=== PATIENT | male | born 1940 | race Two or more races ===

== ENCOUNTER 2016-09-19 13:43 | Emergency (ER) | payer OTHER ==
[2016-09-19 13:59] VITALS: TEMP 98.7; BMI 43.4
[2016-09-19] MEDS ORDERED: morphine CARPU-JECT 2 MG/1 ML DISP.SYRIN IVPUSH ONE (14:16)
[2016-09-19] MEDS ORDERED: morphine CARPU-JECT 2 MG/1 ML DISP.SYRIN ONE (14:38)
--- NOTE | 2016-09-19 15:17 | PDOC ---
History of Present Illness - General Chief Complaint: Pain, Acute Stated Complaint: PAIN Time Seen by Provider: 09/19/16 14:00 History Source: Patient Exam Limitations: No Limitations - History of Present Illness Travel History: No Initial Comments: 09/19/16 14:09 76-year-old male presents to the ED with complaints of right lower back pain that began yesterday without fever, chills, nausea, change in urine pattern, recent injury, diarrhea, constipation history of gallstones, history of kidney stones abdominal distention, or rash Timing/Duration: reports: constant Quality: reports: moderate, aching, sharpness Abdominal Pain Onset Location: reports: flank Pain Radiation: reports: back Activities at Onset: reports: none Aggravating Factors: improves with: None Alleviating Factors: improves with: None Past History - Travel Traveled outside of the country in the last 30 days: No - Past Medical History Allergies/Adverse Reactions: Allergies Allergy/AdvReac Type Severity Reaction Status Date / Time No Known Allergies Allergy Verified 09/19/16 13:55 Home Medications: Ambulatory Orders Acetaminophen [Tylenol .Regular Strength -] 650 mg PO Q4H PRN #0 tablet Atorvastatin Ca [Lipitor] 80 mg PO HS #0 tab 04/27/13 Omeprazole [Prilosec (RX)] 40 mg PO DAILY #0 capsule.dr 04/27/13 Aspirin [Aspirin EC] 81 mg PO DAILY 10/19/15 Furosemide [Lasix -] 40 mg PO DAILY 10/19/15 Insulin Aspart [Novolog] 15 unit SQ AC 10/19/15 Insulin Degludec [Tresiba Flextouch U-200] 90 unit SQ DAILY 10/19/15 Metolazone [Zaroxolyn -] 2.5 mg PO DAILY 10/19/15 Metoprolol Tartrate [Lopressor -] 25 mg PO DAILY 10/19/15 Tamsulosin HCl [Flomax] 0.4 mg PO DAILY 10/19/15 Cardiac Disorders: Yes (LA X 2) COPD: Yes Diabetes: Yes GI Disorders: Yes (GERD) HTN: Yes Hypercholesterolemia: Yes - Surgical History Cardiac Surgery: Yes (CATH,cardiac bypass in ) - Psycho/Social/Smoking Cessation Hx Anxiety: No Suicidal Ideation: No Smoking Status: No Smoking History: Former smoker Have you smoked in the past 12 months: No Number of Cigarettes Smoked Daily: 0 If you are a former smoker, when did you quit?: 30 years ago Information on smoking cessation initiated: No Hx Alcohol Use: No Drug/Substance Use Hx: No Substance Use Type: None Hx Substance Use Treatment: No Patient Lives Alone: No Lives with/in: spouse/SO Review of Systems - Review of Systems Able to Perform ROS?: Yes Constitutional: No: Symptoms Reported HEENTM: No: Symptoms Reported Respiratory: No: Symptoms reported Cardiac (ROS): No: Symptoms Reported ABD/GI: No: Symptoms Reported : Yes: Flank Pain Musculoskeletal: Yes: Back Pain Integumentary: No: Symptoms Reported Neurological: No: Symptoms reported Psychiatric: No: Emotional Problems *Physical Exam - Vital Signs Last Vital Signs Temp Pulse Resp BP Pulse Ox 98.7 F 95 H 20 150/59 96 09/19/16 13:56 09/19/16 13:56 09/19/16 13:56 09/19/16 13:56 09/19/16 13:56 - Physical Exam General Appearance: Yes: Nourished, Appropriately Dressed. No: Apparent Distress HEENT: positive: EOMI, RC. negative: Pale Conjunctivae Neck: positive: Supple Respiratory/Chest: positive: Lungs Clear, Normal Breath Sounds. negative: Respiratory Distress, Accessory Muscle Use Cardiovascular: positive: Regular Rhythm, Regular Rate. negative: Murmur Gastrointestinal/Abdominal: positive: Soft, Tenderness (right flank) Musculoskeletal: positive: CVA Tenderness (R) (mild) Integumentary: positive: Normal Color, Warm, Moist Neurologic: positive: Motor Strength 5/5 ( ambulatory) ED Treatment Course - LABORATORY CBC & Chemistry Diagram: 09/19/16 14:28 09/19/16 14:28 - RADIOLOGY Radiology Studies Ordered: Category Date Time Status CHEST X-RAY PORTABLE* [RAD] Stat Radiology 09/19/16 14:15 Taken - Medications Given in the ED: ED Medications Discontinued Medications Generic Name Dose Route Start Last Admin Trade Name Freq PRN Reason Stop Dose Admin Morphine Sulfate 2 mg 09/19/16 14:16 09/19/16 15:00 Morphine Injection - IVPUSH 09/19/16 14:17 2 mg ONCE ONE Administration Medical Decision Making - Medical Decision Making 09/19/16 15:01 Patient with complaints of right flank right lower back pain. Patient exam had mild right CVA tenderness with mild right flank pain and right posterior iliac crest discomfort patient ordered for labs, x-ray, urine and morphine for pain. 09/19/16 16:56 Laboratory Tests 10/19/15 04/15/16 09/19/16 23:00 21:00 14:28 WBC 8.9 D Hgb 11.3 L Hct 35.0 L RDW 16.3 H MPV 9.1 Neutrophils % 82.8 Sodium Potassium Chloride Carbon Dioxide Anion Gap BUN Creatinine 1.7 H 2.5 H D Random Glucose AST ALT Total Protein Albumin Lipase Urine Glucose (UA) Urine Ketones Urine Blood Urine Nitrite Ur Leukocyte Esterase Urine RBC Urine WBC 09/19/16 09/19/16 09/19/16 14:28 14:28 14:28 WBC Hgb Hct RDW MPV Neutrophils % Sodium 139 Potassium 4.1 Chloride 101 Carbon Dioxide 25 Anion Gap 13 BUN 47 H Creatinine 2.1 H Random Glucose 167 H D AST 13 L D ALT 15 D Total Protein 7.5 Albumin 3.0 L Lipase 133 Urine Glucose (UA) 1+ H Urine Ketones Negative Urine Blood 1+ H Urine Nitrite Negative Ur Leukocyte Esterase Negative Urine RBC 1 Urine WBC <1 Chest x-ray shows cardiomegaly without acute disease. Patient states feeling better after receiving the morphine. Patient will be discharged home to follow up with his primary care physician. *DC/Admit/Observation/Transfer Diagnosis at time of Disposition: Right flank pain - Discharge Dispostion Disposition: HOME Condition at time of disposition: Improved - Referrals Referrals: Diamante Alvarado MD [Primary Care Provider] - - Patient Instructions Printed Discharge Instructions: DI for Flank Pain Additional Instructions: Take Motrin for discomfort and follow-up with your primary care physician. Return to ED if symptoms worsen
[2016-09-19 15:22] LABS: BASOPHIL 0.5 % (0-2.0); EOSINOPHIL 0.4 % (0-4.5); MCH 26.9 pg (25.7-33.7); MCHC 32.2 g/dl (32.0-35.9); MEAN CELL VOLUME 83.6 fl (80-96); MEAN PLT VOLUME 9.1 fl (7.5-11.1); NEUTROPHILS 82.8 % (42.8-82.8); PLATELET COUNT 175 K/MM3 (134-434); RDW 16.3 % (11.9-15.9); WHITE BLOOD COUNT 8.9 K/mm3 (4.0-10.0)
[2016-09-19 15:25] LABS: URINE APPEARANCE CLEAR; URINE BILIRUBIN NEGATIVE (NEGATIVE); URINE COLOR STRAW; URINE GLUCOSE (UA) 1+ (NEGATIVE); URINE KETONE NEGATIVE (NEGATIVE); URINE LEUK ESTERASE NEGATIVE (NEGATIVE); URINE NITRITE NEGATIVE (NEGATIVE); URINE PROTEIN NEGATIVE (NEGATIVE); URINE UROBILINOGEN NEGATIVE E.U./dl (0.2-1.0)
[2016-09-19 15:29] LABS: BILIRUBIN,TOTAL 0.6 mg/dL (0.2-1.0); COCKROFT - GAULT 43.46; CREATININE 2.1 mg/dL (0.7-1.3); TOT PROT 7.5 g/dl (6.4-8.2); URINE BLOOD 1+ (NEGATIVE)
[2016-09-19 15:35] LABS: URINE HYALINE CAST 4 /lpf; URINE MUCUS RARE; URINE RBC 1 /hpf (0-3); URINE WBC <1 /hpf (3-5)
[2016-09-19 19:00] VITALS: BP 130/71; PULSE 81
== END 2016-09-19 17:20 | disposition home or self-care (01) ==
LOC: JER 13:43
PROC: 3E033NZ Introduction of Analgesics, Hypnotics, Sedatives into Peripheral Vein, Percutaneous Approach (ICD-10-PCS; principal; 2016-09-19)
DX: R10.31 Right lower quadrant pain (principal); I10 Essential (primary) hypertension; J44.9 Chronic obstructive pulmonary disease, unspecified; I25.2 Old myocardial infarction; Z79.4 Long term (current) use of insulin; Z79.82 Long term (current) use of aspirin; K21.9 Gastro-esophageal reflux disease without esophagitis; E78.00 Pure hypercholesterolemia, unspecified; Z87.891 Personal history of nicotine dependence
CPT/HCPCS: 36415; 71010-TC; 80053; 81003; 81015; 83690; 85025; 87086; 99283-25

== ENCOUNTER 2016-10-13 19:17 | Inpatient (IN) | payer OTHER ==
[2016-10-13] MEDS ORDERED: KETOROLAC TROMETHAMINE 30 MG/1 ML VIAL IVPUSH ONE (20:35)
[2016-10-13] MEDS ORDERED: SODIUM CHLORIDE 0.9% 500 ML INFUS.BAG IV ONE (20:36)
[2016-10-13] MEDS ORDERED: KETOROLAC TROMETHAMINE 30 MG/1 ML VIAL ONE (21:01)
[2016-10-13 21:10] LABS: BASOPHIL 0.7 % (0-2.0); MCH 26.5 pg (25.7-33.7); MEAN CELL VOLUME 82.9 fl (80-96); PLATELET COUNT 208 K/MM3 (134-434); RDW 16.3 % (11.9-15.9); WHITE BLOOD COUNT 10.6 K/mm3 (4.0-10.0)
[2016-10-13] MEDS ORDERED: FUROSEMIDE 40 MG/4 ML INJECTABLE VIAL IVPB ONE (21:22)
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
[2016-10-13 21:31] LABS: ALBUMIN 3.1 g/dl (3.4-5.0); ANION GAP 11 (8-16); BILIRUBIN,TOTAL 0.8 mg/dL (0.2-1.0); CALCIUM 8.6 mg/dL (8.5-10.1); CO2 27 mmol/L (21-32); GLUCOSE,RANDOM 76 mg/dL (74-106); SGOT/AST 16 U/L (15-37); SGPT/ALT 17 U/L (12-78); TOT PROT 7.7 g/dl (6.4-8.2)
[2016-10-13 21:34] LABS: ALK PHOS 122 U/L (45-117); TROPONIN I < 0.02 ng/ml (0.00-0.05)
[2016-10-13] MEDS ORDERED: morphine CARPU-JECT 2 MG/1 ML DISP.SYRIN IVPUSH ONE (21:40)
[2016-10-13] MEDS ORDERED: METOPROLOL SUCCINATE 25 MG TAB.SR.24H (FP) PO ONE (23:06)
[2016-10-13] MEDS ORDERED: TAMSULOSIN HCL 0.4 MG CAP.ER.24H (FP) PO ONE (23:10)
[2016-10-13] MEDS ORDERED: morphine CARPU-JECT 2 MG/1 ML DISP.SYRIN ONE (23:32)
[2016-10-13] MEDS ORDERED: TAMSULOSIN HCL 0.4 MG CAP.ER.24H (FP) ONE (23:33)
[2016-10-13] MEDS ORDERED: METOPROLOL SUCCINATE 50 MG TAB.SR.24H (FP) ONE (23:33)
[2016-10-13] MEDS ORDERED: FUROSEMIDE 40 MG/4 ML INJECTABLE VIAL ONE (23:33)
[2016-10-14] MEDS ORDERED: ACETAMINOPHEN 1000 MG/100 ML VIAL (NON FORMULARY) IVPB ONE
[2016-10-14] MEDS ORDERED: ACETAMINOPHEN INJECTION 100 ML IVPB ONE (01:17)
[2016-10-14] MEDS ORDERED: morphine CARPU-JECT 2 MG/1 ML DISP.SYRIN IVPUSH ONE (01:28)
[2016-10-14] MEDS: FUROSEMIDE 40 MG/4 ML INJECTABLE VIAL IVPB SCH ×2 (07:10→15:19)
[2016-10-14] MEDS ORDERED: FUROSEMIDE 40 MG/4 ML INJECTABLE VIAL ONE (07:11)
[2016-10-14 07:18] LABS: BASOPHIL 0.8 % (0-2.0); EOSINOPHIL 2.6 % (0-4.5); MCH 27.2 pg (25.7-33.7); MEAN CELL VOLUME 82.4 fl (80-96); MEAN PLT VOLUME 8.8 fl (7.5-11.1); NEUTROPHILS 70.5 % (42.8-82.8); PLATELET COUNT 193 K/MM3 (134-434); RDW 16.3 % (11.9-15.9); WHITE BLOOD COUNT 7.2 K/mm3 (4.0-10.0)
[2016-10-14 07:37] LABS: ANION GAP 8 (8-16); CALCIUM 8.3 mg/dL (8.5-10.1); CO2 29 mmol/L (21-32); CREATININE 2.1 mg/dL (0.7-1.3); GLUCOSE,RANDOM 73 mg/dL (74-106)
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
[2016-10-14] MEDS: INSULIN SLIDING SCALE (NOVOLOG) 1 VIAL SQ SCH ×4 (11:10→22:53)
[2016-10-14] MEDS: INSULIN DETEMIR 100 UNITS/ML MDV SQ SCH ×2 (11:11→22:54)
[2016-10-14] MEDS: PANTOPRAZOLE 40 MG TABLET (FP) PO SCH (11:12)
[2016-10-14] MEDS: HEPARIN NA (PORCINE) 5,000 UNITS/ML 1ML VIAL SQ SCH ×2 (11:12→21:02)
[2016-10-14] MEDS ORDERED: INSULIN REGULAR HUMAN 100 UNITS/ML *VIAL ONE (11:15)
--- NOTE | 2016-10-14 14:20 | EKG ---
Test Reason : Blood Pressure : / mmHG Vent. Rate : 091 BPM Atrial Rate : 066 BPM P-R Int : 000 ms QRS Dur : 142 ms QT Int : 400 ms P-R-T Axes : 000 -30 025 degrees QTc Int : 492 ms UNDETERMINED RHYTHM WITH FREQUENT PREMATURE VENTRICULAR COMPLEXES , POSSIBLE ATRIAL FIBRILLATION LEFT AXIS DEVIATION RIGHT BUNDLE BRANCH BLOCK CANNOT RULE OUT INFERIOR INFARCT , AGE UNDETERMINED ABNORMAL ECG WHEN COMPARED WITH ECG OF 24-APR-2013 10:40, POSSIBLE RHYTHM CHANGE Confirmed by JESSE MARCANO MD ([id number]) on 10/14/2016 2:20:00 PM Referred By: Confirmed By:JESSE MARCANO MD
[2016-10-14 16:18] VITALS: BMI 37.5
--- NOTE | 2016-10-14 19:06 | HP ---
Admitting History and Physical - Primary Care Physician PCP: pain LBP - Admission History of Present Illness: 76 year old male, with a significant PMH of hypertension, [place] x2, cardiac stents (2012), COPD, diabetes, and hyperlipidemia, s/p CABG s/p MA (2012) who presents to the ER with increased low back pain for 4 days, along with increased edema to legs bilateral. The patient reports he has experienced low back pain in the past, however, reports he has been unable to walk without pain today. He reports the pain is localized to the lumbar region of his spine with pain to bilateral paraspinal muscles. ++ numbness in legs,( HX of DM); difficulty walking, no BB issues. VAs 5/10 He denies dysuria, frequency, urgency and hematuria. no weight loss. History Source: Patient, Medical Record Limitations to Obtaining History: No Limitations - Past Medical History Cardiovascular: Yes: HTN, MA, Other (CABG) Renal/: Yes: Renal Inusuff Endocrine: Yes: Diabetes Mellitus - Past Surgical History Past Surgical History: Yes: Bypass, CABG - Smoking History Smoking history: Never smoked Have you smoked in the past 12 months: No Aproximately how many cigarettes per day: 0 If you are a former smoker, when did you quit?: 30 years ago - Alcohol/Substance Use Hx Alcohol Use: No - Social History ADL: Independent History of Recent Travel: No Home Medications - Allergies Allergies/Adverse Reactions: Allergies Allergy/AdvReac Type Severity Reaction Status Date / Time No Known Allergies Allergy Verified 10/13/16 19:32 - Home Medications Home Medications: Ambulatory Orders Atorvastatin Ca [Lipitor] 80 mg PO HS #0 tab 04/27/13 Omeprazole [Prilosec (RX)] 40 mg PO DAILY #0 capsule. 04/27/13 Aspirin [Aspirin EC] 81 mg PO DAILY 10/19/15 Furosemide [Lasix -] 40 mg PO DAILY 10/19/15 Insulin Aspart [Novolog] 15 unit SQ AC 10/19/15 Insulin Degludec [Tresiba Flextouch U-200] 70 unit SQ AM 10/19/15 Metolazone [Zaroxolyn -] 2.5 mg PO DAILY 10/19/15 Metoprolol Tartrate [Lopressor -] 25 mg PO DAILY 10/19/15 Tamsulosin HCl [Flomax] 0.4 mg PO DAILY 10/19/15 Acetaminophen W/ Codeine #3 [Tylenol # 3 -] 1 tab PO PRN 10/13/16 Potassium Chloride 20 meq PO DAILY 10/13/16 Tamsulosin HCl [Flomax] 0.4 mg PO DAILY 10/13/16 Family Disease History - Family Disease History Family Disease History: Diabetes: Father, Mother Physical Examination Vital Signs: Vital Signs Temperature 97.8 F 10/14/16 15:50 Pulse Rate 80 10/14/16 15:50 Respiratory Rate 20 10/14/16 15:50 Blood Pressure 125/72 10/14/16 15:50 O2 Sat by Pulse Oximetry (%) 97 10/14/16 15:50 Constitutional: Yes: Well Nourished, No Distress, Calm Eyes: Yes: WNL, Conjunctiva Clear, EOM Intact HENT: Yes: WNL, Atraumatic, Normocephalic Neck: Yes: WNL, Supple, Trachea Midline Cardiovascular: Yes: WNL, Regular Rate and Rhythm Respiratory: Yes: WNL, Regular, CTA Bilaterally, Other (decreased at right base) Gastrointestinal: Yes: WNL, Normal Bowel Sounds, Other (midline surgical scar) Renal/: Yes: WNL Breast(s): Yes: WNL Musculoskeletal: Yes: WNL, Back Pain, Joint Stiffness, Muscle Pain Extremities: Yes: WNL Edema: No Peripheral Pulses WNL: Yes Integumentary: Yes: WNL Neurological: Yes: WNL, Alert, Oriented ...Motor Strength: WNL Psychiatric: Yes: WNL, Alert, Oriented Labs: CBC, BMP 10/14/16 06:51 10/14/16 06:51 Problem List - Problems (1) CHF (congestive heart failure) Assessment/Plan: elevated BMP ++Le edema + rales on exam EGAN not manifesteddue to severe DJD / possible spinal stenosis as limiting factor Plan IV lasix BID Follow BUN / Cr daily weights Code(s): I50.9 - HEART FAILURE, UNSPECIFIED (2) Spinal stenosis of lumbar region Assessment/Plan: MRI ordered Neurology consult ordered PT evaluation Code(s): M48.06 - SPINAL STENOSIS, LUMBAR REGION (3) Musculoskeletal pain Assessment/Plan: due to LB pathology neuropathy ?? Code(s): M79.1 - MYALGIA (4) HTN (hypertension) Assessment/Plan: controlled continue medications Code(s): I10 - ESSENTIAL (PRIMARY) HYPERTENSION
[2016-10-14 20:12] LABS: URINE APPEARANCE CLEAR; URINE BILIRUBIN NEGATIVE (NEGATIVE); URINE BLOOD NEGATIVE (NEGATIVE); URINE COLOR STRAW; URINE GLUCOSE (UA) NEGATIVE (NEGATIVE); URINE KETONE NEGATIVE (NEGATIVE); URINE LEUK ESTERASE NEGATIVE (NEGATIVE); URINE NITRITE NEGATIVE (NEGATIVE); URINE PROTEIN NEGATIVE (NEGATIVE); URINE UROBILINOGEN NEGATIVE E.U./dl (0.2-1.0)
[2016-10-14] MEDS: ATORVASTATIN CA 80 MG TABLET (FP) PO SCH (22:53)
[2016-10-15] MEDS: INSULIN SLIDING SCALE (NOVOLOG) 1 VIAL SQ SCH ×4 (06:29→23:04)
[2016-10-15] MEDS: FUROSEMIDE 40 MG/4 ML INJECTABLE VIAL IVPB SCH ×2 (06:29→15:45)
[2016-10-15] MEDS: INSULIN DETEMIR 100 UNITS/ML MDV SQ SCH ×2 (06:29→23:01)
[2016-10-15 07:45] LABS: BASOPHIL 0.8 % (0-2.0); EOSINOPHIL 2.4 % (0-4.5); MCH 27.4 pg (25.7-33.7); MCHC 33.6 g/dl (32.0-35.9); MEAN CELL VOLUME 81.6 fl (80-96); MEAN PLT VOLUME 8.3 fl (7.5-11.1); PLATELET COUNT 227 K/MM3 (134-434); RDW 16.5 % (11.9-15.9); WHITE BLOOD COUNT 8.9 K/mm3 (4.0-10.0)
[2016-10-15 09:00] LABS: CALCIUM 9.3 mg/dL (8.5-10.1)
[2016-10-15 09:08] LABS: ANION GAP 11 (8-16); CO2 30 mmol/L (21-32); GLUCOSE,RANDOM 74 mg/dL (74-106); MAGNESIUM 1.9 mg/dL (1.8-2.4)
[2016-10-15] MEDS: PANTOPRAZOLE 40 MG TABLET (FP) PO SCH (09:28)
[2016-10-15] MEDS: HEPARIN NA (PORCINE) 5,000 UNITS/ML 1ML VIAL SQ SCH ×2 (09:28→23:39)
[2016-10-15] MEDS ORDERED: BETAMET ACET/BETAMET NA PH 30 MG/5 ML VIAL ONE (14:43)
[2016-10-15] MEDS ORDERED: LIDOCAINE HCL 1%, 10 MG/ML (20ML VIAL) ONE (14:43)
[2016-10-15] MEDS ORDERED: LIDOCAINE HCL 1%, 10 MG/ML (20ML VIAL) IJ ONE (14:46)
[2016-10-15] MEDS ORDERED: IOHEXOL 180 MG/1 ML ML IJ ONE (14:47)
[2016-10-15] MEDS ORDERED: BUPIVACAINE HCL/PF 0.25% (2.5MG/ML) 10 ML VIAL IJ ONE (14:49)
[2016-10-15] MEDS ORDERED: BETAMET ACET/BETAMET NA PH 30 MG/5 ML VIAL IM ONE (14:50)
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
--- NOTE | 2016-10-15 17:37 | PN ---
Progress Note (short form) - Note Progress Note: 76 year old male, with a significant past medical history of hypertension, [place] x2 , cardiac stents (2012), COPD, diabetes, and hyperlipidemia, who presents to the emergency department with increased low back pain for 4 days. The patient reports he has experienced low back pain in the past, however, reports he has been unable to walk without pain today. He reports the pain is localized to the lumbar region of his spine with pain to bilateral paraspinal muscles. ++ numbness in legs,( HX of DM); difficulty walking, no BB issues. VAs 5/10 He denies dysuria, frequency, urgency and hematuria. no weight loss. FU : pain improved from yesterday , s/p epidural walking around without assist studies: MRI LSPINE : Impression: Moderate degenerative disease of lumbosacral spine. Degenerative changes articular facets predominant articular facets L4 L5, L5- S1. Diffuse bulging annulus L4-L5 contributing to minimal degree of stenosis with no evidence of large disc herniation. No evidence of spondylolisthesis, spondylolysis. The visualized retroperitoneal structures unremarkable. Doppler --no DVT - History Source History Provided By: Patient, Medical Record - Past Medical History Cardio/Vascular: Yes: HTN Renal/: Yes: Renal Inusuff Endocrine: Yes: Diabetes Mellitus - Alcohol/Substance Use Hx Alcohol Use: No - Smoking History Smoking history: Never smoked Have you smoked in the past 12 months: No Aproximately how many cigarettes per day: 0 If you are a former smoker, when did you quit?: 30 years ago - Social History Usual Living Arrangement: With Child ADL: Independent Home Medications - Allergies Allergies/Adverse Reactions: Allergies Allergy/AdvReac Type Severity Reaction Status Date / Time No Known Allergies Allergy Verified 10/13/16 19:32 - Home Medications Home Medications: Ambulatory Orders Atorvastatin Ca [Lipitor] 80 mg PO HS #0 tab 04/27/13 Omeprazole [Prilosec (RX)] 40 mg PO DAILY #0 oliver. 04/27/13 Aspirin [Aspirin EC] 81 mg PO DAILY 10/19/15 Furosemide [Lasix -] 40 mg PO DAILY 10/19/15 Insulin Aspart [Novolog] 15 unit SQ AC 10/19/15 Insulin Degludec [Tresiba Flextouch U-200] 70 unit SQ AM 10/19/15 Metolazone [Zaroxolyn -] 2.5 mg PO DAILY 10/19/15 Metoprolol Tartrate [Lopressor -] 25 mg PO DAILY 10/19/15 Tamsulosin HCl [Flomax] 0.4 mg PO DAILY 10/19/15 Acetaminophen W/ Codeine #3 [Tylenol # 3 -] 1 tab PO PRN 10/13/16 Potassium Chloride 20 meq PO DAILY 10/13/16 Tamsulosin HCl [Flomax] 0.4 mg PO DAILY 10/13/16 Family Disease History - Family Disease History Family Disease History: Diabetes: Father, Mother Physical Exam-Neuro Vital Signs: Vital Signs Period Temp Pulse Resp BP Sys/Whitehead Pulse Ox Last 24 Hr 97.7 F-98.1 F 70-89 18-20 117-140/60-81 97-97 Constitutional: Yes: Well Nourished, No Distress Neck: Yes: Supple Cardiovascular: Yes: Regular Rate and Rhythm Respiratory: Yes: Regular Labs: CBCD WBC 8.9 K/mm3 (4.0-10.0) 10/15/16 07:00 RBC 4.28 M/mm3 (4.00-5.60) 10/15/16 07:00 Hgb 11.7 GM/dL (11.7-16.9) D 10/15/16 07:00 Hct 35.0 % (35.4-49) L 10/15/16 07:00 MCV 81.6 fl (80-96) 10/15/16 07:00 MCHC 33.6 g/dl (32.0-35.9) 10/15/16 07:00 RDW 16.5 % (11.9-15.9) H 10/15/16 07:00 Plt Count 227 K/MM3 (134-434) 10/15/16 07:00 MPV 8.3 fl (7.5-11.1) 10/15/16 07:00 CMP Sodium 136 mmol/L (136-145) 10/15/16 07:00 Potassium 3.8 mmol/L (3.5-5.1) 10/15/16 07:00 Chloride 95 mmol/L (98-107) L 10/15/16 07:00 Carbon Dioxide 30 mmol/L (21-32) 10/15/16 07:00 Anion Gap 11 (8-16) 10/15/16 07:00 BUN 49 mg/dL (7-18) H 10/15/16 07:00 Creatinine 2.0 mg/dL (0.7-1.3) H 10/15/16 07:00 Creat Clearance w eGFR 32.56 (>60) 10/13/16 21:00 Calcium 9.3 mg/dL (8.5-10.1) 10/15/16 07:00 Total Bilirubin 0.8 mg/dL (0.2-1.0) D 10/13/16 21:00 AST 16 U/L (15-37) D 10/13/16 21:00 ALT 17 U/L (12-78) 10/13/16 21:00 Alkaline Phosphatase 122 U/L (45-117) H D 10/13/16 21:00 Total Protein 7.7 g/dl (6.4-8.2) 10/13/16 21:00 Albumin 3.1 g/dl (3.4-5.0) L 10/13/16 21:00 - Neuro Exam Level Of Consciousness: Yes: Alert, Oriented to Person (EOMI, VFF, no facial, motor 5/5, sig edema in LE 2+, surgical scars knees, +PVD changes, reflexes absent LE, no level. ) NIH Stroke Scale - Total Score NIH Stroke Scale Score: 0 Imaging - Results Cat Scan: Pending (CT L Spine -spondylosis, report P), Report Reviewed, Image Reviewed Assessment/Plan 76 year old male, with a significant past medical history of hypertension, [place] x2 , cardiac stents (2012), COPD, diabetes, and hyperlipidemia, with increased low back pain for 4 days. ++ numbness in legs,( HX of DM); difficulty walking, no BB issues. no focal weakness, suspect spinal stenosis, combined with PVD and diabetic neuropathy no signs of a myelopathy or acute radiculopathy MRI shows more facet pathology than NF disease , would manage conservatively with NSAIDS, PT etc Doppler (-) for DVT can add neurontin 300qd, watch creatinine thanks for including us in his care Dr Ching [phone] Problem List - Problems (1) Spinal stenosis of lumbar region Code(s): M48.06 - SPINAL STENOSIS, LUMBAR REGION (2) Unable to ambulate Code(s): R26.2 - DIFFICULTY IN WALKING, NOT ELSEWHERE CLASSIFIED (3) Musculoskeletal pain Code(s): M79.1 - MYALGIA
[2016-10-15] MEDS ORDERED: ACETAMINOPHEN 325 MG TABLET (FP) PO PRN (21:09)
[2016-10-15] MEDS ORDERED: ACETAMINOPHEN WITH CODEINE 300MG/30MG TABLET PO PRN (21:10)
--- NOTE | 2016-10-15 21:31 | PN ---
Progress Note (short form) - Note Progress Note: seen and examined in his room sitting in chair states less back pain also reports effort of breathing much improved significantly reduced edema to LE weight 233lb >> 227lb today Vital Signs Period Temp Pulse Resp BP Sys/Whitehead Pulse Ox Last 24 Hr 97.8 F-98.1 F 70-89 18-18 117-140/64-81 97 neck supple heart reg S1/s2 Lungs clear bilat abd soft non tender Ext trace edema gait improved / uses cane inefficiently able to ambulate without assistance CBC, BMP 10/15/16 07:00 10/15/16 07:00 Active Medications Acetaminophen (Tylenol -) 650 mg PO Q6H PRN PRN Reason: FEVER OR PAIN Acetaminophen/Codeine Phosphate (Tylenol # 3 -) 1 tab PO Q4H PRN PRN Reason: MODERATE PAIN Atorvastatin Calcium (Lipitor -) 80 mg PO HS [facility] Last Admin: 10/14/16 22:53 Dose: 80 mg Furosemide (Lasix Injection -) 40 mg IVPB BID@0600,1400 [facility] Last Admin: 10/15/16 15:45 Dose: 40 mg Heparin Sodium (Porcine) (Heparin -) 5,000 unit SQ BID [facility] Last Admin: 10/15/16 09:28 Dose: Not Given Insulin Aspart (Novolog Vial Sliding Scale -) 1 vial SQ ACHS [facility] PRN Reason: Protocol Last Admin: 10/15/16 18:06 Dose: 4 units Insulin Detemir (Levemir Vial) 40 units SQ BID@0700,2200 [facility] Last Admin: 10/15/16 06:29 Dose: Not Given Pantoprazole Sodium (Protonix -) 40 mg PO DAILY [facility] Last Admin: 10/15/16 09:28 Dose: Not Given appreciate Pain management appreciate Neurology Problem List - Problems (1) CHF (congestive heart failure) Assessment/Plan: elevated BMP ++Le edema >> trace edema + rales on exam >> lungs clear EGAN not manifested due to severe DJD / possible spinal stenosis as limiting factor Plan IV lasix BID Follow BUN / Cr .. stable Cr=2 ( baseline) daily weights >>5-6 lb weight loss Code(s): I50.9 - HEART FAILURE, UNSPECIFIED (2) Spinal stenosis of lumbar region Assessment/Plan: MRI ordered Neurology consult ordered PT evaluation S/P epidural with some improvement tonight will benefit from PT Home arrangements in process Code(s): M48.06 - SPINAL STENOSIS, LUMBAR REGION (3) Musculoskeletal pain Assessment/Plan: due to LB pathology neuropathy ?? Code(s): M79.1 - MYALGIA (4) HTN (hypertension) Assessment/Plan: controlled continue medications Code(s): I10 - ESSENTIAL (PRIMARY) HYPERTENSION
[2016-10-15] MEDS: ATORVASTATIN CA 80 MG TABLET (FP) PO SCH (22:57)
[2016-10-16] MEDS: INSULIN DETEMIR 100 UNITS/ML MDV SQ SCH (06:16)
[2016-10-16] MEDS: INSULIN SLIDING SCALE (NOVOLOG) 1 VIAL SQ SCH ×2 (06:18→11:49)
[2016-10-16 07:34] LABS: BASOPHIL 0.1 % (0-2.0); MCH 27.2 pg (25.7-33.7); MCHC 33.1 g/dl (32.0-35.9); MEAN PLT VOLUME 8.5 fl (7.5-11.1); NEUTROPHILS 90.8 % (42.8-82.8); PLATELET COUNT 230 K/MM3 (134-434); WHITE BLOOD COUNT 7.1 K/mm3 (4.0-10.0)
[2016-10-16 08:41] LABS: ANION GAP 12 (8-16); CALCIUM 8.8 mg/dL (8.5-10.1); CO2 29 mmol/L (21-32); CREATININE 2.1 mg/dL (0.7-1.3)
[2016-10-16 09:34] LABS: GLUCOSE,RANDOM 315 mg/dL (74-106)
[2016-10-16] MEDS: PANTOPRAZOLE 40 MG TABLET (FP) PO SCH (10:10)
[2016-10-16] MEDS: HEPARIN NA (PORCINE) 5,000 UNITS/ML 1ML VIAL SQ SCH (10:10)
[2016-10-16] MEDS ORDERED: INSULIN (NOVOLOG) ASPART 100 UNITS/ML 10ML VIAL ONE (11:45)
[2016-10-16 13:33] VITALS: BP 133/72; PULSE 90; TEMP 97.9
--- NOTE | 2016-10-29 13:15 | OP ---
DATE OF OPERATION: 10/15/2016 PREOPERATIVE DIAGNOSIS: Low back pain with lumbar radiculopathy on the left side. POSTOPERATIVE DIAGNOSIS: Low back pain with lumbar radiculopathy on the left side. PROCEDURE: Lumbar epidural steroid injection, interlaminar approach, at the L4-L5 level on the left side. ANESTHESIA: Local and MAC. PR INTERN: Georgia Steven CRNA PROCEDURE: I discussed with him about risks, benefits, and alternative treatment not only limited to infection, fever, headache, numbness, tingling, weakness, injury to nerves, blood vessels, and muscles. He understood and signed written consent. Patient was placed in the prone position, head, abdomen, and legs supported with pillows. Lumbosacral area was prepped and draped with Betadine x3 and alcohol x3. Under fluoroscopy, left L4-L5 level was identified. At this level, 3 mL of 1% lidocaine was . A 22-gauge, 3-1/2-inch Tuohy needle was used to approach the epidural space with loss of resistance technique via interlaminar approach under intermittent fluoroscopy. After negative aspiration, 2 mL of Omnipaque 180 was injected to see the flow of dye into the epidural space both cranially and caudally. There was no venous uptake or CSF uptake. Then, 2.5 mL of Celestone mixed with 2.5 mL of 0.25% Marcaine, total volume mL, injected at this level after negative aspiration. While needle was withdrawn, 1 mL of 1% lidocaine was infiltrated. Patient tolerated the procedure well. There was no immediate complication. Bleeding was checked. Betadine was wiped off. Sterile bandage was placed. Patient was transferred to the recovery room and from there to the floor. Patient was under observation of nursing care. Patient was advised to follow up with me. JAIME BERMAN M.D. WAQAS/[id number]
== END 2016-10-16 13:48 | disposition home or self-care (01) | DRG 551 ==
LOC: JER 19:17 → JERBED 23:58 → J5S 10-14 14:28
PROVIDERS: ADMIT Family Medicine; ATTEND Family Medicine
PROC: 3E0R3BZ Introduction of Anesthetic Agent into Spinal Canal, Percutaneous Approach (ICD-10-PCS; 2016-10-15)
PROC: 3E0R33Z Introduction of Anti-inflammatory into Spinal Canal, Percutaneous Approach (ICD-10-PCS; principal; 2016-10-15 13:30)
DX: M48.06 Spinal stenosis, lumbar region (principal); I50.33 Acute on chronic diastolic (congestive) heart failure; I25.2 Old myocardial infarction; J44.9 Chronic obstructive pulmonary disease, unspecified; E78.5 Hyperlipidemia, unspecified; Z79.4 Long term (current) use of insulin; I11.0 Hypertensive heart disease with heart failure; E11.40 Type 2 diabetes mellitus with diabetic neuropathy, unspecified; Z95.1 Presence of aortocoronary bypass graft
CPT/HCPCS: 36415; 71010-TC; 71020-TC; 72131-TC; 72148-TC; 76000-TC; 80048; 80053; 81003; 82550; 83735; 83880; 84484; 85025; 93005; 93010; 93970-TC; 99284-25; J1644

== ENCOUNTER 2016-11-22 18:49 | Inpatient (IN) | payer OTHER ==
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
[2016-11-22] MEDS ORDERED: CEFAZOLIN 1 GM in DEXTROSE 5%-WATER - 50 ML IVPB ONE (22:41)
[2016-11-22 23:01] LABS: BASOPHIL 0.6 % (0-2.0); EOSINOPHIL 1.3 % (0-4.5); MCH 26.6 pg (25.7-33.7); MEAN CELL VOLUME 83.1 fl (80-96); MEAN PLT VOLUME 8.7 fl (7.5-11.1); NEUTROPHILS 79.8 % (42.8-82.8); PLATELET COUNT 211 K/MM3 (134-434); RDW 17.5 % (11.9-15.9); WHITE BLOOD COUNT 8.3 K/mm3 (4.0-10.0)
[2016-11-22] MEDS ORDERED: CEFAZOLIN (PRE-DOCKED) 50 ML IVPB ONE (23:24)
[2016-11-22 23:39] LABS: ALBUMIN 2.9 g/dl (3.4-5.0); ANION GAP 10 (8-16); BILIRUBIN,TOTAL 0.5 mg/dL (0.2-1.0); CALCIUM 8.5 mg/dL (8.5-10.1); CO2 25 mmol/L (21-32); CREATININE 1.7 mg/dL (0.7-1.3); GLUCOSE,RANDOM 131 mg/dL (74-106); SGPT/ALT 22 U/L (12-78); TOT PROT 6.7 g/dl (6.4-8.2)
[2016-11-22 23:40] LABS: ALK PHOS 143 U/L (45-117)
[2016-11-22 23:52] LABS: URINE APPEARANCE CLEAR; URINE BILIRUBIN NEGATIVE (NEGATIVE); URINE BLOOD 1+ (NEGATIVE); URINE COLOR COLORLESS; URINE GLUCOSE (UA) NEGATIVE (NEGATIVE); URINE KETONE NEGATIVE (NEGATIVE); URINE LEUK ESTERASE NEGATIVE (NEGATIVE); URINE NITRITE NEGATIVE (NEGATIVE); URINE PROTEIN NEGATIVE (NEGATIVE); URINE UROBILINOGEN NEGATIVE mg/dL (0.2-1.0)
[2016-11-23 00:05] LABS: SGOT/AST 20 U/L (15-37)
[2016-11-23 00:43] LABS: URINE BACTERIA RARE /hpf (NONE SEEN); URINE MUCUS RARE; URINE RBC 1 /hpf (0-3); URINE WBC <1 /hpf (3-5)
--- NOTE | 2016-11-23 02:52 | PN ---
Teaching Attending Note ATTENDING PHYSICIAN STATEMENT I saw and evaluated the patient. I reviewed the resident's note and discussed the case with the resident. I agree with the resident's findings and plan as documented. SUBJECTIVE: OBJECTIVE: Vital Signs Temperature 98.6 F 11/22/16 18:56 Pulse Rate 87 11/22/16 18:56 Respiratory Rate 19 11/22/16 18:56 Blood Pressure 134/75 11/22/16 18:56 O2 Sat by Pulse Oximetry (%) 95 11/22/16 19:26 CBCD WBC 8.3 K/mm3 (4.0-10.0) 11/22/16 22:48 RBC 3.96 M/mm3 (4.00-5.60) L 11/22/16 22:48 Hgb 10.5 GM/dL (11.7-16.9) L D 11/22/16 22:48 Hct 32.9 % (35.4-49) L 11/22/16 22:48 MCV 83.1 fl (80-96) 11/22/16 22:48 MCHC 32.0 g/dl (32.0-35.9) 11/22/16 22:48 RDW 17.5 % (11.9-15.9) H 11/22/16 22:48 Plt Count 211 K/MM3 (134-434) 11/22/16 22:48 MPV 8.7 fl (7.5-11.1) 11/22/16 22:48 CMP Sodium 142 mmol/L (136-145) 11/22/16 22:48 Potassium 4.2 mmol/L (3.5-5.1) 11/22/16 22:48 Chloride 107 mmol/L (98-107) D 11/22/16 22:48 Carbon Dioxide 25 mmol/L (21-32) 11/22/16 22:48 Anion Gap 10 (8-16) 11/22/16 22:48 BUN 26 mg/dL (7-18) H D 11/22/16 22:48 Creatinine 1.7 mg/dL (0.7-1.3) H 11/22/16 22:48 Creat Clearance w eGFR 39.28 (>60) 11/22/16 22:48 Random Glucose 131 mg/dL (74-106) H D 11/22/16 22:48 Calcium 8.5 mg/dL (8.5-10.1) 11/22/16 22:48 Total Bilirubin 0.5 mg/dL (0.2-1.0) D 11/22/16 22:48 AST 20 U/L (15-37) D 11/22/16 22:48 ALT 22 U/L (12-78) D 11/22/16 22:48 Alkaline Phosphatase 143 U/L (45-117) H 11/22/16 22:48 Total Protein 6.7 g/dl (6.4-8.2) 11/22/16 22:48 Albumin 2.9 g/dl (3.4-5.0) L 11/22/16 22:48 Home Medications Medication Instructions Recorded Omeprazole [Prilosec (RX)] 40 mg PO DAILY #0 capsule. 04/27/13 Aspirin [Aspirin EC] 81 mg PO DAILY 10/19/15 Insulin Degludec [Tresiba 70 unit SQ AM 10/19/15 Flextouch U-200] Tamsulosin HCl [Flomax] 0.4 mg PO DAILY 10/13/16 Atorvastatin Ca [Lipitor] 80 mg PO HS tablet 10/16/16 Furosemide [Lasix -] 40 mg PO BID #60 tablet 10/16/16 Insulin Degludec [Tresiba 0 unit SQ DAILY 11/22/16 Flextouch U-200] Metolazone 2.5 mg PO DAILY 11/22/16 Pot Chloride/Pot Bicarb/Cit AC 20 meq PO DAILY 11/22/16 [Potassium Cl 25 Meq Tab Eff] ASSESSMENT AND PLAN: The patient is a 76 year old male with a significant past medical history of HTN , [place] x 2, cardiac stents (2012), COPD, diabetes, GERD, and HLD who presents to the ED with complaints of bilateral leg edema for 2 days. # Acute BL edema of LE r/o DVT # ARF IVF, repeat levels in am
[2016-11-23] MEDS ORDERED: FUROSEMIDE 40 MG/4 ML INJECTABLE VIAL IVPUSH ONE (03:08)
--- NOTE | 2016-11-23 03:11 | HP ---
CHIEF COMPLAINT: PCP: HISTORY OF PRESENT ILLNESS: 10/13/16 for CHF exacerbation ER course was notable for: (1) (2) (3) Recent Travel: PAST MEDICAL HISTORY: PAST SURGICAL HISTORY: Social History: Smoking: Alcohol: Drugs: Family History: Allergies No Known Allergies Allergy (Verified 11/22/16 20:51) HOME MEDICATIONS: Home Medications Medication Instructions Recorded Omeprazole [Prilosec (RX)] 40 mg PO DAILY #0 capsule. 04/27/13 Aspirin [Aspirin EC] 81 mg PO DAILY 10/19/15 Insulin Degludec [Tresiba 70 unit SQ AM 10/19/15 Flextouch U-200] Tamsulosin HCl [Flomax] 0.4 mg PO DAILY 10/13/16 Atorvastatin Ca [Lipitor] 80 mg PO HS tablet 10/16/16 Furosemide [Lasix -] 40 mg PO BID #60 tablet 10/16/16 Insulin Degludec [Tresiba 0 unit SQ DAILY 11/22/16 Flextouch U-200] Metolazone 2.5 mg PO DAILY 11/22/16 Pot Chloride/Pot Bicarb/Cit AC 20 meq PO DAILY 11/22/16 [Potassium Cl 25 Meq Tab Eff] REVIEW OF SYSTEMS CONSTITUTIONAL: Absent: fever, chills, diaphoresis, generalized weakness, malaise, loss of appetite, weight change HEENT: Absent: rhinorrhea, nasal congestion, throat pain, throat swelling, difficulty swallowing, mouth swelling, ear pain, eye pain, visual changes CARDIOVASCULAR: Absent: chest pain, syncope, palpitations, irregular heart rate, lightheadedness , peripheral edema RESPIRATORY: Absent: cough, shortness of breath, dyspnea with exertion, orthopnea, wheezing, stridor, hemoptysis GASTROINTESTINAL: Absent: abdominal pain, abdominal distension, nausea, vomiting, diarrhea, constipation, melena, hematochezia GENITOURINARY: Absent: dysuria, frequency, urgency, hesitancy, hematuria, flank pain, genital pain MUSCULOSKELETAL: Absent: myalgia, arthralgia, joint swelling, back pain, neck pain SKIN: Absent: rash, itching, pallor HEMATOLOGIC/IMMUNOLOGIC: Absent: easy bleeding, easy bruising, lymphadenopathy, frequent infections ENDOCRINE: Absent: unexplained weight gain, unexplained weight loss, heat intolerance, cold intolerance NEUROLOGIC: Absent: headache, focal weakness or paresthesias, dizziness, unsteady gait, seizure, mental status changes, bladder or bowel incontinence PSYCHIATRIC: Absent: anxiety, depression, suicidal or homicidal ideation, hallucinations. PHYSICAL EXAMINATION Vital Signs - 24 hr 11/22/16 11/22/16 18:56 19:26 Temperature 98.6 F Pulse Rate 87 Respiratory 19 Rate Blood Pressure 134/75 O2 Sat by Pulse 95 95 Oximetry (%) GENERAL: Awake, alert, and fully oriented, in no acute distress. HEAD: Normal with no signs of trauma. EYES: Pupils equal, round and reactive to light, extraocular movements intact, sclera anicteric, conjunctiva clear. No lid lag. EARS, NOSE, THROAT: Ears normal, nares patent, oropharynx clear without exudates. Moist mucous membranes. NECK: Normal range of motion, supple without lymphadenopathy, JVD, or masses. LUNGS: Breath sounds equal, clear to auscultation bilaterally. No wheezes, and no crackles. No accessory muscle use. HEART: Regular rate and rhythm, normal S1 and S2 without murmur, rub or gallop. ABDOMEN: Soft, nontender, not distended, normoactive bowel sounds, no guarding, no rebound, no masses. No hepatomegaly or splenomegaly. MUSCULOSKELETAL: Normal range of motion at all joints. No bony deformities or tenderness. No CVA tenderness. UPPER EXTREMITIES: 2+ pulses, warm, well-perfused. No cyanosis. No clubbing. No peripheral edema. LOWER EXTREMITIES: 2+ pulses, warm, well-perfused. No calf tenderness. No peripheral edema. NEUROLOGICAL: Cranial nerves II-XII intact. Normal speech. Normal gait. PSYCHIATRIC: Cooperative. Good eye contact. Appropriate mood and affect. SKIN: Warm, dry, normal turgor, no rashes or lesions noted, normal capillary refill. Laboratory Results - last 24 hr 11/22/16 11/22/16 11/22/16 22:40 22:48 22:48 WBC 8.3 RBC 3.96 L Hgb 10.5 L D Hct 32.9 L MCV 83.1 MCH 26.6 MCHC 32.0 RDW 17.5 H Plt Count 211 MPV 8.7 Neutrophils % 79.8 Lymphocytes % 11.8 D Monocytes % 6.5 D Eosinophils % 1.3 D Basophils % 0.6 D D-Dimer Cancelled Sodium 142 Potassium 4.2 Chloride 107 D Carbon Dioxide 25 Anion Gap 10 BUN 26 H D Creatinine 1.7 H Creat Clearance w eGFR 39.28 Random Glucose 131 H D Calcium 8.5 Total Bilirubin 0.5 D AST 20 D ALT 22 D Alkaline Phosphatase 143 H B-Natriuretic Peptide Total Protein 6.7 Albumin 2.9 L Urine Color Urine Appearance Urine pH Urine Protein Urine Glucose (UA) Urine Ketones Urine Blood Urine Nitrite Urine Bilirubin Urine Urobilinogen Ur Leukocyte Esterase Urine RBC Urine WBC Urine Bacteria Urine Mucus 11/22/16 11/22/16 11/23/16 22:48 23:09 00:14 WBC RBC Hgb Hct MCV MCH MCHC RDW Plt Count MPV Neutrophils % Lymphocytes % Monocytes % Eosinophils % Basophils % D-Dimer Cancelled Sodium Potassium Chloride Carbon Dioxide Anion Gap BUN Creatinine Creat Clearance w eGFR Random Glucose Calcium Total Bilirubin AST ALT Alkaline Phosphatase B-Natriuretic Peptide 1617.24 H Total Protein Albumin Urine Color Colorless Urine Appearance Clear Urine pH 7.0 D Urine Protein Negative Urine Glucose (UA) Negative Urine Ketones Negative Urine Blood 1+ H Urine Nitrite Negative Urine Bilirubin Negative Urine Urobilinogen Negative Ur Leukocyte Esterase Negative Urine RBC 1 Urine WBC <1 Urine Bacteria Rare Urine Mucus Rare 11/23/16 01:23 WBC RBC Hgb Hct MCV MCH MCHC RDW Plt Count MPV Neutrophils % Lymphocytes % Monocytes % Eosinophils % Basophils % D-Dimer 684 H Sodium Potassium Chloride Carbon Dioxide Anion Gap BUN Creatinine Creat Clearance w eGFR Random Glucose Calcium Total Bilirubin AST ALT Alkaline Phosphatase B-Natriuretic Peptide Total Protein Albumin Urine Color Urine Appearance Urine pH Urine Protein Urine Glucose (UA) Urine Ketones Urine Blood Urine Nitrite Urine Bilirubin Urine Urobilinogen Ur Leukocyte Esterase Urine RBC Urine WBC Urine Bacteria Urine Mucus ASSESSMENT/PLAN:
[2016-11-23] MEDS ORDERED: FUROSEMIDE 40 MG/4 ML INJECTABLE VIAL ONE (03:19)
[2016-11-23 05:08] VITALS: BMI 37.5
[2016-11-23] MEDS ORDERED: FUROSEMIDE 40 MG/4 ML INJECTABLE VIAL IVPUSH SCH (10:00)
[2016-11-23] MEDS ORDERED: ASPIRIN COATED 81 MG TABLET.EC PO SCH (10:00)
[2016-11-23] MEDS ORDERED: HEPARIN NA (PORCINE) 5,000 UNITS/ML 1ML VIAL SQ SCH (10:00)
[2016-11-23] MEDS ORDERED: PANTOPRAZOLE 40 MG TABLET (FP) PO SCH (10:00)
[2016-11-23] MEDS ORDERED: METOLAZONE 2.5 MG TABLET (FP) PO SCH (10:00)
[2016-11-23] MEDS ORDERED: TAMSULOSIN HCL 0.4 MG CAP.ER.24H (FP) PO SCH (10:00)
[2016-11-23] MEDS: INSULIN SLIDING SCALE (NOVOLOG) 1 VIAL SQ SCH ×3 (11:41→21:31)
[2016-11-23] MEDS ORDERED: INSULIN (NOVOLOG) ASPART 100 UNITS/ML 10ML VIAL ONE (11:45)
--- NOTE | 2016-11-23 13:04 | PN ---
Progress Note (short form) - Note Progress Note: ID consult dictated imp/reccd probable chf with lower extremity edema no signs of cellulitis no fevers or leukocytosis d/w Dr Alvarado no need for antibiotics
[2016-11-23] MEDS: FUROSEMIDE 40 MG/4 ML INJECTABLE VIAL IVPUSH SCH (13:10)
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
[2016-11-23] MEDS: HEPARIN NA (PORCINE) 5,000 UNITS/ML 1ML VIAL SQ SCH (21:32)
[2016-11-23] MEDS: PANTOPRAZOLE 20 MG TABLET (FP) PO SCH (21:32)
[2016-11-23] MEDS: ATORVASTATIN CA 80 MG TABLET (FP) PO SCH (21:32)
[2016-11-23] MEDS: INSULIN DETEMIR 100 UNITS/ML MDV SQ SCH (21:33)
[2016-11-23] MEDS: ACETAMINOPHEN 325 MG TABLET (FP) PO PRN (21:50)
[2016-11-23] MEDS ORDERED: ATORVASTATIN CA 80 MG TABLET (FP) PO SCH (22:00)
[2016-11-24] MEDS: FUROSEMIDE 40 MG/4 ML INJECTABLE VIAL IVPUSH SCH ×2 (06:09→14:35)
[2016-11-24] MEDS: INSULIN SLIDING SCALE (NOVOLOG) 1 VIAL SQ SCH ×4 (06:12→21:43)
[2016-11-24] MEDS: INSULIN DETEMIR 100 UNITS/ML MDV SQ SCH ×2 (06:12→21:42)
[2016-11-24 08:08] LABS: BASOPHIL 0.8 % (0-2.0); EOSINOPHIL 2.1 % (0-4.5); MCH 26.9 pg (25.7-33.7); MCHC 32.4 g/dl (32.0-35.9); MEAN PLT VOLUME 8.3 fl (7.5-11.1); NEUTROPHILS 72.3 % (42.8-82.8); PLATELET COUNT 224 K/MM3 (134-434); RDW 16.8 % (11.9-15.9)
[2016-11-24 08:49] LABS: THYROID STIMULATING HORMONE 0.95 uIU/ml (0.358-3.74)
[2016-11-24 08:59] LABS: ANION GAP 11 (8-16); CALCIUM 8.9 mg/dL (8.5-10.1); CO2 25 mmol/L (21-32); GLUCOSE,RANDOM 125 mg/dL (74-106); MAGNESIUM 2.2 mg/dL (1.8-2.4)
[2016-11-24 09:01] LABS: CREATININE 1.7 mg/dL (0.7-1.3); PHOSPHOROUS 2.8 mg/dL (2.5-4.9)
[2016-11-24] MEDS: TAMSULOSIN HCL 0.4 MG CAP.ER.24H (FP) PO SCH (09:45)
[2016-11-24] MEDS: ASPIRIN 81 MG CHEWABLE TABLETS PO SCH (09:45)
[2016-11-24] MEDS: HEPARIN NA (PORCINE) 5,000 UNITS/ML 1ML VIAL SQ SCH ×2 (09:45→21:42)
[2016-11-24] MEDS: PANTOPRAZOLE 20 MG TABLET (FP) PO SCH ×2 (09:45→21:41)
[2016-11-24] MEDS: GABAPENTIN 100 MG CAPSULE (FP) PO SCH ×2 (14:35→21:42)
[2016-11-24] MEDS: CYCLOBENZAPRINE HCL 10 MG TABLET (FP) PO SCH ×2 (14:35→21:42)
--- NOTE | 2016-11-24 14:45 | PN ---
Progress Note (short form) - Note Progress Note: patient seen and examined in room breathing improved and legs less swollen however c/o severe LBP actually more on left flank with no radiation to groin feels muscle pulling with every movement Vital Signs Period Temp Pulse Resp BP Sys/Whitehead Pulse Ox Last 24 Hr 97.7 F-98.5 F 50-74 18-20 105-139/60-80 97 neck supple heart reg S1/S2 Lungs grossly clear / decreased at bases abd soft obese ext + edema bilat some improvement CBC, BMP 11/24/16 06:20 11/24/16 06:20 Active Medications Acetaminophen (Tylenol -) 650 mg PO Q6H PRN PRN Reason: FEVER OR PAIN Last Admin: 11/23/16 21:50 Dose: 650 mg Aspirin (Asa -) 81 mg PO DAILY [facility] Last Admin: 11/24/16 09:45 Dose: 81 mg Atorvastatin Calcium (Lipitor -) 80 mg PO HS [facility] Last Admin: 11/23/16 21:32 Dose: 80 mg Cyclobenzaprine HCl (Flexeril -) 10 mg PO TID [facility] Last Admin: 11/24/16 14:35 Dose: 10 mg Furosemide (Lasix Injection -) 40 mg IVPUSH BID@0600,1400 [facility] Last Admin: 11/24/16 14:35 Dose: 40 mg Gabapentin (Neurontin -) 100 mg PO TID [facility] Last Admin: 11/24/16 14:35 Dose: 100 mg Heparin Sodium (Porcine) (Heparin -) 5,000 unit SQ BID [facility] Last Admin: 11/24/16 09:45 Dose: 5,000 unit Insulin Aspart (Novolog Vial Sliding Scale -) 1 vial SQ [facility] PRN Reason: Protocol Last Admin: 11/24/16 12:00 Dose: 2 units Insulin Detemir (Levemir Vial) 30 units SQ BID@07,22 [facility] Last Admin: 11/24/16 06:12 Dose: 30 units Pantoprazole Sodium (Protonix -) 20 mg PO BID [facility] Last Admin: 11/24/16 09:45 Dose: 20 mg Tamsulosin HCl (Flomax -) 0.4 mg PO DAILY@0830 [facility] Last Admin: 11/24/16 09:45 Dose: 0.4 mg CXR reviewed Problem List - Problems (1) Diabetes Code(s): E11.9 - TYPE 2 DIABETES MELLITUS WITHOUT COMPLICATIONS Qualifiers: Diabetes mellitus complication detail: with unspecified neuropathy Diabetes mellitus assisted insulin use: with termite treater use (2) Leg edema Code(s): R60.0 - LOCALIZED EDEMA (3) Acute on chronic diastolic (congestive) heart failure Code(s): I50.33 - ACUTE ON CHRONIC DIASTOLIC (CONGESTIVE) HEART FAILURE (4) HTN (hypertension) Code(s): I10 - ESSENTIAL (PRIMARY) HYPERTENSION (5) Musculoskeletal pain Code(s): M79.1 - MYALGIA (6) Spinal stenosis of lumbar region Code(s): M48.06 - SPINAL STENOSIS, LUMBAR REGION
--- NOTE | 2016-11-24 16:39 | EKG ---
Test Reason : Blood Pressure : / mmHG Vent. Rate : 082 BPM Atrial Rate : 082 BPM P-R Int : 000 ms QRS Dur : 158 ms QT Int : 426 ms P-R-T Axes : 000 -37 -05 degrees QTc Int : 497 ms SINUS RHYTHM WITH AV DISSOCIATION, ACCELERATED JUNCTIONAL RHYTHM. FREQUENT VPBs,UNIFOCAL AND SINGLE,ATTIMES IN BIGEMINY ATRIAL ABNORMALITY LEFT AXIS DEVIATION RIGHT BUNDLE BRANCH BLOCK BASE LINE ARTIFACTS ABNORMAL ECG WHEN COMPARED WITH ECG OF 23-NOV-2016 03:30, PREVIOUS ECG HAS UNDETERMINED RHYTHM, NEEDS REVIEW CLINICAL CORRELATION IS RECOMMENDED AND SUGGEST F/U TRACING Confirmed by TERRELL BERG MD ([id number]) on 11/24/2016 4:39:21 PM Referred By: Андрей ALFORD Confirmed By:TERRELL BERG MD
--- NOTE | 2016-11-24 18:32 | EKG ---
Test Reason : Blood Pressure : / mmHG Vent. Rate : 100 BPM Atrial Rate : 129 BPM P-R Int : 000 ms QRS Dur : 132 ms QT Int : 404 ms P-R-T Axes : 000 -31 -06 degrees QTc Int : 521 ms SUBOPTIMAL ECG ATRIAL RHYTHM IS UNCERTAIN FREQUENT VPBs ATTIMES SUCCCESSIVE AND SEEN IN A BYGEMINAL PATTERN LEFT AXIS DEVIATION RIGHT BUNDLE BRANCH BLOCK INFERIOR INFARCT , AGE UNDETERMINED ABNORMAL ECG WHEN COMPARED WITH ECG OF 13-OCT-2016 21:07, CURRENT UNDETERMINED RHYTHM PRECLUDES RHYTHM COMPARISON, NEEDS REVIEW REPEAT TRACING Confirmed by TERRELL BERG MD ([id number]) on 11/24/2016 6:31:52 PM Referred By: Confirmed By:TERRELL BERG MD
[2016-11-24] MEDS: ATORVASTATIN CA 80 MG TABLET (FP) PO SCH (21:42)
[2016-11-25] MEDS: ACETAMINOPHEN 325 MG TABLET (FP) PO PRN ×2 (01:45→15:57)
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
[2016-11-25] MEDS: GABAPENTIN 100 MG CAPSULE (FP) PO SCH ×3 (06:20→21:20)
[2016-11-25] MEDS: INSULIN DETEMIR 100 UNITS/ML MDV SQ SCH ×2 (06:20→21:21)
[2016-11-25] MEDS: CYCLOBENZAPRINE HCL 10 MG TABLET (FP) PO SCH ×3 (06:20→21:20)
[2016-11-25] MEDS: FUROSEMIDE 40 MG/4 ML INJECTABLE VIAL IVPUSH SCH ×2 (06:20→13:52)
[2016-11-25] MEDS: INSULIN SLIDING SCALE (NOVOLOG) 1 VIAL SQ SCH ×4 (06:21→21:21)
[2016-11-25] MEDS: TAMSULOSIN HCL 0.4 MG CAP.ER.24H (FP) PO SCH (07:59)
--- NOTE | 2016-11-25 09:48 | EKG ---
Test Reason : Blood Pressure : / mmHG Vent. Rate : 086 BPM Atrial Rate : 097 BPM P-R Int : 000 ms QRS Dur : 144 ms QT Int : 452 ms P-R-T Axes : 043 -37 011 degrees QTc Int : 540 ms SINUS RHYTHM WITH PREMATURE SUPRAVENTRICULAR COMPLEXES AND WITH FREQUENT PREMATURE VENTRICULAR COMPLEXES LEFT AXIS DEVIATION RIGHT BUNDLE BRANCH BLOCK INFERIOR INFARCT , AGE UNDETERMINED ABNORMAL ECG WHEN COMPARED WITH ECG OF 24-NOV-2016 09:12, NO SIGNIFICANT CHANGE WAS FOUND Confirmed by JESSE MARCANO MD ([id number]) on 11/25/2016 9:48:19 AM Referred By: DEANA LOPEZ Confirmed By:JESSE MARCANO MD
[2016-11-25] MEDS: ASPIRIN 81 MG CHEWABLE TABLETS PO SCH (10:22)
[2016-11-25] MEDS: PANTOPRAZOLE 20 MG TABLET (FP) PO SCH ×2 (10:22→21:20)
[2016-11-25] MEDS: HEPARIN NA (PORCINE) 5,000 UNITS/ML 1ML VIAL SQ SCH ×2 (10:22→21:20)
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
[2016-11-25] MEDS: ATORVASTATIN CA 80 MG TABLET (FP) PO SCH (21:20)
[2016-11-26] MEDS: ACETAMINOPHEN 325 MG TABLET (FP) PO PRN ×2 (01:03→13:35)
[2016-11-26] MEDS: CYCLOBENZAPRINE HCL 10 MG TABLET (FP) PO SCH ×3 (07:02→21:40)
[2016-11-26] MEDS: GABAPENTIN 100 MG CAPSULE (FP) PO SCH (07:03)
[2016-11-26] MEDS: FUROSEMIDE 40 MG/4 ML INJECTABLE VIAL IVPUSH SCH ×2 (07:04→13:35)
[2016-11-26] MEDS: INSULIN SLIDING SCALE (NOVOLOG) 1 VIAL SQ SCH ×4 (07:12→21:39)
[2016-11-26] MEDS: INSULIN DETEMIR 100 UNITS/ML MDV SQ SCH ×2 (07:12→21:41)
[2016-11-26] MEDS: TAMSULOSIN HCL 0.4 MG CAP.ER.24H (FP) PO SCH (08:29)
--- NOTE | 2016-11-26 09:16 | PN ---
Progress Note (short form) - Note Progress Note: patient seen and examined in room breathing improved and legs less swollen family at bedside family gives info of patients poor compliance with dietary intake patient voices c/o LBP / right hip pain started on Neurontin and re -asses pain management Vital Signs Period Temp Pulse Resp BP Sys/Whitehead Pulse Ox Last 24 Hr 97.7 F-98.5 F 50-74 18-20 105-139/60-80 97 neck supple heart reg S1/S2 Lungs grossly clear / decreased at bases abd soft obese ext + edema bilat some improvement CBC, BMP 11/24/16 06:20 11/24/16 06:20 Active Medications Acetaminophen (Tylenol -) 650 mg PO Q6H PRN PRN Reason: FEVER OR PAIN Last Admin: 11/23/16 21:50 Dose: 650 mg Aspirin (Asa -) 81 mg PO DAILY [facility] Last Admin: 11/24/16 09:45 Dose: 81 mg Atorvastatin Calcium (Lipitor -) 80 mg PO HS [facility] Last Admin: 11/23/16 21:32 Dose: 80 mg Cyclobenzaprine HCl (Flexeril -) 10 mg PO TID [facility] Last Admin: 11/24/16 14:35 Dose: 10 mg Furosemide (Lasix Injection -) 40 mg IVPUSH BID@0600,1400 [facility] Last Admin: 11/24/16 14:35 Dose: 40 mg Gabapentin (Neurontin -) 100 mg PO TID [facility] Last Admin: 11/24/16 14:35 Dose: 100 mg Heparin Sodium (Porcine) (Heparin -) 5,000 unit SQ BID [facility] Last Admin: 11/24/16 09:45 Dose: 5,000 unit Insulin Aspart (Novolog Vial Sliding Scale -) 1 vial SQ ACHS [facility] PRN Reason: Protocol Last Admin: 11/24/16 12:00 Dose: 2 units Insulin Detemir (Levemir Vial) 30 units SQ BID@,22 [facility] Last Admin: 11/24/16 06:12 Dose: 30 units Pantoprazole Sodium (Protonix -) 20 mg PO BID [facility] Last Admin: 11/24/16 09:45 Dose: 20 mg Tamsulosin HCl (Flomax -) 0.4 mg PO DAILY@0830 [facility] Last Admin: 11/24/16 09:45 Dose: 0.4 mg CXR reviewed Problem List - Problems (1) Leg edema Assessment/Plan: LE edema improved with lasix recommend to patient to keep legs elevated continue to monitor lytes / replace as needed Code(s): R60.0 - LOCALIZED EDEMA (2) Acute on chronic diastolic (congestive) heart failure Assessment/Plan: mild crackles on admission now resolved admits improved breathing Code(s): I50.33 - ACUTE ON CHRONIC DIASTOLIC (CONGESTIVE) HEART FAILURE (3) HTN (hypertension) Code(s): I10 - ESSENTIAL (PRIMARY) HYPERTENSION (4) Musculoskeletal pain Assessment/Plan: c/o LBP / hip pain / leg pain known to have spinal stenosis has been seen by pain management previously will adjust neurontin on daily basis cill consider consult with pain Mgmt Code(s): M79.1 - MYALGIA (5) Spinal stenosis of lumbar region Code(s): M48.06 - SPINAL STENOSIS, LUMBAR REGION (6) Diabetes Code(s): E11.9 - TYPE 2 DIABETES MELLITUS WITHOUT COMPLICATIONS Qualifiers: Diabetes mellitus complication detail: with unspecified neuropathy 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
[2016-11-26 09:56] LABS: BASOPHIL 0.6 % (0-2.0); EOSINOPHIL 2.4 % (0-4.5); MCH 26.7 pg (25.7-33.7); MCHC 32.5 g/dl (32.0-35.9); MEAN CELL VOLUME 82.2 fl (80-96); MEAN PLT VOLUME 8.6 fl (7.5-11.1); NEUTROPHILS 76.2 % (42.8-82.8); PLATELET COUNT 174 K/MM3 (134-434); RDW 17.3 % (11.9-15.9); WHITE BLOOD COUNT 7.6 K/mm3 (4.0-10.0)
[2016-11-26] MEDS: HEPARIN NA (PORCINE) 5,000 UNITS/ML 1ML VIAL SQ SCH ×2 (10:02→21:41)
[2016-11-26] MEDS: PANTOPRAZOLE 20 MG TABLET (FP) PO SCH ×2 (10:02→21:41)
[2016-11-26] MEDS: ASPIRIN 81 MG CHEWABLE TABLETS PO SCH (10:02)
[2016-11-26 10:11] LABS: ANION GAP 8 (8-16); CALCIUM 8.2 mg/dL (8.5-10.1); CO2 27 mmol/L (21-32); CREATININE 1.8 mg/dL (0.7-1.3); GLUCOSE,RANDOM 162 mg/dL (74-106); MAGNESIUM 1.9 mg/dL (1.8-2.4)
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
[2016-11-26] MEDS: GABAPENTIN 300 MG CAPSULE (FP) PO SCH ×2 (13:35→21:41)
[2016-11-26] MEDS: ATORVASTATIN CA 80 MG TABLET (FP) PO SCH (21:41)
[2016-11-27] MEDS: CYCLOBENZAPRINE HCL 10 MG TABLET (FP) PO SCH ×3 (06:56→21:13)
[2016-11-27] MEDS: GABAPENTIN 300 MG CAPSULE (FP) PO SCH ×3 (06:57→21:14)
[2016-11-27] MEDS: INSULIN DETEMIR 100 UNITS/ML MDV SQ SCH ×2 (06:57→21:17)
[2016-11-27] MEDS: FUROSEMIDE 40 MG/4 ML INJECTABLE VIAL IVPUSH SCH ×2 (06:57→13:49)
[2016-11-27] MEDS: INSULIN SLIDING SCALE (NOVOLOG) 1 VIAL SQ SCH ×4 (06:58→21:17)
[2016-11-27 08:41] LABS: BASOPHIL 0.6 % (0-2.0); EOSINOPHIL 2.7 % (0-4.5); MCH 26.9 pg (25.7-33.7); MCHC 32.9 g/dl (32.0-35.9); MEAN CELL VOLUME 81.7 fl (80-96); MEAN PLT VOLUME 8.8 fl (7.5-11.1); NEUTROPHILS 78.6 % (42.8-82.8); PLATELET COUNT 183 K/MM3 (134-434); RDW 17.5 % (11.9-15.9); WHITE BLOOD COUNT 7.5 K/mm3 (4.0-10.0)
[2016-11-27] MEDS: TAMSULOSIN HCL 0.4 MG CAP.ER.24H (FP) PO SCH (08:50)
[2016-11-27 09:10] LABS: ANION GAP 7 (8-16); CALCIUM 8.9 mg/dL (8.5-10.1); CO2 31 mmol/L (21-32); CREATININE 1.6 mg/dL (0.7-1.3); GLUCOSE,RANDOM 115 mg/dL (74-106); MAGNESIUM 2.2 mg/dL (1.8-2.4)
[2016-11-27] MEDS: HEPARIN NA (PORCINE) 5,000 UNITS/ML 1ML VIAL SQ SCH ×2 (10:00→21:14)
[2016-11-27] MEDS: PANTOPRAZOLE 20 MG TABLET (FP) PO SCH ×2 (10:01→21:14)
[2016-11-27] MEDS: ASPIRIN 81 MG CHEWABLE TABLETS PO SCH (10:01)
[2016-11-27] MEDS: ACETAMINOPHEN 325 MG TABLET (FP) PO PRN (10:10)
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
[2016-11-27] MEDS ORDERED: INSULIN (NOVOLOG) ASPART 100 UNITS/ML 10ML VIAL ONE (12:07)
[2016-11-27] MEDS: ATORVASTATIN CA 80 MG TABLET (FP) PO SCH (21:13)
--- NOTE | 2016-11-27 21:36 | PN ---
Progress Note (short form) - Note Progress Note: patient seen andexamined laying in bed NAD breathing improved reports back pain only slightly better with current medications Vital Signs Period Temp Pulse Resp BP Sys/Whitehead Pulse Ox Last 24 Hr 97.3 F-98.7 F 50-81 20-20 115-140/52-80 97 neck supple heart S1/S2 lungs clear bilat abd soft non tender ext decreased edema - no calf tenderness CBC, BMP 11/27/16 07:05 11/27/16 07:05 Active Medications Acetaminophen (Tylenol -) 650 mg PO Q6H PRN PRN Reason: FEVER OR PAIN Last Admin: 11/27/16 10:10 Dose: 650 mg Acetaminophen/Codeine Phosphate (Tylenol # 3 -) 1 tab PO BID PRN Aspirin (Asa -) 81 mg PO DAILY [facility] Last Admin: 11/27/16 10:01 Dose: 81 mg Atorvastatin Calcium (Lipitor -) 80 mg PO HS [facility] Last Admin: 11/27/16 21:13 Dose: 80 mg Cyclobenzaprine HCl (Flexeril -) 10 mg PO TID [facility] Last Admin: 11/27/16 21:13 Dose: 10 mg Furosemide (Lasix Injection -) 40 mg IVPUSH BID@0600,1400 [facility] Last Admin: 11/27/16 13:49 Dose: 40 mg Gabapentin (Neurontin -) 300 mg PO TID [facility] Last Admin: 11/27/16 21:14 Dose: 300 mg Heparin Sodium (Porcine) (Heparin -) 5,000 unit SQ BID [facility] Last Admin: 11/27/16 21:14 Dose: 5,000 unit Insulin Aspart (Novolog Vial Sliding Scale -) 1 vial SQ ACHS [facility] PRN Reason: Protocol Last Admin: 11/27/16 21:17 Dose: 2 units Insulin Detemir (Levemir Vial) 30 units SQ BID@07,22 [facility] Last Admin: 11/27/16 21:17 Dose: 30 units Pantoprazole Sodium (Protonix -) 20 mg PO BID [facility] Last Admin: 11/27/16 21:14 Dose: 20 mg Tamsulosin HCl (Flomax -) 0.4 mg PO DAILY@0830 [facility] Last Admin: 11/27/16 08:50 Dose: 0.4 mg Problem List - Problems (1) Leg edema Assessment/Plan: LE edema improved with lasix recommend to patient to keep legs elevated continue to monitor lytes / replace as needed Code(s): R60.0 - LOCALIZED EDEMA (2) Acute on chronic diastolic (congestive) heart failure Assessment/Plan: mild crackles on admission now resolved admits improved breathing Code(s): I50.33 - ACUTE ON CHRONIC DIASTOLIC (CONGESTIVE) HEART FAILURE (3) HTN (hypertension) Assessment/Plan: Bp has remained stable will start manohar -- re challange Code(s): I10 - ESSENTIAL (PRIMARY) HYPERTENSION (4) Musculoskeletal pain Assessment/Plan: c/o LBP / hip pain / leg pain known to have spinal stenosis has been seen by pain management previously will adjust neurontin on daily basis consult with pain Mgmt Code(s): M79.1 - MYALGIA (5) Spinal stenosis of lumbar region Code(s): M48.06 - SPINAL STENOSIS, LUMBAR REGION (6) Diabetes Code(s): E11.9 - TYPE 2 DIABETES MELLITUS WITHOUT COMPLICATIONS Qualifiers: Diabetes mellitus complication detail: with unspecified neuropathy Diabetes mellitus intermediate insulin use: with technician terminal and repeater use
--- NOTE | 2016-11-27 21:45 | PN ---
Progress Note (short form) - Note Progress Note: patient in bed although comfortable c/o severe pain upon moving and getting up on questioning admits new medication is helping ( neurontin) respiratory status improved Vital Signs Period Temp Pulse Resp BP Sys/Whitehead Pulse Ox Last 24 Hr 97.3 F-98.7 F 50-81 20-20 115-140/52-80 97 neck supple heart reg S1/S2 lungs clear bilat abd soft no tenderness ext minimal edema no calf tenderness / leg raises ++ painful CBC, BMP 11/27/16 07:05 11/27/16 07:05 Active Medications Acetaminophen (Tylenol -) 650 mg PO Q6H PRN PRN Reason: FEVER OR PAIN Last Admin: 11/27/16 10:10 Dose: 650 mg Acetaminophen/Codeine Phosphate (Tylenol # 3 -) 1 tab PO BID PRN Aspirin (Asa -) 81 mg PO DAILY [facility] Last Admin: 11/27/16 10:01 Dose: 81 mg Atorvastatin Calcium (Lipitor -) 80 mg PO HS [facility] Last Admin: 11/27/16 21:13 Dose: 80 mg Cyclobenzaprine HCl (Flexeril -) 10 mg PO TID [facility] Last Admin: 11/27/16 21:13 Dose: 10 mg Furosemide (Lasix Injection -) 40 mg IVPUSH BID@0600,1400 [facility] Last Admin: 11/27/16 13:49 Dose: 40 mg Gabapentin (Neurontin -) 300 mg PO TID [facility] Last Admin: 11/27/16 21:14 Dose: 300 mg Heparin Sodium (Porcine) (Heparin -) 5,000 unit SQ BID [facility] Last Admin: 11/27/16 21:14 Dose: 5,000 unit Insulin Aspart (Novolog Vial Sliding Scale -) 1 vial SQ ACHS [facility] PRN Reason: Protocol Last Admin: 11/27/16 21:17 Dose: 2 units Insulin Detemir (Levemir Vial) 30 units SQ BID@, [facility] Last Admin: 11/27/16 21:17 Dose: 30 units Pantoprazole Sodium (Protonix -) 20 mg PO BID [facility] Last Admin: 11/27/16 21:14 Dose: 20 mg Tamsulosin HCl (Flomax -) 0.4 mg PO DAILY@0830 [facility] Last Admin: 11/27/16 08:50 Dose: 0.4 mg Problem List - Problems (1) Leg edema Assessment/Plan: LE edema improved with lasix recommend to patient to keep legs elevated continue to monitor lytes / replace as needed Code(s): R60.0 - LOCALIZED EDEMA (2) Acute on chronic diastolic (congestive) heart failure Assessment/Plan: mild crackles on admission now resolved admits improved breathing Code(s): I50.33 - ACUTE ON CHRONIC DIASTOLIC (CONGESTIVE) HEART FAILURE (3) HTN (hypertension) Assessment/Plan: Bp has remained stable will start manohar -- re challange Code(s): I10 - ESSENTIAL (PRIMARY) HYPERTENSION (4) Musculoskeletal pain Code(s): M79.1 - MYALGIA (5) Spinal stenosis of lumbar region Code(s): M48.06 - SPINAL STENOSIS, LUMBAR REGION (6) Diabetes Code(s): E11.9 - TYPE 2 DIABETES MELLITUS WITHOUT COMPLICATIONS Qualifiers: Diabetes mellitus complication detail: with unspecified neuropathy Diabetes mellitus rodent exterminator insulin use: with fpc use
[2016-11-28] MEDS: INSULIN DETEMIR 100 UNITS/ML MDV SQ SCH ×2 (06:34→21:36)
[2016-11-28] MEDS: FUROSEMIDE 40 MG/4 ML INJECTABLE VIAL IVPUSH SCH ×2 (06:34→13:30)
[2016-11-28] MEDS: GABAPENTIN 300 MG CAPSULE (FP) PO SCH ×3 (06:34→21:34)
[2016-11-28] MEDS: CYCLOBENZAPRINE HCL 10 MG TABLET (FP) PO SCH ×3 (06:34→21:33)
[2016-11-28] MEDS: INSULIN SLIDING SCALE (NOVOLOG) 1 VIAL SQ SCH ×4 (06:35→21:35)
[2016-11-28] MEDS ORDERED: PT OWN MED DRAWER 7, Y5N ONE (07:02)
[2016-11-28 07:53] LABS: MCH 27.1 pg (25.7-33.7); MCHC 32.9 g/dl (32.0-35.9); MEAN CELL VOLUME 82.4 fl (80-96); MEAN PLT VOLUME 8.4 fl (7.5-11.1); PLATELET COUNT 194 K/MM3 (134-434); WHITE BLOOD COUNT 7.9 K/mm3 (4.0-10.0)
[2016-11-28] MEDS: TAMSULOSIN HCL 0.4 MG CAP.ER.24H (FP) PO SCH (08:05)
[2016-11-28 08:28] LABS: ANION GAP 5 (8-16); CALCIUM 9.1 mg/dL (8.5-10.1); CO2 29 mmol/L (21-32); CREATININE 1.6 mg/dL (0.7-1.3); GLUCOSE,RANDOM 150 mg/dL (74-106)
[2016-11-28] MEDS: HEPARIN NA (PORCINE) 5,000 UNITS/ML 1ML VIAL SQ SCH ×2 (09:39→21:34)
[2016-11-28] MEDS: PANTOPRAZOLE 20 MG TABLET (FP) PO SCH ×2 (09:39→21:34)
[2016-11-28] MEDS: ACETAMINOPHEN WITH CODEINE 300MG/30MG TABLET PO PRN ×2 (09:39→21:33)
[2016-11-28] MEDS: ASPIRIN 81 MG CHEWABLE TABLETS PO SCH (09:40)
[2016-11-28] MEDS: LISINOPRIL 5 MG TABLET (FP) PO SCH (09:40)
--- NOTE | 2016-11-28 11:26 | EKG ---
Test Reason : Blood Pressure : / mmHG Vent. 

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
--- NOTE | 2016-11-28 15:30 | HOL ---
Hook-up date: 2016-11-25 09:42:00 Duration: 24:00:00 Test Indications: Medications: 526299 QRS complexes 1368 Ventricular ectopics which represent 1 % of total QRS comp. 506 Supraventricular ectopics which represent <1 % of total QRS comp. * Paced QRS complexs which represent % of total QRS comp. * % of Time Classified as Noise VENTRICULAR ECTOPY 1288 Isolated 0 Bigeminal Cycles 29 Couplets 2 Runs 22 Beats in Runs 19 Beats LONGEST at 171 BPM at 16:32:23 2016-11-25 19 Beats FASTEST at 171 BPM at 16:32:23 2016-11-25 SUPRAVENTRICULAR ECTOPY 506 Isolated 0 Couplets 0 Runs 0 Beats in Runs * Beats LONGEST at * BPM at :: -- * Beats FASTEST at * BPM at :: -- HEART RATES 48 MIN at 18:56:16 2016-11-25 72 AVG 98 MAX at 08:33:50 2016-11-26 LONGEST RR 1.888 secs at 14:44:45 2016-11-25 SCANNED BY TERRIE MCKEE ON 11/28/16 1. Baseline sinus rhythm with avg hr 72 and range 48-98. 2. No significant bradycardia or pauses. 3. Occasional Mobitz I second degree avb with 2:1 av block. 4. Frequent isolated PVCS and PACS. 5. Two episodes of NSVT, 19 beats and 3 beats. 6. No VF, afib, aflutter, svt. 7. No diary submitted. Confirmed by [facility] LARSON, KASANDRA (2014) on 11/28/2016 3:29:38 PM Referred By: Overread By: KASANDRA SANZ MD
[2016-11-28] MEDS: ATORVASTATIN CA 80 MG TABLET (FP) PO SCH (21:34)
--- NOTE | 2016-11-28 22:17 | PN ---
Progress Note (short form) - Note Progress Note: patient in bed although comfortable c/o severe pain upon moving and getting up on questioning admits new medication is helping ( neurontin) respiratory status improved / lower ext edema almost resolved Vital Signs Period Temp Pulse Resp BP Sys/Whitehead Pulse Ox Last 24 Hr 97.3 F-98.7 F 50-81 20-20 115-140/52-80 97 neck supple heart reg S1/S2 lungs clear bilat abd soft no tenderness ext minimal edema no calf tenderness / leg raises ++ painful CBC, BMP 11/27/16 07:05 11/27/16 07:05 CBC, BMP 11/28/16 06:00 11/28/16 06:00 Active Medications Acetaminophen (Tylenol -) 650 mg PO Q6H PRN PRN Reason: FEVER OR PAIN Last Admin: 11/27/16 10:10 Dose: 650 mg Acetaminophen/Codeine Phosphate (Tylenol # 3 -) 1 tab PO BID PRN Aspirin (Asa -) 81 mg PO DAILY [facility] Last Admin: 11/27/16 10:01 Dose: 81 mg Atorvastatin Calcium (Lipitor -) 80 mg PO HS [facility] Last Admin: 11/27/16 21:13 Dose: 80 mg Cyclobenzaprine HCl (Flexeril -) 10 mg PO TID [facility] Last Admin: 11/27/16 21:13 Dose: 10 mg Furosemide (Lasix Injection -) 40 mg IVPUSH BID@0600,1400 [facility] Last Admin: 11/27/16 13:49 Dose: 40 mg Gabapentin (Neurontin -) 300 mg PO TID [facility] Last Admin: 11/27/16 21:14 Dose: 300 mg Heparin Sodium (Porcine) (Heparin -) 5,000 unit SQ BID [facility] Last Admin: 11/27/16 21:14 Dose: 5,000 unit Insulin Aspart (Novolog Vial Sliding Scale -) 1 vial SQ ACHS [facility] PRN Reason: Protocol Last Admin: 11/27/16 21:17 Dose: 2 units Insulin Detemir (Levemir Vial) 30 units SQ BID@,22 [facility] Last Admin: 11/27/16 21:17 Dose: 30 units Pantoprazole Sodium (Protonix -) 20 mg PO BID [facility] Last Admin: 11/27/16 21:14 Dose: 20 mg Tamsulosin HCl (Flomax -) 0.4 mg PO DAILY@0830 [facility] Last Admin: 11/27/16 08:50 Dose: 0.4 mg Problem List - Problems (1) Leg edema Assessment/Plan: LE edema improved with lasix recommend to patient to keep legs elevated continue to monitor lytes / replace as needed Code(s): R60.0 - LOCALIZED EDEMA (2) Acute on chronic diastolic (congestive) heart failure Assessment/Plan: mild crackles on admission now resolved admits improved breathing appreciate cardiology follow up Code(s): I50.33 - ACUTE ON CHRONIC DIASTOLIC (CONGESTIVE) HEART FAILURE (3) HTN (hypertension) Assessment/Plan: Bp has remained stable will start manohar -- re challange will follow Cr/ K Code(s): I10 - ESSENTIAL (PRIMARY) HYPERTENSION (4) Musculoskeletal pain Code(s): M79.1 - MYALGIA (5) Spinal stenosis of lumbar region Code(s): M48.06 - SPINAL STENOSIS, LUMBAR REGION (6) Diabetes Code(s): E11.9 - TYPE 2 DIABETES MELLITUS WITHOUT COMPLICATIONS Qualifiers: Diabetes mellitus complication detail: with unspecified neuropathy Diabetes mellitus senior care insulin use: with manager terminal use
[2016-11-29] MEDS: GABAPENTIN 300 MG CAPSULE (FP) PO SCH ×3 (05:41→21:32)
[2016-11-29] MEDS: FUROSEMIDE 40 MG/4 ML INJECTABLE VIAL IVPUSH SCH ×2 (05:41→14:27)
[2016-11-29] MEDS: CYCLOBENZAPRINE HCL 10 MG TABLET (FP) PO SCH ×3 (05:41→21:32)
[2016-11-29] MEDS ORDERED: INSULIN (NOVOLOG) ASPART 100 UNITS/ML 10ML VIAL ONE (06:09)
[2016-11-29] MEDS: INSULIN DETEMIR 100 UNITS/ML MDV SQ SCH ×2 (06:27→21:28)
[2016-11-29] MEDS: INSULIN SLIDING SCALE (NOVOLOG) 1 VIAL SQ SCH ×4 (06:28→21:33)
[2016-11-29] MEDS: TAMSULOSIN HCL 0.4 MG CAP.ER.24H (FP) PO SCH (08:04)
[2016-11-29] MEDS: ASPIRIN 81 MG CHEWABLE TABLETS PO SCH (10:00)
[2016-11-29] MEDS: PANTOPRAZOLE 20 MG TABLET (FP) PO SCH ×2 (10:00→21:32)
[2016-11-29] MEDS: LISINOPRIL 5 MG TABLET (FP) PO SCH (10:00)
[2016-11-29] MEDS: HEPARIN NA (PORCINE) 5,000 UNITS/ML 1ML VIAL SQ SCH ×2 (10:00→21:32)
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
[2016-11-29] MEDS: ATORVASTATIN CA 80 MG TABLET (FP) PO SCH (21:32)
[2016-11-29] MEDS: ACETAMINOPHEN WITH CODEINE 300MG/30MG TABLET PO PRN (21:32)
--- NOTE | 2016-11-29 23:15 | PN ---
Progress Note (short form) - Note Progress Note: patient in bed although comfortable c/o severe pain upon moving and getting up on questioning admits new medication is helping ( neurontin) respiratory status improved / lower ext edema almost resolved case discussed with family who report patient always complaining of pain 'get out of bed and sits in chair all day long' has not been able to ambulate or do ADL independently poor compliance with diet Vital Signs Period Temp Pulse Resp BP Sys/Whitehead Pulse Ox Last 24 Hr 97.3 F-98.7 F 50-81 20-20 115-140/52-80 97 neck supple heart reg S1/S2 lungs clear bilat abd soft no tenderness ext minimal edema no calf tenderness / leg raises ++ painful CBC, [facility] 11/27/16 07:05 11/27/16 07:05 CBC, [facility] 11/28/16 06:00 11/28/16 06:00 Active Medications Acetaminophen (Tylenol -) 650 mg PO Q6H PRN PRN Reason: FEVER OR PAIN Last Admin: 11/27/16 10:10 Dose: 650 mg Acetaminophen/Codeine Phosphate (Tylenol # 3 -) 1 tab PO BID PRN Aspirin (Asa -) 81 mg PO DAILY [facility] Last Admin: 11/27/16 10:01 Dose: 81 mg Atorvastatin Calcium (Lipitor -) 80 mg PO HS [facility] Last Admin: 11/27/16 21:13 Dose: 80 mg Cyclobenzaprine HCl (Flexeril -) 10 mg PO TID [facility] Last Admin: 11/27/16 21:13 Dose: 10 mg Furosemide (Lasix Injection -) 40 mg IVPUSH BID@0600,1400 [facility] Last Admin: 11/27/16 13:49 Dose: 40 mg Gabapentin (Neurontin -) 300 mg PO TID [facility] Last Admin: 11/27/16 21:14 Dose: 300 mg Heparin Sodium (Porcine) (Heparin -) 5,000 unit SQ BID [facility] Last Admin: 11/27/16 21:14 Dose: 5,000 unit Insulin Aspart (Novolog Vial Sliding Scale -) 1 vial SQ ACHS [facility] PRN Reason: Protocol Last Admin: 11/27/16 21:17 Dose: 2 units Insulin Detemir (Levemir Vial) 30 units SQ BID@07,22 [facility] Last Admin: 11/27/16 21:17 Dose: 30 units Pantoprazole Sodium (Protonix -) 20 mg PO BID [facility] Last Admin: 11/27/16 21:14 Dose: 20 mg Tamsulosin HCl (Flomax -) 0.4 mg PO DAILY@0830 [facility] Last Admin: 11/27/16 08:50 Dose: 0.4 mg Problem List - Problems (1) Leg edema Assessment/Plan: LE edema improved with lasix recommend to patient to keep legs elevated continue to monitor lytes / replace as needed Code(s): R60.0 - LOCALIZED EDEMA (2) Acute on chronic diastolic (congestive) heart failure Assessment/Plan: mild crackles on admission now resolved admits improved breathing appreciate cardiology follow up Code(s): I50.33 - ACUTE ON CHRONIC DIASTOLIC (CONGESTIVE) HEART FAILURE (3) HTN (hypertension) Assessment/Plan: Bp has remained stable will start manohar -- re challange will follow Cr/ K tolerating well --better BP control Code(s): I10 - ESSENTIAL (PRIMARY) HYPERTENSION (4) Musculoskeletal pain Assessment/Plan: c/o LBP / hip pain / leg pain known to have spinal stenosis has been seen by pain management previously will adjust neurontin on daily basis consult with pain Mgmt physical theray evaluarion discussed with family STR for reconditioning Code(s): M79.1 - MYALGIA (5) Spinal stenosis of lumbar region Code(s): M48.06 - SPINAL STENOSIS, LUMBAR REGION (6) Diabetes Assessment/Plan: poor diet control education for family and patient regarding diet Code(s): E11.9 - TYPE 2 DIABETES MELLITUS WITHOUT COMPLICATIONS Qualifiers: Diabetes mellitus complication detail: with unspecified neuropathy Diabetes mellitus longterm insulin use: 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
[2016-11-30] MEDS: INSULIN DETEMIR 100 UNITS/ML MDV SQ SCH ×2 (06:32→21:28)
[2016-11-30] MEDS: FUROSEMIDE 40 MG/4 ML INJECTABLE VIAL IVPUSH SCH ×2 (06:33→14:52)
[2016-11-30] MEDS: CYCLOBENZAPRINE HCL 10 MG TABLET (FP) PO SCH ×3 (06:33→21:28)
[2016-11-30] MEDS: GABAPENTIN 300 MG CAPSULE (FP) PO SCH ×3 (06:33→21:27)
[2016-11-30] MEDS: INSULIN SLIDING SCALE (NOVOLOG) 1 VIAL SQ SCH ×4 (06:35→21:29)
[2016-11-30 07:46] LABS: BASOPHIL 0.7 % (0-2.0); EOSINOPHIL 2.7 % (0-4.5); MCH 26.9 pg (25.7-33.7); MCHC 32.6 g/dl (32.0-35.9); MEAN CELL VOLUME 82.4 fl (80-96); MEAN PLT VOLUME 8.8 fl (7.5-11.1); PLATELET COUNT 199 K/MM3 (134-434); RDW 17.6 % (11.9-15.9); WHITE BLOOD COUNT 6.5 K/mm3 (4.0-10.0)
[2016-11-30] MEDS: TAMSULOSIN HCL 0.4 MG CAP.ER.24H (FP) PO SCH (07:47)
[2016-11-30 08:14] LABS: ANION GAP 7 (8-16); CALCIUM 8.7 mg/dL (8.5-10.1); CO2 28 mmol/L (21-32); CREATININE 2.2 mg/dL (0.7-1.3); GLUCOSE,RANDOM 120 mg/dL (74-106)
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
[2016-11-30] MEDS: ASPIRIN 81 MG CHEWABLE TABLETS PO SCH (09:53)
[2016-11-30] MEDS: HEPARIN NA (PORCINE) 5,000 UNITS/ML 1ML VIAL SQ SCH ×2 (09:53→21:28)
[2016-11-30] MEDS: PANTOPRAZOLE 20 MG TABLET (FP) PO SCH ×2 (09:53→21:28)
[2016-11-30] MEDS: LISINOPRIL 5 MG TABLET (FP) PO SCH (09:53)
[2016-11-30 10:04] LABS: ERYTHROCYTE SEDIMENTATION RATE 68 mm/hr (0-20)
[2016-11-30] MEDS: ATORVASTATIN CA 80 MG TABLET (FP) PO SCH (21:28)
[2016-11-30] MEDS: ACETAMINOPHEN 325 MG TABLET (FP) PO PRN (21:32)
--- NOTE | 2016-11-30 23:39 | PN ---
Progress Note (short form) - Note Progress Note: patient in bed although comfortable c/o severe pain upon moving and getting up case discussed with family who report patient always complaining of pain 'get out of bed and sits in chair all day long' has not been able to ambulate or do ADL independently poor compliance with diet Vital Signs Period Temp Pulse Resp BP Sys/Whitehead Pulse Ox Last 24 Hr 97.3 F-98.7 F 50-81 20-20 115-140/52-80 97 neck supple heart reg S1/S2 lungs clear bilat abd soft no tenderness ext minimal edema no calf tenderness / leg raises ++ painful CBC, [facility] 11/27/16 07:05 11/27/16 07:05 CBC, [facility] 11/28/16 06:00 11/28/16 06:00 CBC, [facility] 11/30/16 07:31 11/30/16 07:31 renal function elevated will hold lasix Active Medications Acetaminophen (Tylenol -) 650 mg PO Q6H PRN PRN Reason: FEVER OR PAIN Last Admin: 11/27/16 10:10 Dose: 650 mg Acetaminophen/Codeine Phosphate (Tylenol # 3 -) 1 tab PO BID PRN Aspirin (Asa -) 81 mg PO DAILY [facility] Last Admin: 11/27/16 10:01 Dose: 81 mg Atorvastatin Calcium (Lipitor -) 80 mg PO HS [facility] Last Admin: 11/27/16 21:13 Dose: 80 mg Cyclobenzaprine HCl (Flexeril -) 10 mg PO TID [facility] Last Admin: 11/27/16 21:13 Dose: 10 mg Furosemide (Lasix Injection -) 40 mg IVPUSH BID@0600,1400 [facility] Last Admin: 11/27/16 13:49 Dose: 40 mg Gabapentin (Neurontin -) 300 mg PO TID [facility] hold lasix Last Admin: 11/27/16 21:14 Dose: 300 mg Heparin Sodium (Porcine) (Heparin -) 5,000 unit SQ BID [facility] Last Admin: 11/27/16 21:14 Dose: 5,000 unit Insulin Aspart (Novolog Vial Sliding Scale -) 1 vial SQ ACHS [facility] PRN Reason: Protocol Last Admin: 11/27/16 21:17 Dose: 2 units Insulin Detemir (Levemir Vial) 30 units SQ BID@07,22 [facility] Last Admin: 11/27/16 21:17 Dose: 30 units Pantoprazole Sodium (Protonix -) 20 mg PO BID [facility] Last Admin: 11/27/16 21:14 Dose: 20 mg Tamsulosin HCl (Flomax -) 0.4 mg PO DAILY@0830 [facility] Last Admin: 11/27/16 08:50 Dose: 0.4 mg Problem List - Problems (1) Leg edema Assessment/Plan: LE edema improved with lasix now elevated BUN /Cr will hold lasix recommend to patient to keep legs elevated continue to monitor lytes / replace as needed Code(s): R60.0 - LOCALIZED EDEMA (2) Acute on chronic diastolic (congestive) heart failure Assessment/Plan: mild crackles on admission now resolved admits improved breathing appreciate cardiology follow up Code(s): I50.33 - ACUTE ON CHRONIC DIASTOLIC (CONGESTIVE) HEART FAILURE (3) HTN (hypertension) Code(s): I10 - ESSENTIAL (PRIMARY) HYPERTENSION (4) Musculoskeletal pain Assessment/Plan: c/o LBP / hip pain / leg pain known to have spinal stenosis has been seen by pain management previously will adjust neurontin on daily basis consult with pain Mgmt physical theray evaluarion discussed with family STR for reconditioning Code(s): M79.1 - MYALGIA (5) Spinal stenosis of lumbar region Code(s): M48.06 - SPINAL STENOSIS, LUMBAR REGION (6) Diabetes Code(s): E11.9 - TYPE 2 DIABETES MELLITUS WITHOUT COMPLICATIONS
[2016-12-01] MEDS: INSULIN SLIDING SCALE (NOVOLOG) 1 VIAL SQ SCH ×4 (06:30→22:17)
[2016-12-01] MEDS: ACETAMINOPHEN 325 MG TABLET (FP) PO PRN ×2 (06:34→22:14)
[2016-12-01] MEDS: CYCLOBENZAPRINE HCL 10 MG TABLET (FP) PO SCH ×3 (06:35→22:14)
[2016-12-01] MEDS: GABAPENTIN 300 MG CAPSULE (FP) PO SCH ×3 (06:35→22:14)
[2016-12-01] MEDS: INSULIN DETEMIR 100 UNITS/ML MDV SQ SCH ×2 (06:35→22:14)
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
[2016-12-01] MEDS: TAMSULOSIN HCL 0.4 MG CAP.ER.24H (FP) PO SCH (10:19)
[2016-12-01] MEDS: PANTOPRAZOLE 20 MG TABLET (FP) PO SCH ×2 (10:19→22:14)
[2016-12-01] MEDS: ASPIRIN 81 MG CHEWABLE TABLETS PO SCH (10:19)
[2016-12-01] MEDS: LISINOPRIL 5 MG TABLET (FP) PO SCH (10:19)
--- NOTE | 2016-12-01 21:20 | PN ---
Progress Note (short form) - Note Progress Note: patient in bed breathing improved and edema resolved discussed with patient plans to refer to STR he is agreeable Las week case discussed with family who report patient always complaining of pain 'get out of bed and sits in chair all day long' has not been able to ambulate or do ADL independently poor compliance with diet Vital Signs Period Temp Pulse Resp BP Sys/Whitehead Pulse Ox Last 24 Hr 97.3 F-98.7 F 50-81 20-20 115-140/52-80 97 neck supple heart reg S1/S2 lungs clear bilat abd soft no tenderness ext no edema no calf tenderness / leg raises ++ painful CBC, [facility] 11/27/16 07:05 11/27/16 07:05 CBC, [facility] 11/28/16 06:00 11/28/16 06:00 CBC, [facility] 11/30/16 07:31 11/30/16 07:31 renal function elevated lasix on hold Active Medications Acetaminophen (Tylenol -) 650 mg PO Q6H PRN PRN Reason: FEVER OR PAIN Last Admin: 11/27/16 10:10 Dose: 650 mg Acetaminophen/Codeine Phosphate (Tylenol # 3 -) 1 tab PO BID PRN Aspirin (Asa -) 81 mg PO DAILY [facility] Last Admin: 11/27/16 10:01 Dose: 81 mg Atorvastatin Calcium (Lipitor -) 80 mg PO HS [facility] Last Admin: 11/27/16 21:13 Dose: 80 mg Cyclobenzaprine HCl (Flexeril -) 10 mg PO TID [facility] Last Admin: 11/27/16 21:13 Dose: 10 mg Furosemide (Lasix Injection -) 40 mg IVPUSH BID@0600,1400 [facility] Last Admin: 11/27/16 13:49 Dose: 40 mg Gabapentin (Neurontin -) 300 mg PO TID [facility] hold lasix Last Admin: 11/27/16 21:14 Dose: 300 mg Heparin Sodium (Porcine) (Heparin -) 5,000 unit SQ BID [facility] Last Admin: 11/27/16 21:14 Dose: 5,000 unit Insulin Aspart (Novolog Vial Sliding Scale -) 1 vial SQ ACHS [facility] PRN Reason: Protocol Last Admin: 11/27/16 21:17 Dose: 2 units Insulin Detemir (Levemir Vial) 30 units SQ BID@ [facility] Last Admin: 11/27/16 21:17 Dose: 30 units Pantoprazole Sodium (Protonix -) 20 mg PO BID [facility] Last Admin: 11/27/16 21:14 Dose: 20 mg Tamsulosin HCl (Flomax -) 0.4 mg PO DAILY@0830 [facility] Last Admin: 11/27/16 08:50 Dose: 0.4 mg Problem List - Problems (1) Leg edema Code(s): R60.0 - LOCALIZED EDEMA (2) Acute on chronic diastolic (congestive) heart failure Code(s): I50.33 - ACUTE ON CHRONIC DIASTOLIC (CONGESTIVE) HEART FAILURE (3) HTN (hypertension) Code(s): I10 - ESSENTIAL (PRIMARY) HYPERTENSION (4) Musculoskeletal pain Code(s): M79.1 - MYALGIA (5) Spinal stenosis of lumbar region Code(s): M48.06 - SPINAL STENOSIS, LUMBAR REGION (6) Diabetes Code(s): E11.9 - TYPE 2 DIABETES MELLITUS WITHOUT COMPLICATIONS
[2016-12-01] MEDS: ATORVASTATIN CA 80 MG TABLET (FP) PO SCH (22:14)
[2016-12-02] MEDS ORDERED: INSULIN (NOVOLOG) ASPART 100 UNITS/ML 10ML VIAL ONE ×2 (06:03→12:05)
[2016-12-02] MEDS: GABAPENTIN 300 MG CAPSULE (FP) PO SCH ×2 (06:04→14:56)
[2016-12-02] MEDS: CYCLOBENZAPRINE HCL 10 MG TABLET (FP) PO SCH ×2 (06:04→14:57)
[2016-12-02] MEDS: INSULIN DETEMIR 100 UNITS/ML MDV SQ SCH (06:29)
[2016-12-02] MEDS: INSULIN SLIDING SCALE (NOVOLOG) 1 VIAL SQ SCH ×3 (06:30→17:40)
[2016-12-02 07:59] LABS: BASOPHIL 0.6 % (0-2.0); EOSINOPHIL 3.3 % (0-4.5); MCHC 32.6 g/dl (32.0-35.9); MEAN CELL VOLUME 82.7 fl (80-96); MEAN PLT VOLUME 8.8 fl (7.5-11.1); NEUTROPHILS 76.3 % (42.8-82.8); PLATELET COUNT 219 K/MM3 (134-434); RDW 17.7 % (11.9-15.9); WHITE BLOOD COUNT 6.3 K/mm3 (4.0-10.0)
[2016-12-02 08:42] LABS: ANION GAP 5 (8-16); CALCIUM 8.7 mg/dL (8.5-10.1); CO2 28 mmol/L (21-32); CREATININE 1.9 mg/dL (0.7-1.3); GLUCOSE,RANDOM 164 mg/dL (74-106); MAGNESIUM 2.3 mg/dL (1.8-2.4)
[2016-12-02 08:44] VITALS: BP 115/55; PULSE 62; TEMP 98
[2016-12-02] MEDS: TAMSULOSIN HCL 0.4 MG CAP.ER.24H (FP) PO SCH (09:00)
[2016-12-02] MEDS: LISINOPRIL 5 MG TABLET (FP) PO SCH (10:00)
[2016-12-02] MEDS: ASPIRIN 81 MG CHEWABLE TABLETS PO SCH (10:00)
[2016-12-02] MEDS: PANTOPRAZOLE 20 MG TABLET (FP) PO SCH (10:00)
--- NOTE | 2016-12-02 10:02 | DS ---
Physical Examination Vital Signs: Vital Signs Temperature 98.0 F 12/02/16 08:43 Pulse Rate 62 12/02/16 08:43 Respiratory Rate 18 12/02/16 08:43 Blood Pressure 115/55 12/02/16 08:43 O2 Sat by Pulse Oximetry (%) 98 12/01/16 21:00 Findings/Remarks: The patient is a 76 year old male with a significant past medical history of HTN , [place] x 2, cardiac stents (2012), CABG , COPD, diabetes, GERD, and HLD who presents to the ED with complaints of bilateral leg edema for 2 days. The patient reports a gradual onset of bilateral edema below the knees to his feet. He reports painful white bumps bilaterally on his lower extremities that is also itchy. Patient also reports lower back pain which is chronic but has gotten worse for 2 days, agrees it was at the same time as the presentation of edema. Known to have spinal stenosis. Denies fevers or chills. Denies chest pain or shortness of breath. Denies abdominal pain, nausea, vomiting, or diarrhea. Denies changes in urinary output. Denies changes in appetite. Denies any other symptoms. During hospital stay treated with lasix with good response -- resolution of Edema and improvement of respiratory status, he has persistent c/o of back pain and inability to "move around" due to severe pain. I was able to talk to daughter who reports patient does minimal physical activity at home and is always c/o of pain-- they are in agreement to do STR. Day of d/c patient states pain is practically resolved and prefers to go home... / Will have PT evaluation should patient benefit from STR will arrange for transfer to [facility] for continuity of care. Constitutional: Yes: Well Nourished, No Distress Eyes: Yes: WNL, Conjunctiva Clear HENT: Yes: WNL, Atraumatic, Normocephalic Neck: Yes: WNL, Supple, Trachea Midline Cardiovascular: Yes: WNL, Regular Rate and Rhythm Respiratory: Yes: CTA Bilaterally Gastrointestinal: Yes: WNL, Normal Bowel Sounds, Soft Renal/: Yes: WNL Breast(s): Yes: WNL Musculoskeletal: Yes: WNL Extremities: Yes: WNL Edema: No Peripheral Pulses WNL: Yes Integumentary: Yes: WNL Neurological: Yes: Alert, Oriented Psychiatric: Yes: Alert, Oriented Labs: CBC, BMP 12/02/16 07:05 12/02/16 07:05 Discharge Summary Reason For Visit: LEG EDEMA, CELLULITIS LEG DIABETES Current Active Problems Cellulitis, leg (Acute) Diabetes (Acute) Hx of CABG (Acute) Leg edema (Acute) RBBB (Acute) Renal dysfunction (Acute) Condition: Improved - Instructions Referrals: Diamante Alvarado MD [Primary Care Provider] - - Home Medications Comprehensive Discharge Medication List: Ambulatory Orders Omeprazole [Prilosec (RX)] 40 mg PO DAILY #0 capsule. 04/27/13 Aspirin [Aspirin EC] 81 mg PO DAILY 10/19/15 Insulin Degludec [Tresiba Flextouch U-200] 70 unit SQ AM 10/19/15 Tamsulosin HCl [Flomax] 0.4 mg PO DAILY 10/13/16 Atorvastatin Ca [Lipitor] 80 mg PO HS tablet 10/16/16 Furosemide [Lasix -] 40 mg PO BID #60 tablet 10/16/16 Insulin Degludec [Tresiba Flextouch U-200] 0 unit SQ DAILY 11/22/16 Metolazone 2.5 mg PO DAILY 11/22/16 Pot Chloride/Pot Bicarb/Cit AC [Potassium Cl 25 Meq Tab Eff] 20 meq PO DAILY
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
== END 2016-12-02 17:56 | disposition home or self-care (01) | DRG 292 ==
LOC: JER 18:49 → JERBED 11-23 02:57 → J6S 11-23 04:35
PROVIDERS: ADMIT Family Medicine; ATTEND Family Medicine
DX: I11.0 Hypertensive heart disease with heart failure (principal); L03.116 Cellulitis of left lower limb; L03.115 Cellulitis of right lower limb; I50.33 Acute on chronic diastolic (congestive) heart failure; J44.9 Chronic obstructive pulmonary disease, unspecified; K21.9 Gastro-esophageal reflux disease without esophagitis; E78.5 Hyperlipidemia, unspecified; I25.2 Old myocardial infarction; E11.40 Type 2 diabetes mellitus with diabetic neuropathy, unspecified; M54.5 Low back pain; I45.19 Other right bundle-branch block; M19.90 Unspecified osteoarthritis, unspecified site; M79.1 Myalgia; N28.9 Disorder of kidney and ureter, unspecified; I44.1 Atrioventricular block, second degree; M48.06 Spinal stenosis, lumbar region; Z96.653 Presence of artificial knee joint, bilateral; Z87.891 Personal history of nicotine dependence; Z95.1 Presence of aortocoronary bypass graft
CPT/HCPCS: 36415; 71010-TC; 71020-TC; 80048; 80053; 80061; 81003; 81015; 82947; 83721; 83735; 83880; 84100; 84443; 85025; 85027; 85379; 85651; 93005; 93010; 93225; 93226; 93306-TC; 93970-TC; 97116-GP; 97161-GP; 99283-25; J1644

== ENCOUNTER 2018-03-11 13:03 | Inpatient (IN) | payer OTHER ==
--- NOTE | 2018-03-11 13:25 | PDOC ---
History of Present Illness - General Chief Complaint: Pain Stated Complaint: FOOT SWELLING Time Seen by Provider: 03/11/18 13:23 - History of Present Illness Initial Comments: 77yo with history of CHF, HTN, [place] s/p CABG, HLD, CKD, COPD, DM presenting with leg swelling x 2 weeks. Reports dyspnea on exertion and leg swelling. He takes lasix 40 BID as instructed by his physician. He states that he cannot even walk across the room without feeling short-winded. When patient lies flat he feels like he cannot breathe. Patient reports that he has had this before and been admitted before but does not really know whats going on. Denies fever, chills, chest pain, or abdominal pain. Past History - Past Medical History Allergies/Adverse Reactions: Allergies Allergy/AdvReac Type Severity Reaction Status Date / Time No Known Allergies Allergy Verified 01/01/18 12:26 Home Medications: Ambulatory Orders Insulin Aspart [Novolog] 15 unit SQ ASDIR 07/16/17 Insulin Degludec [Tresiba Flextouch U-100] 70 unit SQ DAILY 07/16/17 Aspirin [Ecotrin] 162 mg PO DAILY #60 tablet. 01/06/18 Atorvastatin Ca [Lipitor] 40 mg PO HS #30 tablet 01/06/18 Furosemide [Lasix] 40 mg PO BID #60 tablet 01/06/18 Omeprazole 40 mg PO DAILY #30 tablet. 01/06/18 Tamsulosin HCl [Flomax] 0.4 mg PO DAILY #30 capsule 01/06/18 Cardiac Disorders: Yes (NJ X 2, stents, CABG) COPD: Yes Diabetes: Yes GI Disorders: Yes (GERD) HTN: Yes Hypercholesterolemia: Yes - Surgical History Cardiac Surgery: Yes (CATH,cardiac bypass in ) - Immunization History Immunization Up to Date: No - Suicide/Smoking/Psychosocial Hx Smoking Status: No Smoking History: Never smoked Have you smoked in the past 12 months: No Number of Cigarettes Smoked Daily: 0 If you are a former smoker, when did you quit?: 30 years ago Information on smoking cessation initiated: No Hx Alcohol Use: No Drug/Substance Use Hx: No Substance Use Type: None Hx Substance Use Treatment: No Review of Systems - Review of Systems Comments:: Constitutional: no fever, no chills HEENT: no throat pain, no dysphagia Cardiovascular: no chest pain, no palpitations Respiratory: no cough, +shortness of breath Gastrointestinal: no abdominal pain, no nausea, no vomiting Genitourinary: no dysuria, no frequency Musculoskeletal: +leg swelling, no arthralgia Skin: no rash, no itching Neurologic: no headache, no dizziness *Physical Exam - Vital Signs Last Vital Signs Temp Pulse Resp BP Pulse Ox 97.7 F 82 18 169/74 100 03/11/18 13:10 03/11/18 13:10 03/11/18 13:10 03/11/18 13:10 03/11/18 13:10 - Physical Exam Comments: General: Awake, alert, and fully oriented, in no acute distress Head: No signs of trauma Eyes: EOMI, sclera anicteric ENT: Moist mucus membranes Neck: Normal ROM, supple Lungs: Crackles present at right lower lung base Cardio: Regular rhythm, S1 and S2 present Abdomen: Soft, nontender. No guarding, no rebound, no masses Extremities: Normal range of motion, Distal pulses present; 2+ bilateral pitting edema in LE; blood from nailbed of left second toe, hemostatic SKIN: Warm, Dry, normal turgor Neurologic: Cranial nerves II through XII grossly intact. Normal speech ED Treatment Course - LABORATORY CBC & Chemistry Diagram: 03/12/18 06:30 03/12/18 06:30 Medical Decision Making - Medical Decision Making 77yo with history of CHF, HTN, [place] s/p CABG, HLD, CKD, COPD, DM presenting with leg swelling x 2 weeks. -Labs: no leukocytosis, BNP elevated~5400, BUN and Cr elevated but appear to be at patient's baseline -CXR: some increased density at the left base compared with atelectasis or infiltrate with fluid -EKG: rate 76, QTc 522, sinus rhythm with type 1 block -Lasix 40 IV: patient reports that he feels somewhat better -Bacitracin for injured left second toe -Plan to admit patient for CHF exacerbation Discussed case with nurse practitioner Corinne who accepted patient for admission under Dr. Alvarado 03/11/18 16:31 *DC/Admit/Observation/Transfer Diagnosis at time of Disposition: CHF exacerbation - Discharge Dispostion Condition at time of disposition: Guarded Decision to Admit order: Yes - Referrals - Patient Instructions - Post Discharge Activity
[2018-03-11] MEDS ORDERED: BACITRACIN 0.9 GM PACKET ONE (14:18)
[2018-03-11] MEDS ORDERED: FUROSEMIDE 40 MG/4 ML INJECTABLE VIAL IVPUSH ONE (14:25)
[2018-03-11] MEDS ORDERED: BACITRACIN 0.9 GM PACKET TP ONE (14:25)
[2018-03-11] MEDS ORDERED: FUROSEMIDE 40 MG/4 ML INJECTABLE VIAL ONE (14:33)
[2018-03-11 14:37] LABS: BASO % 0.7 % (0-2.0); EOS % 0.8 % (0-4.5); HEMATOCRIT 32.9 % (35.4-49); HEMOGLOBIN 10.3 GM/dL (11.7-16.9); LYMPH % 9.7 % (8-40); MCH 25.4 pg (25.7-33.7); MCHC 31.4 g/dl (32.0-35.9); MEAN CELL VOLUME 80.9 fl (80-96); MONO % 5.8 % (3.8-10.2); PLATELET COUNT 182 K/MM3 (134-434); RBC 4.07 M/mm3 (4.00-5.60); WHITE BLOOD COUNT 8.6 K/mm3 (4.0-10.0)
[2018-03-11 15:17] LABS: ALK PHOS 119 U/L (45-117); ANION GAP 6 MMOL/L (8-16); BILIRUBIN,TOTAL 0.5 mg/dL (0.2-1); BLOOD UREA NITROGEN 30 mg/dL (7-18); CALCIUM 8.3 mg/dL (8.5-10.1); CHLORIDE 106 mmol/L (98-107); CO2 27 mmol/L (21-32); CREATININE 1.8 mg/dL (0.55-1.3); GLUCOSE,RANDOM 65 mg/dL (74-106); N-TERMINAL BNP 5413.2 pg/ml (5-450); POTASSIUM 3.9 mmol/L (3.5-5.1); SGOT/AST 18 U/L (15-37); SGPT/ALT 14 U/L (13-61); SODIUM 139 mmol/L (136-145); TOT PROT 6.8 g/dl (6.4-8.2)
--- NOTE | 2018-03-11 16:02 | PDOC ---
Attending Attestation - Resident Resident Name: Rachel Prado - ED Attending Attestation I have performed the following: I have examined & evaluated the patient, The case was reviewed & discussed with the resident, I agree w/resident's findings & plan, Exceptions are as noted - HPI HPI: 03/11/18 15:53 77 M with h/o CAD/NE, CHF, diabetes, hypertension, COPD and hyperlipidemia presenting to ED with SOB x 2 weeks. Pt endorses BLE swelling as well as worsening EGAN and SOB. Pt denies CP. Denies F/C. Denies N/V/D. Denies abdominal pain. Reports compliance with his meds, including lasix. - Physicial Exam PE: 03/11/18 15:54 "GENERAL: Awake, alert, and fully oriented, in no acute distress. HEAD: No signs of trauma EYES: PERRLA, EOMI, sclera anicteric, conjunctiva clear ENT: Auricles normal inspection, hearing grossly normal, nares patent, oropharynx clear without exudates. Moist mucosa NECK: Nontender, no stepoffs, Normal ROM, supple, no lymphadenopathy, JVD, or masses LUNGS: Breath sounds equal, clear to auscultation bilaterally. No wheezes, and no crackles HEART: Regular rate and rhythm, normal S1 and S2, no murmurs, rubs or gallops ABDOMEN: Soft, nontender, normoactive bowel sounds. No guarding, no rebound. No masses EXTREMITIES: +2 PE BLE, No clubbing or cyanosis. No cords, erythema, or tenderness NEUROLOGICAL: Cranial nerves II through XII intact. 5/5 strength and sensation in all extremities, Normal speech, normal gait, normal cerebellar function SKIN: Warm, Dry, normal turgor, no rashes or lesions noted. - Medical Decision Making 03/11/18 15:54 77 M with EGAN, SOB, and BLE swelling. Clinically consistent with volume overload. Will also r/o infectious process. - Labs, trop, BNP - CXR - IV lasix 03/11/18 16:02 Pt's CXR with likely pulmonary congestion BNP elevated, labs otherwise normal
--- NOTE | 2018-03-11 23:45 | HP ---
Admitting History and Physical - Admission Chief Complaint: shortness of breath / edema LE History of Present Illness: 77 M with h/o CAD/SC, CHF, diabetes, hypertension, COPD and hyperlipidemia presenting to ED with SOB x 2 weeks. Pt endorses BLE swelling as well as worsening EGAN and SOB. Pt denies CP. Denies F/C. Denies N/V/D. Denies abdominal pain. Reports compliance with his meds, including lasix. 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: Peripheral Neuropathy Cardiovascular: Yes: CHF, HTN, Hyperlipdemia, SC, Other (CABG) Pulmonary: Yes: COPD, Other (former smoker) Renal/: Yes: Renal Inusuff Musculoskeletal: Yes: Chronic low back pain, Osteoarthritis Endocrine: Yes: Diabetes Mellitus - Past Surgical History Past Surgical History: Yes: Bypass, CABG, Joint Replacement (bilateral knees) - Smoking History Smoking history: Never smoked Have you smoked in the past 12 months: No Aproximately how many cigarettes per day: 0 If you are a former smoker, when did you quit?: 30 years ago - Alcohol/Substance Use Hx Alcohol Use: No History of Substance Use: reports: None - Social History ADL: Family Assistance History of Recent Travel: No Home Medications - Allergies Allergies/Adverse Reactions: Allergies Allergy/AdvReac Type Severity Reaction Status Date / Time No Known Allergies Allergy Verified 01/01/18 12:26 - Home Medications Home Medications: Ambulatory Orders Insulin Aspart [Novolog] 15 unit SQ ASDIR 07/16/17 Insulin Degludec [Tresiba Flextouch U-100] 70 unit SQ DAILY 07/16/17 Aspirin [Ecotrin] 162 mg PO DAILY #60 tablet. 01/06/18 Atorvastatin Ca [Lipitor] 40 mg PO HS #30 tablet 01/06/18 Furosemide [Lasix] 40 mg PO BID #60 tablet 01/06/18 Omeprazole 40 mg PO DAILY #30 tablet. 01/06/18 Tamsulosin HCl [Flomax] 0.4 mg PO DAILY #30 capsule 01/06/18 Family Disease History - Family Disease History Family Disease History: Diabetes: Father, Mother Review of Systems - Review of Systems Constitutional: reports: Loss of Appetite. denies: Chills, Fever, Night Sweats Eyes: reports: No Symptoms HENT: reports: No Symptoms Neck: reports: No Symptoms Cardiovascular: reports: Edema, Shortness of Breath. denies: Chest Pain Respiratory: reports: Cough, Orthopnea, SOB, SOB on Exertion Gastrointestinal: reports: Abdominal Pain. denies: Nausea, Vomiting Genitourinary: reports: No Symptoms Breasts: reports: No Symptoms Reported Musculoskeletal: reports: Back Pain, Extremity Pain, Joint Pain Integumentary: reports: No Symptoms Neurological: reports: Pre-Existing Deficit Endocrine: reports: No Symptoms Hematology/Lymphatic: reports: No Symptoms Psychiatric: reports: No Symptoms Physical Examination Vital Signs: Vital Signs Temperature 97.6 F 03/11/18 20:12 Pulse Rate 65 03/11/18 20:12 Respiratory Rate 20 03/11/18 20:12 Blood Pressure 154/77 03/11/18 20:12 O2 Sat by Pulse Oximetry (%) 97 03/11/18 20:12 Labs: CBC, BMP 03/11/18 14:20 03/11/18 14:20 Problem List - Problems (1) CHF exacerbation Code(s): I50.9 - HEART FAILURE, UNSPECIFIED (2) Acute on chronic diastolic (congestive) heart failure Code(s): I50.33 - ACUTE ON CHRONIC DIASTOLIC (CONGESTIVE) HEART FAILURE (3) CHF (congestive heart failure) Code(s): I50.9 - HEART FAILURE, UNSPECIFIED (4) CKD (chronic kidney disease) Code(s): N18.9 - CHRONIC KIDNEY DISEASE, UNSPECIFIED (5) Cellulitis, leg Code(s): L03.119 - CELLULITIS OF UNSPECIFIED PART OF LIMB (6) Diabetes Code(s): E11.9 - TYPE 2 DIABETES MELLITUS WITHOUT COMPLICATIONS Qualifiers: Diabetes mellitus ad 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 use: with senior care use Diabetes mellitus complication detail: with unspecified neuropathy (7) Electrolyte abnormality Code(s): E87.8 - OTH DISORDERS OF ELECTROLYTE AND FLUID BALANCE, NEC (8) HTN (hypertension) Code(s): I10 - ESSENTIAL (PRIMARY) HYPERTENSION (9) Hx of CABG Code(s): Z95.1 - PRESENCE OF AORTOCORONARY BYPASS GRAFT (10) Hyperlipidemia Code(s): E78.5 - HYPERLIPIDEMIA, UNSPECIFIED (11) Inflammatory arthritis Code(s): M19.90 - UNSPECIFIED OSTEOARTHRITIS, UNSPECIFIED SITE (12) Leg edema Code(s): R60.0 - LOCALIZED EDEMA (13) Musculoskeletal pain Code(s): M79.1 - MYALGIA * DO NOT USE * (14) Old myocardial infarction Code(s): I25.2 - OLD MYOCARDIAL INFARCTION (15) Sleep apnea Code(s): G47.30 - SLEEP APNEA, UNSPECIFIED (16) Spinal stenosis of lumbar region Code(s): M48.06 - SPINAL STENOSIS, LUMBAR REGION * DO NOT USE * (17) Swelling of joint, wrist, right Code(s): M25.431 - EFFUSION, RIGHT WRIST
[2018-03-12] MEDS: FUROSEMIDE 40 MG/4 ML INJECTABLE VIAL IVPUSH SCH ×2 (06:54→14:00)
[2018-03-12] MEDS: INSULIN SLIDING SCALE (NOVOLOG) 1 VIAL SQ SCH ×4 (07:00→22:40)
[2018-03-12] MEDS: INSULIN (NOVOLOG) ASPART 100 UNITS/ML 10ML VIAL SQ SCH ×3 (07:01→17:08)
[2018-03-12 08:00] LABS: HEMATOCRIT 30.7 % (35.4-49); HEMOGLOBIN 9.8 GM/dL (11.7-16.9); MCH 25.7 pg (25.7-33.7); MCHC 31.9 g/dl (32.0-35.9); MEAN CELL VOLUME 80.7 fl (80-96); MEAN PLT VOLUME 8.7 fl (7.5-11.1); PLATELET COUNT 174 K/MM3 (134-434); WHITE BLOOD COUNT 7.2 K/mm3 (4.0-10.0)
[2018-03-12] MEDS: TAMSULOSIN HCL 0.4 MG CAP PO SCH (08:07)
[2018-03-12 08:21] LABS: ANION GAP 6 MMOL/L (8-16); BLOOD UREA NITROGEN 31 mg/dL (7-18); CALCIUM 8.6 mg/dL (8.5-10.1); CHLORIDE 106 mmol/L (98-107); CO2 28 mmol/L (21-32); CREATININE 1.9 mg/dL (0.55-1.3); GLUCOSE,RANDOM 72 mg/dL (74-106); MAGNESIUM 2.1 mg/dL (1.8-2.4); PHOSPHOROUS 3.3 mg/dL (2.5-4.9); POTASSIUM 4.1 mmol/L (3.5-5.1); SODIUM 141 mmol/L (136-145)
--- NOTE | 2018-03-12 09:48 | EKG ---
Test Reason : Blood Pressure : / mmHG Vent. Rate : 076 BPM Atrial Rate : 048 BPM P-R Int : 272 ms QRS Dur : 142 ms QT Int : 464 ms P-R-T Axes : 013 -28 020 degrees QTc Int : 522 ms SINUS RHYTHM WITH MOBITZ I (WENCKEBACH) BLOCK PREMATURE VENTRICULAR COMPLEXES RIGHT BUNDLE BRANCH BLOCK INFERIOR INFARCT , AGE UNDETERMINED ABNORMAL ECG Confirmed by KASANDRA SANZ MD ([id number]) on 03/12/2018 9:47:57 AM Referred By: Confirmed By:KASANDRA SANZ MD
[2018-03-12] MEDS: ASPIRIN COATED 81 MG TABLET.EC PO SCH (10:25)
[2018-03-12] MEDS: PANTOPRAZOLE 40 MG TABLET (FP) PO SCH (10:25)
--- NOTE | 2018-03-12 10:36 | PN ---
Progress Note (short form) - Note Progress Note: ID Consult dictated Cellulitis LE, L 2nd toe DM CKD Advise IV cefazolin for 24-48 h followed by po keflex
--- NOTE | 2018-03-12 11:09 | CONS ---
INFECTIOUS DISEASE CONSULTATION DATE OF CONSULTATION: DATE OF DICTATION: 03/12/2018 The patient is a 77-year-old diabetic male who is evaluated for cellulitis of the lower extremities bilaterally. He presented to the hospital on March 11, 2018, with complaints of bilateral lower extremity swelling and shortness of breath for 2 weeks. He was admitted to the hospital where he was noted to have bilateral lower extremity and also some erythema. Infectious disease consultation was requested for possible cellulitis of the lower extremities bilaterally. Via modeling manager, the patient reports that he had developed a wound on his left 2nd toe. He states that he developed a wound on the distal aspect of the toe, which spontaneously "exploded," resulting in bloody drainage. He denied any traumatic injury to his lower extremities. No insect or animal bites or scratches. He denies any associated fever or chills. Patient was admitted with cellulitis in the past. His most recent hospital admission was in December of this year. He has no history of MRSA. PAST MEDICAL HISTORY: Positive for diabetes mellitus, congestive heart failure, hypertension, chronic kidney disease, COPD, hyperlipidemia. PAST SURGICAL HISTORY: Status post coronary artery bypass graft. ALLERGIES: No known allergies. MEDICATIONS: Include Flomax, Lipitor, NovoLog, Lasix, Ecotrin, Protonix. SOCIAL HISTORY: He lives at home in the community. Nonsmoker, nondrinker. SYSTEMS REVIEW: Neurologic: No loss of consciousness, seizure activity, focal weakness. Cardiac: Negative chest pain or palpitations. Respiratory: As per HPI. Gastrointestinal: Negative vomiting or diarrhea. Genitourinary: Negative for urinary tract infection. LABORATORY DATA: White count 7.2, hematocrit 30.7, platelets 174. BUN 31, creatinine 1.9. Urinalysis pending. PHYSICAL EXAMINATION: General: He is out of bed to chair. He is in no acute distress. His breathing is non-labored. Vital Signs: Temperature 97.9; blood pressure 144/78, pulse 64, regular; respirations 18 per minute. HEENT: Sclerae are anicteric. Heart: Sounds S1, S2. Lungs: Decreased breath sounds bilaterally. Abdomen: Obese, soft, nontender. Lower Extremities: Bilateral lower extremity edema, 2+. Skin is shiny and slightly erythematous. There is no warmth appreciated. There is some swelling and ulceration of the left 2nd toe. There is no purulent drainage. No lymphangitis. IMPRESSION: 1. Possible lower extremity cellulitis bilaterally. 2. Probable decompensated congestive heart failure. 3. Diabetes mellitus. 4. Chronic kidney disease. Advise empiric antibiotic coverage of skin pathogens with cefazolin 1 g IV piggyback every 12 hours, adjusted for his renal insufficiency, with a switch to p.o. Keflex in the next 24-48 hours depending on clinical response. Will follow. Thank you for the kind referral. ROD CHRISTIE M.D. [id number]
--- NOTE | 2018-03-12 11:28 | CON.CARD ---
Cardiology Consult (text) - Consultation Consultation Note: cc: sob, le edema hpi: 77 m hx cad, mi x2, cabg 2013, pci x2 2017, mobitz I, dchf, copd, dm, htn , hld, ckd here with sob, le edema. Pt takes lasix 80 qd, hasnt missed any doses , but over past 2 wks increased le edema and diaz. No cp palps dizzy loc pnd orthopnea. Sees dr smith for cardio. pmh: per hpi psh: cabg, knee surgery social: ex tob fam: no premature cad, scd ros: per hpi; no nvd fever cough frausto vision changes, gib hematuria dysuria meds: Home Medications Medication Instructions Recorded Insulin Aspart [Novolog] 15 unit SQ ASDIR 07/16/17 Insulin Degludec [Tresiba 70 unit SQ DAILY 07/16/17 Flextouch U-100] Aspirin [Ecotrin] 162 mg PO DAILY #60 tablet. 01/06/18 Atorvastatin Ca [Lipitor] 40 mg PO HS #30 tablet 01/06/18 Furosemide [Lasix] 40 mg PO BID #60 tablet 01/06/18 Omeprazole 40 mg PO DAILY #30 tablet. 01/06/18 Tamsulosin HCl [Flomax] 0.4 mg PO DAILY #30 capsule 01/06/18 pe: Vital Signs Period Temp Pulse Resp BP Sys/Whitehead Pulse Ox Last 24 Hr 97.6 F-98.3 F 55-92 18-20 141-169/74-89 95-100 nad no jvd rrr s1s2 no mrg cta bl nl eff aaox3 2+le edema bl, cellulitis appearance bl shins/feet abd nt nd pos bs no jaundice diaphoresis pos dp pt no carotid bruits Laboratory Last Values WBC 7.2 K/mm3 (4.0-10.0) 03/12/18 06:30 RBC 3.80 M/mm3 (4.00-5.60) L 03/12/18 06:30 Hgb 9.8 GM/dL (11.7-16.9) L 03/12/18 06:30 Hct 30.7 % (35.4-49) L 03/12/18 06:30 MCV 80.7 fl (80-96) 03/12/18 06:30 MCH 25.7 pg (25.7-33.7) 03/12/18 06:30 MCHC 31.9 g/dl (32.0-35.9) L 03/12/18 06:30 RDW 17.0 % (11.9-15.9) H 03/12/18 06:30 Plt Count 174 K/MM3 (134-434) 03/12/18 06:30 MPV 8.7 fl (7.5-11.1) 03/12/18 06:30 Absolute Neuts (auto) 7.1 K/mm3 (1.5-8.0) 03/11/18 14:20 Neutrophils % 83.0 % (42.8-82.8) H 03/11/18 14:20 Lymphocytes % 9.7 % (8-40) 03/11/18 14:20 Monocytes % 5.8 % (3.8-10.2) 03/11/18 14:20 Eosinophils % 0.8 % (0-4.5) D 03/11/18 14:20 Basophils % 0.7 % (0-2.0) D 03/11/18 14:20 Nucleated RBC % 0 % (0-0) 03/11/18 14:20 Sodium 141 mmol/L (136-145) 03/12/18 06:30 Potassium 4.1 mmol/L (3.5-5.1) 03/12/18 06:30 Chloride 106 mmol/L (98-107) 03/12/18 06:30 Carbon Dioxide 28 mmol/L (21-32) 03/12/18 06:30 Anion Gap 6 MMOL/L (8-16) L 03/12/18 06:30 BUN 31 mg/dL (7-18) H 03/12/18 06:30 Creatinine 1.9 mg/dL (0.55-1.3) H 03/12/18 06:30 Creat Clearance w eGFR 34.46 (>60) 03/12/18 06:30 POC Glucometer 85 UNITS (80-120) 03/12/18 06:56 Random Glucose 72 mg/dL (74-106) L 03/12/18 06:30 Calcium 8.6 mg/dL (8.5-10.1) 03/12/18 06:30 Phosphorus 3.3 mg/dL (2.5-4.9) 03/12/18 06:30 Magnesium 2.1 mg/dL (1.8-2.4) 03/12/18 06:30 Total Bilirubin 0.5 mg/dL (0.2-1) 03/11/18 14:20 AST 18 U/L (15-37) 03/11/18 14:20 ALT 14 U/L (13-61) 03/11/18 14:20 Alkaline Phosphatase 119 U/L (45-117) H 03/11/18 14:20 Troponin I 0.03 ng/ml (0.00-0.05) 03/11/18 14:20 B-Natriuretic Peptide 5413.2 pg/ml (5-450) H 03/11/18 14:20 Total Protein 6.8 g/dl (6.4-8.2) 03/11/18 14:20 Albumin 3.0 g/dl (3.4-5.0) L 03/11/18 14:20 cxr: clear lungs echo 06/2017: mild dec lvef, nl rv, mild mr, mild-mod tr, rvsp 40-50, mild ar, mild pr ecg: sr, pvcs, mobitz 1, old rbbb a/p: 77 m hx cad, mi x2, cabg 2012, pci x2 2017, mobitz I, dchf, copd, dm, htn , hld, ckd here with sob, le edema. sob,acute diastolic chf: -no signs acs -pt was on lasix 80 qd at home -cont lasix 40 iv bid, daily chem7, wts cad: -stable, no signs acs -cont asa, statin abnl ecg, mobitz 1: -chronic finding htn: -stable hld: -cont statin ckd: -cr at baseline, monitor with lasix
[2018-03-12] MEDS ORDERED: DEXTROSE 5%-WATER - 50 ML IVPB ONE ×2 (11:34→21:22)
[2018-03-12] MEDS ORDERED: ceFAZolin SODIUM 1 GM VIAL ONE ×2 (11:34→21:22)
[2018-03-12] MEDS: CEFAZOLIN 1 GM in DEXTROSE 5%-WATER - 50 ML IVPB SCH ×2 (11:48→22:33)
--- NOTE | 2018-03-12 14:02 | CONSULT ---
Consult Consult Specialty:: Nephrology Reason for Consultation:: CKD - History of Present Illness Chief Complaint: lower ext edema History of Present Illness: Pt is a 77 year old male with pmhx of CKD, CHF, HTN, AL, CABG, CAD, HLD, DM and COPD who presents with lower ext edema that has been getting worse. He also complains of shortness of breath with exertion. He has CKD however has not followed up with me in quite some time.He takes lasix 40 mg twice per day at home. He denies fevers or chills. SHe denies dysuria or hematuria. He denies nsaid use. 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: Peripheral Neuropathy Cardio/Vascular: Yes: CHF, HTN, Hyperlipdemia, AL, Other (CABG) Pulmonary: Yes: COPD, Other (former smoker) Renal/: Yes: Renal Inusuff Musculoskeletal: Yes: Chronic low back pain, Osteoarthritis Endocrine: Yes: Diabetes Mellitus - Past Surgical History Past Surgical History: Yes: Bypass, CABG, Joint Replacement (bilateral knees) - Alcohol/Substance Use Hx Alcohol Use: No History of Substance Use: reports: None - Smoking History Smoking history: Never smoked Have you smoked in the past 12 months: No Aproximately how many cigarettes per day: 0 If you are a former smoker, when did you quit?: 30 years ago - Social History Usual Living Arrangement: With Child ADL: Family Assistance History of Recent Travel: No Home Medications - Allergies Allergies/Adverse Reactions: Allergies Allergy/AdvReac Type Severity Reaction Status Date / Time No Known Allergies Allergy Verified 01/01/18 12:26 - Home Medications Home Medications: Ambulatory Orders Insulin Aspart [Novolog] 15 unit SQ ASDIR 07/16/17 Insulin Degludec [Tresiba Flextouch U-100] 70 unit SQ DAILY 07/16/17 Aspirin [Ecotrin] 162 mg PO DAILY #60 tablet. 01/06/18 Atorvastatin Ca [Lipitor] 40 mg PO HS #30 tablet 01/06/18 Furosemide [Lasix] 40 mg PO BID #60 tablet 01/06/18 Omeprazole 40 mg PO DAILY #30 tablet. 01/06/18 Tamsulosin HCl [Flomax] 0.4 mg PO DAILY #30 capsule 01/06/18 Family Disease History - Family Disease History Family Disease History: Diabetes: Father, Mother Review of Systems - Review of Systems Constitutional: reports: No Symptoms Eyes: reports: No Symptoms HENT: reports: No Symptoms Neck: reports: No Symptoms Cardiovascular: reports: Edema, Shortness of Breath Respiratory: reports: SOB, SOB on Exertion Gastrointestinal: reports: No Symptoms Genitourinary: reports: No Symptoms Musculoskeletal: reports: No Symptoms Integumentary: reports: No Symptoms Neurological: reports: No Symptoms Endocrine: reports: No Symptoms Hematology/Lymphatic: reports: No Symptoms Psychiatric: reports: No Symptoms Physical Exam Vital Signs: Vital Signs Temperature 98.1 F 03/12/18 13:49 Pulse Rate 63 03/12/18 13:49 Respiratory Rate 20 03/12/18 09:00 Blood Pressure 153/71 03/12/18 13:49 O2 Sat by Pulse Oximetry (%) 93 L 03/12/18 09:00 Constitutional: Yes: Calm Eyes: Yes: Conjunctiva Clear HENT: Yes: Atraumatic Cardiovascular: Yes: S1, S2 Respiratory: Yes: Rhonchi Gastrointestinal: Yes: Soft, Abdomen, Obese Renal/: Yes: WNL Musculoskeletal: Yes: WNL Edema: Yes Edema: LLE: 2+, RLE: 2+ Integumentary: Yes: Venous Stasis Changes Neurological: Yes: Oriented Psychiatric: Yes: Oriented Labs: CBC, BMP 03/12/18 06:30 03/12/18 06:30 Laboratory Tests 01/01/18 01/02/18 01/04/18 14:15 07:20 10:01 WBC Hgb Plt Count Sodium Carbon Dioxide BUN Creatinine 1.9 H 1.8 H 2.2 H B-Natriuretic Peptide 01/05/18 03/11/18 03/11/18 07:00 14:20 14:20 WBC Hgb 10.3 L Plt Count 182 D Sodium Carbon Dioxide BUN 30 H Creatinine 2.2 H 1.8 H B-Natriuretic Peptide 5413.2 H 03/12/18 03/12/18 06:30 06:30 WBC 7.2 Hgb 9.8 L Plt Count 174 Sodium 141 Carbon Dioxide 28 BUN 31 H Creatinine 1.9 H B-Natriuretic Peptide Imaging - Results Chest X-ray: Report Reviewed Problem List - Problems (1) CHF exacerbation Code(s): I50.9 - HEART FAILURE, UNSPECIFIED (2) CHF (congestive heart failure) Code(s): I50.9 - HEART FAILURE, UNSPECIFIED (3) CKD (chronic kidney disease) Code(s): N18.9 - CHRONIC KIDNEY DISEASE, UNSPECIFIED (4) HTN (hypertension) Code(s): I10 - ESSENTIAL (PRIMARY) HYPERTENSION (5) Morbid obesity Code(s): E66.01 - MORBID (SEVERE) OBESITY DUE TO EXCESS CALORIES Assessment/Plan Current Medications Generic Name Dose Route Start Last Admin Trade Name [place] PRN Reason Stop Dose Admin Aspirin 162 mg 03/12/18 10:00 03/12/18 10:25 Ecotrin - PO 162 mg DAILY JENNIFER Administration Atorvastatin Calcium 40 mg 03/12/18 22:00 Lipitor - PO HS JENNIFER Furosemide 40 mg 03/12/18 06:00 03/12/18 06:54 Lasix Injection - IVPUSH 40 mg BID@0600,1400 JENNIFER Administration Cefazolin Sodium 1 gm/ 50 mls @ 100 mls/hr 03/12/18 11:00 03/12/18 11:48 Dextrose IVPB 100 mls/hr BID JENNIFER Administration Insulin Aspart 15 units 03/12/18 07:00 03/12/18 11:49 Novolog Vial SQ 15 units TIDAC JENNIFER Administration Insulin Aspart 1 vial 03/12/18 07:00 03/12/18 11:38 Novolog Vial Sliding Scale - SQ Not Given ACHS JENNIFER Protocol Pantoprazole Sodium 40 mg 03/12/18 10:00 03/12/18 10:25 Protonix - PO 40 mg DAILY JENNIFER Administration Tamsulosin HCl 0.4 mg 03/12/18 08:30 03/12/18 08:07 Flomax - PO 0.4 mg DAILY@0830 JENNIFER Administration Impression 1. CKD 2. CHF 3. DM 4. obesity 5. HTN 6. dyspnea 7. HLD 8. 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
--- NOTE | 2018-03-12 21:05 | PN ---
Progress Note, Physician - Current Medication List Current Medications: Active Medications Aspirin (Ecotrin -) 162 mg PO DAILY [facility] Last Admin: 03/12/18 10:25 Dose: 162 mg Atorvastatin Calcium (Lipitor -) 40 mg PO HS [facility] Furosemide (Lasix Injection -) 40 mg IVPUSH BID@0600,1400 [facility] Last Admin: 03/12/18 14:00 Dose: 40 mg Cefazolin Sodium 1 gm/ (Dextrose) 50 mls @ 100 mls/hr IVPB BID [facility] Last Admin: 03/12/18 11:48 Dose: 100 mls/hr Insulin Aspart (Novolog Vial) 15 units SQ TIDAC [facility] Last Admin: 03/12/18 17:08 Dose: Not Given Insulin Aspart (Novolog Vial Sliding Scale -) 1 vial SQ ACHS [facility]; Protocol Last Admin: 03/12/18 17:08 Dose: Not Given Pantoprazole Sodium (Protonix -) 40 mg PO DAILY [facility] Last Admin: 03/12/18 10:25 Dose: 40 mg Tamsulosin HCl (Flomax -) 0.4 mg PO DAILY@0830 [facility] Last Admin: 03/12/18 08:07 Dose: 0.4 mg - Objective Vital Signs: Vital Signs Temperature 98.1 F 03/12/18 13:49 Pulse Rate 63 03/12/18 13:49 Respiratory Rate 20 03/12/18 09:00 Blood Pressure 153/71 03/12/18 13:49 O2 Sat by Pulse Oximetry (%) 93 L 03/12/18 09:00 Constitutional: Yes: Obese Neck: Yes: WNL, Supple Cardiovascular: Yes: WNL, Regular Rate and Rhythm Respiratory: Yes: WNL, Regular, CTA Bilaterally Gastrointestinal: Yes: WNL, Normal Bowel Sounds, Soft, Abdomen, Obese Edema: LLE: Trace, RLE: Trace Labs: CBC, BMP 03/12/18 06:30 03/12/18 06:30 Problem List - Problems (1) Acute on chronic diastolic (congestive) heart failure Code(s): I50.33 - ACUTE ON CHRONIC DIASTOLIC (CONGESTIVE) HEART FAILURE (2) CKD (chronic kidney disease) Code(s): N18.9 - CHRONIC KIDNEY DISEASE, UNSPECIFIED (3) Cellulitis, leg Code(s): L03.119 - CELLULITIS OF UNSPECIFIED PART OF LIMB (4) Diabetes Code(s): E11.9 - TYPE 2 DIABETES MELLITUS WITHOUT COMPLICATIONS Qualifiers: Diabetes mellitus oysterman insulin use: with senior care use Diabetes mellitus complication detail: with unspecified neuropathy (5) HTN (hypertension) Code(s): I10 - ESSENTIAL (PRIMARY) HYPERTENSION (6) Hx of CABG Code(s): Z95.1 - PRESENCE OF AORTOCORONARY BYPASS GRAFT (7) Hyperlipidemia Code(s): E78.5 - HYPERLIPIDEMIA, UNSPECIFIED (8) Morbid obesity Code(s): E66.01 - MORBID (SEVERE) OBESITY DUE TO EXCESS CALORIES (9) Sleep apnea Code(s): G47.30 - SLEEP APNEA, UNSPECIFIED
[2018-03-12] MEDS: ATORVASTATIN CA 40 MG TABLET (FP) PO SCH (22:34)
[2018-03-13] MEDS: INSULIN (NOVOLOG) ASPART 100 UNITS/ML 10ML VIAL SQ SCH ×3 (06:01→16:55)
[2018-03-13] MEDS: FUROSEMIDE 40 MG/4 ML INJECTABLE VIAL IVPUSH SCH ×2 (06:01→14:18)
[2018-03-13] MEDS: INSULIN SLIDING SCALE (NOVOLOG) 1 VIAL SQ SCH ×4 (06:02→21:26)
[2018-03-13 08:36] LABS: ALBUMIN 2.9 g/dl (3.4-5.0); ALK PHOS 110 U/L (45-117); ANION GAP 6 MMOL/L (8-16); BILIRUBIN,TOTAL 0.5 mg/dL (0.2-1); BLOOD UREA NITROGEN 34 mg/dL (7-18); CALCIUM 8.9 mg/dL (8.5-10.1); CHLORIDE 103 mmol/L (98-107); CO2 30 mmol/L (21-32); CREATININE 1.9 mg/dL (0.55-1.3); GLUCOSE,RANDOM 100 mg/dL (74-106); POTASSIUM 4.2 mmol/L (3.5-5.1); SGOT/AST 15 U/L (15-37); SGPT/ALT 12 U/L (13-61); SODIUM 139 mmol/L (136-145); TOT PROT 6.6 g/dl (6.4-8.2)
[2018-03-13] MEDS ORDERED: DEXTROSE 5%-WATER - 50 ML IVPB ONE (10:01)
[2018-03-13] MEDS ORDERED: ceFAZolin SODIUM 1 GM VIAL ONE (10:01)
[2018-03-13] MEDS: CEFAZOLIN 1 GM in DEXTROSE 5%-WATER - 50 ML IVPB SCH (10:07)
[2018-03-13] MEDS: ASPIRIN COATED 81 MG TABLET.EC PO SCH (10:08)
[2018-03-13] MEDS: PANTOPRAZOLE 40 MG TABLET (FP) PO SCH (10:08)
[2018-03-13] MEDS: TAMSULOSIN HCL 0.4 MG CAP PO SCH (10:08)
--- NOTE | 2018-03-13 13:28 | PN ---
Progress Note (short form) - Note Progress Note: 77 y/o male found sitting in room. Reports SOB improving. Denies pain. Vital Signs Period Temp Pulse Resp BP Sys/Whitehead Pulse Ox Last 24 Hr 98 F-98.8 F 56-70 20-20 130-153/58-88 94 CBC, BMP 03/12/18 06:30 03/13/18 07:25 HEENT- NL Neck-supple Lungs-CTAB Heart-S1/S2 Abd-Obese Ext-2+ b/l pitting edema Active Medications Aspirin (Ecotrin -) 162 mg PO DAILY [facility] Last Admin: 03/13/18 10:08 Dose: 162 mg Atorvastatin Calcium (Lipitor -) 40 mg PO HS [facility] Last Admin: 03/12/18 22:34 Dose: 40 mg Furosemide (Lasix Injection -) 40 mg IVPUSH BID@0600,1400 [facility] Last Admin: 03/13/18 06:01 Dose: 40 mg Cefazolin Sodium 1 gm/ (Dextrose) 50 mls @ 100 mls/hr IVPB BID [facility] Last Admin: 03/13/18 10:07 Dose: 100 mls/hr Insulin Aspart (Novolog Vial) 15 units SQ TIDAC [facility] Last Admin: 03/13/18 11:54 Dose: 15 units Insulin Aspart (Novolog Vial Sliding Scale -) 1 vial SQ ACHS [facility]; Protocol Last Admin: 03/13/18 11:52 Dose: Not Given Pantoprazole Sodium (Protonix -) 40 mg PO DAILY [facility] Last Admin: 03/13/18 10:08 Dose: 40 mg Tamsulosin HCl (Flomax -) 0.4 mg PO DAILY@0830 [facility] Last Admin: 03/13/18 10:08 Dose: 0.4 mg # B/L LE edema Lasix IV push bid #Cellulitis IV antibiotics #Diabetes Cont Novolog #HLD Cont statin Problem List - Problems (1) CHF exacerbation Code(s): I50.9 - HEART FAILURE, UNSPECIFIED (2) Acute on chronic diastolic (congestive) heart failure Code(s): I50.33 - ACUTE ON CHRONIC DIASTOLIC (CONGESTIVE) HEART FAILURE (3) CHF (congestive heart failure) Code(s): I50.9 - HEART FAILURE, UNSPECIFIED (4) CKD (chronic kidney disease) Code(s): N18.9 - CHRONIC KIDNEY DISEASE, UNSPECIFIED (5) Cellulitis, leg Code(s): L03.119 - CELLULITIS OF UNSPECIFIED PART OF LIMB (6) Diabetes Code(s): E11.9 - TYPE 2 DIABETES MELLITUS WITHOUT COMPLICATIONS Qualifiers: Diabetes mellitus manager terminal insulin use: with detention use Diabetes mellitus complication detail: with unspecified neuropathy (7) Electrolyte abnormality Code(s): E87.8 - OTH DISORDERS OF ELECTROLYTE AND FLUID BALANCE, NEC (8) HTN (hypertension) Code(s): I10 - ESSENTIAL (PRIMARY) HYPERTENSION (9) Hx of CABG Code(s): Z95.1 - PRESENCE OF AORTOCORONARY BYPASS GRAFT (10) Hyperlipidemia Code(s): E78.5 - HYPERLIPIDEMIA, UNSPECIFIED (11) Inflammatory arthritis Code(s): M19.90 - UNSPECIFIED OSTEOARTHRITIS, UNSPECIFIED SITE (12) Leg edema Code(s): R60.0 - LOCALIZED EDEMA (13) Musculoskeletal pain Code(s): M79.1 - MYALGIA * DO NOT USE * (14) Old myocardial infarction Code(s): I25.2 - OLD MYOCARDIAL INFARCTION (15) Sleep apnea Code(s): G47.30 - SLEEP APNEA, UNSPECIFIED (16) Spinal stenosis of lumbar region Code(s): M48.06 - SPINAL STENOSIS, LUMBAR REGION * DO NOT USE * (17) Swelling of joint, wrist, right Code(s): M25.431 - EFFUSION, RIGHT WRIST
--- NOTE | 2018-03-13 15:26 | PN ---
Progress Note, Physician History of Present Illness: No c/o foot/ leg pain No fever/ chills - Current Medication List Current Medications: Active Medications Aspirin (Ecotrin -) 162 mg PO DAILY [facility] Last Admin: 03/13/18 10:08 Dose: 162 mg Atorvastatin Calcium (Lipitor -) 40 mg PO HS [facility] Last Admin: 03/12/18 22:34 Dose: 40 mg Furosemide (Lasix Injection -) 40 mg IVPUSH BID@0600,1400 [facility] Last Admin: 03/13/18 14:18 Dose: 40 mg Cefazolin Sodium 1 gm/ (Dextrose) 50 mls @ 100 mls/hr IVPB BID [facility] Last Admin: 03/13/18 10:07 Dose: 100 mls/hr Insulin Aspart (Novolog Vial) 15 units SQ TIDAC [facility] Last Admin: 03/13/18 11:54 Dose: 15 units Insulin Aspart (Novolog Vial Sliding Scale -) 1 vial SQ ACHS [facility]; Protocol Last Admin: 03/13/18 11:52 Dose: Not Given Pantoprazole Sodium (Protonix -) 40 mg PO DAILY [facility] Last Admin: 03/13/18 10:08 Dose: 40 mg Tamsulosin HCl (Flomax -) 0.4 mg PO DAILY@0830 [facility] Last Admin: 03/13/18 10:08 Dose: 0.4 mg - Objective Vital Signs: Vital Signs Temperature 98.0 F 03/13/18 14:07 Pulse Rate 58 L 03/13/18 14:07 Respiratory Rate 20 03/13/18 10:00 Blood Pressure 163/83 03/13/18 14:07 O2 Sat by Pulse Oximetry (%) 94 L 03/12/18 21:00 Constitutional: Yes: Obese Cardiovascular: Yes: Regular Rate and Rhythm, S1, S2 Respiratory: Yes: Other (+ crepitations at bases bilaterally) Gastrointestinal: Yes: Normal Bowel Sounds, Soft, Abdomen, Obese Extremities: Yes: Other (erythema LE resolved L 2nd toe no drainage) Edema: Yes Labs: CBC, BMP 03/12/18 06:30 03/13/18 07:25 Assessment/Plan Cellulitis LE, L 2ndtoe CHF DM CKD Substitute Keflex 500mg po bid
--- NOTE | 2018-03-13 17:39 | PN ---
Progress Note (short form) - Note Progress Note: 1. CKD 2. CHF 3. DM 4. obesity 5. HTN 6. dyspnea 7. HLD 8. CAD s/p cabg Current Medications Aspirin (Ecotrin -) 162 mg PO DAILY [facility] Last Admin: 03/13/18 10:08 Dose: 162 mg Atorvastatin Calcium (Lipitor -) 40 mg PO HS [facility] 234 [facility]S [facility] Last Admin: 03/12/18 22:34 Dose: 40 mg Cephalexin HCl (Keflex -) 500 mg PO BID [facility] 234 [facility]S AT [facility] Furosemide (Lasix Injection -) 40 mg IVPUSH BID@0600,1400 [facility] 234 [facility]S [facility] Last Admin: 03/13/18 14:18 Dose: 40 mg Insulin Aspart (Novolog Vial) 15 units SQ TIDAC [facility] 234 [facility]S [facility] Last Admin: 03/13/18 16:55 Dose: Not Given Insulin Aspart (Novolog Vial Sliding Scale -) 1 vial SQ ACHS [facility]S [facility]; Protocol Last Admin: 03/13/18 16:55 Dose: Not Given Pantoprazole Sodium (Protonix -) 40 mg PO DAILY [facility] Last Admin: 03/13/18 10:08 Dose: 40 mg Tamsulosin HCl (Flomax -) 0.4 mg PO DAILY@0830 [facility] 234 [facility]S [facility] Last Admin: 03/13/18 10:08 Dose: 0.4 mg Last Vital Signs Temp Pulse Resp BP Pulse Ox 98.0 F 58 L 20 163/83 94 L 03/13/18 14:07 03/13/18 14:07 03/13/18 10:00 03/13/18 14:07 03/12/18 21:00 CBC, BMP 03/12/18 06:30 03/13/18 07:25
[2018-03-13] MEDS ORDERED: ACETAMINOPHEN 325 MG TABLET (FP) PO ONE (17:45)
[2018-03-13 18:42] LABS: URINE APPEARANCE CLEAR; URINE BILIRUBIN NEGATIVE (<2.0 mg/dL); URINE COLOR STRAW; URINE GLUCOSE (UA) NEGATIVE (NEGATIVE); URINE KETONE NEGATIVE (NEGATIVE); URINE LEUK ESTERASE NEGATIVE (NEGATIVE); URINE NITRITE NEGATIVE (NEGATIVE); URINE PROTEIN 1+ (NEGATIVE); URINE UROBILINOGEN NEGATIVE mg/dL (0.2-1.0)
[2018-03-13 19:18] LABS: EPI CELLS RARE /HPF (FEW); URINE MUCUS RARE
[2018-03-13 20:08] LABS: RATIO URIN PROTEIN/URIN CREAT 1.45 MG/DL
[2018-03-13] MEDS: CEPHALEXIN MONOHYDRATE 500 MG CAPSULE (UD) PO SCH (21:27)
[2018-03-13] MEDS: ATORVASTATIN CA 40 MG TABLET (FP) PO SCH (21:27)
[2018-03-14] MEDS: INSULIN SLIDING SCALE (NOVOLOG) 1 VIAL SQ SCH ×4 (06:00→21:56)
[2018-03-14] MEDS: FUROSEMIDE 40 MG/4 ML INJECTABLE VIAL IVPUSH SCH ×2 (06:01→13:16)
[2018-03-14] MEDS: INSULIN (NOVOLOG) ASPART 100 UNITS/ML 10ML VIAL SQ SCH ×3 (06:01→16:15)
[2018-03-14 07:29] LABS: BASO % 0.7 % (0-2.0); EOS % 2.2 % (0-4.5); HEMATOCRIT 32.5 % (35.4-49); HEMOGLOBIN 10.1 GM/dL (11.7-16.9); LYMPH % 12.1 % (8-40); MCH 25.2 pg (25.7-33.7); MCHC 31.2 g/dl (32.0-35.9); MEAN CELL VOLUME 80.9 fl (80-96); MEAN PLT VOLUME 8.7 fl (7.5-11.1); MONO % 8.1 % (3.8-10.2); NEUT % 76.9 % (42.8-82.8); PLATELET COUNT 187 K/MM3 (134-434); RBC 4.02 M/mm3 (4.00-5.60); WHITE BLOOD COUNT 7.6 K/mm3 (4.0-10.0)
[2018-03-14 07:52] LABS: ALBUMIN 2.9 g/dl (3.4-5.0); ALK PHOS 112 U/L (45-117); ANION GAP 8 MMOL/L (8-16); BILIRUBIN,TOTAL 0.6 mg/dL (0.2-1); BLOOD UREA NITROGEN 39 mg/dL (7-18); CALCIUM 8.3 mg/dL (8.5-10.1); CHLORIDE 102 mmol/L (98-107); CO2 28 mmol/L (21-32); CREATININE 2.1 mg/dL (0.55-1.3); GLUCOSE,RANDOM 126 mg/dL (74-106); POTASSIUM 4.3 mmol/L (3.5-5.1); SGOT/AST 13 U/L (15-37); SGPT/ALT 12 U/L (13-61); SODIUM 138 mmol/L (136-145); TOT PROT 6.7 g/dl (6.4-8.2)
[2018-03-14] MEDS: TAMSULOSIN HCL 0.4 MG CAP PO SCH (08:37)
[2018-03-14] MEDS: ASPIRIN COATED 81 MG TABLET.EC PO SCH (09:43)
[2018-03-14] MEDS: PANTOPRAZOLE 40 MG TABLET (FP) PO SCH (09:43)
[2018-03-14] MEDS: CEPHALEXIN MONOHYDRATE 500 MG CAPSULE (UD) PO SCH ×2 (09:43→21:57)
[2018-03-14 14:26] VITALS: BMI 40.5
--- NOTE | 2018-03-14 15:12 | PN ---
Progress Note (short form) - Note Progress Note: 1. CKD 2. CHF 3. DM 4. obesity 5. HTN 6. dyspnea 7. HLD 8. CAD s/p cabg Current Medications Aspirin (Ecotrin -) 162 mg PO DAILY [facility] Last Admin: 03/14/18 09:43 Dose: 162 mg Atorvastatin Calcium (Lipitor -) 40 mg PO HS [facility] Last Admin: 03/13/18 21:27 Dose: 40 mg Cephalexin HCl (Keflex -) 500 mg PO BID [facility] Last Admin: 03/14/18 09:43 Dose: 500 mg Furosemide (Lasix Injection -) 40 mg IVPUSH BID@0600,1400 [facility] Last Admin: 03/14/18 13:16 Dose: 40 mg Insulin Aspart (Novolog Vial) 15 units SQ TIDAC [facility] Last Admin: 03/14/18 11:55 Dose: Not Given Insulin Aspart (Novolog Vial Sliding Scale -) 1 vial SQ ACHS [facility]; Protocol Last Admin: 03/14/18 11:55 Dose: Not Given Pantoprazole Sodium (Protonix -) 40 mg PO DAILY [facility] Last Admin: 03/14/18 09:43 Dose: 40 mg Tamsulosin HCl (Flomax -) 0.4 mg PO DAILY@0830 [facility] Last Admin: 03/14/18 08:37 Dose: 0.4 mg Last Vital Signs Temp Pulse Resp BP Pulse Ox 97.6 F 68 15 137/64 94 L 03/14/18 08:57 03/14/18 08:57 03/14/18 08:57 03/14/18 08:57 03/12/18 21:00 sitting in chair "tired of being in the bed" denies sob in bed Lungs clear Heart reg Abd soft nontender Ext 2-3 edema CBC, BMP 03/14/18 06:10 03/14/18 06:10 CBC, BMP 03/12/18 06:30 03/13/18 07:25 IMP CHF ckd renal function remains stable fluid overload tolerating diuretic tx continue diuretic tx
--- NOTE | 2018-03-14 17:11 | PN ---
Progress Note (short form) - Note Progress Note: sitting in chair legs elevated patient reports improvement with respect to abdominal girth and EGAN able to ambulate in room without becoming dyspneic legs " less swollen" Vital Signs Period Temp Pulse Resp BP Sys/Whitehead Pulse Ox Last 24 Hr 97.6 F-98.3 F 58-73 15-20 135-152/64-79 neck supple heart s1/S2 lung clear bilat abd protuberant / soft / BS + Ext ++edema / firm bilat surgical scar Knees left foot cooler than right + pulses bilat CBC, BMP 03/14/18 06:10 03/14/18 06:10 Active Medications Aspirin (Ecotrin -) 162 mg PO DAILY [facility] Last Admin: 03/14/18 09:43 Dose: 162 mg Atorvastatin Calcium (Lipitor -) 40 mg PO HS [facility] Last Admin: 03/13/18 21:27 Dose: 40 mg Cephalexin HCl (Keflex -) 500 mg PO BID [facility] Last Admin: 03/14/18 09:43 Dose: 500 mg Furosemide (Lasix Injection -) 40 mg IVPUSH BID@0600,1400 [facility] Last Admin: 03/14/18 13:16 Dose: 40 mg Insulin Aspart (Novolog Vial) 15 units SQ TIDAC [facility] Last Admin: 03/14/18 16:15 Dose: 15 units Insulin Aspart (Novolog Vial Sliding Scale -) 1 vial SQ ACHS [facility]; Protocol Last Admin: 03/14/18 16:16 Dose: 2 units Pantoprazole Sodium (Protonix -) 40 mg PO DAILY [facility] Last Admin: 03/14/18 09:43 Dose: 40 mg Tamsulosin HCl (Flomax -) 0.4 mg PO DAILY@0830 [facility] Last Admin: 03/14/18 08:37 Dose: 0.4 mg # CHF fluid overload - responding to Lasix continue to trend renal function daily weights # DM sliding scale ada diet / statins # CKD appreciate nephrology follow up renal function remains stable will continue management # BPH continue home meds Problem List - Problems (1) CHF exacerbation Code(s): I50.9 - HEART FAILURE, UNSPECIFIED (2) Acute on chronic diastolic (congestive) heart failure Code(s): I50.33 - ACUTE ON CHRONIC DIASTOLIC (CONGESTIVE) HEART FAILURE (3) CHF (congestive heart failure) Code(s): I50.9 - HEART FAILURE, UNSPECIFIED (4) CKD (chronic kidney disease) Code(s): N18.9 - CHRONIC KIDNEY DISEASE, UNSPECIFIED (5) Cellulitis, leg Code(s): L03.119 - CELLULITIS OF UNSPECIFIED PART OF LIMB (6) Diabetes Code(s): E11.9 - TYPE 2 DIABETES MELLITUS WITHOUT COMPLICATIONS Qualifiers: Diabetes mellitus superintendent terminal insulin use: with superintendent terminal use Diabetes mellitus complication detail: with unspecified neuropathy (7) Electrolyte abnormality Code(s): E87.8 - OTH DISORDERS OF ELECTROLYTE AND FLUID BALANCE, NEC (8) HTN (hypertension) Code(s): I10 - ESSENTIAL (PRIMARY) HYPERTENSION (9) Hx of CABG Code(s): Z95.1 - PRESENCE OF AORTOCORONARY BYPASS GRAFT (10) Hyperlipidemia Code(s): E78.5 - HYPERLIPIDEMIA, UNSPECIFIED (11) Inflammatory arthritis Code(s): M19.90 - UNSPECIFIED OSTEOARTHRITIS, UNSPECIFIED SITE (12) Leg edema Code(s): R60.0 - LOCALIZED EDEMA (13) Musculoskeletal pain Code(s): M79.1 - MYALGIA * DO NOT USE * (14) Old myocardial infarction Code(s): I25.2 - OLD MYOCARDIAL INFARCTION (15) Sleep apnea Code(s): G47.30 - SLEEP APNEA, UNSPECIFIED (16) Spinal stenosis of lumbar region Code(s): M48.06 - SPINAL STENOSIS, LUMBAR REGION * DO NOT USE * (17) Swelling of joint, wrist, right Code(s): M25.431 - EFFUSION, RIGHT WRIST
[2018-03-14] MEDS ORDERED: INSULIN (NOVOLOG) ASPART 100 UNITS/ML 10ML VIAL ONE (21:08)
[2018-03-14] MEDS: ATORVASTATIN CA 40 MG TABLET (FP) PO SCH (21:56)
[2018-03-15] MEDS ORDERED: ACETAMINOPHEN 325 MG TABLET (FP) PO ONE (02:04)
[2018-03-15] MEDS: INSULIN SLIDING SCALE (NOVOLOG) 1 VIAL SQ SCH ×4 (06:08→21:09)
[2018-03-15] MEDS: INSULIN (NOVOLOG) ASPART 100 UNITS/ML 10ML VIAL SQ SCH ×3 (06:08→16:34)
[2018-03-15] MEDS: FUROSEMIDE 40 MG/4 ML INJECTABLE VIAL IVPUSH SCH ×2 (06:09→13:59)
[2018-03-15 08:17] LABS: BASO % 1.1 % (0-2.0); EOS % 1.9 % (0-4.5); HEMATOCRIT 33.4 % (35.4-49); HEMOGLOBIN 10.5 GM/dL (11.7-16.9); LYMPH % 13.3 % (8-40); MCH 25.6 pg (25.7-33.7); MCHC 31.6 g/dl (32.0-35.9); MEAN PLT VOLUME 9.3 fl (7.5-11.1); NEUT % 76.7 % (42.8-82.8); PLATELET COUNT 205 K/MM3 (134-434); RBC 4.12 M/mm3 (4.00-5.60); RDW 16.9 % (11.9-15.9); WHITE BLOOD COUNT 8.4 K/mm3 (4.0-10.0)
[2018-03-15 08:48] LABS: ANION GAP 9 MMOL/L (8-16); BLOOD UREA NITROGEN 46 mg/dL (7-18); CALCIUM 8.4 mg/dL (8.5-10.1); CHLORIDE 103 mmol/L (98-107); CO2 26 mmol/L (21-32); CREATININE 2.1 mg/dL (0.55-1.3); GLUCOSE,RANDOM 124 mg/dL (74-106); POTASSIUM 4.2 mmol/L (3.5-5.1); SODIUM 138 mmol/L (136-145)
[2018-03-15] MEDS: TAMSULOSIN HCL 0.4 MG CAP PO SCH (09:33)
[2018-03-15] MEDS: ASPIRIN COATED 81 MG TABLET.EC PO SCH (09:33)
[2018-03-15] MEDS: CEPHALEXIN MONOHYDRATE 500 MG CAPSULE (UD) PO SCH ×2 (09:33→21:08)
[2018-03-15] MEDS: PANTOPRAZOLE 40 MG TABLET (FP) PO SCH (09:33)
[2018-03-15] MEDS ORDERED: PT OWN MED DRAWER 7, Y5N ONE (10:47)
--- NOTE | 2018-03-15 13:56 | PN ---
Progress Note (short form) - Note Progress Note: sitting in chair legs elevated patient reports improvement with respect to abdominal girth and EGAN more comfortable legs " less swollen" Vital Signs Period Temp Pulse Resp BP Sys/Whitehead Pulse Ox Last 24 Hr 97.6 F-98.3 F 58-73 15-20 135-152/64-79 neck supple heart s1/S2 lung clear bilat abd protuberant / soft / BS + Ext ++edema / firm bilat surgical scar Knees left foot cooler than right + pulses bilat CBC, BMP 03/15/18 07:30 03/15/18 07:30 CBC, BMP 03/14/18 06:10 03/14/18 06:10 Active Medications Aspirin (Ecotrin -) 162 mg PO DAILY [facility] Last Admin: 03/15/18 09:33 Dose: 162 mg Atorvastatin Calcium (Lipitor -) 40 mg PO HS [facility] Last Admin: 03/14/18 21:56 Dose: 40 mg Cephalexin HCl (Keflex -) 500 mg PO BID [facility] Last Admin: 03/15/18 09:33 Dose: 500 mg Furosemide (Lasix Injection -) 40 mg IVPUSH BID@0600,1400 [facility] Last Admin: 03/15/18 06:09 Dose: 40 mg Insulin Aspart (Novolog Vial) 15 units SQ TIDAC [facility] Last Admin: 03/15/18 12:18 Dose: 15 units Insulin Aspart (Novolog Vial Sliding Scale -) 1 vial SQ ACHS [facility]; Protocol Last Admin: 03/15/18 12:18 Dose: Not Given Pantoprazole Sodium (Protonix -) 40 mg PO DAILY [facility] Last Admin: 03/15/18 09:33 Dose: 40 mg Tamsulosin HCl (Flomax -) 0.4 mg PO DAILY@0830 [facility] Last Admin: 03/15/18 09:33 Dose: 0.4 mg # CHF fluid overload - responding to Lasix continue lasix continue to trend renal function daily weights # DM sliding scale ada diet / statins # CKD appreciate nephrology follow up renal function remains stable will continue management # BPH continue home meds Problem List - Problems (1) CHF exacerbation Code(s): I50.9 - HEART FAILURE, UNSPECIFIED (2) Acute on chronic diastolic (congestive) heart failure Code(s): I50.33 - ACUTE ON CHRONIC DIASTOLIC (CONGESTIVE) HEART FAILURE (3) CHF (congestive heart failure) Code(s): I50.9 - HEART FAILURE, UNSPECIFIED (4) CKD (chronic kidney disease) Code(s): N18.9 - CHRONIC KIDNEY DISEASE, UNSPECIFIED (5) Cellulitis, leg Code(s): L03.119 - CELLULITIS OF UNSPECIFIED PART OF LIMB (6) Diabetes Code(s): E11.9 - TYPE 2 DIABETES MELLITUS WITHOUT COMPLICATIONS Qualifiers: Diabetes mellitus jail insulin use: with hogshead salvage use Diabetes mellitus complication detail: with unspecified neuropathy (7) Electrolyte abnormality Code(s): E87.8 - OTH DISORDERS OF ELECTROLYTE AND FLUID BALANCE, NEC (8) HTN (hypertension) Code(s): I10 - ESSENTIAL (PRIMARY) HYPERTENSION (9) Hx of CABG Code(s): Z95.1 - PRESENCE OF AORTOCORONARY BYPASS GRAFT (10) Hyperlipidemia Code(s): E78.5 - HYPERLIPIDEMIA, UNSPECIFIED (11) Inflammatory arthritis Code(s): M19.90 - UNSPECIFIED OSTEOARTHRITIS, UNSPECIFIED SITE (12) Leg edema Code(s): R60.0 - LOCALIZED EDEMA (13) Musculoskeletal pain Code(s): M79.1 - MYALGIA * DO NOT USE * (14) Old myocardial infarction Code(s): I25.2 - OLD MYOCARDIAL INFARCTION (15) Sleep apnea Code(s): G47.30 - SLEEP APNEA, UNSPECIFIED (16) Spinal stenosis of lumbar region Code(s): M48.06 - SPINAL STENOSIS, LUMBAR REGION * DO NOT USE * (17) Swelling of joint, wrist, right Code(s): M25.431 - EFFUSION, RIGHT WRIST
[2018-03-15] MEDS: ATORVASTATIN CA 40 MG TABLET (FP) PO SCH (21:08)
[2018-03-16] MEDS: FUROSEMIDE 40 MG/4 ML INJECTABLE VIAL IVPUSH SCH ×2 (05:32→13:44)
[2018-03-16] MEDS: INSULIN SLIDING SCALE (NOVOLOG) 1 VIAL SQ SCH ×4 (06:27→21:41)
[2018-03-16] MEDS: INSULIN (NOVOLOG) ASPART 100 UNITS/ML 10ML VIAL SQ SCH ×3 (06:30→17:21)
[2018-03-16] MEDS: TAMSULOSIN HCL 0.4 MG CAP PO SCH (08:13)
[2018-03-16] MEDS: PANTOPRAZOLE 40 MG TABLET (FP) PO SCH (09:38)
[2018-03-16] MEDS: ASPIRIN COATED 81 MG TABLET.EC PO SCH (09:38)
[2018-03-16] MEDS: CEPHALEXIN MONOHYDRATE 500 MG CAPSULE (UD) PO SCH ×2 (09:39→21:08)
[2018-03-16] MEDS: ACETAMINOPHEN 325 MG TABLET (FP) PO PRN (15:18)
--- NOTE | 2018-03-16 16:24 | PN ---
Progress Note, Physician History of Present Illness: Pt seen and examined at bedside. He is awake and alert. He feels that his edema is slowly improving. - Current Medication List Current Medications: Active Medications Acetaminophen (Tylenol -) 650 mg PO Q4H PRN PRN Reason: PAIN Last Admin: 03/16/18 15:18 Dose: 650 mg Aspirin (Ecotrin -) 162 mg PO DAILY [facility] Last Admin: 03/16/18 09:38 Dose: 162 mg Atorvastatin Calcium (Lipitor -) 40 mg PO HS [facility] Last Admin: 03/15/18 21:08 Dose: 40 mg Cephalexin HCl (Keflex -) 500 mg PO BID [facility] Last Admin: 03/16/18 09:39 Dose: 500 mg Furosemide (Lasix Injection -) 40 mg IVPUSH BID@0600,1400 [facility] Last Admin: 03/16/18 13:44 Dose: 40 mg Insulin Aspart (Novolog Vial) 15 units SQ TIDAC [facility] Last Admin: 03/16/18 12:15 Dose: 15 units Insulin Aspart (Novolog Vial Sliding Scale -) 1 vial SQ ACHS [facility]; Protocol Last Admin: 03/16/18 12:09 Dose: Not Given Pantoprazole Sodium (Protonix -) 40 mg PO DAILY [facility] Last Admin: 03/16/18 09:38 Dose: 40 mg Tamsulosin HCl (Flomax -) 0.4 mg PO DAILY@0830 [facility] Last Admin: 03/16/18 08:13 Dose: 0.4 mg - Objective Vital Signs: Vital Signs Temperature 98.5 F 03/16/18 15:21 Pulse Rate 57 L 03/16/18 15:21 Respiratory Rate 20 03/16/18 15:21 Blood Pressure 152/60 03/16/18 15:21 O2 Sat by Pulse Oximetry (%) 96 03/16/18 09:00 Constitutional: Yes: Calm Eyes: Yes: Conjunctiva Clear HENT: Yes: Atraumatic Neck: Yes: Supple Cardiovascular: Yes: S1, S2 Respiratory: Yes: CTA Bilaterally Gastrointestinal: Yes: Normal Bowel Sounds, Soft, Abdomen, Obese Genitourinary: Yes: WNL Musculoskeletal: Yes: WNL Edema: Yes Edema: LLE: 2+, RLE: 2+ Neurological: Yes: Oriented Psychiatric: Yes: Oriented Labs: CBC, BMP 03/15/18 07:30 03/15/18 07:30 Problem List - Problems (1) CHF exacerbation Code(s): I50.9 - HEART FAILURE, UNSPECIFIED (2) CHF (congestive heart failure) Code(s): I50.9 - HEART FAILURE, UNSPECIFIED (3) CKD (chronic kidney disease) Code(s): N18.9 - CHRONIC KIDNEY DISEASE, UNSPECIFIED (4) HTN (hypertension) Code(s): I10 - ESSENTIAL (PRIMARY) HYPERTENSION (5) Morbid obesity Code(s): E66.01 - MORBID (SEVERE) OBESITY DUE TO EXCESS CALORIES Assessment/Plan Current Medications Generic Name Dose Route Start Last Admin Trade Name Freq PRN Reason Stop Dose Admin Acetaminophen 650 mg 03/16/18 15:09 03/16/18 15:18 Tylenol - PO 650 mg Q4H PRN Administration PAIN Aspirin 162 mg 03/12/18 10:00 03/16/18 09:38 Ecotrin - PO 162 mg DAILY [facility] Administration Atorvastatin Calcium 40 mg 03/12/18 22:00 03/15/18 21:08 Lipitor - PO 40 mg HS [facility] Administration Cephalexin HCl 500 mg 03/13/18 22:00 03/16/18 09:39 Keflex - PO 500 mg BID [facility] Administration Furosemide 40 mg 03/12/18 06:00 03/16/18 13:44 Lasix Injection - IVPUSH 40 mg BID@0600,1400 [facility] Administration Insulin Aspart 15 units 03/12/18 07:00 03/16/18 12:15 Novolog Vial SQ 15 units TIDAC [facility] Administration Insulin Aspart 1 vial 03/12/18 07:00 03/16/18 12:09 Novolog Vial Sliding Scale - SQ Not Given ACHS [facility] Protocol Pantoprazole Sodium 40 mg 03/12/18 10:00 03/16/18 09:38 Protonix - PO 40 mg DAILY [facility] Administration Tamsulosin HCl 0.4 mg 03/12/18 08:30 03/16/18 08:13 Flomax - PO 0.4 mg DAILY@0830 [facility] Administration Selected Entries 03/11/18 03/15/18 03/16/18 20:12 06:00 06:00 Weight 255 lb 247 lb 0.3 oz 251 lb Laboratory Tests 03/13/18 15:00 Protein/Creatinin Ratio 1.45 Impression 1. CKD 2. CHF 3. DM 4. obesity 5. HTN 6. dyspnea 7. HLD 8. CAD s/p cabg Plan - cont lasix - will give a dose of metolazone - pt still appears overloaded - discussed fluid intake - will need outpt follow up after discharge - will follow Dr Omer
[2018-03-16] MEDS ORDERED: METOLAZONE 5 MG TABLET PO ONE (16:30)
--- NOTE | 2018-03-16 18:06 | PN ---
Progress Note (short form) - Note Progress Note: - Consultation Consultation Note: cc: sob, le edema s: le edema and sob improving, still sob when walking to bathroom. no chest pain , palps, dizzy, lightheadedness Current Medications Acetaminophen (Tylenol -) 650 mg PO Q4H PRN PRN Reason: PAIN Last Admin: 03/16/18 15:18 Dose: 650 mg Aspirin (Ecotrin -) 162 mg PO DAILY [facility] Last Admin: 03/16/18 09:38 Dose: 162 mg Atorvastatin Calcium (Lipitor -) 40 mg PO HS [facility] Last Admin: 03/15/18 21:08 Dose: 40 mg Cephalexin HCl (Keflex -) 500 mg PO BID [facility] Last Admin: 03/16/18 09:39 Dose: 500 mg Furosemide (Lasix Injection -) 40 mg IVPUSH BID@0600,1400 [facility] Last Admin: 03/16/18 13:44 Dose: 40 mg Insulin Aspart (Novolog Vial) 15 units SQ TIDAC [facility] Last Admin: 03/16/18 17:21 Dose: 15 units Insulin Aspart (Novolog Vial Sliding Scale -) 1 vial SQ ACHS [facility]; Protocol Last Admin: 03/16/18 16:31 Dose: Not Given Metolazone (Zaroxolyn -) 2.5 mg PO ONCE ONE Stop: 03/17/18 05:31 Pantoprazole Sodium (Protonix -) 40 mg PO DAILY [facility] Last Admin: 03/16/18 09:38 Dose: 40 mg Tamsulosin HCl (Flomax -) 0.4 mg PO DAILY@0830 [facility] Last Admin: 03/16/18 08:13 Dose: 0.4 mg Vital Signs Period Temp Pulse Resp BP Sys/Whitehead Pulse Ox Last 24 Hr 97.6 F-98.3 F 55-92 18-20 141-169/74-89 95-100 nad no jvd rrr s1s2 no mrg cta bl nl eff + rales L base aaox3 1+le edema bl, cellulitis appearance bl shins/feet abd nt nd pos bs no jaundice diaphoresis pos dp pt no carotid bruits cxr: clear lungs echo 06/2017: mild dec lvef, nl rv, mild mr, mild-mod tr, rvsp 40-50, mild ar, mild pr ecg: sr, pvcs, mobitz 1, old rbbb a/p: 77 m hx cad, mi x2, cabg 2012, pci x2 2017, mobitz I, dchf, copd, dm, htn , hld, ckd here with sob, le edema. sob,acute diastolic chf: -no signs acs -pt was on lasix 80 qd at home -improving with lasix 40 iv bid, continue, metolazone x 1 today per renal - daily chem7, wts, I/O cad: -stable, no signs acs -cont asa, statin abnl ecg, akiraitz 1: -chronic finding htn: -stable hld: -cont statin ckd: -cr at baseline, monitor with lasix
[2018-03-16] MEDS: ATORVASTATIN CA 40 MG TABLET (FP) PO SCH (21:08)
--- NOTE | 2018-03-16 23:18 | PN ---
Progress Note (short form) - Note Progress Note: sitting in chair legs elevated patient reports improvement with respect to abdominal girth and EGAN more comfortable legs " less swollen" Vital Signs Period Temp Pulse Resp BP Sys/Whitehead Pulse Ox Last 24 Hr 97.6 F-98.3 F 58-73 15-20 135-152/64-79 neck supple heart s1/S2 lung clear bilat abd protuberant / soft / BS + Ext ++edema / firm bilat surgical scar Knees left foot cooler than right + pulses bilat CBC, BMP 03/15/18 07:30 03/15/18 07:30 Active Medications Acetaminophen (Tylenol -) 650 mg PO Q4H PRN PRN Reason: PAIN Last Admin: 03/16/18 15:18 Dose: 650 mg Aspirin (Ecotrin -) 162 mg PO DAILY [facility] Last Admin: 03/16/18 09:38 Dose: 162 mg Atorvastatin Calcium (Lipitor -) 40 mg PO HS [facility] Last Admin: 03/16/18 21:08 Dose: 40 mg Cephalexin HCl (Keflex -) 500 mg PO BID [facility] Last Admin: 03/16/18 21:08 Dose: 500 mg Furosemide (Lasix Injection -) 40 mg IVPUSH BID@0600,1400 [facility] Last Admin: 03/16/18 13:44 Dose: 40 mg Insulin Aspart (Novolog Vial) 15 units SQ TIDAC [facility] Last Admin: 03/16/18 17:21 Dose: 15 units Insulin Aspart (Novolog Vial Sliding Scale -) 1 vial SQ ACHS [facility]; Protocol Last Admin: 03/16/18 21:41 Dose: Not Given Metolazone (Zaroxolyn -) 2.5 mg PO ONCE ONE Stop: 03/17/18 05:31 Pantoprazole Sodium (Protonix -) 40 mg PO DAILY [facility] Last Admin: 03/16/18 09:38 Dose: 40 mg Tamsulosin HCl (Flomax -) 0.4 mg PO DAILY@0830 [facility] Last Admin: 03/16/18 08:13 Dose: 0.4 mg # CHF fluid overload - responding to Lasix continue lasix continue to trend renal function daily weights # DM sliding scale ada diet / statins # CKD appreciate nephrology follow up renal function remains stable will continue management # BPH continue home meds Problem List - Problems (1) CHF exacerbation Code(s): I50.9 - HEART FAILURE, UNSPECIFIED (2) Acute on chronic diastolic (congestive) heart failure Code(s): I50.33 - ACUTE ON CHRONIC DIASTOLIC (CONGESTIVE) HEART FAILURE (3) CHF (congestive heart failure) Code(s): I50.9 - HEART FAILURE, UNSPECIFIED (4) CKD (chronic kidney disease) Code(s): N18.9 - CHRONIC KIDNEY DISEASE, UNSPECIFIED (5) Cellulitis, leg Code(s): L03.119 - CELLULITIS OF UNSPECIFIED PART OF LIMB (6) Diabetes Code(s): E11.9 - TYPE 2 DIABETES MELLITUS WITHOUT COMPLICATIONS Qualifiers: Diabetes mellitus residential insulin use: with cat cracker operator use Diabetes mellitus complication detail: with unspecified neuropathy (7) Electrolyte abnormality Code(s): E87.8 - OTH DISORDERS OF ELECTROLYTE AND FLUID BALANCE, NEC (8) HTN (hypertension) Code(s): I10 - ESSENTIAL (PRIMARY) HYPERTENSION (9) Hx of CABG Code(s): Z95.1 - PRESENCE OF AORTOCORONARY BYPASS GRAFT (10) Hyperlipidemia Code(s): E78.5 - HYPERLIPIDEMIA, UNSPECIFIED (11) Inflammatory arthritis Code(s): M19.90 - UNSPECIFIED OSTEOARTHRITIS, UNSPECIFIED SITE (12) Leg edema Code(s): R60.0 - LOCALIZED EDEMA (13) Musculoskeletal pain Code(s): M79.1 - MYALGIA * DO NOT USE * (14) Old myocardial infarction Code(s): I25.2 - OLD MYOCARDIAL INFARCTION (15) Sleep apnea Code(s): G47.30 - SLEEP APNEA, UNSPECIFIED (16) Spinal stenosis of lumbar region Code(s): M48.06 - SPINAL STENOSIS, LUMBAR REGION * DO NOT USE * (17) Swelling of joint, wrist, right Code(s): M25.431 - EFFUSION, RIGHT WRIST
[2018-03-17] MEDS ORDERED: METOLAZONE 5 MG TABLET PO ONE ×2 (05:30→13:36)
[2018-03-17] MEDS: INSULIN SLIDING SCALE (NOVOLOG) 1 VIAL SQ SCH ×4 (05:59→21:55)
[2018-03-17] MEDS: FUROSEMIDE 40 MG/4 ML INJECTABLE VIAL IVPUSH SCH ×2 (06:00→14:39)
[2018-03-17] MEDS: INSULIN (NOVOLOG) ASPART 100 UNITS/ML 10ML VIAL SQ SCH ×3 (06:44→16:59)
[2018-03-17] MEDS: TAMSULOSIN HCL 0.4 MG CAP PO SCH (07:41)
[2018-03-17 08:06] LABS: BASO % 0.5 % (0-2.0); EOS % 1.7 % (0-4.5); HEMOGLOBIN 10.2 GM/dL (11.7-16.9); LYMPH % 9.9 % (8-40); MEAN CELL VOLUME 80.7 fl (80-96); MEAN PLT VOLUME 8.8 fl (7.5-11.1); MONO % 6.6 % (3.8-10.2); NEUT % 81.3 % (42.8-82.8); PLATELET COUNT 188 K/MM3 (134-434); RBC 4.09 M/mm3 (4.00-5.60); RDW 16.5 % (11.9-15.9); WHITE BLOOD COUNT 8.3 K/mm3 (4.0-10.0)
[2018-03-17 08:26] LABS: ALBUMIN 2.9 g/dl (3.4-5.0); ALK PHOS 108 U/L (45-117); ANION GAP 10 MMOL/L (8-16); BILIRUBIN,TOTAL 0.7 mg/dL (0.2-1); BLOOD UREA NITROGEN 43 mg/dL (7-18); CALCIUM 8.3 mg/dL (8.5-10.1); CHLORIDE 103 mmol/L (98-107); CO2 26 mmol/L (21-32); GLUCOSE,RANDOM 150 mg/dL (74-106); POTASSIUM 4.1 mmol/L (3.5-5.1); SGOT/AST 11 U/L (15-37); SGPT/ALT 10 U/L (13-61); SODIUM 138 mmol/L (136-145); TOT PROT 6.7 g/dl (6.4-8.2)
[2018-03-17] MEDS: CEPHALEXIN MONOHYDRATE 500 MG CAPSULE (UD) PO SCH ×2 (09:34→21:49)
[2018-03-17] MEDS: ASPIRIN COATED 81 MG TABLET.EC PO SCH (09:34)
[2018-03-17] MEDS: PANTOPRAZOLE 40 MG TABLET (FP) PO SCH (09:34)
--- NOTE | 2018-03-17 13:36 | PN ---
Progress Note, Physician History of Present Illness: Pt seen and examined at bedside. He is awake and alert. He still complains of lower ext edema. - Current Medication List Current Medications: Active Medications Acetaminophen (Tylenol -) 650 mg PO Q4H PRN PRN Reason: PAIN Last Admin: 03/16/18 15:18 Dose: 650 mg Aspirin (Ecotrin -) 162 mg PO DAILY [facility] Last Admin: 03/17/18 09:34 Dose: 162 mg Atorvastatin Calcium (Lipitor -) 40 mg PO HS [facility] Last Admin: 03/16/18 21:08 Dose: 40 mg Cephalexin HCl (Keflex -) 500 mg PO BID [facility] Last Admin: 03/17/18 09:34 Dose: 500 mg Furosemide (Lasix Injection -) 40 mg IVPUSH BID@0600,1400 [facility] Last Admin: 03/17/18 06:00 Dose: 40 mg Insulin Aspart (Novolog Vial) 15 units SQ TIDAC [facility] Last Admin: 03/17/18 11:20 Dose: 15 units Insulin Aspart (Novolog Vial Sliding Scale -) 1 vial SQ ACHS [facility]; Protocol Last Admin: 03/17/18 11:20 Dose: 2 units Pantoprazole Sodium (Protonix -) 40 mg PO DAILY [facility] Last Admin: 03/17/18 09:34 Dose: 40 mg Tamsulosin HCl (Flomax -) 0.4 mg PO DAILY@0830 [facility] Last Admin: 03/17/18 07:41 Dose: 0.4 mg - Objective Vital Signs: Vital Signs Temperature 98.7 F 03/17/18 05:55 Pulse Rate 56 L 03/17/18 05:55 Respiratory Rate 20 03/17/18 09:00 Blood Pressure 134/69 03/17/18 05:55 O2 Sat by Pulse Oximetry (%) 94 L 03/17/18 09:00 Constitutional: Yes: Calm Eyes: Yes: Conjunctiva Clear HENT: Yes: Atraumatic Neck: Yes: Supple Cardiovascular: Yes: S1, S2 Respiratory: Yes: CTA Bilaterally Gastrointestinal: Yes: Soft, Abdomen, Obese Genitourinary: Yes: WNL Edema: Yes Edema: LLE: 2+, RLE: 2+ Neurological: Yes: Oriented Psychiatric: Yes: Oriented Labs: CBC, BMP 03/17/18 07:10 03/17/18 07:10 Problem List - Problems (1) CHF exacerbation Code(s): I50.9 - HEART FAILURE, UNSPECIFIED (2) CHF (congestive heart failure) Code(s): I50.9 - HEART FAILURE, UNSPECIFIED (3) CKD (chronic kidney disease) Code(s): N18.9 - CHRONIC KIDNEY DISEASE, UNSPECIFIED (4) HTN (hypertension) Code(s): I10 - ESSENTIAL (PRIMARY) HYPERTENSION (5) Morbid obesity Code(s): E66.01 - MORBID (SEVERE) OBESITY DUE TO EXCESS CALORIES Assessment/Plan Current Medications Generic Name Dose Route Start Last Admin Trade Name Freq PRN Reason Stop Dose Admin Acetaminophen 650 mg 03/16/18 15:09 03/16/18 15:18 Tylenol - PO 650 mg Q4H PRN Administration PAIN Aspirin 162 mg 03/12/18 10:00 03/17/18 09:34 Ecotrin - PO 162 mg DAILY [facility] Administration Atorvastatin Calcium 40 mg 03/12/18 22:00 03/16/18 21:08 Lipitor - PO 40 mg HS [facility] Administration Cephalexin HCl 500 mg 03/13/18 22:00 03/17/18 09:34 Keflex - PO 500 mg BID [facility] Administration Furosemide 40 mg 03/12/18 06:00 03/17/18 06:00 Lasix Injection - IVPUSH 40 mg BID@0600,1400 [facility] Administration Insulin Aspart 15 units 03/12/18 07:00 03/17/18 11:20 Novolog Vial SQ 15 units TIDAC [facility] Administration Insulin Aspart 1 vial 03/12/18 07:00 03/17/18 11:20 Novolog Vial Sliding Scale - SQ 2 units ACHS [facility] Administration Protocol Pantoprazole Sodium 40 mg 03/12/18 10:00 03/17/18 09:34 Protonix - PO 40 mg DAILY [facility] Administration Tamsulosin HCl 0.4 mg 03/12/18 08:30 03/17/18 07:41 Flomax - PO 0.4 mg DAILY@0830 [facility] Administration Impression 1. CKD 2. CHF 3. DM 4. obesity 5. HTN 6. dyspnea 7. HLD 8. CAD s/p cabg Plan - will give another dose of metolazone - cont with lasix - repeat labs in am - daily weights - still volume overloaded - will need outpt follow up after discharge - will follow Dr Omer
--- NOTE | 2018-03-17 17:09 | PN ---
Progress Note, Physician Chief Complaint: sob, swelling History of Present Illness: still a little sob. a little cp when coughs a lot. legs still swollen no palpitations - Current Medication List Current Medications: Active Medications Acetaminophen (Tylenol -) 650 mg PO Q4H PRN PRN Reason: PAIN Last Admin: 03/16/18 15:18 Dose: 650 mg Aspirin (Ecotrin -) 162 mg PO DAILY [facility] Last Admin: 03/17/18 09:34 Dose: 162 mg Atorvastatin Calcium (Lipitor -) 40 mg PO HS [facility] Last Admin: 03/16/18 21:08 Dose: 40 mg Cephalexin HCl (Keflex -) 500 mg PO BID [facility] Last Admin: 03/17/18 09:34 Dose: 500 mg Furosemide (Lasix Injection -) 40 mg IVPUSH BID@0600,1400 [facility] Last Admin: 03/17/18 14:39 Dose: 40 mg Insulin Aspart (Novolog Vial) 15 units SQ TIDAC [facility] Last Admin: 03/17/18 16:59 Dose: 15 units Insulin Aspart (Novolog Vial Sliding Scale -) 1 vial SQ ACHS [facility]; Protocol Last Admin: 03/17/18 16:56 Dose: Not Given Pantoprazole Sodium (Protonix -) 40 mg PO DAILY [facility] Last Admin: 03/17/18 09:34 Dose: 40 mg Tamsulosin HCl (Flomax -) 0.4 mg PO DAILY@0830 [facility] Last Admin: 03/17/18 07:41 Dose: 0.4 mg - Objective Vital Signs: Vital Signs Temperature 98.4 F 03/17/18 14:00 Pulse Rate 51 L 03/17/18 14:00 Respiratory Rate 18 03/17/18 14:00 Blood Pressure 126/59 L 03/17/18 14:00 O2 Sat by Pulse Oximetry (%) 94 L 03/17/18 09:00 Constitutional: Yes: Well Nourished, No Distress, Calm Cardiovascular: Yes: Regular Rate and Rhythm, S1, S2. No: JVD (very tds neck habitus), Gallop, Murmur Respiratory: Yes: Regular, CTA Bilaterally. No: Accessory Muscle Use, Rales, Wheezes Extremities: No: Cold Edema: Yes (1+ pretib) Neurological: Yes: Alert. No: Seizure Psychiatric: No: Agitated Labs: CBC, BMP 03/17/18 07:10 03/17/18 07:10 Assessment/Plan cxr: clear lungs echo 06/2017: mild dec lvef, nl rv, mild mr, mild-mod tr, rvsp 40-50, mild ar, mild pr ecg: sr, pvcs, mobitz 1, old rbbb a/p: 77 m hx cad, mi x2, cabg 2012, pci x2 2016, mobitz I, dchf, copd, dm, htn , hld, ckd here with sob, le edema. sob,acute diastolic chf: -no signs acs -pt was on lasix 80 qd at home -improving with lasix 40 iv bid, prn metolazone 03/16 and 03/17 -remains overloaded today, reassess in am, consider increase lasix to 80 iv bid cad: -stable, no signs acs -cont asa, statin abnl ecg, mobitz 1: -chronic finding htn: -stable -same plan hld: -cont statin ckd: -baseline creat 1.8-2.2 -renal fxn stable here, continue to monitor with lasix
--- NOTE | 2018-03-17 21:18 | PN ---
Progress Note (short form) - Note Progress Note: seen ambulating in room - remains with marked EGAN patient reports improvement with respect to abdominal girth and EGAN states more comfortable legs " less swollen" Vital Signs Period Temp Pulse Resp BP Sys/Whitehead Pulse Ox Last 24 Hr 97.6 F-98.3 F 58-73 15-20 135-152/64-79 neck supple heart s1/S2 lung clear bilat / rles at bases abd protuberant / soft / BS + Ext ++edema / firm bilat surgical scar Knees left foot cooler than right + pulses bilat CBC, BMP 03/17/18 07:10 03/17/18 07:10 CBC, BMP 03/15/18 07:30 03/15/18 07:30 cxr: clear lungs echo 06/2017: mild dec lvef, nl rv, mild mr, mild-mod tr, rvsp 40-50, mild ar, mild pr ecg: sr, pvcs, mobitz 1, old rbbb Active Medications Acetaminophen (Tylenol -) 650 mg PO Q4H PRN PRN Reason: PAIN Last Admin: 03/16/18 15:18 Dose: 650 mg Aspirin (Ecotrin -) 162 mg PO DAILY [facility] Last Admin: 03/17/18 09:34 Dose: 162 mg Atorvastatin Calcium (Lipitor -) 40 mg PO HS [facility] Last Admin: 03/16/18 21:08 Dose: 40 mg Cephalexin HCl (Keflex -) 500 mg PO BID [facility] Last Admin: 03/17/18 09:34 Dose: 500 mg Furosemide (Lasix Injection -) 60 mg IVPUSH BID@0600,1400 [facility] Insulin Aspart (Novolog Vial) 15 units SQ TIDAC [facility] Last Admin: 03/17/18 16:59 Dose: 15 units Insulin Aspart (Novolog Vial Sliding Scale -) 1 vial SQ ACHS [facility]; Protocol Last Admin: 03/17/18 16:56 Dose: Not Given Pantoprazole Sodium (Protonix -) 40 mg PO DAILY [facility] Last Admin: 03/17/18 09:34 Dose: 40 mg Tamsulosin HCl (Flomax -) 0.4 mg PO DAILY@0830 [facility] Last Admin: 03/17/18 07:41 Dose: 0.4 mg c a/p: 77 m hx cad, mi x2, cabg 2012, pci x2 2016, mobitz I, dchf, copd, dm, htn , hld, ckd here with sob, le edema. sob,acute diastolic chf: -no signs acs -pt was on lasix 80 qd at home -improving with lasix 40 iv bid, prn metolazone 03/16 and 03/17 -remains overloaded today, reassess in am, consider increase lasix to 80 iv bid c # CHF acute diastolic fluid overload - responding to Lasix continue lasix - appreciate cardio not -- will inc to 60 mg bid had been on 80 mg at home continue to trend renal function daily weights - weight seems unreliable # DM sliding scale ada diet / statins # CKD appreciate nephrology follow up renal function remains stable will increase lasix # BPH continue home meds Problem List - Problems (1) CHF exacerbation Code(s): I50.9 - HEART FAILURE, UNSPECIFIED (2) Acute on chronic diastolic (congestive) heart failure Code(s): I50.33 - ACUTE ON CHRONIC DIASTOLIC (CONGESTIVE) HEART FAILURE (3) CHF (congestive heart failure) Code(s): I50.9 - HEART FAILURE, UNSPECIFIED (4) CKD (chronic kidney disease) Code(s): N18.9 - CHRONIC KIDNEY DISEASE, UNSPECIFIED (5) Cellulitis, leg Code(s): L03.119 - CELLULITIS OF UNSPECIFIED PART OF LIMB (6) Diabetes Code(s): E11.9 - TYPE 2 DIABETES MELLITUS WITHOUT COMPLICATIONS Qualifiers: Diabetes mellitus nursing home insulin use: 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 Diabetes mellitus complication detail: with unspecified neuropathy (7) Electrolyte abnormality Code(s): E87.8 - OTH DISORDERS OF ELECTROLYTE AND FLUID BALANCE, NEC (8) HTN (hypertension) Code(s): I10 - ESSENTIAL (PRIMARY) HYPERTENSION (9) Hx of CABG Code(s): Z95.1 - PRESENCE OF AORTOCORONARY BYPASS GRAFT (10) Hyperlipidemia Code(s): E78.5 - HYPERLIPIDEMIA, UNSPECIFIED (11) Inflammatory arthritis Code(s): M19.90 - UNSPECIFIED OSTEOARTHRITIS, UNSPECIFIED SITE (12) Leg edema Code(s): R60.0 - LOCALIZED EDEMA (13) Musculoskeletal pain Code(s): M79.1 - MYALGIA * DO NOT USE * (14) Old myocardial infarction Code(s): I25.2 - OLD MYOCARDIAL INFARCTION (15) Sleep apnea Code(s): G47.30 - SLEEP APNEA, UNSPECIFIED (16) Spinal stenosis of lumbar region Code(s): M48.06 - SPINAL STENOSIS, LUMBAR REGION * DO NOT USE * (17) Swelling of joint, wrist, right Code(s): M25.431 - EFFUSION, RIGHT WRIST
[2018-03-17] MEDS ORDERED: INSULIN (NOVOLOG) ASPART 100 UNITS/ML 10ML VIAL ONE (21:34)
[2018-03-17] MEDS: ACETAMINOPHEN 325 MG TABLET (FP) PO PRN (21:48)
[2018-03-17] MEDS: ATORVASTATIN CA 40 MG TABLET (FP) PO SCH (21:49)
[2018-03-18] MEDS: INSULIN (NOVOLOG) ASPART 100 UNITS/ML 10ML VIAL SQ SCH ×3 (06:02→17:08)
[2018-03-18] MEDS: INSULIN SLIDING SCALE (NOVOLOG) 1 VIAL SQ SCH ×4 (06:05→21:39)
[2018-03-18] MEDS: FUROSEMIDE 40 MG/4 ML INJECTABLE VIAL IVPUSH SCH ×2 (06:06→14:18)
[2018-03-18] MEDS: TAMSULOSIN HCL 0.4 MG CAP PO SCH (08:00)
[2018-03-18 08:23] LABS: ALBUMIN 2.9 g/dl (3.4-5.0); ALK PHOS 112 U/L (45-117); ANION GAP 10 MMOL/L (8-16); BILIRUBIN,TOTAL 0.6 mg/dL (0.2-1); BLOOD UREA NITROGEN 47 mg/dL (7-18); CALCIUM 8.5 mg/dL (8.5-10.1); CHLORIDE 100 mmol/L (98-107); CO2 28 mmol/L (21-32); CREATININE 2.2 mg/dL (0.55-1.3); GLUCOSE,RANDOM 146 mg/dL (74-106); POTASSIUM 3.5 mmol/L (3.5-5.1); SGOT/AST 10 U/L (15-37); SGPT/ALT 11 U/L (13-61); SODIUM 137 mmol/L (136-145); TOT PROT 6.9 g/dl (6.4-8.2)
[2018-03-18] MEDS: ASPIRIN COATED 81 MG TABLET.EC PO SCH (11:56)
[2018-03-18] MEDS: CEPHALEXIN MONOHYDRATE 500 MG CAPSULE (UD) PO SCH ×2 (11:56→21:35)
[2018-03-18] MEDS: PANTOPRAZOLE 40 MG TABLET (FP) PO SCH (11:56)
[2018-03-18] MEDS ORDERED: SPIRONOLACTONE 25 MG TABLET (FP) PO ONE ×2 (12:20→14:15)
--- NOTE | 2018-03-18 12:20 | PN ---
Progress Note, Physician History of Present Illness: Pt seen and examined at bedside. He is awake and alert. He does not feel that the edema is any better. - Current Medication List Current Medications: Active Medications Acetaminophen (Tylenol -) 650 mg PO Q4H PRN PRN Reason: PAIN Last Admin: 03/17/18 21:48 Dose: 650 mg Aspirin (Ecotrin -) 162 mg PO DAILY [facility] Last Admin: 03/18/18 11:56 Dose: 162 mg Atorvastatin Calcium (Lipitor -) 40 mg PO HS [facility] Last Admin: 03/17/18 21:49 Dose: 40 mg Cephalexin HCl (Keflex -) 500 mg PO BID [facility] Last Admin: 03/18/18 11:56 Dose: 500 mg Furosemide (Lasix Injection -) 60 mg IVPUSH BID@0600,1400 [facility] Last Admin: 03/18/18 06:06 Dose: 60 mg Insulin Aspart (Novolog Vial) 15 units SQ TIDAC [facility] Last Admin: 03/18/18 11:56 Dose: 15 units Insulin Aspart (Novolog Vial Sliding Scale -) 1 vial SQ ACHS [facility]; Protocol Last Admin: 03/18/18 11:57 Dose: Not Given Pantoprazole Sodium (Protonix -) 40 mg PO DAILY [facility] Last Admin: 03/18/18 11:56 Dose: 40 mg Tamsulosin HCl (Flomax -) 0.4 mg PO DAILY@0830 [facility] Last Admin: 03/18/18 08:00 Dose: 0.4 mg - Objective Vital Signs: Vital Signs Temperature 98.9 F 03/18/18 05:30 Pulse Rate 71 03/18/18 05:30 Respiratory Rate 20 03/18/18 05:30 Blood Pressure 131/69 03/18/18 05:30 O2 Sat by Pulse Oximetry (%) 94 L 03/17/18 21:00 Constitutional: Yes: Calm Eyes: Yes: Conjunctiva Clear HENT: Yes: Atraumatic Neck: Yes: Supple Cardiovascular: Yes: S1, S2 Respiratory: Yes: Rhonchi Gastrointestinal: Yes: Soft Genitourinary: Yes: WNL Musculoskeletal: Yes: WNL Edema: Yes Edema: LLE: 2+, RLE: 2+ Neurological: Yes: Oriented Psychiatric: Yes: Oriented Labs: CBC, BMP 03/17/18 07:10 03/18/18 06:50 Problem List - Problems (1) CHF exacerbation Code(s): I50.9 - HEART FAILURE, UNSPECIFIED (2) CHF (congestive heart failure) Code(s): I50.9 - HEART FAILURE, UNSPECIFIED (3) CKD (chronic kidney disease) Code(s): N18.9 - CHRONIC KIDNEY DISEASE, UNSPECIFIED (4) HTN (hypertension) Code(s): I10 - ESSENTIAL (PRIMARY) HYPERTENSION (5) Morbid obesity Code(s): E66.01 - MORBID (SEVERE) OBESITY DUE TO EXCESS CALORIES Assessment/Plan Current Medications Generic Name Dose Route Start Last Admin Trade Name Freq PRN Reason Stop Dose Admin Acetaminophen 650 mg 03/16/18 15:09 03/17/18 21:48 Tylenol - PO 650 mg Q4H PRN Administration PAIN Aspirin 162 mg 03/12/18 10:00 03/18/18 11:56 Ecotrin - PO 162 mg DAILY [facility] Administration Atorvastatin Calcium 40 mg 03/12/18 22:00 03/17/18 21:49 Lipitor - PO 40 mg HS [facility] Administration Cephalexin HCl 500 mg 03/13/18 22:00 03/18/18 11:56 Keflex - PO 500 mg BID [facility] Administration Furosemide 60 mg 03/17/18 21:16 03/18/18 06:06 Lasix Injection - IVPUSH 60 mg BID@0600,1400 [facility] Administration Insulin Aspart 15 units 03/12/18 07:00 03/18/18 11:56 Novolog Vial SQ 15 units TIDAC [facility] Administration Insulin Aspart 1 vial 03/12/18 07:00 03/18/18 11:57 Novolog Vial Sliding Scale - SQ Not Given ACHS [facility] Protocol Pantoprazole Sodium 40 mg 03/12/18 10:00 03/18/18 11:56 Protonix - PO 40 mg DAILY [facility] Administration Tamsulosin HCl 0.4 mg 03/12/18 08:30 03/18/18 08:00 Flomax - PO 0.4 mg DAILY@0830 [facility] Administration Impression 1. CKD 2. CHF 3. DM 4. obesity 5. HTN 6. dyspnea 7. HLD 8. CAD s/p cabg Plan - cont with lasix, agree with increasing dose - will give a dose of spironolactone - cardio input appreciated - discussed with medical attending - daily weights - volume status appears the same - will need outpt follow up after discharge - will follow Dr Omer
--- NOTE | 2018-03-18 12:34 | PN ---
Progress Note (short form) - Note Progress Note: sitting in lobby - remains with marked EGAN states more comfortable legs " less swollen" but remain painful and swollen Vital Signs Period Temp Pulse Resp BP Sys/Whitehead Pulse Ox Last 24 Hr 97.6 F-98.3 F 58-73 15-20 135-152/64-79 neck supple heart s1/S2 lung clear bilat / rles at bases abd protuberant / soft / BS + Ext +edema / firm bilat surgical scar Knees left foot cooler than right + pulses bilat CBC, BMP 03/17/18 07:10 03/17/18 07:10 CBC, BMP 03/15/18 07:30 03/15/18 07:30 cxr: clear lungs echo 06/2017: mild dec lvef, nl rv, mild mr, mild-mod tr, rvsp 40-50, mild ar, mild pr ecg: sr, pvcs, mobitz 1, old rbbb Active Medications Acetaminophen (Tylenol -) 650 mg PO Q4H PRN PRN Reason: PAIN Last Admin: 03/16/18 15:18 Dose: 650 mg Aspirin (Ecotrin -) 162 mg PO DAILY [facility] Last Admin: 03/17/18 09:34 Dose: 162 mg Atorvastatin Calcium (Lipitor -) 40 mg PO HS [facility] Last Admin: 03/16/18 21:08 Dose: 40 mg Cephalexin HCl (Keflex -) 500 mg PO BID [facility] Last Admin: 03/17/18 09:34 Dose: 500 mg Furosemide (Lasix Injection -) 60 mg IVPUSH BID@0600,1400 [facility] Insulin Aspart (Novolog Vial) 15 units SQ TIDAC [facility] Last Admin: 03/17/18 16:59 Dose: 15 units Insulin Aspart (Novolog Vial Sliding Scale -) 1 vial SQ ACHS [facility]; Protocol Last Admin: 03/17/18 16:56 Dose: Not Given Pantoprazole Sodium (Protonix -) 40 mg PO DAILY [facility] Last Admin: 03/17/18 09:34 Dose: 40 mg Tamsulosin HCl (Flomax -) 0.4 mg PO DAILY@0830 [facility] Last Admin: 03/17/18 07:41 Dose: 0.4 mg # CHF acute diastolic fluid overload - responding to Lasix continue lasix - appreciate cardio not -- will inc to 60 mg bid had been on 80 mg at home continue to trend renal function daily weights - weight seems unreliable # DM sliding scale ada diet / statins # CKD appreciate nephrology follow up renal function remains stable will increase lasix # BPH continue home meds Problem List - Problems (1) CHF exacerbation Code(s): I50.9 - HEART FAILURE, UNSPECIFIED (2) Acute on chronic diastolic (congestive) heart failure Code(s): I50.33 - ACUTE ON CHRONIC DIASTOLIC (CONGESTIVE) HEART FAILURE (3) CHF (congestive heart failure) Code(s): I50.9 - HEART FAILURE, UNSPECIFIED (4) CKD (chronic kidney disease) Code(s): N18.9 - CHRONIC KIDNEY DISEASE, UNSPECIFIED (5) Cellulitis, leg Code(s): L03.119 - CELLULITIS OF UNSPECIFIED PART OF LIMB (6) Diabetes Code(s): E11.9 - TYPE 2 DIABETES MELLITUS WITHOUT COMPLICATIONS Qualifiers: Diabetes mellitus long-term insulin use: with long-term use Diabetes mellitus complication detail: with unspecified neuropathy (7) Electrolyte abnormality Code(s): E87.8 - OTH DISORDERS OF ELECTROLYTE AND FLUID BALANCE, NEC (8) HTN (hypertension) Code(s): I10 - ESSENTIAL (PRIMARY) HYPERTENSION (9) Hx of CABG Code(s): Z95.1 - PRESENCE OF AORTOCORONARY BYPASS GRAFT (10) Hyperlipidemia Code(s): E78.5 - HYPERLIPIDEMIA, UNSPECIFIED (11) Inflammatory arthritis Code(s): M19.90 - UNSPECIFIED OSTEOARTHRITIS, UNSPECIFIED SITE (12) Leg edema Code(s): R60.0 - LOCALIZED EDEMA (13) Musculoskeletal pain Code(s): M79.1 - MYALGIA * DO NOT USE * (14) Old myocardial infarction Code(s): I25.2 - OLD MYOCARDIAL INFARCTION (15) Sleep apnea Code(s): G47.30 - SLEEP APNEA, UNSPECIFIED (16) Spinal stenosis of lumbar region Code(s): M48.06 - SPINAL STENOSIS, LUMBAR REGION * DO NOT USE * (17) Swelling of joint, wrist, right Code(s): M25.431 - EFFUSION, RIGHT WRIST
--- NOTE | 2018-03-18 14:06 | PN ---
Progress Note (short form) - Note Progress Note: Chief Complaint: sob, swelling History of Present Illness: sob better no cp legs still swollen but less no palpitations - Current Medication List Current Medications Generic Name Dose Route Start Last Admin Trade Name [place] PRN Reason Stop Dose Admin Acetaminophen 650 mg 03/16/18 15:09 03/17/18 21:48 Tylenol - PO 650 mg Q4H PRN Administration PAIN Aspirin 162 mg 03/12/18 10:00 03/18/18 11:56 Ecotrin - PO 162 mg DAILY [facility] Administration Atorvastatin Calcium 40 mg 03/12/18 22:00 03/17/18 21:49 Lipitor - PO 40 mg HS [facility] Administration Cephalexin HCl 500 mg 03/13/18 22:00 03/18/18 11:56 Keflex - PO 500 mg BID [facility] Administration Furosemide 60 mg 03/17/18 21:16 03/18/18 06:06 Lasix Injection - IVPUSH 60 mg BID@0600,1400 [facility] Administration Insulin Aspart 15 units 03/12/18 07:00 03/18/18 11:56 Novolog Vial SQ 15 units TIDAC [facility] Administration Insulin Aspart 1 vial 03/12/18 07:00 03/18/18 11:57 Novolog Vial Sliding Scale - SQ Not Given ACHS [facility] Protocol Pantoprazole Sodium 40 mg 03/12/18 10:00 03/18/18 11:56 Protonix - PO 40 mg DAILY [facility] Administration Tamsulosin HCl 0.4 mg 03/12/18 08:30 03/18/18 08:00 Flomax - PO 0.4 mg DAILY@0830 [facility] Administration - Objective Vital Signs: Vital Signs Period Temp Pulse Resp BP Sys/Whitehead Pulse Ox Last 24 Hr 98.5 F-98.9 F 69-71 20-20 131-150/68-69 94 Constitutional: Yes: Well Nourished, No Distress, Calm Cardiovascular: Yes: Regular Rate and Rhythm, S1, S2. No: JVD (very tds neck habitus), Gallop, Murmur Respiratory: Yes: Regular, CTA Bilaterally. No: Accessory Muscle Use, Rales, Wheezes Extremities: No: Cold Edema: Yes (1+ pretib) Neurological: Yes: Alert. No: Seizure Psychiatric: No: Agitated Labs: CBC, BMP 03/17/18 07:10 03/18/18 06:50 cxr: clear lungs echo 06/2017: mild dec lvef, nl rv, mild mr, mild-mod tr, rvsp 40-50, mild ar, mild pr ecg: sr, pvcs, mobitz 1, old rbbb a/p: 77 m hx cad, mi x2, cabg 2012, pci x2 2016, mobitz I, dchf, copd, dm, htn , hld, ckd here with sob, le edema. sob,acute diastolic chf: -no signs acs -pt was on lasix 80 qd at home -improving with iv lasix here, agree with increase to 60 iv bid. Monitor daily wt, chem7 cad: -stable, no signs acs -cont asa, statin abnl ecg, mobitz 1: -chronic finding htn: -stable -same plan hld: -cont statin ckd: -baseline creat 1.8-2.2 -renal fxn stable here, continue to monitor with lasix -renal following
[2018-03-18] MEDS: ATORVASTATIN CA 40 MG TABLET (FP) PO SCH (21:35)
[2018-03-19] MEDS: FUROSEMIDE 40 MG/4 ML INJECTABLE VIAL IVPUSH SCH ×2 (06:21→13:49)
[2018-03-19] MEDS: INSULIN SLIDING SCALE (NOVOLOG) 1 VIAL SQ SCH ×5 (06:27→21:24)
[2018-03-19] MEDS: INSULIN (NOVOLOG) ASPART 100 UNITS/ML 10ML VIAL SQ SCH ×3 (06:27→17:09)
[2018-03-19 08:23] LABS: BASO % 0.7 % (0-2.0); EOS % 1.1 % (0-4.5); HEMATOCRIT 34.2 % (35.4-49); HEMOGLOBIN 10.7 GM/dL (11.7-16.9); LYMPH % 11.8 % (8-40); MCH 25.1 pg (25.7-33.7); MCHC 31.3 g/dl (32.0-35.9); MEAN CELL VOLUME 80.3 fl (80-96); MEAN PLT VOLUME 8.9 fl (7.5-11.1); MONO % 7.3 % (3.8-10.2); NEUT % 79.1 % (42.8-82.8); PLATELET COUNT 213 K/MM3 (134-434); RBC 4.27 M/mm3 (4.00-5.60); RDW 16.9 % (11.9-15.9)
[2018-03-19 08:39] LABS: ALBUMIN 2.9 g/dl (3.4-5.0); ALK PHOS 110 U/L (45-117); ANION GAP 9 MMOL/L (8-16); BILIRUBIN,TOTAL 0.8 mg/dL (0.2-1); BLOOD UREA NITROGEN 55 mg/dL (7-18); CALCIUM 8.3 mg/dL (8.5-10.1); CHLORIDE 95 mmol/L (98-107); CO2 30 mmol/L (21-32); CREATININE 2.3 mg/dL (0.55-1.3); GLUCOSE,RANDOM 162 mg/dL (74-106); POTASSIUM 3.7 mmol/L (3.5-5.1); SGOT/AST 10 U/L (15-37); SGPT/ALT 13 U/L (13-61); SODIUM 135 mmol/L (136-145); TOT PROT 6.9 g/dl (6.4-8.2)
[2018-03-19] MEDS: TAMSULOSIN HCL 0.4 MG CAP PO SCH (08:49)
--- NOTE | 2018-03-19 09:03 | PN ---
Progress Note, Physician Chief Complaint: sob History of Present Illness: walked in [place] to [facility]--no sob with this. legs/feet still swollen no palpit, cp - Current Medication List Current Medications: Active Medications Acetaminophen (Tylenol -) 650 mg PO Q4H PRN PRN Reason: PAIN Last Admin: 03/17/18 21:48 Dose: 650 mg Aspirin (Ecotrin -) 162 mg PO DAILY [facility] Last Admin: 03/18/18 11:56 Dose: 162 mg Atorvastatin Calcium (Lipitor -) 40 mg PO HS [facility] Last Admin: 03/18/18 21:35 Dose: 40 mg Cephalexin HCl (Keflex -) 500 mg PO BID [facility] Last Admin: 03/18/18 21:35 Dose: 500 mg Furosemide (Lasix Injection -) 60 mg IVPUSH BID@0600,1400 [facility] Last Admin: 03/19/18 06:21 Dose: 60 mg Insulin Aspart (Novolog Vial) 15 units SQ TIDAC [facility] Last Admin: 03/19/18 06:27 Dose: 15 units Insulin Aspart (Novolog Vial Sliding Scale -) 1 vial SQ ACHS [facility]; Protocol Last Admin: 03/19/18 06:27 Dose: Not Given Pantoprazole Sodium (Protonix -) 40 mg PO DAILY [facility] Last Admin: 03/18/18 11:56 Dose: 40 mg Tamsulosin HCl (Flomax -) 0.4 mg PO DAILY@0830 [facility] Last Admin: 03/19/18 08:49 Dose: 0.4 mg - Objective Vital Signs: Vital Signs Temperature 98.6 F 03/19/18 06:00 Pulse Rate 74 03/19/18 06:00 Respiratory Rate 20 03/19/18 06:00 Blood Pressure 142/72 03/19/18 06:00 O2 Sat by Pulse Oximetry (%) 94 L 03/18/18 21:00 Constitutional: Yes: Well Nourished, No Distress, Calm Cardiovascular: Yes: Regular Rate and Rhythm, S1, S2. No: JVD (in chair in solarium), Gallop, Murmur Respiratory: Yes: Regular, Rales (faint at R base). No: Accessory Muscle Use, Wheezes Extremities: No: Cold Edema: Yes (1+ pretib/feet) Neurological: Yes: Alert. No: Seizure Psychiatric: No: Agitated Labs: CBC, BMP 03/19/18 06:00 11/22/18 06:00 Assessment/Plan cxr: clear lungs echo 06/2017: mild dec lvef, nl rv, mild mr, mild-mod tr, rvsp 40-50, mild ar, mild pr ecg: sr, pvcs, mobitz 1, old rbbb a/p: 77 m hx cad, mi x2, cabg 2012, pci x2 2017, mobitz I, dchf, copd, dm, htn , hld, ckd here with sob, le edema. acute diastolic chf: -no signs acs -pt was on lasix 80 qd at home -improving with iv lasix here, increased to 60 iv bid 03/18 -bedscale not accurate. chair scale wts overall trend improving today at 242 from 247 peak -03/19: bun/creat up slightly. pt denies sob walking halls though pedal edema persists (is the edema new?? venous ins'y component?). given wt down and sx's improved, will cont lasix 60 iv bid today and reassess wt, exam and labs in am cad: -stable, no signs acs -cont asa, statin abnl ecg, mobitz 1: -chronic finding htn: -stable -same plan hld: -cont statin ckd: -baseline creat 1.8-2.2 -renal fxn stable here, continue to monitor with lasix -renal following
--- NOTE | 2018-03-19 09:23 | PN ---
Progress Note (short form) - Note Progress Note: sitting in lobby - remains with marked EGAN states more comfortable legs " less swollen" but remain painful and swollen Vital Signs Period Temp Pulse Resp BP Sys/Whitehead Pulse Ox Last 24 Hr 98.1 F-98.6 F 63-74 20-20 119-142/52-72 94 neck supple heart s1/S2 lung clear bilat decreased BS at bases abd protuberant / soft / BS + Ext +edema / firm bilat surgical scar Knees left foot cooler than right + pulses bilat CBC, BMP 03/19/18 06:00 03/19/18 06:00 CBC, BMP 03/17/18 07:10 03/17/18 07:10 CBC, BMP 03/15/18 07:30 03/15/18 07:30 cxr: clear lungs echo 06/2017: mild dec lvef, nl rv, mild mr, mild-mod tr, rvsp 40-50, mild ar, mild pr ecg: sr, pvcs, mobitz 1, old rbbb Active Medications Acetaminophen (Tylenol -) 650 mg PO Q4H PRN PRN Reason: PAIN Last Admin: 03/17/18 21:48 Dose: 650 mg Aspirin (Ecotrin -) 162 mg PO DAILY [facility] Last Admin: 03/18/18 11:56 Dose: 162 mg Atorvastatin Calcium (Lipitor -) 40 mg PO HS [facility] Last Admin: 03/18/18 21:35 Dose: 40 mg Cephalexin HCl (Keflex -) 500 mg PO BID [facility] Last Admin: 03/18/18 21:35 Dose: 500 mg Furosemide (Lasix Injection -) 60 mg IVPUSH BID@0600,1400 [facility] Last Admin: 03/19/18 06:21 Dose: 60 mg Insulin Aspart (Novolog Vial) 15 units SQ TIDAC [facility] Last Admin: 03/19/18 06:27 Dose: 15 units Insulin Aspart (Novolog Vial Sliding Scale -) 1 vial SQ ACHS [facility]; Protocol Last Admin: 03/19/18 06:27 Dose: Not Given Pantoprazole Sodium (Protonix -) 40 mg PO DAILY [facility] Last Admin: 03/18/18 11:56 Dose: 40 mg Tamsulosin HCl (Flomax -) 0.4 mg PO DAILY@0830 [facility] Last Admin: 03/19/18 08:49 Dose: 0.4 mg # CHF acute diastolic fluid overload - responding to Lasix at inc doses continue lasix - appreciate cardio note -- had been on 80 mg at home continue to trend renal function daily weights - weight seems unreliable # DM sliding scale ada diet / statins # CKD appreciate nephrology follow up renal function remains stable will increase lasix # BPH continue home meds Problem List - Problems (1) CHF exacerbation Code(s): I50.9 - HEART FAILURE, UNSPECIFIED (2) Acute on chronic diastolic (congestive) heart failure Code(s): I50.33 - ACUTE ON CHRONIC DIASTOLIC (CONGESTIVE) HEART FAILURE (3) CHF (congestive heart failure) Code(s): I50.9 - HEART FAILURE, UNSPECIFIED (4) CKD (chronic kidney disease) Code(s): N18.9 - CHRONIC KIDNEY DISEASE, UNSPECIFIED (5) Cellulitis, leg Code(s): L03.119 - CELLULITIS OF UNSPECIFIED PART OF LIMB (6) Diabetes Code(s): E11.9 - TYPE 2 DIABETES MELLITUS WITHOUT COMPLICATIONS Qualifiers: Diabetes mellitus fci 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 use: 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 terminal 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 use Diabetes mellitus complication detail: with unspecified neuropathy (7) Electrolyte abnormality Code(s): E87.8 - OTH DISORDERS OF ELECTROLYTE AND FLUID BALANCE, NEC (8) HTN (hypertension) Code(s): I10 - ESSENTIAL (PRIMARY) HYPERTENSION (9) Hx of CABG Code(s): Z95.1 - PRESENCE OF AORTOCORONARY BYPASS GRAFT (10) Hyperlipidemia Code(s): E78.5 - HYPERLIPIDEMIA, UNSPECIFIED (11) Inflammatory arthritis Code(s): M19.90 - UNSPECIFIED OSTEOARTHRITIS, UNSPECIFIED SITE (12) Leg edema Code(s): R60.0 - LOCALIZED EDEMA (13) Musculoskeletal pain Code(s): M79.1 - MYALGIA * DO NOT USE * (14) Old myocardial infarction Code(s): I25.2 - OLD MYOCARDIAL INFARCTION (15) Sleep apnea Code(s): G47.30 - SLEEP APNEA, UNSPECIFIED (16) Spinal stenosis of lumbar region Code(s): M48.06 - SPINAL STENOSIS, LUMBAR REGION * DO NOT USE * (17) Swelling of joint, wrist, right Code(s): M25.431 - EFFUSION, RIGHT WRIST
[2018-03-19] MEDS: ASPIRIN COATED 81 MG TABLET.EC PO SCH (09:57)
[2018-03-19] MEDS: PANTOPRAZOLE 40 MG TABLET (FP) PO SCH (09:57)
[2018-03-19] MEDS: CEPHALEXIN MONOHYDRATE 500 MG CAPSULE (UD) PO SCH ×2 (09:57→21:24)
[2018-03-19] MEDS: ACETAMINOPHEN 325 MG TABLET (FP) PO PRN ×2 (11:40→22:41)
[2018-03-19] MEDS ORDERED: SPIRONOLACTONE 25 MG TABLET (FP) PO ONE (12:44)
--- NOTE | 2018-03-19 12:44 | PN ---
Progress Note, Physician History of Present Illness: Pt seen and examined at bedside. He feels that his lower ext edema is starting to improve. - Current Medication List Current Medications: Active Medications Acetaminophen (Tylenol -) 650 mg PO Q4H PRN PRN Reason: PAIN Last Admin: 03/19/18 11:40 Dose: 650 mg Aspirin (Ecotrin -) 162 mg PO DAILY [facility] Last Admin: 03/19/18 09:57 Dose: 162 mg Atorvastatin Calcium (Lipitor -) 40 mg PO HS [facility] Last Admin: 03/18/18 21:35 Dose: 40 mg Cephalexin HCl (Keflex -) 500 mg PO BID [facility] Last Admin: 03/19/18 09:57 Dose: 500 mg Furosemide (Lasix Injection -) 60 mg IVPUSH BID@0600,1400 [facility] Last Admin: 03/19/18 06:21 Dose: 60 mg Insulin Aspart (Novolog Vial) 15 units SQ TIDAC [facility] Last Admin: 03/19/18 11:41 Dose: 15 units Insulin Aspart (Novolog Vial Sliding Scale -) 1 vial SQ ACHS [facility]; Protocol Last Admin: 03/19/18 11:43 Dose: Not Given Pantoprazole Sodium (Protonix -) 40 mg PO DAILY [facility] Last Admin: 03/19/18 09:57 Dose: 40 mg Tamsulosin HCl (Flomax -) 0.4 mg PO DAILY@0830 [facility] Last Admin: 03/19/18 08:49 Dose: 0.4 mg - Objective Vital Signs: Vital Signs Temperature 98.1 F 03/19/18 09:08 Pulse Rate 67 03/19/18 09:08 Respiratory Rate 20 03/19/18 09:08 Blood Pressure 119/59 L 03/19/18 09:08 O2 Sat by Pulse Oximetry (%) 94 L 03/18/18 21:00 Constitutional: Yes: Calm Eyes: Yes: Conjunctiva Clear HENT: Yes: Atraumatic Cardiovascular: Yes: S1, S2 Respiratory: Yes: CTA Bilaterally Gastrointestinal: Yes: Soft Genitourinary: Yes: WNL Musculoskeletal: Yes: WNL Edema: Yes Edema: LLE: 1+, RLE: 1+ Neurological: Yes: Oriented Psychiatric: Yes: Oriented Labs: CBC, BMP 03/19/18 06:00 03/19/18 06:00 Problem List - Problems (1) CHF exacerbation Code(s): I50.9 - HEART FAILURE, UNSPECIFIED (2) CHF (congestive heart failure) Code(s): I50.9 - HEART FAILURE, UNSPECIFIED (3) CKD (chronic kidney disease) Code(s): N18.9 - CHRONIC KIDNEY DISEASE, UNSPECIFIED (4) HTN (hypertension) Code(s): I10 - ESSENTIAL (PRIMARY) HYPERTENSION (5) Morbid obesity Code(s): E66.01 - MORBID (SEVERE) OBESITY DUE TO EXCESS CALORIES Assessment/Plan Current Medications Generic Name Dose Route Start Last Admin Trade Name Freq PRN Reason Stop Dose Admin Acetaminophen 650 mg 03/16/18 15:09 03/19/18 11:40 Tylenol - PO 650 mg Q4H PRN Administration PAIN Aspirin 162 mg 03/12/18 10:00 03/19/18 09:57 Ecotrin - PO 162 mg DAILY [facility] Administration Atorvastatin Calcium 40 mg 03/12/18 22:00 03/18/18 21:35 Lipitor - PO 40 mg HS [facility] Administration Cephalexin HCl 500 mg 03/13/18 22:00 03/19/18 09:57 Keflex - PO 500 mg BID [facility] Administration Furosemide 60 mg 03/17/18 21:16 03/19/18 06:21 Lasix Injection - IVPUSH 60 mg BID@0600,1400 [facility] Administration Insulin Aspart 15 units 03/12/18 07:00 03/19/18 11:41 Novolog Vial SQ 15 units TIDAC [facility] Administration Insulin Aspart 1 vial 03/12/18 07:00 03/19/18 11:43 Novolog Vial Sliding Scale - SQ Not Given ACHS [facility] Protocol Pantoprazole Sodium 40 mg 03/12/18 10:00 03/19/18 09:57 Protonix - PO 40 mg DAILY [facility] Administration Tamsulosin HCl 0.4 mg 03/12/18 08:30 03/19/18 08:49 Flomax - PO 0.4 mg DAILY@0830 [facility] Administration Impression 1. CKD 2. CHF 3. DM 4. obesity 5. HTN 6. dyspnea 7. HLD 8. CAD s/p cabg Plan - cont lasix - will give spironolactone - will order cxr - monitor lytes - check weight in am - clinically improved from yesterday - will need outpt follow up after discharge - will follow Dr Omer
[2018-03-19] MEDS: ATORVASTATIN CA 40 MG TABLET (FP) PO SCH (21:24)
[2018-03-20] MEDS: INSULIN SLIDING SCALE (NOVOLOG) 1 VIAL SQ SCH ×4 (06:03→21:24)
[2018-03-20] MEDS: FUROSEMIDE 40 MG/4 ML INJECTABLE VIAL IVPUSH SCH (06:04)
[2018-03-20] MEDS: INSULIN (NOVOLOG) ASPART 100 UNITS/ML 10ML VIAL SQ SCH ×3 (06:39→17:18)
[2018-03-20 08:33] LABS: ALK PHOS 110 U/L (45-117); ANION GAP 11 MMOL/L (8-16); BILIRUBIN,TOTAL 0.8 mg/dL (0.2-1); BLOOD UREA NITROGEN 57 mg/dL (7-18); CALCIUM 8.4 mg/dL (8.5-10.1); CHLORIDE 94 mmol/L (98-107); CO2 30 mmol/L (21-32); CREATININE 2.5 mg/dL (0.55-1.3); GLUCOSE,RANDOM 183 mg/dL (74-106); POTASSIUM 3.9 mmol/L (3.5-5.1); SGOT/AST 13 U/L (15-37); SGPT/ALT 13 U/L (13-61); SODIUM 134 mmol/L (136-145); TOT PROT 7.2 g/dl (6.4-8.2)
[2018-03-20] MEDS: TAMSULOSIN HCL 0.4 MG CAP PO SCH (08:53)
[2018-03-20] MEDS: CEPHALEXIN MONOHYDRATE 500 MG CAPSULE (UD) PO SCH (09:56)
[2018-03-20] MEDS: PANTOPRAZOLE 40 MG TABLET (FP) PO SCH (09:56)
[2018-03-20] MEDS: ASPIRIN COATED 81 MG TABLET.EC PO SCH (09:56)
--- NOTE | 2018-03-20 10:39 | PN ---
Progress Note (short form) - Note Progress Note: Chief Complaint: sob, swelling History of Present Illness: sob better no cp le edema better no palpitations - Current Medication List Current Medications Generic Name Dose Route Start Last Admin Trade Name [place] PRN Reason Stop Dose Admin Acetaminophen 650 mg 03/16/18 15:09 03/19/18 22:41 Tylenol - PO 650 mg Q4H PRN Administration PAIN Aspirin 162 mg 03/12/18 10:00 03/20/18 09:56 Ecotrin - PO 162 mg DAILY [facility] Administration Atorvastatin Calcium 40 mg 03/12/18 22:00 03/19/18 21:24 Lipitor - PO 40 mg HS [facility] Administration Cephalexin HCl 500 mg 03/13/18 22:00 03/20/18 09:56 Keflex - PO 500 mg BID [facility] Administration Furosemide 80 mg 03/20/18 14:00 Lasix - PO BID@0600,1400 [facility] Insulin Aspart 15 units 03/12/18 07:00 03/20/18 06:39 Novolog Vial SQ 15 units TIDAC [facility] Administration Insulin Aspart 1 vial 03/12/18 07:00 03/20/18 06:03 Novolog Vial Sliding Scale - SQ Not Given ACHS [facility] Protocol Pantoprazole Sodium 40 mg 03/12/18 10:00 03/20/18 09:56 Protonix - PO 40 mg DAILY [facility] Administration Tamsulosin HCl 0.4 mg 03/12/18 08:30 03/20/18 08:53 Flomax - PO 0.4 mg DAILY@0830 [facility] Administration - Objective Vital Signs: Vital Signs Period Temp Pulse Resp BP Sys/Whitehead Pulse Ox Last 24 Hr 97.4 F-98.3 F 57-68 20-20 123-149/60-77 96 Constitutional: Yes: Well Nourished, No Distress, Calm Cardiovascular: Yes: Regular Rate and Rhythm, S1, S2. No: JVD (very tds neck habitus), Gallop, Murmur Respiratory: Yes: Regular, CTA Bilaterally. No: Accessory Muscle Use, Rales, Wheezes Extremities: No: Cold Edema: trace le edema bl Neurological: Yes: Alert. No: Seizure Psychiatric: No: Agitated Labs: CBC, BMP 03/19/18 06:00 03/20/18 07:00 cxr: clear lungs echo 06/2017: mild dec lvef, nl rv, mild mr, mild-mod tr, rvsp 40-50, mild ar, mild pr ecg: sr, pvcs, mobitz 1, old rbbb a/p: 77 m hx cad, mi x2, cabg 2012, pci x2 2017, mobitz I, dchf, copd, dm, htn , hld, ckd here with sob, le edema. acute diastolic chf: -no signs acs -pt was on lasix 80 qd at home -improving with iv lasix here, increased to 60 iv bid 03/18 -bedscale not accurate. chair scale wts overall trend improving today at 242 from 247 peak -03/19: bun/creat up slightly. pt denies sob walking halls though pedal edema persists (is the edema new?? venous ins'y component?). given wt down and sx's improved, will cont lasix 60 iv bid today and reassess wt, exam and labs in am -03/20: clinically vol status much improved. cxr w/o chf. bun and cr rising, will change to po lasix now, 80 bid. cad: -stable, no signs acs -cont asa, statin abnl ecg, mobitz 1: -chronic finding htn: -stable -same plan hld: -cont statin ckd: -baseline creat 1.8-2.2 -bun and cr rising with iv lasix, will change to po lasix now, 80 bid. -renal following
[2018-03-20] MEDS ORDERED: CYCLOBENZAPRINE HCL 5 MG TABLET PO ONE (12:45)
[2018-03-20] MEDS ORDERED: PT OWN MED DRAWER 7, Y5N ONE (14:18)
[2018-03-20] MEDS: FUROSEMIDE 40 MG TABLET (FP) PO SCH (14:21)
--- NOTE | 2018-03-20 15:52 | PN ---
Progress Note, Physician History of Present Illness: Pt seen and examined at bedside. He is awake and alert. He feels that the edema is improved. - Current Medication List Current Medications: Active Medications Acetaminophen (Tylenol -) 650 mg PO Q4H PRN PRN Reason: PAIN Last Admin: 03/19/18 22:41 Dose: 650 mg Aspirin (Ecotrin -) 162 mg PO DAILY [facility] Last Admin: 03/20/18 09:56 Dose: 162 mg Atorvastatin Calcium (Lipitor -) 40 mg PO HS [facility] Last Admin: 03/19/18 21:24 Dose: 40 mg Cephalexin HCl (Keflex -) 500 mg PO BID [facility] Last Admin: 03/20/18 09:56 Dose: 500 mg Cyclobenzaprine HCl (Cyclobenzaprine Hcl) 5 mg PO DAILY [facility] Furosemide (Lasix -) 80 mg PO BID@0600,1400 [facility] Last Admin: 03/20/18 14:21 Dose: 80 mg Insulin Aspart (Novolog Vial) 15 units SQ TIDAC [facility] Last Admin: 03/20/18 11:58 Dose: 15 units Insulin Aspart (Novolog Vial Sliding Scale -) 1 vial SQ ACHS [facility]; Protocol Last Admin: 03/20/18 11:58 Dose: Not Given Pantoprazole Sodium (Protonix -) 40 mg PO DAILY [facility] Last Admin: 03/20/18 09:56 Dose: 40 mg Tamsulosin HCl (Flomax -) 0.4 mg PO DAILY@0830 [facility] Last Admin: 03/20/18 08:53 Dose: 0.4 mg - Objective Vital Signs: Vital Signs Temperature 97.7 F 03/20/18 09:01 Pulse Rate 61 03/20/18 09:01 Respiratory Rate 20 03/20/18 09:01 Blood Pressure 149/77 03/20/18 09:01 O2 Sat by Pulse Oximetry (%) 96 03/19/18 21:00 Constitutional: Yes: Calm Eyes: Yes: Conjunctiva Clear HENT: Yes: Atraumatic Cardiovascular: Yes: S1, S2 Respiratory: Yes: CTA Bilaterally Gastrointestinal: Yes: Soft Genitourinary: Yes: WNL Edema: Yes Edema: LLE: 1+, RLE: 1+ Neurological: Yes: Oriented Psychiatric: Yes: Oriented Labs: CBC, BMP 03/19/18 06:00 03/20/18 07:00 Problem List - Problems (1) CHF exacerbation Code(s): I50.9 - HEART FAILURE, UNSPECIFIED (2) CHF (congestive heart failure) Code(s): I50.9 - HEART FAILURE, UNSPECIFIED (3) CKD (chronic kidney disease) Code(s): N18.9 - CHRONIC KIDNEY DISEASE, UNSPECIFIED (4) HTN (hypertension) Code(s): I10 - ESSENTIAL (PRIMARY) HYPERTENSION (5) Morbid obesity Code(s): E66.01 - MORBID (SEVERE) OBESITY DUE TO EXCESS CALORIES Assessment/Plan Current Medications Generic Name Dose Route Start Last Admin Trade Name Freq PRN Reason Stop Dose Admin Acetaminophen 650 mg 03/16/18 15:09 03/19/18 22:41 Tylenol - PO 650 mg Q4H PRN Administration PAIN Aspirin 162 mg 03/12/18 10:00 03/20/18 09:56 Ecotrin - PO 162 mg DAILY [facility] Administration Atorvastatin Calcium 40 mg 03/12/18 22:00 03/19/18 21:24 Lipitor - PO 40 mg HS [facility] Administration Cephalexin HCl 500 mg 03/13/18 22:00 03/20/18 09:56 Keflex - PO 500 mg BID [facility] Administration Cyclobenzaprine HCl 5 mg 03/21/18 10:00 Cyclobenzaprine Hcl PO DAILY [facility] Furosemide 80 mg 03/20/18 14:00 03/20/18 14:21 Lasix - PO 80 mg BID@0600,1400 [facility] Administration Insulin Aspart 15 units 03/12/18 07:00 03/20/18 11:58 Novolog Vial SQ 15 units TIDAC [facility] Administration Insulin Aspart 1 vial 03/12/18 07:00 03/20/18 11:58 Novolog Vial Sliding Scale - SQ Not Given ACHS [facility] Protocol Pantoprazole Sodium 40 mg 03/12/18 10:00 03/20/18 09:56 Protonix - PO 40 mg DAILY [facility] Administration Tamsulosin HCl 0.4 mg 03/12/18 08:30 03/20/18 08:53 Flomax - PO 0.4 mg DAILY@0830 [facility] Administration Impression 1. CKD 2. CHF 3. DM 4. obesity 5. HTN 6. dyspnea 7. HLD 8. CAD s/p cabg Plan - volume status is improved - renal function is worse - change lasix to PO - repeat labs in am - cardio input appreciated - will need outpt follow up after discharge - will follow Dr Omer
[2018-03-20] MEDS: ACETAMINOPHEN 325 MG TABLET (FP) PO PRN ×2 (17:18→21:23)
--- NOTE | 2018-03-20 20:57 | PN ---
Progress Note (short form) - Note Progress Note: sitting in lobby - remains with marked EGAN c/o of body aches and spasms to lower legs legs " less swollen" but remain painful and swollen Vital Signs Period Temp Pulse Resp BP Sys/Whitehead Pulse Ox Last 24 Hr 98.1 F-98.6 F 63-74 20-20 119-142/52-72 94 neck supple heart s1/S2 lung clear bilat decreased BS at bases abd protuberant / soft / BS + Ext +edema / firm bilat surgical scar Knees left foot cooler than right + pulses bilat CBC, BMP 03/19/18 06:00 03/20/18 07:00 CBC, BMP 03/19/18 06:00 03/19/18 06:00 cxr: clear lungs echo 06/2017: mild dec lvef, nl rv, mild mr, mild-mod tr, rvsp 40-50, mild ar, mild pr ecg: sr, pvcs, mobitz 1, old rbbb Active Medications Acetaminophen (Tylenol -) 650 mg PO Q4H PRN PRN Reason: PAIN Last Admin: 03/20/18 17:18 Dose: 650 mg Aspirin (Ecotrin -) 162 mg PO DAILY [facility] Last Admin: 03/20/18 09:56 Dose: 162 mg Atorvastatin Calcium (Lipitor -) 40 mg PO HS [facility] Last Admin: 03/19/18 21:24 Dose: 40 mg Cephalexin HCl (Keflex -) 500 mg PO BID [facility] Last Admin: 03/20/18 09:56 Dose: 500 mg Cyclobenzaprine HCl (Cyclobenzaprine Hcl) 5 mg PO DAILY [facility] Furosemide (Lasix -) 80 mg PO BID@0600,1400 [facility] Last Admin: 03/20/18 14:21 Dose: 80 mg Insulin Aspart (Novolog Vial) 15 units SQ TIDAC [facility] Last Admin: 03/20/18 17:18 Dose: 15 units Insulin Aspart (Novolog Vial Sliding Scale -) 1 vial SQ ACHS [facility]; Protocol Last Admin: 03/20/18 17:11 Dose: Not Given Pantoprazole Sodium (Protonix -) 40 mg PO DAILY [facility] Last Admin: 03/20/18 09:56 Dose: 40 mg Tamsulosin HCl (Flomax -) 0.4 mg PO DAILY@0830 [facility] Last Admin: 03/20/18 08:53 Dose: 0.4 mg # CHF acute diastolic compensated - less dyspnea will resume home dose of lasix appreciate cardio amd renal follow up # DM sliding scale ada diet / statins # CKD renal function worse lasix changed to PO # BPH continue home meds Problem List - Problems (1) CHF exacerbation Code(s): I50.9 - HEART FAILURE, UNSPECIFIED (2) Acute on chronic diastolic (congestive) heart failure Code(s): I50.33 - ACUTE ON CHRONIC DIASTOLIC (CONGESTIVE) HEART FAILURE (3) CHF (congestive heart failure) Code(s): I50.9 - HEART FAILURE, UNSPECIFIED (4) CKD (chronic kidney disease) Code(s): N18.9 - CHRONIC KIDNEY DISEASE, UNSPECIFIED (5) Cellulitis, leg Code(s): L03.119 - CELLULITIS OF UNSPECIFIED PART OF LIMB (6) Diabetes Code(s): E11.9 - TYPE 2 DIABETES MELLITUS WITHOUT COMPLICATIONS Qualifiers: Diabetes mellitus alf insulin use: with alf use Diabetes mellitus complication detail: with unspecified neuropathy (7) Electrolyte abnormality Code(s): E87.8 - OTH DISORDERS OF ELECTROLYTE AND FLUID BALANCE, NEC (8) HTN (hypertension) Code(s): I10 - ESSENTIAL (PRIMARY) HYPERTENSION (9) Hx of CABG Code(s): Z95.1 - PRESENCE OF AORTOCORONARY BYPASS GRAFT (10) Hyperlipidemia Code(s): E78.5 - HYPERLIPIDEMIA, UNSPECIFIED (11) Inflammatory arthritis Code(s): M19.90 - UNSPECIFIED OSTEOARTHRITIS, UNSPECIFIED SITE (12) Leg edema Code(s): R60.0 - LOCALIZED EDEMA (13) Musculoskeletal pain Code(s): M79.1 - MYALGIA * DO NOT USE * (14) Old myocardial infarction Code(s): I25.2 - OLD MYOCARDIAL INFARCTION (15) Sleep apnea Code(s): G47.30 - SLEEP APNEA, UNSPECIFIED (16) Spinal stenosis of lumbar region Code(s): M48.06 - SPINAL STENOSIS, LUMBAR REGION * DO NOT USE * (17) Swelling of joint, wrist, right Code(s): M25.431 - EFFUSION, RIGHT WRIST
[2018-03-20] MEDS: ATORVASTATIN CA 40 MG TABLET (FP) PO SCH (21:24)
[2018-03-21] MEDS: FUROSEMIDE 40 MG TABLET (FP) PO SCH (06:02)
[2018-03-21] MEDS: INSULIN SLIDING SCALE (NOVOLOG) 1 VIAL SQ SCH ×4 (06:03→21:48)
[2018-03-21] MEDS: INSULIN (NOVOLOG) ASPART 100 UNITS/ML 10ML VIAL SQ SCH ×3 (06:38→17:20)
[2018-03-21 07:58] LABS: BASO % 0.7 % (0-2.0); HEMATOCRIT 34.7 % (35.4-49); HEMOGLOBIN 10.9 GM/dL (11.7-16.9); LYMPH % 14.5 % (8-40); MCHC 31.5 g/dl (32.0-35.9); MEAN CELL VOLUME 79.4 fl (80-96); MEAN PLT VOLUME 8.6 fl (7.5-11.1); MONO % 6.7 % (3.8-10.2); NEUT % 76.1 % (42.8-82.8); PLATELET COUNT 235 K/MM3 (134-434); RBC 4.37 M/mm3 (4.00-5.60); RDW 16.6 % (11.9-15.9)
[2018-03-21] MEDS: TAMSULOSIN HCL 0.4 MG CAP PO SCH (08:05)
[2018-03-21 08:43] LABS: ANION GAP 11 MMOL/L (8-16); BLOOD UREA NITROGEN 58 mg/dL (7-18); CALCIUM 8.5 mg/dL (8.5-10.1); CHLORIDE 93 mmol/L (98-107); CO2 30 mmol/L (21-32); CREATININE 2.5 mg/dL (0.55-1.3); GLUCOSE,RANDOM 150 mg/dL (74-106); MAGNESIUM 2.4 mg/dL (1.8-2.4); POTASSIUM 3.8 mmol/L (3.5-5.1); SODIUM 133 mmol/L (136-145)
--- NOTE | 2018-03-21 09:36 | PN ---
Progress Note, Physician Chief Complaint: sob History of Present Illness: no more sob. feet less swollen, not quite resolved no cp, palpit - Current Medication List Current Medications: Active Medications Acetaminophen (Tylenol -) 650 mg PO Q4H PRN PRN Reason: PAIN Last Admin: 03/20/18 21:23 Dose: 650 mg Aspirin (Ecotrin -) 162 mg PO DAILY [facility] Last Admin: 03/20/18 09:56 Dose: 162 mg Atorvastatin Calcium (Lipitor -) 40 mg PO HS [facility] Last Admin: 03/20/18 21:24 Dose: 40 mg Cyclobenzaprine HCl (Cyclobenzaprine Hcl) 5 mg PO DAILY [facility] Furosemide (Lasix -) 80 mg PO BID@0600,1400 [facility] Last Admin: 03/21/18 06:02 Dose: 80 mg Insulin Aspart (Novolog Vial) 15 units SQ TIDAC [facility] Last Admin: 03/21/18 06:38 Dose: 15 units Insulin Aspart (Novolog Vial Sliding Scale -) 1 vial SQ ACHS [facility]; Protocol Last Admin: 03/21/18 06:03 Dose: Not Given Pantoprazole Sodium (Protonix -) 40 mg PO DAILY [facility] Last Admin: 03/20/18 09:56 Dose: 40 mg Tamsulosin HCl (Flomax -) 0.4 mg PO DAILY@0830 [facility] Last Admin: 03/20/18 08:53 Dose: 0.4 mg - Objective Vital Signs: Vital Signs Temperature 98.3 F 03/21/18 05:35 Pulse Rate 72 03/21/18 05:35 Respiratory Rate 18 03/21/18 05:35 Blood Pressure 134/92 03/21/18 05:35 O2 Sat by Pulse Oximetry (%) 97 03/20/18 21:00 Constitutional: Yes: Well Nourished, No Distress, Calm Cardiovascular: Yes: Regular Rate and Rhythm, S1, S2. No: JVD (in chair), Gallop, Murmur Respiratory: Yes: Regular, CTA Bilaterally. No: Accessory Muscle Use, Rales, Wheezes Extremities: No: Cold Edema: Yes (trace feet) Neurological: Yes: Alert, Oriented Psychiatric: No: Agitated Labs: CBC, BMP 03/21/18 07:15 03/21/18 07:15 Assessment/Plan cxr: clear lungs echo 06/2017: mild dec lvef, nl rv, mild mr, mild-mod tr, rvsp 40-50, mild ar, mild pr ecg: sr, pvcs, mobitz 1, old rbbb a/p: 77 m hx cad, mi x2, cabg 2012, pci x2 2017, mobitz I, dchf, copd, dm, htn , hld, ckd here with sob, le edema. acute diastolic chf: -no signs acs -pt was on lasix 80 qd at home -improving with iv lasix here, increased to 60 iv bid 03/18 -bedscale not accurate. chair scale wts overall trend improving today at 242 from 247 peak -03/19: bun/creat up slightly. pt denies sob walking halls though pedal edema persists (is the edema new?? venous ins'y component?). given wt down and sx's improved, will cont lasix 60 iv bid today and reassess wt, exam and labs in am -03/20: clinically vol status much improved. cxr w/o chf. bun and cr rising, will change to po lasix now, 80 bid. -03/21: symptomatically improved, rpt CXR yest congestion cleared. wt trend ( chair scale recordings) 252 to 244 yest, ? 238 today?. bun/creat stable vs yest , slightly up vs prior trend. -recommend lasix 80 po qd--outpt f/u of renal fxn in 3-5 days pulm HTN: -likely WHO 2 sec to diast chf -no further w/u indicated at present--reconsider if PH persists on f/u echo as outpt once pt well-diuresed, or RV dilation seen in future cad: -stable, no signs acs -cont asa, statin abnl ecg, mobitz 1: -chronic finding htn: -stable overall. tight bp goal warranted here (<130/80_ -same meds as doing, outpt f/u hld: -cont statin ckd: -baseline creat 1.8-2.2 -bun and cr rising with iv lasix, will change to po lasix now, 80 bid. -renal following
[2018-03-21] MEDS: CYCLOBENZAPRINE HCL 5 MG TABLET PO SCH (10:05)
[2018-03-21] MEDS: ASPIRIN COATED 81 MG TABLET.EC PO SCH (10:05)
[2018-03-21] MEDS: PANTOPRAZOLE 40 MG TABLET (FP) PO SCH (10:05)
[2018-03-21] MEDS ORDERED: INSULIN (NOVOLOG) ASPART 100 UNITS/ML 10ML VIAL ONE (11:04)
[2018-03-21] MEDS: ACETAMINOPHEN 325 MG TABLET (FP) PO PRN ×2 (11:05→20:17)
[2018-03-21] MEDS: FINASTERIDE 5 MG TABLET (FP) PO SCH (14:19)
--- NOTE | 2018-03-21 14:22 | PN ---
Progress Note (short form) - Note Progress Note: sitting in lobby - ambulation improved case discussed with daughter who informs me patient known to be non compliant with diet "all the time "' c/o feeling tired / dry mouth legs are "back to normal " Vital Signs Period Temp Pulse Resp BP Sys/Whitehead Pulse Ox Last 24 Hr 98.3 F-98.5 F 59-72 18-20 134-145/81-92 94-97 neck supple heart s1/S2 lung clear bilat decreased BS at bases abd protuberant / soft / BS + Ext trace edema LE bilat surgical scar Knees left foot cooler than right + pulses bilat CBC, BMP 03/21/18 07:15 03/21/18 07:15 CBC, BMP 03/19/18 06:00 03/20/18 07:00 CBC, BMP 03/19/18 06:00 03/19/18 06:00 cxr: clear lungs echo 06/2017: mild dec lvef, nl rv, mild mr, mild-mod tr, rvsp 40-50, mild ar, mild pr ecg: sr, pvcs, mobitz 1, old rbbb Active Medications Acetaminophen (Tylenol -) 650 mg PO Q4H PRN PRN Reason: PAIN Last Admin: 03/21/18 11:05 Dose: 650 mg Aspirin (Ecotrin -) 162 mg PO DAILY [facility] Last Admin: 03/21/18 10:05 Dose: 162 mg Atorvastatin Calcium (Lipitor -) 40 mg PO HS [facility] Last Admin: 03/20/18 21:24 Dose: 40 mg Cyclobenzaprine HCl (Cyclobenzaprine Hcl) 5 mg PO DAILY [facility] Last Admin: 03/21/18 10:05 Dose: 5 mg Furosemide (Lasix -) 80 mg PO DAILY [facility] Insulin Aspart (Novolog Vial) 15 units SQ TIDAC [facility] Last Admin: 03/21/18 12:33 Dose: 15 units Insulin Aspart (Novolog Vial Sliding Scale -) 1 vial SQ ACHS [facility]; Protocol Last Admin: 03/21/18 12:33 Dose: Not Given Pantoprazole Sodium (Protonix -) 40 mg PO DAILY [facility] Last Admin: 03/21/18 10:05 Dose: 40 mg Tamsulosin HCl (Flomax -) 0.4 mg PO DAILY@0830 [facility] Last Admin: 03/21/18 08:05 Dose: 0.4 mg # CHF acute diastolic compensated - less dyspnea will resume home dose of lasix patient c/o leg spasms 2/2 to fluid shifts appreciate cardio amd renal follow up # DM ada diet sliding scale ada diet / statins # CKD renal function worse however has remained stable lasix changed to PO # BPH continue home meds Problem List - Problems (1) CHF exacerbation Code(s): I50.9 - HEART FAILURE, UNSPECIFIED (2) Acute on chronic diastolic (congestive) heart failure Code(s): I50.33 - ACUTE ON CHRONIC DIASTOLIC (CONGESTIVE) HEART FAILURE (3) CHF (congestive heart failure) Code(s): I50.9 - HEART FAILURE, UNSPECIFIED (4) CKD (chronic kidney disease) Code(s): N18.9 - CHRONIC KIDNEY DISEASE, UNSPECIFIED (5) Cellulitis, leg Code(s): L03.119 - CELLULITIS OF UNSPECIFIED PART OF LIMB (6) Diabetes Code(s): E11.9 - TYPE 2 DIABETES MELLITUS WITHOUT COMPLICATIONS Qualifiers: Diabetes mellitus long term care administrator insulin use: with mcc use Diabetes mellitus complication detail: with unspecified neuropathy (7) Electrolyte abnormality Code(s): E87.8 - OTH DISORDERS OF ELECTROLYTE AND FLUID BALANCE, NEC (8) HTN (hypertension) Code(s): I10 - ESSENTIAL (PRIMARY) HYPERTENSION (9) Hx of CABG Code(s): Z95.1 - PRESENCE OF AORTOCORONARY BYPASS GRAFT (10) Hyperlipidemia Code(s): E78.5 - HYPERLIPIDEMIA, UNSPECIFIED (11) Inflammatory arthritis Code(s): M19.90 - UNSPECIFIED OSTEOARTHRITIS, UNSPECIFIED SITE (12) Leg edema Code(s): R60.0 - LOCALIZED EDEMA (13) Musculoskeletal pain Code(s): M79.1 - MYALGIA * DO NOT USE * (14) Old myocardial infarction Code(s): I25.2 - OLD MYOCARDIAL INFARCTION (15) Sleep apnea Code(s): G47.30 - SLEEP APNEA, UNSPECIFIED (16) Spinal stenosis of lumbar region Code(s): M48.06 - SPINAL STENOSIS, LUMBAR REGION * DO NOT USE * (17) Swelling of joint, wrist, right Code(s): M25.431 - EFFUSION, RIGHT WRIST
[2018-03-21] MEDS: ATORVASTATIN CA 40 MG TABLET (FP) PO SCH (21:46)
[2018-03-22] MEDS: INSULIN (NOVOLOG) ASPART 100 UNITS/ML 10ML VIAL SQ SCH ×3 (06:20→17:02)
[2018-03-22] MEDS: INSULIN SLIDING SCALE (NOVOLOG) 1 VIAL SQ SCH ×4 (06:21→21:30)
[2018-03-22 08:19] LABS: BASO % 0.7 % (0-2.0); EOS % 1.7 % (0-4.5); HEMATOCRIT 37.2 % (35.4-49); HEMOGLOBIN 11.6 GM/dL (11.7-16.9); LYMPH % 13.8 % (8-40); MCH 24.8 pg (25.7-33.7); MCHC 31.2 g/dl (32.0-35.9); MEAN CELL VOLUME 79.5 fl (80-96); MEAN PLT VOLUME 8.9 fl (7.5-11.1); MONO % 5.1 % (3.8-10.2); NEUT % 78.7 % (42.8-82.8); PLATELET COUNT 255 K/MM3 (134-434); RBC 4.67 M/mm3 (4.00-5.60); RDW 16.9 % (11.9-15.9); WHITE BLOOD COUNT 7.4 K/mm3 (4.0-10.0)
[2018-03-22 08:35] LABS: ANION GAP 12 MMOL/L (8-16); BLOOD UREA NITROGEN 57 mg/dL (7-18); CALCIUM 8.7 mg/dL (8.5-10.1); CHLORIDE 94 mmol/L (98-107); CO2 30 mmol/L (21-32); CREATININE 2.5 mg/dL (0.55-1.3); GLUCOSE,RANDOM 160 mg/dL (74-106); SODIUM 135 mmol/L (136-145)
[2018-03-22] MEDS: TAMSULOSIN HCL 0.4 MG CAP PO SCH (09:01)
[2018-03-22] MEDS: ASPIRIN COATED 81 MG TABLET.EC PO SCH (10:01)
[2018-03-22] MEDS: CYCLOBENZAPRINE HCL 5 MG TABLET PO SCH (10:02)
[2018-03-22] MEDS: FUROSEMIDE 40 MG TABLET (FP) PO SCH (10:02)
[2018-03-22] MEDS: FINASTERIDE 5 MG TABLET (FP) PO SCH (10:02)
--- NOTE | 2018-03-22 11:00 | PN ---
Progress Note (short form) - Note Progress Note: RENAL Pt is awake and alert comfortable feels weak, but is in [facility] on his own Last Vital Signs Temp Pulse Resp BP Pulse Ox 98.3 F 61 20 134/83 94 L 03/22/18 06:28 03/22/18 06:28 03/22/18 06:28 03/22/18 06:28 03/21/18 21:00 lungs clear cvs s1s2 rr abd soft ext +trace edema neuro a+ox3 CBC, BMP 03/22/18 07:15 03/22/18 07:15 Current Medications Generic Name Dose Route Start Last Admin Trade Name Freq PRN Reason Stop Dose Admin Acetaminophen 650 mg 03/16/18 15:09 03/21/18 20:17 Tylenol - PO 650 mg Q4H PRN Administration PAIN Aspirin 162 mg 03/12/18 10:00 03/22/18 10:01 Ecotrin - PO 162 mg DAILY [facility] Administration Atorvastatin Calcium 40 mg 03/12/18 22:00 03/21/18 21:46 Lipitor - PO 40 mg HS [facility] Administration Cyclobenzaprine HCl 5 mg 03/21/18 10:00 03/22/18 10:02 Cyclobenzaprine Hcl PO 5 mg DAILY [facility] Administration Finasteride 5 mg 03/21/18 14:30 03/22/18 10:02 Proscar - PO 5 mg DAILY [facility] Administration Furosemide 80 mg 03/22/18 10:00 03/22/18 10:02 Lasix - PO 80 mg DAILY [facility] Administration Insulin Aspart 15 units 03/12/18 07:00 03/22/18 06:20 Novolog Vial SQ 15 units TIDAC [facility] Administration Insulin Aspart 1 vial 03/12/18 07:00 03/22/18 06:21 Novolog Vial Sliding Scale - SQ Not Given ACHS [facility] Protocol Tamsulosin HCl 0.4 mg 03/12/18 08:30 03/22/18 09:01 Flomax - PO 0.4 mg DAILY@0830 [facility] Administration Impression 1. CKD 2. CHF 3. DM 4. obesity 5. HTN 6. dyspnea 7. HLD 8. CAD s/p cabg 9. CARLOS probably diuretic related- stable creat for 3 days Plan would continue diuretics despite rise in creat, now on oral salt restriction cardio follow up outpatient renal follow up MV
--- NOTE | 2018-03-22 13:01 | PN ---
Progress Note, Physician - Current Medication List Current Medications: Active Medications Acetaminophen (Tylenol -) 650 mg PO Q4H PRN PRN Reason: PAIN Last Admin: 03/21/18 20:17 Dose: 650 mg Aspirin (Ecotrin -) 162 mg PO DAILY [facility] Last Admin: 03/22/18 10:01 Dose: 162 mg Atorvastatin Calcium (Lipitor -) 40 mg PO HS [facility] Last Admin: 03/21/18 21:46 Dose: 40 mg Cyclobenzaprine HCl (Cyclobenzaprine Hcl) 5 mg PO DAILY [facility] Last Admin: 03/22/18 10:02 Dose: 5 mg Finasteride (Proscar -) 5 mg PO DAILY [facility] Last Admin: 03/22/18 10:02 Dose: 5 mg Furosemide (Lasix -) 80 mg PO DAILY [facility] Last Admin: 03/22/18 10:02 Dose: 80 mg Insulin Aspart (Novolog Vial) 15 units SQ TIDAC [facility] Last Admin: 03/22/18 12:33 Dose: 15 units Insulin Aspart (Novolog Vial Sliding Scale -) 1 vial SQ [facility]; Protocol Last Admin: 03/22/18 12:33 Dose: 4 units Tamsulosin HCl (Flomax -) 0.4 mg PO DAILY@0830 [facility] Last Admin: 03/22/18 09:01 Dose: 0.4 mg - Objective Vital Signs: Vital Signs Temperature 98.3 F 03/22/18 06:28 Pulse Rate 61 03/22/18 06:28 Respiratory Rate 20 03/22/18 06:28 Blood Pressure 134/83 03/22/18 06:28 O2 Sat by Pulse Oximetry (%) 94 L 03/21/18 21:00 Labs: CBC, BMP 03/22/18 07:15 03/22/18 07:15
--- NOTE | 2018-03-22 13:02 | PN ---
Progress Note, Physician Chief Complaint: sob History of Present Illness: no sob. no feet swelling no cp, palpit - Current Medication List Current Medications: Active Medications Acetaminophen (Tylenol -) 650 mg PO Q4H PRN PRN Reason: PAIN Last Admin: 03/21/18 20:17 Dose: 650 mg Aspirin (Ecotrin -) 162 mg PO DAILY [facility] Last Admin: 03/22/18 10:01 Dose: 162 mg Atorvastatin Calcium (Lipitor -) 40 mg PO HS [facility] Last Admin: 03/21/18 21:46 Dose: 40 mg Cyclobenzaprine HCl (Cyclobenzaprine Hcl) 5 mg PO DAILY [facility] Last Admin: 03/22/18 10:02 Dose: 5 mg Finasteride (Proscar -) 5 mg PO DAILY [facility] Last Admin: 03/22/18 10:02 Dose: 5 mg Furosemide (Lasix -) 80 mg PO DAILY [facility] Last Admin: 03/22/18 10:02 Dose: 80 mg Insulin Aspart (Novolog Vial) 15 units SQ TIDAC [facility] Last Admin: 03/22/18 12:33 Dose: 15 units Insulin Aspart (Novolog Vial Sliding Scale -) 1 vial SQ ACHS [facility]; Protocol Last Admin: 03/22/18 12:33 Dose: 4 units Tamsulosin HCl (Flomax -) 0.4 mg PO DAILY@0830 [facility] Last Admin: 03/22/18 09:01 Dose: 0.4 mg - Objective Vital Signs: Vital Signs Temperature 98.3 F 03/22/18 06:28 Pulse Rate 61 03/22/18 06:28 Respiratory Rate 20 03/22/18 06:28 Blood Pressure 134/83 03/22/18 06:28 O2 Sat by Pulse Oximetry (%) 94 L 03/21/18 21:00 Constitutional: Yes: Well Nourished, No Distress, Calm Cardiovascular: Yes: Regular Rate and Rhythm, S1, S2. No: Gallop, Murmur Respiratory: Yes: Regular, CTA Bilaterally. No: Accessory Muscle Use, Rales Extremities: No: Cold Edema: No Neurological: Yes: Alert Psychiatric: No: Agitated Labs: CBC, BMP 03/22/18 07:15 03/22/18 07:15 Assessment/Plan cxr: clear lungs echo 06/2017: mild dec lvef, nl rv, mild mr, mild-mod tr, rvsp 40-50, mild ar, mild pr ecg: sr, pvcs, mobitz 1, old rbbb a/p: 77 m hx cad, mi x2, cabg 2013, pci x2 2017, mobitz I, dchf, copd, dm, htn , hld, ckd here with sob, le edema. acute diastolic chf: -no signs acs -pt was on lasix 80 qd at home -improving with iv lasix here, increased to 60 iv bid 03/18 -bedscale not accurate. chair scale wts overall trend improving today at 242 from 247 peak -03/19: bun/creat up slightly. pt denies sob walking halls though pedal edema persists (is the edema new?? venous ins'y component?). given wt down and sx's improved, will cont lasix 60 iv bid today and reassess wt, exam and labs in am -03/20: clinically vol status much improved. cxr w/o chf. bun and cr rising, will change to po lasix now, 80 bid. -03/21: symptomatically improved, rpt CXR yest congestion cleared. wt trend ( chair scale recordings) 252 to 244 yest, ? 238 today?. bun/creat stable vs yest , slightly up vs prior trend. -03/22: bun/creat stable x 3d now. continue lasix 80 po qd -outpt renal fxn reassessment--may need decr lasix to 40 qd if bun/creat rises and remains euvolemic clinically pulm HTN: -likely WHO 2 sec to diast chf -no further w/u indicated at present--reconsider if PH persists on f/u echo as outpt once pt well-diuresed, or RV dilation seen in future cad: -stable, no signs acs -cont asa, statin abnl ecg, mobitz 1: -chronic finding htn: -stable overall. tight bp goal warranted here (<130/80_ -same meds as doing, outpt f/u hld: -cont statin ckd: -baseline creat 1.8-2.2 -bun and cr rising with iv lasix, will change to po lasix now, 80 bid. -renal following
--- NOTE | 2018-03-22 14:26 | PN ---
Progress Note (short form) - Note Progress Note: at [facility] - ambulation improved plans for d/c and compliance at home discussed diet and fluid intake legs are "back to normal " Vital Signs Period Temp Pulse Resp BP Sys/Whitehead Pulse Ox Last 24 Hr 98.1 F-98.3 F 60-66 18-20 127-136/71-83 94 neck supple heart s1/S2 lung clear bilat abd protuberant / soft / BS + Ext trace edema LE bilat surgical scar Knees left foot cooler than right + pulses bilat CBC, BMP 03/22/18 07:15 03/22/18 07:15 CBC, BMP 03/21/18 07:15 03/21/18 07:15 CBC, BMP 03/19/18 06:00 03/20/18 07:00 CBC, BMP 03/19/18 06:00 03/19/18 06:00 cxr: clear lungs echo 06/2017: mild dec lvef, nl rv, mild mr, mild-mod tr, rvsp 40-50, mild ar, mild pr ecg: sr, pvcs, mobitz 1, old rbbb Active Medications Acetaminophen (Tylenol -) 650 mg PO Q4H PRN PRN Reason: PAIN Last Admin: 03/21/18 20:17 Dose: 650 mg Aspirin (Ecotrin -) 162 mg PO DAILY [facility] Last Admin: 03/22/18 10:01 Dose: 162 mg Atorvastatin Calcium (Lipitor -) 40 mg PO HS [facility] Last Admin: 03/21/18 21:46 Dose: 40 mg Cyclobenzaprine HCl (Cyclobenzaprine Hcl) 5 mg PO DAILY [facility] Last Admin: 03/22/18 10:02 Dose: 5 mg Finasteride (Proscar -) 5 mg PO DAILY [facility] Last Admin: 03/22/18 10:02 Dose: 5 mg Furosemide (Lasix -) 80 mg PO DAILY [facility] Last Admin: 03/22/18 10:02 Dose: 80 mg Insulin Aspart (Novolog Vial) 15 units SQ TIDAC [facility] Last Admin: 03/22/18 12:33 Dose: 15 units Insulin Aspart (Novolog Vial Sliding Scale -) 1 vial SQ ACHS [facility]; Protocol Last Admin: 03/22/18 12:33 Dose: 4 units Tamsulosin HCl (Flomax -) 0.4 mg PO DAILY@0830 [facility] Last Admin: 03/22/18 09:01 Dose: 0.4 mg # CHF acute diastolic compensated - less dyspnea will resume home dose of lasix patient c/o leg spasms 2/2 to fluid shifts appreciate cardio amd renal follow up # DM ada diet sliding scale ada diet / statins # CKD renal function worse however has remained stable @ Cr 2.5 lasix changed to PO # BPH continue home meds probable d/c in am Problem List - Problems (1) CHF exacerbation Code(s): I50.9 - HEART FAILURE, UNSPECIFIED (2) Acute on chronic diastolic (congestive) heart failure Code(s): I50.33 - ACUTE ON CHRONIC DIASTOLIC (CONGESTIVE) HEART FAILURE (3) CHF (congestive heart failure) Code(s): I50.9 - HEART FAILURE, UNSPECIFIED (4) CKD (chronic kidney disease) Code(s): N18.9 - CHRONIC KIDNEY DISEASE, UNSPECIFIED (5) Cellulitis, leg Code(s): L03.119 - CELLULITIS OF UNSPECIFIED PART OF LIMB (6) Diabetes Code(s): E11.9 - TYPE 2 DIABETES MELLITUS WITHOUT COMPLICATIONS Qualifiers: Diabetes mellitus fci insulin use: with fci use Diabetes mellitus complication detail: with unspecified neuropathy (7) Electrolyte abnormality Code(s): E87.8 - OTH DISORDERS OF ELECTROLYTE AND FLUID BALANCE, NEC (8) HTN (hypertension) Code(s): I10 - ESSENTIAL (PRIMARY) HYPERTENSION (9) Hx of CABG Code(s): Z95.1 - PRESENCE OF AORTOCORONARY BYPASS GRAFT (10) Hyperlipidemia Code(s): E78.5 - HYPERLIPIDEMIA, UNSPECIFIED (11) Inflammatory arthritis Code(s): M19.90 - UNSPECIFIED OSTEOARTHRITIS, UNSPECIFIED SITE (12) Leg edema Code(s): R60.0 - LOCALIZED EDEMA (13) Musculoskeletal pain Code(s): M79.1 - MYALGIA * DO NOT USE * (14) Old myocardial infarction Code(s): I25.2 - OLD MYOCARDIAL INFARCTION (15) Sleep apnea Code(s): G47.30 - SLEEP APNEA, UNSPECIFIED (16) Spinal stenosis of lumbar region Code(s): M48.06 - SPINAL STENOSIS, LUMBAR REGION * DO NOT USE * (17) Swelling of joint, wrist, right Code(s): M25.431 - EFFUSION, RIGHT WRIST
[2018-03-22] MEDS: ATORVASTATIN CA 40 MG TABLET (FP) PO SCH (21:30)
[2018-03-23] MEDS: INSULIN SLIDING SCALE (NOVOLOG) 1 VIAL SQ SCH ×3 (06:28→16:13)
[2018-03-23] MEDS: INSULIN (NOVOLOG) ASPART 100 UNITS/ML 10ML VIAL SQ SCH ×3 (06:29→16:14)
[2018-03-23 07:04] LABS: ANION GAP 9 MMOL/L (8-16); BLOOD UREA NITROGEN 59 mg/dL (7-18); CALCIUM 8.7 mg/dL (8.5-10.1); CHLORIDE 95 mmol/L (98-107); CO2 30 mmol/L (21-32); CREATININE 2.4 mg/dL (0.55-1.3); GLUCOSE,RANDOM 215 mg/dL (74-106); SODIUM 133 mmol/L (136-145)
[2018-03-23] MEDS: FUROSEMIDE 40 MG TABLET (FP) PO SCH (09:18)
[2018-03-23] MEDS: ASPIRIN COATED 81 MG TABLET.EC PO SCH (09:18)
[2018-03-23] MEDS: TAMSULOSIN HCL 0.4 MG CAP PO SCH (09:18)
[2018-03-23] MEDS: FINASTERIDE 5 MG TABLET (FP) PO SCH (09:18)
[2018-03-23] MEDS: CYCLOBENZAPRINE HCL 5 MG TABLET PO SCH (09:18)
--- NOTE | 2018-03-23 10:07 | PN ---
Progress Note, Physician Chief Complaint: sob History of Present Illness: no more sob or feet swelling no palpit, cp - Current Medication List Current Medications: Active Medications Acetaminophen (Tylenol -) 650 mg PO Q4H PRN PRN Reason: PAIN Last Admin: 03/21/18 20:17 Dose: 650 mg Aspirin (Ecotrin -) 162 mg PO DAILY [facility] Last Admin: 03/23/18 09:18 Dose: 162 mg Atorvastatin Calcium (Lipitor -) 40 mg PO HS [facility] Last Admin: 03/22/18 21:30 Dose: 40 mg Cyclobenzaprine HCl (Cyclobenzaprine Hcl) 5 mg PO DAILY [facility] Last Admin: 03/23/18 09:18 Dose: 5 mg Finasteride (Proscar -) 5 mg PO DAILY [facility] Last Admin: 03/23/18 09:18 Dose: 5 mg Furosemide (Lasix -) 80 mg PO DAILY [facility] Last Admin: 03/23/18 09:18 Dose: 80 mg Insulin Aspart (Novolog Vial) 15 units SQ TIDAC [facility] Last Admin: 03/23/18 06:29 Dose: 15 units Insulin Aspart (Novolog Vial Sliding Scale -) 1 vial SQ ACHS [facility]; Protocol Last Admin: 03/23/18 06:28 Dose: Not Given Tamsulosin HCl (Flomax -) 0.4 mg PO DAILY@0830 [facility] Last Admin: 03/23/18 09:18 Dose: 0.4 mg - Objective Vital Signs: Vital Signs Temperature 97.9 F 03/23/18 10:00 Pulse Rate 67 03/23/18 10:00 Respiratory Rate 18 03/23/18 10:00 Blood Pressure 123/62 03/23/18 10:00 O2 Sat by Pulse Oximetry (%) 94 L 03/22/18 22:00 Constitutional: Yes: Well Nourished, No Distress, Calm Cardiovascular: Yes: Regular Rate and Rhythm, S1, S2. No: Gallop, Murmur Respiratory: Yes: Regular, CTA Bilaterally. No: Accessory Muscle Use, Rales, Wheezes Extremities: No: Cold Edema: No Neurological: Yes: Alert, Oriented Psychiatric: No: Agitated Labs: CBC, BMP 03/22/18 07:15 03/23/18 06:20 Assessment/Plan cxr: clear lungs echo 06/2017: mild dec lvef, nl rv, mild mr, mild-mod tr, rvsp 40-50, mild ar, mild pr ecg: sr, pvcs, mobitz 1, old rbbb a/p: 77 m hx cad, mi x2, cabg 2012, pci x2 2017, mobitz I, dchf, copd, dm, htn , hld, ckd here with sob, le edema. acute diastolic chf: -no signs acs -pt was on lasix 80 qd at home -improving with iv lasix here, increased to 60 iv bid 03/18 -bedscale not accurate. chair scale wts overall trend improving today at 242 from 247 peak -03/19: bun/creat up slightly. pt denies sob walking halls though pedal edema persists (is the edema new?? venous ins'y component?). given wt down and sx's improved, will cont lasix 60 iv bid today and reassess wt, exam and labs in am -03/20: clinically vol status much improved. cxr w/o chf. bun and cr rising, will change to po lasix now, 80 bid. -03/21: symptomatically improved, rpt CXR yest congestion cleared. wt trend ( chair scale recordings) 252 to 244 yest, ? 238 today?. bun/creat stable vs yest , slightly up vs prior trend. -03/22-present: bun/creat stable, remains euvolemic appearing. continue lasix 80 po qd -outpt renal fxn reassessment--may need decr lasix to 40 qd if bun/creat rises and remains euvolemic clinically pulm HTN: -likely WHO 2 sec to diast chf -no further w/u indicated at present--reconsider if PH persists on f/u echo as outpt once pt well-diuresed, or RV dilation seen in future cad: -stable, no signs acs -cont asa, statin abnl ecg, mobitz 1: -chronic finding htn: -stable overall. tight bp goal warranted here (<130/80_ -same meds as doing, outpt f/u hld: -cont statin ckd: -baseline creat 1.8-2.2 -bun and cr rising with iv lasix, will change to po lasix now, 80 bid. -renal following
[2018-03-23] MEDS ORDERED: INSULIN (NOVOLOG) ASPART 100 UNITS/ML 10ML VIAL ONE (11:02)
--- NOTE | 2018-03-23 12:37 | DS ---
Physical Examination Vital Signs: Vital Signs Temperature 97.9 F 03/23/18 10:00 Pulse Rate 67 03/23/18 10:00 Respiratory Rate 18 03/23/18 10:00 Blood Pressure 123/62 03/23/18 10:00 O2 Sat by Pulse Oximetry (%) 95 03/23/18 10:00 Findings/Remarks: 77 M with h/o CAD/TN, CHF, diabetes, hypertension, COPD and hyperlipidemia presenting to ED with SOB x 2 weeks. Pt endorses BLE swelling as well as worsening EGAN and SOB. Pt denies CP. Denies F/C. Denies N/V/D. Denies abdominal pain. Reports compliance with his meds, including lasix. During hospital stay discussed care at home with daughter who reports patient non compliant with diet -- "not used to low salt or diabetic diet" Responded to lasix / Cr upto 2.5, lasix changed to PO now slowly decreasing ( baseline 1.8-2.2). Edema desolved / dyspnea resolved Patient given instructions in [place] regarding adherence to diet. # CHF acute diastolic compensated - less dyspnea home dose of lasix leg edema resolved appreciate cardio and renal follow up # DM ada diet sliding scale ada diet / statins # CKD renal function worse however has remained stable @ Cr 2.5 lasix PO # BPH continue home meds flomax / proscar Constitutional: Yes: Well Nourished, No Distress, Calm Eyes: Yes: WNL, Conjunctiva Clear, EOM Intact HENT: Yes: Atraumatic, Normocephalic Neck: Yes: WNL, Supple, Trachea Midline Cardiovascular: Yes: Regular Rate and Rhythm Respiratory: Yes: Regular Gastrointestinal: Yes: Normal Bowel Sounds, Soft, Abdomen, Obese ...Rectal Exam: Yes: Deferred Renal/: Yes: WNL Breast(s): Yes: WNL Musculoskeletal: Yes: WNL (baseline / known to have OA / DJD), Back Pain, Joint Stiffness Extremities: Yes: WNL, Other (chronic changes). No: Deformity Edema: No Peripheral Pulses WNL: Yes Integumentary: Yes: WNL Wound/Incision: Yes: Clean/Dry Neurological: Yes: Alert, Oriented Psychiatric: Yes: Alert, Oriented Labs: CBC, BMP 03/22/18 07:15 03/23/18 06:20 Discharge Summary Reason For Visit: ACUTE ON CHRONIC CHF Current Active Problems CHF exacerbation (Acute) Diabetes Mellitus Osteoarthritis / DJD Condition: Improved - Instructions Referrals: Kanu Duran [Primary Care Provider] - Diamante Alvarado MD [Staff Physician] - Disposition: HOME - Home Medications Comprehensive Discharge Medication List: Ambulatory Orders Insulin Aspart [Novolog] 15 unit SQ [facility] 07/16/17 Insulin Degludec [Tresiba Flextouch U-100] 70 unit SQ DAILY 07/16/17 Aspirin [Ecotrin] 162 mg PO DAILY #60 tablet. 01/06/18 Atorvastatin Ca [Lipitor] 40 mg PO HS #30 tablet 01/06/18 Furosemide [Lasix] 40 mg PO BID #60 tablet 01/06/18 Omeprazole 80 mg PO DAILY #30 tablet. 01/06/18 Tamsulosin HCl [Flomax] 0.4 mg PO DAILY #30 capsule 01/06/18 proscar 5 mg q day
--- NOTE | 2018-03-23 13:41 | PN ---
Progress Note, Physician History of Present Illness: Pt seen and examined at bedside. He is awake and alert. He denies shortness of breath. He feels that his lower ext edema is improved. - Current Medication List Current Medications: Active Medications Acetaminophen (Tylenol -) 650 mg PO Q4H PRN PRN Reason: PAIN Last Admin: 03/21/18 20:17 Dose: 650 mg Aspirin (Ecotrin -) 162 mg PO DAILY [facility] Last Admin: 03/23/18 09:18 Dose: 162 mg Atorvastatin Calcium (Lipitor -) 40 mg PO HS [facility] Last Admin: 03/22/18 21:30 Dose: 40 mg Cyclobenzaprine HCl (Cyclobenzaprine Hcl) 5 mg PO DAILY [facility] Last Admin: 03/23/18 09:18 Dose: 5 mg Finasteride (Proscar -) 5 mg PO DAILY [facility] Last Admin: 03/23/18 09:18 Dose: 5 mg Furosemide (Lasix -) 80 mg PO DAILY [facility] Last Admin: 03/23/18 09:18 Dose: 80 mg Insulin Aspart (Novolog Vial) 15 units SQ TIDAC [facility] Last Admin: 03/23/18 10:56 Dose: 15 units Insulin Aspart (Novolog Vial Sliding Scale -) 1 vial SQ ACHS [facility]; Protocol Last Admin: 03/23/18 10:56 Dose: 2 units Tamsulosin HCl (Flomax -) 0.4 mg PO DAILY@0830 [facility] Last Admin: 03/23/18 09:18 Dose: 0.4 mg - Objective Vital Signs: Vital Signs Temperature 97.9 F 03/23/18 10:00 Pulse Rate 67 03/23/18 10:00 Respiratory Rate 18 03/23/18 10:00 Blood Pressure 123/62 03/23/18 10:00 O2 Sat by Pulse Oximetry (%) 95 03/23/18 10:00 Constitutional: Yes: Calm Eyes: Yes: Conjunctiva Clear HENT: Yes: Atraumatic Neck: Yes: Supple Cardiovascular: Yes: S1, S2 Respiratory: Yes: CTA Bilaterally Gastrointestinal: Yes: Soft Genitourinary: Yes: WNL Edema: Yes Edema: LLE: Trace, RLE: Trace Integumentary: Yes: Venous Stasis Changes Neurological: Yes: Oriented Psychiatric: Yes: Oriented Labs: CBC, BMP 03/22/18 07:15 03/23/18 06:20 Problem List - Problems (1) CHF exacerbation Code(s): I50.9 - HEART FAILURE, UNSPECIFIED (2) CHF (congestive heart failure) Code(s): I50.9 - HEART FAILURE, UNSPECIFIED (3) CKD (chronic kidney disease) Code(s): N18.9 - CHRONIC KIDNEY DISEASE, UNSPECIFIED (4) HTN (hypertension) Code(s): I10 - ESSENTIAL (PRIMARY) HYPERTENSION (5) Morbid obesity Code(s): E66.01 - MORBID (SEVERE) OBESITY DUE TO EXCESS CALORIES Assessment/Plan Current Medications Generic Name Dose Route Start Last Admin Trade Name Freq PRN Reason Stop Dose Admin Acetaminophen 650 mg 03/16/18 15:09 03/21/18 20:17 Tylenol - PO 650 mg Q4H PRN Administration PAIN Aspirin 162 mg 03/12/18 10:00 03/23/18 09:18 Ecotrin - PO 162 mg DAILY [facility] Administration Atorvastatin Calcium 40 mg 03/12/18 22:00 03/22/18 21:30 Lipitor - PO 40 mg HS [facility] Administration Cyclobenzaprine HCl 5 mg 03/21/18 10:00 03/23/18 09:18 Cyclobenzaprine Hcl PO 5 mg DAILY [facility] Administration Finasteride 5 mg 03/21/18 14:30 03/23/18 09:18 Proscar - PO 5 mg DAILY [facility] Administration Furosemide 80 mg 03/22/18 10:00 03/23/18 09:18 Lasix - PO 80 mg DAILY [facility] Administration Insulin Aspart 15 units 03/12/18 07:00 03/23/18 10:56 Novolog Vial SQ 15 units TIDAC [facility] Administration Insulin Aspart 1 vial 03/12/18 07:00 03/23/18 10:56 Novolog Vial Sliding Scale - SQ 2 units ACHS [facility] Administration Protocol Tamsulosin HCl 0.4 mg 03/12/18 08:30 03/23/18 09:18 Flomax - PO 0.4 mg DAILY@0830 [facility] Administration Impression 1. CKD 2. CHF 3. DM 4. obesity 5. HTN 6. dyspnea 7. HLD 8. CAD s/p cabg Plan - volumes status much improved - discussed low salt diet and fluid intake - will see pt in office for follow up - monitor renal function - will need ckd workup - will follow Dr Omer
[2018-03-23 14:45] VITALS: BP 140/68; PULSE 54; TEMP 98.2
== END 2018-03-23 17:39 | disposition home or self-care (01) | DRG 291 ==
LOC: JER 13:03 → JERBED 16:18 → J6S 19:15 → OBSVTOIN 23:20
PROVIDERS: ADMIT Family Medicine; ATTEND Family Medicine
DX: I13.0 Hypertensive heart and chronic kidney disease with heart failure and stage 1 through stage 4 chronic kidney disease, or unspecified chronic kidney disease (principal); I50.33 Acute on chronic diastolic (congestive) heart failure; L03.116 Cellulitis of left lower limb; Z68.41 Body mass index [BMI] 40.0-44.9, adult; L03.032 Cellulitis of left toe; E11.22 Type 2 diabetes mellitus with diabetic chronic kidney disease; N18.9 Chronic kidney disease, unspecified; E66.01 Morbid (severe) obesity due to excess calories; I44.1 Atrioventricular block, second degree; I25.2 Old myocardial infarction; J44.9 Chronic obstructive pulmonary disease, unspecified; Z95.1 Presence of aortocoronary bypass graft; Z79.4 Long term (current) use of insulin; I25.10 Atherosclerotic heart disease of native coronary artery without angina pectoris; Z87.891 Personal history of nicotine dependence; Z96.653 Presence of artificial knee joint, bilateral; M54.5 Low back pain; N40.0 Benign prostatic hyperplasia without lower urinary tract symptoms; I27.20 Pulmonary hypertension, unspecified
CPT/HCPCS: 36415; 71045-TC-FY; 80048; 80053; 81003; 81015; 82570; 82962; 83735; 83880; 84100; 84156; 84484; 85025; 85027; 93005; 93010; 97116-GP; 97161-GP; 99283-25; G0378

== ENCOUNTER 2018-04-30 10:35 | Inpatient (IN) | payer OTHER ==
--- NOTE | 2018-04-30 11:37 | PDOC ---
History of Present Illness - General Chief Complaint: Chest Pain Stated Complaint: SOB, CHEST PAIN Time Seen by Provider: 04/30/18 11:32 - History of Present Illness Initial Comments: 77yo M with PMH of diastolic CHF, CAD s/p PCI x 2, HTN, HLD, CKD, BPH, COPD, Asthma presenting with shortness of breath and chest pain x 2 weeks. Patient reports that his chest pain is rate 8/10 and described as stabbing. The pain does not radiate. Patient denies nausea, vomiting, or diaphoresis. He endorses dyspnea on exertion, feeling short of breath by walking across the room. Patient endorses a cough productive of yellowish phlegm x 1 day. He also reports anxiety regarding his chronic illness, but denies SI/HI. No fevers, chills, abdominal pain, or urinary symptoms. History obtained with [employer] [id number] Past History - Past Medical History Allergies/Adverse Reactions: Allergies Allergy/AdvReac Type Severity Reaction Status Date / Time No Known Allergies Allergy Verified 04/30/18 13:10 Home Medications: Ambulatory Orders Insulin Aspart [Novolog] 15 unit SQ ASDIR 07/16/17 Insulin Degludec [Tresiba Flextouch U-100] 70 unit SQ DAILY 07/16/17 Aspirin [Ecotrin] 162 mg PO DAILY #60 tablet. 01/06/18 Atorvastatin Ca [Lipitor] 40 mg PO HS #30 tablet 01/06/18 Tamsulosin HCl [Flomax] 0.4 mg PO DAILY #30 capsule 01/06/18 Acetaminophen [Tylenol .Regular Strength -] 650 mg PO Q4H PRN tablet 03/23/18 Finasteride [Proscar -] 5 mg PO DAILY tablet 03/23/18 Furosemide [Lasix -] 80 mg PO DAILY tablet 03/23/18 Insulin Sliding Scale [Novolog Vial Sliding Scale -] 1 vial SQ ACHS units 03/23 Cardiac Disorders: Yes (MS X 2, stents, CABG) COPD: Yes Diabetes: Yes GI Disorders: Yes (GERD) HTN: Yes Hypercholesterolemia: Yes - Surgical History Cardiac Surgery: Yes (CATH,cardiac bypass in ) Orthopedic Surgery: Yes (2 KNEE REPLACEMENTS) - Immunization History Immunization Up to Date: No - Suicide/Smoking/Psychosocial Hx Smoking Status: No Smoking History: Never smoked Have you smoked in the past 12 months: No Number of Cigarettes Smoked Daily: 0 If you are a former smoker, when did you quit?: 30 years ago Hx Alcohol Use: No Drug/Substance Use Hx: No Substance Use Type: None Hx Substance Use Treatment: No Review of Systems - Review of Systems Comments:: Constitutional: no fever, no chills HEENT: no throat pain, no dysphagia Cardiovascular: +chest pain, no palpitations Respiratory: +cough, +shortness of breath Gastrointestinal: no abdominal pain, no nausea, no vomiting Genitourinary: no dysuria, no frequency Musculoskeletal: no myalgia, no arthralgia Skin: no rash, no itching Neurologic: no headache, no dizziness *Physical Exam - Vital Signs Last Vital Signs Temp Pulse Resp BP Pulse Ox 98.1 F 48 L 18 132/69 91 L 04/30/18 10:43 04/30/18 10:43 04/30/18 10:43 04/30/18 10:43 04/30/18 10:43 - Physical Exam Comments: General: Awake, alert, and fully oriented, in no acute distress Head: No signs of trauma Eyes: EOMI, sclera anicteric ENT: Moist mucus membranes Neck: Normal ROM, supple Lungs: Crackles present at the right lower lung base Cardio: S1 and S2 present Abdomen: Soft, nontender. No guarding, no rebound, no masses Extremities: Normal range of motion. 2+ pitting edema present in BLE SKIN: Warm, Dry, normal turgor Neurologic: Cranial nerves II through XII grossly intact. Normal speech Moderate Sedation - Procedure Monitoring Vital Signs: Procedure Monitoring Vital Signs Temperature 98.1 F 04/30/18 10:43 Pulse Rate 48 L 04/30/18 10:43 Respiratory Rate 18 04/30/18 10:43 Blood Pressure 132/69 04/30/18 10:43 O2 Sat by Pulse Oximetry (%) 91 L 04/30/18 10:43 ED Treatment Course - LABORATORY CBC & Chemistry Diagram: 04/30/18 12:42 04/30/18 12:42 Medical Decision Making - Medical Decision Making 77yo M with PMH of diastolic CHF, CAD s/p PCI x 2, HTN, HLD, CKD, BPH, COPD, Asthma presenting with shortness of breath and chest pain x 2 weeks. -DDX includes but not limited to CHF exacerbation, COPD exacerbation, ACS, PNA -Labs: No leukocytosis, Hgb=10.1 which is near patient's baseline, elevated BUN and Cr which is consistent with patient's CKD -JKY=9093.2, elevated -EKG, rate 78, QTc 508, PVCs present as on previous EKG 03/11/18, no ST d/e -CXR: Single AP view the chest again reveals a large heart, sternal sutures, mild central congestive changes and now there appears to be a left base infiltrate with atelectasis and/or some fluid. There is right focal pleural thickening. SInce 03/20/2018, the retrocardiac changes have developed. Correlation recommended -Lasix 40 IV -Discussed case with [employer] for Dr. Alvarado who accepted patient for admission 04/30/18 15:15 *DC/Admit/Observation/Transfer Diagnosis at time of Disposition: CHF exacerbation - Discharge Dispostion Condition at time of disposition: Guarded Decision to Admit order: Yes - Referrals - Patient Instructions - Post Discharge Activity
[2018-04-30 12:58] LABS: BASO % 0.9 % (0-2.0); EOS % 1.1 % (0-4.5); HEMATOCRIT 30.5 % (35.4-49); HEMOGLOBIN 10.1 GM/dL (11.7-16.9); LYMPH % 9.9 % (8-40); MCH 26.4 pg (25.7-33.7); MEAN CELL VOLUME 79.9 fl (80-96); MEAN PLT VOLUME 8.7 fl (7.5-11.1); MONO % 6.5 % (3.8-10.2); NEUT % 81.6 % (42.8-82.8); PLATELET COUNT 168 K/MM3 (134-434); RBC 3.81 M/mm3 (4.00-5.60); RDW 17.9 % (11.9-15.9); WHITE BLOOD COUNT 6.8 K/mm3 (4.0-10.0)
[2018-04-30 13:43] LABS: ALK PHOS 119 U/L (45-117); ANION GAP 8 MMOL/L (8-16); BILIRUBIN,TOTAL 0.5 mg/dL (0.2-1); BLOOD UREA NITROGEN 31 mg/dL (7-18); CALCIUM 8.2 mg/dL (8.5-10.1); CHLORIDE 110 mmol/L (98-107); CO2 24 mmol/L (21-32); GLUCOSE,RANDOM 75 mg/dL (74-106); N-TERMINAL BNP 6774.2 pg/ml (5-450); POTASSIUM 4.2 mmol/L (3.5-5.1); SGOT/AST 12 U/L (15-37); SGPT/ALT 12 U/L (13-61); SODIUM 141 mmol/L (136-145); TOT PROT 6.6 g/dl (6.4-8.2)
--- NOTE | 2018-04-30 14:02 | PDOC ---
Attending Attestation - Resident Resident Name: EveYaoRachel - ED Attending Attestation I have performed the following: I have examined & evaluated the patient, The case was reviewed & discussed with the resident, I agree w/resident's findings & plan - HPI HPI: 04/30/18 13:59 77-year-old male with history of CHF presents with 1-2 weeks of progressive volume overload and dyspnea on exertion, bilateral leg edema. No chest pain. - Physicial Exam PE: 04/30/18 14:00 Vitals as noted, O2 sat 92% on room air Bibasilar crackles with slightly decreased breath sounds at the left base 1-2+ pitting edema - Medical Decision Making 04/30/18 14:00 77-year-old male with history of CHF presents with volume overload and dyspnea on exertion, likely secondary to pulmonary edema. Troponin negative, baseline mild anemia and renal insufficiency Chest x-ray confirms congestive changes with left base opacity, likely effusion IV Lasix given in ED Proceed with telemetry admission 04/30/18 14:49 EKG with scattered premature supraventricular and ventricular contractions
[2018-04-30] MEDS ORDERED: FUROSEMIDE 40 MG/4 ML INJECTABLE VIAL IVPUSH ONE (15:17)
--- NOTE | 2018-04-30 16:16 | EKG ---
Test Reason : Blood Pressure : / mmHG Vent. Rate : 078 BPM Atrial Rate : 078 BPM P-R Int : 000 ms QRS Dur : 134 ms QT Int : 446 ms P-R-T Axes : 030 -26 034 degrees QTc Int : 508 ms POOR DATA QUALITY, INTERPRETATION MAY BE ADVERSELY AFFECTED UNDETERMINED RHYTHM RIGHT BUNDLE BRANCH BLOCK ABNORMAL ECG WHEN COMPARED WITH ECG OF 11-MAR-2018 14:17, CURRENT UNDETERMINED RHYTHM PRECLUDES RHYTHM COMPARISON, NEEDS REVIEW CRITERIA FOR INFERIOR INFARCT ARE NO LONGER PRESENT Confirmed by KASANDRA SANZ MD ([id number]) on 04/30/2018 4:15:56 PM Referred By: Confirmed By:KASANDRA SANZ MD
[2018-04-30] MEDS: FUROSEMIDE 40 MG/4 ML INJECTABLE VIAL IVPUSH SCH (16:45)
--- NOTE | 2018-04-30 17:21 | HP ---
Admitting History and Physical - Admission Chief Complaint: SOB History of Present Illness: 77yo M with PMH of diastolic CHF, CAD s/p PCI x 2, HTN, HLD, CKD, BPH, COPD, Asthma presenting with shortness of breath and chest pain x 2 weeks. Patient reports that his chest pain is rate 8/10 and described as stabbing. The pain does not radiate. Patient denies nausea, vomiting, or diaphoresis. He endorses dyspnea on exertion, feeling short of breath by walking across the room. Patient endorses a cough productive of yellowish phlegm x 1 day. He also reports anxiety regarding his chronic illness, but denies SI/HI. No fevers, chills, abdominal pain, or urinary symptoms. History Source: Patient, Medical Record Limitations to Obtaining History: No Limitations - Past Medical History [employer]: Yes: Peripheral Neuropathy Cardiovascular: Yes: CHF, HTN, Hyperlipdemia, IA, Other (CABG) Pulmonary: Yes: COPD, Other (former smoker) Renal/: Yes: Renal Inusuff Musculoskeletal: Yes: Chronic low back pain, Osteoarthritis Endocrine: Yes: Diabetes Mellitus - Past Surgical History Past Surgical History: Yes: Bypass, CABG, Joint Replacement (bilateral knees) - Smoking History Smoking history: Never smoked Have you smoked in the past 12 months: No Aproximately how many cigarettes per day: 0 If you are a former smoker, when did you quit?: 30 years ago - Alcohol/Substance Use Hx Alcohol Use: No History of Substance Use: reports: None - Social History ADL: Family Assistance History of Recent Travel: No Home Medications - Allergies Allergies/Adverse Reactions: Allergies Allergy/AdvReac Type Severity Reaction Status Date / Time No Known Allergies Allergy Verified 04/30/18 13:10 - Home Medications Home Medications: Ambulatory Orders Insulin Aspart [Novolog] 15 unit SQ ASDIR 07/16/17 Insulin Degludec [Tresiba Flextouch U-100] 70 unit SQ DAILY 07/16/17 Aspirin [Ecotrin] 162 mg PO DAILY #60 tablet. 01/06/18 Atorvastatin Ca [Lipitor] 40 mg PO HS #30 tablet 01/06/18 Tamsulosin HCl [Flomax] 0.4 mg PO DAILY #30 capsule 01/06/18 Acetaminophen [Tylenol .Regular Strength -] 650 mg PO Q4H PRN tablet 03/23/18 Finasteride [Proscar -] 5 mg PO DAILY tablet 03/23/18 Furosemide [Lasix -] 80 mg PO DAILY tablet 03/23/18 Insulin Sliding Scale [Novolog Vial Sliding Scale -] 1 vial SQ ACHS units 03/23 Family Disease History - Family Disease History Family Disease History: Diabetes: Father, Mother Review of Systems - Review of Systems Constitutional: reports: Other (weight gain). denies: Chills, Fever Eyes: reports: No Symptoms HENT: reports: No Symptoms Neck: reports: No Symptoms Cardiovascular: reports: Shortness of Breath. denies: Chest Pain, Palpitations Respiratory: reports: Cough, SOB on Exertion. denies: SOB Gastrointestinal: reports: No Symptoms Genitourinary: reports: No Symptoms Breasts: reports: No Symptoms Reported Musculoskeletal: reports: No Symptoms Integumentary: reports: No Symptoms Neurological: reports: No Symptoms, Pre-Existing Deficit Endocrine: reports: No Symptoms, Unexplained Weight Gain Hematology/Lymphatic: reports: No Symptoms Psychiatric: reports: No Symptoms Physical Examination Vital Signs: Vital Signs Temperature 98.1 F 04/30/18 10:43 Pulse Rate 48 L 04/30/18 10:43 Respiratory Rate 18 04/30/18 10:43 Blood Pressure 132/69 04/30/18 10:43 O2 Sat by Pulse Oximetry (%) 91 L 04/30/18 10:43 Constitutional: Yes: Well Nourished, No Distress, Calm Eyes: Yes: Conjunctiva Clear, EOM Intact HENT: Yes: Atraumatic, Normocephalic Neck: Yes: Supple, Trachea Midline Cardiovascular: Yes: Regular Rate and Rhythm Respiratory: Yes: Rales, SOB, SOB on Exertion Gastrointestinal: Yes: Normal Bowel Sounds, Abdomen, Obese Labs: CBC, BMP 04/30/18 12:42 04/30/18 12:42 Problem List - Problems (1) CHF exacerbation Code(s): I50.9 - HEART FAILURE, UNSPECIFIED (2) Acute on chronic diastolic (congestive) heart failure Code(s): I50.33 - ACUTE ON CHRONIC DIASTOLIC (CONGESTIVE) HEART FAILURE (3) BPH associated with nocturia Code(s): N40.1 - BENIGN PROSTATIC HYPERPLASIA WITH LOWER URINARY TRACT SYMP; R35.1 - NOCTURIA (4) CKD (chronic kidney disease) Code(s): N18.9 - CHRONIC KIDNEY DISEASE, UNSPECIFIED (5) Diabetes Code(s): E11.9 - TYPE 2 DIABETES MELLITUS WITHOUT COMPLICATIONS Qualifiers: Diabetes mellitus prison insulin use: 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 Diabetes mellitus complication detail: with unspecified neuropathy (6) Leg edema Code(s): R60.0 - LOCALIZED EDEMA (7) HTN (hypertension) Code(s): I10 - ESSENTIAL (PRIMARY) HYPERTENSION (8) Hx of CABG Code(s): Z95.1 - PRESENCE OF AORTOCORONARY BYPASS GRAFT (9) Hyperlipidemia Code(s): E78.5 - HYPERLIPIDEMIA, UNSPECIFIED (10) Inflammatory arthritis Code(s): M19.90 - UNSPECIFIED OSTEOARTHRITIS, UNSPECIFIED SITE (11) Morbid obesity Code(s): E66.01 - MORBID (SEVERE) OBESITY DUE TO EXCESS CALORIES (12) Osteoarthritis Code(s): M19.90 - UNSPECIFIED OSTEOARTHRITIS, UNSPECIFIED SITE Qualifiers: Osteoarthritis location: hand Osteoarthritis type: primary Laterality: right Qualified Code(s): M19.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
[2018-04-30] MEDS: ATORVASTATIN CA 40 MG TABLET (FP) PO SCH (22:51)
[2018-04-30] MEDS: INSULIN SLIDING SCALE (NOVOLOG) 1 VIAL SQ SCH (22:52)
[2018-05-01] MEDS: INSULIN SLIDING SCALE (NOVOLOG) 1 VIAL SQ SCH ×4 (06:07→21:05)
[2018-05-01] MEDS: FUROSEMIDE 40 MG/4 ML INJECTABLE VIAL IVPUSH SCH ×2 (06:09→13:13)
[2018-05-01 07:15] LABS: HEMOGLOBIN 9.8 GM/dL (11.7-16.9); MCH 24.6 pg (25.7-33.7); MCHC 30.8 g/dl (32.0-35.9); MEAN CELL VOLUME 79.8 fl (80-96); MEAN PLT VOLUME 8.6 fl (7.5-11.1); PLATELET COUNT 160 K/MM3 (134-434); RBC 4.01 M/mm3 (4.00-5.60); RDW 17.8 % (11.9-15.9); WHITE BLOOD COUNT 6.5 K/mm3 (4.0-10.0)
[2018-05-01 08:43] LABS: BLOOD UREA NITROGEN 32 mg/dL (7-18); CHLORIDE 108 mmol/L (98-107); GLUCOSE,RANDOM 108 mg/dL (74-106); POTASSIUM 4.3 mmol/L (3.5-5.1); SODIUM 141 mmol/L (136-145)
[2018-05-01 08:44] LABS: ANION GAP 7 MMOL/L (8-16); CALCIUM 8.2 mg/dL (8.5-10.1); CO2 26 mmol/L (21-32); MAGNESIUM 2.3 mg/dL (1.8-2.4)
[2018-05-01] MEDS: ASPIRIN COATED 81 MG TABLET.EC PO SCH (09:33)
[2018-05-01] MEDS: FINASTERIDE 5 MG TABLET (FP) PO SCH (09:33)
[2018-05-01] MEDS: TAMSULOSIN HCL 0.4 MG CAP PO SCH (09:33)
[2018-05-01] MEDS: ACETAMINOPHEN 325 MG TABLET (FP) PO PRN ×2 (11:13→21:03)
--- NOTE | 2018-05-01 11:25 | PN ---
Progress Note (short form) - Note Progress Note: 77 y/o male found sitting in chair. O2 in place. Vital Signs Period Temp Pulse Resp BP Sys/Whitehead Pulse Ox Last 24 Hr 98.1 F-98.7 F 66-91 17-20 132-155/71-86 95-97 CBC, BMP 05/01/18 06:25 05/01/18 06:25 HEENT- Normocephalic Neck- supple Lungs- CTAB Heart- S1/S2 Abd- soft, nt Ext- b/l 1 +pitting edema Active Medications Acetaminophen (Tylenol -) 650 mg PO Q4H PRN PRN Reason: PAIN 1-3 Last Admin: 05/01/18 11:13 Dose: 650 mg Aspirin (Ecotrin -) 162 mg PO DAILY [facility] Last Admin: 05/01/18 09:33 Dose: 162 mg Atorvastatin Calcium (Lipitor -) 40 mg PO HS [facility] Last Admin: 04/30/18 22:51 Dose: 40 mg Finasteride (Proscar -) 5 mg PO DAILY [facility] Last Admin: 05/01/18 09:33 Dose: 5 mg Furosemide (Lasix Injection -) 40 mg IVPUSH BID@0600,1400 [facility] Last Admin: 05/01/18 06:09 Dose: 40 mg Insulin Aspart (Novolog Vial Sliding Scale -) 1 vial SQ ACHS [facility]; Protocol Last Admin: 05/01/18 11:14 Dose: Not Given Tamsulosin HCl (Flomax -) 0.4 mg PO 0830 [facility] Last Admin: 05/01/18 09:33 Dose: 0.4 mg #CHF exacerbation Continue O2 IV Lasix BID #IDDM Novolog sliding scale #HTN BP stable Problem List - Problems (1) CHF exacerbation Code(s): I50.9 - HEART FAILURE, UNSPECIFIED (2) Acute on chronic diastolic (congestive) heart failure Code(s): I50.33 - ACUTE ON CHRONIC DIASTOLIC (CONGESTIVE) HEART FAILURE (3) BPH associated with nocturia Code(s): N40.1 - BENIGN PROSTATIC HYPERPLASIA WITH LOWER URINARY TRACT SYMP; R35.1 - NOCTURIA (4) CKD (chronic kidney disease) Code(s): N18.9 - CHRONIC KIDNEY DISEASE, UNSPECIFIED (5) Diabetes Code(s): E11.9 - TYPE 2 DIABETES MELLITUS WITHOUT COMPLICATIONS Qualifiers: Diabetes mellitus jail insulin use: with jail use Diabetes mellitus complication detail: with unspecified neuropathy (6) Leg edema Code(s): R60.0 - LOCALIZED EDEMA (7) HTN (hypertension) Code(s): I10 - ESSENTIAL (PRIMARY) HYPERTENSION (8) Hx of CABG Code(s): Z95.1 - PRESENCE OF AORTA CORONARY BYPASS GRAFT (9) Hyperlipidemia Code(s): E78.5 - HYPERLIPIDEMIA, UNSPECIFIED (10) Inflammatory arthritis Code(s): M19.90 - UNSPECIFIED OSTEOARTHRITIS, UNSPECIFIED SITE (11) Morbid obesity Code(s): E66.01 - MORBID (SEVERE) OBESITY DUE TO EXCESS CALORIES (12) Osteoarthritis Code(s): M19.90 - UNSPECIFIED OSTEOARTHRITIS, UNSPECIFIED SITE Qualifiers: Osteoarthritis location: hand Osteoarthritis type: primary Laterality: right Qualified Code(s): M19.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
[2018-05-01] MEDS: ATORVASTATIN CA 40 MG TABLET (FP) PO SCH (21:04)
[2018-05-02] MEDS: INSULIN SLIDING SCALE (NOVOLOG) 1 VIAL SQ SCH ×4 (06:32→21:39)
[2018-05-02] MEDS: FUROSEMIDE 40 MG/4 ML INJECTABLE VIAL IVPUSH SCH ×2 (06:32→15:03)
[2018-05-02 07:39] LABS: BASO % 0.6 % (0-2.0); EOS % 2.2 % (0-4.5); HEMATOCRIT 32.8 % (35.4-49); HEMOGLOBIN 10.1 GM/dL (11.7-16.9); LYMPH % 12.2 % (8-40); MCH 24.7 pg (25.7-33.7); MCHC 30.8 g/dl (32.0-35.9); MEAN CELL VOLUME 80.2 fl (80-96); MEAN PLT VOLUME 8.3 fl (7.5-11.1); MONO % 8.2 % (3.8-10.2); NEUT % 76.8 % (42.8-82.8); PLATELET COUNT 154 K/MM3 (134-434); RBC 4.09 M/mm3 (4.00-5.60); RDW 17.7 % (11.9-15.9); WHITE BLOOD COUNT 6.9 K/mm3 (4.0-10.0)
[2018-05-02 08:21] LABS: ANION GAP 7 MMOL/L (8-16); BLOOD UREA NITROGEN 37 mg/dL (7-18); CALCIUM 8.6 mg/dL (8.5-10.1); CHLORIDE 104 mmol/L (98-107); CO2 26 mmol/L (21-32); GLUCOSE,RANDOM 119 mg/dL (74-106); POTASSIUM 4.2 mmol/L (3.5-5.1); SODIUM 137 mmol/L (136-145)
[2018-05-02] MEDS: FINASTERIDE 5 MG TABLET (FP) PO SCH (10:09)
[2018-05-02] MEDS: TAMSULOSIN HCL 0.4 MG CAP PO SCH (10:09)
[2018-05-02] MEDS: ASPIRIN COATED 81 MG TABLET.EC PO SCH (10:09)
[2018-05-02] MEDS: ACETAMINOPHEN 325 MG TABLET (FP) PO PRN (10:11)
--- NOTE | 2018-05-02 16:27 | PN ---
Progress Note (short form) - Note Progress Note: patient sitting up in bed reports shortness of breath some improvement from time of admission also noted decreased edema to LE Vital Signs Period Temp Pulse Resp BP Sys/Whitehead Pulse Ox Last 24 Hr 97 F-99.3 F 46-64 18-20 137-151/54-80 97-97 neck supple heart s1/S2 Lung decreased at bases / rales bilat abd soft obese ext + edema bilat CBC, BMP 05/02/18 06:53 05/02/18 06:53 Active Medications Acetaminophen (Tylenol -) 650 mg PO Q4H PRN PRN Reason: PAIN 1-3 Last Admin: 05/02/18 10:11 Dose: 650 mg Aspirin (Ecotrin -) 162 mg PO DAILY [facility] Last Admin: 05/02/18 10:09 Dose: 162 mg Atorvastatin Calcium (Lipitor -) 40 mg PO HS [facility] Last Admin: 05/01/18 21:04 Dose: 40 mg Finasteride (Proscar -) 5 mg PO DAILY [facility] Last Admin: 05/02/18 10:09 Dose: 5 mg Furosemide (Lasix Injection -) 40 mg IVPUSH BID@0600,1400 [facility] Last Admin: 05/02/18 15:03 Dose: 40 mg Furosemide (Lasix Injection -) 40 mg IVPUSH ONCE ONE Stop: 05/02/18 16:31 Insulin Aspart (Novolog Vial Sliding Scale -) 1 vial SQ [facility]; Protocol Last Admin: 05/02/18 12:29 Dose: Not Given Tamsulosin HCl (Flomax -) 0.4 mg PO 0830 [facility] Last Admin: 05/02/18 10:09 Dose: 0.4 mg # HF admits compliant with meds - discussed dietary indiscretions as possible culprit will need to adjust home meds - as recurrent HF give additiona dose of IV lasix now -- continue with BID dosing daily weights trend renal function # CKD trend renal function know to nephro # BPH continue home meds # DM statins / asa sliding scale bs ACEi once renal function stable Problem List - Problems (1) CHF exacerbation Code(s): I50.9 - HEART FAILURE, UNSPECIFIED (2) Acute on chronic diastolic (congestive) heart failure Code(s): I50.33 - ACUTE ON CHRONIC DIASTOLIC (CONGESTIVE) HEART FAILURE (3) BPH associated with nocturia Code(s): N40.1 - BENIGN PROSTATIC HYPERPLASIA WITH LOWER URINARY TRACT SYMP; R35.1 - NOCTURIA (4) CKD (chronic kidney disease) Code(s): N18.9 - CHRONIC KIDNEY DISEASE, UNSPECIFIED (5) Diabetes Code(s): E11.9 - TYPE 2 DIABETES MELLITUS WITHOUT COMPLICATIONS Qualifiers: Diabetes mellitus penitentiary insulin use: with penitentiary use Diabetes mellitus complication detail: with unspecified neuropathy (6) Leg edema Code(s): R60.0 - LOCALIZED EDEMA (7) HTN (hypertension) Code(s): I10 - ESSENTIAL (PRIMARY) HYPERTENSION (8) Hx of CABG Code(s): Z95.1 - PRESENCE OF AORTOCORONARY BYPASS GRAFT (9) Hyperlipidemia Code(s): E78.5 - HYPERLIPIDEMIA, UNSPECIFIED (10) Inflammatory arthritis Code(s): M19.90 - UNSPECIFIED OSTEOARTHRITIS, UNSPECIFIED SITE (11) Morbid obesity Code(s): E66.01 - MORBID (SEVERE) OBESITY DUE TO EXCESS CALORIES (12) Osteoarthritis Code(s): M19.90 - UNSPECIFIED OSTEOARTHRITIS, UNSPECIFIED SITE Qualifiers: Osteoarthritis location: hand Osteoarthritis type: primary Laterality: right Qualified Code(s): M19.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
[2018-05-02] MEDS ORDERED: FUROSEMIDE 40 MG/4 ML INJECTABLE VIAL IVPUSH ONE (16:30)
--- NOTE | 2018-05-02 18:25 | CON.NEP ---
Consult Consult Specialty:: nephrology Referred by:: dr miller Reason for Consultation:: CKD / DM / HF - History of Present Illness Chief Complaint: sob and chest pain History of Present Illness: 77yo M Admitted with shortness of breath and chest pain x 2 weeks. Patient 810 and described as stabbing. does not radiate. has dyspnea on exertion, walking across the room. cough productive of yellowish phlegm x 1 day. 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 Cardio/Vascular: Yes: CHF, HTN, Hyperlipdemia, [place], Other (CABG) Pulmonary: Yes: COPD, Other (former smoker) Renal/: Yes: Renal Inusuff Musculoskeletal: Yes: Chronic low back pain, Osteoarthritis Endocrine: Yes: Diabetes Mellitus - Past Surgical History Past Surgical History: Yes: Bypass, CABG, Joint Replacement (bilateral knees) - Alcohol/Substance Use Hx Alcohol Use: No History of Substance Use: reports: None - Smoking History Smoking history: Never smoked Have you smoked in the past 12 months: No Aproximately how many cigarettes per day: 0 If you are a former smoker, when did you quit?: 30 years ago - Social History Usual Living Arrangement: With Child ADL: Family Assistance History of Recent Travel: No Home Medications - Allergies Allergies/Adverse Reactions: Allergies Allergy/AdvReac Type Severity Reaction Status Date / Time No Known Allergies Allergy Verified 04/30/18 13:10 - Home Medications Home Medications: Ambulatory Orders Insulin Aspart [Novolog] 15 unit SQ ASDIR 07/16/17 Insulin Degludec [Tresiba Flextouch U-100] 70 unit SQ DAILY 07/16/17 Aspirin [Ecotrin] 162 mg PO DAILY #60 tablet. 01/06/18 Atorvastatin Ca [Lipitor] 40 mg PO HS #30 tablet 01/06/18 Tamsulosin HCl [Flomax] 0.4 mg PO DAILY #30 capsule 01/06/18 Acetaminophen [Tylenol .Regular Strength -] 650 mg PO Q4H PRN tablet 03/23/18 Finasteride [Proscar -] 5 mg PO DAILY tablet 03/23/18 Furosemide [Lasix -] 80 mg PO DAILY tablet 03/23/18 Insulin Sliding Scale [Novolog Vial Sliding Scale -] 1 vial SQ ACHS units 03/23 Family Disease History - Family Disease History Family Disease History: Diabetes: Father, Mother Nephrology Consult - Height Height: 5 ft 6 in - Weight Weight: 253 lb - BMI Body Mass Index (BMI): 40.8 - Lab Results CBC,BMP: CBC, BMP 05/02/18 06:53 05/02/18 06:53 Anion Gap: Anion Gap Anion Gap 7 MMOL/L (8-16) L 05/02/18 06:53 - Physical Examination Vital Signs: Vital Signs Temperature 97.2 F L 05/02/18 14:00 Pulse Rate 63 05/02/18 14:00 Respiratory Rate 20 05/02/18 09:00 Blood Pressure 149/80 05/02/18 14:00 O2 Sat by Pulse Oximetry (%) 97 05/02/18 09:00 Constitutional: Yes: Obese Eyes: Yes: WNL, Conjunctiva Clear, EOM Intact HENT: Yes: WNL, Atraumatic, Normocephalic Neck: Yes: WNL, Supple, Trachea Midline Respiratory: Yes: WNL, Regular, CTA Bilaterally Gastrointestinal: Yes: WNL, Normal Bowel Sounds Renal/: Yes: WNL Musculoskeletal: Yes: WNL Extremities: Yes: WNL Edema: Yes Edema: LLE: 3+, RLE: 3+ Peripheral Pulses WNL: Yes Integumentary: Yes: WNL Neurological: Yes: WNL, Alert, Oriented Psychiatric: Yes: WNL, Alert, Oriented Assessment/Plan HF rales, leg edema on high dose lasix CKD Rec/Plan daily weights continue on increased dose of lasix bid on high dose lasix add thiazide with lasix for more diuresisi
[2018-05-02] MEDS: ATORVASTATIN CA 40 MG TABLET (FP) PO SCH (21:34)
[2018-05-03] MEDS: CHLORTHALIDONE 25 MG TABLET PO SCH (06:00)
[2018-05-03] MEDS ORDERED: PT OWN MED DRAWER 7, Y5N ONE (06:40)
[2018-05-03] MEDS: INSULIN SLIDING SCALE (NOVOLOG) 1 VIAL SQ SCH ×4 (06:43→21:58)
[2018-05-03] MEDS: FUROSEMIDE 40 MG/4 ML INJECTABLE VIAL IVPB SCH ×2 (07:07→15:08)
[2018-05-03] MEDS: TAMSULOSIN HCL 0.4 MG CAP PO SCH (09:54)
[2018-05-03] MEDS: ASPIRIN COATED 81 MG TABLET.EC PO SCH (09:55)
[2018-05-03] MEDS: FINASTERIDE 5 MG TABLET (FP) PO SCH (09:55)
[2018-05-03] MEDS: ACETAMINOPHEN 325 MG TABLET (FP) PO PRN ×2 (09:55→21:58)
[2018-05-03 12:31] LABS: ALBUMIN 2.9 g/dl (3.4-5.0); ALK PHOS 108 U/L (45-117); ANION GAP 6 MMOL/L (8-16); BILIRUBIN,TOTAL 0.6 mg/dL (0.2-1); BLOOD UREA NITROGEN 39 mg/dL (7-18); CALCIUM 8.4 mg/dL (8.5-10.1); CHLORIDE 105 mmol/L (98-107); CO2 28 mmol/L (21-32); GLUCOSE,RANDOM 118 mg/dL (74-106); POTASSIUM 4.3 mmol/L (3.5-5.1); SGOT/AST 7 U/L (15-37); SGPT/ALT 12 U/L (13-61); SODIUM 139 mmol/L (136-145); TOT PROT 6.6 g/dl (6.4-8.2)
[2018-05-03 14:12] LABS: BASO % 0.8 % (0-2.0); EOS % 1.3 % (0-4.5); HEMATOCRIT 33.1 % (35.4-49); HEMOGLOBIN 10.2 GM/dL (11.7-16.9); LYMPH % 10.9 % (8-40); MCH 24.6 pg (25.7-33.7); MCHC 30.8 g/dl (32.0-35.9); MEAN CELL VOLUME 79.8 fl (80-96); MEAN PLT VOLUME 8.8 fl (7.5-11.1); MONO % 5.6 % (3.8-10.2); NEUT % 81.4 % (42.8-82.8); PLATELET COUNT 163 K/MM3 (134-434); RBC 4.15 M/mm3 (4.00-5.60); RDW 17.3 % (11.9-15.9); WHITE BLOOD COUNT 7.4 K/mm3 (4.0-10.0)
--- NOTE | 2018-05-03 19:56 | PN ---
Progress Note (short form) - Note Progress Note: patient sitting up in bed reports less shortness of breath improvement from time of admission also noted decreased edema to LE reviewed and appreciate nephrology consult Vital Signs Period Temp Pulse Resp BP Sys/Whitehead Pulse Ox Last 24 Hr 97 F-98.4 F 54-86 20-20 109-160/48-77 97-97 neck supple heart s1/S2 Lung decreased at bases / rales bilat bases abd soft obese ext + edema bilat CBC, BMP 05/03/18 06:40 05/03/18 06:40 CBC, BMP 05/02/18 06:53 05/02/18 06:53 Active Medications Acetaminophen (Tylenol -) 650 mg PO Q4H PRN PRN Reason: PAIN 1-3 Last Admin: 05/03/18 09:55 Dose: 650 mg Aspirin (Ecotrin -) 162 mg PO DAILY [facility] Last Admin: 05/03/18 09:55 Dose: 162 mg Atorvastatin Calcium (Lipitor -) 40 mg PO HS [facility] Last Admin: 05/02/18 21:34 Dose: 40 mg Chlorthalidone (Hygroton -) 25 mg PO DAILY@0500 [facility] Last Admin: 05/03/18 06:00 Dose: 25 mg Finasteride (Proscar -) 5 mg PO DAILY [facility] Last Admin: 05/03/18 09:55 Dose: 5 mg Furosemide (Lasix Injection -) 60 mg IVPB BID@0600,1400 [facility] Last Admin: 05/03/18 15:08 Dose: 60 mg Insulin Aspart (Novolog Vial Sliding Scale -) 1 vial SQ ACHS [facility]; Protocol Last Admin: 05/03/18 17:46 Dose: Not Given Tamsulosin HCl (Flomax -) 0.4 mg PO 0830 [facility] Last Admin: 05/03/18 09:54 Dose: 0.4 mg # HF admits compliant with meds - discussed dietary indiscretions as possible culprit will need to adjust home meds - as recurrent HF continue with BID dosing daily weights trend renal function # CKD trend renal function know to nephro # BPH continue home meds # DM statins / asa sliding scale bs ACEi once renal function stable Problem List - Problems (1) CHF exacerbation Code(s): I50.9 - HEART FAILURE, UNSPECIFIED (2) Acute on chronic diastolic (congestive) heart failure Code(s): I50.33 - ACUTE ON CHRONIC DIASTOLIC (CONGESTIVE) HEART FAILURE (3) BPH associated with nocturia Code(s): N40.1 - BENIGN PROSTATIC HYPERPLASIA WITH LOWER URINARY TRACT SYMP; R35.1 - NOCTURIA (4) CKD (chronic kidney disease) Code(s): N18.9 - CHRONIC KIDNEY DISEASE, UNSPECIFIED (5) Diabetes Code(s): E11.9 - TYPE 2 DIABETES MELLITUS WITHOUT COMPLICATIONS Qualifiers: Diabetes mellitus snf insulin use: with snf use Diabetes mellitus complication detail: with unspecified neuropathy (6) Leg edema Code(s): R60.0 - LOCALIZED EDEMA (7) HTN (hypertension) Code(s): I10 - ESSENTIAL (PRIMARY) HYPERTENSION (8) Hx of CABG Code(s): Z95.1 - PRESENCE OF AORTOCORONARY BYPASS GRAFT (9) Hyperlipidemia Code(s): E78.5 - HYPERLIPIDEMIA, UNSPECIFIED (10) Inflammatory arthritis Code(s): M19.90 - UNSPECIFIED OSTEOARTHRITIS, UNSPECIFIED SITE (11) Morbid obesity Code(s): E66.01 - MORBID (SEVERE) OBESITY DUE TO EXCESS CALORIES (12) Osteoarthritis Code(s): M19.90 - UNSPECIFIED OSTEOARTHRITIS, UNSPECIFIED SITE Qualifiers: Osteoarthritis location: hand Osteoarthritis type: primary Laterality: right Qualified Code(s): M19.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
--- NOTE | 2018-05-03 21:28 | PN ---
Progress Note (short form) - Note Progress Note: Problems HF leg edema with PMH of diastolic CHF, CAD s/p PCI x 2, HTN, HLD, CKD, BPH, COPD, Asthma Current Medications Acetaminophen (Tylenol -) 650 mg PO Q4H PRN PRN Reason: PAIN 1-3 Last Admin: 05/03/18 09:55 Dose: 650 mg Aspirin (Ecotrin -) 162 mg PO DAILY [facility] Last Admin: 05/03/18 09:55 Dose: 162 mg Atorvastatin Calcium (Lipitor -) 40 mg PO HS [facility] Last Admin: 05/02/18 21:34 Dose: 40 mg Chlorthalidone (Hygroton -) 25 mg PO DAILY@0500 [facility] Last Admin: 05/03/18 06:00 Dose: 25 mg Finasteride (Proscar -) 5 mg PO DAILY [facility] Last Admin: 05/03/18 09:55 Dose: 5 mg Furosemide (Lasix Injection -) 60 mg IVPB BID@0600,1400 [facility] Last Admin: 05/03/18 15:08 Dose: 60 mg Insulin Aspart (Novolog Vial Sliding Scale -) 1 vial SQ ACHS [facility]; Protocol Last Admin: 05/03/18 17:46 Dose: Not Given Tamsulosin HCl (Flomax -) 0.4 mg PO 0830 [facility] Last Admin: 05/03/18 09:54 Dose: 0.4 mg Last Vital Signs Temp Pulse Resp BP Pulse Ox 98.4 F 56 L 20 137/71 97 05/03/18 17:00 05/03/18 17:00 05/03/18 17:00 05/03/18 17:00 05/03/18 09:00 he weighs 250 from 253 lbs yesteray usual weight is 230 lbs per pt Lungs bi basilar rales Heart reg Ext edema CBC, BMP 05/03/18 06:40 05/03/18 06:40 IMP ckd chf with leg edema and rales underlying copd Rec/Plan continue daily weights continue on increased dose of lasix bid with thiazide for more diuresis monitor chems for hypokalemia supplement KCL
[2018-05-03] MEDS: ATORVASTATIN CA 40 MG TABLET (FP) PO SCH (21:57)
[2018-05-04] MEDS: CHLORTHALIDONE 25 MG TABLET PO SCH (05:53)
[2018-05-04] MEDS: FUROSEMIDE 40 MG/4 ML INJECTABLE VIAL IVPB SCH ×2 (05:53→13:51)
[2018-05-04] MEDS: INSULIN SLIDING SCALE (NOVOLOG) 1 VIAL SQ SCH ×4 (06:01→21:35)
[2018-05-04 07:26] LABS: ANION GAP 6 MMOL/L (8-16); BLOOD UREA NITROGEN 43 mg/dL (7-18); CHLORIDE 103 mmol/L (98-107); CO2 29 mmol/L (21-32); GLUCOSE,RANDOM 131 mg/dL (74-106); MAGNESIUM 2.3 mg/dL (1.8-2.4); SODIUM 139 mmol/L (136-145)
[2018-05-04] MEDS: ASPIRIN COATED 81 MG TABLET.EC PO SCH (09:10)
[2018-05-04] MEDS: FINASTERIDE 5 MG TABLET (FP) PO SCH (09:11)
[2018-05-04] MEDS: TAMSULOSIN HCL 0.4 MG CAP PO SCH (09:11)
[2018-05-04] MEDS: POTASSIUM CHLORIDE TABS 20 MEQ TABLET.ER (FP) PO SCH (09:11)
--- NOTE | 2018-05-04 09:30 | CON.CARD ---
Consult Consult Specialty:: cardio - History of Present Illness Chief Complaint: sob History of Present Illness: 77 M admitted with sob and "stabbing" cp. 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 Cardio/Vascular: Yes: CHF, HTN, Hyperlipdemia, [place], Other (CABG) Pulmonary: Yes: COPD, Other (former smoker) Renal/: Yes: Renal Inusuff Musculoskeletal: Yes: Chronic low back pain, Osteoarthritis Endocrine: Yes: Diabetes Mellitus - Past Surgical History Past Surgical History: Yes: Bypass, CABG, Joint Replacement (bilateral knees) - Alcohol/Substance Use Hx Alcohol Use: No History of Substance Use: reports: None - Smoking History Smoking history: Never smoked Have you smoked in the past 12 months: No Aproximately how many cigarettes per day: 0 If you are a former smoker, when did you quit?: 30 years ago - Social History Usual Living Arrangement: With Child ADL: Family Assistance History of Recent Travel: No Home Medications - Allergies Allergies/Adverse Reactions: Allergies Allergy/AdvReac Type Severity Reaction Status Date / Time No Known Allergies Allergy Verified 04/30/18 13:10 - Home Medications Home Medications: Ambulatory Orders Insulin Aspart [Novolog] 15 unit SQ ASDIR 07/16/17 Insulin Degludec [Tresiba Flextouch U-100] 70 unit SQ DAILY 07/16/17 Aspirin [Ecotrin] 162 mg PO DAILY #60 tablet.dr 01/06/18 Atorvastatin Ca [Lipitor] 40 mg PO HS #30 tablet 01/06/18 Tamsulosin HCl [Flomax] 0.4 mg PO DAILY #30 capsule 01/06/18 Acetaminophen [Tylenol .Regular Strength -] 650 mg PO Q4H PRN tablet 03/23/18 Finasteride [Proscar -] 5 mg PO DAILY tablet 03/23/18 Furosemide [Lasix -] 80 mg PO DAILY tablet 03/23/18 Insulin Sliding Scale [Novolog Vial Sliding Scale -] 1 vial SQ ACHS units 03/23 Family Disease History - Family Disease History Family Disease History: Diabetes: Father, Mother Vital Signs: Vital Signs Temperature 97.3 F L 05/04/18 06:00 Pulse Rate 53 L 05/04/18 06:00 Respiratory Rate 20 05/04/18 06:00 Blood Pressure 146/84 05/04/18 06:00 O2 Sat by Pulse Oximetry (%) 99 05/03/18 21:00 - Other Data Labs, Other Data: CBC, BMP 05/03/18 06:40 05/04/18 05:30 Assessment/Plan echo 06/2017: mild dec lvef, nl rv, mild mr, mild-mod tr, rvsp 40-50, mild ar, mild pr ecg 04/30: NSR with ventricular bigeminy. RBBB, NSST-Ts--similar to 03/15, 01/13 priors CXR 04/30: mild central congestive changes, new L base infiltrate vs atx vs some fluid. CXR 05/01, 05/03: no signif chane or improvement a/p: 77 m hx cad, mi x2, cabg 2012, pci x2 2016, mobitz I, dchf, copd, dm, htn , hld, ckd here with sob, le edema. acute diastolic chf, atypical CP -here 03/15 with volume overload, treated with lasix 60 iv bid (home dose 80 qd at that time? vs 40 bid perhaps?) -wts then inaccurate, ranged btw 230-244 lbs in the several days prior to hosp discharge. sent home on lasix 40 bid. -BNP not helpful with low GFR (6K here, from 5K last time) -MAR reviewed: lasix 40 IV once on 04/30, then 40 iv bid, changed to 60 iv bid on 05/03 -CXR shows no improvement in congestive changes +/- ? L effusions vs infiltrate on serial studies -05/04: wt improving, 247 from 255 (standing scale) -lasix -troponin neg x 2. ECG no ischemic changes -plan pharm MPI to r/o ischemic substrate contributing to HF tendencies CKD: -creat randy from 1.8 to 2.4 on discharge 03/15 s/p chf with iv diuresis -currently renal fxn is stable (creat 2.0) -renal team following pulm HTN: -likely WHO 2 sec to diast chf -no further w/u indicated at present--reconsider if PH persists on f/u echo as outpt once pt well-diuresed, or RV dilation seen in future cad: -stable, no signs acs -cont asa, statin abnl ecg, mobitz 1: -chronic finding htn: -well controlled -same meds hld: -cont statin ckd: -baseline creat 1.8-2.2 -bun and cr rising with iv lasix, will change to po lasix now, 80 bid. -renal following
--- NOTE | 2018-05-04 12:46 | PN ---
Progress Note (short form) - Note Progress Note: patient sitting up in bed reports less shortness of breath improvement from time of admission also noted decreased edema to LE patient report less urine output in spite of increased lasix dose Vital Signs Period Temp Pulse Resp BP Sys/Whitehead Pulse Ox Last 24 Hr 97 F-98.4 F 52-98 20-20 130-146/48-96 99 neck supple heart s1/S2 Lung decreased at bases / rales bilat bases abd soft obese ext + edema bilat CBC, BMP 05/03/18 06:40 05/03/18 06:40 CBC, BMP 05/02/18 06:53 05/02/18 06:53 Active Medications Acetaminophen (Tylenol -) 650 mg PO Q4H PRN PRN Reason: PAIN 1-3 Last Admin: 05/03/18 21:58 Dose: 650 mg Aspirin (Ecotrin -) 162 mg PO DAILY [facility] Last Admin: 05/04/18 09:10 Dose: 162 mg Atorvastatin Calcium (Lipitor -) 40 mg PO HS [facility] Last Admin: 05/03/18 21:57 Dose: 40 mg Chlorthalidone (Hygroton -) 25 mg PO DAILY@0500 [facility] Last Admin: 05/04/18 05:53 Dose: 25 mg Finasteride (Proscar -) 5 mg PO DAILY [facility] Last Admin: 05/04/18 09:11 Dose: 5 mg Furosemide (Lasix Injection -) 60 mg IVPB BID@0600,1400 [facility] Last Admin: 05/04/18 05:53 Dose: 60 mg Insulin Aspart (Novolog Vial Sliding Scale -) 1 vial SQ ACHS [facility]; Protocol Last Admin: 05/04/18 12:00 Dose: Not Given Potassium Chloride (K-Dur -) 20 meq PO DAILY [facility] Last Admin: 05/04/18 09:11 Dose: 20 meq Tamsulosin HCl (Flomax -) 0.4 mg PO 0830 [facility] Last Admin: 05/04/18 09:11 Dose: 0.4 mg # HF admits compliant with meds - discussed dietary indiscretions as possible culprit will need to adjust home meds - as recurrent HF continue with BID dosing daily weights trend renal function # CKD trend renal function ( baseline 1.8-2.0) known to nephro # BPH continue home meds # DM statins / asa sliding scale bs ACEi once renal function stable # CAD stable -- CP 2/2 to HF CE neg Problem List - Problems (1) CHF exacerbation Code(s): I50.9 - HEART FAILURE, UNSPECIFIED (2) Acute on chronic diastolic (congestive) heart failure Code(s): I50.33 - ACUTE ON CHRONIC DIASTOLIC (CONGESTIVE) HEART FAILURE (3) BPH associated with nocturia Code(s): N40.1 - BENIGN PROSTATIC HYPERPLASIA WITH LOWER URINARY TRACT SYMP; R35.1 - NOCTURIA (4) CKD (chronic kidney disease) Code(s): N18.9 - CHRONIC KIDNEY DISEASE, UNSPECIFIED (5) Diabetes Code(s): E11.9 - TYPE 2 DIABETES MELLITUS WITHOUT COMPLICATIONS Qualifiers: Diabetes mellitus long-term insulin use: 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 Diabetes mellitus complication detail: with unspecified neuropathy (6) Leg edema Code(s): R60.0 - LOCALIZED EDEMA (7) HTN (hypertension) Code(s): I10 - ESSENTIAL (PRIMARY) HYPERTENSION (8) Hx of CABG Code(s): Z95.1 - PRESENCE OF AORTOCORONARY BYPASS GRAFT (9) Hyperlipidemia Code(s): E78.5 - HYPERLIPIDEMIA, UNSPECIFIED (10) Inflammatory arthritis Code(s): M19.90 - UNSPECIFIED OSTEOARTHRITIS, UNSPECIFIED SITE (11) Morbid obesity Code(s): E66.01 - MORBID (SEVERE) OBESITY DUE TO EXCESS CALORIES (12) Osteoarthritis Code(s): M19.90 - UNSPECIFIED OSTEOARTHRITIS, UNSPECIFIED SITE Qualifiers: Osteoarthritis location: hand Osteoarthritis type: primary Laterality: right Qualified Code(s): M19.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
--- NOTE | 2018-05-04 12:58 | PN ---
Progress Note, Physician History of Present Illness: Pt seen and examined at bedside. He is awake and alert. He complains of lower ext edema. - Current Medication List Current Medications: Active Medications Acetaminophen (Tylenol -) 650 mg PO Q4H PRN PRN Reason: PAIN 1-3 Last Admin: 05/03/18 21:58 Dose: 650 mg Aspirin (Ecotrin -) 162 mg PO DAILY [facility] Last Admin: 05/04/18 09:10 Dose: 162 mg Atorvastatin Calcium (Lipitor -) 40 mg PO HS [facility] Last Admin: 05/03/18 21:57 Dose: 40 mg Chlorthalidone (Hygroton -) 25 mg PO DAILY@0500 [facility] Last Admin: 05/04/18 05:53 Dose: 25 mg Finasteride (Proscar -) 5 mg PO DAILY [facility] Last Admin: 05/04/18 09:11 Dose: 5 mg Furosemide (Lasix Injection -) 60 mg IVPB BID@0600,1400 [facility] Last Admin: 05/04/18 05:53 Dose: 60 mg Insulin Aspart (Novolog Vial Sliding Scale -) 1 vial SQ ACHS [facility]; Protocol Last Admin: 05/04/18 12:00 Dose: Not Given Potassium Chloride (K-Dur -) 20 meq PO DAILY [facility] Last Admin: 05/04/18 09:11 Dose: 20 meq Tamsulosin HCl (Flomax -) 0.4 mg PO 0830 [facility] Last Admin: 05/04/18 09:11 Dose: 0.4 mg - Objective Vital Signs: Vital Signs Temperature 97.3 F L 05/04/18 06:00 Pulse Rate 53 L 05/04/18 06:00 Respiratory Rate 20 05/04/18 06:00 Blood Pressure 146/84 05/04/18 06:00 O2 Sat by Pulse Oximetry (%) 99 05/03/18 21:00 Constitutional: Yes: Calm Eyes: Yes: Conjunctiva Clear HENT: Yes: Atraumatic Cardiovascular: Yes: S1, S2 Respiratory: Yes: On Nasal O2 Gastrointestinal: Yes: Soft Genitourinary: Yes: WNL Musculoskeletal: Yes: WNL Edema: Yes Edema: LLE: 2+, RLE: 2+ Neurological: Yes: Oriented Psychiatric: Yes: Oriented Labs: CBC, BMP 05/03/18 06:40 05/04/18 05:30 Assessment/Plan Current Medications Generic Name Dose Route Start Last Admin Trade Name Freq PRN Reason Stop Dose Admin Acetaminophen 650 mg 04/30/18 16:27 05/03/18 21:58 Tylenol - PO 650 mg Q4H PRN Administration PAIN 1-3 Aspirin 162 mg 05/01/18 10:00 05/04/18 09:10 Ecotrin - PO 162 mg DAILY [facility] Administration Atorvastatin Calcium 40 mg 04/30/18 22:00 05/03/18 21:57 Lipitor - PO 40 mg HS [facility] Administration Chlorthalidone 25 mg 05/03/18 05:00 05/04/18 05:53 Hygroton - PO 25 mg DAILY@0500 [facility] Administration Finasteride 5 mg 05/01/18 10:00 05/04/18 09:11 Proscar - PO 5 mg DAILY [facility] Administration Furosemide 60 mg 05/03/18 06:00 05/04/18 05:53 Lasix Injection - IVPB 60 mg BID@0600,1400 [facility] Administration Insulin Aspart 1 vial 04/30/18 22:00 05/04/18 12:00 Novolog Vial Sliding Scale - SQ Not Given ACHS [facility] Protocol Potassium Chloride 20 meq 05/04/18 10:00 05/04/18 09:11 K-Dur - PO 20 meq DAILY [facility] Administration Tamsulosin HCl 0.4 mg 05/01/18 08:30 05/04/18 09:11 Flomax - PO 0.4 mg 0830 [facility] Administration Impression 1. CKD 2. CHF 3. DM 4. obesity 5. HTN 6. dyspnea 7. HLD 8. CAD s/p cabg Plan - cont lasix - will give a dose of aldactone - check ua - repeat labs in am - hold potassium supplements tomorrow until labs are reviewed as he is getting aldactone - monitor renal function - will need ckd workup - will follow
[2018-05-04] MEDS ORDERED: SPIRONOLACTONE 25 MG TABLET (FP) PO ONE (13:00)
--- NOTE | 2018-05-04 13:32 | CON.CARD ---
Consult Consult Specialty:: Cardiology Referred by:: Christiano Reason for Consultation:: CHF - History of Present Illness Chief Complaint: shortness of breath History of Present Illness: 77M h/o chronic diastolic HF, CKD, HTN p/w sob, stabbing chest pain. Trop neg x 2, chest pain resolved. Shortness of breath improving with IV lasix. Also has edema which he thinks is improving as well. - History Source History Provided By: Patient - Past Medical History [employer]: Yes: Peripheral Neuropathy Cardio/Vascular: Yes: CHF, HTN, Hyperlipdemia, MT, Other (CABG) Pulmonary: Yes: COPD, Other (former smoker) Renal/: Yes: Renal Inusuff Musculoskeletal: Yes: Chronic low back pain, Osteoarthritis Endocrine: Yes: Diabetes Mellitus - Past Surgical History Past Surgical History: Yes: Bypass, CABG, Joint Replacement (bilateral knees) - Alcohol/Substance Use Hx Alcohol Use: No History of Substance Use: reports: None - Smoking History Smoking history: Never smoked Have you smoked in the past 12 months: No Aproximately how many cigarettes per day: 0 If you are a former smoker, when did you quit?: 30 years ago - Social History Usual Living Arrangement: With Child ADL: Family Assistance History of Recent Travel: No Home Medications - Allergies Allergies/Adverse Reactions: Allergies Allergy/AdvReac Type Severity Reaction Status Date / Time No Known Allergies Allergy Verified 04/30/18 13:10 - Home Medications Home Medications: Ambulatory Orders Insulin Aspart [Novolog] 15 unit SQ ASDIR 07/16/17 Insulin Degludec [Tresiba Flextouch U-100] 70 unit SQ DAILY 07/16/17 Aspirin [Ecotrin] 162 mg PO DAILY #60 tablet. 01/06/18 Atorvastatin Ca [Lipitor] 40 mg PO HS #30 tablet 01/06/18 Tamsulosin HCl [Flomax] 0.4 mg PO DAILY #30 capsule 01/06/18 Acetaminophen [Tylenol .Regular Strength -] 650 mg PO Q4H PRN tablet 03/23/18 Finasteride [Proscar -] 5 mg PO DAILY tablet 03/23/18 Furosemide [Lasix -] 80 mg PO DAILY tablet 03/23/18 Insulin Sliding Scale [Novolog Vial Sliding Scale -] 1 vial SQ ACHS units 03/23 Family Disease History - Family Disease History Family Disease History: Diabetes: Father, Mother Review of Systems - Review of Systems Constitutional: reports: No Symptoms Eyes: reports: No Symptoms HENT: reports: No Symptoms Neck: reports: No Symptoms Cardiovascular: reports: No Symptoms Respiratory: reports: No Symptoms Gastrointestinal: reports: No Symptoms Genitourinary: reports: No Symptoms Musculoskeletal: reports: No Symptoms Integumentary: reports: No Symptoms Neurological: reports: No Symptoms Endocrine: reports: No Symptoms Hematology/Lymphatic: reports: No Symptoms Psychiatric: reports: No Symptoms Vital Signs: Vital Signs Temperature 97.3 F L 05/04/18 06:00 Pulse Rate 53 L 05/04/18 06:00 Respiratory Rate 20 05/04/18 06:00 Blood Pressure 146/84 05/04/18 06:00 O2 Sat by Pulse Oximetry (%) 99 05/03/18 21:00 Constitutional: Yes: Well Nourished, No Distress, Calm Eyes: Yes: Conjunctiva Clear, EOM Intact HENT: Yes: Atraumatic, Normocephalic Neck: Yes: Supple, Trachea Midline Respiratory: Yes: Regular, Rales ([place] bases) Gastrointestinal: Yes: Normal Bowel Sounds, Soft Cardiovascular: Yes: Pulse Irregular JVD: Yes Carotid Bruit: No PMI: Non-Displaced Heart Sounds: Yes: S1, S2 Extremities: No: Cold Edema: Yes Edema: LLE: 2+, RLE: 2+ Peripheral Pulses WNL: Yes Peripheral Pulses: 2+ Left Carotid, 2+ Right Carotid, 2+ Left Doralis Pedis, 2+ Right Dorsalis Pedis Integumentary: No: Jaundice Neurological: Yes: Alert, Oriented Psychiatric: Yes: Alert, Oriented - Other Data Labs, Other Data: CBC, BMP 05/03/18 06:40 05/04/18 05:30 Assessment/Plan echo 06/2017: mild dec lvef, nl rv, mild mr, mild-mod tr, rvsp 40-50, mild ar, mild pr ecg 04/30: sinus, mobitz 1, with ventricular bigeminy. RBBB, NSST-Ts--similar to 03/15, 01/13 priors CXR 04/30: mild central congestive changes, new L base infiltrate vs atx vs some fluid. CXR 05/01, 05/03: no signif chane or improvement tele: sinus, Mobitz 1, PVCs a/p: 77 m hx cad, mi x2, cabg 2012, pci x2 2017, mobitz I, dchf, copd, dm, htn , hld, ckd here with sob, le edema. acute diastolic chf, atypical CP -here 03/15 with volume overload, treated with lasix 60 iv bid (home dose 80 mg daily vs 40 mg BID at that time) -wts then inaccurate, ranged btw 230-244 lbs in the several days prior to hosp discharge. sent home on lasix 40 bid. -BNP stable, not helpful with low GFR (6K here, from 5K last time) -MAR reviewed: lasix 40 IV once on 04/30, then 40 iv bid, changed to 60 iv bid on 05/03 -CXR shows no improvement in congestive changes +/- ? L effusions vs infiltrate on serial studies -05/04: wt improving, 247 from 255 (standing scale), sob and edema also improving - continue lasix 60 mg IV BID, also received spironolactone today per renal - monitor Cr, daily weights -troponin neg x 2. ECG no ischemic changes -plan pharm MPI to r/o ischemic substrate contributing to HF tendencies when patient euvolemic CKD: -creat randy from 1.8 to 2.4 on discharge 03/15 s/p chf with iv diuresis -currently renal fxn is stable (creat 2.0) -renal team following pulm HTN: -likely WHO 2 sec to diast chf -no further w/u indicated at present--reconsider if PH persists on f/u echo as outpt once pt well-diuresed, or RV dilation seen in future cad: -stable, no signs acs -cont asa, statin abnl ecg, mobitz 1: -chronic finding, stable htn: -well controlled -same meds hld: -cont statin ckd: -baseline creat 1.8-2.2 - continue lasix 60 mg IV BID, monitor Cr -renal following
--- NOTE | 2018-05-04 14:48 | EKG ---
Test Reason : Blood Pressure : / mmHG Vent. 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
[2018-05-04] MEDS: ATORVASTATIN CA 40 MG TABLET (FP) PO SCH (21:35)
[2018-05-05] MEDS: CHLORTHALIDONE 25 MG TABLET PO SCH (05:41)
[2018-05-05] MEDS: INSULIN SLIDING SCALE (NOVOLOG) 1 VIAL SQ SCH ×4 (06:13→22:16)
[2018-05-05] MEDS: FUROSEMIDE 40 MG/4 ML INJECTABLE VIAL IVPB SCH ×2 (06:44→15:09)
[2018-05-05 06:59] LABS: BASO % 0.5 % (0-2.0); EOS % 1.9 % (0-4.5); HEMATOCRIT 32.5 % (35.4-49); HEMOGLOBIN 9.9 GM/dL (11.7-16.9); LYMPH % 11.7 % (8-40); MCH 24.3 pg (25.7-33.7); MCHC 30.6 g/dl (32.0-35.9); MEAN CELL VOLUME 79.2 fl (80-96); MEAN PLT VOLUME 8.7 fl (7.5-11.1); MONO % 7.5 % (3.8-10.2); NEUT % 78.4 % (42.8-82.8); PLATELET COUNT 173 K/MM3 (134-434); RDW 17.2 % (11.9-15.9)
[2018-05-05 07:23] LABS: ANION GAP 5 MMOL/L (8-16); BLOOD UREA NITROGEN 45 mg/dL (7-18); CALCIUM 8.6 mg/dL (8.5-10.1); CHLORIDE 102 mmol/L (98-107); CO2 31 mmol/L (21-32); GLUCOSE,RANDOM 152 mg/dL (74-106); SODIUM 138 mmol/L (136-145)
[2018-05-05] MEDS: ACETAMINOPHEN 325 MG TABLET (FP) PO PRN ×2 (08:28→22:32)
[2018-05-05] MEDS: TAMSULOSIN HCL 0.4 MG CAP PO SCH (08:29)
[2018-05-05] MEDS: FINASTERIDE 5 MG TABLET (FP) PO SCH (09:42)
[2018-05-05] MEDS: ASPIRIN COATED 81 MG TABLET.EC PO SCH (09:42)
--- NOTE | 2018-05-05 11:20 | PN ---
Progress Note (short form) - Note Progress Note: Chief Complaint: shortness of breath History of Present Illness: feels better today, sob improving. no chest pain, palps, dizziness. Current Medications Acetaminophen (Tylenol -) 650 mg PO Q4H PRN PRN Reason: PAIN 1-3 Last Admin: 05/05/18 08:28 Dose: 650 mg Aspirin (Ecotrin -) 162 mg PO DAILY [facility] Last Admin: 05/05/18 09:42 Dose: 162 mg Atorvastatin Calcium (Lipitor -) 40 mg PO HS [facility] Last Admin: 05/04/18 21:35 Dose: 40 mg Chlorthalidone (Hygroton -) 25 mg PO DAILY@0500 [facility] Last Admin: 05/05/18 05:41 Dose: 25 mg Finasteride (Proscar -) 5 mg PO DAILY [facility] Last Admin: 05/05/18 09:42 Dose: 5 mg Furosemide (Lasix Injection -) 60 mg IVPB BID@0600,1400 [facility] Last Admin: 05/05/18 06:44 Dose: 60 mg Insulin Aspart (Novolog Vial Sliding Scale -) 1 vial SQ ACHS [facility]; Protocol Last Admin: 05/05/18 06:13 Dose: Not Given Potassium Chloride (K-Dur -) 20 meq PO DAILY [facility] Last Admin: 05/04/18 09:11 Dose: 20 meq Tamsulosin HCl (Flomax -) 0.4 mg PO 0830 [facility] Last Admin: 05/05/18 08:29 Dose: 0.4 mg Vital Signs: Vital Signs Period Temp Pulse Resp BP Sys/Whitehead Pulse Ox Last 24 Hr 97.5 F-98.5 F 67-86 16-20 128-155/63-92 94-98 Constitutional: Yes: Well Nourished, No Distress, Calm Eyes: Yes: Conjunctiva Clear, EOM Intact HENT: Yes: Atraumatic, Normocephalic Neck: Yes: Supple, Trachea Midline Respiratory: Yes: Regular, Rales ([place] bases) Gastrointestinal: Yes: Normal Bowel Sounds, Soft Cardiovascular: Yes: Pulse Irregular JVD: Yes Carotid Bruit: No PMI: Non-Displaced Heart Sounds: Yes: S1, S2 Extremities: No: Cold Edema: Yes Edema: LLE: 2+, RLE: 2+ Peripheral Pulses WNL: Yes Peripheral Pulses: 2+ Left Carotid, 2+ Right Carotid, 2+ Left Doralis Pedis, 2+ Right Dorsalis Pedis Integumentary: No: Jaundice Neurological: Yes: Alert, Oriented Psychiatric: Yes: Alert, Oriented Assessment/Plan echo 06/2017: mild dec lvef, nl rv, mild mr, mild-mod tr, rvsp 40-50, mild ar, mild pr ecg 04/30: sinus, mobitz 1, with ventricular bigeminy. RBBB, NSST-Ts--similar to 03/15, 01/13 priors CXR 04/30: mild central congestive changes, new L base infiltrate vs atx vs some fluid. CXR 05/01, 05/03: no signif chane or improvement tele: sinus, Mobitz 1, PVCs a/p: 77 m hx cad, mi x2, cabg 2012, pci x2 2017, mobitz I, dchf, copd, dm, htn , hld, ckd here with sob, le edema. acute diastolic chf, atypical CP -here 03/15 with volume overload, treated with lasix 60 iv bid (home dose 80 mg daily vs 40 mg BID at that time) -wts then inaccurate, ranged btw 230-244 lbs in the several days prior to hosp discharge. sent home on lasix 40 bid. -BNP stable, not helpful with low GFR (6K here, from 5K last time) -MAR reviewed: lasix 40 IV once on 04/30, then 40 iv bid, changed to 60 iv bid on 05/03 -CXR shows no improvement in congestive changes +/- ? L effusions vs infiltrate on serial studies -05/04: wt improving, 247 from 255 (standing scale), sob and edema also improving - continue lasix 60 mg IV BID, also received spironolactone today per renal -05/05: weight 247->222 lbs, d/w RN checked multiple times - symptoms improving, however still has JVD, edema. will continue lasix 60 mg IV BID at same dose - monitor Cr, daily weights -troponin neg x 2. ECG no ischemic changes -plan pharm MPI to r/o ischemic substrate contributing to HF tendencies when patient euvolemic CKD: -creat randy from 1.8 to 2.4 on discharge 03/15 s/p chf with iv diuresis -currently renal fxn is stable (creat 2.0) -renal team following pulm HTN: -likely WHO 2 sec to diast chf -no further w/u indicated at present--reconsider if PH persists on f/u echo as outpt once pt well-diuresed, or RV dilation seen in future cad: -stable, no signs acs -cont asa, statin abnl ecg, mobitz 1: -chronic finding, stable htn: -well controlled -same meds hld: -cont statin ckd: -baseline creat 1.8-2.2 - continue lasix 60 mg IV BID, monitor Cr -renal following
--- NOTE | 2018-05-05 14:49 | PN ---
Progress Note, Physician History of Present Illness: Pt seen and examined at bedside. He is awake and alert. He denies shortness of breath. He complains of lower ext edema. - Current Medication List Current Medications: Active Medications Acetaminophen (Tylenol -) 650 mg PO Q4H PRN PRN Reason: PAIN 1-3 Last Admin: 05/05/18 08:28 Dose: 650 mg Aspirin (Ecotrin -) 162 mg PO DAILY [facility] Last Admin: 05/05/18 09:42 Dose: 162 mg Atorvastatin Calcium (Lipitor -) 40 mg PO HS [facility] Last Admin: 05/04/18 21:35 Dose: 40 mg Chlorthalidone (Hygroton -) 25 mg PO DAILY@0500 [facility] Last Admin: 05/05/18 05:41 Dose: 25 mg Finasteride (Proscar -) 5 mg PO DAILY [facility] Last Admin: 05/05/18 09:42 Dose: 5 mg Furosemide (Lasix Injection -) 60 mg IVPB BID@0600,1400 [facility] Last Admin: 05/05/18 06:44 Dose: 60 mg Insulin Aspart (Novolog Vial Sliding Scale -) 1 vial SQ ACHS [facility]; Protocol Last Admin: 05/05/18 11:38 Dose: 4 units Potassium Chloride (K-Dur -) 20 meq PO DAILY [facility] Last Admin: 05/04/18 09:11 Dose: 20 meq Tamsulosin HCl (Flomax -) 0.4 mg PO 0830 [facility] Last Admin: 05/05/18 08:29 Dose: 0.4 mg - Objective Vital Signs: Vital Signs Temperature 97.6 F 05/05/18 08:32 Pulse Rate 69 05/05/18 08:32 Respiratory Rate 16 05/05/18 08:33 Blood Pressure 140/72 05/05/18 08:32 O2 Sat by Pulse Oximetry (%) 94 L 05/05/18 08:33 Constitutional: Yes: Calm Eyes: Yes: Conjunctiva Clear HENT: Yes: Atraumatic Cardiovascular: Yes: S1, S2 Respiratory: Yes: CTA Bilaterally Gastrointestinal: Yes: Soft, Abdomen, Obese Genitourinary: Yes: WNL Edema: Yes Edema: LLE: 2+, RLE: 2+ Neurological: Yes: Oriented Psychiatric: Yes: Oriented Labs: CBC, BMP 05/05/18 05:30 05/05/18 05:30 Assessment/Plan Current Medications Generic Name Dose Route Start Last Admin Trade Name [place] PRN Reason Stop Dose Admin Acetaminophen 650 mg 04/30/18 16:27 05/05/18 08:28 Tylenol - PO 650 mg Q4H PRN Administration PAIN 1-3 Aspirin 162 mg 05/01/18 10:00 05/05/18 09:42 Ecotrin - PO 162 mg DAILY JENNIFER Administration Atorvastatin Calcium 40 mg 04/30/18 22:00 05/04/18 21:35 Lipitor - PO 40 mg HS JENNIFER Administration Chlorthalidone 25 mg 05/03/18 05:00 05/05/18 05:41 Hygroton - PO 25 mg DAILY@0500 JENNIFER Administration Finasteride 5 mg 05/01/18 10:00 05/05/18 09:42 Proscar - PO 5 mg DAILY JENNIFER Administration Furosemide 60 mg 05/03/18 06:00 05/05/18 06:44 Lasix Injection - IVPB 60 mg BID@0600,1400 JENNIFER Administration Insulin Aspart 1 vial 04/30/18 22:00 05/05/18 11:38 Novolog Vial Sliding Scale - SQ 4 units ACHS JENNIFER Administration Protocol Potassium Chloride 20 meq 05/04/18 10:00 05/04/18 09:11 K-Dur - PO 20 meq DAILY JENNIFER Administration Tamsulosin HCl 0.4 mg 05/01/18 08:30 05/05/18 08:29 Flomax - PO 0.4 mg 0830 JENN[facility]ER Administration Impression 1. CKD 2. CHF 3. DM 4. obesity 5. HTN 6. dyspnea 7. HLD 8. CAD s/p cabg Plan - cont diuretics - repeat labs in am - will re-order ua - monitor potassium levels - monitor renal function - pt never came to office for ckd workup - will follow
[2018-05-05 19:10] VITALS: BMI 35.8
[2018-05-05 20:30] LABS: URINE APPEARANCE CLEAR; URINE BILIRUBIN NEGATIVE (<2.0 mg/dL); URINE COLOR STRAW; URINE GLUCOSE (UA) NEGATIVE (NEGATIVE); URINE KETONE NEGATIVE (NEGATIVE); URINE LEUK ESTERASE NEGATIVE (NEGATIVE); URINE NITRITE NEGATIVE (NEGATIVE); URINE PROTEIN 1+ (NEGATIVE); URINE UROBILINOGEN NEGATIVE mg/dL (0.2-1.0)
[2018-05-05 20:41] LABS: EPI CELLS RARE /HPF (FEW); URINE MUCUS RARE
[2018-05-05] MEDS: ATORVASTATIN CA 40 MG TABLET (FP) PO SCH (21:26)
--- NOTE | 2018-05-05 22:14 | PN ---
Progress Note (short form) - Note Progress Note: patient sitting up in bed noted decreased edema to LE but c/o silveira to his legs Vital Signs Period Temp Pulse Resp BP Sys/Whitehead Pulse Ox Last 24 Hr 97.6 F-98.8 F 59-663 16-20 128-140/63-84 94-96 neck supple heart s1/S2 Lung decreased at bases / grossly clear abd soft obese ext + edema bilat CBC, [facility] 05/05/18 05:30 05/05/18 05:30 CBC, [facility] 05/03/18 06:40 05/03/18 06:40 CBC, [facility] 05/02/18 06:53 05/02/18 06:53 Active Medications Acetaminophen (Tylenol -) 650 mg PO Q4H PRN PRN Reason: PAIN 1-3 Last Admin: 05/05/18 08:28 Dose: 650 mg Aspirin (Ecotrin -) 162 mg PO DAILY [facility] Last Admin: 05/05/18 09:42 Dose: 162 mg Atorvastatin Calcium (Lipitor -) 40 mg PO HS [facility] Last Admin: 05/05/18 21:26 Dose: 40 mg Chlorthalidone (Hygroton -) 25 mg PO DAILY@0500 [facility] Last Admin: 05/05/18 05:41 Dose: 25 mg Finasteride (Proscar -) 5 mg PO DAILY [facility] Last Admin: 05/05/18 09:42 Dose: 5 mg Furosemide (Lasix Injection -) 60 mg IVPB BID@0600,1400 [facility] Last Admin: 05/05/18 15:09 Dose: 60 mg Insulin Aspart (Novolog Vial Sliding Scale -) 1 vial SQ ACHS [facility]; Protocol Last Admin: 05/05/18 17:46 Dose: Not Given Potassium Chloride (K-Dur -) 20 meq PO DAILY [facility] Last Admin: 05/04/18 09:11 Dose: 20 meq Tamsulosin HCl (Flomax -) 0.4 mg PO 0830 [facility] Last Admin: 05/05/18 08:29 Dose: 0.4 mg # HF appreciate cardio / renal follow up continue with lasix BID dosing daily weights trend renal function has remained stable # CKD trend renal function ( baseline 1.8-2.0) known to nephro # BPH continue home meds # DM statins / asa sliding scale bs ACEi once renal function stable # CAD stable -- CP 2/2 to HF CE neg Problem List - Problems (1) CHF exacerbation Code(s): I50.9 - HEART FAILURE, UNSPECIFIED (2) Acute on chronic diastolic (congestive) heart failure Code(s): I50.33 - ACUTE ON CHRONIC DIASTOLIC (CONGESTIVE) HEART FAILURE (3) BPH associated with nocturia Code(s): N40.1 - BENIGN PROSTATIC HYPERPLASIA WITH LOWER URINARY TRACT SYMP; R35.1 - NOCTURIA (4) CKD (chronic kidney disease) Code(s): N18.9 - CHRONIC KIDNEY DISEASE, UNSPECIFIED (5) Diabetes Code(s): E11.9 - TYPE 2 DIABETES MELLITUS WITHOUT COMPLICATIONS 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 Diabetes mellitus complication detail: with unspecified neuropathy (6) Leg edema Code(s): R60.0 - LOCALIZED EDEMA (7) HTN (hypertension) Code(s): I10 - ESSENTIAL (PRIMARY) HYPERTENSION (8) Hx of CABG Code(s): Z95.1 - PRESENCE OF AORTOCORONARY BYPASS GRAFT (9) Hyperlipidemia Code(s): E78.5 - HYPERLIPIDEMIA, UNSPECIFIED (10) Inflammatory arthritis Code(s): M19.90 - UNSPECIFIED OSTEOARTHRITIS, UNSPECIFIED SITE (11) Morbid obesity Code(s): E66.01 - MORBID (SEVERE) OBESITY DUE TO EXCESS CALORIES (12) Osteoarthritis Code(s): M19.90 - UNSPECIFIED OSTEOARTHRITIS, UNSPECIFIED SITE Qualifiers: Osteoarthritis location: hand Osteoarthritis type: primary Laterality: right Qualified Code(s): M19.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
[2018-05-06] MEDS: CHLORTHALIDONE 25 MG TABLET PO SCH (05:21)
[2018-05-06] MEDS: FUROSEMIDE 40 MG/4 ML INJECTABLE VIAL IVPB SCH ×2 (06:24→13:26)
[2018-05-06] MEDS: INSULIN SLIDING SCALE (NOVOLOG) 1 VIAL SQ SCH ×5 (06:24→21:13)
[2018-05-06 07:49] LABS: BASO % 0.8 % (0-2.0); EOS % 2.3 % (0-4.5); HEMATOCRIT 33.4 % (35.4-49); HEMOGLOBIN 10.4 GM/dL (11.7-16.9); LYMPH % 13.9 % (8-40); MCH 24.5 pg (25.7-33.7); MCHC 31.3 g/dl (32.0-35.9); MEAN CELL VOLUME 78.4 fl (80-96); MEAN PLT VOLUME 8.8 fl (7.5-11.1); MONO % 6.7 % (3.8-10.2); NEUT % 76.3 % (42.8-82.8); PLATELET COUNT 185 K/MM3 (134-434); RBC 4.25 M/mm3 (4.00-5.60); RDW 17.7 % (11.9-15.9); WHITE BLOOD COUNT 6.8 K/mm3 (4.0-10.0)
[2018-05-06 08:10] LABS: ALK PHOS 112 U/L (45-117); ANION GAP 6 MMOL/L (8-16); BILIRUBIN,TOTAL 0.7 mg/dL (0.2-1); BLOOD UREA NITROGEN 48 mg/dL (7-18); CALCIUM 8.9 mg/dL (8.5-10.1); CHLORIDE 99 mmol/L (98-107); CO2 32 mmol/L (21-32); CREATININE 2.1 mg/dL (0.55-1.3); GLUCOSE,RANDOM 162 mg/dL (74-106); MAGNESIUM 2.4 mg/dL (1.8-2.4); SGOT/AST 9 U/L (15-37); SGPT/ALT 11 U/L (13-61); SODIUM 137 mmol/L (136-145)
--- NOTE | 2018-05-06 10:06 | PN ---
Progress Note (short form) - Note Progress Note: Chief Complaint: shortness of breath History of Present Illness: edema and sob improving. no chest pain, palps, dizziness. Current Medications Acetaminophen (Tylenol -) 650 mg PO Q4H PRN PRN Reason: PAIN 1-3 Last Admin: 05/05/18 22:32 Dose: 650 mg Aspirin (Ecotrin -) 162 mg PO DAILY [facility] Last Admin: 05/05/18 09:42 Dose: 162 mg Atorvastatin Calcium (Lipitor -) 40 mg PO HS [facility] Last Admin: 05/05/18 21:26 Dose: 40 mg Chlorthalidone (Hygroton -) 25 mg PO DAILY@0500 [facility] Last Admin: 05/06/18 05:21 Dose: 25 mg Finasteride (Proscar -) 5 mg PO DAILY [facility] Last Admin: 05/05/18 09:42 Dose: 5 mg Furosemide (Lasix Injection -) 60 mg IVPB BID@0600,1400 [facility] Last Admin: 05/06/18 06:24 Dose: 60 mg Insulin Aspart (Novolog Vial Sliding Scale -) 1 vial SQ ACHS [facility]; Protocol Last Admin: 05/06/18 06:24 Dose: 4 units Potassium Chloride (K-Dur -) 20 meq PO DAILY [facility] Last Admin: 05/04/18 09:11 Dose: 20 meq Tamsulosin HCl (Flomax -) 0.4 mg PO 0830 [facility] Last Admin: 05/05/18 08:29 Dose: 0.4 mg Vital Signs: Vital Signs Period Temp Pulse Resp BP Sys/Whitehead Pulse Ox Last 24 Hr 97.7 F-98.8 F 58-65 18-20 130-137/57-74 96 Constitutional: Yes: Well Nourished, No Distress, Calm Eyes: Yes: Conjunctiva Clear, EOM Intact HENT: Yes: Atraumatic, Normocephalic Neck: Yes: Supple, Trachea Midline Respiratory: Yes: Regular, Rales ([place] bases) Gastrointestinal: Yes: Normal Bowel Sounds, Soft Cardiovascular: Yes: Pulse Irregular JVD: Yes Carotid Bruit: No PMI: Non-Displaced Heart Sounds: Yes: S1, S2 Extremities: No: Cold Edema: Yes Edema: LLE: 1+, RLE: 1+ Peripheral Pulses WNL: Yes Peripheral Pulses: 2+ Left Carotid, 2+ Right Carotid, 2+ Left Doralis Pedis, 2+ Right Dorsalis Pedis Integumentary: No: Jaundice Neurological: Yes: Alert, Oriented Psychiatric: Yes: Alert, Oriented Assessment/Plan echo 06/2017: mild dec lvef, nl rv, mild mr, mild-mod tr, rvsp 40-50, mild ar, mild pr ecg 04/30: sinus, mobitz 1, with ventricular bigeminy. RBBB, NSST-Ts--similar to 03/15, 01/13 priors CXR 04/30: mild central congestive changes, new L base infiltrate vs atx vs some fluid. CXR 05/01, 05/03: no signif chane or improvement tele: sinus, Mobitz 1, PVCs a/p: 77 m hx cad, mi x2, cabg 2012, pci x2 2016, mobitz I, dchf, copd, dm, htn , hld, ckd here with sob, le edema. acute diastolic chf, atypical CP -here 03/15 with volume overload, treated with lasix 60 iv bid (home dose 80 mg daily vs 40 mg BID at that time) -wts then inaccurate, ranged btw 230-244 lbs in the several days prior to hosp discharge. sent home on lasix 40 bid. -BNP stable, not helpful with low GFR (6K here, from 5K last time) -MAR reviewed: lasix 40 IV once on 04/30, then 40 iv bid, changed to 60 iv bid on 05/03 -CXR shows no improvement in congestive changes +/- ? L effusions vs infiltrate on serial studies -05/04: wt improving, 247 from 255 (standing scale), sob and edema also improving - continue lasix 60 mg IV BID, also received spironolactone today per renal -05/05: weight 247->222 lbs, d/w RN checked multiple times - symptoms improving, however still has JVD, edema. will continue lasix 60 mg IV BID at same dose -05/06 wt 241 lbs, yesterday weight likely inaccurate. edema and sob improving, continue lasix 60 mg IV BID today - monitor Cr, daily weights -troponin neg x 2. ECG no ischemic changes -plan pharm MPI to r/o ischemic substrate contributing to HF tendencies when patient euvolemic CKD: -creat randy from 1.8 to 2.4 on discharge 11/18 s/p chf with iv diuresis -currently renal fxn is stable (creat 2.0) -renal team following pulm HTN: -likely WHO 2 sec to diast chf -no further w/u indicated at present--reconsider if PH persists on f/u echo as outpt once pt well-diuresed, or RV dilation seen in future cad: -stable, no signs acs -cont asa, statin abnl ecg, mobitz 1: -chronic finding, stable htn: -well controlled -same meds hld: -cont statin ckd: -baseline creat 1.8-2.2 - continue lasix 60 mg IV BID, monitor Cr -renal following
[2018-05-06] MEDS: TAMSULOSIN HCL 0.4 MG CAP PO SCH (10:33)
[2018-05-06] MEDS: ASPIRIN COATED 81 MG TABLET.EC PO SCH (10:33)
[2018-05-06] MEDS: FINASTERIDE 5 MG TABLET (FP) PO SCH (10:33)
[2018-05-06] MEDS: ACETAMINOPHEN 325 MG TABLET (FP) PO PRN ×2 (10:33→21:12)
--- NOTE | 2018-05-06 12:07 | PN ---
Progress Note, Physician History of Present Illness: Pt seen and examined at bedside. He is awake and alert. He denies shortness of breath but complains of lower ext edema. - Current Medication List Current Medications: Active Medications Acetaminophen (Tylenol -) 650 mg PO Q4H PRN PRN Reason: PAIN 1-3 Last Admin: 05/06/18 10:33 Dose: 650 mg Aspirin (Ecotrin -) 162 mg PO DAILY [facility] Last Admin: 05/06/18 10:33 Dose: 162 mg Atorvastatin Calcium (Lipitor -) 40 mg PO HS [facility] Last Admin: 05/05/18 21:26 Dose: 40 mg Chlorthalidone (Hygroton -) 25 mg PO DAILY@0500 [facility] Last Admin: 05/06/18 05:21 Dose: 25 mg Finasteride (Proscar -) 5 mg PO DAILY [facility] Last Admin: 05/06/18 10:33 Dose: 5 mg Furosemide (Lasix Injection -) 60 mg IVPB BID@0600,1400 [facility] Last Admin: 05/06/18 06:24 Dose: 60 mg Insulin Aspart (Novolog Vial Sliding Scale -) 1 vial SQ ACHS [facility]; Protocol Last Admin: 05/06/18 06:24 Dose: 4 units Potassium Chloride (K-Dur -) 20 meq PO DAILY [facility] Last Admin: 05/04/18 09:11 Dose: 20 meq Tamsulosin HCl (Flomax -) 0.4 mg PO 0830 [facility] Last Admin: 05/06/18 10:33 Dose: 0.4 mg - Objective Vital Signs: Vital Signs Temperature 98 F 05/06/18 09:00 Pulse Rate 88 05/06/18 09:00 Respiratory Rate 20 05/06/18 09:00 Blood Pressure 130/53 L 05/06/18 09:00 O2 Sat by Pulse Oximetry (%) 96 05/06/18 09:00 Constitutional: Yes: Calm Eyes: Yes: Conjunctiva Clear HENT: Yes: Atraumatic Neck: Yes: Supple Cardiovascular: Yes: S1, S2 Respiratory: Yes: CTA Bilaterally Gastrointestinal: Yes: Soft Genitourinary: Yes: WNL Edema: Yes Edema: LLE: 2+, RLE: 2+ Neurological: Yes: Oriented Psychiatric: Yes: Oriented Labs: CBC, BMP 05/06/18 06:28 05/06/18 06:28 Assessment/Plan Current Medications Generic Name Dose Route Start Last Admin Trade Name Dakotah PRN Reason Stop Dose Admin Acetaminophen 650 mg 04/30/18 16:27 05/06/18 10:33 Tylenol - PO 650 mg Q4H PRN Administration PAIN 1-3 Aspirin 162 mg 05/01/18 10:00 05/06/18 10:33 Ecotrin - PO 162 mg DAILY [facility] Administration Atorvastatin Calcium 40 mg 04/30/18 22:00 05/05/18 21:26 Lipitor - PO 40 mg HS [facility] Administration Chlorthalidone 25 mg 05/03/18 05:00 05/06/18 05:21 Hygroton - PO 25 mg DAILY@0500 [facility] Administration Finasteride 5 mg 05/01/18 10:00 05/06/18 10:33 Proscar - PO 5 mg DAILY [facility] Administration Furosemide 60 mg 05/03/18 06:00 05/06/18 06:24 Lasix Injection - IVPB 60 mg BID@0600,1400 [facility] Administration Insulin Aspart 1 vial 04/30/18 22:00 05/06/18 06:24 Novolog Vial Sliding Scale - SQ 4 units ACHS [facility] Administration Protocol Potassium Chloride 20 meq 05/04/18 10:00 05/04/18 09:11 K-Dur - PO 20 meq DAILY [facility] Administration Tamsulosin HCl 0.4 mg 05/01/18 08:30 05/06/18 10:33 Flomax - PO 0.4 mg 0830 [facility] Administration Impression 1. CKD 2. CHF 3. DM 4. obesity 5. HTN 6. dyspnea 7. HLD 8. CAD s/p cabg 9. volume overload Plan - cont lasix - will give a dose of aldactone today - check ua - monitor potassium levels - monitor renal function - discussed with medical attending - pt never came to office for ckd workup - will follow
[2018-05-06] MEDS ORDERED: SPIRONOLACTONE 25 MG TABLET (FP) PO ONE (12:30)
--- NOTE | 2018-05-06 18:44 | PN ---
Progress Note (short form) - Note Progress Note: patient sitting up in bed noted decreased edema to LE but c/o silveira to his legs neck supple heart s1/S2 Lung decreased at bases / rales a both bases abd soft obese ext + edema bilat CBC, [facility] 05/06/18 06:28 05/06/18 06:28 CBC, [facility] 05/05/18 05:30 05/05/18 05:30 CBC, [facility] 05/03/18 06:40 05/03/18 06:40 Active Medications Acetaminophen (Tylenol -) 650 mg PO Q4H PRN PRN Reason: PAIN 1-3 Last Admin: 05/06/18 10:33 Dose: 650 mg Aspirin (Ecotrin -) 162 mg PO DAILY [facility] Last Admin: 05/06/18 10:33 Dose: 162 mg Atorvastatin Calcium (Lipitor -) 40 mg PO HS [facility] Last Admin: 05/05/18 21:26 Dose: 40 mg Chlorthalidone (Hygroton -) 25 mg PO DAILY@0500 [facility] Last Admin: 05/06/18 05:21 Dose: 25 mg Finasteride (Proscar -) 5 mg PO DAILY [facility] Last Admin: 05/06/18 10:33 Dose: 5 mg Furosemide (Lasix Injection -) 60 mg IVPB BID@0600,1400 [facility] Last Admin: 05/06/18 13:26 Dose: 60 mg Insulin Aspart (Novolog Vial Sliding Scale -) 1 vial SQ ACHS [facility]; Protocol Last Admin: 05/06/18 18:03 Dose: 6 units Potassium Chloride (K-Dur -) 20 meq PO DAILY [facility] Last Admin: 05/04/18 09:11 Dose: 20 meq Tamsulosin HCl (Flomax -) 0.4 mg PO 0830 [facility] Last Admin: 05/06/18 10:33 Dose: 0.4 mg # HF increase in Cr and Co2 will need to decrease diuretics appreciate cardio / renal follow up lower current lasix dosing daily weights trend renal function # CKD trend renal function ( baseline 1.8-2.0) known to nephro # BPH continue home meds # DM statins / asa sliding scale bs ACEi once renal function stable # CAD stable -- CP 2/2 to HF CE neg Problem List - Problems (1) CHF exacerbation Code(s): I50.9 - HEART FAILURE, UNSPECIFIED (2) Acute on chronic diastolic (congestive) heart failure Code(s): I50.33 - ACUTE ON CHRONIC DIASTOLIC (CONGESTIVE) HEART FAILURE (3) BPH associated with nocturia Code(s): N40.1 - BENIGN PROSTATIC HYPERPLASIA WITH LOWER URINARY TRACT SYMP; R35.1 - NOCTURIA (4) CKD (chronic kidney disease) Code(s): N18.9 - CHRONIC KIDNEY DISEASE, UNSPECIFIED (5) Diabetes Code(s): E11.9 - TYPE 2 DIABETES MELLITUS WITHOUT COMPLICATIONS Qualifiers: Diabetes mellitus [facility] insulin use: with [facility] use Diabetes mellitus complication detail: with unspecified neuropathy (6) Leg edema Code(s): R60.0 - LOCALIZED EDEMA (7) HTN (hypertension) Code(s): I10 - ESSENTIAL (PRIMARY) HYPERTENSION (8) Hx of CABG Code(s): Z95.1 - PRESENCE OF AORTOCORONARY BYPASS GRAFT (9) Hyperlipidemia Code(s): E78.5 - HYPERLIPIDEMIA, UNSPECIFIED (10) Inflammatory arthritis Code(s): M19.90 - UNSPECIFIED OSTEOARTHRITIS, UNSPECIFIED SITE (11) Morbid obesity Code(s): E66.01 - MORBID (SEVERE) OBESITY DUE TO EXCESS CALORIES (12) Osteoarthritis Code(s): M19.90 - UNSPECIFIED OSTEOARTHRITIS, UNSPECIFIED SITE Qualifiers: Osteoarthritis location: hand Osteoarthritis type: primary Laterality: right Qualified Code(s): M19.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
[2018-05-06] MEDS: ATORVASTATIN CA 40 MG TABLET (FP) PO SCH (21:12)
[2018-05-07] MEDS ORDERED: PT OWN MED DRAWER 7, Y5N ONE ×2 (05:18→13:31)
[2018-05-07] MEDS: CHLORTHALIDONE 25 MG TABLET PO SCH (05:25)
[2018-05-07] MEDS: INSULIN SLIDING SCALE (NOVOLOG) 1 VIAL SQ SCH ×4 (06:23→21:58)
[2018-05-07] MEDS: FUROSEMIDE 40 MG/4 ML INJECTABLE VIAL IVPB SCH ×2 (06:53→13:28)
--- NOTE | 2018-05-07 10:08 | PN ---
Progress Note (short form) - Note Progress Note: 77 y/o male found sitting in room. Reports intermittent SOB and c/o of dry eyes. Vital Signs Period Temp Pulse Resp BP Sys/Whitehead Pulse Ox Last 24 Hr 97.6 F-98.8 F 59-90 18-20 117-138/53-67 96 CBC, BMP 05/06/18 06:28 05/06/18 06:28 HEENT- Normocephalic Neck- supple Lungs- Diminished throughout Heart- S1/S2 Abd- obese, soft, nt Ext- Edema decreased b/l Active Medications Acetaminophen (Tylenol -) 650 mg PO Q4H PRN PRN Reason: PAIN 1-3 Last Admin: 05/06/18 21:12 Dose: 650 mg Aspirin (Ecotrin -) 162 mg PO DAILY [facility] Last Admin: 05/06/18 10:33 Dose: 162 mg Atorvastatin Calcium (Lipitor -) 40 mg PO HS [facility] Last Admin: 05/06/18 21:12 Dose: 40 mg Chlorthalidone (Hygroton -) 25 mg PO DAILY@0500 [facility] Last Admin: 05/07/18 05:25 Dose: 25 mg Finasteride (Proscar -) 5 mg PO DAILY [facility] Last Admin: 05/06/18 10:33 Dose: 5 mg Furosemide (Lasix Injection -) 60 mg IVPB BID@0600,1400 [facility] Last Admin: 05/07/18 06:53 Dose: 60 mg Insulin Aspart (Novolog Vial Sliding Scale -) 1 vial SQ ACHS [facility]; Protocol Last Admin: 05/07/18 06:23 Dose: Not Given Potassium Chloride (K-Dur -) 20 meq PO DAILY [facility] Last Admin: 05/04/18 09:11 Dose: 20 meq Tamsulosin HCl (Flomax -) 0.4 mg PO 0830 [facility] Last Admin: 05/06/18 10:33 Dose: 0.4 mg # HF trend Cr and Co2 daily weights # CKD trend renal function ( baseline 1.8-2.0) renal consult appreciated ua requested #Dry eyes Tears ordered # BPH continue home meds # DM statins / asa sliding scale ACEi once renal function stable # CAD stable -- CP 2/2 to HF Problem List - Problems (1) CHF exacerbation Code(s): I50.9 - HEART FAILURE, UNSPECIFIED (2) Acute on chronic diastolic (congestive) heart failure Code(s): I50.33 - ACUTE ON CHRONIC DIASTOLIC (CONGESTIVE) HEART FAILURE (3) BPH associated with nocturia Code(s): N40.1 - BENIGN PROSTATIC HYPERPLASIA WITH LOWER URINARY TRACT SYMP; R35.1 - NOCTURIA (4) CKD (chronic kidney disease) Code(s): N18.9 - CHRONIC KIDNEY DISEASE, UNSPECIFIED (5) Diabetes Code(s): E11.9 - TYPE 2 DIABETES MELLITUS WITHOUT COMPLICATIONS Qualifiers: Diabetes mellitus intermediate insulin use: with terminal superintendent use Diabetes mellitus complication detail: with unspecified neuropathy (6) Leg edema Code(s): R60.0 - LOCALIZED EDEMA (7) HTN (hypertension) Code(s): I10 - ESSENTIAL (PRIMARY) HYPERTENSION (8) Hx of CABG Code(s): Z95.1 - PRESENCE OF AORTOCORONARY BYPASS GRAFT (9) Hyperlipidemia Code(s): E78.5 - HYPERLIPIDEMIA, UNSPECIFIED (10) Inflammatory arthritis Code(s): M19.90 - UNSPECIFIED OSTEOARTHRITIS, UNSPECIFIED SITE (11) Morbid obesity Code(s): E66.01 - MORBID (SEVERE) OBESITY DUE TO EXCESS CALORIES (12) Osteoarthritis Code(s): M19.90 - UNSPECIFIED OSTEOARTHRITIS, UNSPECIFIED SITE Qualifiers: Osteoarthritis location: hand Osteoarthritis type: primary Laterality: right Qualified Code(s): M19.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
[2018-05-07] MEDS: FINASTERIDE 5 MG TABLET (FP) PO SCH (10:57)
[2018-05-07] MEDS: ACETAMINOPHEN 325 MG TABLET (FP) PO PRN ×2 (10:58→20:45)
[2018-05-07] MEDS: POTASSIUM CHLORIDE TABS 20 MEQ TABLET.ER (FP) PO SCH (10:58)
[2018-05-07] MEDS: ASPIRIN COATED 81 MG TABLET.EC PO SCH (10:58)
[2018-05-07] MEDS: TAMSULOSIN HCL 0.4 MG CAP PO SCH (10:58)
--- NOTE | 2018-05-07 11:37 | PN ---
Progress Note (short form) - Note Progress Note: Chief Complaint: shortness of breath History of Present Illness: edema and sob improving. no chest pain, palps, dizziness. Current Medications Generic Name Dose Route Start Last Admin Trade Name Dakotah PRN Reason Stop Dose Admin Acetaminophen 650 mg 04/30/18 16:27 05/07/18 10:58 Tylenol - PO 650 mg Q4H PRN Administration PAIN 1-3 Artificial Tears 1 drop 05/07/18 10:17 Artificial Tears OU QID PRN DRY EYES Aspirin 162 mg 05/01/18 10:00 05/07/18 10:58 Ecotrin - PO 162 mg DAILY [facility] Administration Atorvastatin Calcium 40 mg 04/30/18 22:00 05/06/18 21:12 Lipitor - PO 40 mg HS [facility] Administration Chlorthalidone 25 mg 05/03/18 05:00 05/07/18 05:25 Hygroton - PO 25 mg DAILY@0500 [facility] Administration Finasteride 5 mg 05/01/18 10:00 05/07/18 10:57 Proscar - PO 5 mg DAILY [facility] Administration Furosemide 60 mg 05/03/18 06:00 05/07/18 06:53 Lasix Injection - IVPB 60 mg BID@0600,1400 [facility] Administration Insulin Aspart 1 vial 04/30/18 22:00 05/07/18 06:23 Novolog Vial Sliding Scale - SQ Not Given ACHS [facility] Protocol Potassium Chloride 20 meq 05/04/18 10:00 05/07/18 10:58 K-Dur - PO 20 meq DAILY [facility] Administration Tamsulosin HCl 0.4 mg 05/01/18 08:30 05/07/18 10:58 Flomax - PO 0.4 mg 0830 [facility] Administration Vital Signs: Vital Signs Period Temp Pulse Resp BP Sys/Whitehead Pulse Ox Last 24 Hr 97.6 F-98.8 F 59-90 18-20 117-138/53-67 96 Constitutional: Yes: Well Nourished, No Distress, Calm Eyes: Yes: Conjunctiva Clear, EOM Intact HENT: Yes: Atraumatic, Normocephalic Neck: Yes: Supple, Trachea Midline Respiratory: cta bl nl eff Gastrointestinal: Yes: Normal Bowel Sounds, Soft Cardiovascular: Yes: Pulse Irregular JVD: no Heart Sounds: Yes: S1, S2 Extremities: No: Cold Edema: Yes Edema: trace le edema bl Peripheral Pulses: 2+ Left Carotid, 2+ Right Carotid, 2+ Left Doralis Pedis, 2+ Right Dorsalis Pedis Integumentary: No: Jaundice Neurological: Yes: Alert, Oriented CBC, BMP 05/06/18 06:28 05/06/18 06:28 Assessment/Plan echo 06/2017: mild dec lvef, nl rv, mild mr, mild-mod tr, rvsp 40-50, mild ar, mild pr ecg 04/30: sinus, mobitz 1, with ventricular bigeminy. RBBB, NSST-Ts--similar to 03/15, 01/13 priors CXR 04/30: mild central congestive changes, new L base infiltrate vs atx vs some fluid. CXR 05/01, 05/03: no signif chane or improvement tele: sinus, Mobitz 1, PVCs a/p: 77 m hx cad, mi x2, cabg 2012, pci x2 2016, mobitz I, dchf, copd, dm, htn , hld, ckd here with sob, le edema. acute diastolic chf, atypical CP -here 03/15 with volume overload, treated with lasix 60 iv bid (home dose 80 mg daily vs 40 mg BID at that time) -wts then inaccurate, ranged btw 230-244 lbs in the several days prior to hosp discharge. sent home on lasix 40 bid. -BNP stable, not helpful with low GFR (6K here, from 5K last time) -MAR reviewed: lasix 40 IV once on 04/30, then 40 iv bid, changed to 60 iv bid on 05/03 -CXR shows no improvement in congestive changes +/- ? L effusions vs infiltrate on serial studies -05/04: wt improving, 247 from 255 (standing scale), sob and edema also improving - continue lasix 60 mg IV BID, also received spironolactone today per renal -05/05: weight 247->222 lbs, d/w RN checked multiple times - symptoms improving, however still has JVD, edema. will continue lasix 60 mg IV BID at same dose -05/06-: wt down. edema and sob improving, continue lasix 60 mg IV BID today - monitor Cr, daily weights -troponin neg x 2. ECG no ischemic changes -plan pharm MPI to r/o ischemic substrate contributing to HF tendencies when patient euvolemic-->pt has no orthopnea and near baseline, will plan for mibi tomorrow CKD: -creat randy from 1.8 to 2.4 on discharge 03/15 s/p chf with iv diuresis -currently renal fxn is stable (creat 2.0) -renal team following pulm HTN: -likely WHO 2 sec to diast chf -no further w/u indicated at present--reconsider if PH persists on f/u echo as outpt once pt well-diuresed, or RV dilation seen in future cad: -stable, no signs acs -cont asa, statin abnl ecg, mobitz 1: -chronic finding, stable htn: -well controlled -same meds hld: -cont statin ckd: -baseline creat 1.8-2.2 - continue lasix 60 mg IV BID, monitor Cr -renal following
[2018-05-07] MEDS: ARTIFICIAL TEARS (POLYVINYL ALCOHOL) OPTH DROPS OU PRN ×2 (13:29→21:59)
[2018-05-07] MEDS ORDERED: SPIRONOLACTONE 25 MG TABLET (FP) PO ONE (14:16)
--- NOTE | 2018-05-07 14:16 | PN ---
Progress Note, Physician History of Present Illness: Pt seen and examined at bedside. He is awake and alert. He denies shortness of breath. He complains of lower ext edema. - Current Medication List Current Medications: Active Medications Acetaminophen (Tylenol -) 650 mg PO Q4H PRN PRN Reason: PAIN 1-3 Last Admin: 05/07/18 10:58 Dose: 650 mg Artificial Tears (Artificial Tears) 1 drop OU QID PRN PRN Reason: DRY EYES Last Admin: 05/07/18 13:29 Dose: 1 drop Aspirin (Ecotrin -) 162 mg PO DAILY [facility] Last Admin: 05/07/18 10:58 Dose: 162 mg Atorvastatin Calcium (Lipitor -) 40 mg PO HS [facility] Last Admin: 05/06/18 21:12 Dose: 40 mg Chlorthalidone (Hygroton -) 25 mg PO DAILY@0500 [facility] Last Admin: 05/07/18 05:25 Dose: 25 mg Finasteride (Proscar -) 5 mg PO DAILY [facility] Last Admin: 05/07/18 10:57 Dose: 5 mg Furosemide (Lasix Injection -) 60 mg IVPB BID@0600,1400 [facility] Last Admin: 05/07/18 13:28 Dose: 60 mg Insulin Aspart (Novolog Vial Sliding Scale -) 1 vial SQ ACHS [facility]; Protocol Last Admin: 05/07/18 13:28 Dose: 4 units Potassium Chloride (K-Dur -) 20 meq PO DAILY [facility] Last Admin: 05/07/18 10:58 Dose: 20 meq Tamsulosin HCl (Flomax -) 0.4 mg PO 0830 [facility] Last Admin: 05/07/18 10:58 Dose: 0.4 mg - Objective Vital Signs: Vital Signs Temperature 97.6 F 05/07/18 05:28 Pulse Rate 60 05/07/18 05:28 Respiratory Rate 20 05/07/18 05:28 Blood Pressure 138/67 05/07/18 05:28 O2 Sat by Pulse Oximetry (%) 96 05/06/18 21:00 Constitutional: Yes: Calm Eyes: Yes: Conjunctiva Clear HENT: Yes: Atraumatic Cardiovascular: Yes: S1, S2 Respiratory: Yes: CTA Bilaterally Gastrointestinal: Yes: Normal Bowel Sounds, Soft Genitourinary: Yes: WNL Musculoskeletal: Yes: WNL Edema: Yes Edema: LLE: 2+, RLE: 2+ Neurological: Yes: Oriented Psychiatric: Yes: Oriented Labs: CBC, BMP 05/06/18 06:28 05/06/18 06:28 Assessment/Plan Current Medications Generic Name Dose Route Start Last Admin Trade Name Dakotah PRN Reason Stop Dose Admin Acetaminophen 650 mg 04/30/18 16:27 05/07/18 10:58 Tylenol - PO 650 mg Q4H PRN Administration PAIN 1-3 Artificial Tears 1 drop 05/07/18 10:17 05/07/18 13:29 Artificial Tears OU 1 drop QID PRN Administration DRY EYES Aspirin 162 mg 05/01/18 10:00 05/07/18 10:58 Ecotrin - PO 162 mg DAILY [facility] Administration Atorvastatin Calcium 40 mg 04/30/18 22:00 05/06/18 21:12 Lipitor - PO 40 mg HS [facility] Administration Chlorthalidone 25 mg 05/03/18 05:00 05/07/18 05:25 Hygroton - PO 25 mg DAILY@0500 [facility] Administration Finasteride 5 mg 05/01/18 10:00 05/07/18 10:57 Proscar - PO 5 mg DAILY [facility] Administration Furosemide 60 mg 05/03/18 06:00 05/07/18 13:28 Lasix Injection - IVPB 60 mg BID@0600,1400 [facility] Administration Insulin Aspart 1 vial 04/30/18 22:00 05/07/18 13:28 Novolog Vial Sliding Scale - SQ 4 units ACHS [facility] Administration Protocol Potassium Chloride 20 meq 05/04/18 10:00 05/07/18 10:58 K-Dur - PO 20 meq DAILY [facility] Administration Tamsulosin HCl 0.4 mg 05/01/18 08:30 05/07/18 10:58 Flomax - PO 0.4 mg 0830 [facility] Administration Impression 1. CKD 2. CHF 3. DM 4. obesity 5. HTN 6. dyspnea 7. HLD 8. CAD s/p cabg 9. volume overload Plan - cont lasix - cont aldactone - check bmp - cardio input appreciated - monitor volume status - will need ckd workup - follow up UA - will follow
[2018-05-07] MEDS: ATORVASTATIN CA 40 MG TABLET (FP) PO SCH (21:32)
[2018-05-07 22:41] LABS: URINE APPEARANCE CLEAR; URINE BILIRUBIN NEGATIVE (<2.0 mg/dL); URINE COLOR LTYELLOW; URINE GLUCOSE (UA) NEGATIVE (NEGATIVE); URINE KETONE NEGATIVE (NEGATIVE); URINE LEUK ESTERASE NEGATIVE (NEGATIVE); URINE NITRITE NEGATIVE (NEGATIVE); URINE PROTEIN 2+ (NEGATIVE)
[2018-05-07 22:46] LABS: EPI CELLS RARE /HPF (FEW); URINE HYALINE CAST 1 /lpf; URINE MUCUS RARE
[2018-05-08] MEDS: CHLORTHALIDONE 25 MG TABLET PO SCH (05:48)
[2018-05-08] MEDS: INSULIN SLIDING SCALE (NOVOLOG) 1 VIAL SQ SCH ×4 (06:20→22:37)
[2018-05-08] MEDS: FUROSEMIDE 40 MG/4 ML INJECTABLE VIAL IVPB SCH ×2 (06:20→15:56)
[2018-05-08 06:51] LABS: BASO % 0.7 % (0-2.0); EOS % 2.4 % (0-4.5); HEMATOCRIT 35.2 % (35.4-49); HEMOGLOBIN 10.9 GM/dL (11.7-16.9); LYMPH % 15.9 % (8-40); MCH 24.4 pg (25.7-33.7); MCHC 30.9 g/dl (32.0-35.9); MEAN CELL VOLUME 78.8 fl (80-96); MEAN PLT VOLUME 8.6 fl (7.5-11.1); MONO % 6.4 % (3.8-10.2); NEUT % 74.6 % (42.8-82.8); PLATELET COUNT 203 K/MM3 (134-434); RBC 4.46 M/mm3 (4.00-5.60); RDW 17.3 % (11.9-15.9)
[2018-05-08 07:26] LABS: ALK PHOS 109 U/L (45-117); ANION GAP 8 MMOL/L (8-16); BILIRUBIN,TOTAL 0.6 mg/dL (0.2-1); BLOOD UREA NITROGEN 54 mg/dL (7-18); CALCIUM 8.9 mg/dL (8.5-10.1); CHLORIDE 100 mmol/L (98-107); CO2 29 mmol/L (21-32); CREATININE 2.2 mg/dL (0.55-1.3); GLUCOSE,RANDOM 180 mg/dL (74-106); POTASSIUM 4.1 mmol/L (3.5-5.1); SGOT/AST 9 U/L (15-37); SGPT/ALT 12 U/L (13-61); SODIUM 136 mmol/L (136-145); TOT PROT 7.1 g/dl (6.4-8.2)
[2018-05-08] MEDS ORDERED: REGADENOSON 0.4 MG/5 ML PRE-FILLED SYRINGE IVPUSH ONE ×2 (09:15→10:08)
[2018-05-08] MEDS ORDERED: AMINOPHYLLINE 250 MG/10 ML VIAL ONE (11:11)
[2018-05-08] MEDS: TAMSULOSIN HCL 0.4 MG CAP PO SCH (11:19)
[2018-05-08] MEDS: ASPIRIN COATED 81 MG TABLET.EC PO SCH (11:20)
[2018-05-08] MEDS: FINASTERIDE 5 MG TABLET (FP) PO SCH (11:20)
[2018-05-08] MEDS: POTASSIUM CHLORIDE TABS 20 MEQ TABLET.ER (FP) PO SCH (11:20)
--- NOTE | 2018-05-08 11:39 | PN ---
Progress Note, Physician History of Present Illness: Pt seen and examined at bedside. He is getting a stress test. He denies chest pain. He feels that the edema is improving. - Current Medication List Current Medications: Active Medications Acetaminophen (Tylenol -) 650 mg PO Q4H PRN PRN Reason: PAIN 1-3 Last Admin: 05/07/18 20:45 Dose: 650 mg Artificial Tears (Artificial Tears) 1 drop OU QID PRN PRN Reason: DRY EYES Last Admin: 05/07/18 21:59 Dose: 1 drop Aspirin (Ecotrin -) 162 mg PO DAILY [facility] Last Admin: 05/08/18 11:20 Dose: Not Given Atorvastatin Calcium (Lipitor -) 40 mg PO HS [facility] Last Admin: 05/07/18 21:32 Dose: 40 mg Chlorthalidone (Hygroton -) 25 mg PO DAILY@0500 [facility] Last Admin: 05/08/18 05:48 Dose: Not Given Finasteride (Proscar -) 5 mg PO DAILY [facility] Last Admin: 05/08/18 11:20 Dose: Not Given Furosemide (Lasix Injection -) 60 mg IVPB BID@0600,1400 [facility] Last Admin: 05/08/18 06:20 Dose: Not Given Insulin Aspart (Novolog Vial Sliding Scale -) 1 vial SQ ACHS [facility]; Protocol Last Admin: 05/08/18 11:20 Dose: Not Given Potassium Chloride (K-Dur -) 20 meq PO DAILY [facility] Last Admin: 05/08/18 11:20 Dose: Not Given Tamsulosin HCl (Flomax -) 0.4 mg PO 0830 [facility] Last Admin: 05/08/18 11:19 Dose: Not Given - Objective Vital Signs: Vital Signs Temperature 98.2 F 05/08/18 05:00 Pulse Rate 72 05/08/18 05:00 Respiratory Rate 20 05/08/18 05:00 Blood Pressure 135/81 05/08/18 05:00 O2 Sat by Pulse Oximetry (%) 96 05/07/18 20:04 Constitutional: Yes: Calm Eyes: Yes: Conjunctiva Clear HENT: Yes: Atraumatic Cardiovascular: Yes: S1, S2 Respiratory: Yes: CTA Bilaterally Gastrointestinal: Yes: Soft Genitourinary: Yes: WNL Edema: Yes Edema: LLE: 1+, RLE: 1+ Neurological: Yes: Oriented Psychiatric: Yes: Oriented Labs: CBC, BMP 05/08/18 05:30 05/08/18 05:30 Assessment/Plan Current Medications Generic Name Dose Route Start Last Admin Trade Name Dakotah PRN Reason Stop Dose Admin Acetaminophen 650 mg 04/30/18 16:27 05/07/18 20:45 Tylenol - PO 650 mg Q4H PRN Administration PAIN 1-3 Artificial Tears 1 drop 05/07/18 10:17 05/07/18 21:59 Artificial Tears OU 1 drop QID PRN Administration DRY EYES Aspirin 162 mg 05/01/18 10:00 05/08/18 11:20 Ecotrin - PO Not Given DAILY [facility] Atorvastatin Calcium 40 mg 04/30/18 22:00 05/07/18 21:32 Lipitor - PO 40 mg HS [facility] Administration Chlorthalidone 25 mg 05/03/18 05:00 05/08/18 05:48 Hygroton - PO Not Given DAILY@0500 [facility] Finasteride 5 mg 05/01/18 10:00 05/08/18 11:20 Proscar - PO Not Given DAILY [facility] Furosemide 60 mg 05/03/18 06:00 05/08/18 06:20 Lasix Injection - IVPB Not Given BID@0600,1400 [facility] Insulin Aspart 1 vial 04/30/18 22:00 05/08/18 11:20 Novolog Vial Sliding Scale - SQ Not Given ACHS [facility] Protocol Potassium Chloride 20 meq 05/04/18 10:00 05/08/18 11:20 K-Dur - PO Not Given DAILY [facility] Tamsulosin HCl 0.4 mg 05/01/18 08:30 05/08/18 11:19 Flomax - PO Not Given 0830 [facility] Laboratory Tests 05/07/18 22:15 Urine Protein 2+ H Urine Blood 1+ H Impression 1. CKD 2. CHF 3. DM 4. obesity 5. HTN 6. dyspnea 7. HLD 8. CAD s/p cabg 9. volume overload Plan - cont diuretics - follow stress test - volume status improving - will see pt in office - will need ckd workup - unclear why he is not on an manohar or arb, consider starting low dose, will discuss with medical team first - will follow
--- NOTE | 2018-05-08 12:21 | PN ---
Progress Note (short form) - Note Progress Note: Chief Complaint: shortness of breath History of Present Illness: edema and sob improving. no chest pain, palps, dizziness. Current Medications Generic Name Dose Route Start Last Admin Trade Name Frekatie PRN Reason Stop Dose Admin Acetaminophen 650 mg 04/30/18 16:27 05/07/18 20:45 Tylenol - PO 650 mg Q4H PRN Administration PAIN 1-3 Artificial Tears 1 drop 05/07/18 10:17 05/07/18 21:59 Artificial Tears OU 1 drop QID PRN Administration DRY EYES Aspirin 162 mg 05/01/18 10:00 05/08/18 11:20 Ecotrin - PO Not Given DAILY [facility] Atorvastatin Calcium 40 mg 04/30/18 22:00 05/07/18 21:32 Lipitor - PO 40 mg HS [facility] Administration Chlorthalidone 25 mg 05/03/18 05:00 05/08/18 05:48 Hygroton - PO Not Given DAILY@0500 [facility] Finasteride 5 mg 05/01/18 10:00 05/08/18 11:20 Proscar - PO Not Given DAILY [facility] Furosemide 60 mg 05/03/18 06:00 05/08/18 06:20 Lasix Injection - IVPB Not Given BID@0600,1400 [facility] Insulin Aspart 1 vial 04/30/18 22:00 05/08/18 11:20 Novolog Vial Sliding Scale - SQ Not Given [facility] Protocol Potassium Chloride 20 meq 05/04/18 10:00 05/08/18 11:20 K-Dur - PO Not Given DAILY [facility] Tamsulosin HCl 0.4 mg 05/01/18 08:30 05/08/18 11:19 Flomax - PO Not Given 0830 [facility] Vital Signs: Vital Signs Period Temp Pulse Resp BP Sys/Whitehead Pulse Ox Last 24 Hr 97.4 F-98.2 F 62-72 18-20 134-144/65-81 96 Constitutional: Yes: Well Nourished, No Distress, Calm Eyes: Yes: Conjunctiva Clear, EOM Intact HENT: Yes: Atraumatic, Normocephalic Neck: Yes: Supple, Trachea Midline Respiratory: cta bl nl eff Gastrointestinal: Yes: Normal Bowel Sounds, Soft Cardiovascular: Yes: Pulse Irregular JVD: no Heart Sounds: Yes: S1, S2 Extremities: No: Cold Edema: Yes Edema: trace le edema bl Peripheral Pulses: 2+ Left Carotid, 2+ Right Carotid, 2+ Left Doralis Pedis, 2+ Right Dorsalis Pedis Integumentary: No: Jaundice Neurological: Yes: Alert, Oriented CBC, BMP 05/08/18 05:30 05/08/18 05:30 Assessment/Plan echo 06/2017: mild dec lvef, nl rv, mild mr, mild-mod tr, rvsp 40-50, mild ar, mild pr ecg 04/30: sinus, mobitz 1, with ventricular bigeminy. RBBB, NSST-Ts--similar to 03/15, 01/13 priors CXR 04/30: mild central congestive changes, new L base infiltrate vs atx vs some fluid. CXR 05/01, 05/03: no signif chane or improvement tele: sinus, Mobitz 1, PVCs a/p: 77 m hx cad, mi x2, cabg 2012, pci x2 2017, mobitz I, dchf, copd, dm, htn , hld, ckd here with sob, le edema. acute diastolic chf, atypical CP -here 03/15 with volume overload, treated with lasix 60 iv bid (home dose 80 mg daily vs 40 mg BID at that time) -wts then inaccurate, ranged btw 230-244 lbs in the several days prior to hosp discharge. sent home on lasix 40 bid. -BNP stable, not helpful with low GFR (6K here, from 5K last time) -MAR reviewed: lasix 40 IV once on 04/30, then 40 iv bid, changed to 60 iv bid on 05/03 -CXR shows no improvement in congestive changes +/- ? L effusions vs infiltrate on serial studies -05/04: wt improving, 247 from 255 (standing scale), sob and edema also improving - continue lasix 60 mg IV BID, also received spironolactone today per renal -05/05: weight 247->222 lbs, d/w RN checked multiple times - symptoms improving, however still has JVD, edema. will continue lasix 60 mg IV BID at same dose -05/06-: wt down. edema and sob improving, continue lasix 60 mg IV BID today - monitor Cr, daily weights -troponin neg x 2. ECG no ischemic changes -pharm MPI to r/o ischemic substrate contributing to HF tendencies done today, results pending CKD: -creat randy from 1.8 to 2.4 on discharge 03/15 s/p chf with iv diuresis -currently renal fxn is stable (creat 2.0) -renal team following pulm HTN: -likely WHO 2 sec to diast chf -no further w/u indicated at present--reconsider if PH persists on f/u echo as outpt once pt well-diuresed, or RV dilation seen in future cad: -stable, no signs acs -cont asa, statin abnl ecg, mobitz 1: -chronic finding, stable htn: -well controlled -same meds hld: -cont statin ckd: -baseline creat 1.8-2.2 - continue lasix 60 mg IV BID, monitor Cr -renal following
[2018-05-08] MEDS: ATORVASTATIN CA 40 MG TABLET (FP) PO SCH (22:37)
[2018-05-09] MEDS ORDERED: PT OWN MED DRAWER 7, Y5N ONE ×2 (05:31→08:19)
[2018-05-09] MEDS: CHLORTHALIDONE 25 MG TABLET PO SCH (05:37)
[2018-05-09] MEDS: FUROSEMIDE 40 MG/4 ML INJECTABLE VIAL IVPB SCH ×2 (06:38→14:24)
[2018-05-09] MEDS: INSULIN SLIDING SCALE (NOVOLOG) 1 VIAL SQ SCH ×4 (06:43→21:34)
[2018-05-09] MEDS: ACETAMINOPHEN 325 MG TABLET (FP) PO PRN ×2 (10:16→21:33)
[2018-05-09] MEDS: TAMSULOSIN HCL 0.4 MG CAP PO SCH (10:17)
[2018-05-09] MEDS: POTASSIUM CHLORIDE TABS 20 MEQ TABLET.ER (FP) PO SCH (10:17)
[2018-05-09] MEDS: ASPIRIN COATED 81 MG TABLET.EC PO SCH (10:17)
[2018-05-09] MEDS: FINASTERIDE 5 MG TABLET (FP) PO SCH (10:18)
--- NOTE | 2018-05-09 10:27 | PN ---
Progress Note (short form) - Note Progress Note: Chief Complaint: shortness of breath History of Present Illness: edema and sob improving. no chest pain, palps, dizziness. Current Medications Generic Name Dose Route Start Last Admin Trade Name Dakotah PRN Reason Stop Dose Admin Acetaminophen 650 mg 04/30/18 16:27 05/09/18 10:16 Tylenol - PO 650 mg Q4H PRN Administration PAIN 1-3 Artificial Tears 1 drop 05/07/18 10:17 05/07/18 21:59 Artificial Tears OU 1 drop QID PRN Administration DRY EYES Aspirin 162 mg 05/01/18 10:00 05/09/18 10:17 Ecotrin - PO 162 mg DAILY [facility] Administration Atorvastatin Calcium 40 mg 04/30/18 22:00 05/08/18 22:37 Lipitor - PO 40 mg HS [facility] Administration Chlorthalidone 25 mg 05/03/18 05:00 05/09/18 05:37 Hygroton - PO 25 mg DAILY@0500 [facility] Administration Finasteride 5 mg 05/01/18 10:00 05/09/18 10:18 Proscar - PO 5 mg DAILY [facility] Administration Furosemide 60 mg 05/03/18 06:00 05/09/18 06:38 Lasix Injection - IVPB 60 mg BID@0600,1400 [facility] Administration Insulin Aspart 1 vial 04/30/18 22:00 05/09/18 06:43 Novolog Vial Sliding Scale - SQ Not Given ACHS [facility] Protocol Potassium Chloride 20 meq 05/04/18 10:00 05/09/18 10:17 K-Dur - PO 20 meq DAILY [facility] Administration Tamsulosin HCl 0.4 mg 05/01/18 08:30 05/09/18 10:17 Flomax - PO 0.4 mg 0830 [facility] Administration Vital Signs: Vital Signs Period Temp Pulse Resp BP Sys/Whitehead Pulse Ox Last 24 Hr 97.3 F-98.2 F 55-72 18-20 126-155/54-69 98 Constitutional: Yes: Well Nourished, No Distress, Calm Eyes: Yes: Conjunctiva Clear, EOM Intact HENT: Yes: Atraumatic, Normocephalic Neck: Yes: Supple, Trachea Midline Respiratory: cta bl nl eff Gastrointestinal: Yes: Normal Bowel Sounds, Soft Cardiovascular: Yes: Pulse Irregular JVD: no Heart Sounds: Yes: S1, S2 Extremities: No: Cold Edema: Yes Edema: trace le edema bl Peripheral Pulses: 2+ Left Carotid, 2+ Right Carotid, 2+ Left Doralis Pedis, 2+ Right Dorsalis Pedis Integumentary: No: Jaundice Neurological: Yes: Alert, Oriented CBC, BMP 05/08/18 05:30 05/08/18 05:30 Assessment/Plan echo 06/2017: mild dec lvef, nl rv, mild mr, mild-mod tr, rvsp 40-50, mild ar, mild pr ecg 04/30: sinus, mobitz 1, with ventricular bigeminy. RBBB, NSST-Ts--similar to 03/15, 01/13 priors CXR 04/30: mild central congestive changes, new L base infiltrate vs atx vs some fluid. CXR 05/01, 05/03: no signif chane or improvement tele: sinus, Mobitz 1, PVCs a/p: 77 m hx cad, mi x2, cabg 2012, pci x2 2016, mobitz I, dchf, copd, dm, htn , hld, ckd here with sob, le edema. acute diastolic chf, atypical CP -here 03/15 with volume overload, treated with lasix 60 iv bid (home dose 80 mg daily vs 40 mg BID at that time) -wts then inaccurate, ranged btw 230-244 lbs in the several days prior to hosp discharge. sent home on lasix 40 bid. -BNP stable, not helpful with low GFR (6K here, from 5K last time) -MAR reviewed: lasix 40 IV once on 04/30, then 40 iv bid, changed to 60 iv bid on 05/03 -CXR shows no improvement in congestive changes +/- ? L effusions vs infiltrate on serial studies -05/04: wt improving, 247 from 255 (standing scale), sob and edema also improving - continue lasix 60 mg IV BID, also received spironolactone today per renal -05/05: weight 247->222 lbs, d/w RN checked multiple times - symptoms improving, however still has JVD, edema. will continue lasix 60 mg IV BID at same dose -05/06-: wt down. edema and sob improving, continue lasix 60 mg IV BID today, can likely change to po tomorrow, was on 40 bid at home, would change to 80 po bid upon dc. - monitor Cr, daily weights -troponin neg x 2. ECG no ischemic changes -pharm MPI to r/o ischemic substrate contributing to HF tendencies done today, results pending CKD: -creat randy from 1.8 to 2.4 on discharge 03/15 s/p chf with iv diuresis -currently renal fxn is stable (creat 2.0) -renal team following pulm HTN: -likely WHO 2 sec to diast chf -no further w/u indicated at present--reconsider if PH persists on f/u echo as outpt once pt well-diuresed, or RV dilation seen in future cad: -stable, no signs acs -cont asa, statin abnl ecg, mobitz 1: -chronic finding, stable htn: -well controlled -same meds hld: -cont statin ckd: -baseline creat 1.8-2.2 - continue lasix 60 mg IV BID, monitor Cr -renal following
[2018-05-09 12:04] LABS: ANION GAP 10 MMOL/L (8-16); BLOOD UREA NITROGEN 54 mg/dL (7-18); CALCIUM 8.9 mg/dL (8.5-10.1); CHLORIDE 99 mmol/L (98-107); CO2 28 mmol/L (21-32); CREATININE 2.3 mg/dL (0.55-1.3); GLUCOSE,RANDOM 205 mg/dL (74-106); POTASSIUM 4.1 mmol/L (3.5-5.1); SODIUM 136 mmol/L (136-145)
--- NOTE | 2018-05-09 12:34 | PN ---
Progress Note (short form) - Note Progress Note: RENAL Pt is awake and alert having lunch no specific complaints Last Vital Signs Temp Pulse Resp BP Pulse Ox 98 F 64 18 152/80 98 05/09/18 10:00 05/09/18 10:00 05/09/18 10:00 05/09/18 10:00 05/08/18 21:00 lungs clear cvs s1s2 rr abd soft ext no edema neuro a+ox3 CBC, BMP 05/08/18 05:30 05/09/18 11:22 Current Medications Generic Name Dose Route Start Last Admin Trade Name Freq PRN Reason Stop Dose Admin Acetaminophen 650 mg 04/30/18 16:27 05/09/18 10:16 Tylenol - PO 650 mg Q4H PRN Administration PAIN 1-3 Artificial Tears 1 drop 05/07/18 10:17 05/07/18 21:59 Artificial Tears OU 1 drop QID PRN Administration DRY EYES Aspirin 162 mg 05/01/18 10:00 05/09/18 10:17 Ecotrin - PO 162 mg DAILY [facility] Administration Atorvastatin Calcium 40 mg 04/30/18 22:00 05/08/18 22:37 Lipitor - PO 40 mg HS [facility] Administration Chlorthalidone 25 mg 05/03/18 05:00 05/09/18 05:37 Hygroton - PO 25 mg DAILY@0500 [facility] Administration Finasteride 5 mg 05/01/18 10:00 05/09/18 10:18 Proscar - PO 5 mg DAILY [facility] Administration Furosemide 60 mg 05/03/18 06:00 05/09/18 06:38 Lasix Injection - IVPB 60 mg BID@0600,1400 [facility] Administration Insulin Aspart 1 vial 04/30/18 22:00 05/09/18 12:21 Novolog Vial Sliding Scale - SQ 4 units ACHS [facility] Administration Protocol Potassium Chloride 20 meq 05/04/18 10:00 05/09/18 10:17 K-Dur - PO 20 meq DAILY [facility] Administration Tamsulosin HCl 0.4 mg 05/01/18 08:30 05/09/18 10:17 Flomax - PO 0.4 mg 0830 [facility] Administration Impression 1. CKD 2. CHF 3. DM 4. obesity 5. HTN 6. dyspnea 7. HLD 8. CAD s/p cabg 9. volume overload Plan would reduce lasix if creat continues to rise consider starting low dose manohar inhibitor and observing while in hosp keep chlorthalidone ?beta shaun given diastolic dysf and CAD MV
--- NOTE | 2018-05-09 13:26 | PN ---
Progress Note (short form) - Note Progress Note: patient sitting up in bed noted decreased edema to LE neck supple heart s1/S2 Lung decreased at bases / rales at right base abd soft obese ext + edema bilat right >left CBC, BMP 05/08/18 05:30 05/09/18 11:22 CBC, BMP 05/06/18 06:28 05/06/18 06:28 Active Medications Acetaminophen (Tylenol -) 650 mg PO Q4H PRN PRN Reason: PAIN 1-3 Last Admin: 05/09/18 10:16 Dose: 650 mg Artificial Tears (Artificial Tears) 1 drop OU QID PRN PRN Reason: DRY EYES Last Admin: 05/07/18 21:59 Dose: 1 drop Aspirin (Ecotrin -) 162 mg PO DAILY [facility] Last Admin: 05/09/18 10:17 Dose: 162 mg Atorvastatin Calcium (Lipitor -) 40 mg PO HS [facility] Last Admin: 05/08/18 22:37 Dose: 40 mg Chlorthalidone (Hygroton -) 25 mg PO DAILY@0500 [facility] Last Admin: 05/09/18 05:37 Dose: 25 mg Finasteride (Proscar -) 5 mg PO DAILY [facility] Last Admin: 05/09/18 10:18 Dose: 5 mg Furosemide (Lasix Injection -) 60 mg IVPB BID@0600,1400 [facility] Last Admin: 05/09/18 06:38 Dose: 60 mg Insulin Aspart (Novolog Vial Sliding Scale -) 1 vial SQ ACHS [facility]; Protocol Last Admin: 05/09/18 12:21 Dose: 4 units Potassium Chloride (K-Dur -) 20 meq PO DAILY [facility] Last Admin: 05/09/18 10:17 Dose: 20 meq Tamsulosin HCl (Flomax -) 0.4 mg PO 0830 [facility] Last Admin: 05/09/18 10:17 Dose: 0.4 mg # HF increase in Cr and Co2 will need to decrease diuretics appreciate cardio / renal follow up lower current lasix dosing daily weights trend renal function # CKD trend renal function ( baseline 1.8-2.0) known to nephro # BPH continue home meds # DM statins / asa sliding scale bs ACEi once renal function stable # CAD stable -- CP 2/2 to HF CE neg Problem List - Problems (1) CHF exacerbation Code(s): I50.9 - HEART FAILURE, UNSPECIFIED (2) Acute on chronic diastolic (congestive) heart failure Code(s): I50.33 - ACUTE ON CHRONIC DIASTOLIC (CONGESTIVE) HEART FAILURE (3) BPH associated with nocturia Code(s): N40.1 - BENIGN PROSTATIC HYPERPLASIA WITH LOWER URINARY TRACT SYMP; R35.1 - NOCTURIA (4) CKD (chronic kidney disease) Code(s): N18.9 - CHRONIC KIDNEY DISEASE, UNSPECIFIED (5) Diabetes Code(s): E11.9 - TYPE 2 DIABETES MELLITUS WITHOUT COMPLICATIONS 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 Diabetes mellitus complication detail: with unspecified neuropathy (6) Leg edema Code(s): R60.0 - LOCALIZED EDEMA (7) HTN (hypertension) Code(s): I10 - ESSENTIAL (PRIMARY) HYPERTENSION (8) Hx of CABG Code(s): Z95.1 - PRESENCE OF AORTOCORONARY BYPASS GRAFT (9) Hyperlipidemia Code(s): E78.5 - HYPERLIPIDEMIA, UNSPECIFIED (10) Inflammatory arthritis Code(s): M19.90 - UNSPECIFIED OSTEOARTHRITIS, UNSPECIFIED SITE (11) Morbid obesity Code(s): E66.01 - MORBID (SEVERE) OBESITY DUE TO EXCESS CALORIES (12) Osteoarthritis Code(s): M19.90 - UNSPECIFIED OSTEOARTHRITIS, UNSPECIFIED SITE Qualifiers: Osteoarthritis location: hand Osteoarthritis type: primary Laterality: right Qualified Code(s): M19.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
[2018-05-09] MEDS: ATORVASTATIN CA 40 MG TABLET (FP) PO SCH (21:33)
[2018-05-10] MEDS ORDERED: PT OWN MED DRAWER 7, Y5N ONE (05:33)
[2018-05-10] MEDS: CHLORTHALIDONE 25 MG TABLET PO SCH (05:40)
[2018-05-10] MEDS: INSULIN SLIDING SCALE (NOVOLOG) 1 VIAL SQ SCH ×4 (06:27→21:40)
[2018-05-10] MEDS: FUROSEMIDE 40 MG/4 ML INJECTABLE VIAL IVPB SCH (06:28)
[2018-05-10 08:09] LABS: ANION GAP 9 MMOL/L (8-16); BLOOD UREA NITROGEN 56 mg/dL (7-18); CALCIUM 8.8 mg/dL (8.5-10.1); CHLORIDE 98 mmol/L (98-107); CO2 28 mmol/L (21-32); CREATININE 2.6 mg/dL (0.55-1.3); GLUCOSE,RANDOM 207 mg/dL (74-106); POTASSIUM 4.2 mmol/L (3.5-5.1); SODIUM 136 mmol/L (136-145)
[2018-05-10] MEDS: POTASSIUM CHLORIDE TABS 20 MEQ TABLET.ER (FP) PO SCH ×2 (08:30→09:27)
[2018-05-10] MEDS: ASPIRIN COATED 81 MG TABLET.EC PO SCH ×2 (08:30→09:27)
[2018-05-10] MEDS: TAMSULOSIN HCL 0.4 MG CAP PO SCH (08:30)
[2018-05-10] MEDS: FINASTERIDE 5 MG TABLET (FP) PO SCH ×2 (08:31→09:27)
--- NOTE | 2018-05-10 10:41 | PN ---
Progress Note (short form) - Note Progress Note: Chief Complaint: shortness of breath History of Present Illness: edema and sob improved. no chest pain, palps, dizziness. Current Medications Generic Name Dose Route Start Last Admin Trade Name Dakotah PRN Reason Stop Dose Admin Acetaminophen 650 mg 04/30/18 16:27 05/09/18 21:33 Tylenol - PO 650 mg Q4H PRN Administration PAIN 1-3 Artificial Tears 1 drop 05/07/18 10:17 05/07/18 21:59 Artificial Tears OU 1 drop QID PRN Administration DRY EYES Aspirin 162 mg 05/01/18 10:00 05/10/18 09:27 Ecotrin - PO Not Given DAILY [facility] Atorvastatin Calcium 40 mg 04/30/18 22:00 05/09/18 21:33 Lipitor - PO 40 mg HS [facility] Administration Chlorthalidone 25 mg 05/03/18 05:00 05/10/18 05:40 Hygroton - PO 25 mg DAILY@0500 [facility] Administration Finasteride 5 mg 05/01/18 10:00 05/10/18 09:27 Proscar - PO Not Given DAILY [facility] Furosemide 80 mg 05/11/18 06:00 Lasix - PO BID@0600,1400 [facility] Insulin Aspart 1 vial 04/30/18 22:00 05/10/18 06:27 Novolog Vial Sliding Scale - SQ Not Given ACHS [facility] Protocol Potassium Chloride 20 meq 05/04/18 10:00 05/10/18 09:27 K-Dur - PO Not Given DAILY [facility] Tamsulosin HCl 0.4 mg 05/01/18 08:30 05/10/18 08:30 Flomax - PO 0.4 mg 0830 [facility] Administration Vital Signs Period Temp Pulse Resp BP Sys/Whitehead Pulse Ox Last 24 Hr 97.3 F-98.4 F 58-70 18-20 122-145/44-69 98 Constitutional: Yes: Well Nourished, No Distress, Calm Eyes: Yes: Conjunctiva Clear Neck: Yes: Supple, Trachea Midline Respiratory: cta bl nl eff Gastrointestinal: Yes: Normal Bowel Sounds, Soft Cardiovascular: Yes: Pulse Irregular JVD: no Heart Sounds: Yes: S1, S2 Edema: no edema Peripheral Pulses: 2+ Left Carotid, 2+ Right Carotid, 2+ Left Doralis Pedis, 2+ Right Dorsalis Pedis Integumentary: No: Jaundice diaphoresis Neurological: Yes: Alert, Oriented CBC, BMP 05/08/18 05:30 05/10/18 06:30 Assessment/Plan echo 06/2017: mild dec lvef, nl rv, mild mr, mild-mod tr, rvsp 40-50, mild ar, mild pr ecg 04/30: sinus, mobitz 1, with ventricular bigeminy. RBBB, NSST-Ts--similar to 03/15, 01/13 priors mibi 04/2018: mild nonextensive apical ischemia. anterolateral scar, lvef 43 tele: sinus a/p: 77 m hx cad, mi x2, cabg 2012, pci x2 2016, mobitz I, dchf, copd, dm, htn , hld, ckd here with sob, le edema. acute diastolic chf, atypical CP -here 03/15 with volume overload, treated with lasix 60 iv bid (home dose 80 mg daily vs 40 mg BID at that time) -wts then inaccurate, ranged btw 230-244 lbs in the several days prior to hosp discharge. sent home on lasix 40 bid. -BNP stable, not helpful with low GFR (6K here, from 5K last time) -MAR reviewed: lasix 40 IV once on 04/30, then 40 iv bid, changed to 60 iv bid on 05/03 -CXR shows no improvement in congestive changes +/- ? L effusions vs infiltrate on serial studies -05/04: wt improving, 247 from 255 (standing scale), sob and edema also improving - continue lasix 60 mg IV BID, also received spironolactone today per renal -05/05: weight 247->222 lbs, d/w RN checked multiple times - symptoms improving, however still has JVD, edema. will continue lasix 60 mg IV BID at same dose -05/06-: wt down. edema and sob improving, continue lasix 60 mg IV BID today, can likely change to po tomorrow, was on 40 bid at home, would change to 80 po bid upon dc. -05/10: cr rising, seems euvolemic now. dc iv lasix. start lasix 80 po bid tomorrow. - monitor Cr, daily weights -troponin neg x 2. ECG no ischemic changes -Stress test with low risk findings, continue current medical management of cad. CKD: -creat randy from 1.8 to 2.4 on discharge 03/15 s/p chf with iv diuresis -currently renal fxn is stable (creat 2.0) -renal team following pulm HTN: -likely WHO 2 sec to diast chf -no further w/u indicated at present--reconsider if PH persists on f/u echo as outpt once pt well-diuresed, or RV dilation seen in future cad: -stable, no signs acs -cont asa, statin -Stress test with low risk findings, continue current medical management of cad. abnl ecg, mobitz 1: -chronic finding, stable htn: -well controlled -same meds hld: -cont statin ckd: -baseline creat 1.8-2.2, monitor with diuresis -renal following
--- NOTE | 2018-05-10 12:40 | PN ---
Progress Note (short form) - Note Progress Note: RENAL Pt is awake and alert having lunch no specific complaints Last Vital Signs Temp Pulse Resp BP Pulse Ox 97.3 F L 68 18 127/50 L 98 05/10/18 05:41 05/10/18 05:41 05/10/18 05:41 05/10/18 05:41 05/09/18 21:00 lungs clear cvs s1s2 rr abd soft ext no edema neuro a+ox3 CBC, BMP 05/08/18 05:30 05/10/18 06:30 Current Medications Generic Name Dose Route Start Last Admin Trade Name Freq PRN Reason Stop Dose Admin Acetaminophen 650 mg 04/30/18 16:27 05/09/18 21:33 Tylenol - PO 650 mg Q4H PRN Administration PAIN 1-3 Artificial Tears 1 drop 05/07/18 10:17 05/07/18 21:59 Artificial Tears OU 1 drop QID PRN Administration DRY EYES Aspirin 162 mg 05/01/18 10:00 05/10/18 09:27 Ecotrin - PO Not Given DAILY [facility] Atorvastatin Calcium 40 mg 04/30/18 22:00 05/09/18 21:33 Lipitor - PO 40 mg HS [facility] Administration Chlorthalidone 25 mg 05/03/18 05:00 05/10/18 05:40 Hygroton - PO 25 mg DAILY@0500 [facility] Administration Finasteride 5 mg 05/01/18 10:00 05/10/18 09:27 Proscar - PO Not Given DAILY [facility] Furosemide 80 mg 05/11/18 06:00 Lasix - PO BID@0600,1400 [facility] Insulin Aspart 1 vial 04/30/18 22:00 05/10/18 06:27 Novolog Vial Sliding Scale - SQ Not Given ACHS [facility] Protocol Potassium Chloride 20 meq 05/04/18 10:00 05/10/18 09:27 K-Dur - PO Not Given DAILY [facility] Tamsulosin HCl 0.4 mg 05/01/18 08:30 05/10/18 08:30 Flomax - PO 0.4 mg 0830 [facility] Administration Impression 1. CKD 2. CHF 3. DM 4. obesity 5. HTN 6. dyspnea 7. HLD 8. CAD s/p cabg 9. volume overload Plan would reduce lasix and observe given rise in creat renal sono MV
--- NOTE | 2018-05-10 13:43 | PN ---
Progress Note (short form) - Note Progress Note: patient sitting up in bed noted decreased edema to LE Vital Signs Period Temp Pulse Resp BP Sys/Whitehead Pulse Ox Last 24 Hr 97.3 F-98.4 F 58-70 18-20 122-145/44-69 98 neck supple heart s1/S2 Lung decreased at bases / rales at right base abd soft obese ext + edema bilat right >left CBC, BMP 05/08/18 05:30 05/10/18 06:30 CBC, BMP 05/08/18 05:30 05/09/18 11:22 CBC, BMP 05/06/18 06:28 05/06/18 06:28 Active Medications Acetaminophen (Tylenol -) 650 mg PO Q4H PRN PRN Reason: PAIN 1-3 Last Admin: 05/09/18 21:33 Dose: 650 mg Artificial Tears (Artificial Tears) 1 drop OU QID PRN PRN Reason: DRY EYES Last Admin: 05/07/18 21:59 Dose: 1 drop Aspirin (Ecotrin -) 162 mg PO DAILY [facility] Last Admin: 05/10/18 09:27 Dose: Not Given Atorvastatin Calcium (Lipitor -) 40 mg PO HS [facility] Last Admin: 05/09/18 21:33 Dose: 40 mg Chlorthalidone (Hygroton -) 25 mg PO DAILY@0500 [facility] Last Admin: 05/10/18 05:40 Dose: 25 mg Finasteride (Proscar -) 5 mg PO DAILY [facility] Last Admin: 05/10/18 09:27 Dose: Not Given Furosemide (Lasix -) 80 mg PO BID@0600,1400 [facility] Insulin Aspart (Novolog Vial Sliding Scale -) 1 vial SQ [facility]; Protocol Last Admin: 05/10/18 13:11 Dose: 6 units Potassium Chloride (K-Dur -) 20 meq PO DAILY [facility] Last Admin: 05/10/18 09:27 Dose: Not Given Tamsulosin HCl (Flomax -) 0.4 mg PO 0830 [facility] Last Admin: 05/10/18 08:30 Dose: 0.4 mg # HF increase in Cr and Co2 will need to decrease diuretics / hold today appreciate cardio / renal follow up lower current lasix dosing daily weights trend renal function # CKD trend renal function ( baseline 1.8-2.0) known to nephro # BPH continue home meds # DM statins / asa sliding scale bs ACEi once renal function stable # CAD stable -- CP 2/2 to HF CE neg Problem List - Problems (1) CHF exacerbation Code(s): I50.9 - HEART FAILURE, UNSPECIFIED (2) Acute on chronic diastolic (congestive) heart failure Code(s): I50.33 - ACUTE ON CHRONIC DIASTOLIC (CONGESTIVE) HEART FAILURE (3) BPH associated with nocturia Code(s): N40.1 - BENIGN PROSTATIC HYPERPLASIA WITH LOWER URINARY TRACT SYMP; R35.1 - NOCTURIA (4) CKD (chronic kidney disease) Code(s): N18.9 - CHRONIC KIDNEY DISEASE, UNSPECIFIED (5) Diabetes Code(s): E11.9 - TYPE 2 DIABETES MELLITUS WITHOUT COMPLICATIONS Qualifiers: Diabetes mellitus penitentiary insulin use: with penitentiary use Diabetes mellitus complication detail: with unspecified neuropathy (6) Leg edema Code(s): R60.0 - LOCALIZED EDEMA (7) HTN (hypertension) Code(s): I10 - ESSENTIAL (PRIMARY) HYPERTENSION (8) Hx of CABG Code(s): Z95.1 - PRESENCE OF AORTOCORONARY BYPASS GRAFT (9) Hyperlipidemia Code(s): E78.5 - HYPERLIPIDEMIA, UNSPECIFIED (10) Inflammatory arthritis Code(s): M19.90 - UNSPECIFIED OSTEOARTHRITIS, UNSPECIFIED SITE (11) Morbid obesity Code(s): E66.01 - MORBID (SEVERE) OBESITY DUE TO EXCESS CALORIES (12) Osteoarthritis Code(s): M19.90 - UNSPECIFIED OSTEOARTHRITIS, UNSPECIFIED SITE Qualifiers: Osteoarthritis location: hand Osteoarthritis type: primary Laterality: right Qualified Code(s): M19.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
[2018-05-10] MEDS: ACETAMINOPHEN 325 MG TABLET (FP) PO PRN (21:01)
[2018-05-10] MEDS: ATORVASTATIN CA 40 MG TABLET (FP) PO SCH (21:02)
[2018-05-11] MEDS: CHLORTHALIDONE 25 MG TABLET PO SCH (05:30)
[2018-05-11] MEDS: INSULIN SLIDING SCALE (NOVOLOG) 1 VIAL SQ SCH ×4 (06:24→21:58)
[2018-05-11] MEDS: FUROSEMIDE 40 MG TABLET (FP) PO SCH ×2 (06:25→13:09)
[2018-05-11] MEDS: TAMSULOSIN HCL 0.4 MG CAP PO SCH (09:12)
[2018-05-11] MEDS: POTASSIUM CHLORIDE TABS 20 MEQ TABLET.ER (FP) PO SCH (09:15)
[2018-05-11] MEDS: ASPIRIN COATED 81 MG TABLET.EC PO SCH (09:15)
[2018-05-11] MEDS: FINASTERIDE 5 MG TABLET (FP) PO SCH (09:16)
[2018-05-11] MEDS: ACETAMINOPHEN 325 MG TABLET (FP) PO PRN (09:22)
--- NOTE | 2018-05-11 11:49 | PN ---
Progress Note, Physician Chief Complaint: sob, swelling History of Present Illness: no sob (walking long hallways), no more feet swelling no cp, palpit - Current Medication List Current Medications: Active Medications Acetaminophen (Tylenol -) 650 mg PO Q4H PRN PRN Reason: PAIN 1-3 Last Admin: 05/11/18 09:22 Dose: 650 mg Artificial Tears (Artificial Tears) 1 drop OU QID PRN PRN Reason: DRY EYES Last Admin: 05/07/18 21:59 Dose: 1 drop Aspirin (Ecotrin -) 162 mg PO DAILY [facility] Last Admin: 05/11/18 09:15 Dose: 162 mg Atorvastatin Calcium (Lipitor -) 40 mg PO HS [facility] Last Admin: 05/10/18 21:02 Dose: 40 mg Chlorthalidone (Hygroton -) 25 mg PO DAILY@0500 [facility] Last Admin: 05/11/18 05:30 Dose: 25 mg Finasteride (Proscar -) 5 mg PO DAILY [facility] Last Admin: 05/11/18 09:16 Dose: 5 mg Furosemide (Lasix -) 80 mg PO BID@0600,1400 [facility] Last Admin: 05/11/18 06:25 Dose: 80 mg Insulin Aspart (Novolog Vial Sliding Scale -) 1 vial SQ ACHS [facility]; Protocol Last Admin: 05/11/18 06:24 Dose: 4 units Potassium Chloride (K-Dur -) 20 meq PO DAILY [facility] Last Admin: 05/11/18 09:15 Dose: 20 meq Tamsulosin HCl (Flomax -) 0.4 mg PO 0830 [facility] Last Admin: 05/11/18 09:12 Dose: 0.4 mg - Objective Vital Signs: Vital Signs Temperature 98.3 F 05/11/18 09:00 Pulse Rate 59 L 05/11/18 09:00 Respiratory Rate 18 05/11/18 09:00 Blood Pressure 128/55 L 05/11/18 09:00 O2 Sat by Pulse Oximetry (%) 98 05/11/18 09:00 Constitutional: Yes: Well Nourished, No Distress, Calm Cardiovascular: Yes: Regular Rate and Rhythm, S1, S2. No: Gallop, Murmur Respiratory: Yes: Regular, CTA Bilaterally. No: Accessory Muscle Use, Rales, Wheezes Extremities: No: Cold Edema: No Neurological: Yes: Alert, Oriented Psychiatric: No: Agitated Labs: CBC, BMP 05/08/18 05:30 05/10/18 06:30 Assessment/Plan echo 06/2017: mild dec lvef, nl rv, mild mr, mild-mod tr, rvsp 40-50, mild ar, mild pr ecg 04/30: sinus, mobitz 1, with ventricular bigeminy. RBBB, NSST-Ts--similar to 03/15, 01/13 priors mibi 04/2018: mild nonextensive apical ischemia. anterolateral scar, lvef 43 tele: NSR, PVCs a/p: 77 m hx cad, mi x2, cabg 2012, pci x2 2016, mobitz I, dchf, copd, dm, htn , hld, ckd here with sob, le edema. acute diastolic chf, atypical CP -here 03/15 with volume overload, treated with lasix 60 iv bid (home dose 80 mg daily vs ? 40 mg BID at that time) -wts then inaccurate, ranged btw 230-244 lbs in the several days prior to hosp discharge. sent home on lasix 40 bid. -BNP stable, not helpful with low GFR (6K here, from 5K last time) -MAR reviewed: lasix 40 IV once on 04/30, then 40 iv bid, changed to 60 iv bid on 05/03 -CXR shows no improvement in congestive changes +/- ? L effusions vs infiltrate on serial studies -05/04: wt improving, 247 from 255 (standing scale), sob and edema also improving - continue lasix 60 mg IV BID, also received spironolactone today per renal -05/05: weight 247->222 lbs, d/w RN checked multiple times - symptoms improving, however still has JVD, edema. will continue lasix 60 mg IV BID at same dose -05/06-: wt down. edema and sob improving, continue lasix 60 mg IV BID today, can likely change to po tomorrow, was on 40 bid at home, would change to 80 po bid upon dc. -05/11: wt stable (229). bun/creat both rising. would hold diuretics for now. monitor renal fxn as outpatient over next 3-5 days. once creat begins trending down would resume PO lasix at slightly higher dose than prior home regimen (if was on 60 bid at home, incr to 80) - monitor Cr, daily weights -troponin neg x 2. ECG no ischemic changes -Stress test with low risk findings, continue current medical management of cad. CKD: -creat randy from 1.8 to 2.4 on discharge 03/15 s/p chf with iv diuresis -creat randy here again due to slight overdiuresis -renal team following -rec as above pulm HTN: -likely WHO 2 sec to diast chf -no further w/u indicated at present--reconsider if PH persists on f/u echo as outpt once pt well-diuresed, or RV dilation seen in future cad: -stable, no signs acs -cont asa, statin -Stress test with low risk findings, continue current medical management of cad. abnl ecg, mobitz 1: -chronic finding, stable htn: -well controlled -same meds hld: -cont statin OK FOR D/C CARDIAC WEATHERS D/C TELEMETRY
--- NOTE | 2018-05-11 15:48 | PN ---
Progress Note, Physician History of Present Illness: Pt seen and examined at bedside. He is awake and alert. He denies shortness of breath. He feels that his lower ext edema is improving. - Current Medication List Current Medications: Active Medications Acetaminophen (Tylenol -) 650 mg PO Q4H PRN PRN Reason: PAIN 1-3 Last Admin: 05/11/18 09:22 Dose: 650 mg Artificial Tears (Artificial Tears) 1 drop OU QID PRN PRN Reason: DRY EYES Last Admin: 05/07/18 21:59 Dose: 1 drop Aspirin (Ecotrin -) 162 mg PO DAILY [facility] Last Admin: 05/11/18 09:15 Dose: 162 mg Atorvastatin Calcium (Lipitor -) 40 mg PO HS [facility] Last Admin: 05/10/18 21:02 Dose: 40 mg Chlorthalidone (Hygroton -) 25 mg PO DAILY@0500 [facility] Last Admin: 05/11/18 05:30 Dose: 25 mg Finasteride (Proscar -) 5 mg PO DAILY [facility] Last Admin: 05/11/18 09:16 Dose: 5 mg Furosemide (Lasix -) 80 mg PO BID@0600,1400 [facility] Last Admin: 05/11/18 13:09 Dose: 80 mg Insulin Aspart (Novolog Vial Sliding Scale -) 1 vial SQ ACHS [facility]; Protocol Last Admin: 05/11/18 12:00 Dose: 6 units Potassium Chloride (K-Dur -) 20 meq PO DAILY [facility] Last Admin: 05/11/18 09:15 Dose: 20 meq Tamsulosin HCl (Flomax -) 0.4 mg PO 0830 [facility] Last Admin: 05/11/18 09:12 Dose: 0.4 mg - Objective Vital Signs: Vital Signs Temperature 97.8 F 05/11/18 14:36 Pulse Rate 59 L 05/11/18 14:36 Respiratory Rate 18 05/11/18 14:36 Blood Pressure 154/56 L 05/11/18 14:36 O2 Sat by Pulse Oximetry (%) 98 05/11/18 09:00 Constitutional: Yes: Calm Eyes: Yes: Conjunctiva Clear HENT: Yes: Atraumatic Cardiovascular: Yes: S1, S2 Respiratory: Yes: CTA Bilaterally Gastrointestinal: Yes: Soft, Abdomen, Obese Genitourinary: Yes: WNL Edema: Yes Edema: LLE: Trace, RLE: Trace Neurological: Yes: Oriented Psychiatric: Yes: Oriented Labs: CBC, BMP 05/08/18 05:30 05/10/18 06:30 Assessment/Plan Current Medications Generic Name Dose Route Start Last Admin Trade Name [place] PRN Reason Stop Dose Admin Acetaminophen 650 mg 04/30/18 16:27 05/11/18 09:22 Tylenol - PO 650 mg Q4H PRN Administration PAIN 1-3 Artificial Tears 1 drop 05/07/18 10:17 05/07/18 21:59 Artificial Tears OU 1 drop QID PRN Administration DRY EYES Aspirin 162 mg 05/01/18 10:00 05/11/18 09:15 Ecotrin - PO 162 mg DAILY [facility] Administration Atorvastatin Calcium 40 mg 04/30/18 22:00 05/10/18 21:02 Lipitor - PO 40 mg HS [facility] Administration Chlorthalidone 25 mg 05/03/18 05:00 05/11/18 05:30 Hygroton - PO 25 mg DAILY@0500 [facility] Administration Finasteride 5 mg 05/01/18 10:00 05/11/18 09:16 Proscar - PO 5 mg DAILY [facility] Administration Furosemide 80 mg 05/11/18 06:00 05/11/18 13:09 Lasix - PO 80 mg BID@0600,1400 [facility] Administration Insulin Aspart 1 vial 04/30/18 22:00 05/11/18 12:00 Novolog Vial Sliding Scale - SQ 6 units ACHS [facility] Administration Protocol Potassium Chloride 20 meq 05/04/18 10:00 05/11/18 09:15 K-Dur - PO 20 meq DAILY [facility] Administration Tamsulosin HCl 0.4 mg 05/01/18 08:30 05/11/18 09:12 Flomax - PO 0.4 mg 0830 [facility] Administration Impression 1. CKD 2. CHF 3. DM 4. obesity 5. HTN 6. dyspnea 7. HLD 8. CAD s/p cabg 9. volume overload Plan - renal function worsened - check bmp - will hold off further aldactone - volume status is improved - hold diuretics of renal function worsens - will need ckd workup - will follow
[2018-05-11] MEDS: ATORVASTATIN CA 40 MG TABLET (FP) PO SCH (21:52)
--- NOTE | 2018-05-11 22:47 | PN ---
Progress Note (short form) - Note Progress Note: ambulating in hallway less lower extremity edema Vital Signs Period Temp Pulse Resp BP Sys/Whitehead Pulse Ox Last 24 Hr 97.6 F-98.8 F 59-663 16-20 128-140/63-84 94-96 neck supple heart s1/S2 Lung decreased at bases / grossly clear abd soft obese ext + edema bilat CBC, BMP 05/08/18 05:30 05/10/18 06:30 CBC, BMP 05/05/18 05:30 05/05/18 05:30 Active Medications Acetaminophen (Tylenol -) 650 mg PO Q4H PRN PRN Reason: PAIN 1-3 Last Admin: 05/11/18 09:22 Dose: 650 mg Artificial Tears (Artificial Tears) 1 drop OU QID PRN PRN Reason: DRY EYES Last Admin: 05/07/18 21:59 Dose: 1 drop Aspirin (Ecotrin -) 162 mg PO DAILY [facility] Last Admin: 05/11/18 09:15 Dose: 162 mg Atorvastatin Calcium (Lipitor -) 40 mg PO HS [facility] Last Admin: 05/11/18 21:52 Dose: 40 mg Chlorthalidone (Hygroton -) 25 mg PO DAILY@0500 [facility] Last Admin: 05/11/18 05:30 Dose: 25 mg Finasteride (Proscar -) 5 mg PO DAILY [facility] Last Admin: 05/11/18 09:16 Dose: 5 mg Furosemide (Lasix -) 80 mg PO BID@0600,1400 [facility] Last Admin: 05/11/18 13:09 Dose: 80 mg Insulin Aspart (Novolog Vial Sliding Scale -) 1 vial SQ [facility]; Protocol Last Admin: 05/11/18 21:58 Dose: 4 units Potassium Chloride (K-Dur -) 20 meq PO DAILY [facility] Last Admin: 05/11/18 09:15 Dose: 20 meq Tamsulosin HCl (Flomax -) 0.4 mg PO 0830 [facility] Last Admin: 05/11/18 09:12 Dose: 0.4 mg # HF appreciate cardio / renal follow up increasing Cr lasix on hold daily weights # CKD discussed with renal will need out patient w/u Will follow up with nephro # BPH continue home meds # DM statins / asa sliding scale bs # CAD stable -- CP 2/2 to HF CE neg Problem List - Problems (1) CHF exacerbation Code(s): I50.9 - HEART FAILURE, UNSPECIFIED (2) Acute on chronic diastolic (congestive) heart failure Code(s): I50.33 - ACUTE ON CHRONIC DIASTOLIC (CONGESTIVE) HEART FAILURE (3) BPH associated with nocturia Code(s): N40.1 - BENIGN PROSTATIC HYPERPLASIA WITH LOWER URINARY TRACT SYMP; R35.1 - NOCTURIA (4) CKD (chronic kidney disease) Code(s): N18.9 - CHRONIC KIDNEY DISEASE, UNSPECIFIED (5) Diabetes Code(s): E11.9 - TYPE 2 DIABETES MELLITUS WITHOUT COMPLICATIONS Qualifiers: Diabetes mellitus skilled nursing insulin use: with terminal manager use Diabetes mellitus complication detail: with unspecified neuropathy (6) Leg edema Code(s): R60.0 - LOCALIZED EDEMA (7) HTN (hypertension) Code(s): I10 - ESSENTIAL (PRIMARY) HYPERTENSION (8) Hx of CABG Code(s): Z95.1 - PRESENCE OF AORTOCORONARY BYPASS GRAFT (9) Hyperlipidemia Code(s): E78.5 - HYPERLIPIDEMIA, UNSPECIFIED (10) Inflammatory arthritis Code(s): M19.90 - UNSPECIFIED OSTEOARTHRITIS, UNSPECIFIED SITE (11) Morbid obesity Code(s): E66.01 - MORBID (SEVERE) OBESITY DUE TO EXCESS CALORIES (12) Osteoarthritis Code(s): M19.90 - UNSPECIFIED OSTEOARTHRITIS, UNSPECIFIED SITE Qualifiers: Osteoarthritis location: hand Osteoarthritis type: primary Laterality: right Qualified Code(s): M19.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
[2018-05-12] MEDS: ACETAMINOPHEN 325 MG TABLET (FP) PO PRN (01:13)
[2018-05-12] MEDS: CHLORTHALIDONE 25 MG TABLET PO SCH (05:08)
[2018-05-12] MEDS: FUROSEMIDE 40 MG TABLET (FP) PO SCH ×2 (06:24→13:13)
[2018-05-12] MEDS: INSULIN SLIDING SCALE (NOVOLOG) 1 VIAL SQ SCH ×3 (06:31→17:50)
[2018-05-12 08:15] LABS: ALBUMIN 3.2 g/dl (3.4-5.0); ALK PHOS 114 U/L (45-117); ANION GAP 8 MMOL/L (8-16); BILIRUBIN,TOTAL 0.8 mg/dL (0.2-1); BLOOD UREA NITROGEN 59 mg/dL (7-18); CALCIUM 8.8 mg/dL (8.5-10.1); CHLORIDE 97 mmol/L (98-107); CO2 27 mmol/L (21-32); CREATININE 2.4 mg/dL (0.55-1.3); GLUCOSE,RANDOM 289 mg/dL (74-106); POTASSIUM 4.3 mmol/L (3.5-5.1); SGOT/AST 12 U/L (15-37); SGPT/ALT 12 U/L (13-61); SODIUM 132 mmol/L (136-145); TOT PROT 7.2 g/dl (6.4-8.2)
[2018-05-12] MEDS: TAMSULOSIN HCL 0.4 MG CAP PO SCH (09:27)
[2018-05-12] MEDS: POTASSIUM CHLORIDE TABS 20 MEQ TABLET.ER (FP) PO SCH (09:28)
[2018-05-12] MEDS: ASPIRIN COATED 81 MG TABLET.EC PO SCH (09:28)
[2018-05-12] MEDS: FINASTERIDE 5 MG TABLET (FP) PO SCH (09:28)
--- NOTE | 2018-05-12 09:40 | PN ---
Progress Note (short form) - Note Progress Note: Progress Note, Physician Chief Complaint: sob, swelling History of Present Illness: no cp, sob, palps, edema. Current Medications Acetaminophen (Tylenol -) 650 mg PO Q4H PRN PRN Reason: PAIN 1-3 Last Admin: 05/12/18 01:13 Dose: 650 mg Artificial Tears (Artificial Tears) 1 drop OU QID PRN PRN Reason: DRY EYES Last Admin: 05/07/18 21:59 Dose: 1 drop Aspirin (Ecotrin -) 162 mg PO DAILY [facility] Last Admin: 05/12/18 09:28 Dose: 162 mg Atorvastatin Calcium (Lipitor -) 40 mg PO HS [facility] Last Admin: 05/11/18 21:52 Dose: 40 mg Chlorthalidone (Hygroton -) 25 mg PO DAILY@0500 [facility] Last Admin: 05/12/18 05:08 Dose: 25 mg Finasteride (Proscar -) 5 mg PO DAILY [facility] Last Admin: 05/12/18 09:28 Dose: 5 mg Furosemide (Lasix -) 80 mg PO BID@0600,1400 [facility] Last Admin: 05/12/18 06:24 Dose: 80 mg Insulin Aspart (Novolog Vial Sliding Scale -) 1 vial SQ ACHS [facility]; Protocol Last Admin: 05/12/18 06:31 Dose: 4 units Potassium Chloride (K-Dur -) 20 meq PO DAILY [facility] Last Admin: 05/12/18 09:28 Dose: 20 meq Tamsulosin HCl (Flomax -) 0.4 mg PO 0830 [facility] Last Admin: 05/12/18 09:27 Dose: 0.4 mg - Objective Vital Signs: Vital Signs Period Temp Pulse Resp BP Sys/Whitehead Pulse Ox Last 24 Hr 97 F-98.5 F 56-71 18-20 112-154/45-75 95 Constitutional: Yes: Well Nourished, No Distress, Calm Cardiovascular: Yes: Regular Rate and Rhythm, S1, S2. No: Gallop, Murmur Respiratory: Yes: Regular, CTA Bilaterally. No: Accessory Muscle Use, Rales, Wheezes Extremities: No: Cold Edema: No Neurological: Yes: Alert, Oriented Psychiatric: No: Agitated Assessment/Plan echo 06/2017: mild dec lvef, nl rv, mild mr, mild-mod tr, rvsp 40-50, mild ar, mild pr ecg 04/30: sinus, mobitz 1, with ventricular bigeminy. RBBB, NSST-Ts--similar to 03/15, 01/13 priors mibi 04/2018: mild nonextensive apical ischemia. anterolateral scar, lvef 43 tele: NSR, PVCs a/p: 77 m hx cad, mi x2, cabg 2012, pci x2 2017, mobitz I, dchf, copd, dm, htn , hld, ckd here with sob, le edema. acute diastolic chf, atypical CP -here 03/15 with volume overload, treated with lasix 60 iv bid (home dose 80 mg daily vs ? 40 mg BID at that time) -wts then inaccurate, ranged btw 230-244 lbs in the several days prior to hosp discharge. sent home on lasix 40 bid. -BNP stable, not helpful with low GFR (6K here, from 5K last time) -MAR reviewed: lasix 40 IV once on 04/30, then 40 iv bid, changed to 60 iv bid on 05/03 -CXR shows no improvement in congestive changes +/- ? L effusions vs infiltrate on serial studies -05/04: wt improving, 247 from 255 (standing scale), sob and edema also improving - continue lasix 60 mg IV BID, also received spironolactone today per renal -05/05: weight 247->222 lbs, d/w RN checked multiple times - symptoms improving, however still has JVD, edema. will continue lasix 60 mg IV BID at same dose -05/06-: wt down. edema and sob improving, continue lasix 60 mg IV BID today, can likely change to po tomorrow, was on 40 bid at home, would change to 80 po bid upon dc. -05/11: wt stable (229). bun/creat both rising. would hold diuretics for now - 05/12 wt stable, BUN/Cr improving. now on lasix PO 80 mg BID, continue, follow up for labs over next 3-5 days to monitor Cr - monitor Cr, daily weights -troponin neg x 2. ECG no ischemic changes -Stress test with low risk findings, continue current medical management of cad. CKD: -creat randy from 1.8 to 2.4 on discharge 03/15 s/p chf with iv diuresis -creat randy here again due to slight overdiuresis -renal team following -rec as above pulm HTN: -likely WHO 2 sec to diast chf -no further w/u indicated at present--reconsider if PH persists on f/u echo as outpt once pt well-diuresed, or RV dilation seen in future cad: -stable, no signs acs -cont asa, statin -Stress test with low risk findings, continue current medical management of cad. abnl ecg, mobitz 1: -chronic finding, stable htn: -well controlled -same meds hld: -cont statin OK FOR D/C CARDIAC WEATHERS
--- NOTE | 2018-05-12 11:40 | DS ---
Physical Examination Vital Signs: Vital Signs Temperature 98.5 F 05/12/18 05:00 Pulse Rate 65 05/12/18 05:00 Respiratory Rate 20 05/12/18 05:00 Blood Pressure 112/45 L 05/12/18 05:00 O2 Sat by Pulse Oximetry (%) 95 05/11/18 21:00 Findings/Remarks: 77yo M with PMH of diastolic CHF, CAD s/p PCI x 2, HTN, HLD, CKD, BPH, COPD, Asthma presenting with shortness of breath and chest pain x 2 weeks. Patient reports that his chest pain is rate 8/10 and described as stabbing. The pain does not radiate. Patient denies nausea, vomiting, or diaphoresis. He endorses dyspnea on exertion, feeling short of breath by walking across the room. Patient endorses a cough productive of yellowish phlegm x 1 day. He also reports anxiety regarding his chronic illness, but denies SI/HI. No fevers, chills, abdominal pain, or urinary symptoms. patient admitted treated with IV lasix and monito # HF appreciate cardio / renal follow up Cr normalizing lasix PO at increased dose daily weights at home # CKD discussed with renal will need out patient w/u Will follow up with nephro # BPH continue home meds # DM statins / asa sliding scale bs # CAD stable -- CP 2/2 to HF CE neg medication adjusted and will increase lasix for home discharge Constitutional: Yes: Well Nourished, No Distress, Calm Eyes: Yes: Conjunctiva Clear, EOM Intact HENT: Yes: Atraumatic, Normocephalic Neck: Yes: Supple, Trachea Midline Cardiovascular: Yes: Regular Rate and Rhythm Respiratory: Yes: Regular, CTA Bilaterally Gastrointestinal: Yes: WNL, Normal Bowel Sounds ...Rectal Exam: Yes: Deferred Renal/: Yes: WNL Breast(s): Yes: WNL Musculoskeletal: Yes: WNL Extremities: Yes: WNL Edema: No Peripheral Pulses WNL: Yes Integumentary: Yes: WNL Neurological: Yes: WNL, Alert, Oriented ...Motor Strength: WNL Psychiatric: Yes: Alert, Oriented Labs: CBC, BMP 05/08/18 05:30 05/12/18 06:45 Discharge Summary Reason For Visit: ACUTE ON CHRONIC CONGESTIVE HEART FAILURE Current Active Problems CHF exacerbation (Acute) Condition: Improved - Instructions Disposition: HOME - Home Medications Comprehensive Discharge Medication List: Ambulatory Orders Insulin Aspart [Novolog] 15 unit SQ ASDIR 07/16/17 Insulin Degludec [Tresiba Flextouch U-100] 70 unit SQ DAILY 07/16/17 Aspirin [Ecotrin] 162 mg PO DAILY #60 tablet. 01/06/18 Atorvastatin Ca [Lipitor] 40 mg PO HS #30 tablet 01/06/18 Tamsulosin HCl [Flomax] 0.4 mg PO DAILY #30 capsule 01/06/18 Acetaminophen [Tylenol .Regular Strength -] 650 mg PO Q4H PRN tablet 03/23/18 Finasteride [Proscar -] 5 mg PO DAILY tablet 03/23/18 Furosemide [Lasix -] 80 mg PO BID tablet 03/23/18 Insulin Sliding Scale [Novolog Vial Sliding Scale -] 1 vial SQ ACHS units 03/23 chlorthalidone 25 mg q day Kdur 20 meq daily
--- NOTE | 2018-05-12 12:47 | PN ---
Progress Note, Physician History of Present Illness: Pt seen and examined at bedside. He is awake and alert. He denies shortness of breath. - Current Medication List Current Medications: Active Medications Acetaminophen (Tylenol -) 650 mg PO Q4H PRN PRN Reason: PAIN 1-3 Last Admin: 05/12/18 01:13 Dose: 650 mg Artificial Tears (Artificial Tears) 1 drop OU QID PRN PRN Reason: DRY EYES Last Admin: 05/07/18 21:59 Dose: 1 drop Aspirin (Ecotrin -) 162 mg PO DAILY [facility] Last Admin: 05/12/18 09:28 Dose: 162 mg Atorvastatin Calcium (Lipitor -) 40 mg PO HS [facility] Last Admin: 05/11/18 21:52 Dose: 40 mg Chlorthalidone (Hygroton -) 25 mg PO DAILY@0500 [facility] Last Admin: 05/12/18 05:08 Dose: 25 mg Finasteride (Proscar -) 5 mg PO DAILY [facility] Last Admin: 05/12/18 09:28 Dose: 5 mg Furosemide (Lasix -) 80 mg PO BID@0600,1400 [facility] Last Admin: 05/12/18 06:24 Dose: 80 mg Insulin Aspart (Novolog Vial Sliding Scale -) 1 vial SQ ACHS [facility]; Protocol Last Admin: 05/12/18 06:31 Dose: 4 units Potassium Chloride (K-Dur -) 20 meq PO DAILY [facility] Last Admin: 05/12/18 09:28 Dose: 20 meq Tamsulosin HCl (Flomax -) 0.4 mg PO 0830 [facility] Last Admin: 05/12/18 09:27 Dose: 0.4 mg - Objective Vital Signs: Vital Signs Temperature 98.5 F 05/12/18 05:00 Pulse Rate 65 05/12/18 05:00 Respiratory Rate 20 05/12/18 05:00 Blood Pressure 112/45 L 05/12/18 05:00 O2 Sat by Pulse Oximetry (%) 95 05/11/18 21:00 Constitutional: Yes: Calm Eyes: Yes: Conjunctiva Clear HENT: Yes: Atraumatic Cardiovascular: Yes: S1, S2 Respiratory: Yes: CTA Bilaterally Gastrointestinal: Yes: Soft Genitourinary: Yes: WNL Musculoskeletal: Yes: WNL Edema: Yes Edema: LLE: 1+, RLE: 1+ Neurological: Yes: Oriented Psychiatric: Yes: Oriented Labs: CBC, BMP 05/08/18 05:30 05/12/18 06:45 Assessment/Plan Current Medications Generic Name Dose Route Start Last Admin Trade Name [place] PRN Reason Stop Dose Admin Acetaminophen 650 mg 04/30/18 16:27 05/12/18 01:13 Tylenol - PO 650 mg Q4H PRN Administration PAIN 1-3 Artificial Tears 1 drop 05/07/18 10:17 05/07/18 21:59 Artificial Tears OU 1 drop QID PRN Administration DRY EYES Aspirin 162 mg 05/01/18 10:00 05/12/18 09:28 Ecotrin - PO 162 mg DAILY [facility] Administration Atorvastatin Calcium 40 mg 04/30/18 22:00 05/11/18 21:52 Lipitor - PO 40 mg HS [facility] Administration Chlorthalidone 25 mg 05/03/18 05:00 05/12/18 05:08 Hygroton - PO 25 mg DAILY@0500 [facility] Administration Finasteride 5 mg 05/01/18 10:00 05/12/18 09:28 Proscar - PO 5 mg DAILY [facility] Administration Furosemide 80 mg 05/11/18 06:00 05/12/18 06:24 Lasix - PO 80 mg BID@0600,1400 [facility] Administration Insulin Aspart 1 vial 04/30/18 22:00 05/12/18 06:31 Novolog Vial Sliding Scale - SQ 4 units ACHS [facility] Administration Protocol Potassium Chloride 20 meq 05/04/18 10:00 05/12/18 09:28 K-Dur - PO 20 meq DAILY [facility] Administration Tamsulosin HCl 0.4 mg 05/01/18 08:30 05/12/18 09:27 Flomax - PO 0.4 mg 0830 [facility] Administration Impression 1. CKD 2. CHF 3. DM 4. obesity 5. HTN 6. dyspnea 7. HLD 8. CAD s/p cabg 9. volume overload Plan - cont to monitor renal function - cont diuretics - will need outpt follow up - discussed plan with pt - discussed diet with pt - will follow
[2018-05-12 16:00] VITALS: BP 128/66; PULSE 58; TEMP 98.2
--- NOTE | 2018-06-13 13:19 | EKG ---
Test Reason : Blood Pressure : / mmHG Vent. Rate : 058 BPM Atrial Rate : 046 BPM P-R Int : 000 ms QRS Dur : 142 ms QT Int : 496 ms P-R-T Axes : 004 -32 074 degrees QTc Int : 486 ms Suspect underlying sinus bradycardia WITH 2ND DEGREE A-V BLOCK (MOBITZ I) Ventricular and junctional escape complexes Nonconducted APCs LEFT AXIS DEVIATION RIGHT BUNDLE BRANCH BLOCK INFERIOR INFARCT , AGE UNDETERMINED ABNORMAL ECG Confirmed by ROD DICKSON MD ([id number]) on 06/13/2018 1:19:26 PM Referred By: Confirmed By:ROD DICKSON MD
== END 2018-05-12 18:24 | disposition home or self-care (01) | DRG 291 ==
LOC: JER 10:35 → JERBED 14:02 → J4W 22:14
PROVIDERS: ADMIT Family Medicine; ATTEND Family Medicine
DX: I13.0 Hypertensive heart and chronic kidney disease with heart failure and stage 1 through stage 4 chronic kidney disease, or unspecified chronic kidney disease (principal); I50.33 Acute on chronic diastolic (congestive) heart failure; Z68.41 Body mass index [BMI] 40.0-44.9, adult; J98.11 Atelectasis; N18.9 Chronic kidney disease, unspecified; E66.01 Morbid (severe) obesity due to excess calories; I25.10 Atherosclerotic heart disease of native coronary artery without angina pectoris; Z98.61 Coronary angioplasty status; E78.5 Hyperlipidemia, unspecified; N40.0 Benign prostatic hyperplasia without lower urinary tract symptoms; I27.20 Pulmonary hypertension, unspecified; Z68.36 Body mass index [BMI] 36.0-36.9, adult; E87.70 Fluid overload, unspecified; E11.22 Type 2 diabetes mellitus with diabetic chronic kidney disease; R07.89 Other chest pain; I45.10 Unspecified right bundle-branch block; Z95.1 Presence of aortocoronary bypass graft
CPT/HCPCS: 36415; 71045-TC-FY; 78452-TC; 80048; 80053; 81003; 81015; 82962; 83735; 83880; 84484; 85025; 85027; 93005; 93010; 93017; 97116-GP; 97162-GP; 99284-25; A9502; J2785

== ENCOUNTER 2018-12-30 09:23 | Inpatient (IN) | payer OTHER ==
--- NOTE | 2018-12-30 10:49 | EKG ---
Test Reason : Blood Pressure : / mmHG Vent. Rate : 068 BPM Atrial Rate : 097 BPM P-R Int : 000 ms QRS Dur : 138 ms QT Int : 446 ms P-R-T Axes : 052 -33 064 degrees QTc Int : 474 ms SINUS RHYTHM WITH A-V DISSOCIATION AND WIDE QRS RHYTHM WITH OCCASIONAL and consecutive PREMATURE VENTRICULAR COMPLEXES LEFT AXIS DEVIATION RIGHT BUNDLE BRANCH BLOCK INFERIOR INFARCT , AGE UNDETERMINED TDS motion artifacts ABNORMAL ECG Confirmed by ANNIE LARSON, [place] ([id number]) on 12/30/2018 10:49:16 AM Referred By: Confirmed By:[place] VALENCIA MD
--- NOTE | 2018-12-30 11:27 | PDOC ---
Documentation entered by Ortiz Merritt SCRIBE, acting as scribe for Kendy Michael MD. Kendy Michael MD: This documentation has been prepared by the René buenrostro Daniel, SCRIBE, under my direction and personally reviewed by me in its entirety. I confirm that the documentation accurately reflects all work, treatment, procedures, and medical decision making performed by me. History of Present Illness - General Chief Complaint: Shortness of Breath Stated Complaint: SOB Time Seen by Provider: 12/30/18 10:03 History Source: Patient Exam Limitations: No Limitations - History of Present Illness Initial Comments: 12/30/18 11:03 The patient is a 78 year old male with a past medical history of COPD, diabetes , GERD, NC (s/p stents x2, CABG), HTN, and HLD here today for evaluation of shortness of breath. The patient reports that his shortness of breath began 4 nights ago and states that it is worse with exertion. He states he is able to walk to the doorway only before he feels SOB. He also notes bilateral lower extremity edema which began 2 weeks ago. Has been compliant with his lasix 40mg BID. Patient denies headache, lightheadedness, focal weakenss/numbness. Denies fever , chills. Denies chest pain. Denies nausea, vomiting, diarrhea, abdominal pain. Allergies: NKA Surgical history: Cardiac bypass 2012, b/l TKR PCP: Diamante Alvarado Call Worker: Kanu Mckeon Past History - Past Medical History Allergies/Adverse Reactions: Allergies Allergy/AdvReac Type Severity Reaction Status Date / Time No Known Allergies Allergy Verified 12/30/18 09:33 Home Medications: Ambulatory Orders Insulin Aspart [Novolog] 15 unit SQ ASDIR 07/16/17 Insulin Degludec [Tresiba Flextouch U-100] 70 unit SQ DAILY 07/16/17 Aspirin [Ecotrin] 162 mg PO DAILY #60 tablet. 01/06/18 Atorvastatin Ca [Lipitor] 40 mg PO HS #30 tablet 01/06/18 Acetaminophen [Tylenol .Regular Strength -] 650 mg PO Q4H PRN tablet 03/23/18 Insulin Sliding Scale [Novolog Vial Sliding Scale -] 1 vial SQ ACHS units 03/23 Polyvinyl Alcohol [Artificial Tears] 1 drop OU QID PRN drops 05/12/18 Potassium Chloride [K-Dur -] 20 meq PO DAILY 30 Days #30 tablet.er 05/12/18 Colchicine [Colcrys] 0.6 mg PO DAILY 12/30/18 Furosemide [Lasix -] 40 mg PO BID@0600,1300 12/30/18 Gabapentin [Neurontin -] 100 mg PO BID 12/30/18 Omeprazole 40 mg PO DAILY 12/30/18 Spironolactone [Aldactone] 25 mg PO DAILY 12/30/18 Tamsulosin HCl [Flomax] 0.4 mg PO BID 12/30/18 Cardiac Disorders: Yes (NC X 2, stents, CABG) COPD: Yes Diabetes: Yes GI Disorders: Yes (GERD) HTN: Yes Hypercholesterolemia: Yes - Surgical History Cardiac Surgery: Yes (CATH,cardiac bypass in ) Orthopedic Surgery: Yes (2 KNEE REPLACEMENTS) - Immunization History Immunization Up to Date: No - Suicide/Smoking/Psychosocial Hx Smoking Status: No Smoking History: Never smoked Have you smoked in the past 12 months: No Number of Cigarettes Smoked Daily: 0 If you are a former smoker, when did you quit?: 30 years ago Hx Alcohol Use: No Drug/Substance Use Hx: No Substance Use Type: None Hx Substance Use Treatment: No Review of Systems - Review of Systems Able to Perform ROS?: Yes Comments:: 12/30/18 11:04 GENERAL/CONSTITUTIONAL: No fever or chills. No weakness. HEAD, EYES, EARS, NOSE AND THROAT: No change in vision. No ear pain or discharge. No sore throat. GASTROINTESTINAL: No nausea, vomiting, diarrhea or constipation. GENITOURINARY: No dysuria, frequency, or change in urination. CARDIOVASCULAR: No chest pain or shortness of breath. RESPIRATORY: +dyspnea, dyspnea on exertion. No cough, wheezing, or hemoptysis. MUSCULOSKELETAL: +right leg pain. +b/l lower extremity edema. No neck or back pain. SKIN: +rash on b/l forearms NEUROLOGIC: No headache, vertigo, loss of consciousness, or change in strength/ sensation. ENDOCRINE: No increased thirst. No abnormal weight change. HEMATOLOGIC/LYMPHATIC: No anemia, easy bleeding, or history of blood clots. ALLERGIC/IMMUNOLOGIC: No hives or skin allergy. *Physical Exam - Vital Signs Last Vital Signs Temp Pulse Resp BP Pulse Ox 98.2 F 56 L 18 161/68 95 12/30/18 09:31 12/30/18 09:31 12/30/18 09:31 12/30/18 09:31 12/30/18 09:31 - Physical Exam Comments: 12/30/18 11:05 GENERAL: Awake, alert, and fully oriented, in no acute distress HEAD: No signs of trauma EYES: PERRLA, EOMI, sclera anicteric, conjunctiva clear ENT: Oropharynx clear without exudates. Moist mucosa NECK: Normal ROM, supple, no lymphadenopathy, JVD, or masses LUNGS: +diminished lung sounds at the left base. No wheezes, and no crackles HEART: Regular rate and rhythm, normal S1 and S2, no murmurs, rubs or gallops ABDOMEN: Soft, nontender, normoactive bowel sounds. No guarding, no rebound. No masses EXTREMITIES: + 2+ pitting edema of lower extremity to mid calves bilaterally and symmetric. +b/l midline knee scars that are well healed. Normal range of motion. No clubbing or cyanosis. No cords, erythema. Mild R calf tenderness BACK: No midline spinal tenderness in cervical/thoracic/lumbar region NEUROLOGICAL: Normal speech, cranial nerves intact, equal strength and sensation b.l SKIN: Warm, Dry, normal turgor, no rashes or lesions noted. Heart Score/ECG Review #1 12/30/18 11:23 EKG read and int by me: Sinus rhythm, rate 68. Left axis deviation. Wavy baseline with frequent PVCs, some intermittent AV dissociation. RBBB. When compared to EKG from 05/04/18, no sig changes. ED Treatment Course - LABORATORY CBC & Chemistry Diagram: 12/30/18 11:29 12/30/18 11:29 - RADIOLOGY Radiology Studies Ordered: Category Date Time Status CHEST X-RAY PORTABLE* [RAD] Stat Radiology 12/30/18 11:08 Ordered DUPLEX VASCUL US-1 LEG [US] Stat Ultrasound 12/30/18 11:07 Ordered Medical Decision Making - Medical Decision Making 12/30/18 11:25 78yo M hx COPD, diabetes, GERD, NC (s/p stents x2, CABG), HTN, HLD, CHF presents to the ED with EGAN, LE edema Exam with diminished L sided lung sounds, LE edema, and R calf ttp DDx includes CHF vs ACS vs PNA vs PE Plan for labs, XR, RLE US to r/o DVT Anticipate admission 12/30/18 12:38 BNP elevated CXR with L sided congestive changes, "can not r/o infiltrate" Pt with no fevers, cough,white count, likely congestive changes only Pt ordered for lasix 40mg IV Case discussed with Dr. Alvarado, pt accepted for admission Case discussed in detail with admitting physician including history, physical exam and ancillary studies. Admitting physician has assumed care for the patient, will follow all pending diagnostics and will complete the evaluation and treatment. *DC/Admit/Observation/Transfer Diagnosis at time of Disposition: CHF (congestive heart failure) - Discharge Dispostion Decision to Admit order: No - Referrals Referrals: Diamante Alvarado MD [Primary Care Provider] - - Patient Instructions - Post Discharge Activity - Attestations Physician Attestion: 12/30/18 12:44 I, Dr. Kendy Michael MD, attest that this document has been prepared under my direction and personally reviewed by me in its entirety. I further attest, that it accurately reflects all work, treatment, procedures and medical decision -making performed by me.
[2018-12-30 11:38] LABS: BASO % 0.9 % (0-2.0); EOS % 1.3 % (0-4.5); HEMATOCRIT 36.6 % (35.4-49); HEMOGLOBIN 11.7 GM/dL (11.7-16.9); LYMPH % 14.6 % (8-40); MCH 27.5 pg (25.7-33.7); MCHC 32.1 g/dl (32.0-35.9); MEAN CELL VOLUME 85.8 fl (80-96); MEAN PLT VOLUME 8.5 fl (7.5-11.1); MONO % 7.5 % (3.8-10.2); NEUT % 75.7 % (42.8-82.8); PLATELET COUNT 147 K/MM3 (134-434); RBC 4.26 M/mm3 (4.00-5.60); RDW 18.9 % (11.9-15.9); WHITE BLOOD COUNT 5.2 K/mm3 (4.0-10.0)
[2018-12-30 11:47] LABS: INR 1.15 (0.83-1.09); PROTHROMBIN TIME (PATIENT) 13.6 SEC (9.7-13.0)
[2018-12-30 11:50] LABS: ACTIVATED PTT 36.1 SECONDS (25.2-36.5)
[2018-12-30 12:11] LABS: ALBUMIN 3.3 g/dl (3.4-5.0); BILIRUBIN,TOTAL 0.6 mg/dL (0.2-1); BLOOD UREA NITROGEN 51.4 mg/dL (7-18); CREATININE 2.4 mg/dL (0.55-1.3); MAGNESIUM 2.3 mg/dL (1.8-2.4); N-TERMINAL BNP 6087.6 pg/ml (5-450); POTASSIUM 4.9 mmol/L (3.5-5.1); TOT PROT 7.1 g/dl (6.4-8.2)
[2018-12-30] MEDS ORDERED: FUROSEMIDE 40 MG/4 ML INJECTABLE VIAL IVPUSH ONE (12:33)
[2018-12-30] MEDS ORDERED: FUROSEMIDE 40 MG/4 ML INJECTABLE VIAL ONE (12:37)
[2018-12-30] MEDS ORDERED: ACETAMINOPHEN 325 MG TABLET (FP) PO PRN (12:50)
[2018-12-30] MEDS ORDERED: ARTIFICIAL TEARS (POLYVINYL ALCOHOL) OPTH DROPS OU PRN (12:50)
[2018-12-30] MEDS: FUROSEMIDE 40 MG/4 ML INJECTABLE VIAL IVPUSH SCH (13:02)
--- NOTE | 2018-12-30 13:26 | CONSULT ---
Consult Consult Specialty:: Nephrology Reason for Consultation:: CKD - History of Present Illness Chief Complaint: shortness of breath History of Present Illness: Pt is a 78 year old male with pmhx of ckd, copd, dm, gerd, cad, hld, and htn who presents for shortness of breath. He says that the shortness of breath has been gradually getting worse. He also complains of lower ext edema. He denies chest pain. He was found to have elevated playback operator and I was called to evaluate him. He denies dysuria or hematuria. He denies fevers or chills. He has been on lasix 40 mg bid at home. He denies nsaid use. 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: Yes: Peripheral Neuropathy Cardio/Vascular: Yes: CHF, HTN, Hyperlipdemia, [place], Other (CABG) Pulmonary: Yes: COPD, Other (former smoker) Renal/: Yes: Renal Inusuff Musculoskeletal: Yes: Chronic low back pain, Osteoarthritis Endocrine: Yes: Diabetes Mellitus - Past Surgical History Past Surgical History: Yes: Bypass, CABG, Joint Replacement (bilateral knees) - Alcohol/Substance Use Hx Alcohol Use: No History of Substance Use: reports: None - Smoking History Smoking history: Never smoked Have you smoked in the past 12 months: No Aproximately how many cigarettes per day: 0 If you are a former smoker, when did you quit?: 30 years ago - Social History Usual Living Arrangement: With Child ADL: Family Assistance History of Recent Travel: No Home Medications - Allergies Allergies/Adverse Reactions: Allergies Allergy/AdvReac Type Severity Reaction Status Date / Time No Known Allergies Allergy Verified 12/30/18 09:33 - Home Medications Home Medications: Ambulatory Orders Insulin Aspart [Novolog] 15 unit SQ ASDIR 07/16/17 Insulin Degludec [Tresiba Flextouch U-100] 70 unit SQ DAILY 07/16/17 Aspirin [Ecotrin] 162 mg PO DAILY #60 tablet. 01/06/18 Atorvastatin Ca [Lipitor] 40 mg PO HS #30 tablet 01/06/18 Acetaminophen [Tylenol .Regular Strength -] 650 mg PO Q4H PRN tablet 03/23/18 Insulin Sliding Scale [Novolog Vial Sliding Scale -] 1 vial SQ ACHS units 03/23 Polyvinyl Alcohol [Artificial Tears] 1 drop OU QID PRN drops 05/12/18 Potassium Chloride [K-Dur -] 20 meq PO DAILY 30 Days #30 tablet.er 05/12/18 Colchicine [Colcrys] 0.6 mg PO DAILY 12/30/18 Furosemide [Lasix -] 40 mg PO BID@0600,1300 12/30/18 Gabapentin [Neurontin -] 100 mg PO BID 12/30/18 Omeprazole 40 mg PO DAILY 12/30/18 Spironolactone [Aldactone] 25 mg PO DAILY 12/30/18 Tamsulosin HCl [Flomax] 0.4 mg PO BID 12/30/18 Family Disease History - Family Disease History Family Disease History: Diabetes: Father, Mother Review of Systems - Review of Systems Constitutional: reports: Malaise Eyes: reports: No Symptoms HENT: reports: No Symptoms Neck: reports: No Symptoms Cardiovascular: reports: Edema, Shortness of Breath Respiratory: reports: SOB, SOB on Exertion Genitourinary: reports: No Symptoms Musculoskeletal: reports: No Symptoms Integumentary: reports: No Symptoms Neurological: reports: No Symptoms Endocrine: reports: No Symptoms Psychiatric: reports: No Symptoms Physical Exam Vital Signs: Vital Signs Temperature 98.2 F 12/30/18 09:31 Pulse Rate 56 L 12/30/18 09:31 Respiratory Rate 18 12/30/18 09:31 Blood Pressure 161/68 12/30/18 09:31 O2 Sat by Pulse Oximetry (%) 95 12/30/18 09:31 Constitutional: Yes: Calm Eyes: Yes: Conjunctiva Clear HENT: Yes: Atraumatic Neck: Yes: Supple Cardiovascular: Yes: S1, S2 Respiratory: Yes: Rhonchi Gastrointestinal: Yes: Normal Bowel Sounds, Soft Renal/: Yes: WNL Musculoskeletal: Yes: WNL Edema: Yes Edema: LLE: 2+, RLE: 2+ Neurological: Yes: Oriented Psychiatric: Yes: Oriented Labs: CBC, BMP 12/30/18 11:29 12/30/18 11:29 Laboratory Tests 03/21/18 03/23/18 05/03/18 07:15 06:20 06:40 WBC Hgb Plt Count Creatinine 2.5 H 2.4 H 2.0 H 05/04/18 05/05/18 05/06/18 05:30 05:30 06:28 WBC Hgb Plt Count Creatinine 2.0 H 2.0 H 2.1 H 05/09/18 05/10/18 05/12/18 11:22 06:30 06:45 WBC Hgb Plt Count Creatinine 2.3 H 2.6 H 2.4 H 12/30/18 12/30/18 11:29 11:29 WBC 5.2 Hgb 11.7 Plt Count 147 D Creatinine 2.4 H Imaging - Results Chest X-ray: Report Reviewed Problem List - Problems (1) CHF (congestive heart failure) Code(s): I50.9 - HEART FAILURE, UNSPECIFIED (2) CKD (chronic kidney disease) Code(s): N18.9 - CHRONIC KIDNEY DISEASE, UNSPECIFIED Assessment/Plan Current Medications Generic Name Dose Route Start Last Admin Trade Name Freq PRN Reason Stop Dose Admin Acetaminophen 650 mg 12/30/18 12:50 Tylenol - PO Q4H PRN PAIN Artificial Tears 1 drop 12/30/18 12:50 Artificial Tears OU QID PRN DRY EYES Aspirin 162 mg 12/31/18 10:00 Ecotrin - PO DAILY [facility] Atorvastatin Calcium 40 mg 12/30/18 22:00 Lipitor - PO HS JENNIFER Colchicine 0.6 mg 12/31/18 10:00 Colcrys PO DAILY JENNIFER Furosemide 40 mg 12/30/18 14:00 12/30/18 13:02 Lasix Injection - IVPUSH Not Given BID@0600,1400 [facility] Gabapentin 100 mg 12/30/18 22:00 Neurontin - PO BID [facility] Insulin Aspart 1 vial 12/30/18 16:30 Novolog Vial Sliding Scale - SQ ACHS [facility] Protocol Non-Formulary Medication 70 unit 12/31/18 10:00 Insulin Degludec [Tresiba Flextouch U-100] SQ DAILY [facility] Spironolactone 25 mg 12/31/18 10:00 Aldactone - PO DAILY [facility] Tamsulosin HCl 0.4 mg 12/30/18 22:00 Flomax - PO BID [facility] Impression 1. CKD 2. CHF 3. DM 4. obesity 5. HTN 6. dyspnea 7. HLD 8. CAD s/p cabg 9. volume overload Plan - cont lasix - cont aldactone and monitor lytes - daily bmp - check echo - check ua - discussed with medical team - will follow
[2018-12-30 13:29] LABS: CARBOXYHEMOGLOBIN 1.4 % (0-2)
[2018-12-30 16:56] LABS: RATIO URIN PROTEIN/URIN CREAT 1.5 MG/DL
--- NOTE | 2018-12-30 17:00 | CON.CARD ---
Cardiology Consult (text) - Consultation Consultation Note: Chief Complaint: shortness of breath, le edema History of Present Illness: 78M h/o chronic diastolic HF, CKD, HTN, cabg,p/w sob, le edema. Present for weeks, getting worse so came to ER. No cp palps dizzy loc pnd orthopnea. Sees dr richards/sarah for cardio. - History Source History Provided By: Patient - Past Medical History [facility] CONSULTANT: Yes: Peripheral Neuropathy Cardio/Vascular: Yes: CHF, HTN, Hyperlipdemia, [place], Other (CABG) Pulmonary: Yes: COPD, Other (former smoker) Renal/: Yes: Renal Inusuff Musculoskeletal: Yes: Chronic low back pain, Osteoarthritis Endocrine: Yes: Diabetes Mellitus - Past Surgical History Past Surgical History: Yes: Bypass, CABG, Joint Replacement (bilateral knees) - Alcohol/Substance Use Hx Alcohol Use: No History of Substance Use: reports: None - Smoking History Smoking history: Never smoked Have you smoked in the past 12 months: No Aproximately how many cigarettes per day: 0 If you are a former smoker, when did you quit?: 30 years ago - Social History Usual Living Arrangement: With Child ADL: Family Assistance History of Recent Travel: No Home Medications - Allergies Allergies/Adverse Reactions: Allergies Allergy/AdvReac Type Severity Reaction Status Date / Time No Known Allergies Allergy Verified 12/30/18 09:33 - Home Medications Home Medications Medication Instructions Recorded Insulin Aspart [Novolog] 15 unit SQ ASDIR 07/16/17 Insulin Degludec [Tresiba 70 unit SQ DAILY 07/16/17 Flextouch U-100] Aspirin [Ecotrin] 162 mg PO DAILY #60 tablet. 01/06/18 Atorvastatin Ca [Lipitor] 40 mg PO HS #30 tablet 01/06/18 Acetaminophen [Tylenol .Regular 650 mg PO Q4H PRN tablet 03/23/18 Strength -] Insulin Sliding Scale [Novolog 1 vial SQ ACHS units 03/23/18 Vial Sliding Scale -] Polyvinyl Alcohol [Artificial 1 drop OU QID PRN drops 05/12/18 Tears] Potassium Chloride [K-Dur -] 20 meq PO DAILY 30 Days #30 05/12/18 tablet.er Colchicine [Colcrys] 0.6 mg PO DAILY 12/30/18 Furosemide [Lasix -] 40 mg PO BID@0600,1300 12/30/18 Gabapentin [Neurontin -] 100 mg PO BID 12/30/18 Omeprazole 40 mg PO DAILY 12/30/18 Spironolactone [Aldactone] 25 mg PO DAILY 12/30/18 Tamsulosin HCl [Flomax] 0.4 mg PO BID 12/30/18 Family Disease History - Family Disease History Family Disease History: Diabetes: Father, Mother Review of Systems per hpi - Review of Systems Constitutional: reports: No Symptoms Eyes: reports: No Symptoms HENT: reports: No Symptoms Neck: reports: No Symptoms Gastrointestinal: reports: No Symptoms Genitourinary: reports: No Symptoms Musculoskeletal: reports: No Symptoms Integumentary: reports: No Symptoms Neurological: reports: No Symptoms Endocrine: reports: No Symptoms Hematology/Lymphatic: reports: No Symptoms Psychiatric: reports: No Symptoms Vital Signs: Vital Signs Period Temp Pulse Resp BP Sys/Whitehead Pulse Ox Last 24 Hr 98.2 F 56 18 161/68 95 Constitutional: Yes: Well Nourished, No Distress, Calm Eyes: Yes: Conjunctiva Clear Neck: Yes: Supple, Trachea Midline Respiratory: Yes: Regular, nl eff Rales (tristan bases) Gastrointestinal: Yes: Normal Bowel Sounds, Soft Cardiovascular: Yes: Pulse Irregular JVD: Yes Carotid Bruit: No PMI: Non-Displaced Heart Sounds: Yes: S1, S2 Extremities: No: Cold Edema: Yes Edema: LLE: 2+, RLE: 2+ Peripheral Pulses WNL: Yes Peripheral Pulses: 2+ Left Carotid, 2+ Right Carotid, 2+ Left Doralis Pedis, 2+ Right Dorsalis Pedis Integumentary: No: Jaundice Neurological: Yes: Alert, Oriented Psychiatric: Yes: Alert, Oriented - Other Data Labs, Other Data: Laboratory Last Values WBC 5.2 K/mm3 (4.0-10.0) 12/30/18 11:29 RBC 4.26 M/mm3 (4.00-5.60) 12/30/18 11:29 Hgb 11.7 GM/dL (11.7-16.9) 12/30/18 11:29 Hct 36.6 % (35.4-49) 12/30/18 11:29 MCV 85.8 fl (80-96) 12/30/18 11:29 MCH 27.5 pg (25.7-33.7) D 12/30/18 11:29 MCHC 32.1 g/dl (32.0-35.9) 12/30/18 11:29 RDW 18.9 % (11.9-15.9) H 12/30/18 11:29 Plt Count 147 K/MM3 (134-434) D 12/30/18 11:29 MPV 8.5 fl (7.5-11.1) 12/30/18 11:29 Absolute Neuts (auto) 4.0 K/mm3 (1.5-8.0) 12/30/18 11:29 Neutrophils % 75.7 % (42.8-82.8) 12/30/18 11:29 Lymphocytes % 14.6 % (8-40) 12/30/18 11:29 Monocytes % 7.5 % (3.8-10.2) 12/30/18 11:29 Eosinophils % 1.3 % (0-4.5) 12/30/18 11:29 Basophils % 0.9 % (0-2.0) 12/30/18 11:29 Nucleated RBC % 0 % (0-0) 12/30/18 11:29 PT with INR 13.60 SEC (9.7-13.0) H 12/30/18 11:29 INR 1.15 (0.83-1.09) H 12/30/18 11:29 PTT (Actin FS) 36.1 SECONDS (25.2-36.5) 12/30/18 11:29 Carboxyhemoglobin 1.4 % (0-2) 12/30/18 13:18 Methemoglobin < 1.0 % (0-2) 12/30/18 13:18 Sodium 142 mmol/L (136-145) 12/30/18 11:29 Potassium 4.9 mmol/L (3.5-5.1) 12/30/18 11:29 Chloride 110 mmol/L (98-107) H 12/30/18 11:29 Carbon Dioxide 28 mmol/L (21-32) 12/30/18 11:29 Anion Gap 3 MMOL/L (8-16) L 12/30/18 11:29 BUN 51.4 mg/dL (7-18) H 12/30/18 11:29 Creatinine 2.4 mg/dL (0.55-1.3) H 12/30/18 11:29 Est GFR (CKD-EPI)AfAm 28.66 12/30/18 11:29 Est GFR (CKD-EPI)NonAf 24.73 12/30/18 11:29 POC Glucometer 115 UNITS (80-120) 12/30/18 16:59 Random Glucose 99 mg/dL (74-106) 12/30/18 11:29 Calcium 9.0 mg/dL (8.5-10.1) 12/30/18 11:29 Magnesium 2.3 mg/dL (1.8-2.4) 12/30/18 11:29 Total Bilirubin 0.6 mg/dL (0.2-1) 12/30/18 11:29 AST 14 U/L (15-37) L 12/30/18 11:29 ALT 19 U/L (13-61) 12/30/18 11:29 Alkaline Phosphatase 129 U/L (45-117) H 12/30/18 11:29 Troponin I 0.04 ng/ml (0.00-0.05) 12/30/18 11:29 B-Natriuretic Peptide 6087.6 pg/ml (5-450) H 12/30/18 11:29 Total Protein 7.1 g/dl (6.4-8.2) 12/30/18 11:29 Albumin 3.3 g/dl (3.4-5.0) L 12/30/18 11:29 U Random Total Protein 51.3 mg/dl (0-11.9) H 12/30/18 15:50 Urine Creatinine 34.0 mg/dL (20-320) 12/30/18 15:50 echo 06/2017: mild dec lvef, nl rv, mild mr, mild-mod tr, rvsp 40-50, mild ar, mild pr ecg: sinus, mobitz 1, pvcs. RBBB, NSST-Ts--similar to priors mibi 04/2018: mild nonextensive apical ischemia. anterolateral scar, lvef 43 cxr: chf a/p: 78 m hx cad, mi x2, cabg 2012, pci x2 2017, mobitz I, dchf, copd, dm, htn , hld, ckd here with sob, le edema. acute diastolic chf: -cont iv lasix, daily wts, chem7 -cont aldactone -check echo CKD: -cr near baseline, monitor with lasix cad: -stable, no signs acs -cont asa, statin -recent stress test with low risk findings, continue current medical management of cad. abnl ecg, mobitz 1: -chronic finding, stable htn: -cont current meds hld: -cont statin
[2018-12-30 17:05] LABS: EPI CELLS 0.1 /HPF (0-5/HPF); HYALINE CASTS 0 /lpf (0-8); URINE APPEARANCE Error; URINE BACTERIA 9.3 /hpf (NEGATIVE); URINE BILIRUBIN NEGATIVE (NEGATIVE); URINE COLOR YELLOW; URINE GLUCOSE (UA) NEGATIVE (NEGATIVE); URINE KETONE NEGATIVE (NEGATIVE); URINE LEUK ESTERASE NEGATIVE (NEGATIVE); URINE NITRITE NEGATIVE (NEGATIVE); URINE PROTEIN 1+ (NEGATIVE); URINE RBC 2 /hpf (0-4); URINE UROBILINOGEN 0.2 mg/dL (0.2-1.0); URINE WBC 0 /hpf (0-5)
[2018-12-30] MEDS: INSULIN SLIDING SCALE (NOVOLOG) 1 VIAL SQ SCH ×2 (17:26→23:35)
--- NOTE | 2018-12-30 21:03 | ECHO ---
Version: 1 Name: AUSTIN RAYMUNDO Exam: Adult Echocardiogram Study Date: 12/30/2018, 2:08 PM Age: 78 Years Procedure A two-dimensional transthoracic echocardiogram with color flow and Doppler was performed. The study was technically difficult with many images being suboptimal in quality. Left Ventricle The left ventricle is not well visualized. The left ventricle is grossly normal size. Due to the poo r quality of the echocardiogram, an assessment of left ventricular ejection fraction cannot be made. Regional wall motion abnormalities cannot be excluded due to limited visualization. Right Ventricle The right ventricle is not well visualized. Atria Normal left and right atrial size and function. Mitral Valve The mitral valve is not well visualized. Tricuspid Valve The tricuspid valve is normal in structure and function. There is no tricuspid stenosis. There is mo derate to severe tricuspid regurgitation. Right ventricular systolic pressure is normal. Aortic Valve The aortic valve is not well visualized. No hemodynamically significant valvular aortic stenosis. Mi ld aortic regurgitation. Pulmonic Valve The pulmonic valve is not well visualized. Great Vessels The aortic root is normal size. Pericardium/Pleura There is no pericardial effusion. Summary Statements The study was technically difficult with many images being suboptimal in quality. Regional wall motion abnormalities cannot be excluded due to limited visualization. There is moderate to severe tricuspid regurgitation. Right ventricular systolic pressure is normal. The right ventricle is not well visualized. The left ventricle is not well visualized. The left ventricle is grossly normal size. Due to the poor quality of the echocardiogram, an assessment of left ventricular ejection fraction c annot be made. The mitral valve is not well visualized. The aortic valve is not well visualized. The pulmonic valve is not well visualized. MD Mehran Isabel 12/30/2018, 8:02 PM Ordering Physician: Ernie Omer Referring Physician: ALFREDO SALVADOR Performed By: Rupinder Michaels
[2018-12-30] MEDS: TAMSULOSIN HCL 0.4 MG CAP PO SCH (23:27)
[2018-12-30] MEDS: ATORVASTATIN CA 40 MG TABLET (FP) PO SCH (23:27)
[2018-12-30] MEDS: GABAPENTIN 100 MG CAPSULE (FP) PO SCH (23:27)
--- NOTE | 2018-12-31 00:25 | HP ---
Admitting History and Physical - Admission History of Present Illness: Pt is a 78 year old male with pmhx of ckd, copd, dm, gerd, cad, hld, and htn who presents for shortness of breath. He says that the shortness of breath has been gradually getting worse. He also complains of lower ext edema. He denies chest pain. He was found to have elevated Cr. He denies dysuria or hematuria. He denies fevers or chills. He has been on lasix 40 mg bid at home. He denies nsaid use. 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: Peripheral Neuropathy Cardiovascular: Yes: CHF, HTN, Hyperlipdemia, CT, Other (CABG) Pulmonary: Yes: COPD, Other (former smoker) Renal/: Yes: Renal Inusuff Musculoskeletal: Yes: Chronic low back pain, Osteoarthritis Endocrine: Yes: Diabetes Mellitus - Past Surgical History Past Surgical History: Yes: Bypass, CABG, Joint Replacement (bilateral knees) - Smoking History Smoking history: Never smoked Have you smoked in the past 12 months: No Aproximately how many cigarettes per day: 0 If you are a former smoker, when did you quit?: 30 years ago - Alcohol/Substance Use Hx Alcohol Use: No History of Substance Use: reports: None - Social History ADL: Family Assistance History of Recent Travel: No Home Medications - Allergies Allergies/Adverse Reactions: Allergies Allergy/AdvReac Type Severity Reaction Status Date / Time No Known Allergies Allergy Verified 12/30/18 09:33 - Home Medications Home Medications: Ambulatory Orders Insulin Aspart [Novolog] 15 unit SQ ASDIR 07/16/17 Insulin Degludec [Tresiba Flextouch U-100] 70 unit SQ DAILY 07/16/17 Aspirin [Ecotrin] 162 mg PO DAILY #60 tablet. 01/06/18 Atorvastatin Ca [Lipitor] 40 mg PO HS #30 tablet 01/06/18 Acetaminophen [Tylenol .Regular Strength -] 650 mg PO Q4H PRN tablet 03/23/18 Insulin Sliding Scale [Novolog Vial Sliding Scale -] 1 vial SQ ACHS units 03/23 Polyvinyl Alcohol [Artificial Tears] 1 drop OU QID PRN drops 05/12/18 Potassium Chloride [K-Dur -] 20 meq PO DAILY 30 Days #30 tablet.er 05/12/18 Colchicine [Colcrys] 0.6 mg PO DAILY 12/30/18 Furosemide [Lasix -] 40 mg PO BID@0600,1300 12/30/18 Gabapentin [Neurontin -] 100 mg PO BID 12/30/18 Omeprazole 40 mg PO DAILY 12/30/18 Spironolactone [Aldactone] 25 mg PO DAILY 12/30/18 Tamsulosin HCl [Flomax] 0.4 mg PO BID 12/30/18 Family Disease History - Family Disease History Family Disease History: Diabetes: Father, Mother Review of Systems - Review of Systems Constitutional: reports: No Symptoms Eyes: reports: No Symptoms HENT: reports: No Symptoms Neck: reports: No Symptoms Cardiovascular: reports: Shortness of Breath Respiratory: reports: Cough, Orthopnea, SOB Gastrointestinal: reports: No Symptoms Genitourinary: reports: No Symptoms Breasts: reports: No Symptoms Reported Musculoskeletal: reports: Back Pain, Joint Pain Integumentary: reports: Change in Color Neurological: reports: Parasthesia, Pre-Existing Deficit, Unsteady Gait Endocrine: reports: No Symptoms Hematology/Lymphatic: reports: No Symptoms Psychiatric: reports: No Symptoms Physical Examination Vital Signs: Vital Signs Temperature 98 F 12/30/18 22:39 Pulse Rate 48 L 12/30/18 22:39 Respiratory Rate 17 12/30/18 22:39 Blood Pressure 159/80 12/30/18 22:39 O2 Sat by Pulse Oximetry (%) 96 12/30/18 22:39 Constitutional: Yes: Well Nourished, No Distress Eyes: Yes: Conjunctiva Clear, EOM Intact HENT: Yes: Atraumatic, Normocephalic Neck: Yes: Supple, Trachea Midline Cardiovascular: Yes: Regular Rate and Rhythm Respiratory: Yes: Rales, Rhonchi, SOB on Exertion Gastrointestinal: Yes: Normal Bowel Sounds, Soft, Abdomen, Obese Renal/: Yes: WNL Breast(s): Yes: WNL Musculoskeletal: Yes: Back Pain, Joint Stiffness, Muscle Weakness Edema: Yes Edema: LLE: 1+, RLE: 1+ Peripheral Pulses WNL: Yes Integumentary: Yes: WNL, Venous Stasis Changes Neurological: Yes: Alert, Oriented, Pre-Existing Deficit Psychiatric: Yes: Alert, Oriented Labs: CBC, BMP 12/30/18 11:29 12/30/18 11:29 Problem List - Problems (1) CHF (congestive heart failure) Code(s): I50.9 - HEART FAILURE, UNSPECIFIED (2) Acute on chronic diastolic (congestive) heart failure Code(s): I50.33 - ACUTE ON CHRONIC DIASTOLIC (CONGESTIVE) HEART FAILURE (3) CHF exacerbation Code(s): I50.9 - HEART FAILURE, UNSPECIFIED (4) CKD (chronic kidney disease) Code(s): N18.9 - CHRONIC KIDNEY DISEASE, UNSPECIFIED (5) Diabetes Code(s): E11.9 - TYPE 2 DIABETES MELLITUS WITHOUT COMPLICATIONS Qualifiers: Diabetes mellitus 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
[2018-12-31] MEDS: FUROSEMIDE 40 MG/4 ML INJECTABLE VIAL IVPUSH SCH ×2 (06:21→14:37)
[2018-12-31] MEDS: INSULIN SLIDING SCALE (NOVOLOG) 1 VIAL SQ SCH ×4 (06:24→21:34)
[2018-12-31 06:37] LABS: ARTERIAL BLD GAS O2 SATURATION 97.2 % (95-98); ARTERIAL BLOOD GAS BASE EXCESS 0.8 meq/l (-2-2); ARTERIAL BLOOD GAS PCO2 44.8 mmHg (35-45); ARTERIAL BLOOD GAS PO2 93.5 mmHg (80-100); ARTERIAL BLOOD GAS pH 7.38 (7.35-7.45)
[2018-12-31 06:38] LABS: ALLENS TEST POSITIVE
[2018-12-31 07:11] LABS: BASO % 0.9 % (0-2.0); EOS % 2.1 % (0-4.5); HEMATOCRIT 35.1 % (35.4-49); HEMOGLOBIN 11.5 GM/dL (11.7-16.9); LYMPH % 15.7 % (8-40); MCH 27.8 pg (25.7-33.7); MCHC 32.6 g/dl (32.0-35.9); MEAN CELL VOLUME 85.1 fl (80-96); MEAN PLT VOLUME 8.6 fl (7.5-11.1); MONO % 9.4 % (3.8-10.2); NEUT % 71.9 % (42.8-82.8); PLATELET COUNT 142 K/MM3 (134-434); RBC 4.13 M/mm3 (4.00-5.60); RDW 18.9 % (11.9-15.9); WHITE BLOOD COUNT 4.7 K/mm3 (4.0-10.0)
[2018-12-31 07:42] LABS: BILIRUBIN,TOTAL 0.7 mg/dL (0.2-1); BLOOD UREA NITROGEN 56.1 mg/dL (7-18); CALCIUM 9.1 mg/dL (8.5-10.1); CREATININE 2.1 mg/dL (0.55-1.3); MAGNESIUM 2.2 mg/dL (1.8-2.4); POTASSIUM 4.3 mmol/L (3.5-5.1); TOT PROT 6.5 g/dl (6.4-8.2)
[2018-12-31] MEDS ORDERED: INSULIN (NOVOLOG) ASPART 100 UNITS/ML 10ML VIAL ONE (08:15)
--- NOTE | 2018-12-31 09:43 | PN ---
Progress Note (short form) - Note Progress Note: 78 y/o male found sitting on edge of bed. States that he feels a little better. Vital Signs Period Temp Pulse Resp BP Sys/Whitehead Pulse Ox Last 24 Hr 97.4 F-98.4 F 48-117 17-20 138-168/62-93 96-96 CBC, BMP 12/31/18 05:29 12/31/18 05:29 HEENT- NL Neck-Trachea midline Lungs- CTAb Heart- S1/S2 Abd- soft, nt Ext- 1+ pitting edema B/L Active Medications Acetaminophen (Tylenol -) 650 mg PO Q4H PRN PRN Reason: PAIN Artificial Tears (Artificial Tears) 1 drop OU QID PRN PRN Reason: DRY EYES Aspirin (Ecotrin -) 162 mg PO DAILY [facility] Atorvastatin Calcium (Lipitor -) 40 mg PO HS [facility] Last Admin: 12/30/18 23:27 Dose: 40 mg Colchicine (Colcrys) 0.6 mg PO DAILY [facility] Furosemide (Lasix Injection -) 40 mg IVPUSH BID@0600,1400 [facility] Last Admin: 12/31/18 06:21 Dose: 40 mg Gabapentin (Neurontin -) 100 mg PO BID [facility] Last Admin: 12/30/18 23:27 Dose: 100 mg Insulin Aspart (Novolog Vial Sliding Scale -) 1 vial SQ [facility]; Protocol Last Admin: 12/31/18 06:24 Dose: Not Given Non-Formulary Medication (Insulin Degludec [Tresiba Flextouch U-100]) 70 unit SQ DAILY [facility] Spironolactone (Aldactone -) 25 mg PO DAILY [facility] Tamsulosin HCl (Flomax -) 0.4 mg PO BID [facility] Last Admin: 12/30/18 23:27 Dose: 0.4 mg #CHF Chest xray showed atelectasis lt base? IV Lasix Echo reviewed Appreciate Cardiology consult ASA/Statin #HTN Lasix/Aldactone Monitor BP #IDDM Monitor BG Gabapentin for neuropathy Novolog sliding scale #CKD Monitor Lytes Cont Lasix UA reviewed Appreciate Renal consult Problem List - Problems (1) CHF (congestive heart failure) Code(s): I50.9 - HEART FAILURE, UNSPECIFIED (2) Acute on chronic diastolic (congestive) heart failure Code(s): I50.33 - ACUTE ON CHRONIC DIASTOLIC (CONGESTIVE) HEART FAILURE (3) CHF exacerbation Code(s): I50.9 - HEART FAILURE, UNSPECIFIED (4) CKD (chronic kidney disease) Code(s): N18.9 - CHRONIC KIDNEY DISEASE, UNSPECIFIED (5) Diabetes Code(s): E11.9 - TYPE 2 DIABETES MELLITUS WITHOUT COMPLICATIONS Qualifiers: Diabetes 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
[2018-12-31] MEDS ORDERED: INSULIN DEGLUDEC SQ SCH (10:00)
[2018-12-31] MEDS: ASPIRIN COATED 81 MG TABLET.EC PO SCH (10:41)
[2018-12-31] MEDS: SPIRONOLACTONE 25 MG TABLET (FP) PO SCH (10:41)
[2018-12-31] MEDS: COLCHICINE 0.6 MG CAP PO SCH (10:41)
[2018-12-31] MEDS: TAMSULOSIN HCL 0.4 MG CAP PO SCH ×2 (10:42→21:33)
[2018-12-31] MEDS: GABAPENTIN 100 MG CAPSULE (FP) PO SCH ×2 (10:42→21:33)
--- NOTE | 2018-12-31 11:34 | PN ---
Progress Note (short form) - Note Progress Note: s: no cp palps dizzy, sob and le edema improving Current Medications Generic Name Dose Route Start Last Admin Trade Name Freq PRN Reason Stop Dose Admin Acetaminophen 650 mg 12/30/18 12:50 Tylenol - PO Q4H PRN PAIN Artificial Tears 1 drop 12/30/18 12:50 Artificial Tears OU QID PRN DRY EYES Aspirin 162 mg 12/31/18 10:00 12/31/18 10:41 Ecotrin - PO 162 mg DAILY JENN[facility]ER Administration Atorvastatin Calcium 40 mg 12/30/18 22:00 12/30/18 23:27 Lipitor - PO 40 mg HS JENNIFER Administration Colchicine 0.6 mg 12/31/18 10:00 12/31/18 10:41 Colcrys PO 0.6 mg DAILY JENN[facility]ER Administration Furosemide 40 mg 12/30/18 14:00 12/31/18 06:21 Lasix Injection - IVPUSH 40 mg BID@0600,1400 JENNIFER Administration Gabapentin 100 mg 12/30/18 22:00 12/31/18 10:42 Neurontin - PO 100 mg BID JENNIFER Administration Insulin Aspart 1 vial 12/30/18 16:30 12/31/18 06:24 Novolog Vial Sliding Scale - SQ Not Given ACHS [facility] Protocol Non-Formulary Medication 70 unit 12/31/18 10:00 Insulin Degludec [Tresiba Flextouch U-100] SQ DAILY [facility] Spironolactone 25 mg 12/31/18 10:00 12/31/18 10:41 Aldactone - PO 25 mg DAILY [facility]ENN[facility]ER Administration Tamsulosin HCl 0.4 mg 12/30/18 22:00 12/31/18 10:42 Flomax - PO 0.4 mg BID JENN[facility]ER Administration Vital Signs Period Temp Pulse Resp BP Sys/Whitehead Pulse Ox Last 24 Hr 97.4 F-98.4 F 48-117 17-20 116-168/54-93 96-96 Constitutional: Yes: Well Nourished, No Distress, Calm Eyes: Yes: Conjunctiva Clear Neck: Yes: Supple, Trachea Midline Respiratory: Yes: Regular, nl eff Rales (tristan bases) Gastrointestinal: Yes: Normal Bowel Sounds, Soft Cardiovascular: Yes: Pulse Irregular JVD: Yes Carotid Bruit: No PMI: Non-Displaced Heart Sounds: Yes: S1, S2 Extremities: No: Cold Edema: Yes Edema: LLE: 1+, RLE: 1+ Integumentary: No: Jaundice Neurological: Yes: Alert, Oriented Psychiatric: Yes: Alert, Oriented CBC, BMP 12/31/18 05:29 12/31/18 05:29 echo 06/2017: mild dec lvef, nl rv, mild mr, mild-mod tr, rvsp 40-50, mild ar, mild pr ecg: sinus, mobitz 1, pvcs. RBBB, NSST-Ts--similar to priors mibi 04/2018: mild nonextensive apical ischemia. anterolateral scar, lvef 43 cxr: chf tele: , jennifer Ortega a/p: 78 m hx cad, mi x2, cabg 2012, pci x2 2017, jennifer Ortega, dchf, copd, dm, htn , hld, ckd here with sob, le edema. acute diastolic chf: -vol improved today, cont iv lasix, daily wts, chem7 -cont aldactone -check echo CKD: -cr near baseline, monitor with lasix cad: -stable, no signs acs -cont asa, statin -recent stress test with low risk findings, continue current medical management of cad. abnl ecg, jennifer 1: -chronic finding, stable htn: -cont current meds hld: -cont statin
--- NOTE | 2018-12-31 12:28 | EKG ---
Test Reason : Blood Pressure : / mmHG Vent. Rate : 074 BPM Atrial Rate : 083 BPM P-R Int : 000 ms QRS Dur : 138 ms QT Int : 450 ms P-R-T Axes : 000 -42 100 degrees QTc Int : 499 ms SINUS RHYTHM WITH MOBITZ I (WENCKEBACH) BLOCK LEFT AXIS DEVIATION RIGHT BUNDLE BRANCH BLOCK INFERIOR INFARCT , AGE UNDETERMINED ABNORMAL ECG Confirmed by KASANDRA SANZ MD ([id number]) on 12/31/2018 12:27:43 PM Referred By: Confirmed By:KASANDRA SANZ MD
--- NOTE | 2018-12-31 13:42 | PN ---
Progress Note, Physician History of Present Illness: Pt seen and examined at bedside. He is awake and alert. He feels that his edema is improving. - Current Medication List Current Medications: Active Medications Acetaminophen (Tylenol -) 650 mg PO Q4H PRN PRN Reason: PAIN Artificial Tears (Artificial Tears) 1 drop OU QID PRN PRN Reason: DRY EYES Aspirin (Ecotrin -) 162 mg PO DAILY [facility] Last Admin: 12/31/18 10:41 Dose: 162 mg Atorvastatin Calcium (Lipitor -) 40 mg PO HS [facility] Last Admin: 12/30/18 23:27 Dose: 40 mg Colchicine (Colcrys) 0.6 mg PO DAILY [facility] Last Admin: 12/31/18 10:41 Dose: 0.6 mg Furosemide (Lasix Injection -) 40 mg IVPUSH BID@0600,1400 [facility] Last Admin: 12/31/18 06:21 Dose: 40 mg Gabapentin (Neurontin -) 100 mg PO BID [facility] Last Admin: 12/31/18 10:42 Dose: 100 mg Insulin Aspart (Novolog Vial Sliding Scale -) 1 vial SQ [facility]; Protocol Last Admin: 12/31/18 13:00 Dose: 2 units Non-Formulary Medication (Insulin Degludec [Tresiba Flextouch U-100]) 70 unit SQ DAILY [facility] Spironolactone (Aldactone -) 25 mg PO DAILY [facility] Last Admin: 12/31/18 10:41 Dose: 25 mg Tamsulosin HCl (Flomax -) 0.4 mg PO BID [facility] Last Admin: 12/31/18 10:42 Dose: 0.4 mg - Objective Vital Signs: Vital Signs Temperature 97.6 F 12/31/18 10:31 Pulse Rate 60 12/31/18 10:31 Respiratory Rate 18 12/31/18 10:31 Blood Pressure 116/54 L 12/31/18 10:31 O2 Sat by Pulse Oximetry (%) 96 12/30/18 22:39 Constitutional: Yes: Calm Eyes: Yes: Conjunctiva Clear HENT: Yes: Atraumatic Neck: Yes: Supple Cardiovascular: Yes: S1, S2 Respiratory: Yes: Rhonchi Gastrointestinal: Yes: Normal Bowel Sounds, Soft Genitourinary: Yes: WNL Musculoskeletal: Yes: WNL Edema: Yes Edema: LLE: 2+, RLE: 2+ Neurological: Yes: Oriented Psychiatric: Yes: Oriented Labs: CBC, BMP 12/31/18 05:29 12/31/18 05:29 INR, PTT INR 1.15 (0.83-1.09) H 12/30/18 11:29 Problem List - Problems (1) CHF (congestive heart failure) Code(s): I50.9 - HEART FAILURE, UNSPECIFIED (2) CKD (chronic kidney disease) Code(s): N18.9 - CHRONIC KIDNEY DISEASE, UNSPECIFIED Assessment/Plan Current Medications Generic Name Dose Route Start Last Admin Trade Name Freq PRN Reason Stop Dose Admin Acetaminophen 650 mg 12/30/18 12:50 Tylenol - PO Q4H PRN PAIN Artificial Tears 1 drop 12/30/18 12:50 Artificial Tears OU QID PRN DRY EYES Aspirin 162 mg 12/31/18 10:00 12/31/18 10:41 Ecotrin - PO 162 mg DAILY [facility] Administration Atorvastatin Calcium 40 mg 12/30/18 22:00 12/30/18 23:27 Lipitor - PO 40 mg HS [facility] Administration Colchicine 0.6 mg 12/31/18 10:00 12/31/18 10:41 Colcrys PO 0.6 mg DAILY [facility] Administration Furosemide 40 mg 12/30/18 14:00 12/31/18 06:21 Lasix Injection - IVPUSH 40 mg BID@0600,1400 [facility] Administration Gabapentin 100 mg 12/30/18 22:00 12/31/18 10:42 Neurontin - PO 100 mg BID [facility] Administration Insulin Aspart 1 vial 12/30/18 16:30 12/31/18 13:00 Novolog Vial Sliding Scale - SQ 2 units ACHS [facility] Administration Protocol Non-Formulary Medication 70 unit 12/31/18 10:00 Insulin Degludec [Tresiba Flextouch U-100] SQ DAILY [facility] Spironolactone 25 mg 12/31/18 10:00 12/31/18 10:41 Aldactone - PO 25 mg DAILY [facility] Administration Tamsulosin HCl 0.4 mg 12/30/18 22:00 12/31/18 10:42 Flomax - PO 0.4 mg BID JENN[facility]ER Administration Impression 1. CKD 2. CHF 3. DM 4. obesity 5. HTN 6. dyspnea 7. HLD 8. CAD s/p cabg 9. volume overload Plan - cont with diuretics - renal function is improved - monitor volume status - check echo - ua reviewed - will follow
[2018-12-31] MEDS: ACETAMINOPHEN 325 MG TABLET (FP) PO PRN (16:28)
[2018-12-31] MEDS: ATORVASTATIN CA 40 MG TABLET (FP) PO SCH (21:33)
[2019-01-01] MEDS: FUROSEMIDE 40 MG/4 ML INJECTABLE VIAL IVPUSH SCH ×2 (06:33→14:15)
[2019-01-01] MEDS: INSULIN SLIDING SCALE (NOVOLOG) 1 VIAL SQ SCH ×4 (06:33→21:18)
[2019-01-01 06:42] LABS: BASO % 0.8 % (0-2.0); EOS % 2.3 % (0-4.5); HEMATOCRIT 35.8 % (35.4-49); HEMOGLOBIN 11.6 GM/dL (11.7-16.9); LYMPH % 18.2 % (8-40); MCH 27.8 pg (25.7-33.7); MCHC 32.5 g/dl (32.0-35.9); MEAN CELL VOLUME 85.5 fl (80-96); MONO % 9.4 % (3.8-10.2); NEUT % 69.3 % (42.8-82.8); PLATELET COUNT 149 K/MM3 (134-434); RBC 4.18 M/mm3 (4.00-5.60); WHITE BLOOD COUNT 5.6 K/mm3 (4.0-10.0)
[2019-01-01 07:05] LABS: BLOOD UREA NITROGEN 61.6 mg/dL (7-18); CALCIUM 9.2 mg/dL (8.5-10.1); CREATININE 2.3 mg/dL (0.55-1.3); POTASSIUM 4.2 mmol/L (3.5-5.1)
--- NOTE | 2019-01-01 09:54 | PN ---
Progress Note (short form) - Note Progress Note: 78 y/o male found sleeping in chair. Reports that he was unable to sleep last night due to SOB. Denies pain. Vital Signs Period Temp Pulse Resp BP Sys/Whitehead Pulse Ox Last 24 Hr 97.2 F-98.4 F 44-70 18-21 113-143/45-84 96-97 CBC, BMP 01/01/19 05:45 01/01/19 05:45 HEENT- NL Neck-Trachea Midline Lungs- CTAB Heart- S1/S2 Abd-Obese, soft, nt Ext- +1 B/L pitting edema Active Medications Acetaminophen (Tylenol -) 650 mg PO Q4H PRN PRN Reason: PAIN SCALE 1-8 Last Admin: 12/31/18 16:28 Dose: 650 mg Artificial Tears (Artificial Tears) 1 drop OU QID PRN PRN Reason: DRY EYES Aspirin (Ecotrin -) 162 mg PO DAILY [facility] Last Admin: 12/31/18 10:41 Dose: 162 mg Atorvastatin Calcium (Lipitor -) 40 mg PO HS [facility] Last Admin: 12/31/18 21:33 Dose: 40 mg Colchicine (Colcrys) 0.6 mg PO DAILY [facility] Last Admin: 12/31/18 10:41 Dose: 0.6 mg Furosemide (Lasix Injection -) 40 mg IVPUSH BID@0600,1400 [facility] Last Admin: 01/01/19 06:33 Dose: 40 mg Gabapentin (Neurontin -) 100 mg PO BID [facility] Last Admin: 12/31/18 21:33 Dose: 100 mg Insulin Aspart (Novolog Vial Sliding Scale -) 1 vial SQ [facility]; Protocol Last Admin: 01/01/19 06:33 Dose: Not Given Non-Formulary Medication (Insulin Degludec [Tresiba Flextouch U-100]) 70 unit SQ DAILY [facility] Spironolactone (Aldactone -) 25 mg PO DAILY [facility] Last Admin: 12/31/18 10:41 Dose: 25 mg Tamsulosin HCl (Flomax -) 0.4 mg PO BID [facility] Last Admin: 12/31/18 21:33 Dose: 0.4 mg #CHF Chest xray showed atelectasis lt base? Cont IV Lasix ASA/Statin #SOB O2 Prn #HTN Lasix/Aldactone Monitor BP #IDDM Monitor BG Gabapentin for neuropathy Novolog sliding scale #CKD Monitor Lytes Trend BUN/ creatinine Cont Lasix Appreciate Renal Problem List - Problems (1) CHF (congestive heart failure) Code(s): I50.9 - HEART FAILURE, UNSPECIFIED (2) Acute on chronic diastolic (congestive) heart failure Code(s): I50.33 - ACUTE ON CHRONIC DIASTOLIC (CONGESTIVE) HEART FAILURE (3) CHF exacerbation Code(s): I50.9 - HEART FAILURE, UNSPECIFIED (4) CKD (chronic kidney disease) Code(s): N18.9 - CHRONIC KIDNEY DISEASE, UNSPECIFIED (5) Diabetes Code(s): E11.9 - TYPE 2 DIABETES MELLITUS WITHOUT COMPLICATIONS Qualifiers: Diabetes mellitus meterman insulin use: with meterman use Diabetes mellitus complication detail: with unspecified neuropathy (6) Dizziness Code(s): R42 - DIZZINESS AND GIDDINESS (7) HTN (hypertension) Code(s): I10 - ESSENTIAL (PRIMARY) HYPERTENSION (8) Hyperlipidemia Code(s): E78.5 - HYPERLIPIDEMIA, UNSPECIFIED (9) Leg edema Code(s): R60.0 - LOCALIZED EDEMA (10) Morbid obesity Code(s): E66.01 - MORBID (SEVERE) OBESITY DUE TO EXCESS CALORIES (11) Musculoskeletal pain Code(s): M79.1 - MYALGIA * DO NOT USE *
[2019-01-01] MEDS: SPIRONOLACTONE 25 MG TABLET (FP) PO SCH (09:55)
[2019-01-01] MEDS: COLCHICINE 0.6 MG CAP PO SCH (09:55)
[2019-01-01] MEDS: GABAPENTIN 100 MG CAPSULE (FP) PO SCH ×2 (09:55→21:16)
[2019-01-01] MEDS: TAMSULOSIN HCL 0.4 MG CAP PO SCH ×2 (09:55→21:16)
[2019-01-01] MEDS: ASPIRIN COATED 81 MG TABLET.EC PO SCH (09:56)
--- NOTE | 2019-01-01 10:08 | PN ---
Progress Note, Physician Chief Complaint: feeling better less SOB Denies CP SOB Tele : NSR, 1st degree AVB, PVCs History of Present Illness: weight stable - Current Medication List Current Medications: Active Medications Acetaminophen (Tylenol -) 650 mg PO Q4H PRN PRN Reason: PAIN SCALE 1-8 Last Admin: 12/31/18 16:28 Dose: 650 mg Artificial Tears (Artificial Tears) 1 drop OU QID PRN PRN Reason: DRY EYES Aspirin (Ecotrin -) 162 mg PO DAILY [facility] Last Admin: 01/01/19 09:56 Dose: 162 mg Atorvastatin Calcium (Lipitor -) 40 mg PO HS [facility] Last Admin: 12/31/18 21:33 Dose: 40 mg Colchicine (Colcrys) 0.6 mg PO DAILY [facility] Last Admin: 01/01/19 09:55 Dose: 0.6 mg Furosemide (Lasix Injection -) 40 mg IVPUSH BID@0600,1400 [facility] Last Admin: 01/01/19 06:33 Dose: 40 mg Gabapentin (Neurontin -) 100 mg PO BID [facility] Last Admin: 01/01/19 09:55 Dose: 100 mg Insulin Aspart (Novolog Vial Sliding Scale -) 1 vial SQ [facility]; Protocol Last Admin: 01/01/19 06:33 Dose: Not Given Non-Formulary Medication (Insulin Degludec [Tresiba Flextouch U-100]) 70 unit SQ DAILY [facility] Spironolactone (Aldactone -) 25 mg PO DAILY [facility] Last Admin: 01/01/19 09:55 Dose: 25 mg Tamsulosin HCl (Flomax -) 0.4 mg PO BID [facility] Last Admin: 01/01/19 09:55 Dose: 0.4 mg - Objective Vital Signs: Vital Signs Temperature 98.1 F 01/01/19 02:00 Pulse Rate 62 01/01/19 06:00 Respiratory Rate 21 H 01/01/19 08:24 Blood Pressure 113/58 L 01/01/19 06:00 O2 Sat by Pulse Oximetry (%) 96 01/01/19 08:24 Constitutional: Yes: No Distress Cardiovascular: Yes: Regular Rate and Rhythm Respiratory: Yes: CTA Bilaterally Gastrointestinal: Yes: Soft, Abdomen, Obese Edema: Yes Edema: LLE: 2+, RLE: 2+ Neurological: Yes: Alert, Oriented Labs: CBC, BMP 01/01/19 05:45 01/01/19 05:45 INR, PTT INR 1.15 (0.83-1.09) H 12/30/18 11:29 - ....Imaging EKG: Image Reviewed Assessment/Plan a/p: 78 m hx cad, mi x2, cabg 2012, pci x2 2017, mobitz I, dchf, copd, dm, htn , hld, ckd here with sob, le edema. acute diastolic chf: -vol improving, cont iv lasix, daily wts, chem7. Still with LE edema. Creat stable -cont aldactone -echo TDS, EF cannot assess EF CKD: -cr near baseline, monitor with lasix cad: -stable, no signs acs -cont asa, statin -recent stress test with low risk findings, continue current medical management of cad. abnl ecg, jennifer 1: -chronic finding, stable htn: -cont current meds hld: -cont statin
[2019-01-01 13:12] VITALS: BMI 47.5
--- NOTE | 2019-01-01 13:27 | PN ---
Progress Note, Physician History of Present Illness: Pt seen and examined at bedside. He is awake and alert. He gets short of breath with activity. - Current Medication List Current Medications: Active Medications Acetaminophen (Tylenol -) 650 mg PO Q4H PRN PRN Reason: PAIN SCALE 1-8 Last Admin: 12/31/18 16:28 Dose: 650 mg Artificial Tears (Artificial Tears) 1 drop OU QID PRN PRN Reason: DRY EYES Aspirin (Ecotrin -) 162 mg PO DAILY [facility] Last Admin: 01/01/19 09:56 Dose: 162 mg Atorvastatin Calcium (Lipitor -) 40 mg PO HS [facility] Last Admin: 12/31/18 21:33 Dose: 40 mg Colchicine (Colcrys) 0.6 mg PO DAILY [facility] Last Admin: 01/01/19 09:55 Dose: 0.6 mg Furosemide (Lasix Injection -) 40 mg IVPUSH BID@0600,1400 [facility] Last Admin: 01/01/19 06:33 Dose: 40 mg Gabapentin (Neurontin -) 100 mg PO BID [facility] Last Admin: 01/01/19 09:55 Dose: 100 mg Insulin Aspart (Novolog Vial Sliding Scale -) 1 vial SQ [facility]; Protocol Last Admin: 01/01/19 11:16 Dose: 2 units Non-Formulary Medication (Insulin Degludec [Tresiba Flextouch U-100]) 70 unit SQ DAILY [facility] Spironolactone (Aldactone -) 25 mg PO DAILY [facility] Last Admin: 01/01/19 09:55 Dose: 25 mg Tamsulosin HCl (Flomax -) 0.4 mg PO BID [facility] Last Admin: 01/01/19 09:55 Dose: 0.4 mg - Objective Vital Signs: Vital Signs Temperature 98 F 01/01/19 10:00 Pulse Rate 68 01/01/19 10:00 Respiratory Rate 20 01/01/19 10:00 Blood Pressure 137/67 01/01/19 10:00 O2 Sat by Pulse Oximetry (%) 96 01/01/19 08:24 Constitutional: Yes: Calm Eyes: Yes: Conjunctiva Clear HENT: Yes: Atraumatic Neck: Yes: Supple Cardiovascular: Yes: S1, S2 Respiratory: Yes: CTA Bilaterally Gastrointestinal: Yes: Soft Genitourinary: Yes: WNL Musculoskeletal: Yes: WNL Edema: Yes Edema: LLE: 2+, RLE: 2+ Neurological: Yes: Oriented Psychiatric: Yes: Oriented Labs: CBC, BMP 01/01/19 05:45 01/01/19 05:45 INR, PTT INR 1.15 (0.83-1.09) H 12/30/18 11:29 Problem List - Problems (1) CHF (congestive heart failure) Code(s): I50.9 - HEART FAILURE, UNSPECIFIED (2) CKD (chronic kidney disease) Code(s): N18.9 - CHRONIC KIDNEY DISEASE, UNSPECIFIED Assessment/Plan Current Medications Generic Name Dose Route Start Last Admin Trade Name Freq PRN Reason Stop Dose Admin Acetaminophen 650 mg 12/31/18 15:32 12/31/18 16:28 Tylenol - PO 650 mg Q4H PRN Administration PAIN SCALE 1-8 Artificial Tears 1 drop 12/30/18 12:50 Artificial Tears OU QID PRN DRY EYES Aspirin 162 mg 12/31/18 10:00 01/01/19 09:56 Ecotrin - PO 162 mg DAILY [facility] Administration Atorvastatin Calcium 40 mg 12/30/18 22:00 12/31/18 21:33 Lipitor - PO 40 mg HS [facility] Administration Colchicine 0.6 mg 12/31/18 10:00 01/01/19 09:55 Colcrys PO 0.6 mg DAILY [facility] Administration Furosemide 40 mg 12/30/18 14:00 01/01/19 06:33 Lasix Injection - IVPUSH 40 mg BID@0600,1400 [facility] Administration Gabapentin 100 mg 12/30/18 22:00 01/01/19 09:55 Neurontin - PO 100 mg BID [facility] Administration Insulin Aspart 1 vial 12/30/18 16:30 01/01/19 11:16 Novolog Vial Sliding Scale - SQ 2 units ACHS [facility] Administration Protocol Non-Formulary Medication 70 unit 12/31/18 10:00 Insulin Degludec [Tresiba Flextouch U-100] SQ DAILY [facility] Spironolactone 25 mg 12/31/18 10:00 01/01/19 09:55 Aldactone - PO 25 mg DAILY [facility] Administration Tamsulosin HCl 0.4 mg 12/30/18 22:00 01/01/19 09:55 Flomax - PO 0.4 mg BID [facility] Administration Impression 1. CKD 2. CHF 3. DM 4. obesity 5. HTN 6. dyspnea 7. HLD 8. CAD s/p cabg 9. volume overload Plan - monitor renal function - cont iv lasix - monitor volume status - cardio input appreciated - monitor potassium as he is on aldactone
[2019-01-01] MEDS: ACETAMINOPHEN 325 MG TABLET (FP) PO PRN ×2 (14:16→19:43)
[2019-01-01] MEDS: ATORVASTATIN CA 40 MG TABLET (FP) PO SCH (21:16)
[2019-01-02] MEDS: FUROSEMIDE 40 MG/4 ML INJECTABLE VIAL IVPUSH SCH ×2 (06:41→13:37)
[2019-01-02] MEDS: INSULIN SLIDING SCALE (NOVOLOG) 1 VIAL SQ SCH ×4 (06:42→22:07)
[2019-01-02 07:10] LABS: BASO % 0.8 % (0-2.0); EOS % 2.5 % (0-4.5); HEMATOCRIT 36.1 % (35.4-49); HEMOGLOBIN 11.8 GM/dL (11.7-16.9); LYMPH % 20.6 % (8-40); MCH 27.9 pg (25.7-33.7); MCHC 32.6 g/dl (32.0-35.9); MEAN CELL VOLUME 85.6 fl (80-96); MONO % 7.6 % (3.8-10.2); NEUT % 68.5 % (42.8-82.8); PLATELET COUNT 153 K/MM3 (134-434); RBC 4.22 M/mm3 (4.00-5.60); RDW 18.7 % (11.9-15.9); WHITE BLOOD COUNT 5.3 K/mm3 (4.0-10.0)
[2019-01-02 07:38] LABS: BLOOD UREA NITROGEN 64.8 mg/dL (7-18); CALCIUM 9.1 mg/dL (8.5-10.1); CREATININE 2.3 mg/dL (0.55-1.3); POTASSIUM 4.3 mmol/L (3.5-5.1)
[2019-01-02] MEDS: COLCHICINE 0.6 MG CAP PO SCH (09:34)
[2019-01-02] MEDS: ASPIRIN COATED 81 MG TABLET.EC PO SCH (09:34)
[2019-01-02] MEDS: TAMSULOSIN HCL 0.4 MG CAP PO SCH ×2 (09:34→22:07)
[2019-01-02] MEDS: GABAPENTIN 100 MG CAPSULE (FP) PO SCH ×2 (09:35→22:06)
[2019-01-02] MEDS: SPIRONOLACTONE 25 MG TABLET (FP) PO SCH (09:35)
--- NOTE | 2019-01-02 09:51 | PN ---
Progress Note (short form) - Note Progress Note: RENAL pt is awake and alert c/o pain in right knee otherwise better Last Vital Signs Temp Pulse Resp BP Pulse Ox 98 F 74 18 149/71 97 01/02/19 05:51 01/02/19 05:51 01/02/19 08:40 01/02/19 05:51 01/02/19 08:40 lungs some crackles at bases cvs s1s2 rr abd soft ext +edema neuro a+ox3 CBC, BMP 01/02/19 06:03 01/02/19 06:03 Current Medications Generic Name Dose Route Start Last Admin Trade Name Freq PRN Reason Stop Dose Admin Acetaminophen 650 mg 12/31/18 15:32 01/01/19 19:43 Tylenol - PO 650 mg Q4H PRN Administration PAIN SCALE 1-8 Artificial Tears 1 drop 12/30/18 12:50 Artificial Tears OU QID PRN DRY EYES Aspirin 162 mg 12/31/18 10:00 01/02/19 09:34 Ecotrin - PO 162 mg DAILY [facility] Administration Atorvastatin Calcium 40 mg 12/30/18 22:00 01/01/19 21:16 Lipitor - PO 40 mg HS [facility] Administration Colchicine 0.6 mg 12/31/18 10:00 01/02/19 09:34 Colcrys PO 0.6 mg DAILY [facility] Administration Furosemide 40 mg 12/30/18 14:00 01/02/19 06:41 Lasix Injection - IVPUSH 40 mg BID@0600,1400 [facility] Administration Gabapentin 100 mg 12/30/18 22:00 01/02/19 09:35 Neurontin - PO 100 mg BID [facility] Administration Insulin Aspart 1 vial 12/30/18 16:30 01/02/19 06:42 Novolog Vial Sliding Scale - SQ Not Given ACHS [facility] Protocol Non-Formulary Medication 70 unit 12/31/18 10:00 Insulin Degludec [Tresiba Flextouch U-100] SQ DAILY [facility] Spironolactone 25 mg 12/31/18 10:00 01/02/19 09:35 Aldactone - PO 25 mg DAILY [facility] Administration Tamsulosin HCl 0.4 mg 12/30/18 22:00 01/02/19 09:34 Flomax - PO 0.4 mg BID [facility] Administration Impression 1. CKD 2. CHF 3. DM 4. obesity 5. HTN 6. dyspnea 7. HLD 8. CAD s/p cabg 9. volume overload Plan -would make no changes. Must use caution in use of spironolactone and colcrys -avoid nephrotoxins -diuresis necessary as he remains edematous and has crackles MV
--- NOTE | 2019-01-02 09:52 | PN ---
Progress Note, Physician Chief Complaint: sob History of Present Illness: still "a little" sob, not at baseline no cp, palpit, syncope not walking halls b/c knee pain - Current Medication List Current Medications: Active Medications Acetaminophen (Tylenol -) 650 mg PO Q4H PRN PRN Reason: PAIN SCALE 1-8 Last Admin: 01/01/19 19:43 Dose: 650 mg Artificial Tears (Artificial Tears) 1 drop OU QID PRN PRN Reason: DRY EYES Aspirin (Ecotrin -) 162 mg PO DAILY [facility] Last Admin: 01/02/19 09:34 Dose: 162 mg Atorvastatin Calcium (Lipitor -) 40 mg PO HS [facility] Last Admin: 01/01/19 21:16 Dose: 40 mg Colchicine (Colcrys) 0.6 mg PO DAILY [facility] Last Admin: 01/02/19 09:34 Dose: 0.6 mg Furosemide (Lasix Injection -) 40 mg IVPUSH BID@0600,1400 [facility] Last Admin: 01/02/19 06:41 Dose: 40 mg Gabapentin (Neurontin -) 100 mg PO BID [facility] Last Admin: 01/02/19 09:35 Dose: 100 mg Insulin Aspart (Novolog Vial Sliding Scale -) 1 vial SQ [facility]; Protocol Last Admin: 01/02/19 06:42 Dose: Not Given Non-Formulary Medication (Insulin Degludec [Tresiba Flextouch U-100]) 70 unit SQ DAILY [facility] Spironolactone (Aldactone -) 25 mg PO DAILY [facility] Last Admin: 01/02/19 09:35 Dose: 25 mg Tamsulosin HCl (Flomax -) 0.4 mg PO BID [facility] Last Admin: 01/02/19 09:34 Dose: 0.4 mg - Objective Vital Signs: Vital Signs Temperature 98 F 01/02/19 05:51 Pulse Rate 74 01/02/19 05:51 Respiratory Rate 18 01/02/19 08:40 Blood Pressure 149/71 01/02/19 05:51 O2 Sat by Pulse Oximetry (%) 97 01/02/19 08:40 Constitutional: Yes: Well Nourished, No Distress, Calm Cardiovascular: Yes: Regular Rate and Rhythm, S1, S2. No: JVD (in chair), Gallop, Murmur Respiratory: Yes: Regular, CTA Bilaterally. No: Accessory Muscle Use, Rales, Wheezes Extremities: No: Cold Edema: Yes (1+ ankles) Neurological: Yes: Alert, Oriented Psychiatric: No: Agitated Labs: CBC, BMP 01/02/19 06:03 01/02/19 06:03 INR, PTT INR 1.15 (0.83-1.09) H 12/30/18 11:29 Assessment/Plan echo 06/2017: mild dec lvef, nl rv, mild mr, mild-mod tr, rvsp 40-50, mild ar, mild pr echo 01/14: TDS--cannot assess LVEF. RV tds. mod-severe TR, no pulm HTN mibi 04/2018: mild apical ischemia not large territory. anterolateral scar, lvef 43 tele: poor baseline, artifact; SR with freq APCs/PVCs; long 1st degr AVB. no pauses. no AF suspected a/p: 78 m hx cad, mi x2, cabg 2012, pci x2 2017, mobitz I, dchf, copd, dm, htn , hld, ckd here with sob, le edema. acute mixed diastolic/systolic CHF (mid-range EF): -vol improving, wt down 5 lbs. remains sob not at baseline. creat stable (bun up slightly)--cont iv lasix 40 bid today -cont aldactone -target SBP < 130 -needs JOSH eval as outpt if not previously done (mod-hi suspicion) -echo TDS, EF cannot assess EF--rec outpatient echo for surveillance of LV and RV size and function in light of mod-severe TR reported (TR severity will likely improve with diuresis) CKD: -cr baseline range 2-2.5 -renal fxn at baseline here cad: -stable, no signs acs -cont asa, statin -recent stress test with low risk findings, continue current medical management of cad. abnl ecg, mobitz 1: -chronic finding, stable htn: -cont current meds hld: -cont statin
--- NOTE | 2019-01-02 10:47 | PN ---
Progress Note (short form) - Note Progress Note: seen and examined in room ambulating less edema to LE Vital Signs Period Temp Pulse Resp BP Sys/Whitehead Pulse Ox Last 24 Hr 97.6 F-98.3 F 44-74 18-20 137-149/55-83 96-97 neck suplle - jvd heart s1/S2 irreg lungs occ crackles at bases - otherwise clear abd soft obss rxt +1 edema / chronic changes 5 Lb weight loss since admission CBC, BMP 01/02/19 06:03 01/02/19 06:03 Active Medications Acetaminophen (Tylenol -) 650 mg PO Q4H PRN PRN Reason: PAIN SCALE 1-8 Last Admin: 01/01/19 19:43 Dose: 650 mg Artificial Tears (Artificial Tears) 1 drop OU QID PRN PRN Reason: DRY EYES Aspirin (Ecotrin -) 162 mg PO DAILY [facility] Last Admin: 01/02/19 09:34 Dose: 162 mg Atorvastatin Calcium (Lipitor -) 40 mg PO HS [facility] Last Admin: 01/01/19 21:16 Dose: 40 mg Colchicine (Colcrys) 0.6 mg PO DAILY [facility] Last Admin: 01/02/19 09:34 Dose: 0.6 mg Furosemide (Lasix Injection -) 40 mg IVPUSH BID@0600,1400 [facility] Last Admin: 01/02/19 06:41 Dose: 40 mg Gabapentin (Neurontin -) 100 mg PO BID [facility] Last Admin: 01/02/19 09:35 Dose: 100 mg Insulin Aspart (Novolog Vial Sliding Scale -) 1 vial SQ [facility]; Protocol Last Admin: 01/02/19 06:42 Dose: Not Given Non-Formulary Medication (Insulin Degludec [Tresiba Flextouch U-100]) 70 unit SQ DAILY [facility] Spironolactone (Aldactone -) 25 mg PO DAILY [facility] Last Admin: 01/02/19 09:35 Dose: 25 mg Tamsulosin HCl (Flomax -) 0.4 mg PO BID [facility] Last Admin: 01/02/19 09:34 Dose: 0.4 mg # CHF Chest xray showed atelectasis lt base? Cont IV Lasix / Cr at baseline - tolerating diuresis ASA/Statin # HTN defer ACEi due to renal function Lasix/Aldactone Monitor BP # IDDM Monitor BG Gabapentin for neuropathy Novolog sliding scale # CKD Monitor Lytes Trend BUN/ creatinine at baseline Cont Lasix Appreciate Renal Problem List - Problems (1) CHF (congestive heart failure) Code(s): I50.9 - HEART FAILURE, UNSPECIFIED (2) Acute on chronic diastolic (congestive) heart failure Code(s): I50.33 - ACUTE ON CHRONIC DIASTOLIC (CONGESTIVE) HEART FAILURE (3) CHF exacerbation Code(s): I50.9 - HEART FAILURE, UNSPECIFIED (4) CKD (chronic kidney disease) Code(s): N18.9 - CHRONIC KIDNEY DISEASE, UNSPECIFIED (5) Diabetes Code(s): E11.9 - TYPE 2 DIABETES MELLITUS WITHOUT COMPLICATIONS Qualifiers: Diabetes mellitus 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
[2019-01-02] MEDS: PANTOPRAZOLE 40 MG TABLET (FP) PO SCH (12:11)
[2019-01-02] MEDS: methylPREDNISolone NA SUCC 40 MG/1 ML VIAL IVPUSH SCH ×2 (12:11→17:37)
[2019-01-02] MEDS: ATORVASTATIN CA 40 MG TABLET (FP) PO SCH (22:06)
[2019-01-03] MEDS: methylPREDNISolone NA SUCC 40 MG/1 ML VIAL IVPUSH SCH ×3 (02:17→17:53)
[2019-01-03] MEDS: FUROSEMIDE 40 MG/4 ML INJECTABLE VIAL IVPUSH SCH (05:58)
[2019-01-03] MEDS: INSULIN SLIDING SCALE (NOVOLOG) 1 VIAL SQ SCH ×4 (05:59→21:39)
[2019-01-03 07:21] LABS: BLOOD UREA NITROGEN 73.2 mg/dL (7-18); CALCIUM 9.1 mg/dL (8.5-10.1); CREATININE 2.5 mg/dL (0.55-1.3); POTASSIUM 4.4 mmol/L (3.5-5.1)
--- NOTE | 2019-01-03 10:18 | PN ---
Progress Note, Physician Chief Complaint: sob History of Present Illness: breathing feels "normal", better than yest. no cp, palp, syncope no cigs - Current Medication List Current Medications: Active Medications Acetaminophen (Tylenol -) 650 mg PO Q4H PRN PRN Reason: PAIN SCALE 1-8 Last Admin: 01/01/19 19:43 Dose: 650 mg Artificial Tears (Artificial Tears) 1 drop OU QID PRN PRN Reason: DRY EYES Aspirin (Ecotrin -) 162 mg PO DAILY [facility] Last Admin: 01/02/19 09:34 Dose: 162 mg Atorvastatin Calcium (Lipitor -) 40 mg PO HS [facility] Last Admin: 01/02/19 22:06 Dose: 40 mg Colchicine (Colcrys) 0.6 mg PO DAILY [facility] Last Admin: 01/02/19 09:34 Dose: 0.6 mg Furosemide (Lasix Injection -) 40 mg IVPUSH BID@0600,1400 [facility] Last Admin: 01/03/19 05:58 Dose: 40 mg Gabapentin (Neurontin -) 100 mg PO BID [facility] Last Admin: 01/02/19 22:06 Dose: 100 mg Insulin Aspart (Novolog Vial Sliding Scale -) 1 vial SQ [facility]; Protocol Last Admin: 01/03/19 05:59 Dose: 4 units Methylprednisolone Sodium Succinate (Solu-Medrol -) 40 mg IVPUSH Q8H-IV [facility] Last Admin: 01/03/19 02:17 Dose: 40 mg Non-Formulary Medication (Insulin Degludec [Tresiba Flextouch U-100]) 70 unit SQ DAILY [facility] Pantoprazole Sodium (Protonix -) 40 mg PO DAILY [facility] Last Admin: 01/02/19 12:11 Dose: 40 mg Spironolactone (Aldactone -) 25 mg PO DAILY [facility] Last Admin: 01/02/19 09:35 Dose: 25 mg Tamsulosin HCl (Flomax -) 0.4 mg PO BID [facility] Last Admin: 01/02/19 22:07 Dose: 0.4 mg - Objective Vital Signs: Vital Signs Temperature 97.6 F 01/03/19 06:53 Pulse Rate 95 H 01/03/19 06:53 Respiratory Rate 20 01/03/19 06:53 Blood Pressure 148/76 01/03/19 06:53 O2 Sat by Pulse Oximetry (%) 99 01/02/19 21:00 Constitutional: Yes: No Distress, Calm, Obese Eyes: No: Sclera Icterus HENT: No: Nasal Congestion Cardiovascular: Yes: Pulse Irregular, S1, S2. No: JVD (in chair), Gallop, Murmur Respiratory: Yes: Regular, CTA Bilaterally. No: Accessory Muscle Use, Rales Gastrointestinal: Yes: Normal Bowel Sounds, Soft. No: Tenderness Musculoskeletal: Yes: Other (No kyphosis) Extremities: No: Cold Edema: Yes (1+ ankles) Integumentary: No: Jaundice Neurological: Yes: Alert, Oriented Psychiatric: No: Agitated Labs: CBC, BMP 01/02/19 06:03 01/03/19 05:40 INR, PTT INR 1.15 (0.83-1.09) H 12/30/18 11:29 Assessment/Plan echo 06/2017: mild dec lvef, nl rv, mild mr, mild-mod tr, rvsp 40-50, mild ar, mild pr echo 01/14: TDS--cannot assess LVEF. RV tds. mod-severe TR, no pulm HTN mibi 04/2018: mild apical ischemia not large territory. anterolateral scar, lvef 43 tele: SR with long UT, freq APCs/PVCs; no pauses. AIVR x 1 run. NSVT x 3b a/p: 78 m hx cad, mi x2, cabg 2013, pci x2 2017, mobitz I, dchf, copd, dm, htn , hld, ckd here with sob, le edema. acute mixed diastolic/systolic CHF (mid-range EF): -vol improving, wt continue to improve. sob resolved, mild pedal edema persists. bun (steroid effect?) and creat up today (creat at hi end of his baseline range). change lasix to po. was on 40 bid at home. would change to lasix 80 am, 40 pm -cont aldactone -target SBP < 130--above goals, reassess once off hi dose steroids -needs JOSH eval as outpt if not previously done (mod-hi suspicion) -echo TDS, EF cannot assess EF--rec outpatient echo for surveillance of LV and RV size and function in light of mod-severe TR reported (TR severity will likely improve with diuresis) CKD: -cr baseline range 2-2.5 -renal fxn at baseline here VTach, AIVR: -brief runs on tele -K/Mag >4/2--cont to monitor and replete prn cad: -stable, no signs acs -cont asa, statin -recent stress test with low risk findings, continue current medical management of cad. abnl ecg, mobitz 1: -chronic finding, stable htn: -cont current meds hld: -cont statin
[2019-01-03] MEDS: GABAPENTIN 100 MG CAPSULE (FP) PO SCH ×2 (10:27→21:34)
[2019-01-03] MEDS: SPIRONOLACTONE 25 MG TABLET (FP) PO SCH (10:27)
[2019-01-03] MEDS: COLCHICINE 0.6 MG CAP PO SCH (10:28)
[2019-01-03] MEDS: TAMSULOSIN HCL 0.4 MG CAP PO SCH ×2 (10:28→21:34)
[2019-01-03] MEDS: ASPIRIN COATED 81 MG TABLET.EC PO SCH (10:28)
[2019-01-03] MEDS: PANTOPRAZOLE 40 MG TABLET (FP) PO SCH (10:28)
[2019-01-03 10:39] LABS: MAGNESIUM 2.3 mg/dL (1.8-2.4)
[2019-01-03] MEDS: FUROSEMIDE 40 MG TABLET (FP) PO SCH ×2 (11:22→16:26)
--- NOTE | 2019-01-03 12:41 | PN ---
Progress Note (short form) - Note Progress Note: RENAL pt is awake and alert c/o pain in right knee otherwise better Last Vital Signs Temp Pulse Resp BP Pulse Ox 97.5 F L 79 20 120/60 99 01/03/19 11:00 01/03/19 11:00 01/03/19 11:00 01/03/19 11:00 01/03/19 09:00 lungs some crackles at [id number] rr abd soft ext +edema neuro a+ox3 CBC, BMP 01/02/19 06:03 01/03/19 05:40 Current Medications Generic Name Dose Route Start Last Admin Trade Name Freq PRN Reason Stop Dose Admin Acetaminophen 650 mg 12/31/18 15:32 01/01/19 19:43 Tylenol - PO 650 mg Q4H PRN Administration PAIN SCALE 1-8 Artificial Tears 1 drop 12/30/18 12:50 Artificial Tears OU QID PRN DRY EYES Aspirin 162 mg 12/31/18 10:00 01/03/19 10:28 Ecotrin - PO 162 mg DAILY [facility] Administration Atorvastatin Calcium 40 mg 12/30/18 22:00 01/02/19 22:06 Lipitor - PO 40 mg HS [facility] Administration Colchicine 0.6 mg 12/31/18 10:00 01/03/19 10:28 Colcrys PO 0.6 mg DAILY [facility] Administration Furosemide 80 mg 01/03/19 10:30 01/03/19 11:22 Lasix - PO 80 mg DAILY [facility] Administration Furosemide 40 mg 01/03/19 16:00 Lasix - PO DAILY [facility] Gabapentin 100 mg 12/30/18 22:00 01/03/19 10:27 Neurontin - PO 100 mg BID [facility] Administration Insulin Aspart 1 vial 12/30/18 16:30 01/03/19 12:14 Novolog Vial Sliding Scale - SQ 8 units ACHS [facility] Administration Protocol Methylprednisolone Sodium Succinate 40 mg 01/02/19 11:15 01/03/19 10:27 Solu-Medrol - IVPUSH 40 mg Q8H-IV [facility] Administration Pantoprazole Sodium 40 mg 01/02/19 11:15 01/03/19 10:28 Protonix - PO 40 mg DAILY [facility] Administration Spironolactone 25 mg 12/31/18 10:00 01/03/19 10:27 Aldactone - PO 25 mg DAILY [facility] Administration Tamsulosin HCl 0.4 mg 12/30/18 22:00 01/03/19 10:28 Flomax - PO 0.4 mg BID [facility] Administration Impression 1. CKD 2. CHF 3. DM 4. obesity 5. HTN 6. dyspnea 7. HLD 8. CAD s/p cabg 9. volume overload Plan -would make no changes. Must use caution in use of spironolactone and colcrys -avoid nephrotoxins would reduce lasix if creat continues to rise MV
[2019-01-03] MEDS: ACETAMINOPHEN 325 MG TABLET (FP) PO PRN (16:31)
[2019-01-03] MEDS: ATORVASTATIN CA 40 MG TABLET (FP) PO SCH (21:34)
--- NOTE | 2019-01-04 00:03 | PN ---
Progress Note (short form) - Note Progress Note: seen and examined in room ambulating less edema to LE less pain to knees this am on IV steroids Vital Signs Period Temp Pulse Resp BP Sys/Whitehead Pulse Ox Last 24 Hr 97.4 F-98.5 F 52-95 20-20 120-160/60-82 99-99 neck suplle - jvd heart s1/S2 irreg lungs clear abd soft obss rxt trace edema / chronic changes Lb weight loss since admission CBC, BMP 01/02/19 06:03 01/03/19 05:40 CBC, BMP 01/02/19 06:03 01/02/19 06:03 Active Medications Acetaminophen (Tylenol -) 650 mg PO Q4H PRN PRN Reason: PAIN SCALE 1-8 Last Admin: 01/03/19 16:31 Dose: 650 mg Artificial Tears (Artificial Tears) 1 drop OU QID PRN PRN Reason: DRY EYES Aspirin (Ecotrin -) 162 mg PO DAILY [facility] Last Admin: 01/03/19 10:28 Dose: 162 mg Atorvastatin Calcium (Lipitor -) 40 mg PO HS [facility] Last Admin: 01/03/19 21:34 Dose: 40 mg Colchicine (Colcrys) 0.6 mg PO DAILY [facility] Last Admin: 01/03/19 10:28 Dose: 0.6 mg Furosemide (Lasix -) 80 mg PO DAILY [facility] Last Admin: 01/03/19 11:22 Dose: 80 mg Furosemide (Lasix -) 40 mg PO DAILY [facility] Last Admin: 01/03/19 16:26 Dose: 40 mg Gabapentin (Neurontin -) 100 mg PO BID [facility] Last Admin: 01/03/19 21:34 Dose: 100 mg Insulin Aspart (Novolog Vial Sliding Scale -) 1 vial SQ ACHS [facility]; Protocol Last Admin: 01/03/19 21:39 Dose: 12 units Methylprednisolone Sodium Succinate (Solu-Medrol -) 40 mg IVPUSH Q8H-IV [facility] Last Admin: 01/03/19 17:53 Dose: 40 mg Pantoprazole Sodium (Protonix -) 40 mg PO DAILY [facility] Last Admin: 01/03/19 10:28 Dose: 40 mg Spironolactone (Aldactone -) 25 mg PO DAILY [facility] Last Admin: 01/03/19 10:27 Dose: 25 mg Tamsulosin HCl (Flomax -) 0.4 mg PO BID [facility] Last Admin: 01/03/19 21:34 Dose: 0.4 mg # CHF Cr slight inc today will hold lasix Chest xray showed atelectasis ASA/Statin/ aldactone # HTN Aldactone Monitor BP # IDDM Monitor BG Gabapentin for neuropathy Novolog sliding scale # CKD Monitor Lytes Trend BUN/ creatinine at baseline Cont Lasix Appreciate Renal # OA multiple areas of pain - bilat knees chronic back pain - stenosis improved on IV steroids Problem List - Problems (1) CHF (congestive heart failure) Code(s): I50.9 - HEART FAILURE, UNSPECIFIED (2) Acute on chronic diastolic (congestive) heart failure Code(s): I50.33 - ACUTE ON CHRONIC DIASTOLIC (CONGESTIVE) HEART FAILURE (3) CHF exacerbation Code(s): I50.9 - HEART FAILURE, UNSPECIFIED (4) CKD (chronic kidney disease) Code(s): N18.9 - CHRONIC KIDNEY DISEASE, UNSPECIFIED (5) Diabetes Code(s): E11.9 - TYPE 2 DIABETES MELLITUS WITHOUT COMPLICATIONS Qualifiers: Diabetes mellitus 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
[2019-01-04] MEDS: methylPREDNISolone NA SUCC 40 MG/1 ML VIAL IVPUSH SCH ×3 (01:36→19:16)
[2019-01-04] MEDS: INSULIN SLIDING SCALE (NOVOLOG) 1 VIAL SQ SCH ×4 (06:08→22:26)
[2019-01-04 06:50] LABS: BASO % 0.1 % (0-2.0); EOS % 0.1 % (0-4.5); HEMATOCRIT 37.7 % (35.4-49); HEMOGLOBIN 12.4 GM/dL (11.7-16.9); LYMPH % 5.6 % (8-40); MCH 28.1 pg (25.7-33.7); MCHC 32.8 g/dl (32.0-35.9); MEAN CELL VOLUME 85.6 fl (80-96); MEAN PLT VOLUME 9.4 fl (7.5-11.1); MONO % 1.9 % (3.8-10.2); NEUT % 92.3 % (42.8-82.8); PLATELET COUNT 132 K/MM3 (134-434); RDW 18.4 % (11.9-15.9); WHITE BLOOD COUNT 6.7 K/mm3 (4.0-10.0)
[2019-01-04 07:00] LABS: BLOOD UREA NITROGEN 83.9 mg/dL (7-18); CALCIUM 8.8 mg/dL (8.5-10.1); CREATININE 2.6 mg/dL (0.55-1.3); POTASSIUM 4.7 mmol/L (3.5-5.1)
[2019-01-04 10:19] LABS: ANISOCYTOSIS 0; MACROCYTOSIS 0; OVALOCYTE 1+; PLATELET ESTIMATE DECREASED
[2019-01-04] MEDS: SPIRONOLACTONE 25 MG TABLET (FP) PO SCH (10:19)
[2019-01-04] MEDS: TAMSULOSIN HCL 0.4 MG CAP PO SCH ×2 (10:20→21:50)
[2019-01-04] MEDS: GABAPENTIN 100 MG CAPSULE (FP) PO SCH ×2 (10:20→21:50)
[2019-01-04] MEDS: COLCHICINE 0.6 MG CAP PO SCH (10:20)
[2019-01-04] MEDS: ASPIRIN COATED 81 MG TABLET.EC PO SCH (10:20)
[2019-01-04] MEDS: PANTOPRAZOLE 40 MG TABLET (FP) PO SCH (10:20)
[2019-01-04] MEDS: FUROSEMIDE 40 MG TABLET (FP) PO SCH ×3 (10:23→16:50)
--- NOTE | 2019-01-04 10:40 | PN ---
Progress Note, Physician - Current Medication List Current Medications: Active Medications Acetaminophen (Tylenol -) 650 mg PO Q4H PRN PRN Reason: PAIN SCALE 1-8 Last Admin: 01/03/19 16:31 Dose: 650 mg Artificial Tears (Artificial Tears) 1 drop OU QID PRN PRN Reason: DRY EYES Aspirin (Ecotrin -) 162 mg PO DAILY [facility] Last Admin: 01/04/19 10:20 Dose: 162 mg Atorvastatin Calcium (Lipitor -) 40 mg PO HS [facility] Last Admin: 01/03/19 21:34 Dose: 40 mg Colchicine (Colcrys) 0.6 mg PO DAILY [facility] Last Admin: 01/04/19 10:20 Dose: 0.6 mg Furosemide (Lasix -) 80 mg PO DAILY [facility] Last Admin: 01/03/19 11:22 Dose: 80 mg Furosemide (Lasix -) 40 mg PO DAILY [facility] Last Admin: 01/04/19 10:23 Dose: 40 mg Gabapentin (Neurontin -) 100 mg PO BID [facility] Last Admin: 01/04/19 10:20 Dose: 100 mg Insulin Aspart (Novolog Vial Sliding Scale -) 1 vial SQ [facility]; Protocol Last Admin: 01/04/19 06:08 Dose: 4 units Methylprednisolone Sodium Succinate (Solu-Medrol -) 40 mg IVPUSH Q8H-IV [facility] Last Admin: 01/04/19 10:24 Dose: 40 mg Pantoprazole Sodium (Protonix -) 40 mg PO DAILY [facility] Last Admin: 01/04/19 10:20 Dose: 40 mg Spironolactone (Aldactone -) 25 mg PO DAILY [facility] Last Admin: 01/04/19 10:19 Dose: 25 mg Tamsulosin HCl (Flomax -) 0.4 mg PO BID [facility] Last Admin: 01/04/19 10:20 Dose: 0.4 mg - Objective Vital Signs: Vital Signs Temperature 97.7 F 01/04/19 09:00 Pulse Rate 75 01/04/19 09:00 Respiratory Rate 20 01/04/19 09:00 Blood Pressure 135/58 L 01/04/19 09:00 O2 Sat by Pulse Oximetry (%) 99 01/04/19 09:00 Labs: CBC, BMP 01/04/19 05:40 01/04/19 05:40 INR, PTT INR 1.15 (0.83-1.09) H 12/30/18 11:29 Assessment/Plan echo 06/2017: mild dec lvef, nl rv, mild mr, mild-mod tr, rvsp 40-50, mild ar, mild pr echo 01/14: TDS--cannot assess LVEF. RV tds. mod-severe TR, no pulm HTN mibi 04/2018: mild apical ischemia not large territory. anterolateral scar, lvef 43 tele: SR with long RI, freq APCs/PVCs; no pauses. AIVR x 1 run. NSVT x 3b a/p: 78 m hx cad, mi x2, cabg 2012, pci x2 2017, mobitz I, dchf, copd, dm, htn , hld, ckd here with sob, le edema. acute mixed diastolic/systolic CHF (mid-range EF): -01/03: vol improving, wt continue to improve. sob resolved, mild pedal edema persists. bun (steroid effect?) and creat up today (creat at hi end of his baseline range). changed lasix to po 80 am, 40 pm (was on 40 bid at home) -01/04: wt up 2 lbs, bun/creat up further -cont aldactone -target SBP < 130--above goals, reassess once off hi dose steroids -needs JOSH eval as outpt if not previously done (mod-hi suspicion) -echo TDS, EF cannot assess EF--rec outpatient echo for surveillance of LV and RV size and function in light of mod-severe TR reported (TR severity will likely improve with diuresis) CKD: -cr baseline range 2-2.5 -renal fxn at baseline here VTach, AIVR: -brief runs on tele -K/Mag >4/--cont to monitor and replete prn cad: -stable, no signs acs -cont asa, statin -recent stress test with low risk findings, continue current medical management of cad. abnl ecg, akiraitz 1: -chronic finding, stable htn: -cont current meds hld: -cont statin
--- NOTE | 2019-01-04 11:06 | PN ---
Progress Note (short form) - Note Progress Note: seen and examined in room ambulating less edema to LE less pain to knees this am on IV steroids will taper today Vital Signs Period Temp Pulse Resp BP Sys/Whitehead Pulse Ox Last 24 Hr 97.4 F-98.5 F 52-95 20-20 120-160/60-82 99-99 neck suplle - jvd heart s1/S2 irreg lungs clear abd soft obss rxt trace edema / chronic changes Lb weight loss since admission CBC, [facility] 01/04/19 05:40 01/04/19 05:40 CBC, [facility] 01/02/19 06:03 01/03/19 05:40 CBC, [facility] 01/02/19 06:03 01/02/19 06:03 Active Medications Acetaminophen (Tylenol -) 650 mg PO Q4H PRN PRN Reason: PAIN SCALE 1-8 Last Admin: 01/03/19 16:31 Dose: 650 mg Artificial Tears (Artificial Tears) 1 drop OU QID PRN PRN Reason: DRY EYES Aspirin (Ecotrin -) 162 mg PO DAILY [facility] Last Admin: 01/04/19 10:20 Dose: 162 mg Atorvastatin Calcium (Lipitor -) 40 mg PO HS [facility] Last Admin: 01/03/19 21:34 Dose: 40 mg Colchicine (Colcrys) 0.6 mg PO DAILY [facility] Last Admin: 01/04/19 10:20 Dose: 0.6 mg Furosemide (Lasix -) 80 mg PO DAILY [facility] Last Admin: 01/03/19 11:22 Dose: 80 mg Furosemide (Lasix -) 40 mg PO DAILY [facility] Last Admin: 01/04/19 10:23 Dose: 40 mg Gabapentin (Neurontin -) 100 mg PO BID [facility] Last Admin: 01/04/19 10:20 Dose: 100 mg Insulin Aspart (Novolog Vial Sliding Scale -) 1 vial SQ [facility]; Protocol Last Admin: 01/04/19 06:08 Dose: 4 units Methylprednisolone Sodium Succinate (Solu-Medrol -) 40 mg IVPUSH Q8H-IV [facility] Last Admin: 01/04/19 10:24 Dose: 40 mg Pantoprazole Sodium (Protonix -) 40 mg PO DAILY [facility] Last Admin: 01/04/19 10:20 Dose: 40 mg Spironolactone (Aldactone -) 25 mg PO DAILY [facility] Last Admin: 01/04/19 10:19 Dose: 25 mg Tamsulosin HCl (Flomax -) 0.4 mg PO BID [facility] Last Admin: 01/04/19 10:20 Dose: 0.4 mg # CHF Cr slight inc today will hold lasix Chest xray showed atelectasis ASA/Statin/ aldactone # HTN Aldactone Monitor BP # IDDM Monitor BG Gabapentin for neuropathy Novolog sliding scale # CKD Monitor Lytes Trend BUN/ creatinine at baseline Cont Lasix Appreciate Renal # OA multiple areas of pain - bilat knees chronic back pain - stenosis improved on IV steroids will taper today Problem List - Problems (1) CHF (congestive heart failure) Code(s): I50.9 - HEART FAILURE, UNSPECIFIED (2) Acute on chronic diastolic (congestive) heart failure Code(s): I50.33 - ACUTE ON CHRONIC DIASTOLIC (CONGESTIVE) HEART FAILURE (3) CHF exacerbation Code(s): I50.9 - HEART FAILURE, UNSPECIFIED (4) CKD (chronic kidney disease) Code(s): N18.9 - CHRONIC KIDNEY DISEASE, UNSPECIFIED (5) Diabetes Code(s): E11.9 - TYPE 2 DIABETES MELLITUS WITHOUT COMPLICATIONS Qualifiers: 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
--- NOTE | 2019-01-04 12:10 | PN ---
Progress Note, Physician History of Present Illness: Pt seen and examined at bedside. He still has lower ext edema. He gets shortness of breath when he ambulates in the hallway. - Current Medication List Current Medications: Active Medications Acetaminophen (Tylenol -) 650 mg PO Q4H PRN PRN Reason: PAIN SCALE 1-8 Last Admin: 01/03/19 16:31 Dose: 650 mg Artificial Tears (Artificial Tears) 1 drop OU QID PRN PRN Reason: DRY EYES Aspirin (Ecotrin -) 162 mg PO DAILY [facility] Last Admin: 01/04/19 10:20 Dose: 162 mg Atorvastatin Calcium (Lipitor -) 40 mg PO HS [facility] Last Admin: 01/03/19 21:34 Dose: 40 mg Colchicine (Colcrys) 0.6 mg PO DAILY [facility] Last Admin: 01/04/19 10:20 Dose: 0.6 mg Furosemide (Lasix -) 80 mg PO DAILY [facility] Last Admin: 01/03/19 11:22 Dose: 80 mg Furosemide (Lasix -) 40 mg PO DAILY@1600 [facility] Gabapentin (Neurontin -) 100 mg PO BID [facility] Last Admin: 01/04/19 10:20 Dose: 100 mg Insulin Aspart (Novolog Vial Sliding Scale -) 1 vial SQ [facility]; Protocol Last Admin: 01/04/19 06:08 Dose: 4 units Methylprednisolone Sodium Succinate (Solu-Medrol -) 40 mg IVPUSH Q8H-IV [facility] Last Admin: 01/04/19 10:24 Dose: 40 mg Pantoprazole Sodium (Protonix -) 40 mg PO DAILY [facility] Last Admin: 01/04/19 10:20 Dose: 40 mg Spironolactone (Aldactone -) 25 mg PO DAILY [facility] Last Admin: 01/04/19 10:19 Dose: 25 mg Tamsulosin HCl (Flomax -) 0.4 mg PO BID [facility] Last Admin: 01/04/19 10:20 Dose: 0.4 mg - Objective Vital Signs: Vital Signs Temperature 97.7 F 01/04/19 09:00 Pulse Rate 75 01/04/19 09:00 Respiratory Rate 20 01/04/19 09:00 Blood Pressure 135/58 L 01/04/19 09:00 O2 Sat by Pulse Oximetry (%) 99 01/04/19 09:00 Constitutional: Yes: Calm Eyes: Yes: Conjunctiva Clear HENT: Yes: Atraumatic Neck: Yes: Supple Cardiovascular: Yes: S1, S2 Respiratory: Yes: Rhonchi Gastrointestinal: Yes: Soft Genitourinary: Yes: WNL Musculoskeletal: Yes: WNL Edema: Yes Edema: LLE: 2+, RLE: 2+ Neurological: Yes: Oriented Psychiatric: Yes: Oriented Labs: CBC, BMP 01/04/19 05:40 01/04/19 05:40 INR, PTT INR 1.15 (0.83-1.09) H 12/30/18 11:29 Problem List - Problems (1) CHF (congestive heart failure) Code(s): I50.9 - HEART FAILURE, UNSPECIFIED (2) CKD (chronic kidney disease) Code(s): N18.9 - CHRONIC KIDNEY DISEASE, UNSPECIFIED Assessment/Plan Current Medications Generic Name Dose Route Start Last Admin Trade Name Freq PRN Reason Stop Dose Admin Acetaminophen 650 mg 12/31/18 15:32 01/03/19 16:31 Tylenol - PO 650 mg Q4H PRN Administration PAIN SCALE 1-8 Artificial Tears 1 drop 12/30/18 12:50 Artificial Tears OU QID PRN DRY EYES Aspirin 162 mg 12/31/18 10:00 01/04/19 10:20 Ecotrin - PO 162 mg DAILY [facility] Administration Atorvastatin Calcium 40 mg 12/30/18 22:00 01/03/19 21:34 Lipitor - PO 40 mg HS [facility] Administration Colchicine 0.6 mg 12/31/18 10:00 01/04/19 10:20 Colcrys PO 0.6 mg DAILY [facility] Administration Furosemide 80 mg 01/03/19 10:30 01/03/19 11:22 Lasix - PO 80 mg DAILY [facility] Administration Furosemide 40 mg 01/04/19 11:41 Lasix - PO DAILY@1600 [facility] Gabapentin 100 mg 12/30/18 22:00 01/04/19 10:20 Neurontin - PO 100 mg BID [facility] Administration Insulin Aspart 1 vial 12/30/18 16:30 01/04/19 06:08 Novolog Vial Sliding Scale - SQ 4 units ACHS [facility] Administration Protocol Methylprednisolone Sodium Succinate 40 mg 01/02/19 11:15 01/04/19 10:24 Solu-Medrol - IVPUSH 40 mg Q8H-IV [facility] Administration Pantoprazole Sodium 40 mg 01/02/19 11:15 01/04/19 10:20 Protonix - PO 40 mg DAILY [facility] Administration Spironolactone 25 mg 12/31/18 10:00 01/04/19 10:19 Aldactone - PO 25 mg DAILY [facility] Administration Tamsulosin HCl 0.4 mg 12/30/18 22:00 01/04/19 10:20 Flomax - PO 0.4 mg BID [facility] Administration Impression 1. CKD 2. CHF 3. DM 4. obesity 5. HTN 6. dyspnea 7. HLD 8. CAD s/p cabg 9. volume overload Plan - cont lasix, dose increased, monitor renal function - combination man is higher however pt is hypervolemic - monitor potassium closely - cont aldactone for now - cardio input appreciated
--- NOTE | 2019-01-04 16:01 | PN ---
Progress Note (short form) - Note Progress Note: s: no sob, palps, dizziness. still has edema Current Medications Acetaminophen (Tylenol -) 650 mg PO Q4H PRN PRN Reason: PAIN SCALE 1-8 Last Admin: 01/03/19 16:31 Dose: 650 mg Artificial Tears (Artificial Tears) 1 drop OU QID PRN PRN Reason: DRY EYES Aspirin (Ecotrin -) 162 mg PO DAILY [facility] Last Admin: 01/04/19 10:20 Dose: 162 mg Atorvastatin Calcium (Lipitor -) 40 mg PO HS [facility] Last Admin: 01/03/19 21:34 Dose: 40 mg Colchicine (Colcrys) 0.6 mg PO DAILY [facility] Last Admin: 01/04/19 10:20 Dose: 0.6 mg Furosemide (Lasix -) 80 mg PO DAILY [facility] Last Admin: 01/04/19 12:17 Dose: 80 mg Furosemide (Lasix -) 40 mg PO DAILY@1600 [facility] Gabapentin (Neurontin -) 100 mg PO BID [facility] Last Admin: 01/04/19 10:20 Dose: 100 mg Insulin Aspart (Novolog Vial Sliding Scale -) 1 vial SQ [facility]; Protocol Last Admin: 01/04/19 12:16 Dose: 12 units Methylprednisolone Sodium Succinate (Solu-Medrol -) 40 mg IVPUSH Q8H-IV [facility] Last Admin: 01/04/19 10:24 Dose: 40 mg Pantoprazole Sodium (Protonix -) 40 mg PO DAILY [facility] Last Admin: 01/04/19 10:20 Dose: 40 mg Spironolactone (Aldactone -) 25 mg PO DAILY [facility] Last Admin: 01/04/19 10:19 Dose: 25 mg Tamsulosin HCl (Flomax -) 0.4 mg PO BID [facility] Last Admin: 01/04/19 10:20 Dose: 0.4 mg Vital Signs Period Temp Pulse Resp BP Sys/Whitehead Pulse Ox Last 24 Hr 97.7 F-98.5 F 48-99 20-20 135-159/58-82 99-99 Constitutional: Yes: No Distress, Calm, Obese Eyes: No: Sclera Icterus HENT: No: Nasal Congestion Cardiovascular: Yes: Pulse Irregular, S1, S2. No: JVD (in chair), Gallop, Murmur Respiratory: Yes: Regular, CTA Bilaterally. No: Accessory Muscle Use, Rales Gastrointestinal: Yes: Normal Bowel Sounds, Soft. No: Tenderness Musculoskeletal: Yes: Other (No kyphosis) Extremities: No: Cold Edema: Yes (1+ ankles) Integumentary: No: Jaundice Neurological: Yes: Alert, Oriented Psychiatric: No: Agitated Assessment/Plan echo 06/2017: mild dec lvef, nl rv, mild mr, mild-mod tr, rvsp 40-50, mild ar, mild pr echo 01/14: TDS--cannot assess LVEF. RV tds. mod-severe TR, no pulm HTN mibi 04/2018: mild apical ischemia not large territory. anterolateral scar, lvef 43 tele: SR with long CO, freq APCs/PVCs; no pauses a/p: 78 m hx cad, mi x2, cabg 2012, pci x2 2017, mobitz I, dchf, copd, dm, htn , hld, ckd here with sob, le edema. acute mixed diastolic/systolic CHF (mid-range EF): -wt stable today. sob resolved, mild pedal edema persists. BUN/Cr rising today - cont PO lasix 80 mg AM, 40 mg PM - increased from home dose -cont aldactone -target SBP < 130--above goals, reassess once off hi dose steroids -needs JOSH eval as outpt if not previously done (mod-hi suspicion) -echo TDS, EF cannot assess EF--rec outpatient echo for surveillance of LV and RV size and function in light of mod-severe TR reported (TR severity will likely improve with diuresis) CKD: -cr baseline range 2-2.5 -renal fxn at baseline here VTach, AIVR: -brief runs on tele -K/Mag >4/2--cont to monitor and replete prn cad: -stable, no signs acs -cont asa, statin -recent stress test with low risk findings, continue current medical management of cad. abnl ecg, akiraitz 1: -chronic finding, stable htn: -cont current meds hld: -cont statin
[2019-01-04] MEDS ORDERED: INSULIN (NOVOLOG) ASPART 100 UNITS/ML 10ML VIAL SQ STA (17:13)
[2019-01-04] MEDS: ATORVASTATIN CA 40 MG TABLET (FP) PO SCH (21:50)
[2019-01-05] MEDS: methylPREDNISolone NA SUCC 40 MG/1 ML VIAL IVPUSH SCH ×3 (01:05→17:13)
[2019-01-05] MEDS: INSULIN SLIDING SCALE (NOVOLOG) 1 VIAL SQ SCH ×4 (06:23→22:35)
[2019-01-05 06:56] LABS: BASO % 0.1 % (0-2.0); HEMATOCRIT 37.8 % (35.4-49); HEMOGLOBIN 12.3 GM/dL (11.7-16.9); LYMPH % 4.7 % (8-40); MCH 27.7 pg (25.7-33.7); MCHC 32.4 g/dl (32.0-35.9); MEAN CELL VOLUME 85.5 fl (80-96); MEAN PLT VOLUME 9.4 fl (7.5-11.1); MONO % 1.8 % (3.8-10.2); NEUT % 93.4 % (42.8-82.8); PLATELET COUNT 135 K/MM3 (134-434); RBC 4.43 M/mm3 (4.00-5.60); RDW 18.4 % (11.9-15.9); WHITE BLOOD COUNT 6.7 K/mm3 (4.0-10.0)
[2019-01-05 07:16] LABS: BLOOD UREA NITROGEN 90.2 mg/dL (7-18); CALCIUM 8.7 mg/dL (8.5-10.1); CREATININE 2.5 mg/dL (0.55-1.3); POTASSIUM 4.5 mmol/L (3.5-5.1)
[2019-01-05] MEDS: GABAPENTIN 100 MG CAPSULE (FP) PO SCH ×2 (09:43→22:34)
[2019-01-05] MEDS: SPIRONOLACTONE 25 MG TABLET (FP) PO SCH (09:43)
[2019-01-05] MEDS: ASPIRIN COATED 81 MG TABLET.EC PO SCH (09:43)
[2019-01-05] MEDS: TAMSULOSIN HCL 0.4 MG CAP PO SCH ×2 (09:43→22:34)
[2019-01-05] MEDS: FUROSEMIDE 40 MG TABLET (FP) PO SCH ×2 (09:43→16:34)
[2019-01-05] MEDS: PANTOPRAZOLE 40 MG TABLET (FP) PO SCH (09:43)
[2019-01-05] MEDS: COLCHICINE 0.6 MG CAP PO SCH (09:43)
--- NOTE | 2019-01-05 11:22 | PN ---
Progress Note (short form) - Note Progress Note: s: no sob, palps, dizziness. edema improving Current Medications Acetaminophen (Tylenol -) 650 mg PO Q4H PRN PRN Reason: PAIN SCALE 1-8 Last Admin: 01/03/19 16:31 Dose: 650 mg Artificial Tears (Artificial Tears) 1 drop OU QID PRN PRN Reason: DRY EYES Aspirin (Ecotrin -) 162 mg PO DAILY [facility] Last Admin: 01/05/19 09:43 Dose: 162 mg Atorvastatin Calcium (Lipitor -) 40 mg PO HS [facility] Last Admin: 01/04/19 21:50 Dose: 40 mg Colchicine (Colcrys) 0.6 mg PO DAILY [facility] Last Admin: 01/05/19 09:43 Dose: 0.6 mg Furosemide (Lasix -) 80 mg PO DAILY [facility] Last Admin: 01/05/19 09:43 Dose: 80 mg Furosemide (Lasix -) 40 mg PO DAILY@1600 [facility] Last Admin: 01/04/19 16:50 Dose: 40 mg Gabapentin (Neurontin -) 100 mg PO BID [facility] Last Admin: 01/05/19 09:43 Dose: 100 mg Insulin Aspart (Novolog Vial Sliding Scale -) 1 vial SQ ACH[facility]; Protocol Last Admin: 01/05/19 06:23 Dose: 4 units Methylprednisolone Sodium Succinate (Solu-Medrol -) 40 mg IVPUSH Q8H-IV [facility] Last Admin: 01/05/19 09:43 Dose: 40 mg Pantoprazole Sodium (Protonix -) 40 mg PO DAILY [facility] Last Admin: 01/05/19 09:43 Dose: 40 mg Spironolactone (Aldactone -) 25 mg PO DAILY [facility] Last Admin: 01/05/19 09:43 Dose: 25 mg Tamsulosin HCl (Flomax -) 0.4 mg PO BID [facility] Last Admin: 01/05/19 09:43 Dose: 0.4 mg Vital Signs Period Temp Pulse Resp BP Sys/Whitehead Pulse Ox Last 24 Hr 97.2 F-98.5 F 46-106 20-20 136-163/64-78 98-99 Constitutional: Yes: No Distress, Calm, Obese Eyes: No: Sclera Icterus HENT: No: Nasal Congestion Cardiovascular: Yes: Pulse Irregular, S1, S2. No: JVD (in chair), Gallop, Murmur Respiratory: Yes: Regular, CTA Bilaterally. No: Accessory Muscle Use, Rales Gastrointestinal: Yes: Normal Bowel Sounds, Soft. No: Tenderness Musculoskeletal: Yes: Other (No kyphosis) Extremities: No: Cold Edema: Yes (1+ ankles) Integumentary: No: Jaundice Neurological: Yes: Alert, Oriented Psychiatric: No: Agitated Assessment/Plan echo 06/2017: mild dec lvef, nl rv, mild mr, mild-mod tr, rvsp 40-50, mild ar, mild pr echo 01/14: TDS--cannot assess LVEF. RV tds. mod-severe TR, no pulm HTN mibi 04/2018: mild apical ischemia not large territory. anterolateral scar, lvef 43 tele: SR with long NE, freq APCs/PVCs; no pauses a/p: 78 m hx cad, mi x2, cabg 2012, pci x2 2016, mobitz I, dchf, copd, dm, htn , hld, ckd here with sob, le edema. acute mixed diastolic/systolic CHF (mid-range EF): - cont PO lasix 80 mg AM, 40 mg PM - increased from home dose - weight down, Cr stable, continue -cont aldactone -target SBP < 130--above goals, reassess once off hi dose steroids -needs JOSH eval as outpt if not previously done (mod-hi suspicion) -echo TDS, EF cannot assess EF--rec outpatient echo for surveillance of LV and RV size and function in light of mod-severe TR reported (TR severity will likely improve with diuresis) CKD: -cr baseline range 2-2.5 -renal fxn at baseline here VTach, AIVR: -brief runs on tele -K/Mag >4/2--cont to monitor and replete prn cad: -stable, no signs acs -cont asa, statin -recent stress test with low risk findings, continue current medical management of cad. abnl ecg, mobitz 1: -chronic finding, stable htn: -cont current meds hld: -cont statin
--- NOTE | 2019-01-05 11:54 | PN ---
Progress Note, Physician History of Present Illness: Pt seen and examined at bedside. He is awake and alert. He feels that his breathing is a little better. - Current Medication List Current Medications: Active Medications Acetaminophen (Tylenol -) 650 mg PO Q4H PRN PRN Reason: PAIN SCALE 1-8 Last Admin: 01/03/19 16:31 Dose: 650 mg Artificial Tears (Artificial Tears) 1 drop OU QID PRN PRN Reason: DRY EYES Aspirin (Ecotrin -) 162 mg PO DAILY [facility] Last Admin: 01/05/19 09:43 Dose: 162 mg Atorvastatin Calcium (Lipitor -) 40 mg PO HS [facility] Last Admin: 01/04/19 21:50 Dose: 40 mg Colchicine (Colcrys) 0.6 mg PO DAILY [facility] Last Admin: 01/05/19 09:43 Dose: 0.6 mg Furosemide (Lasix -) 80 mg PO DAILY [facility] Last Admin: 01/05/19 09:43 Dose: 80 mg Furosemide (Lasix -) 40 mg PO DAILY@1600 [facility] Last Admin: 01/04/19 16:50 Dose: 40 mg Gabapentin (Neurontin -) 100 mg PO BID [facility] Last Admin: 01/05/19 09:43 Dose: 100 mg Insulin Aspart (Novolog Vial Sliding Scale -) 1 vial SQ ACHS [facility]; Protocol Last Admin: 01/05/19 06:23 Dose: 4 units Methylprednisolone Sodium Succinate (Solu-Medrol -) 40 mg IVPUSH Q8H-IV [facility] Last Admin: 01/05/19 09:43 Dose: 40 mg Pantoprazole Sodium (Protonix -) 40 mg PO DAILY [facility] Last Admin: 01/05/19 09:43 Dose: 40 mg Spironolactone (Aldactone -) 25 mg PO DAILY [facility] Last Admin: 01/05/19 09:43 Dose: 25 mg Tamsulosin HCl (Flomax -) 0.4 mg PO BID [facility] Last Admin: 01/05/19 09:43 Dose: 0.4 mg - Objective Vital Signs: Vital Signs Temperature 97.8 F 01/05/19 10:00 Pulse Rate 54 L 01/05/19 10:00 Respiratory Rate 20 01/05/19 10:00 Blood Pressure 143/71 01/05/19 10:00 O2 Sat by Pulse Oximetry (%) 98 01/05/19 09:00 Constitutional: Yes: Calm Eyes: Yes: Conjunctiva Clear HENT: Yes: Atraumatic Neck: Yes: Supple Cardiovascular: Yes: S1, S2 Respiratory: Yes: CTA Bilaterally Gastrointestinal: Yes: Soft Genitourinary: Yes: WNL Musculoskeletal: Yes: WNL Edema: Yes (improving) Edema: LLE: 1+, RLE: 1+ Integumentary: Yes: Venous Stasis Changes Neurological: Yes: Oriented Psychiatric: Yes: Oriented Labs: CBC, BMP 01/05/19 06:05 01/05/19 06:05 INR, PTT INR 1.15 (0.83-1.09) H 12/30/18 11:29 Problem List - Problems (1) CHF (congestive heart failure) Code(s): I50.9 - HEART FAILURE, UNSPECIFIED (2) CKD (chronic kidney disease) Code(s): N18.9 - CHRONIC KIDNEY DISEASE, UNSPECIFIED Assessment/Plan Current Medications Generic Name Dose Route Start Last Admin Trade Name Freq PRN Reason Stop Dose Admin Acetaminophen 650 mg 12/31/18 15:32 01/03/19 16:31 Tylenol - PO 650 mg Q4H PRN Administration PAIN SCALE 1-8 Artificial Tears 1 drop 12/30/18 12:50 Artificial Tears OU QID PRN DRY EYES Aspirin 162 mg 12/31/18 10:00 01/05/19 09:43 Ecotrin - PO 162 mg DAILY [facility] Administration Atorvastatin Calcium 40 mg 12/30/18 22:00 01/04/19 21:50 Lipitor - PO 40 mg HS [facility] Administration Colchicine 0.6 mg 12/31/18 10:00 01/05/19 09:43 Colcrys PO 0.6 mg DAILY [facility] Administration Furosemide 80 mg 01/03/19 10:30 01/05/19 09:43 Lasix - PO 80 mg DAILY [facility] Administration Furosemide 40 mg 01/04/19 11:41 01/04/19 16:50 Lasix - PO 40 mg DAILY@1600 [facility] Administration Gabapentin 100 mg 12/30/18 22:00 01/05/19 09:43 Neurontin - PO 100 mg BID [facility] Administration Insulin Aspart 1 vial 12/30/18 16:30 01/05/19 06:23 Novolog Vial Sliding Scale - SQ 4 units ACHS [facility] Administration Protocol Methylprednisolone Sodium Succinate 40 mg 01/02/19 11:15 01/05/19 09:43 Solu-Medrol - IVPUSH 40 mg Q8H-IV [facility] Administration Pantoprazole Sodium 40 mg 01/02/19 11:15 01/05/19 09:43 Protonix - PO 40 mg DAILY [facility] Administration Spironolactone 25 mg 12/31/18 10:00 01/05/19 09:43 Aldactone - PO 25 mg DAILY [facility] Administration Tamsulosin HCl 0.4 mg 12/30/18 22:00 01/05/19 09:43 Flomax - PO 0.4 mg BID [facility] Administration Impression 1. CKD 2. CHF 3. DM 4. obesity 5. HTN 6. dyspnea 7. HLD 8. CAD s/p cabg 9. volume overload Plan - renal function stable - cont lasix at current dosing - cont aldactone - monitor potassium - will see in office
[2019-01-05] MEDS ORDERED: INSULIN (NOVOLOG) ASPART 100 UNITS/ML 10ML VIAL ONE (12:18)
[2019-01-05 12:23] LABS: ANISOCYTOSIS 0; MACROCYTOSIS 0; PLATELET ESTIMATE DECREASED
[2019-01-05] MEDS ORDERED: INSULIN (NOVOLOG) ASPART 100 UNITS/ML 10ML VIAL SQ ONE (19:15)
[2019-01-05] MEDS: ATORVASTATIN CA 40 MG TABLET (FP) PO SCH (22:34)
--- NOTE | 2019-01-06 00:35 | PN ---
Progress Note (short form) - Note Progress Note: seen and examined in room ambulating less edema to LE less pain to knees this am on IV steroids will d/c multiple reading of INC bs 2/2 steroids Vital Signs Period Temp Pulse Resp BP Sys/Whitehead Pulse Ox Last 24 Hr 97 F-98.7 F 44-71 20-20 138-146/59-78 98 neck suplle - jvd heart s1/S2 irreg lungs clear abd soft obss rxt trace edema / chronic changes Lb weight loss since admission CBC, BMP 01/05/19 06:05 01/05/19 18:20 CBC, BMP 01/02/19 06:03 01/02/19 06:03 Active Medications Acetaminophen (Tylenol -) 650 mg PO Q4H PRN PRN Reason: PAIN SCALE 1-8 Last Admin: 01/03/19 16:31 Dose: 650 mg Artificial Tears (Artificial Tears) 1 drop OU QID PRN PRN Reason: DRY EYES Aspirin (Ecotrin -) 162 mg PO DAILY [facility] Last Admin: 01/05/19 09:43 Dose: 162 mg Atorvastatin Calcium (Lipitor -) 40 mg PO HS [facility] Last Admin: 01/05/19 22:34 Dose: 40 mg Colchicine (Colcrys) 0.6 mg PO DAILY [facility] Last Admin: 01/05/19 09:43 Dose: 0.6 mg Furosemide (Lasix -) 80 mg PO DAILY [facility] Last Admin: 01/05/19 09:43 Dose: 80 mg Furosemide (Lasix -) 40 mg PO DAILY@1600 [facility] Last Admin: 01/05/19 16:34 Dose: 40 mg Gabapentin (Neurontin -) 100 mg PO BID [facility] Last Admin: 01/05/19 22:34 Dose: 100 mg Insulin Aspart (Novolog Vial Sliding Scale -) 1 vial SQ ACHS [facility]; Protocol Last Admin: 01/05/19 22:35 Dose: 16 units Pantoprazole Sodium (Protonix -) 40 mg PO DAILY [facility] Last Admin: 01/05/19 09:43 Dose: 40 mg Spironolactone (Aldactone -) 25 mg PO DAILY [facility] Last Admin: 01/05/19 09:43 Dose: 25 mg Tamsulosin HCl (Flomax -) 0.4 mg PO BID [facility] Last Admin: 01/05/19 22:34 Dose: 0.4 mg # CHF Cr returning to baseline Chest xray showed atelectasis ASA/Statin/ aldactone # HTN Aldactone Monitor BP # IDDM Monitor BG Gabapentin for neuropathy Novolog sliding scale # CKD Monitor Lytes Trend BUN/ creatinine at baseline Cont Lasix Appreciate Renal # OA multiple areas of pain - bilat knees chronic back pain - stenosis improved on IV steroids - d/c today # DM poor contolled due to IV steroids will monitor after d/c steroids Problem List - Problems (1) CHF (congestive heart failure) Code(s): I50.9 - HEART FAILURE, UNSPECIFIED (2) Acute on chronic diastolic (congestive) heart failure Code(s): I50.33 - ACUTE ON CHRONIC DIASTOLIC (CONGESTIVE) HEART FAILURE (3) CHF exacerbation Code(s): I50.9 - HEART FAILURE, UNSPECIFIED (4) CKD (chronic kidney disease) Code(s): N18.9 - CHRONIC KIDNEY DISEASE, UNSPECIFIED (5) Diabetes Code(s): E11.9 - TYPE 2 DIABETES MELLITUS WITHOUT COMPLICATIONS Qualifiers: Diabetes mellitus senior care insulin use: with exterminator use Diabetes mellitus complication detail: with unspecified neuropathy (6) Dizziness Code(s): R42 - DIZZINESS AND GIDDINESS (7) HTN (hypertension) Code(s): I10 - ESSENTIAL (PRIMARY) HYPERTENSION (8) Hyperlipidemia Code(s): E78.5 - HYPERLIPIDEMIA, UNSPECIFIED (9) Leg edema Code(s): R60.0 - LOCALIZED EDEMA (10) Morbid obesity Code(s): E66.01 - MORBID (SEVERE) OBESITY DUE TO EXCESS CALORIES (11) Musculoskeletal pain Code(s): M79.1 - MYALGIA * DO NOT USE *
[2019-01-06 07:58] LABS: BASO % 0.3 % (0-2.0); HEMATOCRIT 40.5 % (35.4-49); HEMOGLOBIN 13.2 GM/dL (11.7-16.9); LYMPH % 5.5 % (8-40); MCH 27.5 pg (25.7-33.7); MCHC 32.6 g/dl (32.0-35.9); MEAN CELL VOLUME 84.4 fl (80-96); MEAN PLT VOLUME 9.4 fl (7.5-11.1); MONO % 7.2 % (3.8-10.2); PLATELET COUNT 151 K/MM3 (134-434); RDW 18.5 % (11.9-15.9); WHITE BLOOD COUNT 8.2 K/mm3 (4.0-10.0)
[2019-01-06 08:21] LABS: BLOOD UREA NITROGEN 88.6 mg/dL (7-18); CREATININE 2.6 mg/dL (0.55-1.3); POTASSIUM 4.3 mmol/L (3.5-5.1)
[2019-01-06] MEDS: COLCHICINE 0.6 MG CAP PO SCH (09:44)
[2019-01-06] MEDS: TAMSULOSIN HCL 0.4 MG CAP PO SCH ×2 (09:44→21:32)
[2019-01-06] MEDS: FUROSEMIDE 40 MG TABLET (FP) PO SCH ×2 (09:44→18:05)
[2019-01-06] MEDS: GABAPENTIN 100 MG CAPSULE (FP) PO SCH ×2 (09:44→21:32)
[2019-01-06] MEDS: SPIRONOLACTONE 25 MG TABLET (FP) PO SCH (09:44)
[2019-01-06] MEDS: PANTOPRAZOLE 40 MG TABLET (FP) PO SCH (09:44)
[2019-01-06] MEDS: ASPIRIN COATED 81 MG TABLET.EC PO SCH (09:44)
--- NOTE | 2019-01-06 11:06 | PN ---
Progress Note, Physician History of Present Illness: Pt seen and examined at bedside. He is awake and alert. He feels that his breathing is improved. - Current Medication List Current Medications: Active Medications Acetaminophen (Tylenol -) 650 mg PO Q4H PRN PRN Reason: PAIN SCALE 1-8 Last Admin: 01/03/19 16:31 Dose: 650 mg Artificial Tears (Artificial Tears) 1 drop OU QID PRN PRN Reason: DRY EYES Aspirin (Ecotrin -) 162 mg PO DAILY [facility] Last Admin: 01/06/19 09:44 Dose: 162 mg Atorvastatin Calcium (Lipitor -) 40 mg PO HS [facility] Last Admin: 01/05/19 22:34 Dose: 40 mg Colchicine (Colcrys) 0.6 mg PO DAILY [facility] Last Admin: 01/06/19 09:44 Dose: 0.6 mg Furosemide (Lasix -) 80 mg PO DAILY [facility] Last Admin: 01/06/19 09:44 Dose: 80 mg Furosemide (Lasix -) 40 mg PO DAILY@1600 [facility] Last Admin: 01/05/19 16:34 Dose: 40 mg Gabapentin (Neurontin -) 100 mg PO BID [facility] Last Admin: 01/06/19 09:44 Dose: 100 mg Insulin Aspart (Novolog Vial Sliding Scale -) 1 vial SQ ACHS [facility]; Protocol Last Admin: 01/05/19 22:35 Dose: 16 units Pantoprazole Sodium (Protonix -) 40 mg PO DAILY [facility] Last Admin: 01/06/19 09:44 Dose: 40 mg Spironolactone (Aldactone -) 25 mg PO DAILY [facility] Last Admin: 01/06/19 09:44 Dose: 25 mg Tamsulosin HCl (Flomax -) 0.4 mg PO BID [facility] Last Admin: 01/06/19 09:44 Dose: 0.4 mg - Objective Vital Signs: Vital Signs Temperature 97.8 F 01/06/19 10:00 Pulse Rate 88 01/06/19 10:00 Respiratory Rate 20 01/06/19 10:00 Blood Pressure 112/42 L 01/06/19 10:00 O2 Sat by Pulse Oximetry (%) 98 01/05/19 21:00 Constitutional: Yes: Calm Eyes: Yes: Conjunctiva Clear HENT: Yes: Atraumatic Neck: Yes: Supple Cardiovascular: Yes: S1, S2 Respiratory: Yes: CTA Bilaterally Gastrointestinal: Yes: Soft, Abdomen, Obese Genitourinary: Yes: WNL Musculoskeletal: Yes: WNL Edema: Yes (improved) Edema: LLE: 1+, RLE: 1+ Neurological: Yes: Oriented Psychiatric: Yes: Oriented Labs: CBC, BMP 01/06/19 07:40 01/06/19 07:40 INR, PTT INR 1.15 (0.83-1.09) H 12/30/18 11:29 Problem List - Problems (1) CHF (congestive heart failure) Code(s): I50.9 - HEART FAILURE, UNSPECIFIED (2) CKD (chronic kidney disease) Code(s): N18.9 - CHRONIC KIDNEY DISEASE, UNSPECIFIED Assessment/Plan Current Medications Generic Name Dose Route Start Last Admin Trade Name Freq PRN Reason Stop Dose Admin Acetaminophen 650 mg 12/31/18 15:32 01/03/19 16:31 Tylenol - PO 650 mg Q4H PRN Administration PAIN SCALE 1-8 Artificial Tears 1 drop 12/30/18 12:50 Artificial Tears OU QID PRN DRY EYES Aspirin 162 mg 12/31/18 10:00 01/06/19 09:44 Ecotrin - PO 162 mg DAILY [facility] Administration Atorvastatin Calcium 40 mg 12/30/18 22:00 01/05/19 22:34 Lipitor - PO 40 mg HS [facility]ENN[facility]ER Administration Colchicine 0.6 mg 12/31/18 10:00 01/06/19 09:44 Colcrys PO 0.6 mg DAILY [facility] Administration Furosemide 80 mg 01/03/19 10:30 01/06/19 09:44 Lasix - PO 80 mg DAILY [facility] Administration Furosemide 40 mg 01/04/19 11:41 01/05/19 16:34 Lasix - PO 40 mg DAILY@1600 JENN[facility]ER Administration Gabapentin 100 mg 12/30/18 22:00 01/06/19 09:44 Neurontin - PO 100 mg BID [facility]ENN[facility]ER Administration Insulin Aspart 1 vial 12/30/18 16:30 01/05/19 22:35 Novolog Vial Sliding Scale - SQ 16 units ACHS JENN[facility]ER Administration Protocol Pantoprazole Sodium 40 mg 01/02/19 11:15 01/06/19 09:44 Protonix - PO 40 mg DAILY [facility] Administration Spironolactone 25 mg 12/31/18 10:00 01/06/19 09:44 Aldactone - PO 25 mg DAILY [facility] Administration Tamsulosin HCl 0.4 mg 12/30/18 22:00 01/06/19 09:44 Flomax - PO 0.4 mg BID [facility] Administration Impression 1. CKD 2. CHF 3. DM 4. obesity 5. HTN 6. dyspnea 7. HLD 8. CAD s/p cabg 9. volume overload Plan - volume status is improving - cont diuretics - monitor renal funciton - will need outpt follow up - 2 gram sodium diet - monitor potassium - will see in office
--- NOTE | 2019-01-06 11:56 | PN ---
Progress Note (short form) - Note Progress Note: s: no sob, palps, dizziness. edema improving Current Medications Acetaminophen (Tylenol -) 650 mg PO Q4H PRN PRN Reason: PAIN SCALE 1-8 Last Admin: 01/03/19 16:31 Dose: 650 mg Artificial Tears (Artificial Tears) 1 drop OU QID PRN PRN Reason: DRY EYES Aspirin (Ecotrin -) 162 mg PO DAILY [facility] Last Admin: 01/06/19 09:44 Dose: 162 mg Atorvastatin Calcium (Lipitor -) 40 mg PO HS [facility] Last Admin: 01/05/19 22:34 Dose: 40 mg Colchicine (Colcrys) 0.6 mg PO DAILY [facility] Last Admin: 01/06/19 09:44 Dose: 0.6 mg Furosemide (Lasix -) 80 mg PO DAILY [facility] Last Admin: 01/06/19 09:44 Dose: 80 mg Furosemide (Lasix -) 40 mg PO DAILY@1600 [facility] Last Admin: 01/05/19 16:34 Dose: 40 mg Gabapentin (Neurontin -) 100 mg PO BID [facility] Last Admin: 01/06/19 09:44 Dose: 100 mg Insulin Aspart (Novolog Vial Sliding Scale -) 1 vial SQ ACHS [facility]; Protocol Last Admin: 01/05/19 22:35 Dose: 16 units Pantoprazole Sodium (Protonix -) 40 mg PO DAILY [facility] Last Admin: 01/06/19 09:44 Dose: 40 mg Spironolactone (Aldactone -) 25 mg PO DAILY [facility] Last Admin: 01/06/19 09:44 Dose: 25 mg Tamsulosin HCl (Flomax -) 0.4 mg PO BID [facility] Last Admin: 01/06/19 09:44 Dose: 0.4 mg Vital Signs Period Temp Pulse Resp BP Sys/Whitehead Pulse Ox Last 24 Hr 97 F-98.7 F 44-88 20-20 112-146/42-71 98 Constitutional: Yes: No Distress, Calm, Obese Eyes: No: Sclera Icterus HENT: No: Nasal Congestion Cardiovascular: Yes: Pulse Irregular, S1, S2. No: JVD (in chair), Gallop, Murmur Respiratory: Yes: Regular, CTA Bilaterally. No: Accessory Muscle Use, Rales Gastrointestinal: Yes: Normal Bowel Sounds, Soft. No: Tenderness Musculoskeletal: Yes: Other (No kyphosis) Extremities: No: Cold Edema: Yes (1+ ankles) Integumentary: No: Jaundice Neurological: Yes: Alert, Oriented Psychiatric: No: Agitated Assessment/Plan echo 06/2017: mild dec lvef, nl rv, mild mr, mild-mod tr, rvsp 40-50, mild ar, mild pr echo 01/14: TDS--cannot assess LVEF. RV tds. mod-severe TR, no pulm HTN mibi 04/2018: mild apical ischemia not large territory. anterolateral scar, lvef 43 tele: SR with long AK, freq APCs/PVCs; no pauses a/p: 78 m hx cad, mi x2, cabg 2012, pci x2 2017, mobitz I, dchf, copd, dm, htn , hld, ckd here with sob, le edema. acute mixed diastolic/systolic CHF (mid-range EF): - cont PO lasix 80 mg AM, 40 mg PM - increased from home dose - weight and Cr stable, continue -cont aldactone -target SBP < 130--above goals, reassess once off hi dose steroids -needs JOSH eval as outpt if not previously done (mod-hi suspicion) -echo TDS, EF cannot assess EF--rec outpatient echo for surveillance of LV and RV size and function in light of mod-severe TR reported (TR severity will likely improve with diuresis) CKD: -cr baseline range 2-2.5 -renal fxn at baseline here VTach, AIVR: -brief runs on tele -K/Mag >4/2--cont to monitor and replete prn cad: -stable, no signs acs -cont asa, statin -recent stress test with low risk findings, continue current medical management of cad. abnl ecg, mobitz 1: -chronic finding, stable htn: -cont current meds hld: -cont statin
[2019-01-06] MEDS: ACETAMINOPHEN 325 MG TABLET (FP) PO PRN (12:50)
[2019-01-06] MEDS: INSULIN SLIDING SCALE (NOVOLOG) 1 VIAL SQ SCH ×3 (12:50→21:33)
[2019-01-06] MEDS: ATORVASTATIN CA 40 MG TABLET (FP) PO SCH (21:32)
--- NOTE | 2019-01-06 23:38 | PN ---
Progress Note (short form) - Note Progress Note: seen and examined in [facility] feeling much better less SOB less joint pain Vital Signs Period Temp Pulse Resp BP Sys/Whitehead Pulse Ox Last 24 Hr 97.5 F-97.9 F 51-88 20-20 112-145/42-67 97-97 neck suplle - jvd heart s1/S2 irreg lungs clear abd soft obss rxt no edema / chronic changes weight loss since admission CBC, BMP 01/06/19 07:40 01/06/19 07:40 CBC, BMP 01/02/19 06:03 01/02/19 06:03 Active Medications Acetaminophen (Tylenol -) 650 mg PO Q4H PRN PRN Reason: PAIN SCALE 1-8 Last Admin: 01/06/19 12:50 Dose: 650 mg Artificial Tears (Artificial Tears) 1 drop OU QID PRN PRN Reason: DRY EYES Aspirin (Ecotrin -) 162 mg PO DAILY [facility] Last Admin: 01/06/19 09:44 Dose: 162 mg Atorvastatin Calcium (Lipitor -) 40 mg PO HS [facility] Last Admin: 01/06/19 21:32 Dose: 40 mg Colchicine (Colcrys) 0.6 mg PO DAILY [facility] Last Admin: 01/06/19 09:44 Dose: 0.6 mg Furosemide (Lasix -) 80 mg PO DAILY [facility] Last Admin: 01/06/19 09:44 Dose: 80 mg Furosemide (Lasix -) 40 mg PO DAILY@1600 [facility] Last Admin: 01/06/19 18:05 Dose: 40 mg Gabapentin (Neurontin -) 100 mg PO BID [facility] Last Admin: 01/06/19 21:32 Dose: 100 mg Insulin Aspart (Novolog Vial Sliding Scale -) 1 vial SQ [facility]; Protocol Last Admin: 01/06/19 21:33 Dose: 8 units Pantoprazole Sodium (Protonix -) 40 mg PO DAILY [facility] Last Admin: 01/06/19 09:44 Dose: 40 mg Spironolactone (Aldactone -) 25 mg PO DAILY [facility] Last Admin: 01/06/19 09:44 Dose: 25 mg Tamsulosin HCl (Flomax -) 0.4 mg PO BID [facility] Last Admin: 01/06/19 21:32 Dose: 0.4 mg # CHF Cr returning to baseline Chest xray showed atelectasis ASA/Statin/ aldactone # HTN Aldactone Monitor BP # IDDM Monitor BG Gabapentin for neuropathy Novolog sliding scale # CKD Monitor Lytes Trend BUN/ creatinine at baseline Cont Lasix Appreciate Renal # OA multiple areas of pain - bilat knees chronic back pain - stenosis improved on IV steroids - d/c today # DM poor contolled due to IV steroids will monitor after d/c steroids Problem List - Problems (1) CHF (congestive heart failure) Code(s): I50.9 - HEART FAILURE, UNSPECIFIED (2) Acute on chronic diastolic (congestive) heart failure Code(s): I50.33 - ACUTE ON CHRONIC DIASTOLIC (CONGESTIVE) HEART FAILURE (3) CHF exacerbation Code(s): I50.9 - HEART FAILURE, UNSPECIFIED (4) CKD (chronic kidney disease) Code(s): N18.9 - CHRONIC KIDNEY DISEASE, UNSPECIFIED (5) Diabetes Code(s): E11.9 - TYPE 2 DIABETES MELLITUS WITHOUT COMPLICATIONS Qualifiers: Diabetes mellitus assisted insulin use: with intermediate designer use Diabetes mellitus complication detail: with unspecified neuropathy (6) Dizziness Code(s): R42 - DIZZINESS AND GIDDINESS (7) HTN (hypertension) Code(s): I10 - ESSENTIAL (PRIMARY) HYPERTENSION (8) Hyperlipidemia Code(s): E78.5 - HYPERLIPIDEMIA, UNSPECIFIED (9) Leg edema Code(s): R60.0 - LOCALIZED EDEMA (10) Morbid obesity Code(s): E66.01 - MORBID (SEVERE) OBESITY DUE TO EXCESS CALORIES (11) Musculoskeletal pain Code(s): M79.1 - MYALGIA * DO NOT USE *
[2019-01-07] MEDS: INSULIN SLIDING SCALE (NOVOLOG) 1 VIAL SQ SCH (06:25)
[2019-01-07 07:21] LABS: CALCIUM 8.7 mg/dL (8.5-10.1); CREATININE 2.8 mg/dL (0.55-1.3); POTASSIUM 4.1 mmol/L (3.5-5.1)
[2019-01-07 07:32] LABS: BASO % 0.5 % (0-2.0); EOS % 1.7 % (0-4.5); HEMATOCRIT 39.6 % (35.4-49); MCH 27.9 pg (25.7-33.7); MCHC 32.8 g/dl (32.0-35.9); MEAN PLT VOLUME 9.5 fl (7.5-11.1); MONO % 9.4 % (3.8-10.2); NEUT % 73.4 % (42.8-82.8); PLATELET COUNT 135 K/MM3 (134-434); RBC 4.65 M/mm3 (4.00-5.60); RDW 18.9 % (11.9-15.9); WHITE BLOOD COUNT 6.7 K/mm3 (4.0-10.0)
--- NOTE | 2019-01-07 08:48 | DS ---
Physical Examination Vital Signs: Vital Signs Temperature 97.7 F 01/07/19 06:00 Pulse Rate 60 01/07/19 06:00 Respiratory Rate 20 01/07/19 06:00 Blood Pressure 108/65 01/07/19 06:00 O2 Sat by Pulse Oximetry (%) 97 01/06/19 21:00 Constitutional: Yes: Well Nourished, Calm Eyes: Yes: Conjunctiva Clear, EOM Intact HENT: Yes: Atraumatic, Normocephalic Neck: Yes: Supple, Trachea Midline Cardiovascular: Yes: Regular Rate and Rhythm Respiratory: Yes: Regular, CTA Bilaterally Gastrointestinal: Yes: Normal Bowel Sounds, Soft ...Rectal Exam: Yes: Deferred Renal/: Yes: WNL Breast(s): Yes: WNL Musculoskeletal: Yes: WNL Extremities: Yes: WNL Edema: No Peripheral Pulses WNL: No Integumentary: Yes: WNL Neurological: Yes: Alert, Oriented ...Motor Strength: WNL Psychiatric: Yes: Alert, Oriented Labs: CBC, BMP 01/07/19 05:45 01/07/19 05:45 Discharge Summary Reason For Visit: CONGESTIVE HEART FAILURE Current Active Problems CHF (congestive heart failure) (Acute) Hospital Course: Pt is a 78 year old male with Pmhx of Ckd, CHF, Copd, Dm, Gerd, Cad, Hld, and Htn admitted for worsening shortness of breath and LE edema. Elevated kidney function tests. Pt stable at this time. 11 lb wt loss during hosp stay. Denies SOB. Condition: Good - Instructions Diet, Activity, Other Instructions: 2 gm Na diet, heart healthy foods, ADA diet. To f/u with Renal as outpt. F/u with PCP in 1-2 weeks. Pt will dc'd home today with homecare services. Disposition: HOME - Home Medications Comprehensive Discharge Medication List: Ambulatory Orders Insulin Aspart [Novolog] 15 unit SQ ASDIR 07/16/17 Insulin Degludec [Tresiba Flextouch U-100] 70 unit SQ DAILY 07/16/17 Aspirin [Ecotrin] 162 mg PO DAILY #60 tablet. 01/06/18 Atorvastatin Ca [Lipitor] 40 mg PO HS #30 tablet 01/06/18 Acetaminophen [Tylenol .Regular Strength -] 650 mg PO Q4H PRN tablet 11/26/18 Insulin Sliding Scale [Novolog Vial Sliding Scale -] 1 vial SQ ACHS units 03/23 Polyvinyl Alcohol [Artificial Tears] 1 drop OU QID PRN drops 05/12/18 Potassium Chloride [K-Dur -] 20 meq PO DAILY 30 Days #30 tablet.er 05/12/18 Colchicine [Colcrys] 0.6 mg PO DAILY 12/30/18 Furosemide [Lasix -] 40 mg PO BID@0600,1300 12/30/18 Gabapentin [Neurontin -] 100 mg PO BID 12/30/18 Omeprazole 40 mg PO DAILY 12/30/18 Spironolactone [Aldactone] 25 mg PO DAILY 12/30/18 Tamsulosin HCl [Flomax] 0.4 mg PO BID 12/30/18
[2019-01-07] MEDS: SPIRONOLACTONE 25 MG TABLET (FP) PO SCH (09:32)
[2019-01-07] MEDS: COLCHICINE 0.6 MG CAP PO SCH (09:32)
[2019-01-07] MEDS: GABAPENTIN 100 MG CAPSULE (FP) PO SCH (09:33)
[2019-01-07] MEDS: ASPIRIN COATED 81 MG TABLET.EC PO SCH (09:33)
[2019-01-07] MEDS: PANTOPRAZOLE 40 MG TABLET (FP) PO SCH (09:33)
[2019-01-07] MEDS: FUROSEMIDE 40 MG TABLET (FP) PO SCH (09:33)
[2019-01-07] MEDS: TAMSULOSIN HCL 0.4 MG CAP PO SCH (09:33)
--- NOTE | 2019-01-07 12:01 | PN ---
Progress Note (short form) - Note Progress Note: s: no sob, palps, dizziness cp Home Medications Medication Instructions Recorded Insulin Aspart [Novolog] 15 unit SQ ASDIR 07/16/17 Insulin Degludec [Tresiba 70 unit SQ DAILY 07/16/17 Flextouch U-100] Aspirin [Ecotrin] 162 mg PO DAILY #60 tablet. 01/06/18 Atorvastatin Ca [Lipitor] 40 mg PO HS #30 tablet 01/06/18 Insulin Sliding Scale [Novolog 1 vial SQ ACHS units 03/23/18 Vial Sliding Scale -] Polyvinyl Alcohol [Artificial 1 drop OU QID PRN drops 05/12/18 Tears] Potassium Chloride [K-Dur -] 20 meq PO DAILY 30 Days #30 05/12/18 tablet.er Colchicine [Colcrys] 0.6 mg PO DAILY 12/30/18 Furosemide [Lasix -] 40 mg PO BID@0600,1300 12/30/18 Gabapentin [Neurontin -] 100 mg PO BID 12/30/18 Spironolactone [Aldactone -] 25 mg PO DAILY 12/30/18 Tamsulosin HCl [Flomax] 0.4 mg PO BID 12/30/18 Acetaminophen [Tylenol .Regular 650 mg PO Q4H PRN tablet 01/07/19 Strength -] Pantoprazole Sodium [Protonix -] 40 mg PO DAILY tablet.ec 01/07/19 Vital Signs Period Temp Pulse Resp BP Sys/Whitehead Pulse Ox Last 24 Hr 97.5 F-97.9 F 60-94 20-20 108-142/57-87 97 Constitutional: Yes: No Distress, Calm, Obese Eyes: No: Sclera Icterus HENT: No: Nasal Congestion Cardiovascular: Yes: Pulse Irregular, S1, S2. No: JVD (in chair), Gallop, Murmur Respiratory: Yes: Regular, CTA Bilaterally. No: Accessory Muscle Use, Rales Gastrointestinal: Yes: Normal Bowel Sounds, Soft. No: Tenderness Extremities: No: Cold Edema: no Integumentary: No: Jaundice Neurological: Yes: Alert, Oriented Psychiatric: No: Agitated CBC, BMP 01/07/19 05:45 01/07/19 05:45 Assessment/Plan echo 06/2017: mild dec lvef, nl rv, mild mr, mild-mod tr, rvsp 40-50, mild ar, mild pr echo 01/14: TDS--cannot assess LVEF. RV tds. mod-severe TR, no pulm HTN mibi 04/2018: mild apical ischemia not large territory. anterolateral scar, lvef 43 tele: SR with long MT, freq APCs/PVCs; no pauses a/p: 78 m hx cad, mi x2, cabg 2013, pci x2 2017, mobitz I, dchf, copd, dm, htn , hld, ckd here with sob, le edema. acute mixed diastolic/systolic CHF (mid-range EF): - cont PO lasix 80 mg AM, 40 mg PM - increased from home dose - weight and Cr stable, continue -cont aldactone -target SBP < 130--above goals, reassess once off hi dose steroids -needs JOSH eval as outpt if not previously done (mod-hi suspicion) -echo TDS, EF cannot assess EF--rec outpatient echo for surveillance of LV and RV size and function in light of mod-severe TR reported (TR severity will likely improve with diuresis) CKD: -cr baseline range 2-2.5 -renal fxn at baseline here VTach, AIVR: -brief runs on tele -K/Mag >4/2--cont to monitor and replete prn cad: -stable, no signs acs -cont asa, statin -recent stress test with low risk findings, continue current medical management of cad. abnl ecg, jennifer 1: -chronic finding, stable htn: -cont current meds hld: -cont statin cardiac rhodes stable for dc
[2019-01-07 14:04] VITALS: BP 136/57; PULSE 52; TEMP 98.1
== END 2019-01-07 11:17 | disposition home or self-care (01) | DRG 291 ==
LOC: JER 09:23 → JERBED 11:46 → J4W 22:35
PROVIDERS: ADMIT Family Medicine; ATTEND Family Medicine
DX: I13.0 Hypertensive heart and chronic kidney disease with heart failure and stage 1 through stage 4 chronic kidney disease, or unspecified chronic kidney disease (principal); I50.41 Acute combined systolic (congestive) and diastolic (congestive) heart failure; I47.2 Ventricular tachycardia; Z68.42 Body mass index [BMI] 45.0-49.9, adult; J98.11 Atelectasis; E11.22 Type 2 diabetes mellitus with diabetic chronic kidney disease; G62.9 Polyneuropathy, unspecified; I36.1 Nonrheumatic tricuspid (valve) insufficiency; E66.01 Morbid (severe) obesity due to excess calories; J44.9 Chronic obstructive pulmonary disease, unspecified; I44.0 Atrioventricular block, first degree; Z95.1 Presence of aortocoronary bypass graft; N18.9 Chronic kidney disease, unspecified; Z79.4 Long term (current) use of insulin; K21.9 Gastro-esophageal reflux disease without esophagitis; I25.2 Old myocardial infarction; I25.10 Atherosclerotic heart disease of native coronary artery without angina pectoris; E78.5 Hyperlipidemia, unspecified; Z96.653 Presence of artificial knee joint, bilateral; Z87.891 Personal history of nicotine dependence; M25.561 Pain in right knee; M17.0 Bilateral primary osteoarthritis of knee
CPT/HCPCS: 36415; 36600; 71045-TC-FY; 80048; 80053; 80061; 81003; 82375; 82570; 82803; 82947; 82962; 83036; 83050; 83721; 83735; 83880; 84156; 84443; 84484; 85025; 85610; 85730; 93005; 93010; 93306-TC; 93971-TC; 99283-25

== ENCOUNTER 2019-03-08 09:53 | Inpatient (IN) | payer OTHER ==
--- NOTE | 2019-03-08 10:59 | PDOC ---
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 Pt endorses that pain and swelling began suddenly. Pain is describbing as "poking" sensation and is a 10/10 in pain severity. Pt states he experienced similar symptoms approximately 3 years ago at [facility] but cannot recall what it was attributed to. Furthermore, pt states he has been short of breath and has been experiencing lower extremity edema for approximately 1 week. SOB is worse with exertion, specifically when walking to restroom. Pt nornmally uses a cane to ambulate. Denies Nausea or vomiting. Past History - Past Medical History Allergies/Adverse Reactions: Allergies Allergy/AdvReac Type Severity Reaction Status Date / Time No Known Allergies Allergy Verified 12/30/18 09:33 Home Medications: Ambulatory Orders Insulin Aspart [Novolog] 15 unit SQ ASDIR 07/16/17 Insulin Degludec [Tresiba Flextouch U-100] 70 unit SQ DAILY 07/16/17 Aspirin [Ecotrin] 162 mg PO DAILY #60 tablet. 01/06/18 Atorvastatin Ca [Lipitor] 40 mg PO HS #30 tablet 01/06/18 Insulin Sliding Scale [Novolog Vial Sliding Scale -] 1 vial SQ ACHS units 03/23 Polyvinyl Alcohol [Artificial Tears] 1 drop OU QID PRN drops 05/12/18 Colchicine [Colcrys] 0.6 mg PO DAILY 12/30/18 Furosemide [Lasix -] 40 mg PO BID@0600,1300 12/30/18 Gabapentin [Neurontin -] 100 mg PO BID 12/30/18 Spironolactone [Aldactone -] 25 mg PO DAILY 12/30/18 Tamsulosin HCl [Flomax] 0.4 mg PO BID 12/30/18 Pantoprazole Sodium [Protonix -] 40 mg PO DAILY tablet.ec 01/07/19 Aspirin 81 mg PO DAILY 03/08/19 Omeprazole 40 mg PO DAILY 03/08/19 Anemia: No Asthma: No Cancer: No Cardiac Disorders: Yes (CT X 2, stents, CABG) CVA: No COPD: Yes CHF: Yes Dementia: No Diabetes: Yes GI Disorders: Yes (GERD) Disorders: Yes (kidney pain) HTN: Yes Hypercholesterolemia: Yes Liver Disease: No Seizures: No Thyroid Disease: No - Surgical History Cardiac Surgery: Yes (CATH,cardiac bypass in ) Orthopedic Surgery: Yes (2 KNEE REPLACEMENTS) - Immunization History Immunization Up to Date: No - Psycho Social/Smoking Cessation Hx Smoking Status: No Smoking History: Never smoked Have you smoked in the past 12 months: No Number of Cigarettes Smoked Daily: 0 If you are a former smoker, when did you quit?: 30 years ago Hx Alcohol Use: No Drug/Substance Use Hx: No Substance Use Type: None Hx Substance Use Treatment: No Review of Systems - Review of Systems Able to Perform ROS?: Yes Is the patient limited British proficient: Yes HEENTM: No: Blurred Vision Respiratory: Yes: Shortness of Breath, SOB with Exertion Cardiac (ROS): Yes: Irregular Heart Rate. No: Chest Pain ABD/GI: No: Constipated, Diarrhea : No: Dysuria, Frequency, Urgency Musculoskeletal: Yes: Muscle Pain, Neck Pain *Physical Exam - Vital Signs Last Vital Signs Temp Pulse Resp BP Pulse Ox 97.4 F L 87 44 H 176/70 H 98 03/08/19 10:15 03/08/19 10:15 03/08/19 10:15 03/08/19 10:15 03/08/19 10:15 - Physical Exam General Appearance: Yes: Obese HEENT: positive: EOMI. negative: Scleral Icterus (L) Respiratory/Chest: positive: Crackles Cardiovascular: positive: S1, S2, Irregular Gastrointestinal/Abdominal: positive: Normal Bowel Sounds. negative: Guarding Extremity: positive: Tender, Pedal Edema, Swelling Neurologic: positive: file keeper II-XII NML intact, Normal Response, Responsive. negative: Facial Droop, Numbness Heart Score/ECG Review - ECG Impressions Comment:: Nl rate @ 77 bpm, ?afib, Nl intervals (RBBB), No acute ischemic changes ( lateral TWI) ED Treatment Course - LABORATORY CBC & Chemistry Diagram: 03/13/19 06:50 03/14/19 06:00 Medical Decision Making - Medical Decision Making 03/08/19 11:07 DDX includes but not limited to CHF exacerbation, Pneumonia, CARLOS on CKD Will order cardiac profile, cbc, cmp, bnp, cxr, ekg 03/08/19 11:13 Will administer 40 Lasix once 03/08/19 15:02 BNP > 8K. Dr Alvarado contacted. Pt admitted to Tele. CXR without acute pathology. Discharge - Discharge Information Problems reviewed: Yes Clinical Impression/Diagnosis: Leg edema - Follow up/Referral - Patient Discharge Instructions - Post Discharge Activity
[2019-03-08] MEDS ORDERED: FUROSEMIDE 40 MG/4 ML INJECTABLE VIAL IVPUSH ONE ×2 (11:13→15:41)
[2019-03-08] MEDS ORDERED: FUROSEMIDE 40 MG/4 ML INJECTABLE VIAL ONE (11:16)
[2019-03-08 11:47] LABS: EOS % 1.8 % (0-4.5); HEMATOCRIT 34.9 % (35.4-49); HEMOGLOBIN 11.3 GM/dL (11.7-16.9); LYMPH % 12.3 % (8-40); MCH 28.2 pg (25.7-33.7); MCHC 32.3 g/dl (32.0-35.9); MEAN CELL VOLUME 87.4 fl (80-96); MEAN PLT VOLUME 9.8 fl (7.5-11.1); MONO % 7.9 % (3.8-10.2); PLATELET COUNT 148 K/MM3 (134-434); RDW 17.8 % (11.9-15.9); WHITE BLOOD COUNT 5.5 K/mm3 (4.0-10.0)
--- NOTE | 2019-03-08 11:52 | PDOC ---
Documentation entered by Ortiz Merritt SCRIBE, acting as scribe for Joey Perry MD. Joey Perry MD: This documentation has been prepared by the René buenrostro Daniel, SCRIBE, under my direction and personally reviewed by me in its entirety. I confirm that the documentation accurately reflects all work, treatment, procedures, and medical decision making performed by me. Attending Attestation - Resident Resident Name: Dorian George - ED Attending Attestation I have performed the following: I have examined & evaluated the patient, The case was reviewed & discussed with the resident, I agree w/resident's findings & plan - HPI HPI: 03/08/19 11:44 78-year-old male history of hypertension, high cholesterol, diabetes, CHF on Lasix presents now with 2 weeks of progressive shortness of breath/dyspnea on exertion, orthopnea, and bilateral leg swelling. no chest pain, no f/c. Reports compliance with his Lasix, no recent medication changes. - Physicial Exam PE: 03/08/19 11:50 Blood pressure elevated, tachypnea, O2 sat within normal limits on supplemental oxygen Alert, obese, speaking full sentences Heart is irregular, bibasilar crackles without wheezing Abdomen benign 2+ pitting edema bilaterally to the knees - Medical Decision Making 03/08/19 11:50 78-year-old male presents with progressive CHF exacerbation/volume overload with dyspnea, hemodynamically stable here with moderate respiratory distress. Labs, urinalysis EKG, chest x-ray IV diuresis Will need admission and cardiac monitoring 03/08/19 12:35 hyperkalemia 6.2 with baseline Cr, treated with Ins/D50/Kayexalate/Ca gluconate. BNP elevated. CXR without acute pathology. tele admit to Dr. Alvarado. Heart Score/ECG Review #1 ECG reviewed & interpreted by me at: 10:19 General ECG Interpretation: Normal Rate (afib at 89), Normal Intervals (RBBB), No acute ischemic changes (extensive artifact, will repeat) #2 ECG reviewed & interpreted by me at: 13:15 General ECG Interpretation: Normal Rate (LIMB LEADS REVERSED, afib at 74, RBBB) , Normal Intervals, No acute ischemic changes #3 ECG reviewed & interpreted by me at: 13:41 General ECG Interpretation: Normal Rate (afib at 77), Normal Intervals (RBBB,), No acute ischemic changes (lateral TWI)
[2019-03-08 12:21] LABS: ALBUMIN 3.2 g/dl (3.4-5.0); BILIRUBIN,TOTAL 0.7 mg/dL (0.2-1); BLOOD UREA NITROGEN 57.8 mg/dL (7-18); CALCIUM 8.8 mg/dL (8.5-10.1); CREATININE 2.4 mg/dL (0.55-1.3); TOT PROT 6.5 g/dl (6.4-8.2)
[2019-03-08 12:31] LABS: POTASSIUM 6.2 mmol/L (3.5-5.1)
[2019-03-08] MEDS ORDERED: SODIUM POLYSTYRENE SULFONATE 15 GM/60 ML BOTTLE PO ONE (12:35)
[2019-03-08] MEDS ORDERED: CALCIUM GLUCONATE 10% - 1,000 MG/10 ML VIAL IVPUSH ONE (12:35)
[2019-03-08] MEDS ORDERED: DEXTROSE 50%-WATER - 25 GM/50 ML VIAL IVPUSH ONE (12:36)
[2019-03-08] MEDS ORDERED: CALCIUM GLUCONATE 10% - 1,000 MG/10 ML VIAL ONE (12:39)
[2019-03-08 13:31] LABS: BLOOD UREA NITROGEN 58.4 mg/dL (7-18); CALCIUM 9.1 mg/dL (8.5-10.1); CREATININE 2.4 mg/dL (0.55-1.3); POTASSIUM 4.6 mmol/L (3.5-5.1)
[2019-03-08] MEDS ORDERED: ARTIFICIAL TEARS (POLYVINYL ALCOHOL) OPTH DROPS OU PRN (14:09)
[2019-03-08] MEDS ORDERED: INSULIN ASPART 15 UNIT SQ SCH (14:15)
[2019-03-08] MEDS ORDERED: COLCHICINE 0.6 MG PO SCH (14:15)
[2019-03-08] MEDS ORDERED: SPIRONOLACTONE 25 MG TABLET (FP) ONE (14:40)
[2019-03-08] MEDS: SPIRONOLACTONE 25 MG TABLET (FP) PO SCH (14:46)
--- NOTE | 2019-03-08 15:13 | HP ---
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 Pt endorses that pain and swelling began suddenly. Pain is describbing as "poking" sensation and is a 10/10 in pain severity. Pt states he experienced similar symptoms approximately 3 years ago at [facility] but cannot recall what it was attributed to. Furthermore, pt states he has been short of breath and has been experiencing lower extremity edema for approximately 1 week. SOB is worse with exertion, specifically when walking to restroom. Pt nornmally uses a cane to ambulate. Denies Nausea or vomiting. 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 No: AFIB Pulmonary: Yes: COPD, Other (former smoker) Gastrointestinal: Yes: Constipation Renal/: Yes: Renal Inusuff Musculoskeletal: Yes: Chronic low back pain, Osteoarthritis Rheumatology: Yes: Gout Endocrine: Yes: Diabetes Mellitus - Past Surgical History Past Surgical History: Yes: Bypass, CABG, Joint Replacement (bilateral knees) - Smoking History Smoking history: Never smoked Have you smoked in the past 12 months: No Aproximately how many cigarettes per day: 0 If you are a former smoker, when did you quit?: 30 years ago - Alcohol/Substance Use Hx Alcohol Use: No History of Substance Use: reports: None - Social History Usual Living Arrangement: Yes: Alone ADL: Family Assistance History of Recent Travel: No Home Medications - Allergies Allergies/Adverse Reactions: Allergies Allergy/AdvReac Type Severity Reaction Status Date / Time No Known Allergies Allergy Verified 12/30/18 09:33 - Home Medications Home Medications: Ambulatory Orders Insulin Aspart [Novolog] 15 unit SQ ASDIR 07/16/17 Insulin Degludec [Tresiba Flextouch U-100] 70 unit SQ DAILY 07/16/17 Aspirin [Ecotrin] 162 mg PO DAILY #60 tablet. 01/06/18 Atorvastatin Ca [Lipitor] 40 mg PO HS #30 tablet 01/06/18 Insulin Sliding Scale [Novolog Vial Sliding Scale -] 1 vial SQ ACHS units 03/23 Polyvinyl Alcohol [Artificial Tears] 1 drop OU QID PRN drops 05/12/18 Colchicine [Colcrys] 0.6 mg PO DAILY 12/30/18 Furosemide [Lasix -] 40 mg PO BID@0600,1300 12/30/18 Gabapentin [Neurontin -] 100 mg PO BID 12/30/18 Spironolactone [Aldactone -] 25 mg PO DAILY 12/30/18 Tamsulosin HCl [Flomax] 0.4 mg PO BID 12/30/18 Pantoprazole Sodium [Protonix -] 40 mg PO DAILY tablet.ec 01/07/19 Aspirin 81 mg PO DAILY 03/08/19 Omeprazole 40 mg PO DAILY 03/08/19 Review of Systems - Review of Systems Constitutional: denies: Chills, Diaphoresis, Fever Eyes: reports: No Symptoms HENT: reports: No Symptoms Neck: reports: No Symptoms Cardiovascular: reports: Edema, Shortness of Breath. denies: Chest Pain Respiratory: reports: Orthopnea. denies: Cough, Exercise Intolerance, Hemoptysis, PND, Snoring Gastrointestinal: reports: Constipation, Diarrhea. denies: Abdominal Pain, Bloating Genitourinary: reports: No Symptoms Breasts: reports: No Symptoms Reported Musculoskeletal: reports: No Symptoms, Back Pain, Decreased ROM, Extremity Pain , Muscle Pain Integumentary: reports: No Symptoms Neurological: reports: Pre-Existing Deficit Endocrine: reports: Unexplained Weight Gain (probably fluid) Hematology/Lymphatic: reports: No Symptoms Psychiatric: reports: No Symptoms Physical Examination Vital Signs: Vital Signs Temperature 98.0 F 03/08/19 12:04 Pulse Rate 89 03/08/19 14:40 Respiratory Rate 20 03/08/19 14:40 Blood Pressure 160/110 H 03/08/19 14:40 O2 Sat by Pulse Oximetry (%) 98 03/08/19 14:40 Constitutional: Yes: Well Nourished, No Distress, Calm Eyes: Yes: Conjunctiva Clear, EOM Intact HENT: Yes: Atraumatic, Normocephalic Neck: Yes: Supple, Trachea Midline Gastrointestinal: Yes: Normal Bowel Sounds, Abdomen, Obese ...Rectal Exam: Yes: Deferred Renal/: Yes: WNL Breast(s): Yes: WNL Musculoskeletal: Yes: Back Pain, Joint Stiffness, Joint Swelling Extremities: Yes: WNL Edema: Yes Edema: LUE: 1+ (hands and wrist ), RUE: 1+ (hands and wrist ), LLE: 2+, RLE: 2+ Peripheral Pulses WNL: Yes Neurological: Yes: Alert, Oriented Psychiatric: Yes: Alert, Oriented Labs: CBC, BMP 03/08/19 11:20 03/08/19 12:55 Problem List - Problems (1) Acute on chronic diastolic (congestive) heart failure Code(s): I50.33 - ACUTE ON CHRONIC DIASTOLIC (CONGESTIVE) HEART FAILURE (2) CHF (congestive heart failure) Code(s): I50.9 - HEART FAILURE, UNSPECIFIED (3) CKD (chronic kidney disease) Code(s): N18.9 - CHRONIC KIDNEY DISEASE, UNSPECIFIED (4) CKD (chronic kidney disease) stage 3, GFR 30-59 ml/min Code(s): N18.3 - CHRONIC KIDNEY DISEASE, STAGE 3 (MODERATE) (5) Diabetes Code(s): E11.9 - TYPE 2 DIABETES MELLITUS WITHOUT COMPLICATIONS Qualifiers: Diabetes mellitus skilled nursing insulin use: with skilled nursing use Diabetes mellitus complication detail: with unspecified neuropathy (6) Electrolyte abnormality Code(s): E87.8 - OTH DISORDERS OF ELECTROLYTE AND FLUID BALANCE, NEC (7) Hx of CABG Code(s): Z95.1 - PRESENCE OF AORTOCORONARY BYPASS GRAFT (8) Hyperlipidemia Code(s): E78.5 - HYPERLIPIDEMIA, UNSPECIFIED (9) Inflammatory arthritis Code(s): M19.90 - UNSPECIFIED OSTEOARTHRITIS, UNSPECIFIED SITE (10) Leg edema Code(s): R60.0 - LOCALIZED EDEMA (11) Morbid obesity Code(s): E66.01 - MORBID (SEVERE) OBESITY DUE TO EXCESS CALORIES (12) Spinal stenosis of lumbar region Code(s): M48.06 - SPINAL STENOSIS, LUMBAR REGION * DO NOT USE * (13) Swelling of joint, wrist, right Code(s): M25.431 - EFFUSION, RIGHT WRIST Assessment/Plan assmt / plan # HF IV lasix / spironolactone / trend renal function monitor K # CKD CKD 4 / nephrology consult #HTN continue medic # DM insulin sliding scale ADA diet # GOUT colchicine BID Solumedrol # CAD s/p CABG stable # Arrhythmia hx of 1 degree HB / VPC
--- NOTE | 2019-03-08 15:15 | CONSULT ---
Consultation: REQUESTING PROVIDER: Dr. Muniz CONSULT REQUEST: We have been asked to medically evaluate this patient for CKD. HISTORY OF PRESENT ILLNESS: Pt. is a 78 y.o. M w/ PMHx. of CKD( Stage 4), COPD ( no home O2), DM, GERD, CAD (s/p stents x2 and CABG 2013), HLD, HTN, and CHFrEF presents with shortness of breath, dyspnea on exertion and increased swelling in hands, legs and abdomen. Pt. states that the swelling started around 3 days ago. Pt. now states that his breathing is a little better. Pt. endorses head ache and b/l neck pain. Pt. endorses headache and dry cough that is productive of yellow-white sputum. Pt. denies any fever, chills, dysuria, polyuria or changes in bowel habits. Pt. denies any recent NSAID use, states that he only takes Tylenol. Pt. denies any changes to home medications since last visit in December for CHF exacerbation. REVIEW OF SYSTEMS: As above PHYSICAL EXAMINATION Vital Signs - 24 hr 03/08/19 03/08/19 03/08/19 10:15 12:04 14:40 Temperature 97.4 F L 98.0 F Pulse Rate 87 Pulse Rate [ 87 30 L 89 Left Radial] Respiratory 44 H 20 Rate Blood Pressure 176/70 H Blood Pressure 176/70 H 118/60 160/110 H [Right Arm] O2 Sat by Pulse 100 100 98 Oximetry (%) GENERAL: Awake, alert, and fully oriented, in mild respiratory distress. HEAD: Normal with no signs of trauma. EYES: Extraocular movements intact, sclera anicteric, conjunctiva clear. EARS, NOSE, THROAT: Ears normal, nares patent, oropharynx clear without exudates. Moist mucous membranes. NECK: Normal range of motion, supple without lymphadenopathy, JVD?, or masses. LUNGS: Decreased breath sounds, b/l crackles in mid to lower lungs HEART: Bradycardia, difficult to auscultate HR, but regular rate and rhythm, nml S! and S2 ABDOMEN: firm, nontender, nondistended, normoactive bowel sounds, abdominal scar , right sided hernia with skin changes overlying MUSCULOSKELETAL: Normal range of motion at all joints. No bony deformities or tenderness. No CVA tenderness. UPPER EXTREMITIES: 1+ radial pulses, warm, well-perfused. No cyanosis. No clubbing. Hand edema. LOWER EXTREMITIES: 2+ dorsal pedal pulses, warm, well-perfused. No calf tenderness. 3+ pitting edema w/ overlying skin changes. NEUROLOGICAL: Cranial nerves II-XII grossly intact. Normal speech. PSYCHIATRIC: Cooperative. Good eye contact. Appropriate mood and affect. SKIN: Warm, dry Laboratory Results - last 24 hr 03/08/19 03/08/19 03/08/19 11:20 11:20 11:20 WBC 5.5 RBC 4.00 Hgb 11.3 L Hct 34.9 L MCV 87.4 MCH 28.2 MCHC 32.3 RDW 17.8 H Plt Count 148 MPV 9.8 Absolute Neuts (auto) 4.2 Neutrophils % 77.0 Lymphocytes % 12.3 Monocytes % 7.9 Eosinophils % 1.8 Basophils % 1.0 Nucleated RBC % 0 Sodium 140 Potassium 6.2 H* Chloride 110 H Carbon Dioxide 26 Anion Gap 4 L BUN 57.8 H Creatinine 2.4 H Est GFR (CKD-EPI)AfAm 28.66 Est GFR (CKD-EPI)NonAf 24.73 Random Glucose 69 L Calcium 8.8 Total Bilirubin 0.7 AST 43 H ALT 18 Alkaline Phosphatase 120 H Creatine Kinase 306 Creatine Kinase Index 1.0 CK-MB (CK-2) 3.1 Troponin I 0.03 B-Natriuretic Peptide 8186.5 H Total Protein 6.5 Albumin 3.2 L 03/08/19 12:55 WBC RBC Hgb Hct MCV MCH MCHC RDW Plt Count MPV Absolute Neuts (auto) Neutrophils % Lymphocytes % Monocytes % Eosinophils % Basophils % Nucleated RBC % Sodium 141 Potassium 4.6 Chloride 109 H Carbon Dioxide 28 Anion Gap 3 L BUN 58.4 H Creatinine 2.4 H Est GFR (CKD-EPI)AfAm 28.66 Est GFR (CKD-EPI)NonAf 24.73 Random Glucose 81 Calcium 9.1 Total Bilirubin AST ALT Alkaline Phosphatase Creatine Kinase Creatine Kinase Index CK-MB (CK-2) Troponin I B-Natriuretic Peptide Total Protein Albumin Active Medications Home Medications Medication Instructions Recorded Insulin Aspart [Novolog] 15 unit SQ ASDIR 07/16/17 Insulin Degludec [Tresiba 70 unit SQ DAILY 07/16/17 Flextouch U-100] Aspirin [Ecotrin] 162 mg PO DAILY #60 tablet. 01/06/18 Atorvastatin Ca [Lipitor] 40 mg PO HS #30 tablet 01/06/18 Insulin Sliding Scale [Novolog 1 vial SQ ACHS units 03/23/18 Vial Sliding Scale -] Polyvinyl Alcohol [Artificial 1 drop OU QID PRN drops 05/12/18 Tears] Colchicine [Colcrys] 0.6 mg PO DAILY 12/30/18 Furosemide [Lasix -] 40 mg PO BID@0600,1300 12/30/18 Gabapentin [Neurontin -] 100 mg PO BID 12/30/18 Spironolactone [Aldactone -] 25 mg PO DAILY 12/30/18 Tamsulosin HCl [Flomax] 0.4 mg PO BID 12/30/18 Pantoprazole Sodium [Protonix -] 40 mg PO DAILY tablet.ec 01/07/19 Current Medications Artificial Tears (Artificial Tears) 1 drop OU Q6H PRN PRN Reason: DRY EYES Aspirin (Ecotrin -) 162 mg PO DAILY [facility] Atorvastatin Calcium (Lipitor -) 40 mg PO HS [facility] Colchicine (Colcrys) 0.6 mg PO BIDWM [facility] Furosemide (Lasix Injection -) 40 mg IVPUSH BID@0600,1400 [facility] Insulin Aspart (Novolog Vial Sliding Scale -) 1 vial SQ ACHS [facility]; Protocol Methylprednisolone Sodium Succinate (Solu-Medrol -) 40 mg IVPUSH Q6H-IV [facility] Non-Formulary Medication (Insulin Aspart [Novolog]) 15 unit SQ ASDIR [facility] Pantoprazole Sodium (Protonix -) 40 mg PO DAILY [facility] Spironolactone (Aldactone -) 25 mg PO DAILY [facility] Last Admin: 03/08/19 14:46 Dose: 25 mg Tamsulosin HCl (Flomax -) 0.4 mg PO BID@0830,2200 [facility] ASSESSMENT/PLAN: Pt. is a 78 y.o. M w/ PMHx. of CKD( Stage 4), COPD (no home O2), DM, GERD, CAD ( s/p stents x2 and CABG 2012), HLD, HTN, and CHFrEF presents with shortness of breath, dyspnea on exertion and increased swelling in hands, legs and abdomen. #Volume overload 2/2 acute CHF exacerbation Given Lasix 40mg IVP in ED, will give another 40mg IVP start Lasix 40mg IVP BID monitor BMP daily Cr. stable at baseline of 2.0 K+ was 6.4 on admission given 1gm calcium gluconate and is now 4.6 on repeat, will f/u in morning labs Strict Is and Os, monitor weights 1.5L Fluid restriction c/w Aldactone 25mg daily f/u ECHO, last Echo in April (apart of MPI study) showed EF of 43% c/w suplpemental O2 as needed c/w Flomax 0.4mg BID will potassium supplements in setting of Hyperkalemia on admission Dispo: We will continue to follow the patient. Thank you for this consultative opportunity. Visit type - Emergency Visit Emergency Visit: Yes ED Registration Date: 03/08/19 Care time: The patient presented to the Emergency Department on the above date and was hospitalized for further evaluation of their emergent condition. - New Patient This patient is new to me today: Yes Date on this admission: 03/08/19 - Critical Care Critical Care patient: No ATTENDING PHYSICIAN STATEMENT I saw and evaluated the patient. I reviewed the resident's note and discussed the case with the resident. I agree with the resident's findings and plan as documented. SUBJECTIVE: OBJECTIVE: ASSESSMENT AND PLAN:
--- NOTE | 2019-03-08 15:54 | PN ---
Teaching Attending Note Name of Resident: Bart Shankar (Nephrology) ATTENDING PHYSICIAN STATEMENT I saw and evaluated the patient. I reviewed the resident's note and discussed the case with the resident. I agree with the resident's findings and plan as documented. Renal Pt is a 78 year old male with pmhx of ckd, copd, dm, gerd, cad, hld and htn who presents to er with generalized edema. He says that it has been progressive. It started with his legs and then progressed to his arms. he also complains of shortness of breath. He denies dysuria or hematuria. pmhx ckd copd dm gerd cad hld htn family hx denies social hx lives at home nkda Current Medications Generic Name Dose Route Start Last Admin Trade Name Freq PRN Reason Stop Dose Admin Artificial Tears 1 drop 03/08/19 14:09 Artificial Tears OU Q6H PRN DRY EYES Aspirin 162 mg 03/09/19 10:00 Ecotrin - PO DAILY JENNIFER Atorvastatin Calcium 40 mg 03/08/19 22:00 Lipitor - PO HS JENNIFER Colchicine 0.6 mg 03/08/19 17:30 Colcrys PO BIDWM JENNIFER Furosemide 40 mg 03/09/19 06:00 Lasix Injection - IVPUSH BID@0600,1400 JENNIFER Insulin Aspart 1 vial 03/08/19 16:30 Novolog Vial Sliding Scale - SQ ACHS JENNIFER Protocol Methylprednisolone Sodium Succinate 40 mg 03/08/19 15:00 Solu-Medrol - IVPUSH Q6H-IV JENNIFER Non-Formulary Medication 15 unit 03/08/19 14:15 Insulin Aspart [Novolog] SQ ASDIR JENNIFER Pantoprazole Sodium 40 mg 03/09/19 10:00 Protonix - PO DAILY JENNIFER Spironolactone 25 mg 03/08/19 14:15 03/08/19 14:46 Aldactone - PO 25 mg DAILY JENNIFER Administration Tamsulosin HCl 0.4 mg 03/08/19 22:00 Flomax - PO BID@0830,2200 [facility] Laboratory Tests 01/05/19 01/06/19 01/07/19 06:05 07:40 05:45 Potassium Creatinine 2.5 H 2.6 H 2.8 H 03/08/19 03/08/19 11:20 12:55 Potassium 6.2 H* 4.6 Creatinine 2.4 H 2.4 H cardio s1s2 reg pulm crackles gi soft ext plus 4 edema neuro awake and alert skin venous stasis Impression 1. CKD 2. CHF 3. DM 4. obesity 5. HTN 6. dyspnea 7. HLD 8. CAD s/p cabg 9. volume overload 10. hyperkalemia Plan - IV lasix - potassium improved - cardiac diet - check ua - monitor output - monitor volume status closely
[2019-03-08] MEDS ORDERED: INSULIN SLIDING SCALE (NOVOLOG) 1 VIAL SQ SCH (16:30)
--- NOTE | 2019-03-08 16:31 | CON.CARD ---
Cardiology Consult (text) - Consultation Consultation Note: [facility] *LIVE* Chief Complaint: shortness of breath, le edema History of Present Illness: 78M h/o chronic diastolic HF, CKD, HTN, cabg,p/w sob, le edema. Recent admission for CHF exacerbation 12/2018, with worsening lower ext edema and shortness of breath. Sees dr richards/sarah for cardio. Worsening swelling in hands and legs over the last 3 days, also had a pain in hands. Also with worsening lower ext edema over the last week. 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: Peripheral Neuropathy Cardio/Vascular: Yes: CHF, HTN, Hyperlipdemia, VT, Other (CABG) Pulmonary: Yes: COPD, Other (former smoker) Renal/: Yes: Renal Inusuff Musculoskeletal: Yes: Chronic low back pain, Osteoarthritis Endocrine: Yes: Diabetes Mellitus - Past Surgical History Past Surgical History: Yes: Bypass, CABG, Joint Replacement (bilateral knees) - Alcohol/Substance Use Hx Alcohol Use: No History of Substance Use: reports: None - Smoking History Smoking history: Never smoked Have you smoked in the past 12 months: No Aproximately how many cigarettes per day: 0 If you are a former smoker, when did you quit?: 30 years ago - Social History Usual Living Arrangement: With Child ADL: Family Assistance History of Recent Travel: No Home Medications - Allergies Allergies/Adverse Reactions: Allergies Allergy/AdvReac Type Severity Reaction Status Date / Time No Known Allergies Allergy Verified 12/30/18 09:33 - Home Medications Home Medications Medication Instructions Recorded Insulin Aspart [Novolog] 15 unit SQ ASDIR 07/16/17 Insulin Degludec [Tresiba 70 unit SQ DAILY 07/16/17 Flextouch U-100] Aspirin [Ecotrin] 162 mg PO DAILY #60 tablet. 01/06/18 Atorvastatin Ca [Lipitor] 40 mg PO HS #30 tablet 01/06/18 Insulin Sliding Scale [Novolog 1 vial SQ ACHS units 03/23/18 Vial Sliding Scale -] Polyvinyl Alcohol [Artificial 1 drop OU QID PRN drops 05/12/18 Tears] Colchicine [Colcrys] 0.6 mg PO DAILY 12/30/18 Furosemide [Lasix -] 40 mg PO BID@0600,1300 12/30/18 Gabapentin [Neurontin -] 100 mg PO BID 12/30/18 Spironolactone [Aldactone -] 25 mg PO DAILY 12/30/18 Tamsulosin HCl [Flomax] 0.4 mg PO BID 12/30/18 Pantoprazole Sodium [Protonix -] 40 mg PO DAILY tablet.ec 01/07/19 Family Disease History - Family Disease History Family Disease History: Diabetes: Father, Mother Review of Systems per hpi - Review of Systems Constitutional: reports: No Symptoms Eyes: reports: No Symptoms HENT: reports: No Symptoms Neck: reports: No Symptoms Gastrointestinal: reports: No Symptoms Genitourinary: reports: No Symptoms Musculoskeletal: reports: No Symptoms Integumentary: reports: No Symptoms Neurological: reports: No Symptoms Endocrine: reports: No Symptoms Hematology/Lymphatic: reports: No Symptoms Psychiatric: reports: No Symptoms Vital Signs Period Temp Pulse Resp BP Sys/Whitehead Pulse Ox Last 24 Hr 97.4 F-98.0 F 30-89 20-44 118-176/60-110 98-100 Constitutional: Yes: Well Nourished, No Distress, Calm Eyes: Yes: Conjunctiva Clear Neck: Yes: Supple, Trachea Midline Respiratory: Yes: Regular, nl eff Rales (tristan bases) Gastrointestinal: Yes: Normal Bowel Sounds, Soft Cardiovascular: Yes: Pulse Irregular JVD: Yes Carotid Bruit: No PMI: Non-Displaced Heart Sounds: Yes: S1, S2 Extremities: No: Cold Edema: Yes Edema: LLE: 3+, RLE: 3+ Integumentary: No: Jaundice Neurological: Yes: Alert, Oriented Psychiatric: not agitated Laboratory Last Values WBC 5.5 K/mm3 (4.0-10.0) 03/08/19 11:20 RBC 4.00 M/mm3 (4.00-5.60) 03/08/19 11:20 Hgb 11.3 GM/dL (11.7-16.9) L 03/08/19 11:20 Hct 34.9 % (35.4-49) L 03/08/19 11:20 MCV 87.4 fl (80-96) 03/08/19 11:20 MCH 28.2 pg (25.7-33.7) 03/08/19 11:20 MCHC 32.3 g/dl (32.0-35.9) 03/08/19 11:20 RDW 17.8 % (11.9-15.9) H 03/08/19 11:20 Plt Count 148 K/MM3 (134-434) 03/08/19 11:20 MPV 9.8 fl (7.5-11.1) 03/08/19 11:20 Absolute Neuts (auto) 4.2 K/mm3 (1.5-8.0) 03/08/19 11:20 Neutrophils % 77.0 % (42.8-82.8) 03/08/19 11:20 Lymphocytes % 12.3 % (8-40) 03/08/19 11:20 Monocytes % 7.9 % (3.8-10.2) 03/08/19 11:20 Eosinophils % 1.8 % (0-4.5) 03/08/19 11:20 Basophils % 1.0 % (0-2.0) 03/08/19 11:20 Nucleated RBC % 0 % (0-0) 03/08/19 11:20 Sodium 141 mmol/L (136-145) 03/08/19 12:55 Potassium 4.6 mmol/L (3.5-5.1) 03/08/19 12:55 Chloride 109 mmol/L (98-107) H 03/08/19 12:55 Carbon Dioxide 28 mmol/L (21-32) 03/08/19 12:55 Anion Gap 3 MMOL/L (8-16) L 03/08/19 12:55 BUN 58.4 mg/dL (7-18) H 03/08/19 12:55 Creatinine 2.4 mg/dL (0.55-1.3) H 03/08/19 12:55 Est GFR (CKD-EPI)AfAm 28.66 03/08/19 12:55 Est GFR (CKD-EPI)NonAf 24.73 03/08/19 12:55 Random Glucose 81 mg/dL (74-106) 03/08/19 12:55 Calcium 9.1 mg/dL (8.5-10.1) 03/08/19 12:55 Total Bilirubin 0.7 mg/dL (0.2-1) 03/08/19 11:20 AST 43 U/L (15-37) H 03/08/19 11:20 ALT 18 U/L (13-61) 03/08/19 11:20 Alkaline Phosphatase 120 U/L (45-117) H 03/08/19 11:20 Creatine Kinase 306 U/L (26-308) 03/08/19 11:20 Creatine Kinase Index 1.0 % (0.0-5.0) 03/08/19 11:20 CK-MB (CK-2) 3.1 ng/mL (0.5-3.6) 03/08/19 11:20 Troponin I 0.03 ng/ml (0.00-0.05) 03/08/19 11:20 B-Natriuretic Peptide 8186.5 pg/ml (5-450) H 03/08/19 11:20 Total Protein 6.5 g/dl (6.4-8.2) 03/08/19 11:20 Albumin 3.2 g/dl (3.4-5.0) L 03/08/19 11:20 echo 06/2017: mild dec lvef, nl rv, mild mr, mild-mod tr, rvsp 40-50, mild ar, mild pr mibi 04/2018: mild nonextensive apical ischemia. anterolateral scar, lvef 43 cxr: congestive changes a/p: 78 m hx cad, mi x2, cabg 2012, pci x2 2017, mobitz I, dchf, copd, dm, htn , hld, ckd here with sob, le edema. acute on chronic diastolic chf: -cont iv lasix - daily wts, chem7 -cont aldactone CKD, hyperkalemia - K improved -renal following, monitor Cr with lasix cad: -stable, no signs acs -cont asa, statin -recent stress test with low risk findings, continue current medical management of cad. abnl ecg, mobitz 1: -chronic finding, stable htn: -cont current meds hld: -cont statin
[2019-03-08] MEDS: INSULIN SLIDING SCALE (NOVOLOG) 1 VIAL SQ SCH ×2 (17:32→21:08)
[2019-03-08] MEDS: COLCHICINE 0.6 MG CAP PO SCH (17:32)
[2019-03-08] MEDS: methylPREDNISolone NA SUCC 40 MG/1 ML VIAL IVPUSH SCH ×2 (17:37→21:08)
[2019-03-08] MEDS: ATORVASTATIN CA 40 MG TABLET (FP) PO SCH (21:06)
[2019-03-08] MEDS: TAMSULOSIN HCL 0.4 MG CAP PO SCH (21:07)
[2019-03-09] MEDS: methylPREDNISolone NA SUCC 40 MG/1 ML VIAL IVPUSH SCH ×4 (03:28→21:07)
[2019-03-09] MEDS ORDERED: FUROSEMIDE 40 MG/4 ML INJECTABLE VIAL IVPUSH SCH (06:00)
[2019-03-09] MEDS: INSULIN SLIDING SCALE (NOVOLOG) 1 VIAL SQ SCH ×4 (06:13→21:09)
[2019-03-09 06:59] LABS: BASO % 0.2 % (0-2.0); HEMATOCRIT 37.2 % (35.4-49); LYMPH % 9.2 % (8-40); MCHC 32.3 g/dl (32.0-35.9); MEAN CELL VOLUME 86.6 fl (80-96); MEAN PLT VOLUME 9.3 fl (7.5-11.1); MONO % 1.2 % (3.8-10.2); NEUT % 89.4 % (42.8-82.8); PLATELET COUNT 132 K/MM3 (134-434); RBC 4.29 M/mm3 (4.00-5.60); RDW 17.4 % (11.9-15.9); WHITE BLOOD COUNT 3.6 K/mm3 (4.0-10.0)
[2019-03-09 07:25] LABS: CALCIUM 9.3 mg/dL (8.5-10.1); CREATININE 2.4 mg/dL (0.55-1.3); MAGNESIUM 2.2 mg/dL (1.8-2.4); POTASSIUM 4.7 mmol/L (3.5-5.1)
--- NOTE | 2019-03-09 08:28 | PN ---
Progress Note (short form) - Note Progress Note: sitting in bed more comfortable today less swelling to hands and arms Vital Signs Period Temp Pulse Resp BP Sys/Whitehead Pulse Ox Last 24 Hr 97.4 F-98.0 F 30-106 20-44 118-176/60-110 98-100 neck supple heart s1/S2 irre lungs clear bilat and obese / soft / non tender Ext ++ edema CBC, BMP 03/09/19 06:20 03/09/19 06:00 Active Medications Artificial Tears (Artificial Tears) 1 drop OU Q6H PRN PRN Reason: DRY EYES Aspirin (Ecotrin -) 162 mg PO DAILY [facility] Atorvastatin Calcium (Lipitor -) 40 mg PO HS [facility] Last Admin: 03/08/19 21:06 Dose: 40 mg Colchicine (Colcrys) 0.6 mg PO BIDWM [facility] Last Admin: 03/08/19 17:32 Dose: 0.6 mg Furosemide (Lasix Injection -) 40 mg IVPUSH BID@0600,1400 [facility] Last Admin: 03/09/19 05:53 Dose: 40 mg Insulin Aspart (Novolog Vial Sliding Scale -) 1 vial SQ ACHS [facility]; Protocol Last Admin: 03/09/19 06:13 Dose: 4 units Methylprednisolone Sodium Succinate (Solu-Medrol -) 40 mg IVPUSH Q6H-IV [facility] Last Admin: 03/09/19 03:28 Dose: 40 mg Non-Formulary Medication (Insulin Aspart [Novolog]) 15 unit SQ ASDIR [facility] Pantoprazole Sodium (Protonix -) 40 mg PO DAILY [facility] Spironolactone (Aldactone -) 25 mg PO DAILY [facility] Last Admin: 03/08/19 14:46 Dose: 25 mg Tamsulosin HCl (Flomax -) 0.4 mg PO BID@0830,2200 [facility] Last Admin: 03/08/19 21:07 Dose: 0.4 mg # HF IV lasix / spironolactone / trend renal function monitor K # CKD CKD 4 / nephrology consult #HTN continue medic # DM insulin sliding scale ADA diet # GOUT colchicine BID Solumedrol # CAD s/p CABG stable # Arrhythmia hx of 1 degree HB / VPC Problem List - Problems (1) Acute on chronic diastolic (congestive) heart failure Code(s): I50.33 - ACUTE ON CHRONIC DIASTOLIC (CONGESTIVE) HEART FAILURE (2) CHF (congestive heart failure) Code(s): I50.9 - HEART FAILURE, UNSPECIFIED (3) CKD (chronic kidney disease) Code(s): N18.9 - CHRONIC KIDNEY DISEASE, UNSPECIFIED (4) CKD (chronic kidney disease) stage 3, GFR 30-59 ml/min Code(s): N18.3 - CHRONIC KIDNEY DISEASE, STAGE 3 (MODERATE) (5) Diabetes Code(s): E11.9 - TYPE 2 DIABETES MELLITUS WITHOUT COMPLICATIONS Qualifiers: Diabetes mellitus care home insulin use: with care home use Diabetes mellitus complication detail: with unspecified neuropathy (6) Electrolyte abnormality Code(s): E87.8 - OTH DISORDERS OF ELECTROLYTE AND FLUID BALANCE, NEC (7) Hx of CABG Code(s): Z95.1 - PRESENCE OF AORTOCORONARY BYPASS GRAFT (8) Hyperlipidemia Code(s): E78.5 - HYPERLIPIDEMIA, UNSPECIFIED (9) Inflammatory arthritis Code(s): M19.90 - UNSPECIFIED OSTEOARTHRITIS, UNSPECIFIED SITE (10) Leg edema Code(s): R60.0 - LOCALIZED EDEMA (11) Morbid obesity Code(s): E66.01 - MORBID (SEVERE) OBESITY DUE TO EXCESS CALORIES (12) Spinal stenosis of lumbar region Code(s): M48.06 - SPINAL STENOSIS, LUMBAR REGION * DO NOT USE * (13) Swelling of joint, wrist, right Code(s): M25.431 - EFFUSION, RIGHT WRIST
--- NOTE | 2019-03-09 10:00 | EKG ---
Test Reason : Blood Pressure : / mmHG Vent. Rate : 077 BPM Atrial Rate : 096 BPM P-R Int : 000 ms QRS Dur : 130 ms QT Int : 428 ms P-R-T Axes : 000 -07 186 degrees QTc Int : 484 ms NORMAL SINUS RHYTHM Non-conducted APCs. CANNOT RULE OUT high degree AV block. RIGHT BUNDLE BRANCH BLOCK MINIMAL VOLTAGE CRITERIA FOR LVH, MAY BE NORMAL VARIANT T WAVE ABNORMALITY, CONSIDER INFEROLATERAL ISCHEMIA ABNORMAL ECG WHEN COMPARED WITH ECG OF 30-DEC-2018 13:32, T WAVE INVERSION NOW EVIDENT IN INFERIOR LEADS T WAVE INVERSION NOW EVIDENT IN LATERAL LEADS Confirmed by MD LUIS, DOUG ([id number]) on 03/09/2019 9:59:46 AM Referred By: Confirmed By:DOUG SMITH MD
[2019-03-09] MEDS: TAMSULOSIN HCL 0.4 MG CAP PO SCH ×2 (10:41→21:08)
[2019-03-09] MEDS: PANTOPRAZOLE 40 MG TABLET (FP) PO SCH (10:42)
[2019-03-09] MEDS: SPIRONOLACTONE 25 MG TABLET (FP) PO SCH (10:42)
[2019-03-09] MEDS: COLCHICINE 0.6 MG CAP PO SCH ×2 (10:42→17:48)
[2019-03-09] MEDS: ASPIRIN COATED 81 MG TABLET.EC PO SCH (10:42)
--- NOTE | 2019-03-09 11:10 | PN ---
Progress Note (short form) - Note Progress Note: s: edema, sob improving. complains of pain in both hands Allergies No Known Allergies Allergy (Verified 12/30/18 09:33) Ambulatory Orders Insulin Aspart [Novolog] 15 unit SQ ASDIR 07/16/17 Insulin Degludec [Tresiba Flextouch U-100] 70 unit SQ DAILY 07/16/17 Aspirin [Ecotrin] 162 mg PO DAILY #60 tablet. 01/06/18 Atorvastatin Ca [Lipitor] 40 mg PO HS #30 tablet 01/06/18 Insulin Sliding Scale [Novolog Vial Sliding Scale -] 1 vial SQ ACHS units 03/23 Polyvinyl Alcohol [Artificial Tears] 1 drop OU QID PRN drops 05/12/18 Colchicine [Colcrys] 0.6 mg PO DAILY 12/30/18 Furosemide [Lasix -] 40 mg PO BID@0600,1300 12/30/18 Gabapentin [Neurontin -] 100 mg PO BID 12/30/18 Spironolactone [Aldactone -] 25 mg PO DAILY 12/30/18 Tamsulosin HCl [Flomax] 0.4 mg PO BID 12/30/18 Pantoprazole Sodium [Protonix -] 40 mg PO DAILY tablet.ec 01/07/19 Aspirin 81 mg PO DAILY 03/08/19 Omeprazole 40 mg PO DAILY 03/08/19 Intake & Output 03/07/19 03/08/19 03/09/19 23:59 23:59 23:59 Intake Total 440 430 Output Total 900 700 Balance -460 -270 Weight 256 lb 3.2 oz 254 lb 12.8 oz Medications Artificial Tears (Artificial Tears) 1 drop OU Q6H PRN PRN Reason: DRY EYES Aspirin (Ecotrin -) 162 mg PO DAILY [facility] Last Admin: 03/09/19 10:42 Dose: 162 mg Atorvastatin Calcium (Lipitor -) 40 mg PO HS [facility] Last Admin: 03/08/19 21:06 Dose: 40 mg Colchicine (Colcrys) 0.6 mg PO BIDWM [facility] Last Admin: 03/09/19 10:42 Dose: 0.6 mg Furosemide (Lasix Injection -) 40 mg IVPUSH BID@0600,1400 [facility] Last Admin: 03/09/19 05:53 Dose: 40 mg Insulin Aspart (Novolog Vial Sliding Scale -) 1 vial SQ ACHS [facility]; Protocol Last Admin: 03/09/19 06:13 Dose: 4 units Methylprednisolone Sodium Succinate (Solu-Medrol -) 40 mg IVPUSH Q6H-IV [facility] Last Admin: 03/09/19 10:51 Dose: 40 mg Non-Formulary Medication (Insulin Aspart [Novolog]) 15 unit SQ ASDIR [facility] Pantoprazole Sodium (Protonix -) 40 mg PO DAILY [facility] Last Admin: 03/09/19 10:42 Dose: 40 mg Spironolactone (Aldactone -) 25 mg PO DAILY [facility] Last Admin: 03/09/19 10:42 Dose: 25 mg Tamsulosin HCl (Flomax -) 0.4 mg PO BID@0830,2200 [facility] Last Admin: 03/09/19 10:41 Dose: 0.4 mg Orders 03/09/19 06:00 Furosemide Injection [Lasix Injection -] 40 mg IVPUSH BID@0600,1400 03/09/19 10:00 Aspirin Coated [Ecotrin -] 162 mg PO DAILY Pantoprazole Sodium [Protonix -] 40 mg PO DAILY 03/09/19 Breakfast Low Na [Sodium Controlled Diet] [DT] 03/10/19 06:00 BMP [BASIC METABOLIC PANEL] Routine CBC WITH DIFFERENTIAL Routine Vital Signs 03/08/19 03/08/19 03/08/19 12:04 14:40 15:24 Temperature 98.0 F Pulse Rate Pulse Rate [ 30 L 89 Left Radial] Respiratory 20 Rate Blood Pressure Blood Pressure 118/60 160/110 H 150/97 [Right Arm] O2 Sat by Pulse 100 98 Oximetry (%) 03/08/19 03/08/19 03/08/19 16:30 17:09 20:51 Temperature 97.6 F 98 F Pulse Rate 54 L 59 L Pulse Rate [ Left Radial] Respiratory 20 20 Rate Blood Pressure 138/76 154/66 Blood Pressure [Right Arm] O2 Sat by Pulse 100 Oximetry (%) 03/08/19 03/09/19 03/09/19 21:00 02:00 05:24 Temperature 97.5 F L 98 F Pulse Rate 106 H 74 Pulse Rate [ Left Radial] Respiratory 20 20 Rate Blood Pressure 144/88 157/93 Blood Pressure [Right Arm] O2 Sat by Pulse 98 Oximetry (%) 03/09/19 03/09/19 09:00 10:00 Temperature 98.4 F Pulse Rate 102 H Pulse Rate [ Left Radial] Respiratory 20 20 Rate Blood Pressure 153/68 Blood Pressure [Right Arm] O2 Sat by Pulse 98 Oximetry (%) Current Medications Artificial Tears (Artificial Tears) 1 drop OU Q6H PRN PRN Reason: DRY EYES Aspirin (Ecotrin -) 162 mg PO DAILY [facility] Last Admin: 03/09/19 10:42 Dose: 162 mg Atorvastatin Calcium (Lipitor -) 40 mg PO HS [facility] Last Admin: 03/08/19 21:06 Dose: 40 mg Colchicine (Colcrys) 0.6 mg PO BIDWM [facility] Last Admin: 03/09/19 10:42 Dose: 0.6 mg Furosemide (Lasix Injection -) 40 mg IVPUSH BID@0600,1400 [facility] Last Admin: 03/09/19 05:53 Dose: 40 mg Insulin Aspart (Novolog Vial Sliding Scale -) 1 vial SQ ACHS [facility]; Protocol Last Admin: 03/09/19 06:13 Dose: 4 units Methylprednisolone Sodium Succinate (Solu-Medrol -) 40 mg IVPUSH Q6H-IV [facility] Last Admin: 03/09/19 10:51 Dose: 40 mg Non-Formulary Medication (Insulin Aspart [Novolog]) 15 unit SQ ASDIR [facility] Pantoprazole Sodium (Protonix -) 40 mg PO DAILY [facility] Last Admin: 03/09/19 10:42 Dose: 40 mg Spironolactone (Aldactone -) 25 mg PO DAILY [facility] Last Admin: 03/09/19 10:42 Dose: 25 mg Tamsulosin HCl (Flomax -) 0.4 mg PO BID@0830,2200 [facility] Last Admin: 03/09/19 10:41 Dose: 0.4 mg Vital Signs Period Temp Pulse Resp BP Sys/Whitehead Pulse Ox Last 24 Hr 97.5 F-98.4 F 30-106 20-20 118-160/60-110 98-100 Constitutional: Yes: Well Nourished, No Distress, Calm Eyes: Yes: Conjunctiva Clear Neck: Yes: Supple, Trachea Midline Respiratory: Yes: Regular, nl eff Rales (tristan bases) Gastrointestinal: Yes: Normal Bowel Sounds, Soft Cardiovascular: Yes: Pulse Irregular JVD: Yes Carotid Bruit: No PMI: Non-Displaced Heart Sounds: Yes: S1, S2 Extremities: No: Cold Edema: Yes Edema: LLE: 3+, RLE: 3+ Integumentary: No: Jaundice Neurological: Yes: Alert, Oriented Psychiatric: not agitated echo 06/2017: mild dec lvef, nl rv, mild mr, mild-mod tr, rvsp 40-50, mild ar, mild pr mibi 04/2018: mild nonextensive apical ischemia. anterolateral scar, lvef 43 cxr: congestive changes tele: sinus, first deg AVB, PVCs a/p: 78 m hx cad, mi x2, cabg 2012, pci x2 2017, mobitz I, dchf, copd, dm, htn , hld, ckd here with sob, le edema. acute on chronic diastolic chf: -cont iv lasix - daily wts, chem7 -cont aldactone gout - manage per primary, on solumedrol and colchicine CKD, hyperkalemia - K improved -renal following, monitor Cr with lasix cad: -stable, no signs acs -cont asa, statin -recent stress test with low risk findings, continue current medical management of cad. abnl ecg, jennifer 1: -chronic finding, stable htn: -cont current meds hld: -cont statin
--- NOTE | 2019-03-09 12:41 | PN ---
Progress Note, Physician History of Present Illness: Pt seen and examined at bedside. He is awake and alert. He feels that edema is starting to improve. - Current Medication List Current Medications: Active Medications Artificial Tears (Artificial Tears) 1 drop OU Q6H PRN PRN Reason: DRY EYES Aspirin (Ecotrin -) 162 mg PO DAILY [facility] Last Admin: 03/09/19 10:42 Dose: 162 mg Atorvastatin Calcium (Lipitor -) 40 mg PO HS [facility] Last Admin: 03/08/19 21:06 Dose: 40 mg Colchicine (Colcrys) 0.6 mg PO BIDWM [facility] Last Admin: 03/09/19 10:42 Dose: 0.6 mg Furosemide (Lasix Injection -) 40 mg IVPUSH BID@0600,1400 [facility] Last Admin: 03/09/19 05:53 Dose: 40 mg Insulin Aspart (Novolog Vial Sliding Scale -) 1 vial SQ ACHS [facility]; Protocol Last Admin: 03/09/19 12:17 Dose: 6 units Methylprednisolone Sodium Succinate (Solu-Medrol -) 40 mg IVPUSH Q6H-IV [facility] Last Admin: 03/09/19 10:51 Dose: 40 mg Non-Formulary Medication (Insulin Aspart [Novolog]) 15 unit SQ ASDIR [facility] Pantoprazole Sodium (Protonix -) 40 mg PO DAILY [facility] Last Admin: 03/09/19 10:42 Dose: 40 mg Spironolactone (Aldactone -) 25 mg PO DAILY [facility] Last Admin: 03/09/19 10:42 Dose: 25 mg Tamsulosin HCl (Flomax -) 0.4 mg PO BID@0830,2200 [facility] Last Admin: 03/09/19 10:41 Dose: 0.4 mg - Objective Vital Signs: Vital Signs Temperature 98.4 F 03/09/19 10:00 Pulse Rate 102 H 03/09/19 10:00 Respiratory Rate 20 03/09/19 10:00 Blood Pressure 153/68 03/09/19 10:00 O2 Sat by Pulse Oximetry (%) 98 03/09/19 09:00 Constitutional: Yes: Calm Eyes: Yes: Conjunctiva Clear HENT: Yes: Atraumatic Neck: Yes: Supple Cardiovascular: Yes: S1, S2 Respiratory: Yes: On Nasal O2 Gastrointestinal: Yes: Normal Bowel Sounds, Soft Genitourinary: Yes: WNL Musculoskeletal: Yes: WNL Edema: Yes Edema: LUE: 1+, RUE: 1+, LLE: 3+, RLE: 3+ Neurological: Yes: Oriented Psychiatric: Yes: Oriented Labs: CBC, BMP 03/09/19 06:20 03/09/19 06:00 Assessment/Plan Current Medications Generic Name Dose Route Start Last Admin Trade Name Freq PRN Reason Stop Dose Admin Artificial Tears 1 drop 03/08/19 14:09 Artificial Tears OU Q6H PRN DRY EYES Aspirin 162 mg 03/09/19 10:00 03/09/19 10:42 Ecotrin - PO 162 mg DAILY JENN[facility]ER Administration Atorvastatin Calcium 40 mg 03/08/19 22:00 03/08/19 21:06 Lipitor - PO 40 mg HS [facility]ENN[facility]ER Administration Colchicine 0.6 mg 03/08/19 17:30 03/09/19 10:42 Colcrys PO 0.6 mg BIDWM [facility] Administration Furosemide 40 mg 03/09/19 06:00 03/09/19 05:53 Lasix Injection - IVPUSH 40 mg BID@0600,1400 [facility]ENN[facility]ER Administration Insulin Aspart 1 vial 03/08/19 16:30 03/09/19 12:17 Novolog Vial Sliding Scale - SQ 6 units ACHS [facility] Administration Protocol Methylprednisolone Sodium Succinate 40 mg 03/08/19 15:00 03/09/19 10:51 Solu-Medrol - IVPUSH 40 mg Q6H-IV [facility] Administration Non-Formulary Medication 15 unit 03/08/19 14:15 Insulin Aspart [Novolog] SQ ASDIR [facility] Pantoprazole Sodium 40 mg 03/09/19 10:00 03/09/19 10:42 Protonix - PO 40 mg DAILY [facility] Administration Spironolactone 25 mg 03/08/19 14:15 03/09/19 10:42 Aldactone - PO 25 mg DAILY [facility] Administration Tamsulosin HCl 0.4 mg 03/08/19 22:00 03/09/19 10:41 Flomax - PO 0.4 mg BID@0830,2200 [facility] Administration Impression 1. CKD 2. CHF 3. DM 4. obesity 5. HTN 6. dyspnea 7. HLD 8. CAD s/p cabg 9. volume overload 10. hyperkalemia Plan - increase dose of lasix - monitor lytes - cont aldactone, will increase dose of potassium remains stable - follow ua - cardiac diet - check ua - monitor output - monitor volume status closely
[2019-03-09] MEDS: FUROSEMIDE 40 MG/4 ML INJECTABLE VIAL IVPUSH SCH (14:19)
[2019-03-09] MEDS ORDERED: INSULIN (NOVOLOG) ASPART 100 UNITS/ML 10ML VIAL ONE (21:02)
[2019-03-09] MEDS: ATORVASTATIN CA 40 MG TABLET (FP) PO SCH (21:08)
[2019-03-10] MEDS: methylPREDNISolone NA SUCC 40 MG/1 ML VIAL IVPUSH SCH ×4 (02:13→22:07)
[2019-03-10] MEDS: FUROSEMIDE 40 MG/4 ML INJECTABLE VIAL IVPUSH SCH ×2 (06:05→15:50)
[2019-03-10] MEDS: INSULIN SLIDING SCALE (NOVOLOG) 1 VIAL SQ SCH ×4 (06:07→22:09)
[2019-03-10 06:56] LABS: BASO % 0.3 % (0-2.0); EOS % 0.1 % (0-4.5); HEMATOCRIT 34.6 % (35.4-49); HEMOGLOBIN 11.6 GM/dL (11.7-16.9); LYMPH % 7.8 % (8-40); MCH 28.7 pg (25.7-33.7); MCHC 33.5 g/dl (32.0-35.9); MEAN CELL VOLUME 85.9 fl (80-96); MEAN PLT VOLUME 9.4 fl (7.5-11.1); MONO % 2.6 % (3.8-10.2); NEUT % 89.2 % (42.8-82.8); PLATELET COUNT 147 K/MM3 (134-434); RBC 4.03 M/mm3 (4.00-5.60); RDW 17.6 % (11.9-15.9); WHITE BLOOD COUNT 5.7 K/mm3 (4.0-10.0)
[2019-03-10 07:21] LABS: ALBUMIN 3.2 g/dl (3.4-5.0); BILIRUBIN,TOTAL 0.6 mg/dL (0.2-1); BLOOD UREA NITROGEN 79.7 mg/dL (7-18); CREATININE 2.6 mg/dL (0.55-1.3); POTASSIUM 4.9 mmol/L (3.5-5.1); TOT PROT 6.3 g/dl (6.4-8.2)
--- NOTE | 2019-03-10 10:26 | PN ---
Progress Note (short form) - Note Progress Note: sitting in bed more comfortable today less swelling to hands and arms Vital Signs Period Temp Pulse Resp BP Sys/Whitehead Pulse Ox Last 24 Hr 97.7 F-98.7 F 61-96 18-20 126-148/66-86 96 neck supple heart s1/S2 irre lungs clear bilat and obese / soft / non tender Ext + edema CBC, BMP 03/10/19 06:30 03/10/19 06:30 CBC, BMP 03/09/19 06:20 03/09/19 06:00 Active Medications Artificial Tears (Artificial Tears) 1 drop OU Q6H PRN PRN Reason: DRY EYES Aspirin (Ecotrin -) 162 mg PO DAILY [facility] Last Admin: 03/09/19 10:42 Dose: 162 mg Atorvastatin Calcium (Lipitor -) 40 mg PO HS [facility] Last Admin: 03/09/19 21:08 Dose: 40 mg Colchicine (Colcrys) 0.6 mg PO BIDWM [facility] Last Admin: 03/09/19 17:48 Dose: 0.6 mg Furosemide (Lasix Injection -) 80 mg IVPUSH BID@0600,1400 [facility] Last Admin: 03/10/19 06:05 Dose: 80 mg Insulin Aspart (Novolog Vial Sliding Scale -) 1 vial SQ ACHS [facility]; Protocol Last Admin: 03/10/19 06:07 Dose: 4 units Methylprednisolone Sodium Succinate (Solu-Medrol -) 40 mg IVPUSH Q6H-IV [facility] Last Admin: 03/10/19 02:13 Dose: 40 mg Non-Formulary Medication (Insulin Aspart [Novolog]) 15 unit SQ ASDIR [facility] Pantoprazole Sodium (Protonix -) 40 mg PO DAILY [facility] Last Admin: 03/09/19 10:42 Dose: 40 mg Spironolactone (Aldactone -) 25 mg PO DAILY [facility] Last Admin: 03/09/19 10:42 Dose: 25 mg Tamsulosin HCl (Flomax -) 0.4 mg PO BID@0830,2200 [facility] Last Admin: 03/09/19 21:08 Dose: 0.4 mg # HF IV lasix / spironolactone / trend renal function monitor K # CKD CKD 4 / nephrology consult #HTN continue medic # DM insulin sliding scale ADA diet # GOUT colchicine BID Solumedrol # CAD s/p CABG stable # Arrhythmia hx of 1 degree HB / VPC Problem List - Problems (1) Acute on chronic diastolic (congestive) heart failure Code(s): I50.33 - ACUTE ON CHRONIC DIASTOLIC (CONGESTIVE) HEART FAILURE (2) CHF (congestive heart failure) Code(s): I50.9 - HEART FAILURE, UNSPECIFIED (3) CKD (chronic kidney disease) Code(s): N18.9 - CHRONIC KIDNEY DISEASE, UNSPECIFIED (4) CKD (chronic kidney disease) stage 3, GFR 30-59 ml/min Code(s): N18.3 - CHRONIC KIDNEY DISEASE, STAGE 3 (MODERATE) (5) Diabetes Code(s): E11.9 - TYPE 2 DIABETES MELLITUS WITHOUT COMPLICATIONS Qualifiers: Diabetes mellitus 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 use: with terminal makeup operator use Diabetes mellitus complication detail: with unspecified neuropathy (6) Electrolyte abnormality Code(s): E87.8 - OTH DISORDERS OF ELECTROLYTE AND FLUID BALANCE, NEC (7) Hx of CABG Code(s): Z95.1 - PRESENCE OF AORTOCORONARY BYPASS GRAFT (8) Hyperlipidemia Code(s): E78.5 - HYPERLIPIDEMIA, UNSPECIFIED (9) Inflammatory arthritis Code(s): M19.90 - UNSPECIFIED OSTEOARTHRITIS, UNSPECIFIED SITE (10) Leg edema Code(s): R60.0 - LOCALIZED EDEMA (11) Morbid obesity Code(s): E66.01 - MORBID (SEVERE) OBESITY DUE TO EXCESS CALORIES (12) Spinal stenosis of lumbar region Code(s): M48.06 - SPINAL STENOSIS, LUMBAR REGION * DO NOT USE * (13) Swelling of joint, wrist, right Code(s): M25.431 - EFFUSION, RIGHT WRIST
--- NOTE | 2019-03-10 10:44 | PN ---
Progress Note (short form) - Note Progress Note: s: edema, sob improving. no chest pain, palps, dizziness. hand pain improving. Current Medications Artificial Tears (Artificial Tears) 1 drop OU Q6H PRN PRN Reason: DRY EYES Aspirin (Ecotrin -) 162 mg PO DAILY [facility] Last Admin: 03/09/19 10:42 Dose: 162 mg Atorvastatin Calcium (Lipitor -) 40 mg PO HS [facility] Last Admin: 03/09/19 21:08 Dose: 40 mg Colchicine (Colcrys) 0.6 mg PO BIDWM [facility] Last Admin: 03/09/19 17:48 Dose: 0.6 mg Furosemide (Lasix Injection -) 80 mg IVPUSH BID@0600,1400 [facility] Last Admin: 03/10/19 06:05 Dose: 80 mg Insulin Aspart (Novolog Vial Sliding Scale -) 1 vial SQ ACHS [facility]; Protocol Last Admin: 03/10/19 06:07 Dose: 4 units Methylprednisolone Sodium Succinate (Solu-Medrol -) 40 mg IVPUSH Q6H-IV [facility] Last Admin: 03/10/19 02:13 Dose: 40 mg Non-Formulary Medication (Insulin Aspart [Novolog]) 15 unit SQ ASDIR [facility] Pantoprazole Sodium (Protonix -) 40 mg PO DAILY [facility] Last Admin: 03/09/19 10:42 Dose: 40 mg Spironolactone (Aldactone -) 25 mg PO DAILY [facility] Last Admin: 03/09/19 10:42 Dose: 25 mg Tamsulosin HCl (Flomax -) 0.4 mg PO BID@0830,2200 [facility] Last Admin: 03/09/19 21:08 Dose: 0.4 mg Vital Signs Period Temp Pulse Resp BP Sys/Whitehead Pulse Ox Last 24 Hr 97.7 F-98.7 F 61-96 18-20 126-148/66-86 96 Constitutional: Yes: Well Nourished, No Distress, Calm Eyes: Yes: Conjunctiva Clear Neck: Yes: Supple, Trachea Midline Respiratory: Yes: Regular, nl eff Rales (tristan bases) Gastrointestinal: Yes: Normal Bowel Sounds, Soft Cardiovascular: Yes: Pulse Irregular JVD: Yes Carotid Bruit: No PMI: Non-Displaced Heart Sounds: Yes: S1, S2 Extremities: No: Cold Edema: Yes Edema: LLE: 3+, RLE: 3+ Integumentary: No: Jaundice Neurological: Yes: Alert, Oriented Psychiatric: not agitated echo 06/2017: mild dec lvef, nl rv, mild mr, mild-mod tr, rvsp 40-50, mild ar, mild pr mibi 04/2018: mild nonextensive apical ischemia. anterolateral scar, lvef 43 cxr: congestive changes tele: sinus, first deg AVB, PVCs a/p: 78 m hx cad, mi x2, cabg 2012, pci x2 2016, mobitz I, dchf, copd, dm, htn , hld, ckd here with sob, le edema. acute on chronic diastolic chf: -cont iv lasix - daily wts, chem7 -cont aldactone gout - manage per primary, on solumedrol and colchicine CKD, hyperkalemia - K improved -renal following, monitor Cr with lasix cad: -stable, no signs acs -cont asa, statin -recent stress test with low risk findings, continue current medical management of cad. abnl ecg, jennifer 1: -chronic finding, stable htn: -cont current meds hld: -cont statin
[2019-03-10] MEDS: SPIRONOLACTONE 25 MG TABLET (FP) PO SCH (11:01)
[2019-03-10] MEDS: COLCHICINE 0.6 MG CAP PO SCH ×2 (11:01→17:54)
[2019-03-10] MEDS: ASPIRIN COATED 81 MG TABLET.EC PO SCH (11:01)
[2019-03-10] MEDS: PANTOPRAZOLE 40 MG TABLET (FP) PO SCH (11:01)
[2019-03-10] MEDS: TAMSULOSIN HCL 0.4 MG CAP PO SCH ×2 (11:01→22:06)
--- NOTE | 2019-03-10 11:40 | PN ---
Progress Note, Physician History of Present Illness: Pt seen and examined at bedside. he feels that his edema is improving. He still gets sob with ambulation. - Current Medication List Current Medications: Active Medications Artificial Tears (Artificial Tears) 1 drop OU Q6H PRN PRN Reason: DRY EYES Aspirin (Ecotrin -) 162 mg PO DAILY [facility] Last Admin: 03/10/19 11:01 Dose: 162 mg Atorvastatin Calcium (Lipitor -) 40 mg PO HS [facility] Last Admin: 03/09/19 21:08 Dose: 40 mg Colchicine (Colcrys) 0.6 mg PO BIDWM [facility] Last Admin: 03/10/19 11:01 Dose: 0.6 mg Furosemide (Lasix Injection -) 80 mg IVPUSH BID@0600,1400 [facility] Last Admin: 03/10/19 06:05 Dose: 80 mg Insulin Aspart (Novolog Vial Sliding Scale -) 1 vial SQ ACHS [facility]; Protocol Last Admin: 03/10/19 06:07 Dose: 4 units Methylprednisolone Sodium Succinate (Solu-Medrol -) 40 mg IVPUSH Q6H-IV [facility] Last Admin: 03/10/19 11:01 Dose: 40 mg Non-Formulary Medication (Insulin Aspart [Novolog]) 15 unit SQ ASDIR [facility] Pantoprazole Sodium (Protonix -) 40 mg PO DAILY [facility] Last Admin: 03/10/19 11:01 Dose: 40 mg Spironolactone (Aldactone -) 25 mg PO DAILY [facility] Last Admin: 03/10/19 11:01 Dose: 25 mg Tamsulosin HCl (Flomax -) 0.4 mg PO BID@0830,2200 [facility] Last Admin: 03/10/19 11:01 Dose: 0.4 mg - Objective Vital Signs: Vital Signs Temperature 97.8 F 03/10/19 05:58 Pulse Rate 82 03/10/19 05:58 Respiratory Rate 20 03/10/19 05:58 Blood Pressure 126/70 03/10/19 05:58 O2 Sat by Pulse Oximetry (%) 96 03/09/19 20:15 Constitutional: Yes: Calm Eyes: Yes: Conjunctiva Clear HENT: Yes: Atraumatic Cardiovascular: Yes: S1, S2 Respiratory: Yes: CTA Bilaterally Gastrointestinal: Yes: Soft Genitourinary: Yes: WNL Edema: Yes Edema: LUE: 1+, RUE: 1+, LLE: 2+, RLE: 2+ Neurological: Yes: Oriented Psychiatric: Yes: Oriented Labs: CBC, BMP 03/10/19 06:30 03/10/19 06:30 Assessment/Plan Current Medications Generic Name Dose Route Start Last Admin Trade Name [place] PRN Reason Stop Dose Admin Artificial Tears 1 drop 03/08/19 14:09 Artificial Tears OU Q6H PRN DRY EYES Aspirin 162 mg 03/09/19 10:00 03/10/19 11:01 Ecotrin - PO 162 mg DAILY [facility] Administration Atorvastatin Calcium 40 mg 03/08/19 22:00 03/09/19 21:08 Lipitor - PO 40 mg HS [facility] Administration Colchicine 0.6 mg 03/08/19 17:30 03/10/19 11:01 Colcrys PO 0.6 mg BIDWM [facility] Administration Furosemide 80 mg 03/09/19 12:42 03/10/19 06:05 Lasix Injection - IVPUSH 80 mg BID@0600,1400 [facility] Administration Insulin Aspart 1 vial 03/08/19 16:30 03/10/19 06:07 Novolog Vial Sliding Scale - SQ 4 units ACHS [facility] Administration Protocol Methylprednisolone Sodium Succinate 40 mg 03/08/19 15:00 03/10/19 11:01 Solu-Medrol - IVPUSH 40 mg Q6H-IV [facility] Administration Non-Formulary Medication 15 unit 03/08/19 14:15 Insulin Aspart [Novolog] SQ ASDIR [facility] Pantoprazole Sodium 40 mg 03/09/19 10:00 03/10/19 11:01 Protonix - PO 40 mg DAILY [facility] Administration Spironolactone 25 mg 03/08/19 14:15 03/10/19 11:01 Aldactone - PO 25 mg DAILY [facility] Administration Tamsulosin HCl 0.4 mg 03/08/19 22:00 03/10/19 11:01 Flomax - PO 0.4 mg BID@0830,2200 [facility] Administration Impression 1. CKD 2. CHF 3. DM 4. obesity 5. HTN 6. dyspnea 7. HLD 8. CAD s/p cabg 9. volume overload 10. hyperkalemia Plan - change lasix to 60 bid - cont to monitor renal function - cont 25 of aldactone - repeat labs in am - volume status is improving - follow ua - check ua - monitor output - monitor volume status closely
[2019-03-10] MEDS ORDERED: FLU VACCINE QUAD 60 MCG/0.5 ML (MDV 19-20) IM ONE (17:45)
[2019-03-10] MEDS: ATORVASTATIN CA 40 MG TABLET (FP) PO SCH (22:07)
[2019-03-11] MEDS: methylPREDNISolone NA SUCC 40 MG/1 ML VIAL IVPUSH SCH ×4 (02:25→21:53)
[2019-03-11] MEDS: INSULIN SLIDING SCALE (NOVOLOG) 1 VIAL SQ SCH ×4 (06:50→21:54)
[2019-03-11] MEDS: FUROSEMIDE 40 MG/4 ML INJECTABLE VIAL IVPUSH SCH ×2 (06:50→14:26)
[2019-03-11 07:10] LABS: BASO % 0.2 % (0-2.0); EOS % 0.6 % (0-4.5); HEMATOCRIT 34.7 % (35.4-49); HEMOGLOBIN 11.6 GM/dL (11.7-16.9); LYMPH % 6.1 % (8-40); MCH 28.5 pg (25.7-33.7); MCHC 33.4 g/dl (32.0-35.9); MEAN CELL VOLUME 85.3 fl (80-96); MEAN PLT VOLUME 9.5 fl (7.5-11.1); MONO % 2.6 % (3.8-10.2); NEUT % 90.5 % (42.8-82.8); PLATELET COUNT 134 K/MM3 (134-434); RBC 4.07 M/mm3 (4.00-5.60); RDW 17.4 % (11.9-15.9); WHITE BLOOD COUNT 4.4 K/mm3 (4.0-10.0)
[2019-03-11 07:53] LABS: BLOOD UREA NITROGEN 82.8 mg/dL (7-18); CALCIUM 8.7 mg/dL (8.5-10.1); CREATININE 2.4 mg/dL (0.55-1.3); POTASSIUM 4.7 mmol/L (3.5-5.1)
[2019-03-11] MEDS: TAMSULOSIN HCL 0.4 MG CAP PO SCH ×2 (08:35→21:53)
[2019-03-11] MEDS: COLCHICINE 0.6 MG CAP PO SCH ×2 (08:35→21:55)
[2019-03-11] MEDS: SPIRONOLACTONE 25 MG TABLET (FP) PO SCH (09:16)
[2019-03-11] MEDS: ASPIRIN COATED 81 MG TABLET.EC PO SCH (09:16)
[2019-03-11] MEDS: PANTOPRAZOLE 40 MG TABLET (FP) PO SCH (09:16)
--- NOTE | 2019-03-11 10:10 | PN ---
Progress Note (short form) - Note Progress Note: 78 y/o male found sitting in room. States SOB improved. Denies pain. Vital Signs Period Temp Pulse Resp BP Sys/Whitehead Pulse Ox Last 24 Hr 97.3 F-98.2 F 54-105 15-20 112-159/60-97 97 CBC, BMP 03/11/19 06:40 03/11/19 06:40 HEENT- NL Neck- Supple Lungs- CTAB Heart- S1/S2 Abd- Soft, NT Ext- 1+pitting edema B/L Active Medications Artificial Tears (Artificial Tears) 1 drop OU Q6H PRN PRN Reason: DRY EYES Aspirin (Ecotrin -) 162 mg PO DAILY [facility] Last Admin: 03/11/19 09:16 Dose: 162 mg Atorvastatin Calcium (Lipitor -) 40 mg PO HS [facility] Last Admin: 03/10/19 22:07 Dose: 40 mg Colchicine (Colcrys) 0.6 mg PO BIDWM [facility] Last Admin: 03/11/19 08:35 Dose: 0.6 mg Furosemide (Lasix Injection -) 60 mg IVPUSH BID@0600,1400 [facility] Last Admin: 03/11/19 06:50 Dose: 60 mg Insulin Aspart (Novolog Vial Sliding Scale -) 1 vial SQ ACHS [facility]; Protocol Last Admin: 03/11/19 06:50 Dose: 2 units Methylprednisolone Sodium Succinate (Solu-Medrol -) 40 mg IVPUSH Q6H-IV [facility] Last Admin: 03/11/19 08:35 Dose: 40 mg Non-Formulary Medication (Insulin Aspart [Novolog]) 15 unit SQ ASDIR [facility] Pantoprazole Sodium (Protonix -) 40 mg PO DAILY [facility] Last Admin: 03/11/19 09:16 Dose: 40 mg Spironolactone (Aldactone -) 25 mg PO DAILY [facility] Last Admin: 03/11/19 09:16 Dose: 25 mg Tamsulosin HCl (Flomax -) 0.4 mg PO BID@0830,2200 [facility] Last Admin: 03/11/19 08:35 Dose: 0.4 mg # HF IV lasix / spironolactone trend renal function monitor K- 4.7 today daily weights- 251 lbs # CKD CKD 4 / appreciate nephrology #HTN continue diuretics # DM insulin Novolog sliding scale ADA diet # GOUT colchicine BID Solumedrol # CAD s/p CABG stable # Arrhythmia hx of 1 degree HB / VPC cont telemetry Problem List - Problems (1) Acute on chronic diastolic (congestive) heart failure Code(s): I50.33 - ACUTE ON CHRONIC DIASTOLIC (CONGESTIVE) HEART FAILURE (2) CHF (congestive heart failure) Code(s): I50.9 - HEART FAILURE, UNSPECIFIED (3) CKD (chronic kidney disease) Code(s): N18.9 - CHRONIC KIDNEY DISEASE, UNSPECIFIED (4) CKD (chronic kidney disease) stage 3, GFR 30-59 ml/min Code(s): N18.3 - CHRONIC KIDNEY DISEASE, STAGE 3 (MODERATE) (5) Diabetes Code(s): E11.9 - TYPE 2 DIABETES MELLITUS WITHOUT COMPLICATIONS Qualifiers: Diabetes mellitus fpc insulin use: with 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 truck driver use Diabetes mellitus complication detail: with unspecified neuropathy (6) Electrolyte abnormality Code(s): E87.8 - OTH DISORDERS OF ELECTROLYTE AND FLUID BALANCE, NEC (7) Hx of CABG Code(s): Z95.1 - PRESENCE OF AORTOCORONARY BYPASS GRAFT (8) Hyperlipidemia Code(s): E78.5 - HYPERLIPIDEMIA, UNSPECIFIED (9) Inflammatory arthritis Code(s): M19.90 - UNSPECIFIED OSTEOARTHRITIS, UNSPECIFIED SITE (10) Leg edema Code(s): R60.0 - LOCALIZED EDEMA (11) Morbid obesity Code(s): E66.01 - MORBID (SEVERE) OBESITY DUE TO EXCESS CALORIES (12) Spinal stenosis of lumbar region Code(s): M48.06 - SPINAL STENOSIS, LUMBAR REGION * DO NOT USE * (13) Swelling of joint, wrist, right Code(s): M25.431 - EFFUSION, RIGHT WRIST
--- NOTE | 2019-03-11 11:26 | PN ---
Progress Note (short form) - Note Progress Note: s: edema, sob improving. no chest pain, palps, dizziness. Current Medications Generic Name Dose Route Start Last Admin Trade Name Freq PRN Reason Stop Dose Admin Artificial Tears 1 drop 03/08/19 14:09 Artificial Tears OU Q6H PRN DRY EYES Aspirin 162 mg 03/09/19 10:00 03/11/19 09:16 Ecotrin - PO 162 mg DAILY [facility] Administration Atorvastatin Calcium 40 mg 03/08/19 22:00 03/10/19 22:07 Lipitor - PO 40 mg HS [facility] Administration Colchicine 0.6 mg 03/08/19 17:30 03/11/19 08:35 Colcrys PO 0.6 mg BIDWM [facility] Administration Furosemide 60 mg 03/10/19 11:40 03/11/19 06:50 Lasix Injection - IVPUSH 60 mg BID@0600,1400 [facility] Administration Insulin Aspart 1 vial 03/08/19 16:30 03/11/19 06:50 Novolog Vial Sliding Scale - SQ 2 units ACHS [facility] Administration Protocol Methylprednisolone Sodium Succinate 40 mg 03/08/19 15:00 03/11/19 08:35 Solu-Medrol - IVPUSH 40 mg Q6H-IV [facility] Administration Non-Formulary Medication 15 unit 03/08/19 14:15 Insulin Aspart [Novolog] SQ ASDIR [facility] Pantoprazole Sodium 40 mg 03/09/19 10:00 03/11/19 09:16 Protonix - PO 40 mg DAILY [facility] Administration Spironolactone 25 mg 03/08/19 14:15 03/11/19 09:16 Aldactone - PO 25 mg DAILY [facility] Administration Tamsulosin HCl 0.4 mg 03/08/19 22:00 03/11/19 08:35 Flomax - PO 0.4 mg BID@0830,2200 [facility] Administration Vital Signs Period Temp Pulse Resp BP Sys/Whitehead Pulse Ox Last 24 Hr 97.3 F-98.2 F 54-105 15-20 112-159/60-97 97 Constitutional: Yes: Well Nourished, No Distress, Calm Eyes: Yes: Conjunctiva Clear Neck: Yes: Supple, Trachea Midline Respiratory: Yes: Regular, nl eff Rales ([place] bases) Gastrointestinal: Yes: Normal Bowel Sounds, Soft Cardiovascular: Yes: Pulse Irregular JVD: Yes Carotid Bruit: No PMI: Non-Displaced Heart Sounds: Yes: S1, S2 Extremities: No: Cold Edema: Yes Edema: LLE: 2+, RLE: 2+ Integumentary: No: Jaundice Neurological: Yes: Alert, Oriented Psychiatric: not agitated CBC, BMP 03/11/19 06:40 03/11/19 06:40 echo 06/2017: mild dec lvef, nl rv, mild mr, mild-mod tr, rvsp 40-50, mild ar, mild pr mibi 04/2018: mild nonextensive apical ischemia. anterolateral scar, lvef 43 cxr: congestive changes tele: sinus, PVCs a/p: 78 m hx cad, mi x2, cabg 2012, pci x2 2017, mobitz I, dchf, copd, dm, htn , hld, ckd here with sob, le edema. acute on chronic diastolic chf: -vol improving, cont iv lasix -daily wts, chem7 -cont aldactone gout - manage per primary, on solumedrol and colchicine CKD, hyperkalemia - K improved -renal following, monitor Cr with lasix cad: -stable, no signs acs -cont asa, statin -recent stress test with low risk findings, continue current medical management of cad. abnl ecg, jennifer 1: -chronic finding, stable htn: -cont current meds hld: -cont statin
--- NOTE | 2019-03-11 15:08 | PN ---
Progress Note, Physician History of Present Illness: Pt seen and examined at bedside. He is awake and alert. he feels that the edema is improving. - Current Medication List Current Medications: Active Medications Artificial Tears (Artificial Tears) 1 drop OU Q6H PRN PRN Reason: DRY EYES Aspirin (Ecotrin -) 162 mg PO DAILY [facility] Last Admin: 03/11/19 09:16 Dose: 162 mg Atorvastatin Calcium (Lipitor -) 40 mg PO HS [facility] Last Admin: 03/10/19 22:07 Dose: 40 mg Colchicine (Colcrys) 0.6 mg PO BIDWM [facility] Last Admin: 03/11/19 08:35 Dose: 0.6 mg Furosemide (Lasix Injection -) 60 mg IVPUSH BID@0600,1400 [facility] Last Admin: 03/11/19 14:26 Dose: 60 mg Insulin Aspart (Novolog Vial Sliding Scale -) 1 vial SQ ACHS [facility]; Protocol Last Admin: 03/11/19 11:42 Dose: 10 units Methylprednisolone Sodium Succinate (Solu-Medrol -) 40 mg IVPUSH Q6H-IV [facility] Last Admin: 03/11/19 14:26 Dose: 40 mg Non-Formulary Medication (Insulin Aspart [Novolog]) 15 unit SQ ASDIR [facility] Pantoprazole Sodium (Protonix -) 40 mg PO DAILY [facility] Last Admin: 03/11/19 09:16 Dose: 40 mg Spironolactone (Aldactone -) 25 mg PO DAILY [facility] Last Admin: 03/11/19 09:16 Dose: 25 mg Tamsulosin HCl (Flomax -) 0.4 mg PO BID@0830,2200 [facility] Last Admin: 03/11/19 08:35 Dose: 0.4 mg - Objective Vital Signs: Vital Signs Temperature 97.9 F 03/11/19 14:00 Pulse Rate 93 H 03/11/19 14:00 Respiratory Rate 16 03/11/19 14:00 Blood Pressure 158/86 03/11/19 14:00 O2 Sat by Pulse Oximetry (%) 97 03/11/19 09:00 Constitutional: Yes: Calm Eyes: Yes: Conjunctiva Clear HENT: Yes: Atraumatic Neck: Yes: Supple Cardiovascular: Yes: S1, S2 Respiratory: Yes: CTA Bilaterally Gastrointestinal: Yes: Soft Genitourinary: Yes: WNL Edema: Yes Edema: LUE: Trace, RUE: Trace, LLE: 2+, RLE: 2+ Neurological: Yes: Oriented Psychiatric: Yes: Oriented Labs: CBC, BMP 03/11/19 06:40 03/11/19 06:40 Problem List - Problems (1) Acute on chronic diastolic (congestive) heart failure Code(s): I50.33 - ACUTE ON CHRONIC DIASTOLIC (CONGESTIVE) HEART FAILURE (2) CKD (chronic kidney disease) Code(s): N18.9 - CHRONIC KIDNEY DISEASE, UNSPECIFIED Assessment/Plan Current Medications Generic Name Dose Route Start Last Admin Trade Name Freq PRN Reason Stop Dose Admin Artificial Tears 1 drop 03/08/19 14:09 Artificial Tears OU Q6H PRN DRY EYES Aspirin 162 mg 03/09/19 10:00 03/11/19 09:16 Ecotrin - PO 162 mg DAILY [facility] Administration Atorvastatin Calcium 40 mg 03/08/19 22:00 03/10/19 22:07 Lipitor - PO 40 mg HS [facility] Administration Colchicine 0.6 mg 03/08/19 17:30 03/11/19 08:35 Colcrys PO 0.6 mg BIDWM [facility] Administration Furosemide 60 mg 03/10/19 11:40 03/11/19 14:26 Lasix Injection - IVPUSH 60 mg BID@0600,1400 [facility] Administration Insulin Aspart 1 vial 03/08/19 16:30 03/11/19 11:42 Novolog Vial Sliding Scale - SQ 10 units ACHS [facility] Administration Protocol Methylprednisolone Sodium Succinate 40 mg 03/08/19 15:00 03/11/19 14:26 Solu-Medrol - IVPUSH 40 mg Q6H-IV [facility] Administration Non-Formulary Medication 15 unit 03/08/19 14:15 Insulin Aspart [Novolog] SQ ASDIR [facility] Pantoprazole Sodium 40 mg 03/09/19 10:00 03/11/19 09:16 Protonix - PO 40 mg DAILY [facility] Administration Spironolactone 25 mg 03/08/19 14:15 03/11/19 09:16 Aldactone - PO 25 mg DAILY [facility] Administration Tamsulosin HCl 0.4 mg 03/08/19 22:00 03/11/19 08:35 Flomax - PO 0.4 mg BID@0830,2200 [facility] Administration Impression 1. CKD 2. CHF 3. DM 4. obesity 5. HTN 6. dyspnea 7. HLD 8. CAD s/p cabg 9. volume overload 10. hyperkalemia Plan - cont with lasix - repeat labs in am - potassium stable - will re-odder ua - monitor output - monitor volume status closely
[2019-03-11] MEDS: ATORVASTATIN CA 40 MG TABLET (FP) PO SCH (21:53)
[2019-03-12] MEDS: methylPREDNISolone NA SUCC 40 MG/1 ML VIAL IVPUSH SCH ×4 (04:00→21:37)
[2019-03-12] MEDS: INSULIN SLIDING SCALE (NOVOLOG) 1 VIAL SQ SCH ×4 (06:35→21:38)
[2019-03-12] MEDS: FUROSEMIDE 40 MG/4 ML INJECTABLE VIAL IVPUSH SCH ×2 (06:35→14:01)
[2019-03-12 06:39] LABS: BASO % 0.2 % (0-2.0); HEMATOCRIT 36.7 % (35.4-49); LYMPH % 4.6 % (8-40); MCHC 32.7 g/dl (32.0-35.9); MEAN CELL VOLUME 85.9 fl (80-96); MEAN PLT VOLUME 9.6 fl (7.5-11.1); MONO % 2.6 % (3.8-10.2); NEUT % 92.6 % (42.8-82.8); PLATELET COUNT 144 K/MM3 (134-434); RBC 4.28 M/mm3 (4.00-5.60); RDW 17.3 % (11.9-15.9); WHITE BLOOD COUNT 5.3 K/mm3 (4.0-10.0)
[2019-03-12 07:04] LABS: ALBUMIN 3.3 g/dl (3.4-5.0); BILIRUBIN,TOTAL 0.7 mg/dL (0.2-1); BLOOD UREA NITROGEN 83.4 mg/dL (7-18); CALCIUM 8.5 mg/dL (8.5-10.1); CREATININE 2.4 mg/dL (0.55-1.3); POTASSIUM 4.2 mmol/L (3.5-5.1); TOT PROT 6.1 g/dl (6.4-8.2); URIC ACID 12.3 mg/dL (2.6-7.2)
--- NOTE | 2019-03-12 09:11 | PN ---
Progress Note, Physician Chief Complaint: weight is down Feeling less SOB Edema improving TELE: Lynda Ortega - Current Medication List Current Medications: Active Medications Artificial Tears (Artificial Tears) 1 drop OU Q6H PRN PRN Reason: DRY EYES Aspirin (Ecotrin -) 162 mg PO DAILY [facility] Last Admin: 03/11/19 09:16 Dose: 162 mg Atorvastatin Calcium (Lipitor -) 40 mg PO HS [facility] Last Admin: 03/11/19 21:53 Dose: 40 mg Colchicine (Colcrys) 0.6 mg PO BIDWM [facility] Last Admin: 03/11/19 21:55 Dose: Not Given Furosemide (Lasix Injection -) 60 mg IVPUSH BID@0600,1400 [facility] Last Admin: 03/12/19 06:35 Dose: 60 mg Insulin Aspart (Novolog Vial Sliding Scale -) 1 vial SQ ACHS [facility]; Protocol Last Admin: 03/12/19 06:35 Dose: 4 units Methylprednisolone Sodium Succinate (Solu-Medrol -) 40 mg IVPUSH Q6H-IV [facility] Last Admin: 03/12/19 04:00 Dose: 40 mg Non-Formulary Medication (Insulin Aspart [Novolog]) 15 unit SQ ASDIR [facility] Pantoprazole Sodium (Protonix -) 40 mg PO DAILY [facility] Last Admin: 03/11/19 09:16 Dose: 40 mg Spironolactone (Aldactone -) 25 mg PO DAILY [facility] Last Admin: 03/11/19 09:16 Dose: 25 mg Tamsulosin HCl (Flomax -) 0.4 mg PO BID@0830,2200 [facility] Last Admin: 03/11/19 21:53 Dose: 0.4 mg - Objective Vital Signs: Vital Signs Temperature 97.9 F 03/12/19 05:37 Pulse Rate 66 03/12/19 05:37 Respiratory Rate 18 03/12/19 05:37 Blood Pressure 142/72 03/12/19 05:37 O2 Sat by Pulse Oximetry (%) 97 03/11/19 21:00 Constitutional: Yes: No Distress Cardiovascular: Yes: Pulse Irregular Respiratory: Yes: Other (faint rales left base.) Gastrointestinal: Yes: Soft, Abdomen, Obese Edema: Yes Edema: LLE: 2+, RLE: 2+ Neurological: Yes: Alert, Oriented ...Motor Strength: WNL Labs: CBC, BMP 03/12/19 06:06 03/12/19 06:06 Laboratory Tests 03/12/19 03/12/19 06:06 06:06 WBC 5.3 Hgb 12.0 Plt Count 144 Sodium 139 Potassium 4.2 BUN 83.4 H Creatinine 2.4 H - ....Imaging EKG: Image Reviewed Assessment/Plan echo 06/2017: mild dec lvef, nl rv, mild mr, mild-mod tr, rvsp 40-50, mild ar, mild pr mibi 04/2018: mild nonextensive apical ischemia. anterolateral scar, lvef 43 cxr: congestive changes tele: sinus, Mobitz I PVCs a/p: 78 m hx cad, mi x2, cabg 2012, pci x2 2017, mobitz I, dchf, copd, dm, htn , hld, ckd here with sob, le edema. Acute on chronic diastolic chf: -vol improving, cont iv lasix, creat stable. -daily wts, chem7 -cont aldactone Gout: - manage per primary, on solumedrol and colchicine CKD, hyperkalemia: - K improved -renal following, monitor Cr with lasix CAD: -stable, no signs acs -cont asa, statin -recent stress test with low risk findings, continue current medical management of cad. Abnl ecg, akiraitz 1: -chronic finding, stable HTN: -cont current meds HLD: -cont statin
[2019-03-12] MEDS: PANTOPRAZOLE 40 MG TABLET (FP) PO SCH (09:16)
[2019-03-12] MEDS: COLCHICINE 0.6 MG CAP PO SCH ×2 (09:16→17:26)
[2019-03-12] MEDS: SPIRONOLACTONE 25 MG TABLET (FP) PO SCH ×2 (09:16→21:38)
[2019-03-12] MEDS: ASPIRIN COATED 81 MG TABLET.EC PO SCH (09:16)
[2019-03-12] MEDS: TAMSULOSIN HCL 0.4 MG CAP PO SCH ×2 (09:16→21:38)
[2019-03-12 10:26] LABS: ANISOCYTOSIS 1+; PLATELET ESTIMATE DECREASED
--- NOTE | 2019-03-12 15:21 | PN ---
Progress Note (short form) - Note Progress Note: 78 y/o male found sitting in bed. No acute distress. No SOB. Vital Signs Period Temp Pulse Resp BP Sys/Whitehead Pulse Ox Last 24 Hr 97.6 F-98.1 F 65-106 17-20 120-180/51-113 97-98 CBC, BMP 03/12/19 06:06 03/12/19 06:06 HEENT- NL Neck- Supple Lungs- CTAB Heart- S1/S2 Abd- soft,nt Ext- LE edema improving Active Medications Artificial Tears (Artificial Tears) 1 drop OU Q6H PRN PRN Reason: DRY EYES Aspirin (Ecotrin -) 162 mg PO DAILY [facility] Last Admin: 03/12/19 09:16 Dose: 162 mg Atorvastatin Calcium (Lipitor -) 40 mg PO HS [facility] Last Admin: 03/11/19 21:53 Dose: 40 mg Colchicine (Colcrys) 0.6 mg PO BIDWM [facility] Last Admin: 03/12/19 09:16 Dose: 0.6 mg Furosemide (Lasix Injection -) 60 mg IVPUSH BID@0600,1400 [facility] Last Admin: 03/12/19 14:01 Dose: 60 mg Insulin Aspart (Novolog Vial Sliding Scale -) 1 vial SQ ACHS [facility]; Protocol Last Admin: 03/12/19 11:56 Dose: 10 units Methylprednisolone Sodium Succinate (Solu-Medrol -) 40 mg IVPUSH Q6H-IV [facility] Last Admin: 03/12/19 14:14 Dose: 40 mg Non-Formulary Medication (Insulin Aspart [Novolog]) 15 unit SQ ASDIR [facility] Pantoprazole Sodium (Protonix -) 40 mg PO DAILY [facility] Last Admin: 03/12/19 09:16 Dose: 40 mg Spironolactone (Aldactone -) 25 mg PO DAILY [facility] Last Admin: 03/12/19 09:16 Dose: 25 mg Tamsulosin HCl (Flomax -) 0.4 mg PO BID@0830,2200 [facility] Last Admin: 03/12/19 09:16 Dose: 0.4 mg # HF IV lasix / spironolactone trend renal function monitor K daily weights # CKD CKD 4 / trend BUN/ creatinine appreciate nephrology #HTN Lasix and Spironolactone monitor BP # DM insulin Novolog sliding scale ADA diet # GOUT colchicine BID Solumedrol # CAD s/p CABG stable # Arrhythmia hx of 1 degree HB / VPC cont telemetry Problem List - Problems (1) Acute on chronic diastolic (congestive) heart failure Code(s): I50.33 - ACUTE ON CHRONIC DIASTOLIC (CONGESTIVE) HEART FAILURE (2) CHF (congestive heart failure) Code(s): I50.9 - HEART FAILURE, UNSPECIFIED (3) CKD (chronic kidney disease) Code(s): N18.9 - CHRONIC KIDNEY DISEASE, UNSPECIFIED (4) CKD (chronic kidney disease) stage 3, GFR 30-59 ml/min Code(s): N18.3 - CHRONIC KIDNEY DISEASE, STAGE 3 (MODERATE) (5) Diabetes Code(s): E11.9 - TYPE 2 DIABETES MELLITUS WITHOUT COMPLICATIONS Qualifiers: Diabetes mellitus 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: with intermediate school teacher use Diabetes mellitus complication detail: with unspecified neuropathy (6) Electrolyte abnormality Code(s): E87.8 - OTH DISORDERS OF ELECTROLYTE AND FLUID BALANCE, NEC (7) Hx of CABG Code(s): Z95.1 - PRESENCE OF AORTOCORONARY BYPASS GRAFT (8) Hyperlipidemia Code(s): E78.5 - HYPERLIPIDEMIA, UNSPECIFIED (9) Inflammatory arthritis Code(s): M19.90 - UNSPECIFIED OSTEOARTHRITIS, UNSPECIFIED SITE (10) Leg edema Code(s): R60.0 - LOCALIZED EDEMA (11) Morbid obesity Code(s): E66.01 - MORBID (SEVERE) OBESITY DUE TO EXCESS CALORIES (12) Spinal stenosis of lumbar region Code(s): M48.06 - SPINAL STENOSIS, LUMBAR REGION * DO NOT USE * (13) Swelling of joint, wrist, right Code(s): M25.431 - EFFUSION, RIGHT WRIST
--- NOTE | 2019-03-12 15:26 | PN ---
Progress Note, Physician History of Present Illness: Pt seen and examined at bedside. He is awake and alert. He feels that the edema in his arms is improved but not in his legs. - Current Medication List Current Medications: Active Medications Artificial Tears (Artificial Tears) 1 drop OU Q6H PRN PRN Reason: DRY EYES Aspirin (Ecotrin -) 162 mg PO DAILY [facility] Last Admin: 03/12/19 09:16 Dose: 162 mg Atorvastatin Calcium (Lipitor -) 40 mg PO HS [facility] Last Admin: 03/11/19 21:53 Dose: 40 mg Colchicine (Colcrys) 0.6 mg PO BIDWM [facility] Last Admin: 03/12/19 09:16 Dose: 0.6 mg Furosemide (Lasix Injection -) 60 mg IVPUSH BID@0600,1400 [facility] Last Admin: 03/12/19 14:01 Dose: 60 mg Insulin Aspart (Novolog Vial Sliding Scale -) 1 vial SQ ACHS [facility]; Protocol Last Admin: 03/12/19 11:56 Dose: 10 units Methylprednisolone Sodium Succinate (Solu-Medrol -) 40 mg IVPUSH Q6H-IV [facility] Last Admin: 03/12/19 14:14 Dose: 40 mg Non-Formulary Medication (Insulin Aspart [Novolog]) 15 unit SQ ASDIR [facility] Pantoprazole Sodium (Protonix -) 40 mg PO DAILY [facility] Last Admin: 03/12/19 09:16 Dose: 40 mg Spironolactone (Aldactone -) 25 mg PO DAILY [facility] Last Admin: 03/12/19 09:16 Dose: 25 mg Tamsulosin HCl (Flomax -) 0.4 mg PO BID@0830,2200 [facility] Last Admin: 03/12/19 09:16 Dose: 0.4 mg - Objective Vital Signs: Vital Signs Temperature 98.1 F 03/12/19 10:00 Pulse Rate 77 03/12/19 10:00 Respiratory Rate 20 03/12/19 10:00 Blood Pressure 120/81 03/12/19 10:00 O2 Sat by Pulse Oximetry (%) 98 03/12/19 12:31 Constitutional: Yes: Calm Eyes: Yes: Conjunctiva Clear HENT: Yes: Atraumatic Neck: Yes: Supple Cardiovascular: Yes: S1, S2 Respiratory: Yes: On Nasal O2 Gastrointestinal: Yes: Soft Musculoskeletal: Yes: WNL Edema: Yes Edema: LLE: 2+, RLE: 2+ Neurological: Yes: Oriented Psychiatric: Yes: Oriented Labs: CBC, BMP 03/12/19 06:06 03/12/19 06:06 Problem List - Problems (1) Acute on chronic diastolic (congestive) heart failure Code(s): I50.33 - ACUTE ON CHRONIC DIASTOLIC (CONGESTIVE) HEART FAILURE (2) CKD (chronic kidney disease) Code(s): N18.9 - CHRONIC KIDNEY DISEASE, UNSPECIFIED Assessment/Plan Current Medications Generic Name Dose Route Start Last Admin Trade Name Freq PRN Reason Stop Dose Admin Artificial Tears 1 drop 03/08/19 14:09 Artificial Tears OU Q6H PRN DRY EYES Aspirin 162 mg 03/09/19 10:00 03/12/19 09:16 Ecotrin - PO 162 mg DAILY [facility] Administration Atorvastatin Calcium 40 mg 03/08/19 22:00 03/11/19 21:53 Lipitor - PO 40 mg HS [facility] Administration Colchicine 0.6 mg 03/08/19 17:30 03/12/19 09:16 Colcrys PO 0.6 mg BIDWM [facility] Administration Furosemide 60 mg 03/10/19 11:40 03/12/19 14:01 Lasix Injection - IVPUSH 60 mg BID@0600,1400 [facility] Administration Insulin Aspart 1 vial 03/08/19 16:30 03/12/19 11:56 Novolog Vial Sliding Scale - SQ 10 units ACHS [facility] Administration Protocol Methylprednisolone Sodium Succinate 40 mg 03/08/19 15:00 03/12/19 14:14 Solu-Medrol - IVPUSH 40 mg Q6H-IV JENNIFER Administration Non-Formulary Medication 15 unit 03/08/19 14:15 Insulin Aspart [Novolog] SQ ASDIR JENNIFER Pantoprazole Sodium 40 mg 03/09/19 10:00 03/12/19 09:16 Protonix - PO 40 mg DAILY JENNIFER Administration Spironolactone 25 mg 03/08/19 14:15 03/12/19 09:16 Aldactone - PO 25 mg DAILY JENNIFER Administration Tamsulosin HCl 0.4 mg 03/08/19 22:00 03/12/19 09:16 Flomax - PO 0.4 mg BID@0830,2200 JENNIFER Administration Impression 1. CKD 2. CHF 3. DM 4. obesity 5. HTN 6. dyspnea 7. HLD 8. CAD s/p cabg 9. volume overload 10. hyperkalemia Plan - cont lasix - increase aldactone to bid - check ua - monitor output - monitor volume status closely
[2019-03-12 19:09] LABS: EPI CELLS 0.3 /HPF (0-5/HPF); HYALINE CASTS 1 /lpf (0-8); PH,URINE 5.5 (5.0-8.0); URINE APPEARANCE CLEAR; URINE BACTERIA 1.9 /hpf (NEGATIVE); URINE BILIRUBIN NEGATIVE (NEGATIVE); URINE COLOR YELLOW; URINE GLUCOSE (UA) 2+ (NEGATIVE); URINE KETONE NEGATIVE (NEGATIVE); URINE LEUK ESTERASE TRACE (NEGATIVE); URINE NITRITE NEGATIVE (NEGATIVE); URINE PROTEIN 1+ (NEGATIVE); URINE RBC 1 /hpf (0-4); URINE UROBILINOGEN 0.2 mg/dL (0.2-1.0); URINE WBC 1 /hpf (0-5)
[2019-03-12] MEDS: ATORVASTATIN CA 40 MG TABLET (FP) PO SCH (21:38)
[2019-03-13] MEDS: methylPREDNISolone NA SUCC 40 MG/1 ML VIAL IVPUSH SCH ×3 (02:58→14:24)
[2019-03-13] MEDS: FUROSEMIDE 40 MG/4 ML INJECTABLE VIAL IVPUSH SCH ×2 (06:11→14:24)
[2019-03-13] MEDS: INSULIN SLIDING SCALE (NOVOLOG) 1 VIAL SQ SCH ×4 (06:12→22:02)
[2019-03-13 07:38] LABS: BASO % 0.2 % (0-2.0); EOS % 0.2 % (0-4.5); HEMATOCRIT 38.9 % (35.4-49); HEMOGLOBIN 12.8 GM/dL (11.7-16.9); LYMPH % 3.4 % (8-40); MCH 28.2 pg (25.7-33.7); MCHC 32.9 g/dl (32.0-35.9); MEAN CELL VOLUME 85.5 fl (80-96); MEAN PLT VOLUME 9.5 fl (7.5-11.1); MONO % 2.6 % (3.8-10.2); NEUT % 93.6 % (42.8-82.8); PLATELET COUNT 129 K/MM3 (134-434); RBC 4.54 M/mm3 (4.00-5.60); WHITE BLOOD COUNT 5.7 K/mm3 (4.0-10.0)
[2019-03-13 08:02] LABS: ALBUMIN 3.2 g/dl (3.4-5.0); BILIRUBIN,TOTAL 0.8 mg/dL (0.2-1); CALCIUM 8.5 mg/dL (8.5-10.1); CREATININE 2.4 mg/dL (0.55-1.3)
[2019-03-13] MEDS: COLCHICINE 0.6 MG CAP PO SCH ×2 (08:34→17:05)
[2019-03-13] MEDS: TAMSULOSIN HCL 0.4 MG CAP PO SCH ×2 (08:34→22:02)
[2019-03-13 08:39] LABS: ANISOCYTOSIS 1+; PLATELET ESTIMATE DECREASED
--- NOTE | 2019-03-13 09:05 | PN ---
Progress Note, Physician History of Present Illness: No events overnight Still with dyspnea, sitting in chair Tele PACs at 75 - Current Medication List Current Medications: Active Medications Artificial Tears (Artificial Tears) 1 drop OU Q6H PRN PRN Reason: DRY EYES Aspirin (Ecotrin -) 162 mg PO DAILY [facility] Last Admin: 03/12/19 09:16 Dose: 162 mg Atorvastatin Calcium (Lipitor -) 40 mg PO HS [facility] Last Admin: 03/12/19 21:38 Dose: 40 mg Colchicine (Colcrys) 0.6 mg PO BIDWM [facility] Last Admin: 03/13/19 08:34 Dose: 0.6 mg Furosemide (Lasix Injection -) 60 mg IVPUSH BID@0600,1400 [facility] Last Admin: 03/13/19 06:11 Dose: 60 mg Insulin Aspart (Novolog Vial Sliding Scale -) 1 vial SQ ACHS [facility]; Protocol Last Admin: 03/13/19 06:12 Dose: 8 units Methylprednisolone Sodium Succinate (Solu-Medrol -) 40 mg IVPUSH Q6H-IV [facility] Last Admin: 03/13/19 08:35 Dose: 40 mg Non-Formulary Medication (Insulin Aspart [Novolog]) 15 unit SQ ASDIR [facility] Pantoprazole Sodium (Protonix -) 40 mg PO DAILY [facility] Last Admin: 03/12/19 09:16 Dose: 40 mg Spironolactone (Aldactone -) 25 mg PO BID [facility] Last Admin: 03/12/19 21:38 Dose: 25 mg Tamsulosin HCl (Flomax -) 0.4 mg PO BID@0830,2200 [facility] Last Admin: 03/13/19 08:34 Dose: 0.4 mg - Objective Vital Signs: Vital Signs Temperature 98.2 F 03/13/19 06:00 Pulse Rate 51 L 03/13/19 06:00 Respiratory Rate 20 03/13/19 06:00 Blood Pressure 169/77 03/13/19 06:00 O2 Sat by Pulse Oximetry (%) 94 L 03/12/19 21:00 Constitutional: Yes: No Distress Eyes: Yes: WNL Neck: Yes: WNL Cardiovascular: Yes: Regular Rate and Rhythm Respiratory: Yes: Rales, Wheezes Gastrointestinal: Yes: Normal Bowel Sounds Extremities: Yes: WNL Edema: LLE: 2+, RLE: 2+ Labs: CBC, BMP 03/13/19 06:50 11/16/19 06:50 Assessment/Plan a/p: 78 m hx cad, mi x2, cabg 2012, pci x2 2017, jennifer I, dchf, copd, dm, htn , hld, ckd here with sob, le edema. Acute on chronic diastolic chf: -vol improving, cont iv lasix 60mg IV BID, creat stable at 2.4 -daily wts, chem7 -cont aldactone Gout: - manage per primary, on solumedrol and colchicine CKD, hyperkalemia: - K improved, 4.0 today -renal following, monitor Cr with lasix CAD: -stable, no signs acs -cont asa, statin -recent stress test with low risk findings, continue current medical management of cad. Abnl ecg, jennifer 1: -chronic finding, stable HTN: -cont current meds HLD: -cont statin
[2019-03-13] MEDS: ASPIRIN COATED 81 MG TABLET.EC PO SCH (09:41)
[2019-03-13] MEDS: PANTOPRAZOLE 40 MG TABLET (FP) PO SCH (09:41)
[2019-03-13] MEDS: SPIRONOLACTONE 25 MG TABLET (FP) PO SCH ×2 (09:42→22:01)
--- NOTE | 2019-03-13 15:54 | PN ---
Progress Note, Physician History of Present Illness: Pt seen and examine at bedside. He is awake and alert. He feels that his edema is slowly improving. He denies chest pain. - Current Medication List Current Medications: Active Medications Artificial Tears (Artificial Tears) 1 drop OU Q6H PRN PRN Reason: DRY EYES Aspirin (Ecotrin -) 162 mg PO DAILY [facility] Last Admin: 03/13/19 09:41 Dose: 162 mg Atorvastatin Calcium (Lipitor -) 40 mg PO HS [facility] Last Admin: 03/12/19 21:38 Dose: 40 mg Colchicine (Colcrys) 0.6 mg PO BIDWM [facility] Last Admin: 03/13/19 08:34 Dose: 0.6 mg Furosemide (Lasix Injection -) 60 mg IVPUSH BID@0600,1400 [facility] Last Admin: 03/13/19 14:24 Dose: 60 mg Insulin Aspart (Novolog Vial Sliding Scale -) 1 vial SQ ACHS [facility]; Protocol Last Admin: 03/13/19 12:26 Dose: 14 units Methylprednisolone Sodium Succinate (Solu-Medrol -) 40 mg IVPUSH Q6H-IV [facility] Last Admin: 03/13/19 14:24 Dose: 40 mg Non-Formulary Medication (Insulin Aspart [Novolog]) 15 unit SQ ASDIR [facility] Pantoprazole Sodium (Protonix -) 40 mg PO DAILY [facility] Last Admin: 03/13/19 09:41 Dose: 40 mg Spironolactone (Aldactone -) 25 mg PO BID [facility] Last Admin: 03/13/19 09:42 Dose: 25 mg Tamsulosin HCl (Flomax -) 0.4 mg PO BID@0830,2200 [facility] Last Admin: 03/13/19 08:34 Dose: 0.4 mg - Objective Vital Signs: Vital Signs Temperature 98.6 F 03/13/19 14:00 Pulse Rate 51 L 03/13/19 14:00 Respiratory Rate 20 03/13/19 14:00 Blood Pressure 183/97 H 03/13/19 14:00 O2 Sat by Pulse Oximetry (%) 94 L 03/12/19 21:00 Constitutional: Yes: Calm Eyes: Yes: Conjunctiva Clear HENT: Yes: Atraumatic Neck: Yes: Supple Cardiovascular: Yes: S1, S2 Respiratory: Yes: CTA Bilaterally Gastrointestinal: Yes: Normal Bowel Sounds, Soft Genitourinary: Yes: WNL Musculoskeletal: Yes: WNL Edema: Yes Edema: LLE: 2+, RLE: 2+ Neurological: Yes: Oriented Psychiatric: Yes: Oriented Labs: CBC, BMP 03/13/19 06:50 03/13/19 06:50 Problem List - Problems (1) Acute on chronic diastolic (congestive) heart failure Code(s): I50.33 - ACUTE ON CHRONIC DIASTOLIC (CONGESTIVE) HEART FAILURE (2) CKD (chronic kidney disease) Code(s): N18.9 - CHRONIC KIDNEY DISEASE, UNSPECIFIED Assessment/Plan Current Medications Generic Name Dose Route Start Last Admin Trade Name Freq PRN Reason Stop Dose Admin Artificial Tears 1 drop 03/08/19 14:09 Artificial Tears OU Q6H PRN DRY EYES Aspirin 162 mg 03/09/19 10:00 03/13/19 09:41 Ecotrin - PO 162 mg DAILY [facility] Administration Atorvastatin Calcium 40 mg 03/08/19 22:00 03/12/19 21:38 Lipitor - PO 40 mg HS [facility]ENN[facility]ER Administration Colchicine 0.6 mg 03/08/19 17:30 03/13/19 08:34 Colcrys PO 0.6 mg BIDWM [facility]ENN[facility]ER Administration Furosemide 60 mg 03/10/19 11:40 03/13/19 14:24 Lasix Injection - IVPUSH 60 mg BID@0600,1400 [facility]ENN[facility]ER Administration Insulin Aspart 1 vial 03/08/19 16:30 03/13/19 12:26 Novolog Vial Sliding Scale - SQ 14 units ACHS [facility] Administration Protocol Methylprednisolone Sodium Succinate 40 mg 03/08/19 15:00 03/13/19 14:24 Solu-Medrol - IVPUSH 40 mg Q6H-IV [facility] Administration Non-Formulary Medication 15 unit 03/08/19 14:15 Insulin Aspart [Novolog] SQ ASDIR [facility] Pantoprazole Sodium 40 mg 03/09/19 10:00 03/13/19 09:41 Protonix - PO 40 mg DAILY [facility] Administration Spironolactone 25 mg 03/12/19 22:00 03/13/19 09:42 Aldactone - PO 25 mg BID [facility] Administration Tamsulosin HCl 0.4 mg 03/08/19 22:00 03/13/19 08:34 Flomax - PO 0.4 mg BID@0830,2200 [facility] Administration Impression 1. CKD 2. CHF 3. DM 4. obesity 5. HTN 6. dyspnea 7. HLD 8. CAD s/p cabg 9. volume overload 10. hyperkalemia Plan - cont lasix, will increase dose to 80 bid - cont aldactone - monitor potassium - monitor renal function - monitor volume status closely
--- NOTE | 2019-03-13 18:19 | PN ---
Progress Note (short form) - Note Progress Note: sitting in bed more comfortable today less swelling to hands and arms mildly dyspneic no CP Vital Signs Period Temp Pulse Resp BP Sys/Whitehead Pulse Ox Last 24 Hr 97.3 F-98.7 F 51-66 18-20 142-183/70-114 94 neck supple heart s1/S2 irre lungs clear bilat and obese / soft / non tender Ext + edema LE upper ext edema / swelling resolved CBC, BMP 03/13/19 06:50 03/13/19 06:50 CBC, BMP 03/10/19 06:30 03/10/19 06:30 Active Medications Allopurinol (Zyloprim -) 100 mg PO DAILY [facility] Artificial Tears (Artificial Tears) 1 drop OU Q6H PRN PRN Reason: DRY EYES Aspirin (Ecotrin -) 162 mg PO DAILY [facility] Last Admin: 03/13/19 09:41 Dose: 162 mg Atorvastatin Calcium (Lipitor -) 40 mg PO HS [facility] Last Admin: 03/12/19 21:38 Dose: 40 mg Colchicine (Colcrys) 0.6 mg PO BIDWM [facility] Last Admin: 03/13/19 17:05 Dose: 0.6 mg Furosemide (Lasix Injection -) 80 mg IVPUSH BID@0600,1400 [facility] Insulin Aspart (Novolog Vial Sliding Scale -) 1 vial SQ ACHS [facility]; Protocol Last Admin: 03/13/19 17:02 Dose: 8 units Methylprednisolone Sodium Succinate (Solu-Medrol -) 40 mg IVPUSH Q8H-IV [facility] Non-Formulary Medication (Insulin Aspart [Novolog]) 15 unit SQ ASDIR [facility] Pantoprazole Sodium (Protonix -) 40 mg PO DAILY [facility] Last Admin: 03/13/19 09:41 Dose: 40 mg Spironolactone (Aldactone -) 25 mg PO BID [facility] Last Admin: 03/13/19 09:42 Dose: 25 mg Tamsulosin HCl (Flomax -) 0.4 mg PO BID@0830,2200 [facility] Last Admin: 03/13/19 08:34 Dose: 0.4 mg # HF IV lasix / spironolactone / slowly improving but still with ++edema LE trend renal function -- has remained stable -in spite of increased lasix monitor K # CKD CKD 4 / nephrology consult and follow up appreciated #HTN continue meds # DM insulin sliding scale ADA diet # GOUT colchicine BID Solumedrol taper # CAD s/p CABG stable # Arrhythmia hx of 1 degree HB / VPC Problem List - Problems (1) Acute on chronic diastolic (congestive) heart failure Code(s): I50.33 - ACUTE ON CHRONIC DIASTOLIC (CONGESTIVE) HEART FAILURE (2) CHF (congestive heart failure) Code(s): I50.9 - HEART FAILURE, UNSPECIFIED (3) CKD (chronic kidney disease) Code(s): N18.9 - CHRONIC KIDNEY DISEASE, UNSPECIFIED (4) CKD (chronic kidney disease) stage 3, GFR 30-59 ml/min Code(s): N18.3 - CHRONIC KIDNEY DISEASE, STAGE 3 (MODERATE) (5) Diabetes Code(s): E11.9 - TYPE 2 DIABETES MELLITUS WITHOUT COMPLICATIONS Qualifiers: Diabetes mellitus nursing home insulin use: with intermodal customer service use Diabetes mellitus complication detail: with unspecified neuropathy (6) Electrolyte abnormality Code(s): E87.8 - OTH DISORDERS OF ELECTROLYTE AND FLUID BALANCE, NEC (7) Hx of CABG Code(s): Z95.1 - PRESENCE OF AORTOCORONARY BYPASS GRAFT (8) Hyperlipidemia Code(s): E78.5 - HYPERLIPIDEMIA, UNSPECIFIED (9) Inflammatory arthritis Code(s): M19.90 - UNSPECIFIED OSTEOARTHRITIS, UNSPECIFIED SITE (10) Leg edema Code(s): R60.0 - LOCALIZED EDEMA (11) Morbid obesity Code(s): E66.01 - MORBID (SEVERE) OBESITY DUE TO EXCESS CALORIES (12) Spinal stenosis of lumbar region Code(s): M48.06 - SPINAL STENOSIS, LUMBAR REGION * DO NOT USE * (13) Swelling of joint, wrist, right Code(s): M25.431 - EFFUSION, RIGHT WRIST
[2019-03-13] MEDS: ATORVASTATIN CA 40 MG TABLET (FP) PO SCH (22:01)
[2019-03-14] MEDS: methylPREDNISolone NA SUCC 40 MG/1 ML VIAL IVPUSH SCH ×2 (01:12→09:14)
[2019-03-14] MEDS: FUROSEMIDE 40 MG/4 ML INJECTABLE VIAL IVPUSH SCH ×2 (05:38→13:06)
[2019-03-14] MEDS: INSULIN SLIDING SCALE (NOVOLOG) 1 VIAL SQ SCH ×4 (06:06→22:22)
[2019-03-14 07:53] LABS: ALBUMIN 3.2 g/dl (3.4-5.0); BILIRUBIN,TOTAL 0.8 mg/dL (0.2-1); BLOOD UREA NITROGEN 76.4 mg/dL (7-18); CALCIUM 8.5 mg/dL (8.5-10.1); CREATININE 2.4 mg/dL (0.55-1.3)
[2019-03-14] MEDS: SPIRONOLACTONE 25 MG TABLET (FP) PO SCH ×2 (09:14→22:21)
[2019-03-14] MEDS: ALLOPURINOL 100 MG TABLET (FP) PO SCH (09:14)
[2019-03-14] MEDS: ASPIRIN COATED 81 MG TABLET.EC PO SCH (09:14)
[2019-03-14] MEDS: PANTOPRAZOLE 40 MG TABLET (FP) PO SCH (09:14)
[2019-03-14] MEDS: TAMSULOSIN HCL 0.4 MG CAP PO SCH ×2 (09:14→22:21)
[2019-03-14] MEDS: COLCHICINE 0.6 MG CAP PO SCH ×2 (09:14→17:20)
--- NOTE | 2019-03-14 09:28 | PN ---
Progress Note, Physician History of Present Illness: No CV complaints overnight Tele: SR 70s - Current Medication List Current Medications: Active Medications Allopurinol (Zyloprim -) 100 mg PO DAILY [facility] Last Admin: 03/14/19 09:14 Dose: 100 mg Artificial Tears (Artificial Tears) 1 drop OU Q6H PRN PRN Reason: DRY EYES Aspirin (Ecotrin -) 162 mg PO DAILY [facility] Last Admin: 03/14/19 09:14 Dose: 162 mg Atorvastatin Calcium (Lipitor -) 40 mg PO HS [facility] Last Admin: 03/13/19 22:01 Dose: 40 mg Colchicine (Colcrys) 0.6 mg PO BIDWM [facility] Last Admin: 03/14/19 09:14 Dose: 0.6 mg Furosemide (Lasix Injection -) 80 mg IVPUSH BID@0600,1400 [facility] Last Admin: 03/14/19 05:38 Dose: 80 mg Insulin Aspart (Novolog Vial Sliding Scale -) 1 vial SQ [facility]; Protocol Last Admin: 03/14/19 06:06 Dose: 6 units Methylprednisolone Sodium Succinate (Solu-Medrol -) 40 mg IVPUSH Q8H-IV [facility] Last Admin: 03/14/19 09:14 Dose: 40 mg Non-Formulary Medication (Insulin Aspart [Novolog]) 15 unit SQ ASDIR [facility] Pantoprazole Sodium (Protonix -) 40 mg PO DAILY [facility] Last Admin: 03/14/19 09:14 Dose: 40 mg Spironolactone (Aldactone -) 25 mg PO BID [facility] Last Admin: 03/14/19 09:14 Dose: 25 mg Tamsulosin HCl (Flomax -) 0.4 mg PO BID@0830,2200 [facility] Last Admin: 03/14/19 09:14 Dose: 0.4 mg - Objective Vital Signs: Vital Signs Temperature 97.6 F 03/14/19 06:00 Pulse Rate 71 03/14/19 06:00 Respiratory Rate 20 03/14/19 06:00 Blood Pressure 159/68 03/14/19 06:00 O2 Sat by Pulse Oximetry (%) 97 03/13/19 21:00 Constitutional: Yes: No Distress (Lying flat) Cardiovascular: Yes: Regular Rate and Rhythm Respiratory: Yes: CTA Bilaterally Edema: LLE: 2+, RLE: 2+ Labs: CBC, BMP 03/13/19 06:50 03/14/19 06:00 Assessment/Plan a/p: 78 m hx cad, mi x2, cabg 2012, pci x2 2017, jennifer I, dchf, copd, dm, htn , hld, ckd here with sob, le edema. Acute on chronic diastolic chf: -vol improving, cont iv lasix 80mg IV BID, creat stable at 2.4 today -daily wts, chem7 -cont aldactone/lasix 80 bid Gout: - manage per primary, on solumedrol and colchicine CKD, hyperkalemia: - K improved, 4.0 today -renal following, monitor Cr with lasix CAD: -stable, no signs acs -cont asa, statin -recent stress test with low risk findings, continue current medical management of cad. Abnl ecg, jennifer 1: -chronic finding, stable HTN: -cont current meds HLD: -cont statin
[2019-03-14] MEDS ORDERED: PT OWN MED DRAWER 7, Y5N ONE (11:08)
--- NOTE | 2019-03-14 13:47 | PN ---
Progress Note (short form) - Note Progress Note: sitting in bed more comfortable today c/o headaches this am less swelling to hands and arms mildly dyspneic no CP Vital Signs Period Temp Pulse Resp BP Sys/Whitehead Pulse Ox Last 24 Hr 97.5 F-98.6 F 51-98 18-20 139-183/63-100 97-98 neck supple heart s1/S2 irre lungs clear bilat and obese / soft / non tender Ext + edema LE upper ext no edema / swelling resolved 03/14/19 06:00 CBC, BMP 03/13/19 06:50 03/13/19 06:50 CBC, BMP 03/10/19 06:30 03/10/19 06:30 Active Medications Acetaminophen (Tylenol -) 650 mg PO Q6H PRN PRN Reason: PAIN LEVEL 1-5 Allopurinol (Zyloprim -) 100 mg PO DAILY [facility] Last Admin: 03/14/19 09:14 Dose: 100 mg Artificial Tears (Artificial Tears) 1 drop OU Q6H PRN PRN Reason: DRY EYES Aspirin (Ecotrin -) 162 mg PO DAILY [facility] Last Admin: 03/14/19 09:14 Dose: 162 mg Atorvastatin Calcium (Lipitor -) 40 mg PO HS [facility] Last Admin: 03/13/19 22:01 Dose: 40 mg Colchicine (Colcrys) 0.6 mg PO BIDWM [facility] Last Admin: 03/14/19 09:14 Dose: 0.6 mg Furosemide (Lasix Injection -) 80 mg IVPUSH BID@0600,1400 [facility] Last Admin: 03/14/19 13:06 Dose: 80 mg Insulin Aspart (Novolog Vial Sliding Scale -) 1 vial SQ ACHS [facility]; Protocol Last Admin: 03/14/19 11:14 Dose: 14 units Methylprednisolone Sodium Succinate (Solu-Medrol -) 40 mg IVPUSH Q8H-IV [facility] Last Admin: 03/14/19 09:14 Dose: 40 mg Non-Formulary Medication (Insulin Aspart [Novolog]) 15 unit SQ ASDIR [facility] Pantoprazole Sodium (Protonix -) 40 mg PO DAILY [facility] Last Admin: 03/14/19 09:14 Dose: 40 mg Spironolactone (Aldactone -) 25 mg PO BID [facility] Last Admin: 03/14/19 09:14 Dose: 25 mg Tamsulosin HCl (Flomax -) 0.4 mg PO BID@0830,2200 [facility] Last Admin: 03/14/19 09:14 Dose: 0.4 mg # HF IV lasix / spironolactone / slowly improving trend renal function -- has remained stable -in spite of increased lasix monitor K # CKD CKD 4 / nephrology consult and follow up appreciated #HTN continue meds # DM insulin sliding scale ADA diet # GOUT colchicine BID / allopurinol 100 q day Solumedrol taper # CAD s/p CABG stable # Arrhythmia hx of 1 degree HB / VPC Problem List - Problems (1) Acute on chronic diastolic (congestive) heart failure Code(s): I50.33 - ACUTE ON CHRONIC DIASTOLIC (CONGESTIVE) HEART FAILURE (2) CHF (congestive heart failure) Code(s): I50.9 - HEART FAILURE, UNSPECIFIED (3) CKD (chronic kidney disease) Code(s): N18.9 - CHRONIC KIDNEY DISEASE, UNSPECIFIED (4) CKD (chronic kidney disease) stage 3, GFR 30-59 ml/min Code(s): N18.3 - CHRONIC KIDNEY DISEASE, STAGE 3 (MODERATE) (5) Diabetes Code(s): E11.9 - TYPE 2 DIABETES MELLITUS WITHOUT COMPLICATIONS Qualifiers: Diabetes mellitus fpc insulin use: with reproductive surgeon use Diabetes mellitus complication detail: with unspecified neuropathy (6) Electrolyte abnormality Code(s): E87.8 - OTH DISORDERS OF ELECTROLYTE AND FLUID BALANCE, NEC (7) Hx of CABG Code(s): Z95.1 - PRESENCE OF AORTOCORONARY BYPASS GRAFT (8) Hyperlipidemia Code(s): E78.5 - HYPERLIPIDEMIA, UNSPECIFIED (9) Inflammatory arthritis Code(s): M19.90 - UNSPECIFIED OSTEOARTHRITIS, UNSPECIFIED SITE (10) Leg edema Code(s): R60.0 - LOCALIZED EDEMA (11) Morbid obesity Code(s): E66.01 - MORBID (SEVERE) OBESITY DUE TO EXCESS CALORIES (12) Spinal stenosis of lumbar region Code(s): M48.06 - SPINAL STENOSIS, LUMBAR REGION * DO NOT USE * (13) Swelling of joint, wrist, right Code(s): M25.431 - EFFUSION, RIGHT WRIST
--- NOTE | 2019-03-14 17:10 | PN ---
Progress Note, Physician History of Present Illness: Pt seen and examined at bedside. He is awake and alert. He feels that the edema is improving. - Current Medication List Current Medications: Active Medications Acetaminophen (Tylenol -) 650 mg PO Q6H PRN PRN Reason: PAIN LEVEL 1-5 Allopurinol (Zyloprim -) 100 mg PO DAILY [facility] Last Admin: 03/14/19 09:14 Dose: 100 mg Artificial Tears (Artificial Tears) 1 drop OU Q6H PRN PRN Reason: DRY EYES Aspirin (Ecotrin -) 162 mg PO DAILY [facility] Last Admin: 03/14/19 09:14 Dose: 162 mg Atorvastatin Calcium (Lipitor -) 40 mg PO HS [facility] Last Admin: 03/13/19 22:01 Dose: 40 mg Colchicine (Colcrys) 0.6 mg PO BIDWM [facility] Last Admin: 03/14/19 09:14 Dose: 0.6 mg Furosemide (Lasix Injection -) 80 mg IVPUSH BID@0600,1400 [facility] Last Admin: 03/14/19 13:06 Dose: 80 mg Insulin Aspart (Novolog Vial Sliding Scale -) 1 vial SQ ACHS [facility]; Protocol Last Admin: 03/14/19 16:53 Dose: 10 units Methylprednisolone Sodium Succinate (Solu-Medrol -) 40 mg IVPUSH DAILY [facility] Non-Formulary Medication (Insulin Aspart [Novolog]) 15 unit SQ ASDIR [facility] Pantoprazole Sodium (Protonix -) 40 mg PO DAILY [facility] Last Admin: 03/14/19 09:14 Dose: 40 mg Spironolactone (Aldactone -) 25 mg PO BID [facility] Last Admin: 03/14/19 09:14 Dose: 25 mg Tamsulosin HCl (Flomax -) 0.4 mg PO BID@0830,2200 [facility] Last Admin: 03/14/19 09:14 Dose: 0.4 mg - Objective Vital Signs: Vital Signs Temperature 97.5 F L 03/14/19 14:00 Pulse Rate 70 03/14/19 10:00 Respiratory Rate 20 03/14/19 14:00 Blood Pressure 144/71 03/14/19 14:00 O2 Sat by Pulse Oximetry (%) 98 03/14/19 09:00 Constitutional: Yes: Calm Eyes: Yes: Conjunctiva Clear HENT: Yes: Atraumatic Neck: Yes: Supple Cardiovascular: Yes: S1, S2 Respiratory: Yes: CTA Bilaterally Gastrointestinal: Yes: Soft Genitourinary: Yes: WNL Musculoskeletal: Yes: WNL Edema: Yes Edema: LLE: 2+, RLE: 2+ Neurological: Yes: Oriented Psychiatric: Yes: Oriented Labs: CBC, BMP 03/13/19 06:50 03/14/19 06:00 Problem List - Problems (1) Acute on chronic diastolic (congestive) heart failure Code(s): I50.33 - ACUTE ON CHRONIC DIASTOLIC (CONGESTIVE) HEART FAILURE (2) CKD (chronic kidney disease) Code(s): N18.9 - CHRONIC KIDNEY DISEASE, UNSPECIFIED Assessment/Plan Current Medications Generic Name Dose Route Start Last Admin Trade Name Freq PRN Reason Stop Dose Admin Acetaminophen 650 mg 03/14/19 11:43 Tylenol - PO Q6H PRN PAIN LEVEL 1-5 Allopurinol 100 mg 03/14/19 10:00 03/14/19 09:14 Zyloprim - PO 100 mg DAILY [facility] Administration Artificial Tears 1 drop 03/08/19 14:09 Artificial Tears OU Q6H PRN DRY EYES Aspirin 162 mg 03/09/19 10:00 03/14/19 09:14 Ecotrin - PO 162 mg DAILY [facility] Administration Atorvastatin Calcium 40 mg 03/08/19 22:00 03/13/19 22:01 Lipitor - PO 40 mg HS [facility] Administration Colchicine 0.6 mg 03/08/19 17:30 03/14/19 09:14 Colcrys PO 0.6 mg BIDWM [facility]ENN[facility]ER Administration Furosemide 80 mg 03/13/19 15:55 03/14/19 13:06 Lasix Injection - IVPUSH 80 mg BID@0600,1400 JENNIEFR Administration Insulin Aspart 1 vial 03/08/19 16:30 03/14/19 16:53 Novolog Vial Sliding Scale - SQ 10 units ACHS [facility] Administration Protocol Methylprednisolone Sodium Succinate 40 mg 03/15/19 10:00 Solu-Medrol - IVPUSH DAILY [facility] Non-Formulary Medication 15 unit 03/08/19 14:15 Insulin Aspart [Novolog] SQ ASDIR [facility] Pantoprazole Sodium 40 mg 03/09/19 10:00 03/14/19 09:14 Protonix - PO 40 mg DAILY [facility] Administration Spironolactone 25 mg 03/12/19 22:00 03/14/19 09:14 Aldactone - PO 25 mg BID [facility] Administration Tamsulosin HCl 0.4 mg 03/08/19 22:00 03/14/19 09:14 Flomax - PO 0.4 mg BID@0830,2200 [facility] Administration Impression 1. CKD 2. CHF 3. DM 4. obesity 5. HTN 6. dyspnea 7. HLD 8. CAD s/p cabg 9. volume overload 10. hyperkalemia Plan - cont lasix - cont aldactone - volume status improving - repeat labs in am
[2019-03-14] MEDS: ATORVASTATIN CA 40 MG TABLET (FP) PO SCH (22:22)
[2019-03-15] MEDS: FUROSEMIDE 40 MG/4 ML INJECTABLE VIAL IVPUSH SCH (06:21)
[2019-03-15] MEDS: INSULIN SLIDING SCALE (NOVOLOG) 1 VIAL SQ SCH ×4 (06:23→21:48)
[2019-03-15 07:44] LABS: BLOOD UREA NITROGEN 77.4 mg/dL (7-18); CALCIUM 8.6 mg/dL (8.5-10.1); CREATININE 2.3 mg/dL (0.55-1.3); POTASSIUM 3.7 mmol/L (3.5-5.1)
[2019-03-15] MEDS: TAMSULOSIN HCL 0.4 MG CAP PO SCH ×2 (08:26→21:42)
[2019-03-15] MEDS: COLCHICINE 0.6 MG CAP PO SCH ×2 (08:26→16:47)
[2019-03-15] MEDS: ALLOPURINOL 100 MG TABLET (FP) PO SCH (09:23)
[2019-03-15] MEDS: PANTOPRAZOLE 40 MG TABLET (FP) PO SCH (09:23)
[2019-03-15] MEDS: SPIRONOLACTONE 25 MG TABLET (FP) PO SCH ×2 (09:23→21:42)
[2019-03-15] MEDS: methylPREDNISolone NA SUCC 40 MG/1 ML VIAL IVPUSH SCH (09:23)
[2019-03-15] MEDS: ASPIRIN COATED 81 MG TABLET.EC PO SCH (09:23)
--- NOTE | 2019-03-15 10:01 | PN ---
Progress Note, Physician Chief Complaint: sob History of Present Illness: states sob better, thinks normal for him no palp, cp, syncope - Current Medication List Current Medications: Active Medications Acetaminophen (Tylenol -) 650 mg PO Q6H PRN PRN Reason: PAIN LEVEL 1-5 Allopurinol (Zyloprim -) 100 mg PO DAILY [facility] Last Admin: 03/15/19 09:23 Dose: 100 mg Artificial Tears (Artificial Tears) 1 drop OU Q6H PRN PRN Reason: DRY EYES Aspirin (Ecotrin -) 162 mg PO DAILY [facility] Last Admin: 03/15/19 09:23 Dose: 162 mg Atorvastatin Calcium (Lipitor -) 40 mg PO HS [facility] Last Admin: 03/14/19 22:22 Dose: 40 mg Colchicine (Colcrys) 0.6 mg PO BIDWM [facility] Last Admin: 03/15/19 08:26 Dose: 0.6 mg Furosemide (Lasix Injection -) 80 mg IVPUSH BID@0600,1400 [facility] Last Admin: 03/15/19 06:21 Dose: 80 mg Insulin Aspart (Novolog Vial Sliding Scale -) 1 vial SQ ACHS [facility]; Protocol Last Admin: 03/15/19 06:23 Dose: 4 units Methylprednisolone Sodium Succinate (Solu-Medrol -) 40 mg IVPUSH DAILY [facility] Last Admin: 03/15/19 09:23 Dose: 40 mg Non-Formulary Medication (Insulin Aspart [Novolog]) 15 unit SQ ASDIR [facility] Pantoprazole Sodium (Protonix -) 40 mg PO DAILY [facility] Last Admin: 03/15/19 09:23 Dose: 40 mg Spironolactone (Aldactone -) 25 mg PO BID [facility] Last Admin: 03/15/19 09:23 Dose: 25 mg Tamsulosin HCl (Flomax -) 0.4 mg PO BID@0830,2200 [facility] Last Admin: 03/15/19 08:26 Dose: 0.4 mg - Objective Vital Signs: Vital Signs Temperature 98.0 F 03/15/19 08:12 Pulse Rate 81 03/15/19 08:12 Respiratory Rate 18 03/15/19 08:12 Blood Pressure 154/71 03/15/19 08:12 O2 Sat by Pulse Oximetry (%) 98 03/15/19 08:00 Constitutional: Yes: No Distress, Calm Eyes: No: Sclera Icterus HENT: No: Nasal Congestion Cardiovascular: Yes: Regular Rate and Rhythm, S1, S2, Other (PMI non diplaced). No: JVD, Gallop, Murmur Respiratory: Yes: CTA Bilaterally. No: Accessory Muscle Use, Rales, Wheezes Gastrointestinal: Yes: Normal Bowel Sounds, Soft. No: Tenderness Musculoskeletal: Yes: Other (No kyphosis) Extremities: No: Cold, Cyanosis Edema: Yes (2+) Integumentary: No: Jaundice Neurological: Yes: Alert, Oriented (x3) Psychiatric: No: Agitated Labs: CBC, BMP 03/13/19 06:50 03/15/19 06:45 Assessment/Plan echo 06/2017: mild dec lvef, nl rv, mild mr, mild-mod tr, rvsp 40-50, mild ar, mild pr mibi 04/2018: mild nonextensive apical ischemia. anterolateral scar, lvef 42 a/p: 78 m hx cad, mi x2, cabg 2013, pci x2 2017, mobitz I, dchf, copd, dm, htn , hld, ckd here with sob, le edema. Acute on chronic mixed syst/diastolic chf (mid-range EF): -frequent HF admits. last d/c 01/12 with wt 237 lbs.-->wt up here 256 lbs. -vol improving, cont iv lasix 80mg IV BID--wt down to 236. 2+ LE edema, suspect still somewhat volume-up. renal fxn stable -cont same lasix, spironolactone. -if pt reliable for prompt HF followup in office, can send home on lasix 100 po bid with spironolactone--will d/w dr miller Gout: - manage per primary, on solumedrol and colchicine CKD, hyperkalemia: - baseline creat 2-2.5 - renal fxn, K stable CAD: -stable, no signs acs -cont asa, statin -recent stress test with low risk findings, continue current medical management of cad. Abnl ecg, jennifer 1: -chronic finding, stable HTN: -bp mildly elevated -cont current meds--reassess bp as outpatient HLD: -cont statin d/c tele
--- NOTE | 2019-03-15 11:50 | PN ---
Progress Note, Physician History of Present Illness: Pt seen and examined at bedside. He feels that his breathing is improved. he feels that his edema is improved as well. - Current Medication List Current Medications: Active Medications Acetaminophen (Tylenol -) 650 mg PO Q6H PRN PRN Reason: PAIN LEVEL 1-5 Allopurinol (Zyloprim -) 100 mg PO DAILY [facility] Last Admin: 03/15/19 09:23 Dose: 100 mg Artificial Tears (Artificial Tears) 1 drop OU Q6H PRN PRN Reason: DRY EYES Aspirin (Ecotrin -) 162 mg PO DAILY [facility] Last Admin: 03/15/19 09:23 Dose: 162 mg Atorvastatin Calcium (Lipitor -) 40 mg PO HS [facility] Last Admin: 03/14/19 22:22 Dose: 40 mg Colchicine (Colcrys) 0.6 mg PO BIDWM [facility] Last Admin: 03/15/19 08:26 Dose: 0.6 mg Furosemide (Lasix Injection -) 80 mg IVPUSH BID@0600,1400 [facility] Last Admin: 03/15/19 06:21 Dose: 80 mg Insulin Aspart (Novolog Vial Sliding Scale -) 1 vial SQ ACHS [facility]; Protocol Last Admin: 03/15/19 11:45 Dose: 4 units Methylprednisolone Sodium Succinate (Solu-Medrol -) 40 mg IVPUSH DAILY [facility] Last Admin: 03/15/19 09:23 Dose: 40 mg Non-Formulary Medication (Insulin Aspart [Novolog]) 15 unit SQ ASDIR [facility] Pantoprazole Sodium (Protonix -) 40 mg PO DAILY [facility] Last Admin: 03/15/19 09:23 Dose: 40 mg Spironolactone (Aldactone -) 25 mg PO BID [facility] Last Admin: 03/15/19 09:23 Dose: 25 mg Tamsulosin HCl (Flomax -) 0.4 mg PO BID@0830,2200 [facility] Last Admin: 03/15/19 08:26 Dose: 0.4 mg - Objective Vital Signs: Vital Signs Temperature 98.0 F 03/15/19 08:12 Pulse Rate 81 03/15/19 08:12 Respiratory Rate 18 03/15/19 08:12 Blood Pressure 154/71 03/15/19 08:12 O2 Sat by Pulse Oximetry (%) 98 03/15/19 08:00 Constitutional: Yes: Calm Eyes: Yes: Conjunctiva Clear HENT: Yes: Atraumatic Neck: Yes: Supple Cardiovascular: Yes: S1, S2 Respiratory: Yes: CTA Bilaterally Gastrointestinal: Yes: Normal Bowel Sounds, Soft Genitourinary: Yes: WNL Musculoskeletal: Yes: WNL Edema: Yes Edema: LLE: 1+, RLE: 1+ Integumentary: Yes: Venous Stasis Changes Neurological: Yes: Oriented Psychiatric: Yes: Oriented Labs: CBC, BMP 03/13/19 06:50 03/15/19 06:45 Problem List - Problems (1) Acute on chronic diastolic (congestive) heart failure Code(s): I50.33 - ACUTE ON CHRONIC DIASTOLIC (CONGESTIVE) HEART FAILURE (2) CKD (chronic kidney disease) Code(s): N18.9 - CHRONIC KIDNEY DISEASE, UNSPECIFIED Assessment/Plan Current Medications Generic Name Dose Route Start Last Admin Trade Name Freq PRN Reason Stop Dose Admin Acetaminophen 650 mg 03/14/19 11:43 Tylenol - PO Q6H PRN PAIN LEVEL 1-5 Allopurinol 100 mg 03/14/19 10:00 03/15/19 09:23 Zyloprim - PO 100 mg DAILY [facility] Administration Artificial Tears 1 drop 03/08/19 14:09 Artificial Tears OU Q6H PRN DRY EYES Aspirin 162 mg 03/09/19 10:00 03/15/19 09:23 Ecotrin - PO 162 mg DAILY [facility] Administration Atorvastatin Calcium 40 mg 03/08/19 22:00 03/14/19 22:22 Lipitor - PO 40 mg HS [facility] Administration Colchicine 0.6 mg 03/08/19 17:30 03/15/19 08:26 Colcrys PO 0.6 mg BIDWM [facility] Administration Furosemide 80 mg 03/13/19 15:55 03/15/19 06:21 Lasix Injection - IVPUSH 80 mg BID@0600,1400 [facility] Administration Insulin Aspart 1 vial 03/08/19 16:30 03/15/19 11:45 Novolog Vial Sliding Scale - SQ 4 units ACHS [facility] Administration Protocol Methylprednisolone Sodium Succinate 40 mg 03/15/19 10:00 03/15/19 09:23 Solu-Medrol - IVPUSH 40 mg DAILY [facility] Administration Non-Formulary Medication 15 unit 03/08/19 14:15 Insulin Aspart [Novolog] SQ ASDIR [facility] Pantoprazole Sodium 40 mg 03/09/19 10:00 03/15/19 09:23 Protonix - PO 40 mg DAILY [facility] Administration Spironolactone 25 mg 03/12/19 22:00 03/15/19 09:23 Aldactone - PO 25 mg BID [facility] Administration Tamsulosin HCl 0.4 mg 03/08/19 22:00 03/15/19 08:26 Flomax - PO 0.4 mg BID@0830,2200 [facility] Administration Impression 1. CKD 2. CHF 3. DM 4. obesity 5. HTN 6. dyspnea 7. HLD 8. CAD s/p cabg 9. volume overload 10. hyperkalemia Plan - can change lasix to po - bicarb rising - volumes status improving - cont aldactone at bid - will need close outpt follow
--- NOTE | 2019-03-15 12:05 | PN ---
Progress Note (short form) - Note Progress Note: sitting in bed more comfortable today c/o headaches this am less swelling to hands and arms mildly dyspneic no CP Vital Signs Period Temp Pulse Resp BP Sys/Whitehead Pulse Ox Last 24 Hr 97.5 F-98.6 F 51-98 18-20 139-183/63-100 97-98 neck supple heart s1/S2 irre lungs clear bilat and obese / soft / non tender Ext + edema LE upper ext no edema / swelling resolved 03/14/19 06:00 CBC, BMP 03/13/19 06:50 03/13/19 06:50 CBC, BMP 03/10/19 06:30 03/10/19 06:30 Active Medications Acetaminophen (Tylenol -) 650 mg PO Q6H PRN PRN Reason: PAIN LEVEL 1-5 Allopurinol (Zyloprim -) 100 mg PO DAILY [facility] Last Admin: 03/14/19 09:14 Dose: 100 mg Artificial Tears (Artificial Tears) 1 drop OU Q6H PRN PRN Reason: DRY EYES Aspirin (Ecotrin -) 162 mg PO DAILY [facility] Last Admin: 03/14/19 09:14 Dose: 162 mg Atorvastatin Calcium (Lipitor -) 40 mg PO HS [facility] Last Admin: 03/13/19 22:01 Dose: 40 mg Colchicine (Colcrys) 0.6 mg PO BIDWM [facility] Last Admin: 03/14/19 09:14 Dose: 0.6 mg Furosemide (Lasix Injection -) 80 mg IVPUSH BID@0600,1400 [facility] Last Admin: 03/14/19 13:06 Dose: 80 mg Insulin Aspart (Novolog Vial Sliding Scale -) 1 vial SQ ACHS [facility]; Protocol Last Admin: 03/14/19 11:14 Dose: 14 units Methylprednisolone Sodium Succinate (Solu-Medrol -) 40 mg IVPUSH Q8H-IV [facility] Last Admin: 03/14/19 09:14 Dose: 40 mg Non-Formulary Medication (Insulin Aspart [Novolog]) 15 unit SQ ASDIR [facility] Pantoprazole Sodium (Protonix -) 40 mg PO DAILY [facility] Last Admin: 03/14/19 09:14 Dose: 40 mg Spironolactone (Aldactone -) 25 mg PO BID [facility] Last Admin: 03/14/19 09:14 Dose: 25 mg Tamsulosin HCl (Flomax -) 0.4 mg PO BID@0830,2200 [facility] Last Admin: 03/14/19 09:14 Dose: 0.4 mg # HF IV lasix / spironolactone / slowly improving / still fluid overload trend renal function -- has remained stable -in spite of increased lasix monitor K # CKD CKD 4 / nephrology consult and follow up appreciated #HTN continue meds # DM insulin sliding scale ADA diet # GOUT colchicine BID / allopurinol 100 q day Solumedrol taper # CAD s/p CABG stable # Arrhythmia hx of 1 degree HB / VPC Problem List - Problems (1) Acute on chronic diastolic (congestive) heart failure Code(s): I50.33 - ACUTE ON CHRONIC DIASTOLIC (CONGESTIVE) HEART FAILURE (2) CHF (congestive heart failure) Code(s): I50.9 - HEART FAILURE, UNSPECIFIED (3) CKD (chronic kidney disease) Code(s): N18.9 - CHRONIC KIDNEY DISEASE, UNSPECIFIED (4) CKD (chronic kidney disease) stage 3, GFR 30-59 ml/min Code(s): N18.3 - CHRONIC KIDNEY DISEASE, STAGE 3 (MODERATE) (5) Diabetes Code(s): E11.9 - TYPE 2 DIABETES MELLITUS WITHOUT COMPLICATIONS Qualifiers: Diabetes mellitus halfway insulin use: with halfway use Diabetes mellitus complication detail: with unspecified neuropathy (6) Electrolyte abnormality Code(s): E87.8 - OTH DISORDERS OF ELECTROLYTE AND FLUID BALANCE, NEC (7) Hx of CABG Code(s): Z95.1 - PRESENCE OF AORTOCORONARY BYPASS GRAFT (8) Hyperlipidemia Code(s): E78.5 - HYPERLIPIDEMIA, UNSPECIFIED (9) Inflammatory arthritis Code(s): M19.90 - UNSPECIFIED OSTEOARTHRITIS, UNSPECIFIED SITE (10) Leg edema Code(s): R60.0 - LOCALIZED EDEMA (11) Morbid obesity Code(s): E66.01 - MORBID (SEVERE) OBESITY DUE TO EXCESS CALORIES (12) Spinal stenosis of lumbar region Code(s): M48.06 - SPINAL STENOSIS, LUMBAR REGION * DO NOT USE * (13) Swelling of joint, wrist, right Code(s): M25.431 - EFFUSION, RIGHT WRIST
[2019-03-15] MEDS: FUROSEMIDE 40 MG TABLET (FP) PO SCH (13:30)
[2019-03-15] MEDS: ATORVASTATIN CA 40 MG TABLET (FP) PO SCH (21:42)
[2019-03-15] MEDS: ACETAMINOPHEN 325 MG TABLET (FP) PO PRN (23:28)
[2019-03-16] MEDS: FUROSEMIDE 40 MG TABLET (FP) PO SCH ×2 (06:08→13:28)
[2019-03-16] MEDS: INSULIN SLIDING SCALE (NOVOLOG) 1 VIAL SQ SCH ×4 (06:48→21:36)
[2019-03-16] MEDS: COLCHICINE 0.6 MG CAP PO SCH ×2 (08:14→17:47)
[2019-03-16] MEDS: TAMSULOSIN HCL 0.4 MG CAP PO SCH ×2 (08:14→21:33)
[2019-03-16] MEDS: ALLOPURINOL 100 MG TABLET (FP) PO SCH (09:39)
[2019-03-16] MEDS: SPIRONOLACTONE 25 MG TABLET (FP) PO SCH ×2 (09:39→21:33)
[2019-03-16] MEDS: ASPIRIN COATED 81 MG TABLET.EC PO SCH (09:39)
[2019-03-16] MEDS: methylPREDNISolone NA SUCC 40 MG/1 ML VIAL IVPUSH SCH (09:39)
[2019-03-16] MEDS: PANTOPRAZOLE 40 MG TABLET (FP) PO SCH (09:39)
--- NOTE | 2019-03-16 10:54 | PN ---
Progress Note (short form) - Note Progress Note: s: breathing at baseline, no chest pain, palps, dizziness Current Medications Acetaminophen (Tylenol -) 650 mg PO Q6H PRN PRN Reason: PAIN LEVEL 1-5 Last Admin: 03/15/19 23:28 Dose: 650 mg Allopurinol (Zyloprim -) 100 mg PO DAILY [facility] Last Admin: 03/16/19 09:39 Dose: 100 mg Artificial Tears (Artificial Tears) 1 drop OU Q6H PRN PRN Reason: DRY EYES Aspirin (Ecotrin -) 162 mg PO DAILY [facility] Last Admin: 03/16/19 09:39 Dose: 162 mg Atorvastatin Calcium (Lipitor -) 40 mg PO HS [facility] Last Admin: 03/15/19 21:42 Dose: 40 mg Colchicine (Colcrys) 0.6 mg PO BIDWM [facility] Last Admin: 03/16/19 08:14 Dose: 0.6 mg Furosemide (Lasix -) 80 mg PO BID@0600,1400 [facility] Last Admin: 03/16/19 06:08 Dose: 80 mg Insulin Aspart (Novolog Vial Sliding Scale -) 1 vial SQ ACHS [facility]; Protocol Last Admin: 03/16/19 06:48 Dose: 2 units Methylprednisolone Sodium Succinate (Solu-Medrol -) 40 mg IVPUSH DAILY [facility] Last Admin: 03/16/19 09:39 Dose: 40 mg Non-Formulary Medication (Insulin Aspart [Novolog]) 15 unit SQ ASDIR [facility] Pantoprazole Sodium (Protonix -) 40 mg PO DAILY [facility] Last Admin: 03/16/19 09:39 Dose: 40 mg Spironolactone (Aldactone -) 25 mg PO BID [facility] Last Admin: 03/16/19 09:39 Dose: 25 mg Tamsulosin HCl (Flomax -) 0.4 mg PO BID@0830,2200 [facility] Last Admin: 03/16/19 08:14 Dose: 0.4 mg Constitutional: Yes: No Distress, Calm Eyes: No: Sclera Icterus HENT: No: Nasal Congestion Cardiovascular: Yes: Regular Rate and Rhythm, S1, S2, Other (PMI non diplaced). No: JVD, Gallop, Murmur Respiratory: Yes: CTA Bilaterally. No: Accessory Muscle Use, Rales, Wheezes Gastrointestinal: Yes: Normal Bowel Sounds, Soft. No: Tenderness Musculoskeletal: Yes: Other (No kyphosis) Extremities: No: Cold, Cyanosis Edema: Yes (1+) Integumentary: No: Jaundice Neurological: Yes: Alert, Oriented (x3) Psychiatric: No: Agitated Assessment/Plan echo 06/2017: mild dec lvef, nl rv, mild mr, mild-mod tr, rvsp 40-50, mild ar, mild pr mibi 04/2018: mild nonextensive apical ischemia. anterolateral scar, lvef 43 tele: NSR with Mobitz 1, freq PVCs, artifact. a/p: 78 m hx cad, mi x2, cabg 2012, pci x2 2017, mobitz I, dchf, copd, dm, htn , hld, ckd here with sob, le edema. Acute on chronic mixed syst/diastolic chf (mid-range EF): -frequent HF admits. last d/c 01/12 with wt 237 lbs.-->wt up here 256 lbs, now at baseline -changed to PO lasix, weight stable - continue PO lasix 80 mg BID -cont spironolactone Gout: - manage per primary, on solumedrol and colchicine CKD, hyperkalemia: - baseline creat 2-2.5 - renal fxn, K stable CAD: -stable, no signs acs -cont asa, statin -recent stress test with low risk findings, continue current medical management of cad. Abnl ecg, akiraitz 1: -chronic finding, stable HTN: -bp mildly elevated -cont current meds--reassess bp as outpatient HLD: -cont statin d/c tele
--- NOTE | 2019-03-16 12:51 | PN ---
Progress Note (short form) - Note Progress Note: sitting in bed more comfortable today swelling resolved to hands and arms denies SOB / CP Vital Signs Period Temp Pulse Resp BP Sys/Whitehead Pulse Ox Last 24 Hr 97.9 F-98.6 F 71-89 18-20 136-159/57-74 96-96 neck supple heart s1/S2 irre lungs clear bilat and obese / soft / non tender Ext + edema LE upper ext edema / swelling resolved [facility] 03/15/19 06:45 CBC, [facility] 03/13/19 06:50 03/13/19 06:50 CBC, [facility] 03/10/19 06:30 03/10/19 06:30 Active Medications Acetaminophen (Tylenol -) 650 mg PO Q6H PRN PRN Reason: PAIN LEVEL 1-5 Last Admin: 03/15/19 23:28 Dose: 650 mg Allopurinol (Zyloprim -) 100 mg PO DAILY [facility] Last Admin: 03/16/19 09:39 Dose: 100 mg Artificial Tears (Artificial Tears) 1 drop OU Q6H PRN PRN Reason: DRY EYES Aspirin (Ecotrin -) 162 mg PO DAILY [facility] Last Admin: 03/16/19 09:39 Dose: 162 mg Atorvastatin Calcium (Lipitor -) 40 mg PO HS [facility] Last Admin: 03/15/19 21:42 Dose: 40 mg Colchicine (Colcrys) 0.6 mg PO BIDWM [facility] Last Admin: 03/16/19 08:14 Dose: 0.6 mg Furosemide (Lasix -) 80 mg PO BID@0600,1400 [facility] Last Admin: 03/16/19 06:08 Dose: 80 mg Insulin Aspart (Novolog Vial Sliding Scale -) 1 vial SQ ACHS [facility]; Protocol Last Admin: 03/16/19 11:32 Dose: 10 units Methylprednisolone Sodium Succinate (Solu-Medrol -) 40 mg IVPUSH DAILY [facility] Last Admin: 03/16/19 09:39 Dose: 40 mg Non-Formulary Medication (Insulin Aspart [Novolog]) 15 unit SQ ASDIR [facility] Pantoprazole Sodium (Protonix -) 40 mg PO DAILY [facility] Last Admin: 03/16/19 09:39 Dose: 40 mg Spironolactone (Aldactone -) 25 mg PO BID [facility] Last Admin: 03/16/19 09:39 Dose: 25 mg Tamsulosin HCl (Flomax -) 0.4 mg PO BID@0830,2200 [facility] Last Admin: 03/16/19 08:14 Dose: 0.4 mg # HF IV lasix / spironolactone / slowly improving but still with ++edema LE trend renal function -- has remained stable -in spite of increased lasix monitor K # CKD CKD 4 / nephrology consult and follow up appreciated #HTN continue meds # DM insulin sliding scale ADA diet # GOUT colchicine BID Solumedrol taper # CAD s/p CABG stable # Arrhythmia hx of 1 degree HB / VPC Problem List - Problems (1) Acute on chronic diastolic (congestive) heart failure Code(s): I50.33 - ACUTE ON CHRONIC DIASTOLIC (CONGESTIVE) HEART FAILURE (2) CHF (congestive heart failure) Code(s): I50.9 - HEART FAILURE, UNSPECIFIED (3) CKD (chronic kidney disease) Code(s): N18.9 - CHRONIC KIDNEY DISEASE, UNSPECIFIED (4) CKD (chronic kidney disease) stage 3, GFR 30-59 ml/min Code(s): N18.3 - CHRONIC KIDNEY DISEASE, STAGE 3 (MODERATE) (5) Diabetes Code(s): E11.9 - TYPE 2 DIABETES MELLITUS WITHOUT COMPLICATIONS Qualifiers: Diabetes mellitus [employer] insulin use: with jail use Diabetes mellitus complication detail: with unspecified neuropathy (6) Electrolyte abnormality Code(s): E87.8 - OTH DISORDERS OF ELECTROLYTE AND FLUID BALANCE, NEC (7) Hx of CABG Code(s): Z95.1 - PRESENCE OF AORTOCORONARY BYPASS GRAFT (8) Hyperlipidemia Code(s): E78.5 - HYPERLIPIDEMIA, UNSPECIFIED (9) Inflammatory arthritis Code(s): M19.90 - UNSPECIFIED OSTEOARTHRITIS, UNSPECIFIED SITE (10) Leg edema Code(s): R60.0 - LOCALIZED EDEMA (11) Morbid obesity Code(s): E66.01 - MORBID (SEVERE) OBESITY DUE TO EXCESS CALORIES (12) Spinal stenosis of lumbar region Code(s): M48.06 - SPINAL STENOSIS, LUMBAR REGION * DO NOT USE * (13) Swelling of joint, wrist, right Code(s): M25.431 - EFFUSION, RIGHT WRIST
--- NOTE | 2019-03-16 13:50 | PN ---
Progress Note, Physician History of Present Illness: Pt seen and examined at bedside. He is awake and alert. He feels that his breathing is improved. - Current Medication List Current Medications: Active Medications Acetaminophen (Tylenol -) 650 mg PO Q6H PRN PRN Reason: PAIN LEVEL 1-5 Last Admin: 03/15/19 23:28 Dose: 650 mg Allopurinol (Zyloprim -) 100 mg PO DAILY [facility] Last Admin: 03/16/19 09:39 Dose: 100 mg Artificial Tears (Artificial Tears) 1 drop OU Q6H PRN PRN Reason: DRY EYES Aspirin (Ecotrin -) 162 mg PO DAILY [facility] Last Admin: 03/16/19 09:39 Dose: 162 mg Atorvastatin Calcium (Lipitor -) 40 mg PO HS [facility] Last Admin: 03/15/19 21:42 Dose: 40 mg Colchicine (Colcrys) 0.6 mg PO BIDWM [facility] Last Admin: 03/16/19 08:14 Dose: 0.6 mg Furosemide (Lasix -) 80 mg PO BID@0600,1400 [facility] Last Admin: 03/16/19 13:28 Dose: 80 mg Insulin Aspart (Novolog Vial Sliding Scale -) 1 vial SQ ACHS [facility]; Protocol Last Admin: 03/16/19 11:32 Dose: 10 units Methylprednisolone Sodium Succinate (Solu-Medrol -) 40 mg IVPUSH DAILY [facility] Last Admin: 03/16/19 09:39 Dose: 40 mg Non-Formulary Medication (Insulin Aspart [Novolog]) 15 unit SQ ASDIR [facility] Pantoprazole Sodium (Protonix -) 40 mg PO DAILY [facility] Last Admin: 03/16/19 09:39 Dose: 40 mg Spironolactone (Aldactone -) 25 mg PO BID [facility] Last Admin: 03/16/19 09:39 Dose: 25 mg Tamsulosin HCl (Flomax -) 0.4 mg PO BID@0830,2200 [facility] Last Admin: 03/16/19 08:14 Dose: 0.4 mg - Objective Vital Signs: Vital Signs Temperature 98.6 F 03/16/19 08:48 Pulse Rate 82 03/16/19 08:48 Respiratory Rate 18 03/16/19 08:50 Blood Pressure 139/68 03/16/19 08:48 O2 Sat by Pulse Oximetry (%) 96 03/16/19 08:50 Constitutional: Yes: Calm Eyes: Yes: Conjunctiva Clear HENT: Yes: Atraumatic Cardiovascular: Yes: S1, S2 Respiratory: Yes: CTA Bilaterally Gastrointestinal: Yes: Soft Musculoskeletal: Yes: WNL Edema: Yes Edema: LLE: 1+, RLE: 1+ Integumentary: Yes: WNL Neurological: Yes: Oriented Psychiatric: Yes: Oriented Labs: CBC, BMP 03/13/19 06:50 03/15/19 06:45 Problem List - Problems (1) Acute on chronic diastolic (congestive) heart failure Code(s): I50.33 - ACUTE ON CHRONIC DIASTOLIC (CONGESTIVE) HEART FAILURE (2) CKD (chronic kidney disease) Code(s): N18.9 - CHRONIC KIDNEY DISEASE, UNSPECIFIED Assessment/Plan Current Medications Generic Name Dose Route Start Last Admin Trade Name Freq PRN Reason Stop Dose Admin Acetaminophen 650 mg 03/14/19 11:43 03/15/19 23:28 Tylenol - PO 650 mg Q6H PRN Administration PAIN LEVEL 1-5 Allopurinol 100 mg 03/14/19 10:00 03/16/19 09:39 Zyloprim - PO 100 mg DAILY [facility] Administration Artificial Tears 1 drop 03/08/19 14:09 Artificial Tears OU Q6H PRN DRY EYES Aspirin 162 mg 03/09/19 10:00 03/16/19 09:39 Ecotrin - PO 162 mg DAILY [facility] Administration Atorvastatin Calcium 40 mg 03/08/19 22:00 03/15/19 21:42 Lipitor - PO 40 mg HS [facility] Administration Colchicine 0.6 mg 03/08/19 17:30 03/16/19 08:14 Colcrys PO 0.6 mg BIDWM [facility] Administration Furosemide 80 mg 03/15/19 14:00 03/16/19 13:28 Lasix - PO 80 mg BID@0600,1400 [facility] Administration Insulin Aspart 1 vial 03/08/19 16:30 03/16/19 11:32 Novolog Vial Sliding Scale - SQ 10 units ACHS [facility] Administration Protocol Methylprednisolone Sodium Succinate 40 mg 03/15/19 10:00 03/16/19 09:39 Solu-Medrol - IVPUSH 40 mg DAILY [facility] Administration Non-Formulary Medication 15 unit 03/08/19 14:15 Insulin Aspart [Novolog] SQ ASDIR [facility] Pantoprazole Sodium 40 mg 03/09/19 10:00 03/16/19 09:39 Protonix - PO 40 mg DAILY [facility] Administration Spironolactone 25 mg 03/12/19 22:00 03/16/19 09:39 Aldactone - PO 25 mg BID [facility] Administration Tamsulosin HCl 0.4 mg 03/08/19 22:00 03/16/19 08:14 Flomax - PO 0.4 mg BID@0830,2200 [facility] Administration Impression 1. CKD 2. CHF 3. DM 4. obesity 5. HTN 6. dyspnea 7. HLD 8. CAD s/p cabg 9. volume overload 10. hyperkalemia Plan - cont lasix 80 po bid - cont aldactone 25 bid - 2 gram sodium diet - volumes status improving - check bmp - will need close outpt follow
[2019-03-16] MEDS: ATORVASTATIN CA 40 MG TABLET (FP) PO SCH (21:33)
[2019-03-17] MEDS: FUROSEMIDE 40 MG TABLET (FP) PO SCH ×2 (06:29→15:58)
[2019-03-17] MEDS: INSULIN SLIDING SCALE (NOVOLOG) 1 VIAL SQ SCH ×4 (06:29→23:13)
[2019-03-17 07:25] LABS: BLOOD UREA NITROGEN 73.8 mg/dL (7-18); CALCIUM 8.5 mg/dL (8.5-10.1); CREATININE 2.1 mg/dL (0.55-1.3); POTASSIUM 3.8 mmol/L (3.5-5.1)
[2019-03-17] MEDS: COLCHICINE 0.6 MG CAP PO SCH ×2 (08:48→17:57)
[2019-03-17] MEDS: TAMSULOSIN HCL 0.4 MG CAP PO SCH ×2 (08:48→23:13)
[2019-03-17] MEDS: ASPIRIN COATED 81 MG TABLET.EC PO SCH (09:29)
[2019-03-17] MEDS: PANTOPRAZOLE 40 MG TABLET (FP) PO SCH (09:29)
[2019-03-17] MEDS: methylPREDNISolone NA SUCC 40 MG/1 ML VIAL IVPUSH SCH (09:29)
[2019-03-17] MEDS: ALLOPURINOL 100 MG TABLET (FP) PO SCH (09:29)
[2019-03-17] MEDS: SPIRONOLACTONE 25 MG TABLET (FP) PO SCH ×2 (09:29→23:13)
--- NOTE | 2019-03-17 09:39 | DS ---
Physical Examination Vital Signs: Vital Signs Temperature 97 F L 03/17/19 08:04 Pulse Rate 97 H 03/17/19 08:04 Respiratory Rate 20 03/17/19 08:05 Blood Pressure 152/67 03/17/19 08:04 O2 Sat by Pulse Oximetry (%) 96 03/17/19 08:05 Findings/Remarks: Pt is a 78 y/o M with a significant past medical history of ckd, copd, dm, gerd , cad, mi x2, cabg 2013, pci x2 2017, mobitz I, dchf, hld, and htn who presents to ED after 3 days of bilateral hand swelling and pain. Pt endorses that pain and swelling began suddenly. Pain is describbing as "poking" sensation and is a 10/10 in pain severity. Pt states he experienced similar symptoms approximately 3 years ago at [facility] but cannot recall what it was attributed to. Furthermore, pt states he has been short of breath and has been experiencing lower extremity edema for approximately 1 week. SOB is worse with exertion, specifically when walking to restroom. Pt normally uses a cane to ambulate. Denies Nausea or vomiting. Patient admitted tx with IV lasix debora increased aldactone --clinically improved, stable renal function throughout. Started on Solimedrol which was tapered off, increased colchicine and added allopurinol with significant improvement of sx. At time of discharge no pain in upper extremities, no c/o of SOB or CP. COntinued with 1+ edema to Lower extremities -- will continue meds and close out patient follow up ECHO 06/2017: mild dec lvef, nl rv, mild mr, mild-mod tr, rvsp 40-50, mild ar, mild pr mibi 04/2018: mild nonextensive apical ischemia. anterolateral scar, lvef 43%. ---Acute on chronic mixed syst/diastolic chf (mid-range EF): -frequent HF admits. last d/c 01/12 with wt 237 lbs.-->wt up here 256 lbs. down to 236lbs -cont same lasix, spironolactone. ---CKD, hyperkalemia: - baseline creat 2-2.5 - renal fxn, K stable ---CAD: -stable, no signs acs -cont asa, statin -recent stress test with low risk findings, continue current medical management of cad. ---Abnl ecg, mobitz 1: -chronic finding, stable ---HTN: -bp mildly elevated -cont current meds--reassess bp as outpatient ---HLD: -cont statin Plan - cont lasix 80 po bid - cont aldactone 25 bid - 2 gram sodium diet - check bmp - close outpt follow Constitutional: Yes: Well Nourished, No Distress, Calm Eyes: Yes: Conjunctiva Clear, EOM Intact HENT: Yes: Atraumatic, Normocephalic Neck: Yes: Supple, Trachea Midline Cardiovascular: Yes: Regular Rate and Rhythm Respiratory: Yes: Regular, CTA Bilaterally Gastrointestinal: Yes: Normal Bowel Sounds, Abdomen, Obese ...Rectal Exam: Yes: Deferred Renal/: Yes: WNL Breast(s): Yes: WNL Musculoskeletal: Yes: Back Pain Extremities: No: Calf Tenderness, Deformity, External Rotation Edema: Yes Edema: LLE: 1+ (significantly improved), RLE: 1+ (significantly improved ) Peripheral Pulses WNL: Yes Integumentary: Yes: WNL Wound/Incision: Yes: Clean/Dry Neurological: Yes: Oriented, Pre-Existing Deficit, Unsteady Gait Psychiatric: Yes: Alert, Oriented Labs: CBC, BMP 03/13/19 06:50 03/17/19 06:19 Discharge Summary Problems reviewed: Yes Reason For Visit: ACUTE ON CHRONIC CHF Current Active Problems # HF mixed dHF IV lasix / spironolactone / slowly improving but still with +edema LE trend renal function -- has remained stable -in spite of increased lasix monitor renal funct and K as out patient # CKD CKD 4 / nephrology consult and follow up appreciated #HTN continue meds # DM insulin sliding scale ADA diet # GOUT colchicine BID allopurinol 100 mg q day # CAD s/p CABG stable # Arrhythmia hx of 1 degree HB / VPC Condition: Improved - Instructions Referrals: Diamante Alvarado MD [Primary Care Provider] - Disposition: HOME - Home Medications Comprehensive Discharge Medication List: Ambulatory Orders Insulin Aspart [Novolog] 15 unit SQ ASDIR 07/16/17 Insulin Degludec [Tresiba Flextouch U-100] 70 unit SQ DAILY 07/16/17 Aspirin [Ecotrin] 162 mg PO DAILY #60 tablet. 01/06/18 Atorvastatin Ca [Lipitor] 40 mg PO HS #30 tablet 01/06/18 Insulin Sliding Scale [Novolog Vial Sliding Scale -] 1 vial SQ ACHS units 03/23 Polyvinyl Alcohol [Artificial Tears] 1 drop OU QID PRN drops 05/12/18 Colchicine [Colcrys] 0.6 mg PO DAILY 12/30/18 Furosemide [Lasix -] 40 mg PO BID@0600,1300 12/30/18 Gabapentin [Neurontin -] 100 mg PO BID 12/30/18 Spironolactone [Aldactone -] 25 mg PO DAILY 12/30/18 Tamsulosin HCl [Flomax] 0.4 mg PO BID 12/30/18 Pantoprazole Sodium [Protonix -] 40 mg PO DAILY tablet.ec 01/07/19 Aspirin 81 mg PO DAILY 03/08/19 Omeprazole 40 mg PO DAILY 03/08/19 Prescription Drug Monitoring Program (I-STOP) results: I-STOP not reviewed
--- NOTE | 2019-03-17 11:31 | PN ---
Progress Note (short form) - Note Progress Note: s: no chest pain, palps, dizziness, dyspnea Current Medications Acetaminophen (Tylenol -) 650 mg PO Q6H PRN PRN Reason: PAIN LEVEL 1-5 Last Admin: 03/15/19 23:28 Dose: 650 mg Allopurinol (Zyloprim -) 100 mg PO DAILY [facility] Last Admin: 03/17/19 09:29 Dose: 100 mg Artificial Tears (Artificial Tears) 1 drop OU Q6H PRN PRN Reason: DRY EYES Aspirin (Ecotrin -) 162 mg PO DAILY [facility] Last Admin: 03/17/19 09:29 Dose: 162 mg Atorvastatin Calcium (Lipitor -) 40 mg PO HS [facility] Last Admin: 03/16/19 21:33 Dose: 40 mg Colchicine (Colcrys) 0.6 mg PO BIDWM [facility] Last Admin: 03/17/19 08:48 Dose: 0.6 mg Furosemide (Lasix -) 80 mg PO BID@0600,1400 [facility] Last Admin: 03/17/19 06:29 Dose: 80 mg Insulin Aspart (Novolog Vial Sliding Scale -) 1 vial SQ [facility]; Protocol Last Admin: 03/17/19 06:29 Dose: 4 units Methylprednisolone Sodium Succinate (Solu-Medrol -) 40 mg IVPUSH DAILY [facility] Last Admin: 03/17/19 09:29 Dose: 40 mg Pantoprazole Sodium (Protonix -) 40 mg PO DAILY [facility] Last Admin: 03/17/19 09:29 Dose: 40 mg Spironolactone (Aldactone -) 25 mg PO BID [facility] Last Admin: 03/17/19 09:29 Dose: 25 mg Tamsulosin HCl (Flomax -) 0.4 mg PO BID@0830,2200 [facility] Last Admin: 03/17/19 08:48 Dose: 0.4 mg Vital Signs Period Temp Pulse Resp BP Sys/Whitehead Pulse Ox Last 24 Hr 97 F-98.4 F 32-97 18-95 135-176/59-94 96-97 Constitutional: Yes: No Distress, Calm Eyes: No: Sclera Icterus HENT: No: Nasal Congestion Cardiovascular: Yes: Regular Rate and Rhythm, S1, S2, Other (PMI non diplaced). No: JVD, Gallop, Murmur Respiratory: Yes: CTA Bilaterally. No: Accessory Muscle Use, Rales, Wheezes Gastrointestinal: Yes: Normal Bowel Sounds, Soft. No: Tenderness Musculoskeletal: Yes: Other (No kyphosis) Extremities: No: Cold, Cyanosis Edema: Yes (1+) Integumentary: No: Jaundice Neurological: Yes: Alert, Oriented (x3) Psychiatric: No: Agitated Assessment/Plan echo 06/2017: mild dec lvef, nl rv, mild mr, mild-mod tr, rvsp 40-50, mild ar, mild pr mibi 04/2018: mild nonextensive apical ischemia. anterolateral scar, lvef 43 a/p: 78 m hx cad, mi x2, cabg 2013, pci x2 2017, mobitz I, dchf, copd, dm, htn , hld, ckd here with sob, le edema. Acute on chronic mixed syst/diastolic chf (mid-range EF): -frequent HF admits. last d/c 01/12 with wt 237 lbs.-->wt up here 256 lbs, now at baseline -changed to PO lasix, weight stable - continue PO lasix 80 mg BID -cont spironolactone Gout: - manage per primary, on solumedrol and colchicine CKD, hyperkalemia: - baseline creat 2-2.5 - renal fxn, K stable CAD: -stable, no signs acs -cont asa, statin -recent stress test with low risk findings, continue current medical management of cad. Abnl ecg, jennifer 1: -chronic finding, stable HTN: -bp mildly elevated -cont current meds--reassess bp as outpatient HLD: -cont statin stable for dc from cardiac perspective
--- NOTE | 2019-03-17 12:18 | PN ---
Progress Note, Physician History of Present Illness: Pt seen and examined at bedside. he feels that his lower ext edema continues to improve. - Current Medication List Current Medications: Active Medications Acetaminophen (Tylenol -) 650 mg PO Q6H PRN PRN Reason: PAIN LEVEL 1-5 Last Admin: 03/15/19 23:28 Dose: 650 mg Allopurinol (Zyloprim -) 100 mg PO DAILY [facility] Last Admin: 03/17/19 09:29 Dose: 100 mg Artificial Tears (Artificial Tears) 1 drop OU Q6H PRN PRN Reason: DRY EYES Aspirin (Ecotrin -) 162 mg PO DAILY [facility] Last Admin: 03/17/19 09:29 Dose: 162 mg Atorvastatin Calcium (Lipitor -) 40 mg PO HS [facility] Last Admin: 03/16/19 21:33 Dose: 40 mg Colchicine (Colcrys) 0.6 mg PO BIDWM [facility] Last Admin: 03/17/19 08:48 Dose: 0.6 mg Furosemide (Lasix -) 80 mg PO BID@0600,1400 [facility] Last Admin: 03/17/19 06:29 Dose: 80 mg Insulin Aspart (Novolog Vial Sliding Scale -) 1 vial SQ [facility]; Protocol Last Admin: 03/17/19 06:29 Dose: 4 units Methylprednisolone Sodium Succinate (Solu-Medrol -) 40 mg IVPUSH DAILY [facility] Last Admin: 03/17/19 09:29 Dose: 40 mg Pantoprazole Sodium (Protonix -) 40 mg PO DAILY [facility] Last Admin: 03/17/19 09:29 Dose: 40 mg Spironolactone (Aldactone -) 25 mg PO BID [facility] Last Admin: 03/17/19 09:29 Dose: 25 mg Tamsulosin HCl (Flomax -) 0.4 mg PO BID@0830,2200 [facility] Last Admin: 03/17/19 08:48 Dose: 0.4 mg - Objective Vital Signs: Vital Signs Temperature 97 F L 03/17/19 08:04 Pulse Rate 97 H 03/17/19 08:04 Respiratory Rate 20 03/17/19 08:05 Blood Pressure 152/67 03/17/19 08:04 O2 Sat by Pulse Oximetry (%) 96 03/17/19 08:05 Constitutional: Yes: Calm Eyes: Yes: Conjunctiva Clear HENT: Yes: Atraumatic Neck: Yes: Supple Cardiovascular: Yes: S1, S2 Respiratory: Yes: CTA Bilaterally Gastrointestinal: Yes: Soft Musculoskeletal: Yes: WNL Edema: Yes Edema: LLE: 1+, RLE: 1+ Neurological: Yes: Oriented Psychiatric: Yes: Oriented Labs: CBC, BMP 03/13/19 06:50 03/17/19 06:19 Problem List - Problems (1) Acute on chronic diastolic (congestive) heart failure Code(s): I50.33 - ACUTE ON CHRONIC DIASTOLIC (CONGESTIVE) HEART FAILURE (2) CKD (chronic kidney disease) Code(s): N18.9 - CHRONIC KIDNEY DISEASE, UNSPECIFIED Assessment/Plan Current Medications Generic Name Dose Route Start Last Admin Trade Name Freq PRN Reason Stop Dose Admin Acetaminophen 650 mg 03/14/19 11:43 03/15/19 23:28 Tylenol - PO 650 mg Q6H PRN Administration PAIN LEVEL 1-5 Allopurinol 100 mg 03/14/19 10:00 03/17/19 09:29 Zyloprim - PO 100 mg DAILY JENNIFER Administration Artificial Tears 1 drop 03/08/19 14:09 Artificial Tears OU Q6H PRN DRY EYES Aspirin 162 mg 03/09/19 10:00 03/17/19 09:29 Ecotrin - PO 162 mg DAILY JENN[facility]ER Administration Atorvastatin Calcium 40 mg 03/08/19 22:00 03/16/19 21:33 Lipitor - PO 40 mg HS JENNIFER Administration Colchicine 0.6 mg 03/08/19 17:30 03/17/19 08:48 Colcrys PO 0.6 mg BIDWM JENNIFER Administration Furosemide 80 mg 03/15/19 14:00 03/17/19 06:29 Lasix - PO 80 mg BID@0600,1400 JENNIFER Administration Insulin Aspart 1 vial 03/08/19 16:30 03/17/19 06:29 Novolog Vial Sliding Scale - SQ 4 units ACHS JENNIFER Administration Protocol Methylprednisolone Sodium Succinate 40 mg 03/15/19 10:00 03/17/19 09:29 Solu-Medrol - IVPUSH 40 mg DAILY JENNIFER Administration Pantoprazole Sodium 40 mg 03/09/19 10:00 03/17/19 09:29 Protonix - PO 40 mg DAILY [facility]ENN[facility]ER Administration Spironolactone 25 mg 03/12/19 22:00 03/17/19 09:29 Aldactone - PO 25 mg BID JENNIFER Administration Tamsulosin HCl 0.4 mg 03/08/19 22:00 03/17/19 08:48 Flomax - PO 0.4 mg BID@0830,2200 JENNIFER Administration Impression 1. CKD 2. CHF 3. DM 4. obesity 5. HTN 6. dyspnea 7. HLD 8. CAD s/p cabg 9. volume overload 10. hyperkalemia Plan - cont lasix - cont aldactone - discussed diuretics and doses with pt - 2 gram sodium diet - volumes status improving - will need close outpt follow
[2019-03-17] MEDS: ATORVASTATIN CA 40 MG TABLET (FP) PO SCH (23:13)
[2019-03-17] MEDS: ACETAMINOPHEN 325 MG TABLET (FP) PO PRN (23:13)
[2019-03-18] MEDS: INSULIN SLIDING SCALE (NOVOLOG) 1 VIAL SQ SCH ×2 (06:35→15:43)
[2019-03-18] MEDS: FUROSEMIDE 40 MG TABLET (FP) PO SCH ×2 (06:35→15:48)
[2019-03-18 06:39] VITALS: BP 128/56; PULSE 33; TEMP 97.8
[2019-03-18 09:29] VITALS: BMI 37.8
--- NOTE | 2019-03-18 10:43 | PN ---
Progress Note (short form) - Note Progress Note: 78 y/o male found sitting in bed. States that he does not feel strong. Reports intermittent SOB but denies same at present. Denies pain. Vital Signs Period Temp Pulse Resp BP Sys/Whitehead Pulse Ox Last 24 Hr 97.6 F-98.7 F 33-105 18-20 100-172/43-71 96-96 CBC, BMP 03/13/19 06:50 03/17/19 06:19 HEENT- NL Neck- Trachea midline Lungs- CTAB Heart- S1/ S2 Abd- soft, NT Ext- No LE edema Active Medications Acetaminophen (Tylenol -) 650 mg PO Q6H PRN PRN Reason: PAIN LEVEL 1-5 Last Admin: 03/17/19 23:13 Dose: 650 mg Allopurinol (Zyloprim -) 100 mg PO DAILY [facility] Last Admin: 03/17/19 09:29 Dose: 100 mg Artificial Tears (Artificial Tears) 1 drop OU Q6H PRN PRN Reason: DRY EYES Aspirin (Ecotrin -) 162 mg PO DAILY [facility] Last Admin: 03/17/19 09:29 Dose: 162 mg Atorvastatin Calcium (Lipitor -) 40 mg PO HS [facility] Last Admin: 03/17/19 23:13 Dose: 40 mg Colchicine (Colcrys) 0.6 mg PO BIDWM [facility] Last Admin: 03/17/19 17:57 Dose: 0.6 mg Furosemide (Lasix -) 80 mg PO BID@0600,1400 [facility] Last Admin: 03/18/19 06:35 Dose: 80 mg Insulin Aspart (Novolog Vial Sliding Scale -) 1 vial SQ [facility]; Protocol Last Admin: 03/18/19 06:35 Dose: 2 units Methylprednisolone Sodium Succinate (Solu-Medrol -) 40 mg IVPUSH DAILY [facility] Last Admin: 03/17/19 09:29 Dose: 40 mg Pantoprazole Sodium (Protonix -) 40 mg PO DAILY [facility] Last Admin: 03/17/19 09:29 Dose: 40 mg Spironolactone (Aldactone -) 25 mg PO BID [facility] Last Admin: 03/17/19 23:13 Dose: 25 mg Tamsulosin HCl (Flomax -) 0.4 mg PO BID@0830,2200 [facility] Last Admin: 03/17/19 23:13 Dose: 0.4 mg # HF Improved Monitor as oupt # CKD BUN/ creatinine stable #HTN continue meds # DM insulin sliding scale ADA diet # GOUT colchicine BID Solumedrol taper # CAD s/p CABG stable # Arrhythmia hx of 1 degree HB / VPC Plan- Awaiting DC for STR. Problem List - Problems (1) Acute on chronic diastolic (congestive) heart failure Code(s): I50.33 - ACUTE ON CHRONIC DIASTOLIC (CONGESTIVE) HEART FAILURE (2) CHF (congestive heart failure) Code(s): I50.9 - HEART FAILURE, UNSPECIFIED (3) CKD (chronic kidney disease) Code(s): N18.9 - CHRONIC KIDNEY DISEASE, UNSPECIFIED (4) CKD (chronic kidney disease) stage 3, GFR 30-59 ml/min Code(s): N18.3 - CHRONIC KIDNEY DISEASE, STAGE 3 (MODERATE) (5) Diabetes Code(s): E11.9 - TYPE 2 DIABETES MELLITUS WITHOUT COMPLICATIONS Qualifiers: Diabetes mellitus long-term insulin use: with loading supervisor use Diabetes mellitus complication detail: with unspecified neuropathy (6) Electrolyte abnormality Code(s): E87.8 - OTH DISORDERS OF ELECTROLYTE AND FLUID BALANCE, NEC (7) Hx of CABG Code(s): Z95.1 - PRESENCE OF AORTOCORONARY BYPASS GRAFT (8) Hyperlipidemia Code(s): E78.5 - HYPERLIPIDEMIA, UNSPECIFIED (9) Inflammatory arthritis Code(s): M19.90 - UNSPECIFIED OSTEOARTHRITIS, UNSPECIFIED SITE (10) Leg edema Code(s): R60.0 - LOCALIZED EDEMA (11) Morbid obesity Code(s): E66.01 - MORBID (SEVERE) OBESITY DUE TO EXCESS CALORIES (12) Spinal stenosis of lumbar region Code(s): M48.06 - SPINAL STENOSIS, LUMBAR REGION * DO NOT USE * (13) Swelling of joint, wrist, right Code(s): M25.431 - EFFUSION, RIGHT WRIST
[2019-03-18] MEDS: ASPIRIN COATED 81 MG TABLET.EC PO SCH (11:07)
[2019-03-18] MEDS: COLCHICINE 0.6 MG CAP PO SCH (11:07)
[2019-03-18] MEDS: PANTOPRAZOLE 40 MG TABLET (FP) PO SCH (11:08)
[2019-03-18] MEDS: methylPREDNISolone NA SUCC 40 MG/1 ML VIAL IVPUSH SCH (11:08)
[2019-03-18] MEDS: ALLOPURINOL 100 MG TABLET (FP) PO SCH (11:08)
[2019-03-18] MEDS: SPIRONOLACTONE 25 MG TABLET (FP) PO SCH (11:08)
[2019-03-18] MEDS: TAMSULOSIN HCL 0.4 MG CAP PO SCH (11:08)
--- NOTE | 2019-03-18 11:35 | PN ---
Progress Note (short form) - Note Progress Note: s:. no chest pain, palps, dizziness sob Current Medications Generic Name Dose Route Start Last Admin Trade Name Freq PRN Reason Stop Dose Admin Acetaminophen 650 mg 03/14/19 11:43 03/17/19 23:13 Tylenol - PO 650 mg Q6H PRN Administration PAIN LEVEL 1-5 Allopurinol 100 mg 03/14/19 10:00 03/18/19 11:08 Zyloprim - PO 100 mg DAILY JENNIFER Administration Artificial Tears 1 drop 03/08/19 14:09 Artificial Tears OU Q6H PRN DRY EYES Aspirin 162 mg 03/09/19 10:00 03/18/19 11:07 Ecotrin - PO 162 mg DAILY [facility]ENN[facility]ER Administration Atorvastatin Calcium 40 mg 03/08/19 22:00 03/17/19 23:13 Lipitor - PO 40 mg HS JENNIFER Administration Colchicine 0.6 mg 03/08/19 17:30 03/18/19 11:07 Colcrys PO 0.6 mg BIDWM JENNIFER Administration Furosemide 80 mg 03/15/19 14:00 03/18/19 06:35 Lasix - PO 80 mg BID@0600,1400 JENNIFER Administration Insulin Aspart 1 vial 03/08/19 16:30 03/18/19 06:35 Novolog Vial Sliding Scale - SQ 2 units ACHS JENNIFER Administration Protocol Methylprednisolone Sodium Succinate 40 mg 03/15/19 10:00 03/18/19 11:08 Solu-Medrol - IVPUSH 40 mg DAILY [facility]ENN[facility]ER Administration Pantoprazole Sodium 40 mg 03/09/19 10:00 03/18/19 11:08 Protonix - PO 40 mg DAILY [facility]ENNIEFR Administration Spironolactone 25 mg 03/12/19 22:00 03/18/19 11:08 Aldactone - PO 25 mg BID JENNIFER Administration Tamsulosin HCl 0.4 mg 03/08/19 22:00 03/18/19 11:08 Flomax - PO 0.4 mg BID@0830,2200 JENNIFER Administration Vital Signs Period Temp Pulse Resp BP Sys/Whitehead Pulse Ox Last 24 Hr 97.6 F-98.7 F 33-105 18-20 100-172/43-71 96-96 Constitutional: Yes: Well Nourished, No Distress, Calm Eyes: Yes: Conjunctiva Clear Neck: Yes: Supple, Trachea Midline Respiratory: Yes: cta bl nl eff Gastrointestinal: Yes: Normal Bowel Sounds, Soft Cardiovascular: Yes: Pulse Irregular JVD: Yes Carotid Bruit: No PMI: Non-Displaced Heart Sounds: Yes: S1, S2 Extremities: No: Cold Edema: no Integumentary: No: Jaundice Neurological: Yes: Alert, Oriented Psychiatric: not agitated CBC, BMP 03/13/19 06:50 03/17/19 06:19 echo 06/2017: mild dec lvef, nl rv, mild mr, mild-mod tr, rvsp 40-50, mild ar, mild pr mibi 04/2018: mild nonextensive apical ischemia. anterolateral scar, lvef 43 cxr: congestive changes tele: sinus a/p: 78 m hx cad, mi x2, cabg 2012, pci x2 2017, mobitz I, dchf, copd, dm, htn , hld, ckd here with sob, le edema. Acute on chronic mixed syst/diastolic chf (mid-range EF): -frequent HF admits. last d/c 01/12 with wt 237 lbs.-->wt up here 256 lbs, now at baseline -changed to PO lasix, weight stable - continue PO lasix 80 mg BID -cont spironolactone Gout: - manage per primary, on solumedrol and colchicine CKD, hyperkalemia: - baseline creat 2-2.5 - renal fxn, K stable CAD: -stable, no signs acs -cont asa, statin -recent stress test with low risk findings, continue current medical management of cad. Abnl ecg, akiraitz 1: -chronic finding, stable HTN: -bp mildly elevated -cont current meds--reassess bp as outpatient HLD: -cont statin stable for dc from cardiac perspective
--- NOTE | 2019-03-18 11:42 | PN ---
Progress Note, Physician History of Present Illness: Pt seen and examined at bedside. He is awake and alert. He denies shortness of breath. - Current Medication List Current Medications: Active Medications Acetaminophen (Tylenol -) 650 mg PO Q6H PRN PRN Reason: PAIN LEVEL 1-5 Last Admin: 03/17/19 23:13 Dose: 650 mg Allopurinol (Zyloprim -) 100 mg PO DAILY [facility] Last Admin: 03/18/19 11:08 Dose: 100 mg Artificial Tears (Artificial Tears) 1 drop OU Q6H PRN PRN Reason: DRY EYES Aspirin (Ecotrin -) 162 mg PO DAILY [facility] Last Admin: 03/18/19 11:07 Dose: 162 mg Atorvastatin Calcium (Lipitor -) 40 mg PO HS [facility] Last Admin: 03/17/19 23:13 Dose: 40 mg Colchicine (Colcrys) 0.6 mg PO BIDWM [facility] Last Admin: 03/18/19 11:07 Dose: 0.6 mg Furosemide (Lasix -) 80 mg PO BID@0600,1400 [facility] Last Admin: 03/18/19 06:35 Dose: 80 mg Insulin Aspart (Novolog Vial Sliding Scale -) 1 vial SQ [facility]; Protocol Last Admin: 03/18/19 06:35 Dose: 2 units Methylprednisolone Sodium Succinate (Solu-Medrol -) 40 mg IVPUSH DAILY [facility] Last Admin: 03/18/19 11:08 Dose: 40 mg Pantoprazole Sodium (Protonix -) 40 mg PO DAILY [facility] Last Admin: 03/18/19 11:08 Dose: 40 mg Spironolactone (Aldactone -) 25 mg PO BID [facility] Last Admin: 03/18/19 11:08 Dose: 25 mg Tamsulosin HCl (Flomax -) 0.4 mg PO BID@0830,2200 [facility] Last Admin: 03/18/19 11:08 Dose: 0.4 mg - Objective Vital Signs: Vital Signs Temperature 97.8 F 03/18/19 05:00 Pulse Rate 33 L 03/18/19 05:00 Respiratory Rate 18 03/18/19 05:00 Blood Pressure 128/56 L 03/18/19 05:00 O2 Sat by Pulse Oximetry (%) 96 03/17/19 22:00 Constitutional: Yes: Calm Eyes: Yes: Conjunctiva Clear HENT: Yes: Atraumatic Neck: Yes: Supple Cardiovascular: Yes: S1, S2 Respiratory: Yes: CTA Bilaterally Gastrointestinal: Yes: Soft Genitourinary: Yes: WNL Musculoskeletal: Yes: WNL Edema: Yes Edema: LLE: 1+, RLE: 1+ Neurological: Yes: Oriented Psychiatric: Yes: Oriented Labs: CBC, BMP 03/13/19 06:50 03/17/19 06:19 Problem List - Problems (1) Acute on chronic diastolic (congestive) heart failure Code(s): I50.33 - ACUTE ON CHRONIC DIASTOLIC (CONGESTIVE) HEART FAILURE (2) CKD (chronic kidney disease) Code(s): N18.9 - CHRONIC KIDNEY DISEASE, UNSPECIFIED Assessment/Plan Current Medications Generic Name Dose Route Start Last Admin Trade Name Freq PRN Reason Stop Dose Admin Acetaminophen 650 mg 03/14/19 11:43 03/17/19 23:13 Tylenol - PO 650 mg Q6H PRN Administration PAIN LEVEL 1-5 Allopurinol 100 mg 03/14/19 10:00 03/18/19 11:08 Zyloprim - PO 100 mg DAILY JENNIFER Administration Artificial Tears 1 drop 03/08/19 14:09 Artificial Tears OU Q6H PRN DRY EYES Aspirin 162 mg 03/09/19 10:00 03/18/19 11:07 Ecotrin - PO 162 mg DAILY [facility]ENN[facility]ER Administration Atorvastatin Calcium 40 mg 03/08/19 22:00 03/17/19 23:13 Lipitor - PO 40 mg HS JENNIFER Administration Colchicine 0.6 mg 03/08/19 17:30 03/18/19 11:07 Colcrys PO 0.6 mg BIDWM JENNIFER Administration Furosemide 80 mg 03/15/19 14:00 03/18/19 06:35 Lasix - PO 80 mg BID@0600,1400 JENNIFER Administration Insulin Aspart 1 vial 03/08/19 16:30 03/18/19 06:35 Novolog Vial Sliding Scale - SQ 2 units ACHS JENNIFER Administration Protocol Methylprednisolone Sodium Succinate 40 mg 03/15/19 10:00 03/18/19 11:08 Solu-Medrol - IVPUSH 40 mg DAILY JENN[facility]ER Administration Pantoprazole Sodium 40 mg 03/09/19 10:00 03/18/19 11:08 Protonix - PO 40 mg DAILY JENN[facility]ER Administration Spironolactone 25 mg 03/12/19 22:00 03/18/19 11:08 Aldactone - PO 25 mg BID JENNIFER Administration Tamsulosin HCl 0.4 mg 03/08/19 22:00 03/18/19 11:08 Flomax - PO 0.4 mg BID@0830,2200 JENNIFER Administration Impression 1. CKD 2. CHF 3. DM 4. obesity 5. HTN 6. dyspnea 7. HLD 8. CAD s/p cabg 9. volume overload 10. hyperkalemia Plan - cont lasix 80 bid - cont aldactone - 2 gram sodium diet - volumes status improving - will need close outpt follow-up - cardio input appreciated
[2019-03-18] MEDS ORDERED: VITAMIN B COMP W-C 1 EA TABLET PO SCH (11:45)
== END 2019-03-18 17:20 | disposition home health service (06) | DRG 291 ==
LOC: JER 09:53 → JERBED 13:31 → J4W 16:47
PROVIDERS: ADMIT Family Medicine; ATTEND Family Medicine
DX: I13.0 Hypertensive heart and chronic kidney disease with heart failure and stage 1 through stage 4 chronic kidney disease, or unspecified chronic kidney disease (principal); I50.43 Acute on chronic combined systolic (congestive) and diastolic (congestive) heart failure; E11.9 Type 2 diabetes mellitus without complications; N18.3 Chronic kidney disease, stage 3 (moderate); J44.9 Chronic obstructive pulmonary disease, unspecified; I25.10 Atherosclerotic heart disease of native coronary artery without angina pectoris; E78.5 Hyperlipidemia, unspecified; E66.01 Morbid (severe) obesity due to excess calories; E87.5 Hyperkalemia; I44.1 Atrioventricular block, second degree; M10.9 Gout, unspecified; Z95.1 Presence of aortocoronary bypass graft; Z68.37 Body mass index [BMI] 37.0-37.9, adult; E87.70 Fluid overload, unspecified; Z98.61 Coronary angioplasty status
CPT/HCPCS: 36415; 71045-TC-FY; 80048; 80053; 81003; 82550; 82553; 82962; 83735; 83880; 84443; 84484; 84550; 85025; 93005; 93010; 97116-GP; 97161-GP; 99284-25; Q2036

== ENCOUNTER 2019-06-04 07:27 | Day surgery (SDC) | payer BC ==
[2019-06-03 13:52] VITALS: BMI 36.1
[2019-06-04] MEDS ORDERED: DEXTROSE 50%-WATER - 25 GM/50 ML VIAL ONE (08:30)
[2019-06-04] MEDS ORDERED: BUPIVACAINE HCL/PF 0.75% 10 ML VIAL NR ONE ×2 (10:47)
[2019-06-04] MEDS ORDERED: IOHEXOL 180 MG/1 ML ML IJ ONE ×2 (10:47)
[2019-06-04] MEDS ORDERED: LIDOCAINE HCL 1%, 10 MG/ML (20ML VIAL) NR ONE ×2 (10:47)
[2019-06-04 11:26] VITALS: BP 118/51; PULSE 59; TEMP 97.3
== END 2019-06-04 11:50 | disposition home or self-care (01) ==
LOC: JASU-SURG 07:27
PROVIDERS: ATTEND Pain Medicine Pain Medicine
PROC: BR16YZZ Fluoroscopy of Lumbar Facet Joint(s) using Other Contrast (ICD-10-PCS; 2019-06-04)
PROC: 3E0T3BZ Introduction of Anesthetic Agent into Peripheral Nerves and Plexi, Percutaneous Approach (ICD-10-PCS; principal; 2019-06-04 10:30)
DX: M12.88 Other specific arthropathies, not elsewhere classified, other specified site (principal); M54.5 Low back pain
CPT/HCPCS: 82962